=== PATIENT | female | born 1980 | race African-American/Black ===

== ENCOUNTER 2016-11-16 16:14 | Inpatient (IN) | payer OTHER ==
[~2016-11-16] VITALS: Ht 177.8 cm; Wt 171.2 kg
[2016-11-16] VITALS (7 sets, daily range): BP systolic 135–186; BP diastolic 94–107; PULSE 128–137; RESP 19–20; TEMP 98.5; O2SAT 96–100
[~2016-11-16 16:14] MED LIST: CYCL1PAK PO; KCL20 PO; LACTATED RINGER'S 1000 ML INJ 1,000 ML IV ONE; LEVA750T PO; METO25 PO; METO5 PO; METO5TAB46 PO; NEOSTIGMINE 3 MG/3 ML SYR IV ONE; NORMOSOL R INJ 1,000 ML IV ONE; ONDANSETRON HCL 4 MG/2 ML VIAL IV PUSH ONE; PERC5TAB12 PO; PHENYLEPH/NS 1000 MCG/10 ML SYR IV ONE; POTA10TA2 PO; PROPOFOL 200 MG/20 ML AMP IV ONE; TRAM50 PO; TRAZ50TA4 PO
[2016-11-16] MEDS ORDERED: CLINDAMYCIN INJ 900 MG in SODIUM CHLORIDE 0.9% INJ 100 ML IV STA (17:56)
[2016-11-16] MEDS ORDERED: PIPERACIL-TAZO 4.5 GM PREMIX 100 ML IV STA (17:56)
[2016-11-16] MEDS ORDERED: VANCOMYCIN INJ 2,000 MG in SODIUM CHLORID 0.9% 500 ML INJ 500 ML IV STA (17:56)
[2016-11-16] MEDS ORDERED: TETANUS/DIPHTHERIA TOXOID ADULT 0.5 ML VIAL IM ONE (18:15)
--- NOTE | 2016-11-16 18:27 | PD ---
HPI Chief Complaint: Skin Problem Time Seen by Provider: 18:03 Travel History International Travel<30 days: No Contact w/Intl Traveler<30days: No History of Present Illness HPI Patient is a 30 sexual female presenting to the [facility] for evaluation of an abscess to her left chest wall. Patient states the boil on her upper arms started 2 weeks ago, a second spot started 3 days ago her EKG reports night sweats but denies any fevers. She reports her pain as a 10 out of 10 and describes it as throbbing and very sore. Patient also has a history of chronic lymphedema her right lower leg is always more edematous than the left however it is been slightly red for the last 2 days as well. Patient reports that the chest wall spontaneously started draining 2-3 days ago. She denies any chest pain, shortness of breath, abdominal pain. Patient states that she also has a lump on her back that has been there for several months that her sister pointed out to her. This is not painful or tender. PFSH Past Medical History Asthma: No Blood Disorders: No Anxiety: No Depression: No Heart Rhythm Problems: No Cancer: No Cardiovascular Problems: No High Cholesterol: No Chemotherapy: No Chest Pain: No Congestive Heart Failure: No COPD: No Endocrine: No Genitourinary: No Hypertension: Yes Immune Disorder: No Medical other: Yes (morbid obesity) Musculoskeletal: No Neurologic: No Psychiatric: No Reproductive: No Respiratory: No Integumentary: Yes (chronic lymphedema) Radiation Therapy: No Sleep Apnea: No Tetanus Vaccination: Unknown Influenza Vaccination: No ?: Not LMP: 2 YRS : 0 Ovarian Cysts: Yes (bilateral ) Past Surgical History Surgical History: No Previous Surgery Social History Alcohol Use: Yes (weekly ) Tobacco Use: Yes (1-2 cigarettes a day) Substance Use: Yes (marijuana 3-4 times a week) Allergies-Medications (Allergen,Severity, Reaction): Coded Allergies: No Known Allergies (Unverified , 11/16/16) Reported Meds & Prescriptions Reported Meds & Active Scripts Active Reported Metolazone 5 Mg Tab 5 Mg PO DAILY Metoprolol Tartrate 25 Mg Tab 25 Mg PO BID K-Tab (Potassium Chloride) 20 Meq Tab 20 Meq PO BID Trazodone (Trazodone HCl) 50 Mg Tab 50 Mg PO HS Advil (Ibuprofen) 200 Mg Tab 400 Mg PO QID PRN Tylenol Pm Extra Strength (Diphenhydramine-Acetaminophen) 25-500 Mg Tab 2 Tab PO HS Flexeril (Cyclobenzaprine HCl) 10 Mg Tab 10 Mg PO HS Review of Systems Except as stated in HPI: all other systems reviewed are Neg General / Constitutional: Positive: Other (night sweats) Cardiovascular: No: Chest Pain or Discomfort Respiratory: No: Shortness of Breath Gastrointestinal: No: Nausea, Abdominal Pain Musculoskeletal: Positive: Pain Skin: Positive Lesions (left chest wall), Positive Breast Tenderness, Positive Breast Swelling (left breast edema and erythema), Positive Other Physical Exam Narrative GENERAL: Morbidly obese female. Resting comfortably in no acute distress. SKIN: Multiple Ulcerations to left chest wall and left axilla. Draining copious amounts of brown foul-smelling fluid. 6 cm area of fluctuance to the right upper back, no erythema noted to that area. HEAD: Atraumatic. Normocephalic. EYES: Pupils equal and round. No scleral icterus. No injection or drainage. ENT: No nasal bleeding or discharge. Mucous membranes pink and moist. NECK: Trachea midline. No JVD. CARDIOVASCULAR: Regular rate and rhythm. No murmur appreciated. RESPIRATORY: No accessory muscle use. Clear to auscultation. Breath sounds equal bilaterally. GASTROINTESTINAL: Abdomen obese, soft, non-tender, nondistended. Hepatic and splenic margins not palpable. Positive bowel sounds. MUSCULOSKELETAL: No obvious deformities. No clubbing. No cyanosis. Bilateral lower extremity edema right worse than the left mild erythema to the right lower leg. NEUROLOGICAL: Awake and alert. No obvious cranial nerve deficits. Motor grossly within normal limits. Normal speech. PSYCHIATRIC: Appropriate mood and affect; insight and judgment normal. Data Data Last Documented VS Vital Signs Date Time Temp Pulse Resp B/P Pulse Ox O2 Delivery O2 Flow Rate FiO2 11/16/16 18:07 97 Room Air 11/16/16 17:54 128 19 138/97 11/16/16 16:16 98.5 Orders Electrocardiogram (11/16/16 17:56) Complete Blood Count With Diff (11/16/16 17:56) Comprehensive Metabolic Panel (11/16/16 17:56) Prothrombin Time / Inr (Pt) (11/16/16 17:56) Act Partial Throm Time (Ptt) (11/16/16 17:56) Lactic Acid Sepsis Protocol (11/16/16 17:56) Magnesium (Mg) (11/16/16 17:56) Ckmb (Isoenzyme) Profile (11/16/16 17:56) Troponin I (11/16/16 17:56) Urinalysis - C+S If Indicated (11/16/16 17:56) Blood Culture (11/16/16 17:56) Wound Culture And Gram Stain (11/16/16 17:56) Blood Glucose (11/16/16 17:56) Ecg Monitoring (11/16/16 17:56) Iv Access Insert/Monitor (11/16/16 17:56) Oximetry (11/16/16 17:56) Oxygen Administration (11/16/16 17:56) Piperacil-Tazo 4.5 Gm Premix (Zosyn 4.5 (11/16/16 17:56) Clindamycin Inj (Cleocin Inj) (11/16/16 17:56) Vancomycin Inj (Vancomycin Inj) (11/16/16 17:56) Ed Urine Pregnancytest Poc (11/16/16 17:56) Tetanus/Diphtheria Tox Adult (Tetanus/Di (11/16/16 18:15) Us Leg Venous Doppler (11/16/16 ) Admit Order (Ed Use Only) (11/16/16 18:34) MDM Medical Decision Making Medical Screen Exam Complete: Yes Emergency Medical Condition: Yes Interpretation(s) Vital Signs Date Time Temp Pulse Resp B/P Pulse Ox O2 Delivery O2 Flow Rate FiO2 11/16/16 16:55 171/103 11/16/16 16:16 98.5 137 20 186/107 96 Room Air Differential Diagnosis Necrotizing fasciitis versus abscess versus cellulitis versus gangrene Narrative Course Patient is a 36-year-old female presenting to the emergency department for evaluation of left chest wall wound that started 2 weeks ago as a boil and has progressed, opening yesterday spontaneously reining copious amounts of brown foul-smelling fluid. Patient has multiple ulcerations to her left lateral chest wall, the erythema extends to the left breast which is firm and tender. Initial EKG shows sinus tachycardia with a rate of 121. Due to the extensive nature of the chest wall wound, Dr. Jose Armando Lainez was paged and notified regarding patient's presentation. Dr. Lainez came to the emergency department to evaluate patient, he will be taking the patient to the OR as soon as possible for I&D. Dr. Lainez requested patient be placed in intensive care, Dr. Wright intensivists paged for admission. Admission order placed. Labs and imaging ordered and pending, sepsis protocol initiated. Vancomycin, clindamycin, Zosyn ordered. Patient will be kept nothing by mouth, she last ate 2 hours ago. Patient is aware of plan of care. Patient is agreeable. Patient's vital signs are stable currently. My attending physician also evaluated patient. Labs, wound culture, IV access obtained prior to patient going to the OR at 1900 hrs. Venous Doppler of the right lower extremity was ordered due to erythema and increased edema to the right lower leg. 1900 patient transferred to the OR. Sepsis Criteria SIRS Criteria (2 or more): Heart rate over 90, WBC > 59014, < 4000 or > 10% bands Sepsis Criteria (SIRS+source): Infect source susp/known Severe Sepsis (+one): Lactate >2 Diagnosis Primary Impression: Sepsis Qualified Code: A41.9 - Sepsis, due to unspecified organism Additional Impressions: Abscess of chest wall Hypokalemia Hypertension Qualified Code: I10 - Essential hypertension Chronic acquired lymphedema Morbid obesity Qualified Code: E66.01 - Morbid obesity, unspecified obesity type Admitting Information Admitting Physician Requests: Admit Condition: Naheed Robin Nov 16, 2016 18:27
[2016-11-16] MEDS ORDERED: DIPH1TAB36 PO (18:35)
[2016-11-16] MEDS ORDERED: POTA1TAB4 PO (18:35)
[2016-11-16] MEDS ORDERED: TRAZ50TA12 PO (18:35)
[2016-11-16] MEDS ORDERED: IBUP-988 PO (18:35)
[2016-11-16] MEDS ORDERED: METO25TA3 PO (18:37)
[2016-11-16] MEDS ORDERED: CYCL1TAB29 PO (18:37)
[2016-11-16] MEDS ORDERED: METO5TAB3 PO (18:37)
[2016-11-16 19:04] LABS: AUTOMATED NEUTROPHIL # 14.2 TH/MM3 (1.8-7.7); BASOPHIL # 0.1 TH/MM3 (0-0.2); BASOPHIL % 0.4 % (0.0-2.0); EOSINOPHIL # 0.1 TH/MM3 (0-0.4); EOSINOPHIL % 0.6 % (0.0-4.0); HEMATOCRIT 39.2 % (35.0-46.0); LYMPH % 7.2 % (9.0-44.0); LYMPHOCYTE # 1.2 TH/MM3 (1.0-4.8); MEAN CELL VOLUME 85.7 FL (80.0-100.0); MEAN CORPUSCULAR HEMOGLOBIN 26.2 PG (27.0-34.0); MEAN CORPUSCULAR HGB CONC 30.6 % (32.0-36.0); NEUT % 83.8 % (16.0-70.0); PLATELET COUNT 335 TH/MM3 (150-450); RED BLOOD COUNT 4.57 MIL/MM3 (4.00-5.30); RED CELL DISTRIBUTION WIDTH 17.5 % (11.6-17.2); WHITE BLOOD COUNT 16.9 TH/MM3 (4.0-11.0)
[2016-11-16 19:11] LABS: HEMO FLAGS AUTO DIFF
[2016-11-16] MEDS ORDERED: KETAMINE HCL 500 MG/5 ML VIAL ONE (19:12)
[2016-11-16 19:19] LABS: ANION GAP 13 MEQ/L (5-15); AST (GOT) 33 U/L (15-37); BICARBONATE 20.5 MEQ/L (21.0-32.0); BLOOD UREA NITROGEN 11 MG/DL (7-18); CHLORIDE 105 MEQ/L (98-107); GLOMERULAR FILTRATION RATE 80 ML/MIN (>89); MAGNESIUM 1.8 MG/DL (1.5-2.5); POTASSIUM 3.1 MEQ/L (3.5-5.1); SODIUM (NA) 138 MEQ/L (136-145)
[2016-11-16 19:23] LABS: ALKALINE PHOSPHATASE 174 U/L (45-117); ALT (GPT) 36 U/L (10-53); TOTAL BILIRUBIN ADULT 0.2 MG/DL (0.2-1.0)
[2016-11-16 19:29] LABS: APTT (PATIENT) 27.2 SEC (24.3-30.1)
[2016-11-16 19:49] LABS: SCAN/DIFF AUTO DIFF CONFIRMED
[2016-11-16 19:54] LABS: CREATINE KINASE 80 U/L (26-192)
[2016-11-16 20:22] LABS: BLOOD GAS BASE EXCESS -3.5 mmol/L (-2-2); BLOOD GAS CARBOXYHEMOGLOBIN 1.2 % (0-4); BLOOD GAS HCO3 21 mmol/L (22-26); BLOOD GAS METHEMOGLOBIN 1.3 % (0-2); BLOOD GAS O2 HGB SATURATION 96 % (90-100); BLOOD GAS OXYGEN CONTENT 17.9 Vol % (12.0-20.0); BLOOD GAS PCO2 35 mmHg (38-42); BLOOD GAS PO2 183 mmHg (61-120); BLOOD GAS TOTAL HGB 12.9 G/DL (12.0-16.0); CRITICAL VALUE NO; TEMP CORR TO 98.6
[2016-11-16 20:23] LABS: DRAW SITE OR GAS; OXYGEN DEVICE OR GAS; STAT YES
[2016-11-16 20:52] LABS: LACTIC ACID GHOST NOT REPORTABLE
[2016-11-16] MEDS ORDERED: PROPOFOL 1000 MG/100 ML INJ 100 ML ONE (21:35)
--- NOTE | 2016-11-16 21:45 | HHI.PR ---
Immediate Post Op Note Procedure Date: Nov 16, 2016 Pre Op Diagnosis: (1) Morbid obesity (2) Sepsis (3) Abscess of chest wall (4) Necrotizing cellulitis Post Op Diagnosis: (1) Abscess of chest wall (2) Morbid obesity (3) Sepsis (4) Necrotizing cellulitis Surgeon: Jose Armando Lainez Web Development Manager(s): dominga Procedure: wide local excision necrotizing soft tissue infection LEFT axilla, chest/breast , back [id number] Anesthesia: General Patient to: PACU Patient Condition: Critical Jose Armando Lainez MD Nov 16, 2016 21:45
[2016-11-16] MEDS ORDERED: fentaNYL CITRATE 250 MCG/5 ML AMP ONE (22:18)
[2016-11-16] MEDS: LACTATED RINGER'S 1000 ML INJ 1,000 ML IV SCH (22:45)
--- NOTE | 2016-11-16 22:52 | HHI.HP ---
[facility] Service Critical Care Medicine Primary Care Physician Jimmie Gutierrez Admission Diagnosis chest wall infection, sepsis Diagnosis: Travel History International Travel<30 Days: No Contact w/Intl Traveler <30 Da: No History of Present Illness 36 yo morbidly obese female with past medical history of hypertension, bilateral lower extremity lymphedema who has undergone operative debridement for necrotizing fasciitis of left axilla, chest, back. Reportedly, about two weeks ago she developed a boil in left axilla after shaving. This eventually drained spontaneously and showed some initial improvement. She then developed blisters of the axilla and chest wall. About 2 days ago she developed some drainage from left chest. She had subjective fevers. She presented to [facility] where Dr. Lainez was consulted emergently for evaluation for necrotizing fasciitis. She provided informed surgical consent and was taken emergently to OR where she underwent debridement of left axilla, breast, left chest wall, back with wound VAC placement. Anesthesia records indicate that she was intubated with 2 Grant without reported difficulty. She received 2500 crystalloid. Estimated blood loss was 350. She received Zosyn, clindamycin, vancomycin. She was briefly on pressors in the OR but these have been weaned off. She is to remain intubated for postoperative resuscitation and for tentative plan to return to OR Monday morning 11/18/16 for debridement and wound vac change. Review of Systems ROS Limitations: Intubated Past Family Social History Allergies: Coded Allergies: No Known Allergies (Unverified , 11/16/16) Past Medical History Hypertension Ovarian cyst Chronic pain Morbid obesity Past Surgical History Denied past surgical history Reported Medications Trazodone 50 mg by mouth daily at bedtime Diphenhydramine/acetaminophen 25/502 tabs by mouth daily at bedtime when necessary sleep Metoprolol 25 mill grams by mouth twice a day for tachycardia Flexeril 10 mg by mouth daily at bedtime for muscle spasm Advil 400 mill grams by mouth 4 times a day when necessary pain Potassium chloride 20 mg by mouth twice a day Metolazone 5 mg by mouth daily for edema Family History Mother has diabetes Social History Unable to obtain social history from patient because she is currently intubated. She reported to Dr. lainez that she is a smoker. During prior admission she reported that she quit smoking in [address] lainez that she drinks alcohol on the weekends. She previously reported drinking a sixpack 2-3 days a week during a prior admission. She reported history of marijuana use. Physical Exam Vital Signs Vital Signs Date Time Temp Pulse Resp B/P Pulse Ox O2 Delivery O2 Flow Rate FiO2 11/16/16 22:00 96 70 11/16/16 22:00 96 70 11/16/16 19:02 124 19 135/94 98 11/16/16 18:07 97 Room Air 11/16/16 17:54 128 19 138/97 98 Room Air 11/16/16 16:55 171/103 11/16/16 16:16 98.5 137 20 186/107 96 Room Air Physical Exam Drips: Propofol 50 g per KG per minute GENERAL: Morbidly obese female who is orotracheally intubated. SKIN: Warm and dry. HEAD: Atraumatic. Normocephalic. EYES: Pupils equal and round. No scleral icterus. No injection or drainage. ENT: No nasal bleeding or discharge. Mucous membranes pink and moist. NECK: Trachea midline. No JVD. CARDIOVASCULAR: Regular rate and rhythm. No murmurs rubs or gallops. RESPIRATORY: No accessory muscle use. Clear to auscultation. Breath sounds equal bilaterally. GASTROINTESTINAL: Abdomen soft, non-tender, nondistended. Hepatic and splenic margins not palpable. : Marvin in place with yellow urine output. MUSCULOSKELETAL: Extremities without clubbing, cyanosis. Left breast with some swelling. Wound vac in place Left chest wall with scant serosanginous output. No surrounding erythema. VASC: Right IJ central venous line in place with dressing clean/dry/intact. Right radial art line in place. NEUROLOGICAL: Sedated in PACU upon return from OR. Laboratory Laboratory Tests Test 11/16/16 11/16/16 18:45 20:06 White Blood Count 16.9 Red Blood Count 4.57 Hemoglobin 12.0 Hematocrit 39.2 Mean Corpuscular Volume 85.7 Mean Corpuscular Hemoglobin 26.2 Mean Corpuscular Hemoglobin 30.6 Concent Red Cell Distribution Width 17.5 Platelet Count 335 Mean Platelet Volume 8.2 Neutrophils (%) (Auto) 83.8 Lymphocytes (%) (Auto) 7.2 Monocytes (%) (Auto) 8.0 Eosinophils (%) (Auto) 0.6 Basophils (%) (Auto) 0.4 Neutrophils # (Auto) 14.2 Lymphocytes # (Auto) 1.2 Monocytes # (Auto) 1.4 Eosinophils # (Auto) 0.1 Basophils # (Auto) 0.1 CBC Comment AUTO DIFF Differential Comment AUTO DIFF CONFIRMED Prothrombin Time 11.0 Prothromb Time International 1.0 Ratio Activated Partial 27.2 Thromboplast Time Sodium Level 138 Potassium Level 3.1 Chloride Level 105 Carbon Dioxide Level 20.5 Anion Gap 13 Blood Urea Nitrogen 11 Creatinine 0.96 Estimat Glomerular Filtration 80 Rate Random Glucose 265 Lactic Acid Level 3.8 Calcium Level 8.5 Magnesium Level 1.8 Total Bilirubin 0.2 Aspartate Amino Transf 33 (AST/SGOT) Alanine Aminotransferase 36 (ALT/SGPT) Alkaline Phosphatase 174 Total Creatine Kinase 80 Troponin I LESS THAN 0.02 Total Protein 7.2 Albumin 1.7 Blood Gas Puncture Site OR GAS Blood Gas Patient Temperature 98.6 Blood Gas HCO3 21 Blood Gas Base Excess -3.5 Blood Gas Oxygen Saturation 96 Arterial Blood pH 7.39 Arterial Blood Partial 35 Pressure CO2 Arterial Blood Partial 183 Pressure O2 Arterial Blood Oxygen Content 17.9 Arterial Blood 1.2 Carboxyhemoglobin Arterial Blood Methemoglobin 1.3 Blood Gas Hemoglobin 12.9 Oxygen Delivery Device OR GAS Date/Time Procedure Status Source Growth 11/16/16 18:50 Gram Stain Received Wound Chest Pending 11/16/16 18:50 Wound Culture Received Wound Chest Pending 11/16/16 18:45 Aerobic Blood Culture Received Blood Peripheral Pending 11/16/16 18:45 Anaerobic Blood Culture Received Blood Peripheral Pending Result Diagram: 11/16/16 1845 11/16/16 1845 Assessment and Plan Assessment and Plan NEURO: Propofol for sedation Target RASS -2 RESP: Adjust vent to PRVC TV 450 R 18 PEEP 8 IT O.8 Chest x-ray - satisfactory endotracheal tube position. Satisfactory central line position. L lung opacities and opacity in right base. CV: Septic shock Monitor hemodynamics. LR at 150 mL/h postoperatively likely came back off in a.m.. Currently off pressors. Follow-up lactic acid. GI: Morbid obesity Insert a G-tube in place to low intermittent wall suction. Can initiate enteral feeds in a.m. if remains stable overnight. FEN/RENAL: Hypokalemia Marvin in place. Monitor intake and output. Monitor I's and replace as indicated per ICU electrolyte replacement protocol. ID: Septic shock Necrotizing fasciitis left axilla/chest wall /breast. Status post debridement of the chest wall, axilla and back by Dr. lainez 11/16/16 with wound VAC placement. Plan to return to OR for further debridement 11/18/16. Empiric coverage with clindamycin, vancomycin, Zosyn. Infectious disease consult. Blood cultures pending. Intraoperative wound culture pending. CXR with multifocal opacities. Check sputum culture. Check BNP. HEME: Bilateral lower ultrasound negative for DVT 11/16/16. ENDO: Hyperglycemia without known history of diabetes Obtain hemoglobin A1c. Dose insulin sliding scale every 6 hours. PROPH: Protonix 40 mg IV daily for stress ulcer prophylaxis. Lovenox for DVT prophylaxis when okay with general surgery. ACCESS: Right IJ central venous line placed in OR 11/16/16. Right radial art line placed in OR 11/16/16 Full code Discussed with . Discussed with MEDIA STRATEGIST. Critical care time 60 minutes exclusive of separately billable procedures. Laura Wright MD Nov 16, 2016 22:52
--- NOTE | 2016-11-16 22:59 | RADRPT ---
EXAM DATE/TIME: 11/16/2016 22:19 [place] COMPARISON: CHEST SINGLE AP, July 22, 2015, 18:22. INDICATIONS : Central line placement. MEDICAL HISTORY : Hypertension. Ovarian cysts. Obesity. Chronic pain. Nonhealing wounds right lower extremity. SURGICAL HISTORY : None. ENCOUNTER: Initial ACUITY: 1 day PAIN SCORE: Non-responsive. LOCATION: Bilateral chest FINDINGS: Endotracheal tube tip is in satisfactory position. Right central line is in superior vena cava. No pn eumothorax. There is patchy airspace disease in the left lung and right lung base medially. Different ial diagnosis includes aspiration or pneumonia. CONCLUSION: 1. Right central line tip in superior vena cava without pneumothorax. Patchy airspace disease in the left lung and right lung base medially. William James MD on November 16, 2016 at 22:54 Board Certified Radiologist. This report was verified electronically.
[2016-11-16] MEDS ORDERED: POTASSIUM PHOSPHATE MONOBASIC 500 MG TAB PO PRN (23:00)
[2016-11-16] MEDS ORDERED: MAGNESIUM OXIDE 400 MG TAB PO PRN (23:00)
[2016-11-16] MEDS ORDERED: POTASSIUM CL 40 MEQ/30 ML LIQ UDC PO/TUBE PRN ×2 (23:00)
[2016-11-16] MEDS ORDERED: MAGNESIUM SULFATE INJ 4 GM in SODIUM CHLORIDE 0.9% INJ 92 ML IV PRN (23:00)
[2016-11-16] MEDS ORDERED: SODIUM CHLORIDE 0.9% FLUSH 5 ML FLUSH IV FLUSH PRN (23:00)
[2016-11-16] MEDS ORDERED: POTASSIUM CHLOR 20 MEQ PREMIX 100 ML IV PRN ×2 (23:00)
[2016-11-16] MEDS ORDERED: MISCELLANEOUS NURSING INFORMATION XX SCH (23:00)
[2016-11-16] MEDS ORDERED: CHLORHEXIDINE GLUCONATE 2 % 1 PACK (2 CLOTHS) TOP PRN (23:00)
[2016-11-16] MEDS ORDERED: ONDANSETRON HCL 4 MG/2 ML VIAL IV PRN (23:00)
[2016-11-16] MEDS ORDERED: POTASSIUM PHOSPHATE INJ 30 MMOL in SODIUM CHLOR 0.9% 250 ML INJ 250 ML IV PRN (23:00)
[2016-11-16] MEDS ORDERED: POTASSIUM CHLOR 40 MEQ PREMIX 100 ML IV PRN ×2 (23:00)
[2016-11-16] MEDS ORDERED: MAGNESIUM SULFATE INJ 2 GM in SODIUM CHLORIDE 0.9% INJ 96 ML IV PRN (23:00)
[2016-11-16] MEDS ORDERED: SODIUM PHOSPHATE INJ 30 MMOL in SODIUM CHLOR 0.9% 250 ML INJ 240 ML IV PRN (23:00)
[2016-11-16] MEDS ORDERED: POTASSIUM PHOSPHATE MONOBASIC 500 MG TAB PO/TUBE PRN (23:00)
[2016-11-16] MEDS ORDERED: *morphine SULFATE 8 MG/ML PERIprocedure ONLY ONE (23:14)
[2016-11-16] MEDS: oxyCODONE/ACETAMINOPHEN 5 MG/325 MG TAB PO SCH (23:15)
[2016-11-16] MEDS ORDERED: Vancomycin Consult Pharmacy 1 EA OTHER SCH (23:15)
[2016-11-16] MEDS ORDERED: oxyCODONE HCL ORAL CONC 20 MG/ML SYRINGE PO PRN (23:15)
--- NOTE | 2016-11-16 23:56 | MB ---
cc: ELEAZAR SOL M.D. CONSULTATION AND OPERATIVE NOTE DATE OF CONSULTATION: 11/16/2016 REASON FOR CONSULTATION: Necrotizing soft tissue infection, left axilla, left chest and back. HISTORY OF PRESENT ILLNESS Ms. Martins is a 36-year-old -Tong[place] female who came to the emergency department this afternoon complaining of a foul-smelling left chest infection. She states that about a week ago she was shaving her arm pit and got a small wound. It made a small boil that opened up. It appeared to get better but then yesterday she noticed the infection was spreading. She reported a very foul odor. She states the blisters were coming up under her axilla and going down onto her chest. She reports she had some night sweats and a subjective fever. She states the pain was 10/10 in the left axilla. She states that the wound started draining a foul-smelling clear fluid yesterday. She came to the emergency department this afternoon and was seen and evaluated by the nurse practitioner. I received a stat consultation for suspected necrotizing fasciitis of the left axilla, chest and back. I came to see the patient immediately. Upon entering the room, there was a horrific foul-smelling odor coming out that smelled like flesh. The patient had a very large wound probably 20 x 20 cm, in the left axilla with multiple areas of necrotic skin and fat with active drainage. I immediately went out and notified the operating room that the patient needed to go to the OR stat for surgical debridement. The patient was advised this was an emergent surgical procedure and a very significant risk including , and she was agreeable. PAST MEDICAL HISTORY 1. Morbid obesity 2. Chronic lymphedema right lower extremity. 3. Hypertension. The patient denies diabetes. PAST SURGICAL HISTORY She reports no previous surgical history. MEDICATIONS: 1. Metolazone 2. Metoprolol 3. K-Tab 4. Trazodone 5. Advil 6. Tylenol 7. Flexeril ALLERGIES: NO KNOWN DRUG ALLERGIES. SOCIAL HISTORY She lives in [place] but prefers to come over here for her medical care. She smokes. She drinks alcohol mainly on the weekend, occasionally uses marijuana. FAMILY HISTORY: Noncontributory. PHYSICAL EXAMINATION: The patient is morbidly obese. Weight is approximately 300 pounds. Her BMI is 41. Vital signs: Temperature is 98, pulse 140, blood pressure is 170/100. General: Morbidly obese female with extremely foul smelling odor coming from her left axilla. She is awake, alert and talking. She reports 10/10 pain in the left axilla. HEENT: Pupils equal, round, reactive to light. Sclerae are white. Oropharynx is clear and moist. Neck: Supple. No masses. Lungs: Clear to auscultation bilaterally. Heart: S1-S2, no murmur, tachycardiac. Abdomen: Morbidly obese, soft, nontender. Extremities: She has a 20 x 20 cm necrotic foul-smelling left axillary wound with active drainage. This is consistent with necrotizing fasciitis as there is skin and fat exposure and dishwater type clear drainage coming from multiple areas of necrotic skin and fat. She has good range of motion all four extremities. Neurologically: She is awake, alert and oriented x3. LABORATORY DATA White blood cell count is 16, hemoglobin 12, platelet count is 355. Electrolytes are within normal limits except for potassium of 3.1, glucose of 265. Albumin is 1.7, INR is 1.0. IMPRESSION Necrotizing soft tissue infection left axilla, left chest and left back. PLAN The patient needs to go to the operating room immediately. Operating room was notified this is a STAT surgical procedure and the patient needs to come immediately for immediate surgical debridement. The patient understands there will be significant soft tissue loss and this type of infection can lead to sepsis and . Unfortunately there are no family members available to discuss this with. The patient will be taken to the operating room immediately. OPERATIVE NOTE DATE OF SURGERY: 11/16/2016 PREOPERATIVE DIAGNOSIS Necrotizing soft tissue infection left breast, left axilla, left back, 20 x 20 cm. PROCEDURE: Excision and debridement necrotizing soft tissue infection, left axilla 40 x 25 cm. SURGEON Eleazar Sol MD. ANESTHESIA General endotracheal anesthesia COMPLICATIONS None. INDICATIONS FOR PROCEDURE: Ms. Martins is an unfortunate 36 year-old -Tongan female presented with a necrotizing soft tissue infection of the left axilla going out onto her left breast and down onto her left flank and back. She requires immediate surgical debridement. The patient understands this is an emergent surgical procedure and carries significant risks including . She expressed understanding. DETAILS OF PROCEDURE: The patient was brought to the operating room and placed in the right lateral decubitus position. Appropriate padding for hips, knees, shoulders and ankles. Left axilla, left arm, left breast, left chest and back were all prepped and draped in a standard surgical fashion. Using electrocautery cut dissection a generous margin of normal tissue was excised circumferentially around the wound. Dissection proceeded all the way down to the fascia and muscle of the left axilla and chest. Dissection proceeded onto the left breast involving the outer 1/3 of the left breast. Multiple pockets of pus and necrotic skin, fat and fascia were identified and excised with generous margins. On the left axilla care was taken not to injure the long thoracic and thoracodorsal nerves. The thoracodorsal artery was sacrificed as it was involved in the soft tissue infection. This was tied off with a 2-0 Vicryl suture. Once all necrotic skin, fat and muscular fascia had been identified and excised, attention was now directed to copious irrigation. Three liters of warm saline solution was used to power irrigate out the entire area. We then used approximately 500 cc of peroxide onto the tissue itself. Once we did this there was no other signs of gross active infection. We then irrigated out a second time with 3 liters warm saline solution. Please note that this irrigation and debridement took approximately 2 hours in order to achieve gross negative margins from the infection. Once we did this a large sponge Vac was placed. Overall wound dimensions were approximately 25 x 40 cm. Once the Vac was applied, the patient was returned to the supine position and brought to the PACU, intubated. Critical care was consulted and I recommended the patient be left intubated as she will likely need to return to the operating room on Monday for a second look and possible further debridement. MD PAPI Sweeney/SELWYN /9:37 PM /11:33 PM
[2016-11-17] VITALS (18 sets, daily range): BP systolic 99–117; BP diastolic 54–80; PULSE 101–124; RESP 18–22; TEMP 97.5–98.8; O2SAT 100
--- NOTE | 2016-11-17 00:17 | RADRPT ---
EXAM DATE/TIME: 11/16/2016 22:30 [place] COMPARISON: No previous studies available for comparison. INDICATIONS : Right leg swelling. MEDICAL HISTORY : Hypertension. Ovarian cysts. Substance use. Chronic lymphedema. Morbid obesity. SURGICAL HISTORY : Left axilla abscess removal. ENCOUNTER: Initial ACUITY: 1 day PAIN SCORE: 10/10 LOCATION: Right leg. TECHNIQUE: Venous ultrasound of the leg was performed from the inguinal ligament to the proximal calf. Real-charly e, color Doppler and spectral tracing, compression and augmentation techniques were used. FINDINGS: There is normal compressibility of the deep venous system from the inguinal region to the proximal ca lf. No echogenic clot is seen in the lumen of the common femoral, femoral, popliteal, and posterior tibial veins. There is a normal response of the venous system to proximal and distal augmentation an d respiration. CONCLUSION: Normal examination. William James MD on November 17, 2016 at 0:16 Board Certified Radiologist. This report was verified electronically.
[2016-11-17] MEDS: PIPERACIL-TAZO 4.5 GM PREMIX 100 ML IV SCH ×4 (00:46→17:59)
[2016-11-17] MEDS ORDERED: VANCOMYCIN INJ 2,200 MG in SODIUM CHLORID 0.9% 500 ML INJ 500 ML IV SCH (01:00)
[2016-11-17 01:39] LABS: HEMATOCRIT 25.8 % (35.0-46.0); MEAN CORPUSCULAR HEMOGLOBIN 27.3 PG (27.0-34.0); PLATELET COUNT 315 TH/MM3 (150-450); REVIEW FLAG FINAL; WHITE BLOOD COUNT 18.9 TH/MM3 (4.0-11.0)
[2016-11-17] MEDS: PROPOFOL 1000 MG/100 ML INJ 100 ML IV SCH ×8 (01:52→20:12)
[2016-11-17 02:27] LABS: MAGNESIUM 1.6 MG/DL (1.5-2.5); POTASSIUM 3.1 MEQ/L (3.5-5.1)
[2016-11-17 02:44] LABS: CALCIUM-PROTEIN CORRECTED 8.6 MG/DL (8.5-10.1)
[2016-11-17 03:00] LABS: BACTERIA, URINE RARE /hpf; BLOOD, URINE MOD (NEG); COMMENT (UR) CATH-CULTURE IND; CULTURE IF INDICATED CATH CULTURE IND; GLUCOSE,URINE NEG (NEG); HYALINE CAST, URINE 1 /lpf (RARE); KETONE, URINE NEG (NEG); MUCUS URINE FEW /lpf (OCC); NITRITE,URINE POS (NEG); RENAL EPITHELIAL CELLS <1 /hpf; SQUAMOUS EPITHELIAL CELL URINE <1 /hpf (0-5); URINE COLOR YELLOW (YELLW/STRAW)
[2016-11-17] MEDS: CHLORHEXIDINE GLUCONATE 2 % 1 PACK (2 CLOTHS) TOP SCH (04:00)
[2016-11-17] MEDS: RESP: ALBUTEROL 2.5 MG/IPRATROPIUM 0.5 MG NEB (SCH) INH ×4 (04:05→20:42)
[2016-11-17] MEDS: CLINDAMYCIN INJ 900 MG in SODIUM CHLORIDE 0.9% INJ 100 ML IV SCH ×3 (04:32→20:12)
[2016-11-17] MEDS: oxyCODONE/ACETAMINOPHEN 5 MG/325 MG TAB PO SCH ×3 (04:36→17:49)
[2016-11-17] MEDS: LACTATED RINGER'S 1000 ML INJ 1,000 ML IV SCH ×2 (04:38→12:05)
[2016-11-17 05:40] LABS: AUTOMATED NEUTROPHIL # 15.9 TH/MM3 (1.8-7.7); BASOPHIL # 0.1 TH/MM3 (0-0.2); BASOPHIL % 0.3 % (0.0-2.0); EOSINOPHIL # 0.2 TH/MM3 (0-0.4); EOSINOPHIL % 1.2 % (0.0-4.0); HEMATOCRIT 26.2 % (35.0-46.0); LYMPH % 9.2 % (9.0-44.0); LYMPHOCYTE # 1.8 TH/MM3 (1.0-4.8); MEAN CELL VOLUME 82.6 FL (80.0-100.0); MEAN CORPUSCULAR HEMOGLOBIN 27.3 PG (27.0-34.0); MONO % 6.8 % (0.0-8.0); NEUT % 82.5 % (16.0-70.0); PLATELET COUNT 345 TH/MM3 (150-450); RED BLOOD COUNT 3.17 MIL/MM3 (4.00-5.30); RED CELL DISTRIBUTION WIDTH 17.3 % (11.6-17.2); WHITE BLOOD COUNT 19.3 TH/MM3 (4.0-11.0)
[2016-11-17 05:52] LABS: HEMO FLAGS AUTO DIFF
[2016-11-17 06:11] LABS: BICARBONATE 23.7 MEQ/L (21.0-32.0); POTASSIUM 3.4 MEQ/L (3.5-5.1)
[2016-11-17 06:28] LABS: CALCIUM-PROTEIN CORRECTED 8.2 MG/DL (8.5-10.1)
[2016-11-17 06:36] LABS: BLOOD GAS BASE EXCESS -2.4 mmol/L (-2-2); BLOOD GAS CARBOXYHEMOGLOBIN 0.6 % (0-4); BLOOD GAS HCO3 21 mmol/L (22-26); BLOOD GAS O2 HGB SATURATION 98 % (90-100); BLOOD GAS OXYGEN CONTENT 12.2 Vol % (12.0-20.0); BLOOD GAS PCO2 32 mmHg (38-42); BLOOD GAS PO2 260 mmHg (61-120); BLOOD GAS TOTAL HGB 8.4 G/DL (12.0-16.0); CRITICAL VALUE NO; OXYGEN DEVICE VENTILATOR; TEMP CORR TO 98.6
[2016-11-17 06:37] LABS: DRAW SITE ART LINE; FIO2 70 %; STAT NO; VENT SETTINGS PRVC/AC
[2016-11-17 08:19] LABS: BANDS 38 % (0-6); EOSINOPHILS 1 % (0-4); METAMYELOCYTES 1 % (0-1); NEUTROPHIL # MANUAL DIFF 17.6 TH/MM3 (1.8-7.7); PLATELET ESTIMATE SMEAR NORMAL (NORMAL); PLATELET MORPHOLOGY NORMAL (NORMAL); POLYS (SEG NEUTROPHILS) 52 % (16-70); SCAN/DIFF FINAL DIFF MANUAL; WBC DIFF SAMPLE 100
[2016-11-17] MEDS: CHLORHEXIDINE 0.12% (ORAL KIT) 15 ML CUP MT SCH ×2 (08:58→20:00)
[2016-11-17] MEDS: PANTOPRAZOLE SODIUM 40 MG VIAL IV SCH (08:58)
[2016-11-17] MEDS: HYDROmorphone HCL PF 1 MG/ML VIAL IV PUSH PRN ×3 (08:58→20:59)
[2016-11-17] MEDS: SODIUM CHLORIDE 0.9% FLUSH 5 ML FLUSH IV FLUSH SCH ×2 (08:58→20:13)
[2016-11-17] MEDS: DOCUSATE SODIUM 100 MG CAP TUBE SCH ×2 (09:00→20:13)
[2016-11-17] MEDS ORDERED: DEXTROSE 50% IN WATER 50 ML VIAL(D50) IV PUSH PRN (09:15)
[2016-11-17] MEDS: INSULIN ASPART SUPPLEMENTAL SCALE SQ SCH ×3 (09:15→21:15)
[2016-11-17] MEDS ORDERED: GLUCAGON 1 MG/ML VIAL OTHER PRN (09:15)
--- NOTE | 2016-11-17 10:39 | HHI.CCPN ---
Subjective Remarks/Hospital Course 11/16: 36 yo morbidly obese female with past medical history of hypertension, bilateral lower extremity lymphedema who has undergone operative debridement for necrotizing fasciitis of left axilla, chest, back. Reportedly, about two weeks ago she developed a boil in left axilla after shaving. This eventually drained spontaneously and showed some initial improvement. She then developed blisters of the axilla and chest wall. About 2 days ago she developed some drainage from left chest. She had subjective fevers. She presented to [facility] ED where Dr. Lainez was consulted emergently for evaluation for necrotizing fasciitis. She provided informed surgical consent and was taken emergently to OR where she underwent debridement of left axilla, breast, left chest wall, back with wound VAC placement. Anesthesia records indicate that she was intubated with 2 Grant without reported difficulty. She received 2500 crystalloid. Estimated blood loss was 350. She received Zosyn, clindamycin, vancomycin. She was briefly on pressors in the OR but these have been weaned off. She is to remain intubated for postoperative resuscitation and for tentative plan to return to OR Monday morning 11/18/16 for debridement and wound vac change. 11/17: Remains sedated, orally intubated on mechanical ventilation. Objective Vital Signs Date Time Temp Pulse Resp B/P Pulse Ox O2 Delivery O2 Flow Rate FiO2 11/17/16 08:36 100 45 11/17/16 06:00 Mechanical Ventilator 11/17/16 05:42 21 11/17/16 04:00 97.8 108 116/72 Intake and Output 11/16/16 11/16/16 11/17/16 08:00 16:00 00:00 Intake Total 2700 ml Output Total 650 ml Balance 2050 ml Result Diagram: 11/17/16 0510 11/17/16 0510 Other Results Laboratory Tests Test 11/16/16 11/17/16 20:06 06:20 Blood Gas Puncture Site OR GAS ART LINE Blood Gas Patient Temperature 98.6 98.6 Blood Gas HCO3 21 mmol/L 21 mmol/L (22-26) (22-26) Blood Gas Base Excess -3.5 mmol/L -2.4 mmol/L (-2-2) (-2-2) Blood Gas Oxygen Saturation 96 % (90-100) 98 % (90-100) Arterial Blood pH 7.39 7.44 (7.380-7.420) (7.380-7.420) Arterial Blood Partial 35 mmHg (38-42) 32 mmHg (38-42) Pressure CO2 Arterial Blood Partial 183 mmHg 260 mmHg Pressure O2 (61-120) (61-120) Arterial Blood Oxygen Content 17.9 Vol % 12.2 Vol % (12.0-20.0) (12.0-20.0) Arterial Blood 1.2 % (0-4) 0.6 % (0-4) Carboxyhemoglobin Arterial Blood Methemoglobin 1.3 % (0-2) 1.0 % (0-2) Blood Gas Hemoglobin 12.9 G/DL 8.4 G/DL (12.0-16.0) (12.0-16.0) Oxygen Delivery Device OR GAS VENTILATOR Blood Gas Ventilator Setting PRVC/AC Blood Gas Inspired Oxygen 70 % Objective Remarks Drips: Propofol GENERAL: Morbidly obese female who is orotracheally intubated. SKIN: Warm and dry. HEAD: Atraumatic. Normocephalic. EYES: Pupils equal and round. No scleral icterus. No injection or drainage. ENT: No nasal bleeding or discharge. Mucous membranes pink and moist. NECK: Trachea midline. No JVD. CARDIOVASCULAR: Regular rate and rhythm. No murmurs rubs or gallops. RESPIRATORY: Orally intubated on mechanical ventilation, Clear to auscultation. Breath sounds equal bilaterally. No wheezing or crackles GASTROINTESTINAL: Abdomen soft, non-tender, nondistended. Hepatic and splenic margins not palpable. : Marvin in place MUSCULOSKELETAL: Extremities without clubbing, cyanosis. Left breast with some swelling. Wound vac in place Left chest wall with scant serosanginous output. No surrounding erythema. VASC: Right IJ central venous line in place with dressing clean/dry/intact. Right radial art line in place. NEUROLOGICAL: Sedated, arousable, orally intubated on mechanical ventilation, moves both upper extremities A/P Assessment and Plan NEURO: Propofol for sedation Target RASS -2 RESP: Adjust vent to PRVC TV 450 R 18 PEEP 8 IT O.8 Chest x-ray - satisfactory endotracheal tube position. Satisfactory central line position. L lung opacities and opacity in right base. CV: Septic shock Monitor hemodynamics. LR at 150 mL/h postoperatively. Currently off pressors. Follow-up lactic acid. GI: Morbid obesity OG-tube in place to low intermittent wall suction. Initiate tube feeds and advanced to goal as tolerated. FEN/RENAL: Hypokalemia Marvin in place. Monitor intake and output. Monitor I's and replace as indicated per ICU electrolyte replacement protocol. ID: Septic shock Necrotizing fasciitis left axilla/chest wall /breast. Status post debridement of the chest wall, axilla and back by Dr. lainez 11/16/16 with wound VAC placement. Plan to return to OR for further debridement 11/18/16. Empiric coverage with clindamycin, vancomycin, Zosyn. Infectious disease consult. Blood cultures pending. Intraoperative wound culture pending. CXR with multifocal opacities. Check sputum culture. Check BNP. HEME: Bilateral lower ultrasound negative for DVT 11/16/16. ENDO: Hyperglycemia without known history of diabetes Obtain hemoglobin A1c. Dose insulin sliding scale every 6 hours. PROPH: Protonix 40 mg IV daily for stress ulcer prophylaxis. Lovenox for DVT prophylaxis when okay with general surgery. ACCESS: Right IJ central venous line placed in OR 11/16/16. Right radial art line placed in OR 11/16/16 Full code Discussed with [employer]IST[employer]INE. Critical care time 40 minutes exclusive of separately billable procedures. Edgard Patel MD Nov 17, 2016 10:39
--- NOTE | 2016-11-17 12:03 | MB ---
cc: ELEAZAR SOL M.D. DATE OF CONSULTATION: 11/16/2016 REASON FOR CONSULTATION: Necrotizing soft tissue infection, left axilla, left chest and back. HISTORY OF PRESENT ILLNESS Ms. Martins is a 36-year-old -Malagasy female who came to the emergency department this afternoon complaining of a foul-smelling left chest infection. She states that about a week ago she was shaving her arm pit and got a small wound. It made a small boil that opened up. It appeared to get better but then yesterday she noticed the infection was spreading. She reported a very foul odor. She states the blisters were coming up under her axilla and going down onto her chest. She reports she had some night sweats and a subjective fever. She states the pain was 10/10 in the left axilla. She states that the wound started draining a foul-smelling clear fluid yesterday. She came to the emergency department this afternoon and was seen and evaluated by the nurse practitioner. I received a stat consultation for suspected necrotizing fasciitis of the left axilla, chest and back. I came to see the patient immediately. Upon entering the room, there was a horrific foul-smelling odor coming out that smelled like flesh. The patient had a very large wound probably 20 x 20 cm, in the left axilla with multiple areas of necrotic skin and fat with active drainage. I immediately went out and notified the operating room that the patient needed to go to the OR stat for surgical debridement. The patient was advised this was an emergent surgical procedure and a very significant risk including , and she was agreeable. PAST MEDICAL HISTORY 1. Morbid obesity 2. Chronic lymphedema right lower extremity. 3. Hypertension. The patient denies diabetes. PAST SURGICAL HISTORY She reports no previous surgical history. MEDICATIONS: 1. Metolazone 2. Metoprolol 3. K-Tab 4. Trazodone 5. Advil 6. Tylenol 7. Flexeril ALLERGIES: NO KNOWN DRUG ALLERGIES. SOCIAL HISTORY She lives in [place] but prefers to come over here for her medical care. She smokes. She drinks alcohol mainly on the weekend, occasionally uses marijuana. FAMILY HISTORY: Noncontributory. PHYSICAL EXAMINATION: The patient is morbidly obese. Weight is approximately 300 pounds. Her BMI is 41. Vital signs: Temperature is 98, pulse 140, blood pressure is 170/100. General: Morbidly obese female with extremely foul smelling odor coming from her left axilla. She is awake, alert and talking. She reports 10/10 pain in the left axilla. HEENT: Pupils equal, round, reactive to light. Sclerae are white. Oropharynx is clear and moist. Neck: Supple. No masses. Lungs: Clear to auscultation bilaterally. Heart: S1-S2, no murmur, tachycardiac. Abdomen: Morbidly obese, soft, nontender. Extremities: She has a 20 x 20 cm necrotic foul-smelling left axillary wound with active drainage. This is consistent with necrotizing fasciitis as there is skin and fat exposure and dishwater type clear drainage coming from multiple areas of necrotic skin and fat. She has good range of motion all four extremities. Neurologically: She is awake, alert and oriented x3. LABORATORY DATA White blood cell count is 16, hemoglobin 12, platelet count is 355. Electrolytes are within normal limits except for potassium of 3.1, glucose of 265. Albumin is 1.7, INR is 1.0. IMPRESSION Necrotizing soft tissue infection left axilla, left chest and left back. PLAN The patient needs to go to the operating room immediately. Operating room was notified this is a STAT surgical procedure and the patient needs to come immediately for immediate surgical debridement. The patient understands there will be significant soft tissue loss and this type of infection can lead to sepsis and . Unfortunately there are no family members available to discuss this with. The patient will be taken to the operating room immediately. MD PAPI Sweeney/ariaan /9:37 PM /11:51 AM
--- NOTE | 2016-11-17 12:04 | MP ---
cc: ELEAZAR SOL M.D. DATE OF SURGERY: 11/16/2016 PREOPERATIVE DIAGNOSIS Necrotizing soft tissue infection left breast, left axilla, left back, 20 x 20 cm. PROCEDURE: Excision and debridement necrotizing soft tissue infection, left axilla 40 x 25 cm. SURGEON Eleazar oSl MD. ANESTHESIA General endotracheal anesthesia COMPLICATIONS None. INDICATIONS FOR PROCEDURE: Ms. Martins is an unfortunate 36 year-old -Armenian female presented with a necrotizing soft tissue infection of the left axilla going out onto her left breast and down onto her left flank and back. She requires immediate surgical debridement. The patient understands this is an emergent surgical procedure and carries significant risks including . She expressed understanding. DETAILS OF PROCEDURE: The patient was brought to the operating room and placed in the right lateral decubitus position. Appropriate padding for hips, knees, shoulders and ankles. Left axilla, left arm, left breast, left chest and back were all prepped and draped in a standard surgical fashion. Using electrocautery cut dissection a generous margin of normal tissue was excised circumferentially around the wound. Dissection proceeded all the way down to the fascia and muscle of the left axilla and chest. Dissection proceeded onto the left breast involving the outer 1/3 of the left breast. Multiple pockets of pus and necrotic skin, fat and fascia were identified and excised with generous margins. On the left axilla care was taken not to injure the long thoracic and thoracodorsal nerves. The thoracodorsal artery was sacrificed as it was involved in the soft tissue infection. This was tied off with a 2-0 Vicryl suture. Once all necrotic skin, fat and muscular fascia had been identified and excised, attention was now directed to copious irrigation. Three liters of warm saline solution was used to power irrigate out the entire area. We then used approximately 500 cc of peroxide onto the tissue itself. Once we did this there was no other signs of gross active infection. We then irrigated out a second time with 3 liters warm saline solution. Please note that this irrigation and debridement took approximately 2 hours in order to achieve gross negative margins from the infection. Once we did this a large sponge Vac was placed. Overall wound dimensions were approximately 25 x 40 cm. Once the Vac was applied, the patient was returned to the supine position and brought to the PACU, intubated. Critical care was consulted and I recommended the patient be left intubated as she will likely need to return to the operating room on Monday for a second look and possible further debridement. Eleazar MD PAPI Sol/ariana /9:37 PM /11:53 AM .2
[2016-11-17] MEDS ORDERED: SODIUM CHLOR 0.9% 1000 ML INJ 1,000 ML IV ONE (12:45)
[2016-11-17] MEDS: VANCOMYCIN INJ 2,250 MG in SODIUM CHLORID 0.9% 500 ML INJ 500 ML IV SCH (13:28)
[2016-11-17] MEDS: NOREPINEPHRINE 4 MG/D5W 250 ML IV SCH (13:29)
[2016-11-17 13:44] LABS: HEMOGLOBIN A1b 2.2 %; HEMOGLOBIN Ao 79.8 %; HEMOGLOBIN F 0.4 %; HEMOGLOBIN P3 6.9 %
--- NOTE | 2016-11-17 15:35 | PD.ID.CON ---
History of Present Illness Service ID Consult Requested By Dr Wright Reason for Consult Nec fasc chest wall Primary Care Physician Jimmie Gutierrez Diagnoses: History of Present Illness 36 morbidly obese female admitted yday with foul draining L axilla lesion It was noted wide spread infection on her axillae and chest and she went for emergent debridement by Dr Lainez SHe has GPC in pairs and clusters and mixed floral on Gstain SHe has significant leukocytosis, lactic acidosis on presentation Pt remains sedated intubated, on mech vent very low dose of llevaphed UOP marginal Plans fro OR tomorrow Review of Systems ROS Limitations: Clinical Condition, Intubated Past Family Social History Allergies: Coded Allergies: No Known Allergies (Unverified , 11/16/16) Past Medical History Hypertension Ovarian cyst Chronic pain Morbid obesity Past Surgical History none prior to this admission Active Ordered Medications Medications where reviewed in EMR Antibiotics Include: vancomycin, zosyn Family History Reported Medications Trazodone 50 mg by mouth daily at bedtime Diphenhydramine/acetaminophen 25/502 tabs by mouth daily at bedtime when necessary sleep Metoprolol 25 mill grams by mouth twice a day for tachycardia Mother has diabetes Social History smoker. Ddrinks alcohol on the weekends. She reported history of marijuana use. Physical Exam Vital Signs Vital Signs Date Time Temp Pulse Resp B/P Pulse Ox O2 Delivery O2 Flow Rate FiO2 11/17/16 13:51 100 45 11/17/16 11:00 121 11/17/16 10:00 122 11/17/16 09:00 124 11/17/16 08:36 100 45 11/17/16 08:00 98.8 117 18 112/73 100 11/17/16 08:00 117 11/17/16 07:00 114 11/17/16 06:39 100 45 11/17/16 06:00 Mechanical Ventilator 45 11/17/16 05:42 21 11/17/16 04:11 100 70 11/17/16 04:00 70 11/17/16 04:00 97.8 108 21 116/72 100 11/17/16 01:05 100 70 11/17/16 00:00 97.5 106 18 110/80 100 110/64 11/17/16 00:00 Mechanical Ventilator 11/16/16 23:53 100 70 11/16/16 23:30 98.8 108 12 102/58 98 Mechanical Ventilator 70 11/16/16 23:15 119 14 133/76 98 Mechanical Ventilator 70 11/16/16 23:00 123 12 160/91 97 Mechanical Ventilator 70 11/16/16 22:45 121 12 153/97 98 Mechanical Ventilator 70 11/16/16 22:30 120 12 151/84 98 Mechanical Ventilator 70 11/16/16 22:15 120 12 174/96 96 Mechanical Ventilator 70 11/16/16 22:00 114 12 161/90 93 Mechanical Ventilator 70 11/16/16 22:00 96 70 11/16/16 22:00 96 70 11/16/16 21:55 40 11/16/16 21:55 97.9 117 12 160/90 98 Mechanical Ventilator 40 11/16/16 19:02 124 19 135/94 98 11/16/16 18:07 97 Room Air 11/16/16 17:54 128 19 138/97 98 Room Air 11/16/16 16:55 171/103 11/16/16 16:16 98.5 137 20 186/107 96 Room Air Physical Exam CONSTITUTIONAL/GENERAL: This is a morbidly obese female patient, in no apparent distress. TUBES/LINES/DRAINS: SKIN: No jaundice, rashes, or lesions. Large skin defect in L axilla/lateral chest area covered with VAC dressing; + fouls smelling serosangious dc Skin temperature appropriate. Not diaphoretic. HEAD: Atraumatic. Normocephalic. EYES: Pupils equal and round and reactive. Extraocular motions intact. No scleral icterus. No injection or drainage. Fundi not examined. ENT: Hearing grossly normal. Nose without bleeding or purulent drainage. Throat without visible erythema, exudates, masses, or lesions. NECK: Trachea midline. Supple, nontender. No palpable thyroid enlargement or nodularity. CARDIOVASCULAR: Regular rate and rhythm without murmurs, gallops, or rubs. No JVD. Peripheral pulses symmetric. RESPIRATORY/CHEST: Symmetric, unlabored respirations. Clear to auscultation. Breath sounds equal bilaterally. No wheezes, rales, or rhonchi. GASTROINTESTINAL: Abdomen soft, non-tender, nondistended. No hepato-splenomegaly , or palpable masses. No guarding. Bowel sounds present. GENITOURINARY: Without palpable bladder distension. Marvin catheter in place with clear urine MUSCULOSKELETAL: Extremities without clubbing, cyanosis, or edema. No joint tenderness or effusion noted. No calf tenderness. No mottling or clubbing. LYMPHATICS: No palpable cervical or supraclavicular adenopathy. NEUROLOGICAL: Sedated ; opens eyes to stimulation PSYCHIATRIC: unable to assess Laboratory Laboratory Tests Test 11/16/16 11/16/16 11/17/16 11/17/16 18:45 20:06 00:50 02:20 Prothrombin Time 11.0 Prothromb Time International 1.0 Ratio Activated Partial 27.2 Thromboplast Time Lactic Acid Level 3.8 White Blood Count 16.9 Red Blood Count 4.57 Hemoglobin 12.0 Hematocrit 39.2 Mean Corpuscular Volume 85.7 Mean Corpuscular Hemoglobin 26.2 Mean Corpuscular Hemoglobin 30.6 Concent Red Cell Distribution Width 17.5 Platelet Count 335 Mean Platelet Volume 8.2 Neutrophils (%) (Auto) 83.8 Lymphocytes (%) (Auto) 7.2 Monocytes (%) (Auto) 8.0 Eosinophils (%) (Auto) 0.6 Basophils (%) (Auto) 0.4 Neutrophils # (Auto) 14.2 Lymphocytes # (Auto) 1.2 Monocytes # (Auto) 1.4 Eosinophils # (Auto) 0.1 Basophils # (Auto) 0.1 CBC Comment AUTO DIFF Differential Comment AUTO DIFF CONFIRMED Sodium Level 138 Potassium Level 3.1 Chloride Level 105 Carbon Dioxide Level 20.5 Anion Gap 13 Blood Urea Nitrogen 11 Creatinine 0.96 Estimat Glomerular Filtration 80 Rate Random Glucose 265 Calcium Level 8.5 Magnesium Level 1.8 Total Bilirubin 0.2 Aspartate Amino Transf 33 (AST/SGOT) Alanine Aminotransferase 36 (ALT/SGPT) Alkaline Phosphatase 174 Total Creatine Kinase 80 Troponin I LESS THAN 0.02 Total Protein 7.2 Albumin 1.7 Blood Gas Puncture Site OR GAS Blood Gas Patient Temperature 98.6 Blood Gas HCO3 21 Blood Gas Base Excess -3.5 Blood Gas Oxygen Saturation 96 Arterial Blood pH 7.39 Arterial Blood Partial 35 Pressure CO2 Arterial Blood Partial 183 Pressure O2 Arterial Blood Oxygen Content 17.9 Arterial Blood 1.2 Carboxyhemoglobin Arterial Blood Methemoglobin 1.3 Blood Gas Hemoglobin 12.9 Oxygen Delivery Device OR GAS Nasal Screen MRSA (PCR) NEGATIVE Urine Color YELLOW Urine Turbidity HAZY Urine pH 6.0 Urine Specific Page 1.021 Urine Protein 30 Urine Glucose (UA) NEG Urine Ketones NEG Urine Occult Blood MOD Urine Nitrite POS Urine Bilirubin NEG Urine Urobilinogen LESS THAN 2.0 Urine Leukocyte Esterase LARGE Urine RBC 28 Urine WBC 68 Urine WBC Clumps FEW Urine Squamous Epithelial <1 Cells Urine Renal Epithelial Cells <1 Urine Bacteria RARE Urine Hyaline Casts 1 Urine Mucus FEW Microscopic Urinalysis Comment CATH-CULTURE IND Test 11/17/16 11/17/16 05:10 06:20 White Blood Count 19.3 Red Blood Count 3.17 Hemoglobin 8.6 Hematocrit 26.2 Mean Corpuscular Volume 82.6 Mean Corpuscular Hemoglobin 27.3 Mean Corpuscular Hemoglobin 33.0 Concent Red Cell Distribution Width 17.3 Platelet Count 345 Mean Platelet Volume 8.1 Neutrophils (%) (Auto) 82.5 Lymphocytes (%) (Auto) 9.2 Monocytes (%) (Auto) 6.8 Eosinophils (%) (Auto) 1.2 Basophils (%) (Auto) 0.3 Neutrophils # (Auto) 15.9 Lymphocytes # (Auto) 1.8 Monocytes # (Auto) 1.3 Eosinophils # (Auto) 0.2 Basophils # (Auto) 0.1 CBC Comment AUTO DIFF Differential Total Cells 100 Counted Neutrophils % (Manual) 52 Band Neutrophils % 38 Lymphocytes % 2 Monocytes % 6 Eosinophils % 1 Neutrophils # (Manual) 17.6 Metamyelocytes 1 Differential Comment FINAL DIFF MANUAL Platelet Estimate NORMAL Platelet Morphology Comment NORMAL Sodium Level 140 Potassium Level 3.4 Chloride Level 106 Carbon Dioxide Level 23.7 Anion Gap 10 Blood Urea Nitrogen 11 Creatinine 0.91 Estimat Glomerular Filtration 85 Rate Random Glucose 198 Lactic Acid Level 1.7 Calcium Level 7.2 Protein Corrected Calcium 8.2 B-Type Natriuretic Peptide 64 Total Protein 5.3 Blood Gas Puncture Site ART LINE Blood Gas Patient Temperature 98.6 Blood Gas HCO3 21 Blood Gas Base Excess -2.4 Blood Gas Oxygen Saturation 98 Arterial Blood pH 7.44 Arterial Blood Partial 32 Pressure CO2 Arterial Blood Partial 260 Pressure O2 Arterial Blood Oxygen Content 12.2 Arterial Blood 0.6 Carboxyhemoglobin Arterial Blood Methemoglobin 1.0 Blood Gas Hemoglobin 8.4 Oxygen Delivery Device VENTILATOR Blood Gas Ventilator Setting PRVC/AC Blood Gas Inspired Oxygen 70 Date/Time Procedure Status Source Growth 11/17/16 11:00 Gram Stain Received Sputum Endotracheal Pending 11/17/16 11:00 Sputum Culture Received Sputum Endotracheal Pending 11/17/16 02:20 Urine Culture Received Urine Catheterized Urine Pending 11/16/16 20:53 Gram Stain - Final Resulted Wound Other 11/16/16 20:53 Wound Culture Resulted Wound Other Pending 11/16/16 20:53 Fungal Smear Received Wound Other Pending 11/16/16 20:53 Fungal Culture Received Wound Other Pending 11/16/16 20:53 Acid Fast Stain Received Wound Other Pending 11/16/16 20:53 Mycobacterial Culture Received Wound Other Pending 11/16/16 20:06 Fungal Smear - Final Resulted Wound Other NO FUNGAL ELEMENTS SEEN. 11/16/16 20:06 Fungal Culture Resulted Wound Other Pending 11/16/16 18:45 Aerobic Blood Culture - Preliminary Resulted Blood Peripheral NO GROWTH IN 1 DAY 11/16/16 18:45 Anaerobic Blood Culture - Preliminary Resulted Blood Peripheral NO GROWTH IN 1 DAY Result Diagram: 11/17/16 0510 11/17/16 0510 Imaging Last Impressions Lower Extremity Ultrasound 11/16/16 0000 Signed Impressions: Service Date/Time: Wednesday, November 16, 2016 22:30 - CONCLUSION: Normal examination. William James MD Chest X-Ray 11/16/16 0000 Signed Impressions: Service Date/Time: Wednesday, November 16, 2016 22:19 - CONCLUSION: 1. Right central line tip in superior vena cava without pneumothorax. Patchy airspace disease in the left lung and right lung base medially. William James MD Assessment and Plan Assessment and Plan Nec fasciitis L axillae/chest area, polimicrobial mixed aerobic/anaeroic along with staph sp emergent I+D on appropriate empiric abx Critically ill Acute VDRF cont zosyn, vanco fu clx anticipate eventual transition to po abx Rachel Marsh MD Nov 17, 2016 15:34
--- NOTE | 2016-11-17 16:22 | HHI.PR ---
Subjective Subjective Notes Intubated/Sedated Objective Vitals/I&O Vital Signs Date Time Temp Pulse Resp B/P Pulse Ox O2 Delivery O2 Flow Rate FiO2 11/17/16 13:51 100 45 11/17/16 12:00 98.5 112 18 99/61 11/17/16 06:00 Mechanical Ventilator Labs Laboratory Tests Test 11/16/16 11/16/16 11/17/16 11/17/16 18:45 20:06 00:50 02:20 Prothrombin Time 11.0 Prothromb Time International 1.0 Ratio Activated Partial 27.2 Thromboplast Time Lactic Acid Level 3.8 White Blood Count 16.9 Red Blood Count 4.57 Hemoglobin 12.0 Hematocrit 39.2 Mean Corpuscular Volume 85.7 Mean Corpuscular Hemoglobin 26.2 Mean Corpuscular Hemoglobin 30.6 Concent Red Cell Distribution Width 17.5 Platelet Count 335 Mean Platelet Volume 8.2 Neutrophils (%) (Auto) 83.8 Lymphocytes (%) (Auto) 7.2 Monocytes (%) (Auto) 8.0 Eosinophils (%) (Auto) 0.6 Basophils (%) (Auto) 0.4 Neutrophils # (Auto) 14.2 Lymphocytes # (Auto) 1.2 Monocytes # (Auto) 1.4 Eosinophils # (Auto) 0.1 Basophils # (Auto) 0.1 CBC Comment AUTO DIFF Differential Comment AUTO DIFF CONFIRMED Sodium Level 138 Potassium Level 3.1 Chloride Level 105 Carbon Dioxide Level 20.5 Anion Gap 13 Blood Urea Nitrogen 11 Creatinine 0.96 Estimat Glomerular Filtration 80 Rate Random Glucose 265 Calcium Level 8.5 Magnesium Level 1.8 Total Bilirubin 0.2 Aspartate Amino Transf 33 (AST/SGOT) Alanine Aminotransferase 36 (ALT/SGPT) Alkaline Phosphatase 174 Total Creatine Kinase 80 Troponin I LESS THAN 0.02 Total Protein 7.2 Albumin 1.7 Blood Gas Puncture Site OR GAS Blood Gas Patient Temperature 98.6 Blood Gas HCO3 21 Blood Gas Base Excess -3.5 Blood Gas Oxygen Saturation 96 Arterial Blood pH 7.39 Arterial Blood Partial 35 Pressure CO2 Arterial Blood Partial 183 Pressure O2 Arterial Blood Oxygen Content 17.9 Arterial Blood 1.2 Carboxyhemoglobin Arterial Blood Methemoglobin 1.3 Blood Gas Hemoglobin 12.9 Oxygen Delivery Device OR GAS Nasal Screen MRSA (PCR) NEGATIVE Urine Color YELLOW Urine Turbidity HAZY Urine pH 6.0 Urine Specific [place] 1.021 Urine Protein 30 Urine Glucose (UA) NEG Urine Ketones NEG Urine Occult Blood MOD Urine Nitrite POS Urine Bilirubin NEG Urine Urobilinogen LESS THAN 2.0 Urine Leukocyte Esterase LARGE Urine RBC 28 Urine WBC 68 Urine WBC Clumps FEW Urine Squamous Epithelial <1 Cells Urine Renal Epithelial Cells <1 Urine Bacteria RARE Urine Hyaline Casts 1 Urine Mucus FEW Microscopic Urinalysis Comment CATH-CULTURE IND Test 11/17/16 11/17/16 05:10 06:20 White Blood Count 19.3 Red Blood Count 3.17 Hemoglobin 8.6 Hematocrit 26.2 Mean Corpuscular Volume 82.6 Mean Corpuscular Hemoglobin 27.3 Mean Corpuscular Hemoglobin 33.0 Concent Red Cell Distribution Width 17.3 Platelet Count 345 Mean Platelet Volume 8.1 Neutrophils (%) (Auto) 82.5 Lymphocytes (%) (Auto) 9.2 Monocytes (%) (Auto) 6.8 Eosinophils (%) (Auto) 1.2 Basophils (%) (Auto) 0.3 Neutrophils # (Auto) 15.9 Lymphocytes # (Auto) 1.8 Monocytes # (Auto) 1.3 Eosinophils # (Auto) 0.2 Basophils # (Auto) 0.1 CBC Comment AUTO DIFF Differential Total Cells 100 Counted Neutrophils % (Manual) 52 Band Neutrophils % 38 Lymphocytes % 2 Monocytes % 6 Eosinophils % 1 Neutrophils # (Manual) 17.6 Metamyelocytes 1 Differential Comment FINAL DIFF MANUAL Platelet Estimate NORMAL Platelet Morphology Comment NORMAL Sodium Level 140 Potassium Level 3.4 Chloride Level 106 Carbon Dioxide Level 23.7 Anion Gap 10 Blood Urea Nitrogen 11 Creatinine 0.91 Estimat Glomerular Filtration 85 Rate Random Glucose 198 Lactic Acid Level 1.7 Calcium Level 7.2 Protein Corrected Calcium 8.2 B-Type Natriuretic Peptide 64 Total Protein 5.3 Blood Gas Puncture Site ART LINE Blood Gas Patient Temperature 98.6 Blood Gas HCO3 21 Blood Gas Base Excess -2.4 Blood Gas Oxygen Saturation 98 Arterial Blood pH 7.44 Arterial Blood Partial 32 Pressure CO2 Arterial Blood Partial 260 Pressure O2 Arterial Blood Oxygen Content 12.2 Arterial Blood 0.6 Carboxyhemoglobin Arterial Blood Methemoglobin 1.0 Blood Gas Hemoglobin 8.4 Oxygen Delivery Device VENTILATOR Blood Gas Ventilator Setting PRVC/AC Blood Gas Inspired Oxygen 70 Date/Time Procedure Status Source Growth 11/17/16 11:00 Gram Stain Received Sputum Endotracheal Pending 11/17/16 11:00 Sputum Culture Received Sputum Endotracheal Pending 11/17/16 02:20 Urine Culture Received Urine Catheterized Urine Pending 11/16/16 20:53 Gram Stain - Final Resulted Wound Other 11/16/16 20:53 Wound Culture Resulted Wound Other Pending 11/16/16 20:53 Fungal Smear Received Wound Other Pending 11/16/16 20:53 Fungal Culture Received Wound Other Pending 11/16/16 20:53 Acid Fast Stain Received Wound Other Pending 11/16/16 20:53 Mycobacterial Culture Received Wound Other Pending 11/16/16 20:06 Fungal Smear - Final Resulted Wound Other NO FUNGAL ELEMENTS SEEN. 11/16/16 20:06 Fungal Culture Resulted Wound Other Pending 11/16/16 18:45 Aerobic Blood Culture - Preliminary Resulted Blood Peripheral NO GROWTH IN 1 DAY 11/16/16 18:45 Anaerobic Blood Culture - Preliminary Resulted Blood Peripheral NO GROWTH IN 1 DAY Cardiovascular: Regular Lungs: Clear Abdomen: Non-distended, Non-tender Narrative Exam LEFT axilla; chest/breast with wound vac in place ---good seal A/P Assessment and Plan 36 year old female POD1 wide local excision of soft tissue infection in LEFT axilla, chest breast -OR tomorrow for I&D and wound vac change -NPO after MN -Obtain consents -CCM following -ID following I certify and attest that I personally examined this patient and reviewed her findings in the EMR. Ms Ocasio is documenting our encounter on my behalf and entered orders under my direct supervision. I discussed our recommendations with the patient and family at the bedside. I also discussed our encounter with the nursing staff present. ELEAZAR SOL MD [facility] Priyanka Ocasio Nov 17, 2016 16:22 Eleazar Sol MD Nov 18, 2016 10:44
--- NOTE | 2016-11-17 23:54 | EKG ---
Date Performed: 11/16/2016 Time Performed: 18:21:06 PTAGE: 36 years EKG: SINUS TACHYCARDIA ABNORMAL RHYTHM ECG PREVIOUS TRACING : 07/27/2015 13.46 Compared to prior tracing no significant change DOCTOR: Constantino Eduardo Interpretating Date/Time 11/17/2016 23:52:51
[2016-11-18] VITALS (18 sets, daily range): BP systolic 102–154; BP diastolic 60–95; PULSE 90–105; RESP 17–23; TEMP 97.5–98.6; O2SAT 99–100
[2016-11-18] MEDS: oxyCODONE/ACETAMINOPHEN 5 MG/325 MG TAB PO SCH ×5 (00:32→23:30)
[2016-11-18] MEDS: PROPOFOL 1000 MG/100 ML INJ 100 ML IV SCH ×7 (00:32→23:30)
[2016-11-18] MEDS: PIPERACIL-TAZO 4.5 GM PREMIX 100 ML IV SCH ×4 (00:32→18:10)
[2016-11-18] MEDS: INSULIN ASPART SUPPLEMENTAL SCALE SQ SCH ×4 (03:15→21:15)
[2016-11-18] MEDS: CLINDAMYCIN INJ 900 MG in SODIUM CHLORIDE 0.9% INJ 100 ML IV SCH ×3 (03:46→21:13)
[2016-11-18] MEDS: VANCOMYCIN INJ 2,250 MG in SODIUM CHLORID 0.9% 500 ML INJ 500 ML IV SCH ×2 (03:46→14:00)
[2016-11-18] MEDS: CHLORHEXIDINE GLUCONATE 2 % 1 PACK (2 CLOTHS) TOP SCH (04:00)
[2016-11-18 04:31] LABS: AUTOMATED NEUTROPHIL # 19.6 TH/MM3 (1.8-7.7); BASOPHIL # 0.1 TH/MM3 (0-0.2); BASOPHIL % 0.3 % (0.0-2.0); EOSINOPHIL # 0.2 TH/MM3 (0-0.4); EOSINOPHIL % 0.9 % (0.0-4.0); HEMATOCRIT 21.1 % (35.0-46.0); LYMPH % 6.9 % (9.0-44.0); LYMPHOCYTE # 1.6 TH/MM3 (1.0-4.8); MEAN CELL VOLUME 83.1 FL (80.0-100.0); MEAN CORPUSCULAR HEMOGLOBIN 27.5 PG (27.0-34.0); MEAN CORPUSCULAR HGB CONC 33.1 % (32.0-36.0); MONO % 6.6 % (0.0-8.0); NEUT % 85.3 % (16.0-70.0); PLATELET COUNT 347 TH/MM3 (150-450); RED BLOOD COUNT 2.53 MIL/MM3 (4.00-5.30)
[2016-11-18 04:32] LABS: HEMO FLAGS AUTO DIFF
[2016-11-18] MEDS: RESP: ALBUTEROL 2.5 MG/IPRATROPIUM 0.5 MG NEB (SCH) INH ×4 (04:48→20:45)
[2016-11-18 05:11] LABS: BICARBONATE 24.2 MEQ/L (21.0-32.0); CALCIUM-PROTEIN CORRECTED 8.2 MG/DL (8.5-10.1); POTASSIUM 3.8 MEQ/L (3.5-5.1); TOTAL BILIRUBIN ADULT 0.2 MG/DL (0.2-1.0)
[2016-11-18 06:23] LABS: BANDS 27 % (0-6); EOSINOPHILS 1 % (0-4); METAMYELOCYTES 1 % (0-1); MYELOCYTES 1 % (0-0); NEUTROPHIL # MANUAL DIFF 19.8 TH/MM3 (1.8-7.7); PLATELET ESTIMATE SMEAR NORMAL (NORMAL); PLATELET MORPHOLOGY NORMAL (NORMAL); POLYS (SEG NEUTROPHILS) 57 % (16-70); SCAN/DIFF FINAL DIFF MANUAL; WBC DIFF SAMPLE 100
[2016-11-18 06:24] LABS: TOXIC GRANULATION 1+ (NORMAL)
[2016-11-18] MEDS: HYDROmorphone HCL PF 1 MG/ML VIAL IV PUSH PRN ×2 (06:47→13:12)
[2016-11-18] MEDS: CHLORHEXIDINE 0.12% (ORAL KIT) 15 ML CUP MT SCH ×2 (08:00→21:13)
[2016-11-18] MEDS: LACTATED RINGER'S 1000 ML INJ 1,000 ML IV SCH ×4 (08:05→23:52)
[2016-11-18] MEDS: PANTOPRAZOLE SODIUM 40 MG VIAL IV SCH (08:50)
[2016-11-18] MEDS: SODIUM CHLORIDE 0.9% FLUSH 5 ML FLUSH IV FLUSH SCH ×2 (09:00→21:13)
[2016-11-18] MEDS: DOCUSATE SODIUM 100 MG CAP TUBE SCH ×2 (09:00→21:13)
[2016-11-18] MEDS: NOREPINEPHRINE 4 MG/D5W 250 ML IV SCH (10:11)
--- NOTE | 2016-11-18 10:41 | HHI.CCPN ---
Subjective Remarks/Hospital Course 11/16: 36 yo morbidly obese female with past medical history of hypertension, bilateral lower extremity lymphedema who has undergone operative debridement for necrotizing fasciitis of left axilla, chest, back. Reportedly, about two weeks ago she developed a boil in left axilla after shaving. This eventually drained spontaneously and showed some initial improvement. She then developed blisters of the axilla and chest wall. About 2 days ago she developed some drainage from left chest. She had subjective fevers. She presented to [facility] ED where Dr. Lainez was consulted emergently for evaluation for necrotizing fasciitis. She provided informed surgical consent and was taken emergently to OR where she underwent debridement of left axilla, breast, left chest wall, back with wound VAC placement. Anesthesia records indicate that she was intubated with 2 Grant without reported difficulty. She received 2500 crystalloid. Estimated blood loss was 350. She received Zosyn, clindamycin, vancomycin. She was briefly on pressors in the OR but these have been weaned off. She is to remain intubated for postoperative resuscitation and for tentative plan to return to OR Monday morning 11/18/16 for debridement and wound vac change. 3: Remains sedated, orally intubated on mechanical ventilation. 11/18: Remains sedated, arousable, orally intubated on mechanical ventilation. Being transfused PRBCs this morning for hemoglobin of 7. On Levophed 3 mics per minute. OR schedule today for further debridement/wound VAC change. Objective Vital Signs Date Time Temp Pulse Resp B/P Pulse Ox O2 Delivery O2 Flow Rate FiO2 11/18/16 09:15 98.5 90 22 123/84 100 11/18/16 09:03 40 11/17/16 06:00 Mechanical Ventilator Intake and Output 11/17/16 11/17/16 11/18/16 08:00 16:00 00:00 Intake Total 1191 ml 2726 ml 2200 ml Output Total 850 ml 320 ml 500 ml Balance 341 ml 2406 ml 1700 ml Result Diagram: 11/18/16 0400 11/18/16 0400 Imaging Last Impressions Lower Extremity Ultrasound 11/16/16 0000 Signed Impressions: Service Date/Time: Wednesday, November 16, 2016 22:30 - CONCLUSION: Normal examination. William James MD Chest X-Ray 11/16/16 0000 Signed Impressions: Service Date/Time: Wednesday, November 16, 2016 22:19 - CONCLUSION: 1. Right central line tip in superior vena cava without pneumothorax. Patchy airspace disease in the left lung and right lung base medially. William James MD Objective Remarks Drips: Propofol GENERAL: Morbidly obese female who is orotracheally intubated. SKIN: Warm and dry. HEAD: Atraumatic. Normocephalic. EYES: Pupils equal and round. No scleral icterus. No injection or drainage. ENT: No nasal bleeding or discharge. Mucous membranes pink and moist. NECK: Trachea midline. No JVD. CARDIOVASCULAR: Regular rate and rhythm. No murmurs rubs or gallops. RESPIRATORY: Orally intubated on mechanical ventilation, Clear to auscultation. Breath sounds equal bilaterally. No wheezing or crackles GASTROINTESTINAL: Abdomen soft, non-tender, nondistended. Hepatic and splenic margins not palpable. : Marvin in place MUSCULOSKELETAL: Extremities without clubbing, cyanosis. Left breast with some swelling. Wound vac in place Left chest wall with scant serosanginous output. No surrounding erythema. VASC: Right IJ central venous line in place with dressing clean/dry/intact. Right radial art line in place. NEUROLOGICAL: Sedated, arousable, orally intubated on mechanical ventilation, moves both upper extremities Urinary Catheter: Yes Assessment to: Continue A/P Assessment and Plan NEURO: Propofol for sedation Target RASS -2 RESP: Adjust vent to PRVC TV 450 R 18 PEEP 8 IT O.8 Chest x-ray - satisfactory endotracheal tube position. Satisfactory central line position. L lung opacities and opacity in right base. CV: Septic shock Monitor hemodynamics. LR at 150 mL/h postoperatively. Levophed for pressor support. GI: Morbid obesity OG-tube in place to low intermittent wall suction. Initiate tube feeds and advanced to goal as tolerated. FEN/RENAL: Hypokalemia Marvin in place. Monitor intake and output. Monitor I's and replace as indicated per ICU electrolyte replacement protocol. ID: Septic shock Necrotizing fasciitis left axilla/chest wall /breast. Status post debridement of the chest wall, axilla and back by Dr. lainez 11/16/16 with wound VAC placement. Plan to return to OR for further debridement 11/18/16. Empiric coverage with clindamycin, vancomycin, Zosyn. Infectious disease consult. Blood cultures pending. Intraoperative wound culture pending. CXR with multifocal opacities. Check sputum culture. Check BNP. HEME: Bilateral lower ultrasound negative for DVT 11/16/16. Being transfused PRBCs for hemoglobin of 7 prior to OR. ENDO: Hyperglycemia without known history of diabetes Obtain hemoglobin A1c. Dose insulin sliding scale every 6 hours. PROPH: Protonix 40 mg IV daily for stress ulcer prophylaxis. Lovenox for DVT prophylaxis when okay with general surgery. ACCESS: Right IJ central venous line placed in OR 11/16/16. Right radial art line placed in OR 11/16/16 Full code Discussed with TELESALES SUPERVISOR. Critical care time 30 minutes exclusive of separately billable procedures. Edgard Patel MD Nov 18, 2016 10:41
[2016-11-18] MEDS ORDERED: PROPOFOL 200 MG/20 ML AMP IV ONE (12:00)
[2016-11-18] MEDS ORDERED: LACTATED RINGER'S 1000 ML INJ 1,000 ML IV ONE (12:00)
[2016-11-18] MEDS ORDERED: NORMOSOL R INJ 1,000 ML IV ONE (12:00)
[2016-11-18] MEDS ORDERED: ONDANSETRON HCL 4 MG/2 ML VIAL IV PUSH ONE (12:00)
[2016-11-18] MEDS ORDERED: NORMOSOL R INJ 2,000 ML IV ONE (12:00)
[2016-11-18] MEDS ORDERED: PHENYLEPH/NS 1000 MCG/10 ML SYR IV ONE (12:00)
[2016-11-18] MEDS ORDERED: fentaNYL CITRATE 250 MCG/5 ML AMP ONE (12:28)
[2016-11-18] MEDS ORDERED: MIDAZOLAM HCL 2 MG/2 ML VIAL ONE (12:28)
[2016-11-18] MEDS ORDERED: PHARMACY ORDERED LAB XX ONE (13:45)
[2016-11-19] VITALS (16 sets, daily range): BP systolic 96–127; BP diastolic 54–78; PULSE 89–104; RESP 17–33; TEMP 98–99.4; O2SAT 93–100
[2016-11-19] MEDS: PIPERACIL-TAZO 4.5 GM PREMIX 100 ML IV SCH ×4 (01:18→18:04)
[2016-11-19] MEDS: PROPOFOL 1000 MG/100 ML INJ 100 ML IV SCH ×6 (01:18→18:04)
[2016-11-19] MEDS: INSULIN ASPART SUPPLEMENTAL SCALE SQ SCH ×4 (03:15→21:15)
[2016-11-19] MEDS: CLINDAMYCIN INJ 900 MG in SODIUM CHLORIDE 0.9% INJ 100 ML IV SCH ×3 (03:25→19:56)
[2016-11-19] MEDS: RESP: ALBUTEROL 2.5 MG/IPRATROPIUM 0.5 MG NEB (SCH) INH ×4 (03:47→20:04)
[2016-11-19] MEDS: CHLORHEXIDINE GLUCONATE 2 % 1 PACK (2 CLOTHS) TOP SCH (03:59)
[2016-11-19] MEDS: oxyCODONE/ACETAMINOPHEN 5 MG/325 MG TAB PO SCH ×4 (04:35→23:15)
[2016-11-19 04:40] LABS: ALT (GPT) 20 U/L (10-53); ANION GAP 12 MEQ/L (5-15); AST (GOT) 19 U/L (15-37); BICARBONATE 23.2 MEQ/L (21.0-32.0); BLOOD UREA NITROGEN 19 MG/DL (7-18); CHLORIDE 108 MEQ/L (98-107); GLOMERULAR FILTRATION RATE 28 ML/MIN (>89); POTASSIUM 3.8 MEQ/L (3.5-5.1); SODIUM (NA) 143 MEQ/L (136-145)
[2016-11-19 04:42] LABS: ALKALINE PHOSPHATASE 92 U/L (45-117); AUTOMATED NEUTROPHIL # 20.9 TH/MM3 (1.8-7.7); BASOPHIL # 0.1 TH/MM3 (0-0.2); BASOPHIL % 0.2 % (0.0-2.0); EOSINOPHIL # 0.2 TH/MM3 (0-0.4); EOSINOPHIL % 0.9 % (0.0-4.0); LYMPH % 7.2 % (9.0-44.0); LYMPHOCYTE # 1.7 TH/MM3 (1.0-4.8); MEAN CELL VOLUME 82.4 FL (80.0-100.0); MEAN CORPUSCULAR HEMOGLOBIN 27.7 PG (27.0-34.0); MEAN CORPUSCULAR HGB CONC 33.6 % (32.0-36.0); MONO % 4.2 % (0.0-8.0); NEUT % 87.5 % (16.0-70.0); PLATELET COUNT 326 TH/MM3 (150-450); RED BLOOD COUNT 2.79 MIL/MM3 (4.00-5.30); TOTAL BILIRUBIN ADULT 0.3 MG/DL (0.2-1.0); WHITE BLOOD COUNT 23.9 TH/MM3 (4.0-11.0)
[2016-11-19 04:56] LABS: HEMO FLAGS AUTO DIFF
[2016-11-19] MEDS: LACTATED RINGER'S 1000 ML INJ 1,000 ML IV SCH (06:37)
[2016-11-19 06:45] LABS: BANDS 1 % (0-6); EOSINOPHILS 1 % (0-4); METAMYELOCYTES 6 % (0-1); NEUTROPHIL # MANUAL DIFF 22.2 TH/MM3 (1.8-7.7); POLYS (SEG NEUTROPHILS) 86 % (16-70); WBC DIFF SAMPLE 100
[2016-11-19 06:46] LABS: OVALOCYTES 1+ (NORMAL); PLATELET ESTIMATE SMEAR NORMAL (NORMAL); PLATELET MORPHOLOGY NORMAL (NORMAL); SCAN/DIFF FINAL DIFF MANUAL
--- NOTE | 2016-11-19 07:18 | RADRPT ---
EXAM DATE/TIME: 11/19/2016 05:14 [place] COMPARISON: CHEST SINGLE AP, November 16, 2016, 22:19. INDICATIONS : Shortness of breath. MEDICAL HISTORY : Hypertension. SURGICAL HISTORY : None. ENCOUNTER: Subsequent ACUITY: 4 - 6 days PAIN SCORE: Non-responsive. LOCATION: Bilateral chest FINDINGS: Endotracheal tube, nasogastric tube and right neck central line are stable. There has been slight int erval improvement in aeration in the left upper lung zone are increasing confluence of left base infi ltrate. Slight improvement in right lung aeration. Visualized cardiac contours are grossly unchanged. CONCLUSION: Slight overall improvement in aeration Aristides Arias MD on November 19, 2016 at 7:15 Board Certified Radiologist. This report was verified electronically.
[2016-11-19] MEDS: CHLORHEXIDINE 0.12% (ORAL KIT) 15 ML CUP MT SCH ×2 (08:00→19:57)
[2016-11-19] MEDS: SODIUM CHLORIDE 0.9% FLUSH 5 ML FLUSH IV FLUSH SCH ×2 (09:00→22:14)
[2016-11-19] MEDS: DOCUSATE SODIUM 100 MG CAP TUBE SCH ×2 (09:16→22:14)
[2016-11-19] MEDS: PANTOPRAZOLE SODIUM 40 MG VIAL IV SCH (09:17)
--- NOTE | 2016-11-19 10:16 | HHI.CCPN ---
Subjective Remarks/Hospital Course 11/16: 36 yo morbidly obese female with past medical history of hypertension, bilateral lower extremity lymphedema who has undergone operative debridement for necrotizing fasciitis of left axilla, chest, back. Reportedly, about two weeks ago she developed a boil in left axilla after shaving. This eventually drained spontaneously and showed some initial improvement. She then developed blisters of the axilla and chest wall. About 2 days ago she developed some drainage from left chest. She had subjective fevers. She presented to [facility] ED where Dr. Lainez was consulted emergently for evaluation for necrotizing fasciitis. She provided informed surgical consent and was taken emergently to OR where she underwent debridement of left axilla, breast, left chest wall, back with wound VAC placement. Anesthesia records indicate that she was intubated with 2 Grant without reported difficulty. She received 2500 crystalloid. Estimated blood loss was 350. She received Zosyn, clindamycin, vancomycin. She was briefly on pressors in the OR but these have been weaned off. She is to remain intubated for postoperative resuscitation and for tentative plan to return to OR Monday morning 11/18/16 for debridement and wound vac change. 11/17: Remains sedated, orally intubated on mechanical ventilation. 11/18: Remains sedated, arousable, orally intubated on mechanical ventilation. Being transfused PRBCs this morning for hemoglobin of 7. On Levophed 3 mics per minute. OR schedule today for further debridement/wound VAC change. 11/19: Remains sedated, arousable, orally intubated on mechanical ventilation. Underwent further debridement left axilla with wound VAC change on 11/18. Off Levophed currently. Received 2 units PRBCs on 11/18. Objective Vital Signs Date Time Temp Pulse Resp B/P Pulse Ox O2 Delivery O2 Flow Rate FiO2 11/19/16 09:16 100 40 11/19/16 08:00 98.3 94 22 109/67 11/17/16 06:00 Mechanical Ventilator Intake and Output 11/18/16 11/18/16 11/19/16 08:00 16:00 00:00 Intake Total 2042 ml 1592 ml 1611 ml Output Total 400 ml 1175 ml 750 ml Balance 1642 ml 417 ml 861 ml Result Diagram: 11/19/16 0400 11/19/16 0400 Other Results Microbiology Date/Time Procedure Status Source Growth 11/16/16 18:50 Gram Stain - Final Complete Wound Chest 11/16/16 18:50 Wound Culture - Final Complete Escherichia Coli 11/16/16 20:06 Gram Stain - Final Complete Wound Other 11/16/16 20:06 Wound Culture - Final Complete Staphylococcus Aureus 11/16/16 20:53 Gram Stain - Final Complete Wound Other 11/16/16 20:53 Wound Culture - Final Complete Staphylococcus Aureus Escherichia Coli Imaging Last Impressions Lower Extremity Ultrasound 11/16/16 0000 Signed Impressions: Service Date/Time: Wednesday, November 16, 2016 22:30 - CONCLUSION: Normal examination. William James MD Chest X-Ray 11/16/16 0000 Signed Impressions: Service Date/Time: Wednesday, November 16, 2016 22:19 - CONCLUSION: 1. Right central line tip in superior vena cava without pneumothorax. Patchy airspace disease in the left lung and right lung base medially. William James MD Objective Remarks Drips: Propofol GENERAL: Morbidly obese female who is orotracheally intubated. SKIN: Warm and dry. HEAD: Atraumatic. Normocephalic. EYES: Pupils equal and round. No scleral icterus. No injection or drainage. ENT: No nasal bleeding or discharge. Mucous membranes pink and moist. NECK: Trachea midline. No JVD. CARDIOVASCULAR: Regular rate and rhythm. No murmurs rubs or gallops. RESPIRATORY: Orally intubated on mechanical ventilation, Clear to auscultation. Breath sounds equal bilaterally. No wheezing or crackles GASTROINTESTINAL: Abdomen soft, non-tender, nondistended. Hepatic and splenic margins not palpable. : Marvin in place MUSCULOSKELETAL: Extremities without clubbing, cyanosis. Left breast with some swelling. Wound vac in place Left chest wall with scant serosanginous output. No surrounding erythema. VASC: Right IJ central venous line in place with dressing clean/dry/intact. Right radial art line in place. NEUROLOGICAL: Sedated, arousable, orally intubated on mechanical ventilation, moves both upper extremities A/P Assessment and Plan NEURO: Propofol for sedation Target RASS -2 RESP: Adjust vent to PRVC TV 450 R 18 PEEP 8 IT O.8 Chest x-ray - satisfactory endotracheal tube position. Satisfactory central line position. L lung opacities and opacity in right base. CV: Septic shock Monitor hemodynamics. LR at 150 mL/h postoperatively. Levophed for pressor support. GI: Morbid obesity OG-tube in place to low intermittent wall suction. Initiate tube feeds and advanced to goal as tolerated. FEN/RENAL: Hypokalemia Marvin in place. Monitor intake and output. Monitor I's and replace as indicated per ICU electrolyte replacement protocol. ID: Septic shock Necrotizing fasciitis left axilla/chest wall /breast. Status post debridement of the chest wall, axilla and back by Dr. lainez 11/16/16 with wound VAC placement. Plan to return to OR for further debridement 11/18/16. Empiric coverage with clindamycin, vancomycin, Zosyn. Infectious disease consult. Blood cultures pending. Intraoperative wound culture pending. CXR with multifocal opacities. Check sputum culture. Check BNP. HEME: Bilateral lower ultrasound negative for DVT 11/16/16. Transfused 2 units of PRBCs on 11/18 for hemoglobin of 7. ENDO: Hyperglycemia without known history of diabetes Obtain hemoglobin A1c. Dose insulin sliding scale every 6 hours. PROPH: Protonix 40 mg IV daily for stress ulcer prophylaxis. Lovenox for DVT prophylaxis when okay with general surgery. ACCESS: Right IJ central venous line placed in OR 11/16/16. Right radial art line placed in OR 11/16/16 Full code Discussed with ENFORCEMENT OFFICER. Critical care time 30 minutes exclusive of separately billable procedures. Edgard Patel MD Nov 19, 2016 10:16
[2016-11-19] MEDS: HYDROmorphone HCL PF 1 MG/ML VIAL IV PUSH PRN (10:32)
[2016-11-19] MEDS: HYDROmorphone HCL PF 2 MG/ML VIAL IV PUSH PRN (21:59)
--- NOTE | 2016-11-19 22:56 | HHI.IDPN ---
Subjective Subjective Remarks Delayed entry - pt was seen earlier today around 1600 Improving Off pressors tolerates CPAP good UOP Afebril Antibiotics zosyn clindamycin Allergies: Coded Allergies: No Known Allergies (Unverified , 11/16/16) Objective . Vital Signs Date Time Temp Pulse Resp B/P Pulse Ox O2 Delivery O2 Flow Rate FiO2 11/19/16 22:03 95 40 11/19/16 20:30 93 40 11/19/16 20:00 99.0 104 33 96/54 95 11/19/16 20:00 40 11/19/16 16:41 96 40 11/19/16 16:41 40 11/19/16 16:00 98.0 93 17 119/68 100 11/19/16 16:00 40 11/19/16 15:00 89 11/19/16 13:00 40 11/19/16 12:59 100 40 11/19/16 12:00 98.2 96 18 112/67 100 11/19/16 09:16 100 40 11/19/16 08:00 98.3 94 22 109/67 100 11/19/16 07:00 97 11/19/16 04:30 97 40 11/19/16 04:00 99.0 96 18 124/78 98 11/19/16 01:52 100 40 11/19/16 00:00 99.4 92 18 127/69 96 11/18/16 23:00 99 11/18/16 11/18/16 11/19/16 15:00 23:00 07:00 Intake Total 1592 ml 1611 ml 2128 ml Output Total 1175 ml 750 ml 925 ml Balance 417 ml 861 ml 1203 ml Intake IV Total 1592 ml 1611 ml 1701 ml Tube Feeding 427 ml Output Urine Total 1050 ml 725 ml 825 ml Gastric Drainage Total 0 ml Drainage Total 125 ml 25 ml 100 ml # Bowel Movements 0 0 . Laboratory Tests Test 11/18/16 11/19/16 04:00 04:00 White Blood Count 23.0 TH/MM3 23.9 TH/MM3 Red Blood Count 2.53 MIL/MM3 2.79 MIL/MM3 Hemoglobin 7.0 GM/DL 7.7 GM/DL Hematocrit 21.1 % 23.0 % Mean Corpuscular Volume 83.1 FL 82.4 FL Mean Corpuscular Hemoglobin 27.5 PG 27.7 PG Mean Corpuscular Hemoglobin 33.1 % 33.6 % Concent Red Cell Distribution Width 17.0 % 16.0 % Platelet Count 347 TH/MM3 326 TH/MM3 Mean Platelet Volume 7.6 FL 7.5 FL Neutrophils (%) (Auto) 85.3 % 87.5 % Lymphocytes (%) (Auto) 6.9 % 7.2 % Monocytes (%) (Auto) 6.6 % 4.2 % Eosinophils (%) (Auto) 0.9 % 0.9 % Basophils (%) (Auto) 0.3 % 0.2 % Neutrophils # (Auto) 19.6 TH/MM3 20.9 TH/MM3 Lymphocytes # (Auto) 1.6 TH/MM3 1.7 TH/MM3 Monocytes # (Auto) 1.5 TH/MM3 1.0 TH/MM3 Eosinophils # (Auto) 0.2 TH/MM3 0.2 TH/MM3 Basophils # (Auto) 0.1 TH/MM3 0.1 TH/MM3 CBC Comment AUTO DIFF AUTO DIFF Differential Total Cells 100 100 Counted Neutrophils % (Manual) 57 % 86 % Band Neutrophils % 27 % 1 % Lymphocytes % 7 % 4 % Monocytes % 6 % 2 % Eosinophils % 1 % 1 % Neutrophils # (Manual) 19.8 TH/MM3 22.2 TH/MM3 Metamyelocytes 1 % 6 % Myelocytes 1 % Differential Comment FINAL DIFF FINAL DIFF MANUAL MANUAL Toxic Granulation 1+ Platelet Estimate NORMAL NORMAL Platelet Morphology Comment NORMAL NORMAL Ovalocytes 1+ Laboratory Tests Test 11/18/16 11/19/16 04:00 04:00 Sodium Level 142 MEQ/L 143 MEQ/L Potassium Level 3.8 MEQ/L 3.8 MEQ/L Chloride Level 108 MEQ/L 108 MEQ/L Carbon Dioxide Level 24.2 MEQ/L 23.2 MEQ/L Anion Gap 10 MEQ/L 12 MEQ/L Blood Urea Nitrogen 15 MG/DL 19 MG/DL Creatinine 1.94 MG/DL 2.37 MG/DL Estimat Glomerular Filtration 35 ML/MIN 28 ML/MIN Rate Random Glucose 178 MG/DL 127 MG/DL Calcium Level 7.2 MG/DL 7.5 MG/DL Protein Corrected Calcium 8.2 MG/DL Total Bilirubin 0.2 MG/DL 0.3 MG/DL Aspartate Amino Transf 17 U/L 19 U/L (AST/SGOT) Alanine Aminotransferase 21 U/L 20 U/L (ALT/SGPT) Alkaline Phosphatase 100 U/L 92 U/L Total Protein 5.2 GM/DL 5.2 GM/DL Albumin 1.4 GM/DL 1.3 GM/DL Microbiology Date/Time Procedure Status Source Growth 11/17/16 02:20 Urine Culture - Final Complete Urine Catheterized Urine Escherichia Coli Lactobacillus Species 11/17/16 11:00 Gram Stain - Final Complete Sputum Endotracheal 11/17/16 11:00 Sputum Culture - Final Complete Sputum Endotracheal RARE GROWTH NORMAL RESPIRATORY JEFFY Imaging Last Impressions Chest X-Ray 11/19/16 0600 Signed Impressions: Service Date/Time: Saturday, November 19, 2016 05:14 - CONCLUSION: Slight overall improvement in aeration Aristides Arias MD Lower Extremity Ultrasound 11/16/16 0000 Signed Impressions: Service Date/Time: Wednesday, November 16, 2016 22:30 - CONCLUSION: Normal examination. William James MD Physical Exam CONSTITUTIONAL/GENERAL: This is a morbidly obese female patient, in no apparent distress. TUBES/LINES/DRAINS: SKIN: No jaundice, rashes, or lesions. Large skin defect in L axilla/lateral chest area covered with VAC dressing; with serosangious dc no odor present Skin temperature appropriate. Not diaphoretic. CARDIOVASCULAR: Regular rate and rhythm without murmurs, gallops, or rubs. No JVD. Peripheral pulses symmetric. RESPIRATORY/CHEST: Symmetric, unlabored respirations. Clear to auscultation. Breath sounds equal bilaterally. No wheezes, rales, or rhonchi. GASTROINTESTINAL: Abdomen soft, non-tender, nondistended. No hepato-splenomegaly , or palpable masses. No guarding. Bowel sounds present. GENITOURINARY: Without palpable bladder distension. Marvin catheter in place with clear urine MUSCULOSKELETAL: Extremities without clubbing, cyanosis, or edema. No joint tenderness or effusion noted. No calf tenderness. No mottling or clubbing. LYMPHATICS: No palpable cervical or supraclavicular adenopathy. NEUROLOGICAL: Sedated ; opens eyes to stimulation Assessment & Plan Remarks Nec fasciitis L axillae/chest area, polimicrobial mixed aerobic/anaeroic along with staph sp emergent I+D clinically improving growing EW.coli, MSSA on appropriate empiric abx Critically ill Acute VDRF Severe leukocytosis cont zosyn, cont clindamycin anticipate eventual transition to po abx fu WBC Rachel Marsh MD Nov 19, 2016 22:56
[2016-11-19] MEDS: fentaNYL DRIP 250 ML IV SCH (23:56)
[2016-11-20] VITALS (15 sets, daily range): BP systolic 101–108; BP diastolic 54–62; PULSE 90–99; RESP 20–31; TEMP 97.4–98.6; O2SAT 95–100
[2016-11-20] MEDS: LACTATED RINGER'S 1000 ML INJ 1,000 ML IV SCH ×2 (00:58→13:25)
[2016-11-20] MEDS: PROPOFOL 1000 MG/100 ML INJ 100 ML IV SCH ×7 (00:58→23:42)
[2016-11-20] MEDS: PIPERACIL-TAZO 4.5 GM PREMIX 100 ML IV SCH ×2 (01:10→06:04)
[2016-11-20] MEDS: INSULIN ASPART SUPPLEMENTAL SCALE SQ SCH ×4 (02:54→21:15)
[2016-11-20] MEDS: CLINDAMYCIN INJ 900 MG in SODIUM CHLORIDE 0.9% INJ 100 ML IV SCH ×3 (03:00→20:58)
[2016-11-20] MEDS: CHLORHEXIDINE GLUCONATE 2 % 1 PACK (2 CLOTHS) TOP SCH (03:25)
[2016-11-20] MEDS: RESP: ALBUTEROL 2.5 MG/IPRATROPIUM 0.5 MG NEB (SCH) INH ×4 (04:10→20:06)
[2016-11-20 04:19] LABS: AUTOMATED NEUTROPHIL # 22.5 TH/MM3 (1.8-7.7); BASOPHIL # 0.1 TH/MM3 (0-0.2); BASOPHIL % 0.4 % (0.0-2.0); EOSINOPHIL # 0.3 TH/MM3 (0-0.4); EOSINOPHIL % 1.2 % (0.0-4.0); HEMATOCRIT 22.8 % (35.0-46.0); LYMPH % 6.8 % (9.0-44.0); LYMPHOCYTE # 1.7 TH/MM3 (1.0-4.8); MEAN CELL VOLUME 82.9 FL (80.0-100.0); MEAN CORPUSCULAR HEMOGLOBIN 27.5 PG (27.0-34.0); MEAN CORPUSCULAR HGB CONC 33.2 % (32.0-36.0); MONO % 4.5 % (0.0-8.0); NEUT % 87.1 % (16.0-70.0); PLATELET COUNT 399 TH/MM3 (150-450); RED BLOOD COUNT 2.75 MIL/MM3 (4.00-5.30); RED CELL DISTRIBUTION WIDTH 16.7 % (11.6-17.2); WHITE BLOOD COUNT 25.9 TH/MM3 (4.0-11.0)
[2016-11-20 04:31] LABS: HEMO FLAGS AUTO DIFF
[2016-11-20 04:42] LABS: ALT (GPT) 19 U/L (10-53); ANION GAP 11 MEQ/L (5-15); AST (GOT) 17 U/L (15-37); BICARBONATE 23.7 MEQ/L (21.0-32.0); BLOOD UREA NITROGEN 28 MG/DL (7-18); CHLORIDE 110 MEQ/L (98-107); GLOMERULAR FILTRATION RATE 26 ML/MIN (>89); POTASSIUM 4.2 MEQ/L (3.5-5.1); SODIUM (NA) 145 MEQ/L (136-145)
[2016-11-20 04:45] LABS: ALKALINE PHOSPHATASE 92 U/L (45-117); TOTAL BILIRUBIN ADULT 0.3 MG/DL (0.2-1.0)
[2016-11-20 04:53] LABS: BANDS 3 % (0-6); EOSINOPHILS 2 % (0-4); MYELOCYTES 9 % (0-0); NEUTROPHIL # MANUAL DIFF 23.6 TH/MM3 (1.8-7.7); OVALOCYTES 1+ (NORMAL); PLATELET ESTIMATE SMEAR NORMAL (NORMAL); PLATELET MORPHOLOGY NORMAL (NORMAL); POLYS (SEG NEUTROPHILS) 79 % (16-70); SCAN/DIFF FINAL DIFF MANUAL; WBC DIFF SAMPLE 100
[2016-11-20] MEDS: oxyCODONE/ACETAMINOPHEN 5 MG/325 MG TAB PO SCH ×4 (04:54→23:12)
--- NOTE | 2016-11-20 05:34 | MP ---
cc: ELEAZAR SOL DATE OF SURGERY: 11/18/2016 PREOPERATIVE DIAGNOSIS: Status post wide excision, necrotizing fasciitis, left chest, axilla and back. POSTOPERATIVE DIAGNOSIS Status post wide excision, necrotizing fasciitis, left chest, axilla and back. PROCEDURE PERFORMED: Vac change with irrigation and debridement of large necrotizing fasciitis wound. SURGEON Eleazar Sol MD. ANESTHESIA General endotracheal, lateral COMPLICATIONS None. INDICATIONS FOR PROCEDURE: Ms. Martins is an unfortunate 36-year-old female presented 48 hours ago with necrotizing fasciitis of her left axilla, chest, and back. She went to the operating room on Monday night for wide local excision and placement of Vac. She returns today for reevaluation of wound. The risks and benefits were discussed with her father and he was agreeable. DETAILS The patient was brought to the operating room and placed supine on the operating room table. She was then turned up in the right lateral decubitus position with appropriate padding for hips, knees, shoulders and ankle. The previous pack was removed. The wound was then prepped and draped in a standard surgical fashion with Betadine solution. The wound overall appeared clean. There was no bleeding noted. First the wound was cleaned with hydrogen peroxide. It was then rinsed out with three liters of warm saline solution. After probing the wound, I located two pockets of purulent material in the posterior area, toward the back, just lateral to the latissimus. These were opened up widely and then necrotic tissue debrided. These wounds were then cleansed with peroxide and saline, three liters. Once we did this, all wounds appeared clean and healthy. There was no foul-smell. There was no necrotic tissue. I felt comfortable the wound was stable, therefore, the Vac was replaced onto the area and the Vac was applied. The patient tolerated the procedure well with minimal blood loss. She was returned to the Intensive Care Unit in critical condition. MD PAPI Sweeney/SELWYN /12:04 PM /5:26 AM
[2016-11-20] MEDS ORDERED: PHARMACY ORDERED LAB XX ONE (06:00)
[2016-11-20] MEDS: PANTOPRAZOLE SODIUM 40 MG VIAL IV SCH (08:11)
[2016-11-20] MEDS: DOCUSATE SODIUM 100 MG CAP TUBE SCH ×2 (08:12→21:00)
[2016-11-20] MEDS: SODIUM CHLORIDE 0.9% FLUSH 5 ML FLUSH IV FLUSH SCH ×2 (08:12→21:36)
[2016-11-20] MEDS: CHLORHEXIDINE 0.12% (ORAL KIT) 15 ML CUP MT SCH ×2 (08:12→20:59)
--- NOTE | 2016-11-20 09:25 | HHI.CCPN ---
Subjective Remarks/Hospital Course 11/16: 36 yo morbidly obese female with past medical history of hypertension, bilateral lower extremity lymphedema who has undergone operative debridement for necrotizing fasciitis of left axilla, chest, back. Reportedly, about two weeks ago she developed a boil in left axilla after shaving. This eventually drained spontaneously and showed some initial improvement. She then developed blisters of the axilla and chest wall. About 2 days ago she developed some drainage from left chest. She had subjective fevers. She presented to [facility] ED where Dr. Lainez was consulted emergently for evaluation for necrotizing fasciitis. She provided informed surgical consent and was taken emergently to OR where she underwent debridement of left axilla, breast, left chest wall, back with wound VAC placement. Anesthesia records indicate that she was intubated with 2 Grant without reported difficulty. She received 2500 crystalloid. Estimated blood loss was 350. She received Zosyn, clindamycin, vancomycin. She was briefly on pressors in the OR but these have been weaned off. She is to remain intubated for postoperative resuscitation and for tentative plan to return to OR Monday morning 11/18/16 for debridement and wound vac change. 11/17: Remains sedated, orally intubated on mechanical ventilation. 11/18: Remains sedated, arousable, orally intubated on mechanical ventilation. Being transfused PRBCs this morning for hemoglobin of 7. On Levophed 3 mics per minute. OR schedule today for further debridement/wound VAC change. 11/19: Remains sedated, arousable, orally intubated on mechanical ventilation. Underwent further debridement left axilla with wound VAC change on 11/18. Off Levophed currently. Received 2 units PRBCs on 11/18. 11/20: Remains sedated, arousable, orally intubated on mechanical ventilation. Awaiting OR on 11/21 for wound VAC change and further debridement if needed. Objective Vital Signs Date Time Temp Pulse Resp B/P Pulse Ox O2 Delivery O2 Flow Rate FiO2 11/20/16 09:02 99 40 11/20/16 04:00 97.7 99 31 107/54 11/17/16 06:00 Mechanical Ventilator Intake and Output 11/19/16 11/19/16 11/20/16 08:00 16:00 00:00 Intake Total 2128 ml 1987 ml 1599 ml Output Total 925 ml 1075 ml 1045 ml Balance 1203 ml 912 ml 554 ml Result Diagram: 11/20/16 0400 11/20/16 0400 Other Results Microbiology Date/Time Procedure Status Source Growth 11/17/16 11:00 Gram Stain - Final Complete Sputum Endotracheal 11/17/16 11:00 Sputum Culture - Final Complete Sputum Endotracheal RARE GROWTH NORMAL RESPIRATORY JEFFY Imaging Last Impressions Lower Extremity Ultrasound 11/16/16 0000 Signed Impressions: Service Date/Time: Wednesday, November 16, 2016 22:30 - CONCLUSION: Normal examination. William James MD Chest X-Ray 11/16/16 0000 Signed Impressions: Service Date/Time: Wednesday, November 16, 2016 22:19 - CONCLUSION: 1. Right central line tip in superior vena cava without pneumothorax. Patchy airspace disease in the left lung and right lung base medially. William James MD Objective Remarks Drips: Propofol/ fentanyl GENERAL: Morbidly obese female who is orotracheally intubated. SKIN: Warm and dry. HEAD: Atraumatic. Normocephalic. EYES: Pupils equal and round. No scleral icterus. No injection or drainage. ENT: No nasal bleeding or discharge. Mucous membranes pink and moist. NECK: Trachea midline. No JVD. CARDIOVASCULAR: Regular rate and rhythm. No murmurs rubs or gallops. RESPIRATORY: Orally intubated on mechanical ventilation, Clear to auscultation. Breath sounds equal bilaterally. No wheezing or crackles GASTROINTESTINAL: Abdomen soft, non-tender, nondistended. Hepatic and splenic margins not palpable. : Marvin in place MUSCULOSKELETAL: Extremities without clubbing, cyanosis. Left breast with some swelling. Wound vac in place Left chest wall with scant serosanginous output. No surrounding erythema. VASC: Right IJ central venous line in place with dressing clean/dry/intact. Right radial art line in place. NEUROLOGICAL: Sedated, arousable, orally intubated on mechanical ventilation, moves both upper extremities Urinary Catheter: Yes Assessment to: Continue Vascular Central Line Catheter: Yes Assessment to: Continue A/P Assessment and Plan NEURO: Propofol/fentanyl for sedation and analgesia Target RASS -2. Daily sedation vacation RESP: Adjust vent to PRVC TV 450 R 18 PEEP 8 IT O.8 Chest x-ray - satisfactory endotracheal tube position. Satisfactory central line position. L lung opacities and opacity in right base. CV: Septic shock Monitor hemodynamics. LR at 150 mL/h postoperatively. Levophed for pressor support if needed. GI: Morbid obesity OG-tube in place to low intermittent wall suction. Initiate tube feeds and advanced to goal as tolerated. FEN/RENAL: Hypokalemia Marvin in place. Monitor intake and output. Monitor I's and replace as indicated per ICU electrolyte replacement protocol. ID: Septic shock Necrotizing fasciitis left axilla/chest wall /breast. Status post debridement of the chest wall, axilla and back by Dr. lainez 11/16/16 with wound VAC placement. Plan to return to OR for further debridement 11/18/16. Empiric coverage with clindamycin, vancomycin, Zosyn. Infectious disease consult. Blood cultures pending. Intraoperative wound culture pending. CXR with multifocal opacities. Check sputum culture. Check BNP. HEME: Bilateral lower ultrasound negative for DVT 11/16/16. Transfused 2 units of PRBCs on 11/18 for hemoglobin of 7. ENDO: Hyperglycemia without known history of diabetes Obtain hemoglobin A1c. Dose insulin sliding scale every 6 hours. PROPH: Protonix 40 mg IV daily for stress ulcer prophylaxis. Lovenox for DVT prophylaxis when okay with general surgery. ACCESS: Right IJ central venous line placed in OR 11/16/16. Right radial art line placed in OR 11/16/16 Full code Discussed with SECURITY SERVICES SPECIALIST. Critical care time 30 minutes exclusive of separately billable procedures. Edgard Patel MD Nov 20, 2016 09:25
--- NOTE | 2016-11-20 11:29 | HHI.PR ---
Subjective Subjective Notes sedated on vent, stable per RN, no problems with VAC Objective Vitals/I&O Vital Signs Date Time Temp Pulse Resp B/P Pulse Ox O2 Delivery O2 Flow Rate FiO2 11/20/16 09:02 99 40 11/20/16 08:00 97.7 96 20 11/20/16 04:00 107/54 11/17/16 06:00 Mechanical Ventilator Labs Laboratory Tests Test 11/20/16 04:00 White Blood Count 25.9 Red Blood Count 2.75 Hemoglobin 7.6 Hematocrit 22.8 Mean Corpuscular Volume 82.9 Mean Corpuscular Hemoglobin 27.5 Mean Corpuscular Hemoglobin 33.2 Concent Red Cell Distribution Width 16.7 Platelet Count 399 Mean Platelet Volume 7.1 Neutrophils (%) (Auto) 87.1 Lymphocytes (%) (Auto) 6.8 Monocytes (%) (Auto) 4.5 Eosinophils (%) (Auto) 1.2 Basophils (%) (Auto) 0.4 Neutrophils # (Auto) 22.5 Lymphocytes # (Auto) 1.7 Monocytes # (Auto) 1.2 Eosinophils # (Auto) 0.3 Basophils # (Auto) 0.1 CBC Comment AUTO DIFF Differential Total Cells 100 Counted Neutrophils % (Manual) 79 Band Neutrophils % 3 Lymphocytes % 5 Monocytes % 2 Eosinophils % 2 Neutrophils # (Manual) 23.6 Myelocytes 9 Differential Comment FINAL DIFF MANUAL Platelet Estimate NORMAL Platelet Morphology Comment NORMAL Ovalocytes 1+ Sodium Level 145 Potassium Level 4.2 Chloride Level 110 Carbon Dioxide Level 23.7 Anion Gap 11 Blood Urea Nitrogen 28 Creatinine 2.56 Estimat Glomerular Filtration 26 Rate Random Glucose 120 Calcium Level 7.6 Total Bilirubin 0.3 Aspartate Amino Transf 17 (AST/SGOT) Alanine Aminotransferase 19 (ALT/SGPT) Alkaline Phosphatase 92 Total Protein 5.3 Albumin 1.4 Random Vancomycin Level 29.4 Date/Time Procedure Status Source Growth 11/17/16 11:00 Gram Stain - Final Complete Sputum Endotracheal 11/17/16 11:00 Sputum Culture - Final Complete Sputum Endotracheal RARE GROWTH NORMAL RESPIRATORY JEFFY 11/17/16 02:20 Urine Culture - Final Complete Urine Catheterized Urine Escherichia Coli Lactobacillus Species 11/16/16 20:53 Fungal Smear - Final Resulted Wound Other NO FUNGAL ELEMENTS SEEN. 11/16/16 20:53 Fungal Culture Resulted Wound Other Pending 11/16/16 20:53 Acid Fast Stain - Final Resulted Wound Other NO ACID FAST BACILLI SEEN 11/16/16 20:53 Mycobacterial Culture Resulted Wound Other Pending 11/16/16 18:45 Aerobic Blood Culture - Preliminary Resulted Blood Peripheral NO GROWTH IN 4 DAYS 11/16/16 18:45 Anaerobic Blood Culture - Preliminary Resulted Blood Peripheral NO GROWTH IN 4 DAYS Narrative Exam VAC intact, skin stable, no blisters or erythema A/P Assessment and Plan 36 year old female POD4 wide local excision of soft tissue infection in LEFT axilla, chest breast -OR tomorrow for I&D and wound vac change -NPO after MN -Obtain consents -CCM following -ID following I certify and attest that I personally examined this patient and reviewed her findings in the EMR. Ms Ocasio is documenting our encounter on my behalf and entered orders under my direct supervision. I discussed our recommendations with the patient and family at the bedside. I also discussed our encounter with the nursing staff present. ELEAZAR SOL MD FACS Eleazar Sol MD Nov 20, 2016 11:29
[2016-11-20] MEDS: fentaNYL DRIP 250 ML IV SCH (11:34)
[2016-11-20] MEDS: PIPERACIL-TAZO 3.375 GM PREMIX 50 ML IV SCH ×3 (11:34→23:42)
[2016-11-20] MEDS ORDERED: MIDAZOLAM HCL 2 MG/2 ML VIAL IV ONE (13:30)
[2016-11-20] MEDS ORDERED: MIDAZOLAM 100 MG/ML INJ 100 ML IV SCH (13:30)
[2016-11-20 15:29] LABS: C. DIFF EPI 027 PRESUMPTIVE NEGATIVE (NEGATIVE); C. DIFF TOXIN PCR NEGATIVE (NEGATIVE)
[2016-11-21] VITALS (15 sets, daily range): BP systolic 97–117; BP diastolic 57–80; PULSE 75–96; RESP 14–20; TEMP 97.1–98.4; O2SAT 100
[2016-11-21] MEDS: LACTATED RINGER'S 1000 ML INJ 1,000 ML IV SCH ×2 (02:45→16:19)
[2016-11-21] MEDS: PROPOFOL 1000 MG/100 ML INJ 100 ML IV SCH ×8 (03:03→21:38)
[2016-11-21] MEDS: fentaNYL DRIP 250 ML IV SCH ×2 (03:10→23:42)
[2016-11-21] MEDS: INSULIN ASPART SUPPLEMENTAL SCALE SQ SCH ×4 (03:15→20:21)
[2016-11-21] MEDS: RESP: ALBUTEROL 2.5 MG/IPRATROPIUM 0.5 MG NEB (SCH) INH (03:32)
[2016-11-21] MEDS: CHLORHEXIDINE GLUCONATE 2 % 1 PACK (2 CLOTHS) TOP SCH (04:00)
[2016-11-21] MEDS: CLINDAMYCIN INJ 900 MG in SODIUM CHLORIDE 0.9% INJ 100 ML IV SCH ×3 (04:12→19:22)
[2016-11-21 04:46] LABS: HEMATOCRIT 23.4 % (35.0-46.0); MEAN CELL VOLUME 82.3 FL (80.0-100.0); MEAN CORPUSCULAR HEMOGLOBIN 27.4 PG (27.0-34.0); MEAN CORPUSCULAR HGB CONC 33.3 % (32.0-36.0); PLATELET COUNT 492 TH/MM3 (150-450); RED BLOOD COUNT 2.84 MIL/MM3 (4.00-5.30); REVIEW FLAG FINAL; WHITE BLOOD COUNT 24.7 TH/MM3 (4.0-11.0)
[2016-11-21 04:53] LABS: APTT (PATIENT) 27.1 SEC (24.3-30.1); INTERNATIONAL NORMALIZED RATIO 0.9 RATIO; PROTHROMBIN TIME - PATIENT 10.4 SEC (9.8-11.6)
[2016-11-21] MEDS: oxyCODONE/ACETAMINOPHEN 5 MG/325 MG TAB PO SCH ×4 (05:00→23:15)
[2016-11-21 05:08] LABS: ALKALINE PHOSPHATASE 88 U/L (45-117); ALT (GPT) 17 U/L (10-53); ANION GAP 9 MEQ/L (5-15); AST (GOT) 15 U/L (15-37); BICARBONATE 25.4 MEQ/L (21.0-32.0); BLOOD UREA NITROGEN 30 MG/DL (7-18); CHLORIDE 111 MEQ/L (98-107); GLOMERULAR FILTRATION RATE 28 ML/MIN (>89); POTASSIUM 4.7 MEQ/L (3.5-5.1); SODIUM (NA) 145 MEQ/L (136-145); TOTAL BILIRUBIN ADULT 0.3 MG/DL (0.2-1.0)
[2016-11-21] MEDS: PIPERACIL-TAZO 3.375 GM PREMIX 50 ML IV SCH ×4 (05:36→23:42)
[2016-11-21] MEDS: CHLORHEXIDINE 0.12% (ORAL KIT) 15 ML CUP MT SCH ×2 (08:12→20:00)
[2016-11-21] MEDS: PANTOPRAZOLE SODIUM 40 MG VIAL IV SCH (08:12)
[2016-11-21] MEDS: SODIUM CHLORIDE 0.9% FLUSH 5 ML FLUSH IV FLUSH SCH ×2 (08:12→20:22)
[2016-11-21] MEDS: DOCUSATE SODIUM 100 MG CAP TUBE SCH ×2 (08:12→20:22)
[2016-11-21] MEDS ORDERED: SODIUM CHLOR 0.9% 250 ML INJ 250 ML IV ONE (12:00)
[2016-11-21] MEDS ORDERED: LACTATED RINGER'S 1,000 ML BAG IV ONE (12:00)
--- NOTE | 2016-11-21 14:28 | HHI.CCPN ---
Subjective Remarks/Hospital Course 11/16: 36 yo morbidly obese female with past medical history of hypertension, bilateral lower extremity lymphedema who has undergone operative debridement for necrotizing fasciitis of left axilla, chest, back. Reportedly, about two weeks ago she developed a boil in left axilla after shaving. This eventually drained spontaneously and showed some initial improvement. She then developed blisters of the axilla and chest wall. About 2 days ago she developed some drainage from left chest. She had subjective fevers. She presented to [facility] ED where Dr. Lainez was consulted emergently for evaluation for necrotizing fasciitis. She provided informed surgical consent and was taken emergently to OR where she underwent debridement of left axilla, breast, left chest wall, back with wound VAC placement. Anesthesia records indicate that she was intubated with 2 Grant without reported difficulty. She received 2500 crystalloid. Estimated blood loss was 350. She received Zosyn, clindamycin, vancomycin. She was briefly on pressors in the OR but these have been weaned off. She is to remain intubated for postoperative resuscitation and for tentative plan to return to OR Monday morning 11/18/16 for debridement and wound vac change. 11/17: Remains sedated, orally intubated on mechanical ventilation. 11/18: Remains sedated, arousable, orally intubated on mechanical ventilation. Being transfused PRBCs this morning for hemoglobin of 7. On Levophed 3 mics per minute. OR schedule today for further debridement/wound VAC change. 11/19: Remains sedated, arousable, orally intubated on mechanical ventilation. Underwent further debridement left axilla with wound VAC change on 11/18. Off Levophed currently. Received 2 units PRBCs on 11/18. 11/20: Remains sedated, arousable, orally intubated on mechanical ventilation. Awaiting OR on 11/21 for wound VAC change and further debridement if needed. 11/21: Remains sedated, orally intubated on mechanical ventilation. Objective Vital Signs Date Time Temp Pulse Resp B/P Pulse Ox O2 Delivery O2 Flow Rate FiO2 11/21/16 13:20 100 11/21/16 12:00 97.6 76 15 103/65 100 Intake and Output 11/20/16 11/20/16 11/21/16 08:00 16:00 00:00 Intake Total 1654 ml 1458 ml 1786 ml Output Total 625 ml 1125 ml 900 ml Balance 1029 ml 333 ml 886 ml Result Diagram: 11/21/16 0420 11/21/16 0420 Imaging Last Impressions Lower Extremity Ultrasound 11/16/16 0000 Signed Impressions: Service Date/Time: Wednesday, November 16, 2016 22:30 - CONCLUSION: Normal examination. William James MD Chest X-Ray 11/16/16 0000 Signed Impressions: Service Date/Time: Wednesday, November 16, 2016 22:19 - CONCLUSION: 1. Right central line tip in superior vena cava without pneumothorax. Patchy airspace disease in the left lung and right lung base medially. William James MD Objective Remarks Drips: Propofol/ fentanyl GENERAL: Morbidly obese female who is orotracheally intubated. SKIN: Warm and dry. HEAD: Atraumatic. Normocephalic. EYES: Pupils equal and round. No scleral icterus. No injection or drainage. ENT: No nasal bleeding or discharge. Mucous membranes pink and moist. NECK: Trachea midline. No JVD. CARDIOVASCULAR: Regular rate and rhythm. No murmurs rubs or gallops. RESPIRATORY: Orally intubated on mechanical ventilation, Clear to auscultation. Breath sounds equal bilaterally. No wheezing or crackles GASTROINTESTINAL: Abdomen soft, non-tender, nondistended. Hepatic and splenic margins not palpable. : Marvin in place MUSCULOSKELETAL: Extremities without clubbing, cyanosis. Left breast with some swelling. Wound vac in place Left chest wall with scant serosanginous output. No surrounding erythema. VASC: Right IJ central venous line in place with dressing clean/dry/intact. Right radial art line in place. NEUROLOGICAL: Sedated, arousable, orally intubated on mechanical ventilation, moves both upper extremities A/P Assessment and Plan NEURO: Propofol/fentanyl for sedation and analgesia Target RASS -2. Daily sedation vacation RESP: Adjust vent to PRVC TV 450 R 18 PEEP 8 IT O.8 Chest x-ray - satisfactory endotracheal tube position. Satisfactory central line position. L lung opacities and opacity in right base. CV: Septic shock Monitor hemodynamics. LR at 75 mL/h postoperatively. Levophed for pressor support if needed. GI: Morbid obesity OG-tube in place to low intermittent wall suction. Initiate tube feeds and advanced to goal as tolerated. FEN/RENAL: Hypokalemia Marvin in place. Monitor intake and output. Monitor I's and replace as indicated per ICU electrolyte replacement protocol. ID: Septic shock Necrotizing fasciitis left axilla/chest wall /breast. Status post debridement of the chest wall, axilla and back by Dr. lainez 11/16/16 with wound VAC placement. Plan to return to OR for further debridement 11/18/16. Empiric coverage with clindamycin, vancomycin, Zosyn. Infectious disease consult. Blood cultures pending. Intraoperative wound culture staph aureus, E coli. CXR with multifocal opacities. Check sputum culture. Check BNP. HEME: Bilateral lower ultrasound negative for DVT 11/16/16. Transfused 2 units of PRBCs on 11/18 for hemoglobin of 7. ENDO: Hyperglycemia without known history of diabetes Obtain hemoglobin A1c. Dose insulin sliding scale every 6 hours. PROPH: Protonix 40 mg IV daily for stress ulcer prophylaxis. Lovenox for DVT prophylaxis when okay with general surgery. ACCESS: Right IJ central venous line placed in OR 11/16/16. Right radial art line placed in OR 11/16/16 Full code Discussed with SHANK BURNISHER. Critical care time 30 minutes exclusive of separately billable procedures. Edgard Patel MD Nov 21, 2016 14:27
[2016-11-22] VITALS (13 sets, daily range): BP systolic 116–149; BP diastolic 69–92; PULSE 74–88; RESP 14; TEMP 97.3–98.7; O2SAT 97–100
[2016-11-22] MEDS: PROPOFOL 1000 MG/100 ML INJ 100 ML IV SCH ×10 (00:11→22:07)
[2016-11-22] MEDS: CLINDAMYCIN INJ 900 MG in SODIUM CHLORIDE 0.9% INJ 100 ML IV SCH ×3 (03:05→19:46)
[2016-11-22] MEDS: INSULIN ASPART SUPPLEMENTAL SCALE SQ SCH ×4 (03:15→21:15)
[2016-11-22] MEDS: CHLORHEXIDINE GLUCONATE 2 % 1 PACK (2 CLOTHS) TOP SCH (04:11)
[2016-11-22] MEDS: oxyCODONE/ACETAMINOPHEN 5 MG/325 MG TAB PO SCH ×4 (05:15→23:15)
[2016-11-22] MEDS: LACTATED RINGER'S 1000 ML INJ 1,000 ML IV SCH (05:25)
[2016-11-22] MEDS: PIPERACIL-TAZO 3.375 GM PREMIX 50 ML IV SCH ×4 (05:35→23:30)
[2016-11-22] MEDS: CHLORHEXIDINE 0.12% (ORAL KIT) 15 ML CUP MT SCH ×2 (08:00→19:51)
[2016-11-22] MEDS: SODIUM CHLORIDE 0.9% FLUSH 5 ML FLUSH IV FLUSH SCH ×2 (09:00→20:28)
[2016-11-22] MEDS: PANTOPRAZOLE SODIUM 40 MG VIAL IV SCH (09:09)
[2016-11-22] MEDS: DOCUSATE SODIUM 100 MG CAP TUBE SCH ×2 (09:09→20:28)
--- NOTE | 2016-11-22 10:27 | MP ---
cc: ELEAZAR SOL M.D. DATE OF SURGERY: 11/21/2016 PREOPERATIVE DIAGNOSIS Large open wound status post radical debridement of necrotizing fasciitis left chest, axilla and back. POSTOPERATIVE DIAGNOSIS Large open wound status post radical debridement of necrotizing fasciitis left chest, axilla and back. PROCEDURE PERFORMED 1. Partial closure of large open wound. 2. I&D large complex wound. 3. Replacement of VAC. SURGEON Eleazar Sol ANESTHESIA General endotracheal. COMPLICATIONS None. INDICATION FOR PROCEDURE Bijal Martins is an unfortunate 36-year-old -[place] female who had a large necrotic infected wound in her left axilla consistent with necrotizing fasciitis. She was taken emergently to the operating room last week where she underwent a wide local excision and radical debridement of all infected tissue. She subsequently returned to the operating room last Monday where she had an I&D and VAC change. She presents today for yet another I&D and VAC change. Risks and benefits were discussed with her father and he was agreeable. DETAILS OF PROCEDURE The patient was identified, brought to the operating room and placed in the left lateral decubitus position with appropriate padding for hips, knees, shoulders and ankles. The previous VAC was then removed. The left chest, axilla and back were then prepped and draped in a standard surgical fashion using Betadine solution. Attention was first directed to inspection of the wound which appeared to be clean. There were no areas of necrotic tissue. There was no pus noted. The wound overall appeared to be granulating well with healthy bloody tissue. The wound was therefore washed out with six liters of warm saline solution. Once this was accomplished, gloves were changed. There were two pockets, one anteriorly and one posteriorly. A 10-Stateless Erik drain was then placed in the subcutaneous deep tissue via the left back and the left anterior chest. Once we did this we started primary approximation of the wound as far as we could get, both anteriorly and posteriorly. The wound was closed in layers using 2-0 Vicryl and 3-0 nylon. We were able to close posteriorly and anteriorly about 6 or 7 cm. We were then left with a central wound in the axilla proper that measured about 10 x 15 cm. The VAC was then placed in the 10 x 15 cm wound. The VAC was applied without any difficulty. The wound appeared healthy and clean and viable under the VAC. The Rodríguez-Espinal drains were activated. The patient tolerated the procedure well with minimal blood loss and no obvious complications. She was returned back to the intensive care unit in critical condition. MD PAPI Sweeney/DAYANARA /3:02 PM /10:19 AM
[2016-11-22] MEDS: fentaNYL DRIP 250 ML IV SCH ×2 (10:37→21:43)
--- NOTE | 2016-11-22 11:13 | HHI.CCPN ---
Subjective Remarks/Hospital Course 11/16: 36 yo morbidly obese female with past medical history of hypertension, bilateral lower extremity lymphedema who has undergone operative debridement for necrotizing fasciitis of left axilla, chest, back. Reportedly, about two weeks ago she developed a boil in left axilla after shaving. This eventually drained spontaneously and showed some initial improvement. She then developed blisters of the axilla and chest wall. About 2 days ago she developed some drainage from left chest. She had subjective fevers. She [place] [facility] [place]. Lainez was consulted emergently for evaluation for necrotizing fasciitis. She provided informed surgical consent and was taken emergently to OR where she underwent debridement of left axilla, breast, left chest wall, back with wound VAC placement. Anesthesia records indicate that she was intubated with 2 Grant without reported difficulty. She received 2500 crystalloid. Estimated blood loss was 350. She received Zosyn, clindamycin, vancomycin. She was briefly on pressors in the OR but these have been weaned off. She is to remain intubated for postoperative resuscitation and for tentative plan to return to OR Monday morning 11/18/16 for debridement and wound vac change. 11/17: Remains sedated, orally intubated on mechanical ventilation. 11/18: Remains sedated, arousable, orally intubated on mechanical ventilation. Being transfused PRBCs this morning for hemoglobin of 7. On Levophed 3 mics per minute. OR schedule today for further debridement/wound VAC change. 11/19: Remains sedated, arousable, orally intubated on mechanical ventilation. Underwent further debridement left axilla with wound VAC change on 11/18. Off Levophed currently. Received 2 units PRBCs on 11/18. 11/20: Remains sedated, arousable, orally intubated on mechanical ventilation. Awaiting OR on 11/21 for wound VAC change and further debridement if needed. 11/21: Remains sedated, orally intubated on mechanical ventilation. 11/22: Remains sedated, orally intubated on mechanical ventilation. Failed C Pap trial today. Objective Vital Signs Date Time Temp Pulse Resp B/P Pulse Ox O2 Delivery O2 Flow Rate FiO2 11/22/16 09:30 97.7 88 14 116/73 100 11/22/16 09:00 40 Intake and Output 11/21/16 11/21/16 11/22/16 08:00 16:00 00:00 Intake Total 1289 ml 0 ml 2590 ml Output Total 1100 ml 1075 ml Balance 189 ml 0 ml 1515 ml Result Diagram: 11/21/160 11/21/16 0420 Imaging Last Impressions Lower Extremity Ultrasound 11/16/16 0000 Signed Impressions: Service Date/Time: Wednesday, November 16, 2016 22:30 - CONCLUSION: Normal examination. William James MD Chest X-Ray 11/16/16 0000 Signed Impressions: Service Date/Time: Wednesday, November 16, 2016 22:19 - CONCLUSION: 1. Right central line tip in superior vena cava without pneumothorax. Patchy airspace disease in the left lung and right lung base medially. William James MD Objective Remarks Drips: Propofol/ fentanyl GENERAL: Morbidly obese female who is orotracheally intubated. SKIN: Warm and dry. HEAD: Atraumatic. Normocephalic. EYES: Pupils equal and round. No scleral icterus. No injection or drainage. ENT: No nasal bleeding or discharge. Mucous membranes pink and moist. NECK: Trachea midline. No JVD. CARDIOVASCULAR: Regular rate and rhythm. No murmurs rubs or gallops. RESPIRATORY: Orally intubated on mechanical ventilation, Clear to auscultation. Breath sounds equal bilaterally. No wheezing or crackles GASTROINTESTINAL: Abdomen soft, non-tender, nondistended. Hepatic and splenic margins not palpable. : Marvin in place MUSCULOSKELETAL: Extremities without clubbing, cyanosis. Left breast with some swelling. Wound vac in place Left chest wall with scant serosanginous output. No surrounding erythema. VASC: Right IJ central venous line in place with dressing clean/dry/intact. Right radial art line in place. NEUROLOGICAL: Sedated, arousable, orally intubated on mechanical ventilation, moves both upper extremities A/P Assessment and Plan NEURO: Propofol/fentanyl for sedation and analgesia Target RASS -2. Daily sedation vacation RESP: Adjust vent to PRVC TV 450 R 18 PEEP 7 IT O.8 Chest x-ray - satisfactory endotracheal tube position. Satisfactory central line position. L lung opacities and opacity in right base. Daily C Pap trials. Failed C Pap trials today. Significantly positive fluid balance. Will attempt diuresis to mobilize fluid. CV: Septic shock Monitor hemodynamics. LR at 75 mL/h postoperatively. Levophed for pressor support if needed. GI: Morbid obesity OG-tube in place to low intermittent wall suction. Initiate tube feeds and advanced to goal as tolerated. FEN/RENAL: Hypokalemia Marvin in place. Monitor intake and output. Monitor I's and replace as indicated per ICU electrolyte replacement protocol. Lasix 20 mg IV 1 dose to attempt mobilizing fluid in view of positive fluid balance. Decrease IV fluids to 50 cc per hour. ID: Septic shock Necrotizing fasciitis left axilla/chest wall /breast. Status post debridement of the chest wall, axilla and back by Dr. lainez 11/16/16 with wound VAC placement. Plan to return to OR for further debridement 11/18/16. Empiric coverage with clindamycin, vancomycin, Zosyn. Infectious disease consult. Blood cultures pending. Intraoperative wound culture staph aureus, E coli. CXR with multifocal opacities. Check sputum culture. Check BNP. HEME: Bilateral lower ultrasound negative for DVT 11/16/16. Transfused 2 units of PRBCs on 11/18 for hemoglobin of 7. ENDO: Hyperglycemia without known history of diabetes Obtain hemoglobin A1c. Dose insulin sliding scale every 6 hours. PROPH: Protonix 40 mg IV daily for stress ulcer prophylaxis. Lovenox for DVT prophylaxis when okay with general surgery. ACCESS: Right IJ central venous line placed in OR 11/16/16. Right radial art line placed in OR 11/16/16 Full code Discussed with [employer]. Critical care time 30 minutes exclusive of separately billable procedures. Edgard Patel MD Nov 22, 2016 11:12
[2016-11-22] MEDS ORDERED: FUROSEMIDE 20 MG/2 ML VIAL IV PUSH ONE (11:15)
[2016-11-22] MEDS ORDERED: POTASSIUM CL 40 MEQ/30 ML LIQ UDC OG ONE (11:30)
[2016-11-22] MEDS ORDERED: POTASSIUM CHLORIDE 20 MEQ PWD PACKET OG-TUBE ONE (13:00)
--- NOTE | 2016-11-22 15:26 | HHI.PR ---
Subjective Subjective Notes Intubated/Sedated Objective Vitals/I&O Vital Signs Date Time Temp Pulse Resp B/P Pulse Ox O2 Delivery O2 Flow Rate FiO2 11/22/16 12:00 100 40 11/22/16 12:00 85 11/22/16 12:00 97.7 14 121/69 Cardiovascular: Regular Lungs: Clear Abdomen: Non-distended, Non-tender Extremities: Other (see below ) Narrative Exam LEFT axilla; chest/breast with wound vac in place ---good seal A/P Assessment and Plan 36 year old female POD1 wide local excision of soft tissue infection in LEFT axilla, chest breast -Plan for bedside Wound Vac change on -[facility] following -ID following for antibiotics therapy -Discussed with EVELINA Velarde at bedside I CERTIFY AND ATTEST THAT I PERSONALLY EXAMINED THIS PATIENT. JANE DOCUMENTED OUR VISIT AND ENTERED ORDERS IN THE EMR UNDER MY DIRECT SUPERVISION. I DISCUSSED THE CARE PLAN WITH THE NURSING STAFF AND FAMILY (IF PRESENT). Priyanka Victoria MD, FACS Nov 22, 2016 15:26 Jose Armando Lainez MD Nov 24, 2016 11:50
--- NOTE | 2016-11-22 23:39 | HHI.IDPN ---
Subjective Subjective Remarks Delayed entry - pt was seen earlier today around 1600 Improving Off pressors not tolerating CPAP fluid overload good UOP Afebril Antibiotics zosyn clindamycin Allergies: Coded Allergies: No Known Allergies (Unverified , 11/16/16) Objective . Vital Signs Date Time Temp Pulse Resp B/P Pulse Ox O2 Delivery O2 Flow Rate FiO2 11/22/16 20:01 97 40 11/22/16 20:00 40 11/22/16 20:00 98.7 82 14 149/92 100 11/22/16 16:00 97.3 77 14 140/86 100 11/22/16 16:00 77 11/22/16 15:50 99 40 11/22/16 12:00 100 40 11/22/16 12:00 85 11/22/16 12:00 97.7 85 14 121/69 99 11/22/16 09:00 40 11/22/16 08:20 87 11/22/16 08:20 40 11/22/16 08:20 40 11/22/16 08:10 100 40 11/22/16 08:00 97.7 88 14 116/73 100 11/22/16 04:00 97.5 77 14 119/81 100 11/22/16 04:00 40 11/22/16 00:40 100 40 11/22/16 00:00 40 11/22/16 00:00 97.8 74 14 118/69 100 11/21/16 11/21/16 11/22/16 15:00 23:00 07:00 Intake Total 0 ml 2590 ml 1233 ml Output Total 1075 ml 820 ml Balance 0 ml 1515 ml 413 ml Intake Oral 0 ml IV Total 2501 ml 1095 ml Tube Feeding 89 ml 138 ml Output Urine Total 800 ml 725 ml Stool Total 50 ml Drainage Total 225 ml 95 ml # Bowel Movements 1 . Laboratory Tests Test 11/21/16 04:20 White Blood Count 24.7 TH/MM3 Red Blood Count 2.84 MIL/MM3 Hemoglobin 7.8 GM/DL Hematocrit 23.4 % Mean Corpuscular Volume 82.3 FL Mean Corpuscular Hemoglobin 27.4 PG Mean Corpuscular Hemoglobin 33.3 % Concent Red Cell Distribution Width 17.0 % Platelet Count 492 TH/MM3 Mean Platelet Volume 7.1 FL Laboratory Tests Test 11/21/16 04:20 Sodium Level 145 MEQ/L Potassium Level 4.7 MEQ/L Chloride Level 111 MEQ/L Carbon Dioxide Level 25.4 MEQ/L Anion Gap 9 MEQ/L Blood Urea Nitrogen 30 MG/DL Creatinine 2.40 MG/DL Estimat Glomerular Filtration 28 ML/MIN Rate Random Glucose 109 MG/DL Calcium Level 8.2 MG/DL Total Bilirubin 0.3 MG/DL Aspartate Amino Transf 15 U/L (AST/SGOT) Alanine Aminotransferase 17 U/L (ALT/SGPT) Alkaline Phosphatase 88 U/L Total Protein 5.8 GM/DL Albumin 1.5 GM/DL Imaging Last Impressions Chest X-Ray 11/19/16 0600 Signed Impressions: Service Date/Time: Saturday, November 19, 2016 05:14 - CONCLUSION: Slight overall improvement in aeration Aristides Arias MD Lower Extremity Ultrasound 11/16/16 0000 Signed Impressions: Service Date/Time: Wednesday, November 16, 2016 22:30 - CONCLUSION: Normal examination. William James MD Physical Exam CONSTITUTIONAL/GENERAL: This is a morbidly obese female patient, in no apparent distress. TUBES/LINES/DRAINS: SKIN: No jaundice, rashes, or lesions. Large skin defect in L axilla/lateral chest area covered with VAC dressing; with serosangious dc no odor present Skin temperature appropriate. Not diaphoretic. CARDIOVASCULAR: Regular rate and rhythm without murmurs, gallops, or rubs. No JVD. Peripheral pulses symmetric. RESPIRATORY/CHEST: Symmetric, unlabored respirations. Clear to auscultation. Breath sounds equal bilaterally. No wheezes, rales, or rhonchi. GASTROINTESTINAL: Abdomen soft, non-tender, nondistended. No hepato-splenomegaly , or palpable masses. No guarding. Bowel sounds present. GENITOURINARY: Without palpable bladder distension. Marvin catheter in place with clear urine MUSCULOSKELETAL: Extremities without clubbing, cyanosis, or edema. No joint tenderness or effusion noted. No calf tenderness. No mottling or clubbing. LYMPHATICS: No palpable cervical or supraclavicular adenopathy. NEUROLOGICAL: Sedated ; opens eyes to stimulation Assessment & Plan Remarks Nec fasciitis L axillae/chest area, polimicrobial mixed aerobic/anaeroic along with staph sp emergent I+D clinically improving growing EW.coli, MSSA on appropriate empiric abx Critically ill Acute VDRF Severe leukocytosis cont zosyn, dc clindamycin anticipate eventual transition to po abx (levaqin + flagyl) fu WBC dw Rachel Mccracken MD Nov 22, 2016 23:39
[2016-11-23] VITALS (11 sets, daily range): BP systolic 115–162; BP diastolic 63–102; PULSE 80–109; RESP 16–21; TEMP 97.7–98.4; O2SAT 94–100
[2016-11-23] MEDS: PROPOFOL 1000 MG/100 ML INJ 100 ML IV SCH ×4 (00:27→06:42)
[2016-11-23] MEDS: INSULIN ASPART SUPPLEMENTAL SCALE SQ SCH ×4 (03:05→21:15)
[2016-11-23] MEDS: CHLORHEXIDINE GLUCONATE 2 % 1 PACK (2 CLOTHS) TOP SCH (03:54)
[2016-11-23] MEDS: oxyCODONE/ACETAMINOPHEN 5 MG/325 MG TAB PO SCH ×3 (05:15→18:20)
--- NOTE | 2016-11-23 05:16 | RADRPT ---
EXAM DATE/TIME: 11/23/2016 04:13 [place] COMPARISON: CHEST SINGLE AP, November 19, 2016, 5:14. INDICATIONS : Shortness of breath. MEDICAL HISTORY : Hypertension. SURGICAL HISTORY : None. ENCOUNTER: Subsequent ACUITY: 1 week PAIN SCORE: Non-responsive. LOCATION: Bilateral chest FINDINGS: A single view of the chest demonstrates improving aeration in the left base with resolving atelectasi s/effusion. Slight worsening atelectatic changes above the right hemidiaphragm, however. Heart size i s prominent. Mild interstitial prominence suggesting some degree of vascular congestion or volume ove rload. Life support tubes are stable in position. CONCLUSION: 1. Improving aeration in the left base with resolving atelectasis/effusion. 2. However, there is slight interval worsening of the atelectatic changes above the right hemidiaphra gm. 3. Interstitial haziness suggesting some degree of vascular congestion or volume overload. Heart size remains prominent. 4. Stable position of life support tubes. Leo Newsome MD on November 23, 2016 at 5:14 Board Certified Radiologist. This report was verified electronically.
[2016-11-23 05:37] LABS: AUTOMATED NEUTROPHIL # 21.4 TH/MM3 (1.8-7.7); BASOPHIL # 0.1 TH/MM3 (0-0.2); BASOPHIL % 0.4 % (0.0-2.0); EOSINOPHIL # 0.4 TH/MM3 (0-0.4); EOSINOPHIL % 1.5 % (0.0-4.0); HEMATOCRIT 21.7 % (35.0-46.0); LYMPH % 6.6 % (9.0-44.0); LYMPHOCYTE # 1.6 TH/MM3 (1.0-4.8); MEAN CORPUSCULAR HEMOGLOBIN 27.8 PG (27.0-34.0); MEAN CORPUSCULAR HGB CONC 33.1 % (32.0-36.0); MONO % 4.5 % (0.0-8.0); PLATELET COUNT 581 TH/MM3 (150-450); RED BLOOD COUNT 2.58 MIL/MM3 (4.00-5.30); WHITE BLOOD COUNT 24.6 TH/MM3 (4.0-11.0)
[2016-11-23 05:48] LABS: ALKALINE PHOSPHATASE 86 U/L (45-117); ALT (GPT) 17 U/L (10-53); ANION GAP 7 MEQ/L (5-15); AST (GOT) 13 U/L (15-37); BLOOD UREA NITROGEN 30 MG/DL (7-18); CHLORIDE 113 MEQ/L (98-107); GLOMERULAR FILTRATION RATE 34 ML/MIN (>89); POTASSIUM 4.9 MEQ/L (3.5-5.1); SODIUM (NA) 148 MEQ/L (136-145); TOTAL BILIRUBIN ADULT 0.2 MG/DL (0.2-1.0)
[2016-11-23] MEDS: PIPERACIL-TAZO 3.375 GM PREMIX 50 ML IV SCH ×3 (06:01→18:21)
[2016-11-23 06:17] LABS: HEMO FLAGS AUTO DIFF
[2016-11-23 07:50] LABS: BANDS 9 % (0-6); METAMYELOCYTES 3 % (0-1); MYELOCYTES 5 % (0-0); NEUTROPHIL # MANUAL DIFF 22.4 TH/MM3 (1.8-7.7); POLYS (SEG NEUTROPHILS) 74 % (16-70); WBC DIFF SAMPLE 100
[2016-11-23 07:52] LABS: PLATELET ESTIMATE SMEAR HIGH (NORMAL); PLATELET MORPHOLOGY NORMAL (NORMAL); SCAN/DIFF FINAL DIFF MANUAL
[2016-11-23] MEDS: CHLORHEXIDINE 0.12% (ORAL KIT) 15 ML CUP MT SCH ×2 (08:00→23:45)
[2016-11-23] MEDS: HYDROmorphone HCL PF 2 MG/ML VIAL IV PUSH PRN (08:07)
[2016-11-23] MEDS: PANTOPRAZOLE SODIUM 40 MG VIAL IV SCH (08:07)
[2016-11-23] MEDS: SODIUM CHLORIDE 0.9% FLUSH 5 ML FLUSH IV FLUSH SCH ×2 (08:07→23:45)
[2016-11-23] MEDS: DOCUSATE SODIUM 100 MG CAP TUBE SCH ×2 (08:07→23:45)
[2016-11-23] MEDS: fentaNYL DRIP 250 ML IV SCH (08:37)
--- NOTE | 2016-11-23 16:01 | HHI.PR ---
Subjective Subjective Notes Intubated/Sedated Objective Vitals/I&O Vital Signs Date Time Temp Pulse Resp B/P Pulse Ox O2 Delivery O2 Flow Rate FiO2 11/23/16 12:42 99 40 11/23/16 12:00 97 11/23/16 12:00 97.9 17 130/63 Labs Laboratory Tests Test 11/23/16 04:30 White Blood Count 24.6 Red Blood Count 2.58 Hemoglobin 7.2 Hematocrit 21.7 Mean Corpuscular Volume 84.0 Mean Corpuscular Hemoglobin 27.8 Mean Corpuscular Hemoglobin 33.1 Concent Red Cell Distribution Width 17.0 Platelet Count 581 Mean Platelet Volume 7.1 Neutrophils (%) (Auto) 87.0 Lymphocytes (%) (Auto) 6.6 Monocytes (%) (Auto) 4.5 Eosinophils (%) (Auto) 1.5 Basophils (%) (Auto) 0.4 Neutrophils # (Auto) 21.4 Lymphocytes # (Auto) 1.6 Monocytes # (Auto) 1.1 Eosinophils # (Auto) 0.4 Basophils # (Auto) 0.1 CBC Comment AUTO DIFF Differential Total Cells 100 Counted Neutrophils % (Manual) 74 Band Neutrophils % 9 Lymphocytes % 7 Monocytes % 2 Neutrophils # (Manual) 22.4 Metamyelocytes 3 Myelocytes 5 Differential Comment FINAL DIFF MANUAL Platelet Estimate HIGH Platelet Morphology Comment NORMAL Sodium Level 148 Potassium Level 4.9 Chloride Level 113 Carbon Dioxide Level 28.0 Anion Gap 7 Blood Urea Nitrogen 30 Creatinine 2.02 Estimat Glomerular Filtration 34 Rate Random Glucose 113 Calcium Level 8.0 Total Bilirubin 0.2 Aspartate Amino Transf 13 (AST/SGOT) Alanine Aminotransferase 17 (ALT/SGPT) Alkaline Phosphatase 86 Total Protein 5.8 Albumin 1.6 Cardiovascular: Regular Lungs: Clear Abdomen: Non-distended, Non-tender Narrative Exam LEFT axilla; chest/breast with wound vac in place ---good seal A/P Assessment and Plan 36 year old female POD2 wide local excision of soft tissue infection in LEFT axilla, chest breast -Plan for bedside Wound Vac change tomorrow with Dr. Sol -[facility] following -ID following for antibiotics therapy -Discussed with EVELINA Velarde at bedside I CERTIFY AND ATTEST THAT I PERSONALLY EXAMINED THIS PATIENT. MS OCASIO DOCUMENTED OUR VISIT AND ENTERED ORDERS IN THE EMR UNDER MY DIRECT SUPERVISION. I DISCUSSED THE CARE PLAN WITH THE NURSING STAFF AND FAMILY (IF PRESENT). ELEAZAR SOL MD FACS Priyanka Ocasio Nov 23, 2016 16:01 Eleazar Sol MD Nov 24, 2016 11:52
--- NOTE | 2016-11-23 16:10 | HHI.CCPN ---
Subjective Remarks/Hospital Course 11/16: 36 yo morbidly obese female with past medical history of hypertension, bilateral lower extremity lymphedema who has undergone operative debridement for necrotizing fasciitis of left axilla, chest, back. Reportedly, about two weeks ago she developed a boil in left axilla after shaving. This eventually drained spontaneously and showed some initial improvement. She then developed blisters of the axilla and chest wall. About 2 days ago she developed some drainage from left chest. She had subjective fevers. She presented to [facility] [place] Dr. Lainez was consulted emergently for evaluation for necrotizing fasciitis. She provided informed surgical consent and was taken emergently to OR where she underwent debridement of left axilla, breast, left chest wall, back with wound VAC placement. Anesthesia records indicate that she was intubated with 2 Grant without reported difficulty. She received 2500 crystalloid. Estimated blood loss was 350. She received Zosyn, clindamycin, vancomycin. She was briefly on pressors in the OR but these have been weaned off. She is to remain intubated for postoperative resuscitation and for tentative plan to return to OR Monday morning 11/18/16 for debridement and wound vac change. 11/17: Remains sedated, orally intubated on mechanical ventilation. 11/18: Remains sedated, arousable, orally intubated on mechanical ventilation. Being transfused PRBCs this morning for hemoglobin of 7. On Levophed 3 mics per minute. OR schedule today for further debridement/wound VAC change. 11/19: Remains sedated, arousable, orally intubated on mechanical ventilation. Underwent further debridement left axilla with wound VAC change on 11/18. Off Levophed currently. Received 2 units PRBCs on 11/18. 11/20: Remains sedated, arousable, orally intubated on mechanical ventilation. Awaiting OR on 11/21 for wound VAC change and further debridement if needed. 11/21: Remains sedated, orally intubated on mechanical ventilation. 11/22: Remains sedated, orally intubated on mechanical ventilation. Failed C Pap trial today. Subjective 11/23: On CPAP throughout the day today. Appears comfortable.. Afebrile. Awake on 45 mcg/kg/m propofol and -225 mics grams an hour fentanyl drips. Tolerating tube feeding. Positive BM Objective Vital Signs Date Time Temp Pulse Resp B/P Pulse Ox O2 Delivery O2 Flow Rate FiO2 11/23/16 12:42 99 40 11/23/16 12:00 97 11/23/16 12:00 97.9 17 130/63 Intake and Output 11/22/16 11/22/16 11/23/16 08:00 16:00 00:00 Intake Total 1233 ml 1489 ml 1156 ml Output Total 820 ml 1495.0 ml 1710 ml Balance 413 ml -6.0 ml -554 ml Result Diagram: 11/23/16 0430 11/23/16 0430 Imaging Last Impressions Chest X-Ray 11/23/16 0600 Signed Impressions: Service Date/Time: Wednesday, November 23, 2016 04:13 - CONCLUSION: 1. Improving aeration in the left base with resolving atelectasis/effusion. 2. However, there is slight interval worsening of the atelectatic changes above the right hemidiaphragm. 3. Interstitial haziness suggesting some degree of vascular congestion or volume overload. Heart size remains prominent. 4. Stable position of life support tubes. Leo Newsome MD Lower Extremity Ultrasound 11/16/16 0000 Signed Impressions: Service Date/Time: Wednesday, November 16, 2016 22:30 - CONCLUSION: Normal examination. William James MD Objective Remarks GENERAL: 36-year-old obese female who is orotracheally intubated. SKIN: Warm and dry. No rash HEAD: Atraumatic. Normocephalic. EYES: Pupils equal and round around 3 mm bilaterally and reactive. No scleral icterus. No injection or drainage. ENT: No nasal bleeding or discharge. Mucous membranes pink and moist. NECK: Trachea midline. No JVD. CARDIOVASCULAR: Regular rate and rhythm. S1, S2. No S4. No murmurs rubs or gallops. RESPIRATORY: Distant breath sounds due to body habitus. Clear to auscultation. Breath sounds equal bilaterally. No wheezing or crackles GASTROINTESTINAL: Abdomen soft, non-tender, protuberant. Hypoactive bowel sounds MUSCULOSKELETAL: Extremities without clubbing, cyanosis. Left breast with some swelling. Wound vac in place Left chest wall with scant serosanginous output. No surrounding erythema. VASC: Right IJ central venous line in place with dressing clean/dry/intact. NEUROLOGICAL: Sedated, arousable, orally intubated on mechanical ventilation, moves both upper extremities Vascular Central Line Catheter: Yes Assessment to: Continue Date of Insertion: Nov 15, 2016 Line: Central Venous Catheter Side: Right Location: Internal, Jugular A/P Assessment and Plan NEURO/Psych: Depression Postoperative pain management Propofol currently at 40 mcg/kg/m/fentanyl at 2:20 AM I comes and hour for sedation and analgesia Target RASS -2. Daily sedation vacation Breakthrough Dilaudid for pain management Holding trazodone 50 mg at night. Resume clinically case for depression RESP: Acute hypoxemic respiratory failure/postop Currently on CPAP trials. Plan for extubation. Nif -36. Positive cuff leak Significantly positive fluid balance. Will attempt diuresis to mobilize fluid. Continue to Okay for extubation per surgery. CV: Septic shock - resolved History of hypertension Chronic lymphedema LR discontinued today. On metoprolol 25 twice a day 5 edition home. This be resumed as clinically indicated. On metolazone 5 mg daily for chronic lymphedema. Continue diuresis GI: Morbid obesity OG-tube in place to low intermittent wall suction. Initiate tube feeds and advanced to goal as tolerated. Protonix for GI prophylaxis Colace/as needed Senokot for bowel regimen FEN/RENAL: Hypokalemia Marvin in place. Monitor intake and output. Monitor I's and replace as indicated per ICU electrolyte replacement protocol. Lasix 20 mg IV 1 dose to attempt mobilizing fluid in view of positive fluid balance. Decrease IV fluids to 50 cc per hour. ID: Septic shock Necrotizing fasciitis left axilla/chest wall /breast. Status post debridement of the chest wall, axilla and back by Dr. lainez 11/16/16 with wound VAC placement. Returned to OR for further debridement 11/18/16 and 11/21 Empiric coverage with clindamycin, vancomycin, Zosyn. Infectious disease consult. Blood cultures no growth Intraoperative wound culture staph aureus, ESBL positive Escherichia coli CXR with multifocal opacities. Check sputum culture. Check BNP. HEME: Leukocytosis Normocytic anemia Thrombocytosis Bilateral lower ultrasound negative for DVT 11/16/16. Transfused 2 units of PRBCs on 11/18 for hemoglobin of 7. ENDO: Hyperglycemia of critical illness Continue sliding scale every 6 hours. PROPH: Protonix 40 mg IV daily for stress ulcer prophylaxis. Lovenox for DVT prophylaxis when okay with general surgery. ACCESS: Right IJ central venous line placed in OR 11/16/16. Critical Care: The total critical care time was 35 minutes. Time to perform other separately billable procedures was not included in the critical care time. Brett Guerra MD Nov 23, 2016 16:10
[2016-11-23] MEDS ORDERED: NALOXONE HCL 0.4 MG/ML AMP IV PRN ×2 (16:30→18:45)
[2016-11-23] MEDS: HYDROmorphone HCL PCA 6 MG/30 ML IV SCH (18:53)
--- NOTE | 2016-11-23 21:21 | HHI.IDPN ---
Subjective Subjective Remarks Delayed entry - pt was seen earlier today Improving Off pressors afebrile, but WBC quite high 5 BMs documented tolerating CPAP Antibiotics zosyn Allergies: Coded Allergies: No Known Allergies (Unverified , 11/16/16) Objective . Vital Signs Date Time Temp Pulse Resp B/P Pulse Ox O2 Delivery O2 Flow Rate FiO2 11/23/16 18:53 18 11/23/16 16:24 96 Nasal Cannula 4.00 11/23/16 16:15 98 Nasal Cannula 4.00 11/23/16 16:00 109 11/23/16 16:00 98.3 109 19 162/95 100 11/23/16 12:42 99 40 11/23/16 12:00 97 11/23/16 12:00 97.9 97 17 130/63 100 11/23/16 09:15 40 11/23/16 09:07 Nasal Cannula 40 11/23/16 09:07 94 40 11/23/16 08:00 97.7 93 21 146/94 100 11/23/16 08:00 93 11/23/16 08:00 40 11/23/16 04:18 98 40 11/23/16 04:00 98.2 80 16 115/76 98 11/23/16 04:00 40 11/23/16 01:27 97 40 11/23/16 00:00 98.4 85 18 133/90 99 11/23/16 00:00 40 11/22/16 23:00 76 11/22/16 11/22/16 11/23/16 15:00 23:00 07:00 Intake Total 1489 ml 1156 ml 972 ml Output Total 1495 ml 1710 ml 1005 ml Balance -6 ml -554 ml -33 ml IV Total 1178 ml 778 ml 655 ml Tube Feeding 311 ml 378 ml 317 ml Output Urine Total 1425 ml 1650 ml 950 ml Gastric Drainage Total 0 ml Tube Feeding Residual Discard 0 ml 0 ml Drainage Total 70 ml 60 ml 55 ml # Bowel Movements 2 1 2 . Laboratory Tests Test 11/23/16 04:30 White Blood Count 24.6 TH/MM3 Red Blood Count 2.58 MIL/MM3 Hemoglobin 7.2 GM/DL Hematocrit 21.7 % Mean Corpuscular Volume 84.0 FL Mean Corpuscular Hemoglobin 27.8 PG Mean Corpuscular Hemoglobin 33.1 % Concent Red Cell Distribution Width 17.0 % Platelet Count 581 TH/MM3 Mean Platelet Volume 7.1 FL Neutrophils (%) (Auto) 87.0 % Lymphocytes (%) (Auto) 6.6 % Monocytes (%) (Auto) 4.5 % Eosinophils (%) (Auto) 1.5 % Basophils (%) (Auto) 0.4 % Neutrophils # (Auto) 21.4 TH/MM3 Lymphocytes # (Auto) 1.6 TH/MM3 Monocytes # (Auto) 1.1 TH/MM3 Eosinophils # (Auto) 0.4 TH/MM3 Basophils # (Auto) 0.1 TH/MM3 CBC Comment AUTO DIFF Differential Total Cells 100 Counted Neutrophils % (Manual) 74 % Band Neutrophils % 9 % Lymphocytes % 7 % Monocytes % 2 % Neutrophils # (Manual) 22.4 TH/MM3 Metamyelocytes 3 % Myelocytes 5 % Differential Comment FINAL DIFF MANUAL Platelet Estimate HIGH Platelet Morphology Comment NORMAL Laboratory Tests Test 11/23/16 04:30 Sodium Level 148 MEQ/L Potassium Level 4.9 MEQ/L Chloride Level 113 MEQ/L Carbon Dioxide Level 28.0 MEQ/L Anion Gap 7 MEQ/L Blood Urea Nitrogen 30 MG/DL Creatinine 2.02 MG/DL Estimat Glomerular Filtration 34 ML/MIN Rate Random Glucose 113 MG/DL Calcium Level 8.0 MG/DL Total Bilirubin 0.2 MG/DL Aspartate Amino Transf 13 U/L (AST/SGOT) Alanine Aminotransferase 17 U/L (ALT/SGPT) Alkaline Phosphatase 86 U/L Total Protein 5.8 GM/DL Albumin 1.6 GM/DL Imaging Last Impressions Chest X-Ray 11/23/16 0600 Signed Impressions: Service Date/Time: Wednesday, November 23, 2016 04:13 - CONCLUSION: 1. Improving aeration in the left base with resolving atelectasis/effusion. 2. However, there is slight interval worsening of the atelectatic changes above the right hemidiaphragm. 3. Interstitial haziness suggesting some degree of vascular congestion or volume overload. Heart size remains prominent. 4. Stable position of life support tubes. Leo Newsome MD Lower Extremity Ultrasound 11/16/16 0000 Signed Impressions: Service Date/Time: Wednesday, November 16, 2016 22:30 - CONCLUSION: Normal examination. William James MD Physical Exam CONSTITUTIONAL/GENERAL: This is a morbidly obese female patient, in no apparent distress. TUBES/LINES/DRAINS: SKIN: No jaundice, rashes, or lesions. Large skin defect in L axilla/lateral chest area covered with VAC dressing; with serosangious dc no odor present area on lateral chest not karen to palpation Skin temperature appropriate. Not diaphoretic. CARDIOVASCULAR: Regular rate and rhythm without murmurs, gallops, or rubs. No JVD. Peripheral pulses symmetric. RESPIRATORY/CHEST: Symmetric, unlabored respirations. Clear to auscultation. Breath sounds equal bilaterally. No wheezes, rales, or rhonchi. GASTROINTESTINAL: Abdomen soft, non-tender, nondistended. No hepato-splenomegaly , or palpable masses. No guarding. Bowel sounds present. GENITOURINARY: Without palpable bladder distension. Marvin catheter in place with clear urine MUSCULOSKELETAL: Extremities without clubbing, cyanosis, + edema. NEUROLOGICAL: Sedated ; opens eyes to stimulation Assessment & Plan Remarks Nec fasciitis L axillae/chest area, polimicrobial mixed aerobic/anaeroic along with staph wide local excision of soft tissue infection in LEFT axilla, chest breast - last I+D /VAC change 11/21: report reviewed - no purulence or necrotic tissue clinically improving growing E.coli, MSSA, anaerob Acute VDRF, tolerating weaning - improving CXR Severe leukocytosis - persistent Diarrhea (5 BMs yday) - C.diff negative cont zosyn, rechk stool for C.diff if diarrhea persists anticipate eventual transition to po abx (levaqin + flagyl) fu WBC Rachel Marsh MD Nov 23, 2016 21:21
[2016-11-23] MEDS ORDERED: PCA - TOTAL MG DILAUDID DELIVERED PER SHIFT OTHER SCH (22:00)
[2016-11-23] MEDS: PCA - TOTAL MG DILAUDID DELIVERED PER SHIFT SCH (23:48)
[2016-11-24] VITALS (10 sets, daily range): BP systolic 122–158; BP diastolic 62–101; PULSE 76–108; RESP 8–17; TEMP 98.1–98.7; O2SAT 95–100
[2016-11-24] MEDS: PIPERACIL-TAZO 3.375 GM PREMIX 50 ML IV SCH ×4 (01:05→18:12)
[2016-11-24] MEDS: INSULIN ASPART SUPPLEMENTAL SCALE SQ SCH ×3 (03:15→21:15)
[2016-11-24] MEDS: CHLORHEXIDINE GLUCONATE 2 % 1 PACK (2 CLOTHS) TOP SCH (04:00)
[2016-11-24] MEDS: HYDROmorphone HCL PCA 6 MG/30 ML IV SCH ×2 (04:09→13:49)
[2016-11-24] MEDS: PCA - TOTAL MG DILAUDID DELIVERED PER SHIFT SCH ×2 (06:56→14:00)
[2016-11-24] MEDS: CHLORHEXIDINE 0.12% (ORAL KIT) 15 ML CUP MT SCH ×2 (08:00→20:00)
[2016-11-24] MEDS: DOCUSATE SODIUM 100 MG CAP TUBE SCH ×2 (09:00→21:00)
[2016-11-24] MEDS: SODIUM CHLORIDE 0.9% FLUSH 5 ML FLUSH IV FLUSH SCH ×2 (09:00→21:51)
[2016-11-24] MEDS: PANTOPRAZOLE SODIUM 40 MG VIAL IV SCH (09:34)
[2016-11-24] MEDS ORDERED: MIDAZOLAM HCL 5 MG/ML VIAL (1 ML) ONE (10:15)
--- NOTE | 2016-11-24 10:41 | HHI.CCPN ---
Subjective Remarks/Hospital Course 11/16: 36 yo morbidly obese female with past medical history of hypertension, bilateral lower extremity lymphedema who has undergone operative debridement for necrotizing fasciitis of left axilla, chest, back. Reportedly, about two weeks ago she developed a boil in left axilla after shaving. This eventually drained spontaneously and showed some initial improvement. She then developed blisters of the axilla and chest wall. About 2 days ago she developed some drainage from left chest. She had subjective fevers. She presented to [facility] ED where Dr. Lainez was consulted emergently for evaluation for necrotizing fasciitis. She provided informed surgical consent and was taken emergently to OR where she underwent debridement of left axilla, breast, left chest wall, back with wound VAC placement. Anesthesia records indicate that she was intubated with 2 millimeters without reported difficulty. She received 2500 crystalloid. Estimated blood loss was 350. She received Zosyn, clindamycin, vancomycin. She was briefly on pressors in the OR but these have been weaned off. She is to remain intubated for postoperative resuscitation and for tentative plan to return to OR Monday morning 11/18/16 for debridement and wound vac change. 11/17: Remains sedated, orally intubated on mechanical ventilation. 11/18: Remains sedated, arousable, orally intubated on mechanical ventilation. Being transfused PRBCs this morning for hemoglobin of 7. On Levophed 3 mics per minute. OR schedule today for further debridement/wound VAC change. 11/19: Remains sedated, arousable, orally intubated on mechanical ventilation. Underwent further debridement left axilla with wound VAC change on 11/18. Off Levophed currently. Received 2 units PRBCs on 11/18. 11/20: Remains sedated, arousable, orally intubated on mechanical ventilation. Awaiting OR on 11/21 for wound VAC change and further debridement if needed. 11/21: Remains sedated, orally intubated on mechanical ventilation. 11/22: Remains sedated, orally intubated on mechanical ventilation. Failed C Pap trial today. 11/23: On CPAP throughout the day today. Appears comfortable.. Afebrile. Awake on 45 mcg/kg/m propofol and -225 mics grams an hour fentanyl drips. Tolerating tube feeding. Positive BM Subjective 11/24: Extubated yesterday currently on 4 L nasal cannula. Currently receiving wound VAC change. Neurologically intact. Requesting advance diet. Objective Vital Signs Date Time Temp Pulse Resp B/P Pulse Ox O2 Delivery O2 Flow Rate FiO2 11/24/16 08:00 99 Nasal Cannula 4.00 11/24/16 08:00 98.1 79 12 145/72 11/23/16 12:42 40 Intake and Output 11/23/16 11/23/16 11/24/16 08:00 16:00 00:00 Intake Total 972 ml 1083 ml 1275 ml Output Total 1005.0 ml 1050.0 ml 1355 ml Balance -33.0 ml 33.0 ml -80 ml Result Diagram: 11/23/16 0430 11/23/16 0430 Imaging Last Impressions Chest X-Ray 11/23/16 0600 Signed Impressions: Service Date/Time: Wednesday, November 23, 2016 04:13 - CONCLUSION: 1. Improving aeration in the left base with resolving atelectasis/effusion. 2. However, there is slight interval worsening of the atelectatic changes above the right hemidiaphragm. 3. Interstitial haziness suggesting some degree of vascular congestion or volume overload. Heart size remains prominent. 4. Stable position of life support tubes. Leo Newsome MD Lower Extremity Ultrasound 11/16/16 0000 Signed Impressions: Service Date/Time: Wednesday, November 16, 2016 22:30 - CONCLUSION: Normal examination. William James MD Objective Remarks GENERAL: 36-year-old obese female resting in bed on nasal cannula SKIN: Warm and dry. No rash HEAD: Atraumatic. Normocephalic. EYES: Pupils equal and round around 3 mm bilaterally and reactive. No scleral icterus. No injection or drainage. ENT: No nasal bleeding or discharge. Mucous membranes pink and moist. NECK: Trachea midline. No JVD. CARDIOVASCULAR: Regular rate and rhythm. S1, S2. No S4. No murmurs rubs or gallops. RESPIRATORY: Distant breath sounds due to body habitus. Clear to auscultation. Breath sounds equal bilaterally. No wheezing or crackles GASTROINTESTINAL: Abdomen soft, non-tender, protuberant. Hypoactive bowel sounds MUSCULOSKELETAL: Extremities without significant peripheral edema. Wound VAC in place in left chest with minimal erythema. VASC: Right IJ central venous line in place with dressing clean/dry/intact. NEUROLOGICAL: Cranial nerves II through XII grossly intact. Strength equal and symmetric. Normal sensation. Urinary Catheter: Yes Assessment to: Continue Marvin insert reason: Prolonged Immobilization Date of Insertion: Nov 15, 2016 Line: Central Venous Catheter Side: Right Location: Internal, Jugular A/P Assessment and Plan NEURO/Psych: Depression Postoperative pain management [employer] Dilaudid for pain management Holding trazodone 50 mg at night. Resume clinically case for depression RESP: Acute hypoxemic respiratory failure/postop Nasal cannula to maintain saturations greater than equal to 92% Incentive spirometry while awake CV: Septic shock - resolved History of hypertension Chronic lymphedema LR discontinued resection On metoprolol 25 twice a day 5 edition home. This be resumed as clinically indicated. On metolazone 5 mg daily for chronic lymphedema. Continue diuresis GI: Morbid obesity Full liquid diet Protonix for GI prophylaxis Colace/as needed Senokot for bowel regimen FEN/RENAL: Hypokalemia Marvin in place. Monitor intake and output. Monitor I's and replace as indicated per ICU electrolyte replacement protocol. Lasix 20 mg IV 1 dose to attempt mobilizing fluid in view of positive fluid balance. Decrease IV fluids to 50 cc per hour. ID: Septic shock Necrotizing fasciitis left axilla/chest wall /breast. Status post debridement of the chest wall, axilla and back by Dr. lainez 11/16/16 with wound VAC placement. Returned to OR for further debridement 11/18/16 and 11/21 Empiric coverage with vancomycin, Zosyn. Infectious disease consult. Blood cultures no growth Intraoperative wound culture staph aureus, ESBL positive Escherichia coli CXR with multifocal opacities. HEME: Leukocytosis Normocytic anemia Thrombocytosis Bilateral lower ultrasound negative for DVT 11/16/16. Transfused 2 units of PRBCs on 11/18 for hemoglobin of 7. ENDO: Hyperglycemia of critical illness Continue sliding scale every 6 hours. PROPH: Protonix 40 mg IV daily for stress ulcer prophylaxis. Lovenox for DVT prophylaxis when okay with general surgery. ACCESS: Right IJ central venous line placed in OR 11/16/16. Critical Care: The total critical care time was 35 minutes. Time to perform other separately billable procedures was not included in the critical care time. Brett Guerra MD Nov 24, 2016 10:41 Critical Care: The total critical care time was 35 minutes. Time to perform other separately billable procedures was not included in the critical care time. Brett Guerra MD Nov 24, 2016 10:41
[2016-11-24] MEDS ORDERED: MIDAZOLAM HCL 2 MG/2 ML VIAL IV PUSH PRN ×2 (10:45)
[2016-11-24 11:36] LABS: AUTOMATED NEUTROPHIL # 20.9 TH/MM3 (1.8-7.7); BASOPHIL # 0.3 TH/MM3 (0-0.2); BASOPHIL % 1.2 % (0.0-2.0); EOSINOPHIL # 0.2 TH/MM3 (0-0.4); EOSINOPHIL % 0.9 % (0.0-4.0); HEMATOCRIT 21.2 % (35.0-46.0); LYMPH % 7.1 % (9.0-44.0); LYMPHOCYTE # 1.7 TH/MM3 (1.0-4.8); MEAN CELL VOLUME 83.6 FL (80.0-100.0); MEAN CORPUSCULAR HEMOGLOBIN 27.7 PG (27.0-34.0); MEAN CORPUSCULAR HGB CONC 33.2 % (32.0-36.0); MONO % 5.5 % (0.0-8.0); NEUT % 85.3 % (16.0-70.0); PLATELET COUNT 661 TH/MM3 (150-450); RED BLOOD COUNT 2.54 MIL/MM3 (4.00-5.30); RED CELL DISTRIBUTION WIDTH 16.8 % (11.6-17.2); WHITE BLOOD COUNT 24.5 TH/MM3 (4.0-11.0)
[2016-11-24 11:38] LABS: HEMO FLAGS AUTO DIFF
--- NOTE | 2016-11-24 11:54 | HHI.PR ---
Subjective Subjective Notes Extubated Objective Vitals/I&O Vital Signs Date Time Temp Pulse Resp B/P Pulse Ox O2 Delivery O2 Flow Rate FiO2 11/24/16 08:00 99 Nasal Cannula 4.00 11/24/16 08:00 98.1 79 12 145/72 11/23/16 12:42 40 Labs Laboratory Tests Test 11/23/16 11/24/16 18:35 11:16 Urine Eosinophils NONE SEEN Urine Random Creatinine 43.1 Urine Random Sodium 95 White Blood Count 24.5 Red Blood Count 2.54 Hemoglobin 7.0 Hematocrit 21.2 Mean Corpuscular Volume 83.6 Mean Corpuscular Hemoglobin 27.7 Mean Corpuscular Hemoglobin 33.2 Concent Red Cell Distribution Width 16.8 Platelet Count 661 Mean Platelet Volume 6.8 Neutrophils (%) (Auto) 85.3 Lymphocytes (%) (Auto) 7.1 Monocytes (%) (Auto) 5.5 Eosinophils (%) (Auto) 0.9 Basophils (%) (Auto) 1.2 Neutrophils # (Auto) 20.9 Lymphocytes # (Auto) 1.7 Monocytes # (Auto) 1.4 Eosinophils # (Auto) 0.2 Basophils # (Auto) 0.3 CBC Comment AUTO DIFF Cardiovascular: Regular Lungs: Clear Abdomen: Non-distended, Non-tender Narrative Exam LEFT axilla; chest/breast----wound vac removed--- SUNIL drain x2 in place with bloody drainage; tissue beefy red with no exudate wound vac replaced with good seal A/P Assessment and Plan 36 year old female POD3 wide local excision of soft tissue infection in LEFT axilla, chest breast -Plan to change vac again Monday with Wound Team -Start PO diet; advance as tolerated -CCM following -ID following for antibiotics therapy -Discussed with EVELINA Velarde and Wound Team at bedside I certify and attest that I personally examined this patient with Ms. Ocasio who documented our visit in the EMR and entered orders under my direct supervision. I reviewed the care plan with the nursing staff and family if present. Priyanka Norman MD, FACS Nov 24, 2016 11:54 Jose Armando Lainez MD Dec 07, 2016 14:27
[2016-11-24 11:56] LABS: POTASSIUM 4.7 MEQ/L (3.5-5.1)
[2016-11-24 12:17] LABS: BANDS 13 % (0-6); EOSINOPHILS 1 % (0-4); MYELOCYTES 1 % (0-0); NEUTROPHIL # MANUAL DIFF 19.4 TH/MM3 (1.8-7.7); PLATELET ESTIMATE SMEAR HIGH (NORMAL); PLATELET MORPHOLOGY NORMAL (NORMAL); POLYS (SEG NEUTROPHILS) 65 % (16-70); SCAN/DIFF FINAL DIFF MANUAL; WBC DIFF SAMPLE 100
--- NOTE | 2016-11-24 17:50 | RADRPT ---
EXAM DATE/TIME: 11/24/2016 09:51 [place] COMPARISON: No previous studies available for comparison. INDICATIONS : Increased BUN/creatinine. MEDICAL HISTORY : Hypertension. Ovarian cysts. Substance use. Chronic lymphedema. Morbid obesity. SURGICAL HISTORY : None. ENCOUNTER: Initial ACUITY: 1 day PAIN SCORE: 0/10 LOCATION: Bilateral flank MEASUREMENTS: RIGHT KIDNEY: 13.1 x 6.0 x 5.9 cm LEFT KIDNEY: 11.8 x 6.9 x 7.8 cm FINDINGS: Both kidneys have some increased echogenicity. No hydronephrosis. No focal mass or cyst. No perinephr ic fluid. Bladder unremarkable. CONCLUSION: 1. Echogenic kidneys characteristic of medical renal disease. No hydronephrosis. Bladder unremarkable . William James MD on November 24, 2016 at 17:47 Board Certified Radiologist. This report was verified electronically.
[2016-11-25] VITALS (12 sets, daily range): BP systolic 142–163; BP diastolic 71–87; PULSE 72–124; RESP 6–20; TEMP 98–99; O2SAT 96–100
[2016-11-25] MEDS: PIPERACIL-TAZO 3.375 GM PREMIX 50 ML IV SCH ×5 (00:58→23:33)
[2016-11-25] MEDS: PCA - TOTAL MG DILAUDID DELIVERED PER SHIFT SCH ×4 (00:59→21:32)
[2016-11-25] MEDS: INSULIN ASPART SUPPLEMENTAL SCALE SQ SCH ×4 (03:15→20:15)
[2016-11-25] MEDS: HYDROmorphone HCL PCA 6 MG/30 ML IV SCH ×2 (03:53→14:44)
[2016-11-25] MEDS: CHLORHEXIDINE GLUCONATE 2 % 1 PACK (2 CLOTHS) TOP SCH (04:00)
[2016-11-25 04:26] LABS: AUTOMATED NEUTROPHIL # 21.7 TH/MM3 (1.8-7.7); BASOPHIL # 0.2 TH/MM3 (0-0.2); BASOPHIL % 0.9 % (0.0-2.0); EOSINOPHIL # 0.3 TH/MM3 (0-0.4); EOSINOPHIL % 1.2 % (0.0-4.0); HEMATOCRIT 22.4 % (35.0-46.0); LYMPHOCYTE # 1.8 TH/MM3 (1.0-4.8); MEAN CELL VOLUME 83.2 FL (80.0-100.0); MEAN CORPUSCULAR HEMOGLOBIN 27.4 PG (27.0-34.0); NEUT % 84.9 % (16.0-70.0); PLATELET COUNT 722 TH/MM3 (150-450); RED BLOOD COUNT 2.69 MIL/MM3 (4.00-5.30); RED CELL DISTRIBUTION WIDTH 16.2 % (11.6-17.2); WHITE BLOOD COUNT 25.5 TH/MM3 (4.0-11.0)
[2016-11-25 04:27] LABS: HEMO FLAGS AUTO DIFF
[2016-11-25 04:45] LABS: ALT (GPT) 24 U/L (10-53); ANION GAP 7 MEQ/L (5-15); AST (GOT) 19 U/L (15-37); BICARBONATE 27.8 MEQ/L (21.0-32.0); BLOOD UREA NITROGEN 27 MG/DL (7-18); CHLORIDE 110 MEQ/L (98-107); GLOMERULAR FILTRATION RATE 38 ML/MIN (>89); MAGNESIUM 2.1 MG/DL (1.5-2.5); POTASSIUM 4.6 MEQ/L (3.5-5.1); SODIUM (NA) 145 MEQ/L (136-145)
[2016-11-25 04:47] LABS: ALKALINE PHOSPHATASE 93 U/L (45-117); TOTAL BILIRUBIN ADULT 0.2 MG/DL (0.2-1.0)
[2016-11-25 07:30] LABS: BANDS 16 % (0-6); BASOPHILS 1 % (0-2); EOSINOPHILS 1 % (0-4); METAMYELOCYTES 1 % (0-1); MYELOCYTES 6 % (0-0); NEUTROPHIL # MANUAL DIFF 21.4 TH/MM3 (1.8-7.7); PLATELET ESTIMATE SMEAR HIGH (NORMAL); PLATELET MORPHOLOGY NORMAL (NORMAL); POLYS (SEG NEUTROPHILS) 61 % (16-70); SCAN/DIFF FINAL DIFF MANUAL; WBC DIFF SAMPLE 100
[2016-11-25 07:31] LABS: TARGET CELLS 1+ (NORMAL)
[2016-11-25] MEDS: CHLORHEXIDINE 0.12% (ORAL KIT) 15 ML CUP MT SCH ×2 (08:00→19:20)
[2016-11-25] MEDS: DOCUSATE SODIUM 100 MG CAP TUBE SCH ×2 (09:00→20:14)
[2016-11-25] MEDS: PANTOPRAZOLE SODIUM 40 MG VIAL IV SCH (09:14)
[2016-11-25] MEDS: SODIUM CHLORIDE 0.9% FLUSH 5 ML FLUSH IV FLUSH SCH ×2 (09:14→20:14)
--- NOTE | 2016-11-25 20:29 | HHI.CCPN ---
Subjective Remarks/Hospital Course 11/16: 36 yo morbidly obese female with past medical history of hypertension, bilateral lower extremity lymphedema who has undergone operative debridement for necrotizing fasciitis of left axilla, chest, back. Reportedly, about two weeks ago she developed a boil in left axilla after shaving. This eventually drained spontaneously and showed some initial improvement. She then developed blisters of the axilla and chest wall. About 2 days ago she developed some drainage from left chest. She had subjective fevers. She presented to [facility] ED where Dr. Lainez was consulted emergently for evaluation for necrotizing fasciitis. She provided informed surgical consent and was taken emergently to OR where she underwent debridement of left axilla, breast, left chest wall, back with wound VAC placement. Anesthesia records indicate that she was intubated with 2 millimeters without reported difficulty. She received 2500 crystalloid. Estimated blood loss was 350. She received Zosyn, clindamycin, vancomycin. She was briefly on pressors in the OR but these have been weaned off. She is to remain intubated for postoperative resuscitation and for tentative plan to return to OR Monday morning 11/18/16 for debridement and wound vac change. 11/17: Remains sedated, orally intubated on mechanical ventilation. 11/18: Remains sedated, arousable, orally intubated on mechanical ventilation. Being transfused PRBCs this morning for hemoglobin of 7. On Levophed 3 mics per minute. OR schedule today for further debridement/wound VAC change. 11/19: Remains sedated, arousable, orally intubated on mechanical ventilation. Underwent further debridement left axilla with wound VAC change on 11/18. Off Levophed currently. Received 2 units PRBCs on 11/18. 11/20: Remains sedated, arousable, orally intubated on mechanical ventilation. Awaiting OR on 11/21 for wound VAC change and further debridement if needed. 11/21: Remains sedated, orally intubated on mechanical ventilation. 11/22: Remains sedated, orally intubated on mechanical ventilation. Failed C Pap trial today. 11/23: On CPAP throughout the day today. Appears comfortable.. Afebrile. Awake on 45 mcg/kg/m propofol and -225 mics grams an hour fentanyl drips. Tolerating tube feeding. Positive BM 11/24: Extubated yesterday currently on 4 L nasal cannula. Currently receiving wound VAC change. Neurologically intact. Requesting advance diet. Subjective 11/25: MAXIMUM TEMPERATURE 99. Currently on room air. Neurologically intact.. Feels weak throughout. Positive BM. Tolerating diet. Objective Vital Signs Date Time Temp Pulse Resp B/P Pulse Ox O2 Delivery O2 Flow Rate FiO2 11/25/16 20:00 87 11/25/16 20:00 99.0 10 143/85 98 11/25/16 19:00 Room Air 11/25/16 08:38 2.00 11/23/16 12:42 40 Intake and Output 11/24/16 11/24/16 11/25/16 08:00 16:00 00:00 Intake Total 908 ml 904 ml 720 ml Output Total 1320 ml 1875 ml 1580 ml Balance -412 ml -971 ml -860 ml Result Diagram: 11/25/16 0400 11/25/16 0400 Imaging Last Impressions Renal Ultrasound 11/24/16 0000 Signed Impressions: Service Date/Time: November 09:51 - CONCLUSION: 1. Echogenic kidneys characteristic of medical renal disease. No hydronephrosis. Bladder unremarkable. William James MD Chest X-Ray 11/23/16 0600 Signed Impressions: Service Date/Time: Wednesday, November 23, 2016 04:13 - CONCLUSION: 1. Improving aeration in the left base with resolving atelectasis/effusion. 2. However, there is slight interval worsening of the atelectatic changes above the right hemidiaphragm. 3. Interstitial haziness suggesting some degree of vascular congestion or volume overload. Heart size remains prominent. 4. Stable position of life support tubes. Leo Newsome MD Lower Extremity Ultrasound 11/16/16 0000 Signed Impressions: Service Date/Time: Wednesday, November 16, 2016 22:30 - CONCLUSION: Normal examination. William James MD Objective Remarks GENERAL: 36-year-old obese female resting in bed on nasal cannula SKIN: Warm and dry. No rash HEAD: Atraumatic. Normocephalic. EYES: Pupils equal and round around 3 mm bilaterally and reactive. No scleral icterus. No injection or drainage. ENT: No nasal bleeding or discharge. Mucous membranes pink and moist. NECK: Trachea midline. No JVD. CARDIOVASCULAR: Regular rate and rhythm. S1, S2. No S4. No murmurs rubs or gallops. RESPIRATORY: Distant breath sounds due to body habitus. Clear to auscultation. Breath sounds equal bilaterally. No wheezing or crackles GASTROINTESTINAL: Abdomen soft, non-tender, protuberant. Hypoactive bowel sounds MUSCULOSKELETAL: Extremities without significant peripheral edema. Wound VAC in place in left chest with minimal erythema. VASC: Right IJ central venous line in place with dressing clean/dry/intact. NEUROLOGICAL: Cranial nerves II through XII grossly intact. Strength equal and symmetric. Normal sensation. 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 RESP: Acute hypoxemic respiratory failure/postop Nasal cannula to maintain saturations greater than equal to 92% note currently in room air Incentive spirometry while awake CV: Septic shock - resolved History of hypertension Chronic lymphedema On metoprolol 25 twice a day 5 edition home. This will be resumed as clinically indicated. On metolazone 5 mg daily for chronic lymphedema. Continue diuresis GI: Morbid obesity Heart healthy diet Protonix for GI prophylaxis Colace/as needed Senokot for bowel regimen FEN/RENAL: Hypokalemia Marvin in place. Monitor intake and output. ID: Septic shock Necrotizing fasciitis left axilla/chest wall /breast. Status post debridement of the chest wall, axilla and back by Dr. lainez 11/16/16 with wound VAC placement. Returned to OR for further debridement 11/18/16 and 11/21 Empiric coverage with Zosyn. Infectious disease consult. Blood cultures no growth Intraoperative wound culture staph aureus, ESBL positive Escherichia coli CXR with multifocal opacities. HEME: Leukocytosis Normocytic anemia Thrombocytosis - likely reactive secondary to infection/inflammation Bilateral lower ultrasound negative for DVT 11/16/16. Transfused 2 units of PRBCs on 11/18 for hemoglobin of 7. Check CBC in AM. Follow trends with elevated white blood cell count and crp and peripheral smear and fibrinogen have been ordered/acute phase reactants ENDO: Hyperglycemia of critical illness Continue sliding scale every 6 hours. PROPH: Protonix 40 mg IV daily for stress ulcer prophylaxis. Heparin for DVT prophylaxis when okay with general surgery. ACCESS: Right IJ central venous line placed in OR 11/16/16. We'll tentatively discontinue soon once 2 peripheral IVs placed Critical Care: The critical care time was 35 minutes. Time to perform other separately billable procedures was not included in the critical care time. Patient is stable from a critical care medicine standpoint. We will assign care to hospice in a.m. 11/26. Brett Guerra MD Nov 25, 2016 20:29
--- NOTE | 2016-11-25 22:01 | HHI.IDPN ---
Subjective Subjective Remarks extubated afebrile, but persistently high WBC > 25 K co LUE pain denies abd pain + diarrhea Antibiotics zosyn Allergies: Coded Allergies: No Known Allergies (Unverified , 11/16/16) Objective . Vital Signs Date Time Temp Pulse Resp B/P Pulse Ox O2 Delivery O2 Flow Rate FiO2 11/25/16 21:35 98 11/25/16 21:32 10 11/25/16 20:00 87 11/25/16 20:00 99.0 88 10 143/85 98 11/25/16 19:00 97 Room Air 11/25/16 18:00 108 11/25/16 16:00 98.2 90 20 146/84 96 11/25/16 16:00 100 11/25/16 14:44 12 11/25/16 14:00 104 11/25/16 14:00 12 11/25/16 12:00 98.3 90 14 147/71 97 11/25/16 12:00 90 11/25/16 11:00 Room Air 11/25/16 10:00 124 11/25/16 08:38 98 Nasal Cannula 2.00 11/25/16 08:00 86 11/25/16 08:00 Nasal Cannula 3.00 11/25/16 08:00 98.0 80 20 163/85 100 11/25/16 04:00 98.7 72 15 142/83 98 11/25/16 04:00 72 11/25/16 03:53 14 11/25/16 00:59 10 11/25/16 00:00 98.6 82 6 145/87 99 11/25/16 00:00 82 11/24/16 22:27 98 Nasal Cannula 4.00 11/24/16 11/24/16 11/25/16 15:00 23:00 07:00 Intake Total 904 ml 720 ml 655 ml Output Total 1875 ml 1580 ml 1155 ml Balance -971 ml -860 ml -500 ml Intake Oral 660 ml 480 ml 480 ml IV Total 244 ml 240 ml 175 ml Output Urine Total 1800 ml 1500 ml 1100 ml Drainage Total 75 ml 80 ml 55 ml # Bowel Movements 1 2 1 . Laboratory Tests Test 11/24/16 11/25/16 11/25/16 11:16 04:00 20:45 White Blood Count 24.5 TH/MM3 25.5 TH/MM3 Red Blood Count 2.54 MIL/MM3 2.69 MIL/MM3 Hemoglobin 7.0 GM/DL 7.4 GM/DL Hematocrit 21.2 % 22.4 % Mean Corpuscular Volume 83.6 FL 83.2 FL Mean Corpuscular Hemoglobin 27.7 PG 27.4 PG Mean Corpuscular Hemoglobin 33.2 % 33.0 % Concent Red Cell Distribution Width 16.8 % 16.2 % Platelet Count 661 TH/MM3 722 TH/MM3 Mean Platelet Volume 6.8 FL 6.8 FL Neutrophils (%) (Auto) 85.3 % 84.9 % Lymphocytes (%) (Auto) 7.1 % 7.0 % Monocytes (%) (Auto) 5.5 % 6.0 % Eosinophils (%) (Auto) 0.9 % 1.2 % Basophils (%) (Auto) 1.2 % 0.9 % Neutrophils # (Auto) 20.9 TH/MM3 21.7 TH/MM3 Lymphocytes # (Auto) 1.7 TH/MM3 1.8 TH/MM3 Monocytes # (Auto) 1.4 TH/MM3 1.5 TH/MM3 Eosinophils # (Auto) 0.2 TH/MM3 0.3 TH/MM3 Basophils # (Auto) 0.3 TH/MM3 0.2 TH/MM3 CBC Comment AUTO DIFF AUTO DIFF Differential Total Cells 100 100 Counted Neutrophils % (Manual) 65 % 61 % Band Neutrophils % 13 % 16 % Lymphocytes % 10 % 7 % Monocytes % 10 % 7 % Eosinophils % 1 % 1 % Neutrophils # (Manual) 19.4 TH/MM3 21.4 TH/MM3 Myelocytes 1 % 6 % Differential Comment FINAL DIFF FINAL DIFF MANUAL MANUAL Platelet Estimate HIGH HIGH Platelet Morphology Comment NORMAL NORMAL Basophils % 1 % Metamyelocytes 1 % Basophilic Stippling FAINT Target Cells 1+ Blood Smear Pathologist Review Laboratory Tests Test 11/24/16 11/25/16 11/25/16 11:16 04:00 20:45 Sodium Level 148 MEQ/L 145 MEQ/L Potassium Level 4.7 MEQ/L 4.6 MEQ/L Chloride Level 113 MEQ/L 110 MEQ/L Carbon Dioxide Level 28.0 MEQ/L 27.8 MEQ/L Anion Gap 7 MEQ/L 7 MEQ/L Blood Urea Nitrogen 30 MG/DL 27 MG/DL Creatinine 1.87 MG/DL 1.83 MG/DL Estimat Glomerular Filtration 37 ML/MIN 38 ML/MIN Rate Random Glucose 80 MG/DL 91 MG/DL Calcium Level 8.9 MG/DL 8.6 MG/DL Phosphorus Level 3.4 MG/DL Magnesium Level 2.1 MG/DL Total Bilirubin 0.2 MG/DL Aspartate Amino Transf 19 U/L (AST/SGOT) Alanine Aminotransferase 24 U/L (ALT/SGPT) Alkaline Phosphatase 93 U/L Total Protein 6.0 GM/DL Albumin 1.8 GM/DL Ferritin 93 NG/ML C-Reactive Protein 1.90 MG/DL Imaging Last Impressions Renal Ultrasound 11/24/16 0000 Signed Impressions: Service Date/Time: November 09:51 - CONCLUSION: 1. Echogenic kidneys characteristic of medical renal disease. No hydronephrosis. Bladder unremarkable. William James MD Chest X-Ray 11/23/16 0600 Signed Impressions: Service Date/Time: Wednesday, November 23, 2016 04:13 - CONCLUSION: 1. Improving aeration in the left base with resolving atelectasis/effusion. 2. However, there is slight interval worsening of the atelectatic changes above the right hemidiaphragm. 3. Interstitial haziness suggesting some degree of vascular congestion or volume overload. Heart size remains prominent. 4. Stable position of life support tubes. Leo Newsome MD Lower Extremity Ultrasound 11/16/16 0000 Signed Impressions: Service Date/Time: Wednesday, November 16, 2016 22:30 - CONCLUSION: Normal examination. William James MD Physical Exam CONSTITUTIONAL/GENERAL: This is a morbidly obese female patient, in no apparent distress. TUBES/LINES/DRAINS: SKIN: No jaundice, rashes, or lesions. Large skin defect in L axilla/lateral chest area covered with VAC dressing; CARDIOVASCULAR: Regular rate and rhythm without murmurs, gallops, or rubs. No JVD. Peripheral pulses symmetric. RESPIRATORY/CHEST: Symmetric, unlabored respirations. Clear to auscultation. Breath sounds equal bilaterally. No wheezes, rales, or rhonchi. GASTROINTESTINAL: Abdomen soft, non-tender, nondistended. No hepato-splenomegaly , or palpable masses. No guarding. Bowel sounds present. GENITOURINARY: Without palpable bladder distension. Marvin catheter in place with clear urine MUSCULOSKELETAL: Extremities without clubbing, cyanosis, + edema. NEUROLOGICAL: awake alert ; follows commands; normal speech Assessment & Plan Remarks Nec fasciitis L axillae/chest area, polimicrobial mixed aerobic/anaeroic along with staph wide local excision of soft tissue infection in LEFT axilla, chest breast - last I+D /VAC change 11/21: report reviewed - no purulence or necrotic tissue clinically improving growing E.coli, MSSA, anaerob Acute VDRF, resolved Severe leukocytosis - persistent Diarrhea (5 BMs yday) - C.diff negative cont zosyn, rechk stool for C.diff anticipate eventual transition to po abx (levaqin + flagyl) fu WBC dw RN Rachel Marsh MD Nov 25, 2016 22:01
[2016-11-26] VITALS (11 sets, daily range): BP systolic 127–158; BP diastolic 64–85; PULSE 74–90; RESP 12–27; TEMP 98.4–98.9; O2SAT 94–100
[2016-11-26] MEDS: HYDROmorphone HCL PCA 6 MG/30 ML IV SCH ×3 (02:10→23:40)
[2016-11-26] MEDS: INSULIN ASPART SUPPLEMENTAL SCALE SQ SCH (03:15)
[2016-11-26 03:56] LABS: AUTOMATED NEUTROPHIL # 19.7 TH/MM3 (1.8-7.7); BASOPHIL # 0.2 TH/MM3 (0-0.2); BASOPHIL % 0.8 % (0.0-2.0); EOSINOPHIL # 0.3 TH/MM3 (0-0.4); EOSINOPHIL % 1.2 % (0.0-4.0); HEMATOCRIT 21.8 % (35.0-46.0); LYMPHOCYTE # 2.2 TH/MM3 (1.0-4.8); MEAN CELL VOLUME 84.2 FL (80.0-100.0); MEAN CORPUSCULAR HEMOGLOBIN 27.9 PG (27.0-34.0); MEAN CORPUSCULAR HGB CONC 33.1 % (32.0-36.0); PLATELET COUNT 704 TH/MM3 (150-450); RED BLOOD COUNT 2.59 MIL/MM3 (4.00-5.30); RED CELL DISTRIBUTION WIDTH 16.6 % (11.6-17.2)
[2016-11-26 03:57] LABS: HEMO FLAGS AUTO DIFF
[2016-11-26 04:23] LABS: BICARBONATE 29.2 MEQ/L (21.0-32.0); POTASSIUM 4.3 MEQ/L (3.5-5.1)
[2016-11-26] MEDS: CHLORHEXIDINE GLUCONATE 2 % 1 PACK (2 CLOTHS) TOP SCH (04:25)
[2016-11-26] MEDS: PIPERACIL-TAZO 3.375 GM PREMIX 50 ML IV SCH ×4 (05:00→23:15)
[2016-11-26] MEDS: PCA - TOTAL MG DILAUDID DELIVERED PER SHIFT SCH ×3 (05:03→21:24)
[2016-11-26] MEDS: CHLORHEXIDINE 0.12% (ORAL KIT) 15 ML CUP MT SCH ×2 (08:00→19:32)
[2016-11-26] MEDS ORDERED: hydrALAZINE HCL 20 MG/ML VIAL IV PRN (08:45)
[2016-11-26] MEDS ORDERED: NALOXONE HCL 0.4 MG/ML AMP IV PRN (08:45)
[2016-11-26] MEDS ORDERED: oxyCODONE/ACETAMINOPHEN 5 MG/325 MG TAB PO PRN (08:45)
--- NOTE | 2016-11-26 08:52 | HHI.PR ---
Subjective Remarks Consulted by critical care medicine for transfer to medical management. Chart reviewed. Case discussed with RN. Follow-up necrotizing fasciitis. 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 Willing to try by mouth medications. Counseled regarding narcotics. Objective Vitals Vital Signs Date Time Temp Pulse Resp B/P Pulse Ox O2 Delivery O2 Flow Rate FiO2 11/26/16 06:00 74 11/26/16 05:03 15 11/26/16 04:00 98.5 87 15 157/85 94 11/26/16 04:00 87 11/26/16 02:40 15 11/26/16 02:10 15 11/26/16 02:00 88 11/26/16 00:00 98.9 89 12 158/80 99 11/26/16 00:00 89 11/25/16 22:00 90 11/25/16 21:35 98 11/25/16 21:32 10 11/25/16 20:00 87 11/25/16 20:00 99.0 88 10 143/85 98 11/25/16 19:00 97 Room Air 11/25/16 18:00 108 11/25/16 16:00 98.2 90 20 146/84 96 11/25/16 16:00 100 11/25/16 14:44 12 11/25/16 14:00 104 11/25/16 14:00 12 11/25/16 12:00 98.3 90 14 147/71 97 11/25/16 12:00 90 11/25/16 11:00 Room Air 11/25/16 10:00 124 I/O 11/25/16 11/25/16 11/25/16 11/26/16 11/26/16 11/26/16 07:00 15:00 23:00 07:00 15:00 23:00 Intake Total 655 ml 942 ml 681 ml 688 ml Output Total 1155 ml 1095 ml 1240 ml 1240 ml Balance -500 ml -153 ml -559 ml -552 ml Intake Oral 480 ml 720 ml 480 ml 480 ml IV Total 175 ml 222 ml 201 ml 208 ml Output Urine Total 1100 ml 1000 ml 1200 ml 1200 ml Drainage Total 55 ml 95 ml 40 ml 40 ml # Bowel Movements 1 2 Result Diagram: 11/26/16 0340 11/26/16 0340 Imaging Last Impressions Renal Ultrasound 11/24/16 0000 Signed Impressions: Service Date/Time: November 09:51 - CONCLUSION: 1. Echogenic kidneys characteristic of medical renal disease. No hydronephrosis. Bladder unremarkable. William James MD Chest X-Ray 11/23/16 0600 Signed Impressions: Service Date/Time: Wednesday, November 23, 2016 04:13 - CONCLUSION: 1. Improving aeration in the left base with resolving atelectasis/effusion. 2. However, there is slight interval worsening of the atelectatic changes above the right hemidiaphragm. 3. Interstitial haziness suggesting some degree of vascular congestion or volume overload. Heart size remains prominent. 4. Stable position of life support tubes. Leo Newsome MD Lower Extremity Ultrasound 11/16/16 0000 Signed Impressions: Service Date/Time: Wednesday, November 16, 2016 22:30 - CONCLUSION: Normal examination. William James MD Objective Remarks GENERAL: 36-year-old obese female resting in bed on room air SKIN: Warm and dry. No rash HEAD: Atraumatic. Normocephalic. EYES: Pupils equal and round around 3 mm bilaterally and reactive. No scleral icterus. No injection or drainage. ENT: No nasal bleeding or discharge. Mucous membranes pink and moist. NECK: Trachea midline. No JVD. CARDIOVASCULAR: Regular rate and rhythm. S1, S2. No S4. No murmurs rubs or gallops. RESPIRATORY: Distant breath sounds due to body habitus. Clear to auscultation. Breath sounds equal bilaterally. No wheezing or crackles GASTROINTESTINAL: Abdomen soft, non-tender, protuberant. Normoactive bowel sounds MUSCULOSKELETAL: Extremities with minimal leg edema. Wound VAC in place in left chest with minimal erythema. VASC: Right IJ central venous line in place with dressing clean/dry/intact. NEUROLOGICAL: Cranial nerves II through XII grossly intact. Strength equal and symmetric. Normal sensation. Procedures Right IJ central line 3/2 Excision and debridement necrotizing soft tissue infection, left axilla 40 x 25 cm. 3/5 Vac change with irrigation and debridement of large necrotizing fasciitis wound. 11/22 1. Partial closure of large open wound. 2. I&D large complex wound. 3. Replacement of VAC. 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 Add Percocet. Counseled regarding narcotics RESP: Acute hypoxemic respiratory failure/postop Nasal cannula to maintain saturations greater than equal to 92% note currently in room air Incentive spirometry while awake CV: Septic shock - resolved History of hypertension Chronic lymphedema On metoprolol 25 twice a day at home which will be resumed. On metolazone 5 mg daily for chronic lymphedema. Hold diuresis for now secondary to acute kidney injury GI: Morbid obesity Heart healthy diet Protonix for GI prophylaxis Colace/as needed Senokot for bowel regimen FEN/RENAL: Hypokalemia Marvin in place. Monitor intake and output. We'll discontinue Marvin once patient out of bed ID: Septic shock Necrotizing fasciitis left axilla/chest wall /breast. Status post debridement of the chest wall, axilla and back by Dr. morales 11/16/16 with wound VAC placement. Returned to OR for further debridement Empiric coverage with Zosyn. Infectious disease consult. Blood cultures no growth Intraoperative wound culture staph aureus, Escherichia coli CXR with multifocal opacities. Follow-up C. difficile studies HEME: Leukocytosis Normocytic anemia Thrombocytosis - likely reactive secondary to infection/inflammation Bilateral lower ultrasound negative for DVT 11/16/16. Transfused 2 units of PRBCs on 11/18 for hemoglobin of 7. Check CBC in AM. Follow trends with elevated white blood cell count and crp and peripheral smear and fibrinogen have been ordered/acute phase reactants ENDO: Hyperglycemia of critical illness. Stable Discontinue sliding scale every 6 hours. PROPH: Protonix 40 mg daily for stress ulcer prophylaxis. Heparin for DVT prophylaxis when okay with general surgery. ACCESS: Right IJ central venous line placed in OR 11/16/16. We'll tentatively discontinue soon once 2 peripheral IVs placed Discharge Planning Stable medical transfer to floor if okay with general surgery Victor Hugo Mahan MD Nov 26, 2016 08:52
[2016-11-26] MEDS: DOCUSATE SODIUM 100 MG CAP TUBE SCH ×2 (09:00→19:37)
[2016-11-26] MEDS ORDERED: ASPIRIN 81 MG CHEW TAB CHEW SCH (09:00)
[2016-11-26] MEDS ORDERED: INSULIN ASPART SUPPLEMENTAL SCALE SQ SCH (09:00)
[2016-11-26 09:56] LABS: BANDS 5 % (0-6); BASOPHILS 1 % (0-2); MYELOCYTES 3 % (0-0); NEUTROPHIL # MANUAL DIFF 20.9 TH/MM3 (1.8-7.7); POLYS (SEG NEUTROPHILS) 79 % (16-70); WBC DIFF SAMPLE 100
[2016-11-26 09:57] LABS: PLATELET ESTIMATE SMEAR HIGH (NORMAL); PLATELET MORPHOLOGY NORMAL (NORMAL); SCAN/DIFF FINAL DIFF MANUAL
[2016-11-26] MEDS: LACTOBACILLUS ACIDOPHILUS TAB PO SCH ×3 (11:00→18:06)
[2016-11-26] MEDS: HEPARIN SODIUM - SQ 10,000 UNITS/ML VIAL SQ SCH ×3 (11:00→23:15)
[2016-11-26] MEDS: PANTOPRAZOLE SOD 40 MG DELAYED RELEASE TAB PO SCH (11:00)
[2016-11-26] MEDS: METOPROLOL TARTRATE 25 MG TAB PO SCH ×2 (11:00→19:37)
[2016-11-26] MEDS: SODIUM CHLORIDE 0.9% FLUSH 5 ML FLUSH IV FLUSH SCH ×2 (11:00→19:38)
[2016-11-27] VITALS (10 sets, daily range): BP systolic 125–172; BP diastolic 70–105; PULSE 67–91; RESP 10–18; TEMP 98.3–98.8; O2SAT 99–100
[2016-11-27] MEDS: CHLORHEXIDINE GLUCONATE 2 % 1 PACK (2 CLOTHS) TOP SCH (03:20)
[2016-11-27 04:47] LABS: AUTOMATED NEUTROPHIL # 19.2 TH/MM3 (1.8-7.7); BASOPHIL # 0.3 TH/MM3 (0-0.2); BASOPHIL % 1.2 % (0.0-2.0); EOSINOPHIL # 0.3 TH/MM3 (0-0.4); EOSINOPHIL % 1.5 % (0.0-4.0); HEMATOCRIT 24.2 % (35.0-46.0); LYMPH % 7.9 % (9.0-44.0); LYMPHOCYTE # 1.8 TH/MM3 (1.0-4.8); MEAN CELL VOLUME 85.8 FL (80.0-100.0); MEAN CORPUSCULAR HEMOGLOBIN 27.4 PG (27.0-34.0); MONO % 6.2 % (0.0-8.0); NEUT % 83.2 % (16.0-70.0); PLATELET COUNT 721 TH/MM3 (150-450); RED BLOOD COUNT 2.83 MIL/MM3 (4.00-5.30); RED CELL DISTRIBUTION WIDTH 16.6 % (11.6-17.2)
[2016-11-27 04:49] LABS: HEMO FLAGS AUTO DIFF
[2016-11-27 04:58] LABS: POTASSIUM 4.5 MEQ/L (3.5-5.1)
[2016-11-27 05:41] LABS: BANDS 1 % (0-6); BASOPHILS 1 % (0-2); EOSINOPHILS 1 % (0-4); MYELOCYTES 4 % (0-0); NEUTROPHIL # MANUAL DIFF 21.2 TH/MM3 (1.8-7.7); POLYS (SEG NEUTROPHILS) 87 % (16-70); WBC DIFF SAMPLE 100
[2016-11-27 05:42] LABS: OVALOCYTES 1+ (NORMAL); PLATELET ESTIMATE SMEAR HIGH (NORMAL)
[2016-11-27 05:43] LABS: PLATELET MORPHOLOGY NORMAL (NORMAL); SCAN/DIFF FINAL DIFF MANUAL
[2016-11-27] MEDS: PIPERACIL-TAZO 3.375 GM PREMIX 50 ML IV SCH ×4 (06:15→23:06)
[2016-11-27] MEDS: PCA - TOTAL MG DILAUDID DELIVERED PER SHIFT SCH ×3 (06:15→22:00)
[2016-11-27] MEDS: METOPROLOL TARTRATE 25 MG TAB PO SCH ×2 (07:52→20:28)
[2016-11-27] MEDS: PANTOPRAZOLE SOD 40 MG DELAYED RELEASE TAB PO SCH (07:52)
[2016-11-27] MEDS: CHLORHEXIDINE 0.12% (ORAL KIT) 15 ML CUP MT SCH ×2 (07:52→20:00)
[2016-11-27] MEDS: HEPARIN SODIUM - SQ 10,000 UNITS/ML VIAL SQ SCH ×3 (07:52→23:06)
[2016-11-27] MEDS: SODIUM CHLORIDE 0.9% FLUSH 5 ML FLUSH IV FLUSH SCH ×2 (07:52→20:37)
[2016-11-27] MEDS: LACTOBACILLUS ACIDOPHILUS TAB PO SCH ×3 (07:52→17:09)
[2016-11-27] MEDS: DOCUSATE SODIUM 100 MG CAP TUBE SCH ×2 (07:52→21:00)
[2016-11-27] MEDS: SODIUM CHLOR 0.9% 1000 ML INJ 1,000 ML IV SCH ×2 (09:00→17:10)
--- NOTE | 2016-11-27 10:01 | HHI.PR ---
Subjective Remarks Follow-up necrotizing fasciitis. No BM today. BP elevated. Denies MADDEN or dizziness. Discussed with RN Objective Vitals Vital Signs Date Time Temp Pulse Resp B/P Pulse Ox O2 Delivery O2 Flow Rate FiO2 11/27/16 08:39 100 21 11/27/16 08:00 72 11/27/16 08:00 100 Room Air 11/27/16 08:00 98.4 72 16 172/105 99 11/27/16 06:15 15 11/27/16 06:00 81 11/27/16 04:00 98.8 75 10 141/81 99 11/27/16 04:00 75 11/27/16 02:00 90 11/27/16 00:33 12 11/27/16 00:00 98.5 67 12 125/70 100 11/27/16 00:00 67 11/26/16 23:40 11 11/26/16 23:09 13 11/26/16 22:00 90 11/26/16 21:24 20 11/26/16 20:44 98 11/26/16 20:00 86 11/26/16 20:00 98.9 86 27 135/74 100 11/26/16 19:00 100 Room Air 11/26/16 16:00 80 11/26/16 16:00 98.5 80 14 130/64 100 11/26/16 12:00 85 11/26/16 12:00 98.5 85 14 127/77 100 11/26/16 11:36 16 11/26/16 11:21 16 I/O 11/26/16 11/26/16 11/26/16 11/27/16 11/27/16 11/27/16 07:00 15:00 23:00 07:00 15:00 23:00 Intake Total 688 ml 1000 ml 892 ml 442 ml Output Total 1240 ml 970 ml 1030 ml 815 ml Balance -552 ml 30 ml -138 ml -373 ml Intake Oral 480 ml 760 ml 720 ml 240 ml IV Total 208 ml 240 ml 172 ml 202 ml Output Urine Total 1200 ml 850 ml 1000 ml 750 ml Drainage Total 40 ml 120 ml 30 ml 65 ml # Bowel Movements 0 1 Result Diagram: 11/27/16 0339 11/27/16338 Objective Remarks GENERAL: 36-year-old obese female resting in bed on room air SKIN: Warm and dry. No rash HEAD: Atraumatic. Normocephalic. EYES: Pupils equal and round around 3 mm bilaterally and reactive. No scleral icterus. No injection or drainage. ENT: No nasal bleeding or discharge. Mucous membranes pink and moist. NECK: Trachea midline. No JVD. CARDIOVASCULAR: Regular rate and rhythm. S1, S2. No S4. No murmurs rubs or gallops. RESPIRATORY: Distant breath sounds due to body habitus. Clear to auscultation. Breath sounds equal bilaterally. No wheezing or crackles GASTROINTESTINAL: Abdomen soft, non-tender, protuberant. Normoactive bowel sounds MUSCULOSKELETAL: Extremities with minimal leg edema. Wound VAC in place in left chest with minimal erythema. NEUROLOGICAL: Cranial nerves II through XII grossly intact. Strength equal and symmetric. Normal sensation. Procedures Right IJ central line 3/ Excision and debridement necrotizing soft tissue infection, left axilla 40 x 25 cm. 11/20 Vac change with irrigation and debridement of large necrotizing fasciitis wound. 11/22 1. Partial closure of large open wound. 2. I&D large complex wound. 3. Replacement of VAC. 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 Continue Percocet. Counseled regarding narcotics RESP: Acute hypoxemic respiratory failure/postop Nasal cannula to maintain saturations greater than equal to 92% note currently in room air Incentive spirometry while awake CV: Septic shock - resolved History of hypertension Chronic lymphedema On metoprolol 25 twice a day at home which will be resumed. On metolazone 5 mg daily for chronic lymphedema. Hold diuresis for now secondary to acute kidney injury GI: Morbid obesity Heart healthy diet Protonix for GI prophylaxis Colace/as needed Senokot for bowel regimen FEN/RENAL: Hypokalemia BLESSING Start IV fluids. Renal sonogram with no obstruction. If no improvement consider renal consult. Marvin in place. Monitor intake and output. We'll discontinue Mravin once patient out of bed ID: Septic shock Necrotizing fasciitis left axilla/chest wall /breast. Status post debridement of the chest wall, axilla and back by Dr. Lainez 11/16/16 with wound VAC placement. Returned to OR for further debridement Empiric coverage with Zosyn. Infectious disease consult. Blood cultures no growth Intraoperative wound culture staph aureus, Escherichia coli CXR with multifocal opacities. Follow-up C. difficile study patient without BM today HEME: Leukocytosis Normocytic anemia Thrombocytosis - likely reactive secondary to infection/inflammation Bilateral lower ultrasound negative for DVT 11/16/16. Transfused 2 units of PRBCs on 11/18 for hemoglobin of 7. Check CBC in AM. Follow trends with elevated white blood cell count and crp and peripheral smear and fibrinogen have been ordered/acute phase reactants. Persistent leukocytosis right IJ central line removed ENDO: Hyperglycemia of critical illness. Stable Discontinue sliding scale every 6 hours. PROPH: Protonix 40 mg daily for stress ulcer prophylaxis. Heparin for DVT prophylaxis when okay with general surgery. Discharge Planning Stable medical transfer to floor if okay with general surgery Victor Hugo Mahan MD Nov 27, 2016 10:01
[2016-11-27] MEDS: hydrALAZINE HCL 25 MG TAB PO SCH ×2 (10:32→20:28)
[2016-11-27] MEDS: HYDROmorphone HCL PCA 6 MG/30 ML IV SCH ×2 (12:26→23:12)
[2016-11-27] MEDS: oxyCODONE/ACETAMINOPHEN 10 MG/325 MG TAB PO PRN ×2 (12:27→20:28)
[2016-11-27] MEDS: hydrOXYzine PAMOATE 25 MG CAP PO PRN (23:05)
[2016-11-28] VITALS (12 sets, daily range): BP systolic 134–163; BP diastolic 76–92; PULSE 73–95; RESP 15–25; TEMP 96.9–98.7; O2SAT 95–100
[2016-11-28] MEDS: SODIUM CHLOR 0.9% 1000 ML INJ 1,000 ML IV SCH (02:33)
[2016-11-28] MEDS: CHLORHEXIDINE GLUCONATE 2 % 1 PACK (2 CLOTHS) TOP SCH (04:00)
[2016-11-28 04:13] LABS: AUTOMATED NEUTROPHIL # 18.2 TH/MM3 (1.8-7.7); BASOPHIL # 0.2 TH/MM3 (0-0.2); BASOPHIL % 0.7 % (0.0-2.0); EOSINOPHIL # 0.3 TH/MM3 (0-0.4); EOSINOPHIL % 1.4 % (0.0-4.0); HEMATOCRIT 21.7 % (35.0-46.0); LYMPH % 8.5 % (9.0-44.0); LYMPHOCYTE # 1.9 TH/MM3 (1.0-4.8); MEAN CORPUSCULAR HGB CONC 32.9 % (32.0-36.0); MONO % 7.2 % (0.0-8.0); NEUT % 82.2 % (16.0-70.0); PLATELET COUNT 654 TH/MM3 (150-450); RED BLOOD COUNT 2.56 MIL/MM3 (4.00-5.30); RED CELL DISTRIBUTION WIDTH 16.9 % (11.6-17.2); WHITE BLOOD COUNT 22.1 TH/MM3 (4.0-11.0)
[2016-11-28 04:19] LABS: HEMO FLAGS AUTO DIFF
[2016-11-28 04:37] LABS: BICARBONATE 25.4 MEQ/L (21.0-32.0); MAGNESIUM 1.9 MG/DL (1.5-2.5); POTASSIUM 4.4 MEQ/L (3.5-5.1)
[2016-11-28] MEDS: PCA - TOTAL MG DILAUDID DELIVERED PER SHIFT SCH ×3 (06:00→21:03)
[2016-11-28 06:06] LABS: BANDS 14 % (0-6); MYELOCYTES 1 % (0-0); NEUTROPHIL # MANUAL DIFF 20.3 TH/MM3 (1.8-7.7); POLYS (SEG NEUTROPHILS) 77 % (16-70); SCAN/DIFF FINAL DIFF MANUAL; WBC DIFF SAMPLE 100
[2016-11-28 06:07] LABS: PLATELET ESTIMATE SMEAR HIGH (NORMAL); PLATELET MORPHOLOGY NORMAL (NORMAL)
[2016-11-28] MEDS: PIPERACIL-TAZO 3.375 GM PREMIX 50 ML IV SCH ×3 (06:23→17:15)
[2016-11-28] MEDS: CHLORHEXIDINE 0.12% (ORAL KIT) 15 ML CUP MT SCH ×2 (08:00→20:00)
[2016-11-28] MEDS: SODIUM CHLORIDE 0.9% FLUSH 5 ML FLUSH IV FLUSH SCH ×2 (09:00→21:00)
[2016-11-28] MEDS: hydrALAZINE HCL 25 MG TAB PO SCH ×2 (10:07→21:04)
[2016-11-28] MEDS: LACTOBACILLUS ACIDOPHILUS TAB PO SCH ×3 (10:07→17:14)
[2016-11-28] MEDS: HEPARIN SODIUM - SQ 10,000 UNITS/ML VIAL SQ SCH ×2 (10:07→17:14)
[2016-11-28] MEDS: METOPROLOL TARTRATE 25 MG TAB PO SCH ×2 (10:07→21:04)
[2016-11-28] MEDS: DOCUSATE SODIUM 100 MG CAP TUBE SCH ×2 (10:07→21:00)
[2016-11-28] MEDS: PANTOPRAZOLE SOD 40 MG DELAYED RELEASE TAB PO SCH (10:07)
[2016-11-28] MEDS: oxyCODONE/ACETAMINOPHEN 10 MG/325 MG TAB PO PRN (10:07)
[2016-11-28] MEDS: HYDROmorphone HCL PCA 6 MG/30 ML IV SCH ×2 (10:09→21:00)
--- NOTE | 2016-11-28 11:33 | HHI.PR ---
Subjective Remarks Follow-up necrotizing fasciitis. Wound VAC being changed. Discussed with her surgery may be transferred to floor if tolerating IV Dilaudid as premed instead of fentanyl IV. Formed stool today. Objective Vitals Vital Signs Date Time Temp Pulse Resp B/P Pulse Ox O2 Delivery O2 Flow Rate FiO2 11/28/16 10:09 16 11/28/16 08:24 97 Nasal Cannula 21 11/28/16 06:00 75 11/28/16 04:00 76 11/28/16 04:00 98.7 76 16 153/92 100 11/28/16 02:00 74 11/28/16 00:00 98.4 78 25 143/77 100 11/28/16 00:00 78 11/27/16 22:00 72 11/27/16 20:00 91 11/27/16 20:00 98.4 91 18 137/70 99 11/27/16 16:00 98.3 87 15 157/97 100 11/27/16 16:00 87 11/27/16 13:58 15 11/27/16 13:27 15 11/27/16 12:56 16 11/27/16 12:26 16 11/27/16 12:00 98.4 85 16 146/83 100 11/27/16 12:00 85 I/O 11/27/16 11/27/16 11/27/16 11/28/16 11/28/16 11/28/16 07:00 15:00 23:00 07:00 15:00 23:00 Intake Total 442 ml 1534 ml 2962 ml 1000 ml Output Total 815 ml 756 ml 1015 ml 750 ml Balance -373 ml 778 ml 1947 ml 250 ml Intake Oral 240 ml 980 ml 2060 ml 1000 ml IV Total 202 ml 554 ml 902 ml Output Urine Total 750 ml 650 ml 900 ml 750 ml Drainage Total 65 ml 106 ml 115 ml # Bowel Movements 1 1 1 Result Diagram: 11/28/16 0338 11/28/16 0347 Objective Remarks GENERAL: 36-year-old obese female resting in bed on room air SKIN: Warm and dry. No rash HEAD: Atraumatic. Normocephalic. EYES: Pupils equal and round around 3 mm bilaterally and reactive. No scleral icterus. No injection or drainage. ENT: No nasal bleeding or discharge. Mucous membranes pink and moist. NECK: Trachea midline. No JVD. CARDIOVASCULAR: Regular rate and rhythm. S1, S2. No S4. No murmurs rubs or gallops. RESPIRATORY: Distant breath sounds due to body habitus. Clear to auscultation. Breath sounds equal bilaterally. No wheezing or crackles GASTROINTESTINAL: Abdomen soft, non-tender, protuberant. Normoactive bowel sounds MUSCULOSKELETAL: Extremities with minimal leg edema. Wound VAC in left chest NEUROLOGICAL: Cranial nerves II through XII grossly intact. Strength equal and symmetric. Normal sensation. Procedures Right IJ central line 3/ Excision and debridement necrotizing soft tissue infection, left axilla 40 x 25 cm. 11/20 Vac change with irrigation and debridement of large necrotizing fasciitis wound. 11/22 1. Partial closure of large open wound. 2. I&D large complex wound. 3. Replacement of VAC. 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 Continue Percocet. Counseled regarding narcotics RESP: Acute hypoxemic respiratory failure/postop Nasal cannula to maintain saturations greater than equal to 92% note currently in room air Incentive spirometry while awake CV: Septic shock - resolved History of hypertension Chronic lymphedema On metoprolol 25 twice a day at home which will be resumed. On metolazone 5 mg daily for chronic lymphedema. Hold diuresis for now secondary to acute kidney injury GI: Morbid obesity Heart healthy diet Protonix for GI prophylaxis Colace/as needed Senokot for bowel regimen FEN/RENAL: Hypokalemia BLESSING Slight improvement. Continue IV fluids. Renal sonogram with no obstruction. If no improvement consider renal consult. Marvin in place. Monitor intake and output. We'll discontinue Marvin once patient out of bed ID: Septic shock Necrotizing fasciitis left axilla/chest wall /breast. Status post debridement of the chest wall, axilla and back by Dr. Lainez 11/16/16 with wound VAC placement. Returned to OR for further debridement Empiric coverage with Zosyn. Infectious disease consult. Blood cultures no growth but still with significant leukocytosis with discussed with ID Intraoperative wound culture staph aureus, Escherichia coli CXR with multifocal opacities. Follow-up C. difficile study patient with formed BM today HEME: Leukocytosis Normocytic anemia Thrombocytosis - likely reactive secondary to infection/inflammation Bilateral lower ultrasound negative for DVT 11/16/16. Transfused 2 units of PRBCs on 11/18 for hemoglobin of 7. Check CBC in AM. Follow trends with elevated white blood cell count and crp and peripheral smear and fibrinogen have been ordered/acute phase reactants. Persistent leukocytosis right IJ central line removed ENDO: Hyperglycemia of critical illness. Stable Discontinue sliding scale every 6 hours. PROPH: Protonix 40 mg daily for stress ulcer prophylaxis. Heparin for DVT prophylaxis when okay with general surgery. Discharge Planning Stable medical transfer floor Victor Hugo Mahan MD Nov 28, 2016 11:33
[2016-11-28] MEDS ORDERED: HYDROmorphone HCL PF 1 MG/ML VIAL IV PUSH PRN ×2 (12:00)
[2016-11-29] VITALS (7 sets, daily range): BP systolic 128–180; BP diastolic 80–99; PULSE 76–100; RESP 16–22; TEMP 97–98.4; O2SAT 93–99
[2016-11-29] MEDS: oxyCODONE/ACETAMINOPHEN 10 MG/325 MG TAB PO PRN ×4 (00:05→23:09)
[2016-11-29] MEDS: hydrOXYzine PAMOATE 25 MG CAP PO PRN (00:06)
[2016-11-29] MEDS: PIPERACIL-TAZO 3.375 GM PREMIX 50 ML IV SCH ×5 (00:07→23:02)
[2016-11-29] MEDS: HEPARIN SODIUM - SQ 10,000 UNITS/ML VIAL SQ SCH ×4 (00:07→23:09)
[2016-11-29] MEDS: CHLORHEXIDINE GLUCONATE 2 % 1 PACK (2 CLOTHS) TOP SCH (00:07)
[2016-11-29] MEDS: SODIUM CHLOR 0.9% 1000 ML INJ 1,000 ML IV SCH (05:19)
[2016-11-29] MEDS: PCA - TOTAL MG DILAUDID DELIVERED PER SHIFT SCH ×3 (05:20→22:00)
[2016-11-29 05:43] LABS: AUTOMATED NEUTROPHIL # 15.9 TH/MM3 (1.8-7.7); BASOPHIL # 0.2 TH/MM3 (0-0.2); BASOPHIL % 1.1 % (0.0-2.0); EOSINOPHIL # 0.4 TH/MM3 (0-0.4); HEMATOCRIT 21.4 % (35.0-46.0); LYMPH % 10.3 % (9.0-44.0); LYMPHOCYTE # 2.1 TH/MM3 (1.0-4.8); MEAN CELL VOLUME 85.1 FL (80.0-100.0); MEAN CORPUSCULAR HEMOGLOBIN 28.6 PG (27.0-34.0); MEAN CORPUSCULAR HGB CONC 33.6 % (32.0-36.0); MONO % 7.3 % (0.0-8.0); NEUT % 79.3 % (16.0-70.0); PLATELET COUNT 621 TH/MM3 (150-450); RED BLOOD COUNT 2.52 MIL/MM3 (4.00-5.30); RED CELL DISTRIBUTION WIDTH 17.6 % (11.6-17.2)
[2016-11-29 06:05] LABS: HEMO FLAGS AUTO DIFF
[2016-11-29 06:07] LABS: BICARBONATE 25.1 MEQ/L (21.0-32.0); MAGNESIUM 1.9 MG/DL (1.5-2.5); POTASSIUM 4.3 MEQ/L (3.5-5.1)
[2016-11-29] MEDS: CHLORHEXIDINE 0.12% (ORAL KIT) 15 ML CUP MT SCH ×2 (08:00→20:00)
[2016-11-29 08:02] LABS: BANDS 2 % (0-6); BASOPHILS 2 % (0-2); EOSINOPHILS 2 % (0-4); METAMYELOCYTES 1 % (0-1); PLATELET ESTIMATE SMEAR HIGH (NORMAL); PLATELET MORPHOLOGY NORMAL (NORMAL); POLYS (SEG NEUTROPHILS) 82 % (16-70); SCAN/DIFF FINAL DIFF MANUAL; WBC DIFF SAMPLE 100
[2016-11-29] MEDS: SODIUM CHLORIDE 0.9% FLUSH 5 ML FLUSH IV FLUSH SCH ×2 (09:00→21:00)
[2016-11-29] MEDS: DOCUSATE SODIUM 100 MG CAP TUBE SCH ×2 (09:29→21:00)
[2016-11-29] MEDS: METOPROLOL TARTRATE 25 MG TAB PO SCH ×2 (09:29→21:03)
[2016-11-29] MEDS: hydrALAZINE HCL 25 MG TAB PO SCH ×2 (09:29→21:03)
[2016-11-29] MEDS: PANTOPRAZOLE SOD 40 MG DELAYED RELEASE TAB PO SCH (09:30)
[2016-11-29] MEDS: LACTOBACILLUS ACIDOPHILUS TAB PO SCH ×3 (09:30→16:59)
--- NOTE | 2016-11-29 11:35 | HHI.PR ---
Subjective Remarks Follow-up necrotizing fasciitis. She has no new complaints. Try to get out of bed today. Discussed with RN Objective Vitals Vital Signs Date Time Temp Pulse Resp B/P Pulse Ox O2 Delivery O2 Flow Rate FiO2 11/29/16 08:37 98.4 90 16 137/86 98 11/29/16 05:20 14 11/29/16 04:00 98.0 76 20 128/80 96 11/29/16 00:00 98.2 80 20 131/84 97 11/28/16 21:03 14 11/28/16 21:00 14 11/28/16 20:00 76 11/28/16 20:00 97.7 78 20 134/81 98 11/28/16 18:12 96.9 86 18 163/92 100 11/28/16 16:00 82 11/28/16 16:00 98.2 82 20 134/77 95 11/28/16 14:00 85 11/28/16 14:00 16 11/28/16 12:00 98.0 87 23 162/77 96 11/28/16 12:00 87 I/O 11/28/16 11/28/16 11/28/16 11/29/16 11/29/16 11/29/16 07:00 15:00 23:00 07:00 15:00 23:00 Intake Total 1000 ml 1761 ml 717 ml 936 ml Output Total 750 ml 855 ml 850 ml 605 ml Balance 250 ml 906 ml -133 ml 331 ml Intake Oral 1000 ml 960 ml 480 ml 640 ml IV Total 801 ml 237 ml 296 ml Output Urine Total 750 ml 800 ml 750 ml 500 ml Drainage Total 55 ml 100 ml 105 ml # Bowel Movements 1 1 0 0 Result Diagram: 11/29/1644511/29/16445 Objective Remarks GENERAL: 36-year-old obese female resting in bed on room air SKIN: Warm and dry. No rash HEAD: Atraumatic. Normocephalic. EYES: Pupils equal and round around 3 mm bilaterally and reactive. No scleral icterus. No injection or drainage. ENT: No nasal bleeding or discharge. Mucous membranes pink and moist. NECK: Trachea midline. No JVD. CARDIOVASCULAR: Regular rate and rhythm. S1, S2. No S4. No murmurs rubs or gallops. RESPIRATORY: Distant breath sounds due to body habitus. Clear to auscultation. Breath sounds equal bilaterally. No wheezing or crackles GASTROINTESTINAL: Abdomen soft, non-tender, protuberant. Normoactive bowel sounds MUSCULOSKELETAL: Extremities with minimal leg edema. Wound VAC in left chest NEUROLOGICAL: Cranial nerves II through XII grossly intact. Strength equal and symmetric. Normal sensation. Nonfocal Procedures Right IJ central line 11/17 Excision and debridement necrotizing soft tissue infection, left axilla 40 x 25 cm. 11/20 Vac change with irrigation and debridement of large necrotizing fasciitis wound. 11/22 1. Partial closure of large open wound. 2. I&D large complex wound. 3. Replacement of VAC. 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 Continue Percocet. Counseled regarding narcotics RESP: Acute hypoxemic respiratory failure/postop Nasal cannula to maintain saturations greater than equal to 92% note currently in room air Incentive spirometry while awake CV: Septic shock - resolved History of hypertension Chronic lymphedema On metoprolol 25 twice a day at home which will be resumed. On metolazone 5 mg daily for chronic lymphedema. Hold diuresis for now secondary to acute kidney injury GI: Morbid obesity Heart healthy diet Protonix for GI prophylaxis Colace/as needed Senokot for bowel regimen FEN/RENAL: Hypokalemia BLESSING Creatinine not improving. Continue IV fluids. Renal sonogram with no obstruction. Consult renal Marvin in place. Monitor intake and output. We'll discontinue Marvin once patient out of bed ID: Septic shock Necrotizing fasciitis left axilla/chest wall /breast. Status post debridement of the chest wall, axilla and back by Dr. Lainez 11/16/16 with wound VAC placement. Returned to OR for further debridement Empiric coverage with Zosyn. Infectious disease consult. Blood cultures no growth but still with significant leukocytosis will alert ID Intraoperative wound culture staph aureus, Escherichia coli CXR with multifocal opacities. Follow-up C. difficile study patient with formed BM today HEME: Leukocytosis Normocytic anemia Thrombocytosis - likely reactive secondary to infection/inflammation Bilateral lower ultrasound negative for DVT 11/16/16. Transfused 2 units of PRBCs on 11/18 for hemoglobin of 7. Check CBC in AM. Follow trends with elevated white blood cell count and crp and peripheral smear and fibrinogen have been ordered/acute phase reactants. Persistent leukocytosis right IJ central line removed ENDO: Hyperglycemia of critical illness. Stable Discontinue sliding scale every 6 hours. PROPH: Protonix 40 mg daily for stress ulcer prophylaxis. Heparin for DVT prophylaxis Victor Hugo Mahan MD Nov 29, 2016 11:35
--- NOTE | 2016-11-29 16:57 | PD.CONS ---
[facility] Service Nephrology Consult Requested By Reason for Consult Acute Renal failure Primary Care Physician Jimmie Gutierrez History of Present Illness This is a morbidly obese AAF pt who was admitted on 11/16 with left axillary infection. She was taken to OR for excision of necrotizing fascitis, a wound vac was placed, and she was intubated and maintained in ICU. This past week she was weened off the ventilator and transferred out of ICU. Her renal function was normal on arrival, 0.91. On 11/18 her creatinine measured 1.94, peaked at 2.56 , and is now running 1.8. there are no electrolyte disturbances. Renal US negative for obstruction, she has a bajwa and adequate urine output. PMH of HTN , lymphedema of lower extremities, she was out of her diuretic for weeks prior to admission. She is on 0.9% NS at 30 cc/hr, she has ENVELOPE ADDRESSER of Dilaudid, has extensive fluid overload. We were consulted for management. She is on Zosyn, being treated for UTI. Her vancomycin levels were extremely high on 11/18. ( Amy Fernandes) Review of Systems Constitutional: DENIES: Fatigue, Fever Cardiovascular: COMPLAINS OF: Lower Extremity Edema Gastrointestinal: DENIES: Nausea Musculoskeletal: COMPLAINS OF: Muscle aches (Amy Fernandes) Past Family Social History Allergies: Coded Allergies: No Known Allergies (Unverified , 11/16/16) Past Medical History HTN morbid obesity lymphedema Past Surgical History no prior surgeries Reported Medications She was unable to fill her meds prior to arrival, ordered metolazone metoprolol KCL trazodone Advil Tylenol Flexeril Active Ordered Medications Current Medications Medications (Trade) Dose Ordered Sig/Candida Route Start Time Stop Time Status Last Admin (Peridex 0.12% Liq) 15 ml BID@08,20 MT 11/17/16 08:00 11/23/16 23:45 (NS Flush) 2 ml UNSCH PRN IV FLUSH 11/16/16 23:00 (NS Flush) 2 ml BID IV FLUSH 11/17/16 09:00 11/27/16 20:37 (Zofran Inj) 4 mg Q6H PRN IV 11/16/16 23:00 (Colace) 100 mg BID TUBE 11/16/16 23:00 11/29/16 09:29 Miscellaneous Information 1 Q361D XX 11/16/16 23:00 (Chlorhexidine 2% Cloth) Taper DAILY@04 TOP 11/17/16 04:00 11/13/17 03:59 11/27/16 03:20 (Chlorhexidine 2% Cloth) 3 pack UNSCH PRN TOP 11/16/16 23:00 (D50w (Vial) Inj) 25 ml UNSCH PRN IV PUSH 11/17/16 09:15 Glucagon 1 mg 1 mg UNSCH PRN OTHER 11/17/16 09:15 (Zosyn 3.375 Gm Premix) 50 ml @ 100 mls/hr Q6H IV 11/20/16 12:00 11/29/16 13:20 (Dilaudid ENVELOPE ADDRESSER Inj) 6 mg UNSCH IV 11/23/16 18:45 11/28/16 21:00 ENVELOPE ADDRESSER Dosage Infused (Pha) 1 Q8HR .XX 11/23/16 22:00 11/29/16 05:20 (Benadryl) 25 mg Q6H PRN PO 11/23/16 18:45 (Heparin Inj) 5,000 units Q8H SQ 11/26/16 08:00 11/29/16 09:30 (Protonix) 40 mg DAILY PO 11/26/16 09:00 11/29/16 09:30 (Lactinex) 1 tab TID PO 11/26/16 09:00 11/29/16 13:00 (Percocet 5-325 Mg) 1 tab Q6H PRN PO 11/26/16 08:45 11/26/16 21:59 (Percocet 10-325 Mg) 1 tab Q6H PRN PO 11/26/16 08:45 11/29/16 05:30 (Narcan Inj) 0.4 mg UNSCH PRN IV 11/26/16 08:45 (Apresoline Inj) 10 mg Q6H PRN IV 11/26/16 08:45 (Catapres) 0.1 mg Q6H PRN PO 11/26/16 08:45 Metoprolol Tartrate 25 mg 25 mg BID PO 11/26/16 09:00 11/29/16 09:29 (NS 1000 ml Inj) 1,000 ml @ 30 mls/hr Q24H IV 11/27/16 09:00 11/29/16 05:19 (Dilaudid Pf Inj) 0.5 mg Q4H PRN IV PUSH 11/27/16 10:00 (Apresoline) 25 mg Q12HR PO 11/27/16 11:00 11/29/16 09:29 (Vistaril) 25 mg Q6H PRN PO 11/27/16 10:00 11/29/16 00:06 Family History No hx of renal disorders Social History Single, lives with father unable to ambulate unemployed full code smoked and drank ETOH until admission smoked marijuana (Amy Fernandes) Physical Exam Vital Signs Vital Signs Date Time Temp Pulse Resp B/P Pulse Ox O2 Delivery O2 Flow Rate FiO2 11/29/16 12:00 97.7 78 18 140/95 97 11/29/16 08:37 98.4 90 16 137/86 98 11/29/16 05:20 14 11/29/16 04:00 98.0 76 20 128/80 96 11/29/16 00:00 98.2 80 20 131/84 97 11/28/16 21:03 14 11/28/16 21:00 14 11/28/16 20:00 76 11/28/16 20:00 97.7 78 20 134/81 98 11/28/16 18:12 96.9 86 18 163/92 100 Physical Exam Morbidly obese AAF, sitting up in bed, eating awake, no neuro deficit lungs: diminished in bases due to body habitus S1/S2, quiet precordium abdomen obese, soft left breast/axilla with wound vac, edematous dependent edema throughout Laboratory Laboratory Tests Test 11/29/16 04:46 White Blood Count 20.0 Red Blood Count 2.52 Hemoglobin 7.2 Hematocrit 21.4 Mean Corpuscular Volume 85.1 Mean Corpuscular Hemoglobin 28.6 Mean Corpuscular Hemoglobin 33.6 Concent Red Cell Distribution Width 17.6 Platelet Count 621 Mean Platelet Volume 7.3 Neutrophils (%) (Auto) 79.3 Lymphocytes (%) (Auto) 10.3 Monocytes (%) (Auto) 7.3 Eosinophils (%) (Auto) 2.0 Basophils (%) (Auto) 1.1 Neutrophils # (Auto) 15.9 Lymphocytes # (Auto) 2.1 Monocytes # (Auto) 1.5 Eosinophils # (Auto) 0.4 Basophils # (Auto) 0.2 CBC Comment AUTO DIFF Differential Total Cells 100 Counted Neutrophils % (Manual) 82 Band Neutrophils % 2 Lymphocytes % 8 Monocytes % 3 Eosinophils % 2 Basophils % 2 Neutrophils # (Manual) 17.0 Metamyelocytes 1 Differential Comment FINAL DIFF MANUAL Platelet Estimate HIGH Platelet Morphology Comment NORMAL Red Cell Morphology Comment NORMAL Sodium Level 144 Potassium Level 4.3 Chloride Level 109 Carbon Dioxide Level 25.1 Anion Gap 10 Blood Urea Nitrogen 22 Creatinine 1.85 Estimat Glomerular Filtration 37 Rate Random Glucose 119 Calcium Level 8.6 Magnesium Level 1.9 (Amy Fernandes) Result Diagram: 11/29/16 0446 11/29/16 0446 Imaging Last Impressions Renal Ultrasound 11/24/16 0000 Signed Impressions: Service Date/Time: November 09:51 - CONCLUSION: 1. Echogenic kidneys characteristic of medical renal disease. No hydronephrosis. Bladder unremarkable. William James MD Chest X-Ray 11/23/16 0600 Signed Impressions: Service Date/Time: Wednesday, November 23, 2016 04:13 - CONCLUSION: 1. Improving aeration in the left base with resolving atelectasis/effusion. 2. However, there is slight interval worsening of the atelectatic changes above the right hemidiaphragm. 3. Interstitial haziness suggesting some degree of vascular congestion or volume overload. Heart size remains prominent. 4. Stable position of life support tubes. Leo Newsome MD Lower Extremity Ultrasound 11/16/16 0000 Signed Impressions: Service Date/Time: Wednesday, November 16, 2016 22:30 - CONCLUSION: Normal examination. William James MD (Amy Fernandes) Assessment and Plan Problem List: (1) BLESSING (acute kidney injury) Plan: in a pt with normal renal function at baseline creatinine was normal until 11/18, initially prerenal etiology caused by sepsis and decreased renal perfusion she also had very high vancomycin levels on 11/18, vanc induced nephrotoxicity cannot be excluded this medication has been stopped at this time she is demonstrating fluid overload, stop IVF begin Bumex and monitor effect good urine output renal US negative repeat UA, has proteinuria DUTCH positive avoid additional nephrotoxins renal panel in am (2) Abscess of chest wall Plan: s/p I&D, wound vac in place she has ENVELOPE ADDRESSER for pain control (3) UTI (lower urinary tract infection) Plan: on zosyn remove bajwa when able (Amy Fernandes) Problem List: (1) BLESSING (acute kidney injury) Plan: in a pt with normal renal function at baseline creatinine was normal until 11/18, BP dropped on 11/17, also had very high Vancomycin level on 11/18. Likely has suffered ATN due to hypoperfusion injury and vancomycin toxicity. Stop IVF. Monitor urine output. Avoid nephrotoxic agents. (2) Abscess of chest wall Plan: s/p I&D, wound vac in place she has ENVELOPE ADDRESSER for pain control (3) UTI (lower urinary tract infection) Plan: on zosyn remove bajwa when able Assessment and Plan patient was seen and examined. Above note edited. BLESSING could be secondary to Vancomycin toxicity. Monitor urine output and renal function. (Juan Francisco Cruz MD) Amy Fernandes Nov 29, 2016 16:57 Juan Francisco Cruz MD Nov 30, 2016 08:57
[2016-11-29] MEDS ORDERED: BUMETANIDE INJ 1 MG/4 ML VIAL IV PUSH SCH (18:00)
[2016-11-29] MEDS: HYDROmorphone HCL PCA 6 MG/30 ML IV SCH (19:35)
[2016-11-30] VITALS (8 sets, daily range): BP systolic 130–160; BP diastolic 74–86; PULSE 72–89; RESP 17–25; TEMP 96–98; O2SAT 96–100
[2016-11-30] MEDS: hydrOXYzine PAMOATE 25 MG CAP PO PRN (00:44)
[2016-11-30] MEDS: CHLORHEXIDINE GLUCONATE 2 % 1 PACK (2 CLOTHS) TOP SCH (04:00)
[2016-11-30] MEDS: HYDROmorphone HCL PCA 6 MG/30 ML IV SCH ×3 (04:06→20:34)
[2016-11-30] MEDS: PCA - TOTAL MG DILAUDID DELIVERED PER SHIFT SCH ×3 (04:15→22:00)
[2016-11-30] MEDS: SODIUM CHLOR 0.9% 1000 ML INJ 1,000 ML IV SCH (04:15)
[2016-11-30] MEDS: oxyCODONE/ACETAMINOPHEN 10 MG/325 MG TAB PO PRN ×2 (04:52→20:27)
[2016-11-30] MEDS: PIPERACIL-TAZO 3.375 GM PREMIX 50 ML IV SCH ×3 (04:53→18:11)
[2016-11-30 05:04] LABS: AUTOMATED NEUTROPHIL # 13.9 TH/MM3 (1.8-7.7); BASOPHIL # 0.2 TH/MM3 (0-0.2); BASOPHIL % 1.2 % (0.0-2.0); EOSINOPHIL # 0.4 TH/MM3 (0-0.4); EOSINOPHIL % 2.6 % (0.0-4.0); HEMATOCRIT 21.3 % (35.0-46.0); LYMPHOCYTE # 1.6 TH/MM3 (1.0-4.8); MEAN CELL VOLUME 85.4 FL (80.0-100.0); MEAN CORPUSCULAR HEMOGLOBIN 28.3 PG (27.0-34.0); MEAN CORPUSCULAR HGB CONC 33.1 % (32.0-36.0); MONO % 7.9 % (0.0-8.0); NEUT % 79.3 % (16.0-70.0); PLATELET COUNT 555 TH/MM3 (150-450); RED BLOOD COUNT 2.49 MIL/MM3 (4.00-5.30); RED CELL DISTRIBUTION WIDTH 18.4 % (11.6-17.2); WHITE BLOOD COUNT 17.5 TH/MM3 (4.0-11.0)
[2016-11-30 05:09] LABS: HEMO FLAGS AUTO DIFF
[2016-11-30 05:27] LABS: BICARBONATE 24.8 MEQ/L (21.0-32.0); MAGNESIUM 1.8 MG/DL (1.5-2.5); POTASSIUM 4.5 MEQ/L (3.5-5.1)
[2016-11-30] MEDS: CHLORHEXIDINE 0.12% (ORAL KIT) 15 ML CUP MT SCH ×2 (08:00→20:00)
[2016-11-30 08:08] LABS: SCAN/DIFF AUTO DIFF CONFIRMED
[2016-11-30] MEDS: SODIUM CHLORIDE 0.9% FLUSH 5 ML FLUSH IV FLUSH SCH ×2 (09:00→20:27)
[2016-11-30] MEDS: DOCUSATE SODIUM 100 MG CAP TUBE SCH ×2 (09:00→20:28)
[2016-11-30] MEDS: hydrALAZINE HCL 25 MG TAB PO SCH ×2 (09:17→20:27)
[2016-11-30] MEDS: METOPROLOL TARTRATE 25 MG TAB PO SCH ×2 (09:17→20:27)
[2016-11-30] MEDS: HEPARIN SODIUM - SQ 10,000 UNITS/ML VIAL SQ SCH ×2 (09:17→18:11)
[2016-11-30] MEDS: LACTOBACILLUS ACIDOPHILUS TAB PO SCH ×3 (09:17→18:19)
[2016-11-30] MEDS: HYDROmorphone HCL PF 1 MG/ML VIAL IV PUSH PRN (11:55)
--- NOTE | 2016-11-30 14:26 | HHI.PR ---
Subjective Remarks Follow-up anemia and diarrhea. No gross bleeding reports of shortness of breath when she was out of bed. She had diarrhea yesterday today only 1 stool. Denies nausea or abdominal pain. Discussed with RN Objective Vitals Vital Signs Date Time Temp Pulse Resp B/P Pulse Ox O2 Delivery O2 Flow Rate FiO2 11/30/16 12:00 97.1 81 17 130/78 96 11/30/16 11:56 18 11/30/16 08:09 96.6 88 20 149/74 98 11/30/16 04:15 18 11/30/16 04:06 18 11/30/16 04:00 98.0 81 20 154/86 97 11/30/16 00:09 18 11/30/16 00:00 97.0 88 20 160/82 98 11/29/16 22:00 18 11/29/16 20:05 18 11/29/16 20:00 97.0 91 22 180/99 99 11/29/16 19:35 16 11/29/16 19:05 93 21 11/29/16 16:00 97.1 100 19 176/97 97 I/O 11/29/16 11/29/16 11/29/16 11/30/16 11/30/16 11/30/16 07:00 15:00 23:00 07:00 15:00 23:00 Intake Total 936 ml 500 ml 955 ml 360 ml Output Total 605 ml 1380 ml 550 ml 700 ml 130 ml Balance 331 ml -880 ml 405 ml -340 ml -130 ml Intake Oral 640 ml 500 ml 480 ml 360 ml IV Total 296 ml 475 ml Output Urine Total 500 ml 1300 ml 550 ml 700 ml Drainage Total 105 ml 80 ml 130 ml # Bowel Movements 0 1 0 1 Result Diagram: 11/30/16 0446 11/30/16 0444 Objective Remarks GENERAL: 36-year-old obese female resting in bed on room air SKIN: Warm and dry. No rash HEAD: Atraumatic. Normocephalic. EYES: Pupils equal and round around 3 mm bilaterally and reactive. No scleral icterus. No injection or drainage. ENT: No nasal bleeding or discharge. Mucous membranes pink and moist. NECK: Trachea midline. No JVD. CARDIOVASCULAR: Regular rate and rhythm. S1, S2. No S4. No murmurs rubs or gallops. RESPIRATORY: Distant breath sounds due to body habitus. Clear to auscultation. Breath sounds equal bilaterally. No wheezing or crackles GASTROINTESTINAL: Abdomen soft, non-tender, protuberant. Normoactive bowel sounds MUSCULOSKELETAL: Extremities with minimal leg edema. Wound VAC in left chest NEUROLOGICAL: Cranial nerves II through XII grossly intact. Strength equal and symmetric. Normal sensation. Procedures Right IJ central line 11/17 Excision and debridement necrotizing soft tissue infection, left axilla 40 x 25 cm. 11/20 Vac change with irrigation and debridement of large necrotizing fasciitis wound. 11/22 1. Partial closure of large open wound. 2. I&D large complex wound. 3. Replacement of VAC. 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 Continue Percocet. Counseled regarding narcotics RESP: Acute hypoxemic respiratory failure/postop Nasal cannula to maintain saturations greater than equal to 92% note currently in room air Incentive spirometry while awake CV: Septic shock - resolved History of hypertension Chronic lymphedema On metoprolol 25 twice a day at home which will be resumed. On metolazone 5 mg daily for chronic lymphedema. Hold diuresis for now secondary to acute kidney injury GI: Morbid obesity Heart healthy diet Protonix for GI prophylaxis Colace/as needed Senokot for bowel regimen FEN/RENAL: Hypokalemia BLESSING Creatinine not improving. Continue IV fluids. Renal sonogram with no obstruction. Consulted renal, acute kidney injury secondary to vancomycin Marvin in place. Monitor intake and output. We'll discontinue Marvin once patient out of bed ID: Septic shock Necrotizing fasciitis left axilla/chest wall /breast. Status post debridement of the chest wall, axilla and back by Dr. Lainez 11/16/16 with wound VAC placement. Returned to OR for further debridement Empiric coverage with Zosyn. Infectious disease consult. Blood cultures no growth but still with significant leukocytosis will alert ID. Leukocytosis is improving Intraoperative wound culture staph aureus, Escherichia coli CXR with multifocal opacities. Follow-up C. difficile study HEME: Leukocytosis Normocytic anemia Thrombocytosis - likely reactive secondary to infection/inflammation Bilateral lower ultrasound negative for DVT 11/16/16. Transfused 2 units of PRBCs on 11/18 for hemoglobin of 7. Agrees to be transfused with 2 units of packed RBC again today hemoglobin of 7. Check Hemoccult Check CBC in AM. Follow trends with elevated white blood cell count and crp and peripheral smear and fibrinogen have been ordered/acute phase reactants. ENDO: Hyperglycemia of critical illness. Stable Discontinue sliding scale every 6 hours. PROPH: Protonix 40 mg daily for stress ulcer prophylaxis. Heparin for DVT prophylaxis Discharge Planning Not Stable for discharge Victor Hugo Mahan MD Nov 30, 2016 14:26
[2016-11-30] MEDS ORDERED: SODIUM CHLOR 0.9% 250 ML INJ 250 ML IV ONE (14:30)
--- NOTE | 2016-11-30 16:15 | HHI.NPPN ---
Subjective Complaints: Obesity General Problems: Edema Interval History Awaiting blood transfusion. Edema persists. She is having some pain left arm/ axilla. (Amy Fernandes) Review of Systems Musculoskeletal MS: Pain/Stiffness (Amy Fernandes) Objective Data Data 11/29/16 11/30/16 19:00 07:00 Intake Total 500 ml 1315 ml Output Total 1380 ml 1250 ml Balance -880 ml 65 ml Intake Oral 500 ml 840 ml IV Total 475 ml Output Urine Total 1300 ml 1250 ml Drainage Total 80 ml # Bowel Movements 1 1 Vital Signs Date Time Temp Pulse Resp B/P Pulse Ox O2 Delivery O2 Flow Rate FiO2 11/30/16 12:00 97.1 81 17 130/78 96 11/30/16 11:56 18 11/30/16 08:09 96.6 88 20 149/74 98 11/30/16 04:15 18 11/30/16 04:06 18 11/30/16 04:00 98.0 81 20 154/86 97 11/30/16 00:09 18 11/30/16 00:00 97.0 88 20 160/82 98 11/29/16 22:00 18 11/29/16 20:05 18 11/29/16 20:00 97.0 91 22 180/99 99 11/29/16 19:35 16 11/29/16 19:05 93 21 (Amy Fernandes) -: 11/30/16 0446 11/30/16 0444 Imaging Last Impressions Renal Ultrasound 11/24/16 0000 Signed Impressions: Service Date/Time: November 09:51 - CONCLUSION: 1. Echogenic kidneys characteristic of medical renal disease. No hydronephrosis. Bladder unremarkable. William James MD Chest X-Ray 11/23/16 0600 Signed Impressions: Service Date/Time: Wednesday, November 23, 2016 04:13 - CONCLUSION: 1. Improving aeration in the left base with resolving atelectasis/effusion. 2. However, there is slight interval worsening of the atelectatic changes above the right hemidiaphragm. 3. Interstitial haziness suggesting some degree of vascular congestion or volume overload. Heart size remains prominent. 4. Stable position of life support tubes. Leo Newsome MD Lower Extremity Ultrasound 11/16/16 0000 Signed Impressions: Service Date/Time: Wednesday, November 16, 2016 22:30 - CONCLUSION: Normal examination. William James MD Tubes & Lines: Bajwa (Amy Fernandes) Physical Exam General Appearance: Well Developed, Well Nourished, Comfortable, Painful, Obese ( Amy Fernandes) Throat Throat Exam: Oral Mucosa [place] & Moist (Amy Fernandes) Pulmonary Resp Exam: Clear Bilaterally, Breath Sounds Equal (Amy Fernandes) Cardiology CV Exam: Normal Sinus Rhythm, Good Perfusion (Amy Fernandes) Gastrointestinal/Abdomen GI Exam: Soft, Non-Tender, Bowel Sounds Present (Amy Fernandes) Musculoskeletal MS Exam: Normal Tone (Amy Fernandes) Integumentary Skin Exam: Warm, Dry Skin Remarks wound vac left breast (Amy Fernandes) Extremeties Extremities Exam: Pedal Pulses Palpable, Moderate Edema (Amy Fernandes) Neurologic Neuro Exam: Alert, Awake, Oriented, Speech Clear, Moving All Extremities ( Amy Fernandes) Psychiatric Psych Exam: Appropriate Responses (Amy Fernandes) Assessment/Plan Problem List: (1) BLESSING (acute kidney injury) Plan: in a pt with normal renal function at baseline ATN due to hypoperfusion injury and vancomycin toxicity. Creatinine is slightly worse but overall stable no electrolyte concerns avoid IVF, may need diuresis later but now tolerating oral fluids Monitor urine output. She has been non oliguric Avoid nephrotoxic agents. Recheck vancomycin level in am renal panel in am (2) Abscess of chest wall Plan: s/p I&D, wound vac in place she has DERRICK BOAT RUNNER for pain control (3) UTI (lower urinary tract infection) Plan: on zosyn remove bajwa when able (4) Anemia Plan: 2 units ordered to be given today stool for OB ordered check iron profile (Amy Fernandes) Plan patient was seen and examined. Agree with above assessment and plan. (Juan Francisco Cruz MD) Amy Fernandes Nov 30, 2016 16:15 Juan Francisco Cruz MD Nov 30, 2016 20:19
[2016-11-30] MEDS: diphenhydrAMINE HCL 25 MG CAP PO PRN (20:27)
[2016-12-01] VITALS (10 sets, daily range): BP systolic 125–159; BP diastolic 81–99; PULSE 73–99; RESP 18–21; TEMP 96.1–97.5; O2SAT 96–99
[2016-12-01] MEDS: PIPERACIL-TAZO 3.375 GM PREMIX 50 ML IV SCH ×5 (00:08→22:38)
[2016-12-01] MEDS: HEPARIN SODIUM - SQ 10,000 UNITS/ML VIAL SQ SCH ×4 (00:08→22:38)
[2016-12-01] MEDS: CHLORHEXIDINE GLUCONATE 2 % 1 PACK (2 CLOTHS) TOP SCH (04:00)
[2016-12-01] MEDS: SODIUM CHLOR 0.9% 1000 ML INJ 1,000 ML IV SCH (05:00)
[2016-12-01] MEDS: HYDROmorphone HCL PCA 6 MG/30 ML IV SCH ×2 (05:01→12:08)
[2016-12-01] MEDS: PCA - TOTAL MG DILAUDID DELIVERED PER SHIFT SCH (06:00)
[2016-12-01] MEDS: diphenhydrAMINE HCL 25 MG CAP PO PRN ×2 (06:12→22:43)
--- NOTE | 2016-12-01 06:56 | HHI.NPPN ---
Subjective Complaints: Obesity General Problems: Edema Interval History patient is receiving blood transfusion. Non oliguric. Clinically stable, had no specific complaints. Review of Systems Musculoskeletal MS: Pain/Stiffness Objective Data Data 11/30/16 12/01/16 19:00 07:00 Intake Total 740 ml 1301 ml Output Total 880 ml 1695 ml Balance -140 ml -394 ml Intake Oral 740 ml 600 ml IV Total 375 ml Packed Cells 326 ml Output Urine Total 750 ml 1600 ml Drainage Total 130 ml 95 ml # Bowel Movements 1 2 Vital Signs Date Time Temp Pulse Resp B/P Pulse Ox O2 Delivery O2 Flow Rate FiO2 12/01/16 05:01 20 12/01/16 03:00 97.5 88 20 149/88 98 12/01/16 02:10 96.2 79 20 125/81 98 12/01/16 00:00 96.8 73 21 154/90 98 11/30/16 22:00 18 11/30/16 20:34 18 11/30/16 20:00 96.0 89 21 142/83 98 11/30/16 20:00 72 11/30/16 17:16 96 21 11/30/16 16:00 96.1 86 25 143/81 100 11/30/16 14:00 18 11/30/16 12:00 97.1 81 17 130/78 96 11/30/16 11:56 18 11/30/16 08:09 96.6 88 20 149/74 98 -: 11/30/16 0446 11/30/16 0444 Microbiology 12/01/16 Stool Occult Blood (BRYANT), Received Pending Tubes & Lines: Bajwa Physical Exam General Appearance: Well Developed, Well Nourished, Comfortable, Painful, Obese Throat Throat Exam: Oral Mucosa [place] & Moist Pulmonary Resp Exam: Clear Bilaterally, Breath Sounds Equal Cardiology CV Exam: Normal Sinus Rhythm, Good Perfusion Gastrointestinal/Abdomen GI Exam: Soft, Non-Tender, Bowel Sounds Present Musculoskeletal MS Exam: Normal Tone Integumentary Skin Exam: Warm, Dry Extremeties Extremities Exam: Pedal Pulses Palpable, Pitting Edema Neurologic Neuro Exam: Alert, Awake, Oriented, Speech Clear, Moving All Extremities Psychiatric Psych Exam: Appropriate Responses Assessment/Plan Problem List: (1) BLESSING (acute kidney injury) Plan: Likely developed ATN due to hypoperfusion injury and vancomycin toxicity. Labs are pending this morning. Monitor urine output and renal function. Avoid nephrotoxic agents. A dose of Bumex today. (2) Abscess of chest wall Plan: s/p I&D, wound vac in place she has CLOTH SPREADER for pain control (3) UTI (lower urinary tract infection) Plan: on zosyn remove bawja when able (4) Anemia Plan: She is receiving blood transfusion today. Juan Francisco Cruz MD Dec 01, 2016 06:56
[2016-12-01] MEDS ORDERED: BUMETANIDE INJ 1 MG/4 ML VIAL IV PUSH ONE (07:00)
[2016-12-01 07:04] LABS: C. DIFF EPI 027 PRESUMPTIVE NEGATIVE (NEGATIVE); C. DIFF TOXIN PCR NEGATIVE (NEGATIVE)
[2016-12-01] MEDS: CHLORHEXIDINE 0.12% (ORAL KIT) 15 ML CUP MT SCH ×2 (07:13→20:00)
[2016-12-01] MEDS: METOPROLOL TARTRATE 25 MG TAB PO SCH ×2 (07:45→19:48)
[2016-12-01] MEDS: LACTOBACILLUS ACIDOPHILUS TAB PO SCH ×3 (07:45→17:04)
[2016-12-01] MEDS: hydrALAZINE HCL 25 MG TAB PO SCH ×2 (07:45→19:48)
[2016-12-01] MEDS: DOCUSATE SODIUM 100 MG CAP TUBE SCH ×2 (07:45→19:49)
[2016-12-01] MEDS: SODIUM CHLORIDE 0.9% FLUSH 5 ML FLUSH IV FLUSH SCH ×2 (07:46→19:49)
[2016-12-01] MEDS: oxyCODONE/ACETAMINOPHEN 10 MG/325 MG TAB PO PRN ×2 (08:48→18:33)
[2016-12-01 13:28] LABS: AUTOMATED NEUTROPHIL # 14.9 TH/MM3 (1.8-7.7); BASOPHIL % 0.2 % (0.0-2.0); EOSINOPHIL # 0.6 TH/MM3 (0-0.4); EOSINOPHIL % 3.3 % (0.0-4.0); HEMATOCRIT 30.9 % (35.0-46.0); LYMPH % 8.8 % (9.0-44.0); LYMPHOCYTE # 1.6 TH/MM3 (1.0-4.8); MEAN CELL VOLUME 85.8 FL (80.0-100.0); MEAN CORPUSCULAR HEMOGLOBIN 26.9 PG (27.0-34.0); MEAN CORPUSCULAR HGB CONC 31.4 % (32.0-36.0); MONO % 8.4 % (0.0-8.0); NEUT % 79.3 % (16.0-70.0); PLATELET COUNT 503 TH/MM3 (150-450); RED CELL DISTRIBUTION WIDTH 17.6 % (11.6-17.2); WHITE BLOOD COUNT 18.8 TH/MM3 (4.0-11.0)
[2016-12-01 13:30] LABS: HEMO FLAGS AUTO DIFF
--- NOTE | 2016-12-01 13:38 | HHI.PR ---
Subjective Remarks Follow-up necrotizing fasciitis. 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 Regular bowel movement today. Discussed with case management, no payor source for rehabilitation. Rob Has no braydon bed. Discussed with RN, clarify discharge plans with ID, general surgery and nephrology. Tolerated blood transfusion yesterday Objective Vitals Vital Signs Date Time Temp Pulse Resp B/P Pulse Ox O2 Delivery O2 Flow Rate FiO2 12/01/16 12:38 18 12/01/16 12:08 18 12/01/16 12:00 97.1 80 18 138/86 97 12/01/16 09:48 17 12/01/16 08:00 96.4 77 18 137/84 99 12/01/16 06:00 20 12/01/16 06:00 20 12/01/16 05:01 20 12/01/16 03:00 97.5 88 20 149/88 98 12/01/16 02:10 96.2 79 20 125/81 98 12/01/16 00:00 96.8 73 21 154/90 98 11/30/16 22:00 18 11/30/16 20:34 18 11/30/16 20:00 96.0 89 21 142/83 98 11/30/16 20:00 72 11/30/16 19:45 20 11/30/16 17:16 96 21 11/30/16 16:00 96.1 86 25 143/81 100 11/30/16 14:00 18 I/O 11/30/16 11/30/16 11/30/16 12/01/16 12/01/16 12/01/16 07:00 15:00 23:00 07:00 15:00 23:00 Intake Total 360 ml 740 ml 615 ml 786 ml Output Total 700 ml 880 ml 895 ml 875 ml Balance -340 ml -140 ml -280 ml -89 ml Intake Oral 360 ml 740 ml 240 ml 360 ml IV Total 375 ml 100 ml Packed Cells 326 ml Output Urine Total 700 ml 750 ml 800 ml 800 ml Drainage Total 130 ml 95 ml 75 ml # Bowel Movements 1 1 1 1 Result Diagram: 12/01/16 1316 11/30/16 0444 Imaging Last Impressions Renal Ultrasound 11/24/16 0000 Signed Impressions: Service Date/Time: November 09:51 - CONCLUSION: 1. Echogenic kidneys characteristic of medical renal disease. No hydronephrosis. Bladder unremarkable. William James MD Chest X-Ray 11/23/16 0600 Signed Impressions: Service Date/Time: Wednesday, November 23, 2016 04:13 - CONCLUSION: 1. Improving aeration in the left base with resolving atelectasis/effusion. 2. However, there is slight interval worsening of the atelectatic changes above the right hemidiaphragm. 3. Interstitial haziness suggesting some degree of vascular congestion or volume overload. Heart size remains prominent. 4. Stable position of life support tubes. Leo Newsome MD Lower Extremity Ultrasound 11/16/16 0000 Signed Impressions: Service Date/Time: Wednesday, November 16, 2016 22:30 - CONCLUSION: Normal examination. William James MD Objective Remarks GENERAL: 36-year-old obese female resting in bed on room air SKIN: Warm and dry. No rash HEAD: Atraumatic. Normocephalic. EYES: Pupils equal and round around 3 mm bilaterally and reactive. No scleral icterus. No injection or drainage. ENT: No nasal bleeding or discharge. Mucous membranes pink and moist. NECK: Trachea midline. No JVD. CARDIOVASCULAR: Regular rate and rhythm. S1, S2. No S4. No murmurs rubs or gallops. RESPIRATORY: Distant breath sounds due to body habitus. Clear to auscultation. Breath sounds equal bilaterally. No wheezing or crackles GASTROINTESTINAL: Abdomen soft, non-tender, protuberant. Normoactive bowel sounds MUSCULOSKELETAL: Extremities with minimal leg edema. Wound VAC in left chest NEUROLOGICAL: Cranial nerves II through XII grossly intact. Strength equal and symmetric. Normal sensation. Nonfocal Procedures Right IJ central line 3/2 Excision and debridement necrotizing soft tissue infection, left axilla 40 x 25 cm. 3/5 Vac change with irrigation and debridement of large necrotizing fasciitis wound. 11/22 1. Partial closure of large open wound. 2. I&D large complex wound. 3. Replacement of VAC. 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 Continue Percocet and IV Dilaudid as needed. Counseled regarding narcotics RESP: Acute hypoxemic respiratory failure/postop Nasal cannula to maintain saturations greater than equal to 92% note currently in room air Incentive spirometry while awake CV: Septic shock - resolved History of hypertension Chronic lymphedema On metoprolol 25 twice a day at home which will be resumed. On metolazone 5 mg daily for chronic lymphedema. Hold diuresis for now secondary to acute kidney injury GI: Morbid obesity Heart healthy diet Protonix for GI prophylaxis Colace/as needed Senokot for bowel regimen FEN/RENAL: Hypokalemia BLESSING Creatinine not improving. Renal sonogram with no obstruction. Consulted renal, acute kidney injury secondary to vancomycin and hypoperfusion Marvin in place. Monitor intake and output. We'll discontinue Marvin once patient out of bed ID: Septic shock Necrotizing fasciitis left axilla/chest wall /breast. Status post debridement of the chest wall, axilla and back by Dr. Lainez 11/16/16 with wound VAC placement. Returned to OR for further debridement Empiric coverage with Zosyn. Infectious disease consult. Blood cultures no growth but still with significant leukocytosis will alert ID. Leukocytosis is improving Intraoperative wound culture staph aureus, Escherichia coli CXR with multifocal opacities. Follow-up C. difficile study patient with formed BM HEME: Leukocytosis Normocytic anemia Thrombocytosis - likely reactive secondary to infection/inflammation Bilateral lower ultrasound negative for DVT 11/16/16. Transfused 2 units of PRBCs on 11/18 for hemoglobin of 7. Agrees to be transfused with 2 units of packed RBC again today hemoglobin of 7. Check Hemoccult Check CBC in AM. Follow trends with elevated white blood cell count and crp and peripheral smear and fibrinogen have been ordered/acute phase reactants. ENDO: Hyperglycemia of critical illness. Stable Discontinue sliding scale every 6 hours. PROPH: Protonix 40 mg daily for stress ulcer prophylaxis. Heparin for DVT prophylaxis Discharge Planning No payor source for rehabilitation. Rob has no bryadon bed Abando,Victor Hugo Lea MD Dec 01, 2016 13:38
[2016-12-01 13:55] LABS: ANION GAP 8 MEQ/L (5-15); BICARBONATE 29.4 MEQ/L (21.0-32.0); BLOOD UREA NITROGEN 21 MG/DL (7-18); CHLORIDE 104 MEQ/L (98-107); GLOMERULAR FILTRATION RATE 41 ML/MIN (>89); MAGNESIUM 2.1 MG/DL (1.5-2.5); POTASSIUM 4.3 MEQ/L (3.5-5.1); SODIUM (NA) 141 MEQ/L (136-145)
[2016-12-01 13:58] LABS: TRANSFERRIN IRON PROFILE 251 MG/DL (200-360)
[2016-12-01 14:04] LABS: SCAN/DIFF AUTO DIFF CONFIRMED
[2016-12-01] MEDS: HYDROmorphone HCL PF 1 MG/ML VIAL IV PUSH PRN (22:38)
[2016-12-02] MEDS: oxyCODONE/ACETAMINOPHEN 10 MG/325 MG TAB PO PRN ×4 (02:47→23:41)
[2016-12-02] MEDS: hydrOXYzine PAMOATE 25 MG CAP PO PRN ×2 (02:52→23:45)
[2016-12-02 04:00] VITALS: BP 168/83; PULSE 74; RESP 20; TEMP 96.7; O2SAT 99
[2016-12-02] MEDS: CHLORHEXIDINE GLUCONATE 2 % 1 PACK (2 CLOTHS) TOP SCH ×2 (04:00→23:45)
[2016-12-02] MEDS: PIPERACIL-TAZO 3.375 GM PREMIX 50 ML IV SCH ×2 (06:10→11:39)
[2016-12-02] MEDS: CHLORHEXIDINE 0.12% (ORAL KIT) 15 ML CUP MT SCH ×3 (07:05→23:46)
[2016-12-02] MEDS: HYDROmorphone HCL PF 1 MG/ML VIAL IV PUSH PRN ×3 (07:25→21:04)
[2016-12-02] MEDS: HEPARIN SODIUM - SQ 10,000 UNITS/ML VIAL SQ SCH ×3 (07:27→23:45)
[2016-12-02] MEDS: DOCUSATE SODIUM 100 MG CAP TUBE SCH ×2 (07:28→21:03)
[2016-12-02] MEDS: hydrALAZINE HCL 25 MG TAB PO SCH ×2 (07:28→21:03)
[2016-12-02] MEDS: LACTOBACILLUS ACIDOPHILUS TAB PO SCH ×3 (07:28→16:43)
[2016-12-02] MEDS: SODIUM CHLORIDE 0.9% FLUSH 5 ML FLUSH IV FLUSH SCH ×2 (07:28→21:05)
[2016-12-02] MEDS: METOPROLOL TARTRATE 25 MG TAB PO SCH ×2 (07:28→21:03)
[2016-12-02 08:00] VITALS: BP 160/93; PULSE 77; RESP 17; TEMP 97.8; O2SAT 100
[2016-12-02 11:42] LABS: AUTOMATED NEUTROPHIL # 14.1 TH/MM3 (1.8-7.7); BASOPHIL % 0.2 % (0.0-2.0); EOSINOPHIL # 0.7 TH/MM3 (0-0.4); EOSINOPHIL % 3.7 % (0.0-4.0); LYMPH % 9.7 % (9.0-44.0); LYMPHOCYTE # 1.8 TH/MM3 (1.0-4.8); MEAN CELL VOLUME 86.2 FL (80.0-100.0); MEAN CORPUSCULAR HEMOGLOBIN 27.5 PG (27.0-34.0); MEAN CORPUSCULAR HGB CONC 31.9 % (32.0-36.0); MONO % 8.6 % (0.0-8.0); NEUT % 77.8 % (16.0-70.0); PLATELET COUNT 458 TH/MM3 (150-450); RED BLOOD COUNT 3.82 MIL/MM3 (4.00-5.30); WHITE BLOOD COUNT 18.1 TH/MM3 (4.0-11.0)
--- NOTE | 2016-12-02 11:42 | HHI.NPPN ---
Subjective Complaints: Obesity General Problems: Edema, Obesity Renal Failure: Acute Interval History Renal function has improved, todays labs in process. (Amy Fernandes) Review of Systems Musculoskeletal MS: Pain/Stiffness (Amy Fernandes) Objective Data Data 12/01/16 12/02/16 19:00 07:00 Intake Total 1239 ml 490 ml Output Total 3190 ml 2060 ml Balance -1951 ml -1570 ml Intake Oral 800 ml 390 ml IV Total 139 ml 100 ml Packed Cells 300 ml Output Urine Total 3100 ml 2000 ml Drainage Total 90 ml 60 ml # Bowel Movements 2 2 Vital Signs Date Time Temp Pulse Resp B/P Pulse Ox O2 Delivery O2 Flow Rate FiO2 12/02/16 08:00 97.8 77 17 160/93 100 12/02/16 07:55 17 12/02/16 04:00 96.7 74 20 168/83 99 12/01/16 23:35 96.3 76 21 135/83 98 12/01/16 20:00 90 12/01/16 20:00 96.5 99 20 147/99 97 12/01/16 16:00 96.1 79 18 159/90 98 12/01/16 13:15 96 21 12/01/16 12:38 18 12/01/16 12:08 18 12/01/16 12:00 97.1 80 18 138/86 97 (Amy Fernandes) -: 12/01/16 1316 12/01/16 1316 Tubes & Lines: Bajwa (Amy Fernandes) Physical Exam General Appearance: Well Developed, Well Nourished, Comfortable, Painful, Obese ( Amy Fernandes) Throat Throat Exam: Oral Mucosa [place] & Moist (Amy Fernandes) Pulmonary Resp Exam: Clear Bilaterally, Breath Sounds Equal, No Distress (Amy Fernandes) Cardiology CV Exam: Normal Sinus Rhythm, Good Perfusion (Amy Fernandes) Gastrointestinal/Abdomen GI Exam: Soft, Non-Tender, Bowel Sounds Present (Amy Fernandes) Musculoskeletal MS Exam: Normal Tone (Amy Fernandes) Integumentary Skin Exam: Warm, Dry Skin Remarks wound vac left breast (Amy Fernandes) Extremeties Extremities Exam: Pedal Pulses Palpable, Pitting Edema Extremeties Remarks left arm edema (Amy Fernandes) Neurologic Neuro Exam: Alert, Awake, Oriented, Speech Clear, Moving All Extremities ( Amy Fernandes) Psychiatric Psych Exam: Appropriate Responses (Amy Fernandes) Assessment/Plan Problem List: (1) BLESSING (acute kidney injury) Plan: Likely developed ATN due to hypoperfusion injury and vancomycin toxicity. Renal function has been improving, awaiting repeat draw Monitor urine output and renal function. given a dose of Bumex, good response Avoid nephrotoxic agents. 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 Agree with above. (Juan Francisco Cruz MD) Amy Fernandes Dec 02, 2016 11:42 Juan Francisco Cruz MD Dec 04, 2016 17:21
[2016-12-02 12:00] VITALS: BP 167/105; PULSE 78; RESP 24; TEMP 98.7; O2SAT 99
[2016-12-02 12:15] LABS: HEMO FLAGS AUTO DIFF
[2016-12-02 12:16] LABS: SCAN/DIFF AUTO DIFF CONFIRMED
[2016-12-02 12:23] LABS: BICARBONATE 23.4 MEQ/L (21.0-32.0); MAGNESIUM 2.1 MG/DL (1.5-2.5); POTASSIUM 5.2 MEQ/L (3.5-5.1)
--- NOTE | 2016-12-02 15:17 | HHI.PR ---
Subjective Remarks Follow-up visit necrotizing fasciitis, status post debridement chest wall, axilla and back without placement. Patient seen today. Mother at the bedside. States that Dr. Migel DUTTA SUNIL drains and changed Wound Vac dsg. Reports she is doing well. 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 Denies pain and discomfort. Denies SOB/ dyspnea. Denies chest pain, palpitations, headaches, dizziness. Denies fevers, chills, n/v/d. Objective Vitals Vital Signs Date Time Temp Pulse Resp B/P Pulse Ox O2 Delivery O2 Flow Rate FiO2 12/02/16 13:40 18 12/02/16 12:39 17 12/02/16 12:00 98.7 78 24 167/105 99 12/02/16 08:00 97.8 77 17 160/93 100 12/02/16 07:55 17 12/02/16 04:00 96.7 74 20 168/83 99 12/01/16 23:35 96.3 76 21 135/83 98 12/01/16 20:00 90 12/01/16 20:00 96.5 99 20 147/99 97 12/01/16 16:00 96.1 79 18 159/90 98 I/O 12/01/16 12/01/16 12/01/16 12/02/16 12/02/16 12/02/16 07:00 15:00 23:00 07:00 15:00 23:00 Intake Total 786 ml 439 ml 1160 ml 130 ml 50 ml Output Total 875 ml 90 ml 3950 ml 1210 ml 60 ml Balance -89 ml 349 ml -2790 ml -1080 ml -10 ml Intake Oral 360 ml 1160 ml 30 ml IV Total 100 ml 139 ml 100 ml 50 ml Packed Cells 326 ml 300 ml Output Urine Total 800 ml 3900 ml 1200 ml Drainage Total 75 ml 90 ml 50 ml 10 ml 60 ml # Bowel Movements 1 3 1 Result Diagram: 12/02/16 1124 12/02/16 1124 Objective Remarks GENERAL: This is a morbidly obese female patient, in no apparent distress. SKIN: Vac dsg left axilla chest region in place draining serous drainage. HEENT: Normocephalic. Pupils equal round and reactive. Nose without bleeding. Airway patent. NECK: Trachea midline. No JVD. Supple. CARDIOVASCULAR: Regular rate and rhythm without murmurs, gallops, or rubs. RESPIRATORY: Clear to auscultation. Breath sounds equal bilaterally. No wheezes , rales, or rhonchi. GASTROINTESTINAL: Abdomen soft, non-tender, nondistended. Bowel Sounds normoactive x4. : Marvin catheter draining yellow urine clear MUSCULOSKELETAL: Extremities without clubbing, cyanosis, +1 bilateral lower extremity edema. NEUROLOGICAL: Awake and alert. Oriented x 3. No focal neuro deficit. MCLEOD. Normal speech. Procedures Right IJ central line 3/ Excision and debridement necrotizing soft tissue infection, left axilla 40 x 25 cm. 11/20 Vac change with irrigation and debridement of large necrotizing fasciitis wound. 11/22 1. Partial closure of large open wound. 2. I&D large complex wound. 3. Replacement of VAC. A/P Problem List: (1) Anemia ICD Code: D64.9 Status: Acute (2) BLESSING (acute kidney injury) ICD Code: N17.9 Status: Acute (3) UTI (lower urinary tract infection) ICD Code: N39.0 Status: Acute (4) Morbid obesity ICD Code: E66.01 Status: Acute (5) Abscess of chest wall ICD Code: L02.213 Status: Acute (6) Hypertension ICD Code: I10 Status: Acute (7) Chronic acquired lymphedema ICD Code: I89.0 Status: Acute (8) Necrotizing fasciitis ICD Code: M72.6 Status: Acute Assessment and Plan Patient is a 66-year-old morbidly obese female with past medical history of hypertension, bilateral lower extremity lymphedema was undergone operative debridement of necrotizing fasciitis of left axilla, chest, back. Reportedly, developed a boil in the left axilla after shaving. This eventually drained spontaneously and showed some initial improvement. She then developed blisters of the axilla and chest wall. She developed some drainage from left chest. She had subjective fevers. She presented to [facility] ED where Dr. Lainez was consulted emergently for evaluation for necrotizing fasciitis. She was taken emergently to OR where she underwent debridement of left axilla, breast, left chest wall, back with wound VAC placement. 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 - On metolazone 5 mg daily for chronic lymphedema. Hold diuresis for now secondary to acute kidney injury Morbid obesity - Heart healthy diet - Protonix for GI prophylaxis - Colace/as needed Senokot for bowel regimen - DC telemetry Hypokalemia - resolved BLESSING - Renal sonogram with no obstruction. Consulted renal, acute kidney injury secondary to vancomycin and hypoperfusion - Marvin in place. Monitor intake and output. We'll discontinue Marvin once patient out of bed - Monitor creatinine 1.90 --> 1.72 --> 1.90 Septic shock Necrotizing fasciitis left axilla/chest wall /breast. Status post debridement of the chest wall, axilla and back by Dr. Lainez 11/16/16 with wound VAC placement. - Returned to OR for further debridement - Empiric coverage with Zosyn. - Infectious disease consult. Blood cultures no growth but still with significant leukocytosis - slightly improved - Intraoperative wound culture staph aureus, Escherichia coli CXR with multifocal opacities. - Follow-up C. difficile study patient with formed BM. Negative C. difficile Leukocytosis Normocytic anemia Thrombocytosis - likely reactive secondary to infection/inflammation - Bilateral lower ultrasound negative for DVT 11/16/16. - Transfused 2 units of PRBCs on 11/18 for hemoglobin of 7. Agrees to be transfused with 2 units of packed RBC again today hemoglobin of 7. Check Hemoccult - Peripheral smear showed leukocytosis and neutrophilia with reactive features and left shift. Severe normochromic, normocytic anemia - fibrinogen 491 possible increase secondary to inflammatory process - Follow trends with elevated white blood cell count and crp. Hyperglycemia of critical illness. Stable - Discontinue sliding scale every 6 hours. Protonix 40 mg daily for stress ulcer prophylaxis. Heparin for DVT prophylaxis Full code Discussed with patient, mother, nursing Dr. Trejo Discharge Planning No payor source for rehabilitation. Rob has no braydon bed Problem Qualifiers (1) Morbid obesity: Qualified Code: E66.01 - Morbid obesity, unspecified obesity type (2) Hypertension: Qualified Code: I10 - Essential hypertension Rich Perea Dec 02, 2016 15:17
--- NOTE | 2016-12-02 15:49 | HHI.IDPN ---
Subjective Subjective Remarks still co L axillae, LUE chest pain cont to have leukocytosis no fever mildly elevated creatinine Antibiotics zosyn Allergies: Coded Allergies: No Known Allergies (Unverified , 11/16/16) Objective . Vital Signs Date Time Temp Pulse Resp B/P Pulse Ox O2 Delivery O2 Flow Rate FiO2 12/02/16 13:40 18 12/02/16 12:39 17 12/02/16 12:00 98.7 78 24 167/105 99 12/02/16 08:00 97.8 77 17 160/93 100 12/02/16 07:55 17 12/02/16 04:00 96.7 74 20 168/83 99 12/01/16 23:35 96.3 76 21 135/83 98 12/01/16 20:00 90 12/01/16 20:00 96.5 99 20 147/99 97 12/01/16 16:00 96.1 79 18 159/90 98 12/01/16 12/01/16 12/02/16 15:00 23:00 07:00 Intake Total 439 ml 1160 ml 130 ml Output Total 90 ml 3950 ml 1210 ml Balance 349 ml -2790 ml -1080 ml Intake Oral 1160 ml 30 ml IV Total 139 ml 100 ml Packed Cells 300 ml Output Urine Total 3900 ml 1200 ml Drainage Total 90 ml 50 ml 10 ml # Bowel Movements 3 1 . Laboratory Tests Test 12/01/16 12/02/16 13:16 11:24 White Blood Count 18.8 TH/MM3 18.1 TH/MM3 Red Blood Count 3.60 MIL/MM3 3.82 MIL/MM3 Hemoglobin 9.7 GM/DL 10.5 GM/DL Hematocrit 30.9 % 33.0 % Mean Corpuscular Volume 85.8 FL 86.2 FL Mean Corpuscular Hemoglobin 26.9 PG 27.5 PG Mean Corpuscular Hemoglobin 31.4 % 31.9 % Concent Red Cell Distribution Width 17.6 % 18.0 % Platelet Count 503 TH/MM3 458 TH/MM3 Mean Platelet Volume 7.3 FL 8.0 FL Neutrophils (%) (Auto) 79.3 % 77.8 % Lymphocytes (%) (Auto) 8.8 % 9.7 % Monocytes (%) (Auto) 8.4 % 8.6 % Eosinophils (%) (Auto) 3.3 % 3.7 % Basophils (%) (Auto) 0.2 % 0.2 % Neutrophils # (Auto) 14.9 TH/MM3 14.1 TH/MM3 Lymphocytes # (Auto) 1.6 TH/MM3 1.8 TH/MM3 Monocytes # (Auto) 1.6 TH/MM3 1.6 TH/MM3 Eosinophils # (Auto) 0.6 TH/MM3 0.7 TH/MM3 Basophils # (Auto) 0.0 TH/MM3 0.0 TH/MM3 CBC Comment AUTO DIFF AUTO DIFF Differential Comment AUTO DIFF AUTO DIFF CONFIRMED CONFIRMED Laboratory Tests Test 12/01/16 12/02/16 13:16 11:24 Sodium Level 141 MEQ/L 141 MEQ/L Potassium Level 4.3 MEQ/L 5.2 MEQ/L Chloride Level 104 MEQ/L 107 MEQ/L Carbon Dioxide Level 29.4 MEQ/L 23.4 MEQ/L Anion Gap 8 MEQ/L 11 MEQ/L Blood Urea Nitrogen 21 MG/DL 23 MG/DL Creatinine 1.72 MG/DL 1.90 MG/DL Estimat Glomerular Filtration 41 ML/MIN 36 ML/MIN Rate Random Glucose 88 MG/DL 106 MG/DL Calcium Level 8.8 MG/DL 8.5 MG/DL Magnesium Level 2.1 MG/DL 2.1 MG/DL Iron Level 51 MCG/DL Total Iron Binding Capacity 351 MCG/DL Percent Iron Saturation 14.5 % Microbiology Date/Time Procedure Status Source Growth 12/01/16 05:55 Stool Occult Blood ([facility]YANT) - Final Complete Stool Stool HEMOCCULT NEGATIVE Imaging Last Impressions Renal Ultrasound 11/24/16 0000 Signed Impressions: Service Date/Time: November 09:51 - CONCLUSION: 1. Echogenic kidneys characteristic of medical renal disease. No hydronephrosis. Bladder unremarkable. William James MD Chest X-Ray 11/23/16 0600 Signed Impressions: Service Date/Time: Wednesday, November 23, 2016 04:13 - CONCLUSION: 1. Improving aeration in the left base with resolving atelectasis/effusion. 2. However, there is slight interval worsening of the atelectatic changes above the right hemidiaphragm. 3. Interstitial haziness suggesting some degree of vascular congestion or volume overload. Heart size remains prominent. 4. Stable position of life support tubes. Leo Newsome MD Lower Extremity Ultrasound 11/16/16 0000 Signed Impressions: Service Date/Time: Wednesday, November 16, 2016 22:30 - CONCLUSION: Normal examination. William James MD Physical Exam CONSTITUTIONAL/GENERAL: This is a morbidly obese female patient, in no apparent distress. TUBES/LINES/DRAINS: SKIN: No jaundice, rashes, or lesions. Large skin defect in L axilla/lateral chest area covered with VAC dressing; no induration or erythema noted around the VAC Mild edema of prox LUE noted CARDIOVASCULAR: Regular rate and rhythm without murmurs, gallops, or rubs. No JVD. Peripheral pulses symmetric. RESPIRATORY/CHEST: Symmetric, unlabored respirations. Clear to auscultation. Breath sounds equal bilaterally. No wheezes, rales, or rhonchi. GASTROINTESTINAL: Abdomen soft, non-tender, nondistended. No hepato-splenomegaly , or palpable masses. No guarding. Bowel sounds present. GENITOURINARY: Without palpable bladder distension. MUSCULOSKELETAL: Extremities without clubbing, cyanosis, + edema. NEUROLOGICAL: awake alert ; follows commands; normal speech Assessment & Plan Remarks Nec fasciitis L axillae/chest area, polimicrobial mixed aerobic/anaeroic along with staph wide local excision of soft tissue infection in LEFT axilla, chest breast - last I+D /VAC change 11/21: report reviewed - no purulence or necrotic tissue - she was 10 days on abx since her last debridement clinically improving growing E.coli, MSSA, anaerob Acute VDRF, resolved Severe leukocytosis - persistent Diarrhea (5 BMs yday) - C.diff negative Elevated creatinine duc stack, fu WBC Rachel Marsh MD Dec 02, 2016 15:49
[2016-12-02 16:00] VITALS: BP 165/87; PULSE 80; RESP 24; TEMP 96.9; O2SAT 98
--- NOTE | 2016-12-02 16:29 | HHI.PR ---
Subjective Subjective Notes Resting in bed Dr. Sol, EVELINA Mead and Wound team present for dressing change Objective Vitals/I&O Vital Signs Date Time Temp Pulse Resp B/P Pulse Ox O2 Delivery O2 Flow Rate FiO2 12/02/16 13:40 18 12/02/16 12:00 98.7 78 167/105 99 12/01/16 13:15 21 11/28/16 08:24 Nasal Cannula Labs Laboratory Tests Test 12/02/16 11:24 White Blood Count 18.1 Red Blood Count 3.82 Hemoglobin 10.5 Hematocrit 33.0 Mean Corpuscular Volume 86.2 Mean Corpuscular Hemoglobin 27.5 Mean Corpuscular Hemoglobin 31.9 Concent Red Cell Distribution Width 18.0 Platelet Count 458 Mean Platelet Volume 8.0 Neutrophils (%) (Auto) 77.8 Lymphocytes (%) (Auto) 9.7 Monocytes (%) (Auto) 8.6 Eosinophils (%) (Auto) 3.7 Basophils (%) (Auto) 0.2 Neutrophils # (Auto) 14.1 Lymphocytes # (Auto) 1.8 Monocytes # (Auto) 1.6 Eosinophils # (Auto) 0.7 Basophils # (Auto) 0.0 CBC Comment AUTO DIFF Differential Comment AUTO DIFF CONFIRMED Sodium Level 141 Potassium Level 5.2 Chloride Level 107 Carbon Dioxide Level 23.4 Anion Gap 11 Blood Urea Nitrogen 23 Creatinine 1.90 Estimat Glomerular Filtration 36 Rate Random Glucose 106 Calcium Level 8.5 Magnesium Level 2.1 Date/Time Procedure Status Source Growth 12/01/16 05:55 Stool Occult Blood ([facility]YANT) - Final Complete Stool Stool HEMOCCULT NEGATIVE Cardiovascular: Regular Lungs: Clear Abdomen: Non-distended, Non-tender Extremities: Other (see below ) Narrative Exam LEFT axilla; chest/breast----wound vac removed--- SUNIL drain x2 also removed; tissue beefy red with no exudate wound vac replaced with good seal A/P Assessment and Plan 36 year old female s/p wide local excision of soft tissue infection in LEFT axilla, chest breast -Plan to change vac again Monday with Wound Team -Tolerating regular diet -ID following for antibiotics therapy -Will need skin grafts at some point -Discussed with EVELINA Mead and Wound Team I certify and attest that I personally examined this patient with Ms. Ocasio who documented our visit in the EMR and entered orders under my direct supervision. I reviewed the care plan with the nursing staff and family if present. ELEAZAR SOL MD FACS Priyanka Ocasio Dec 02, 2016 16:29 Eleazar Sol MD Dec 07, 2016 14:34
[2016-12-02] MEDS: diphenhydrAMINE HCL 25 MG CAP PO PRN (18:41)
[2016-12-02 20:00] VITALS: BP 134/81; PULSE 84; RESP 20; TEMP 98.5; O2SAT 97
[2016-12-03] VITALS: BP 135/74; PULSE 96; RESP 20; TEMP 97.6; O2SAT 99
[2016-12-03] MEDS: oxyCODONE/ACETAMINOPHEN 10 MG/325 MG TAB PO PRN ×2 (06:29→17:27)
[2016-12-03] MEDS: diphenhydrAMINE HCL 25 MG CAP PO PRN ×2 (06:36→21:16)
[2016-12-03 08:00] VITALS: BP 137/92; PULSE 88; RESP 17; TEMP 97.9; O2SAT 100
[2016-12-03] MEDS: hydrALAZINE HCL 25 MG TAB PO SCH ×2 (09:00→20:59)
[2016-12-03] MEDS: DOCUSATE SODIUM 100 MG CAP TUBE SCH ×2 (09:00→20:59)
[2016-12-03] MEDS: SODIUM CHLORIDE 0.9% FLUSH 5 ML FLUSH IV FLUSH SCH ×2 (09:15→21:01)
[2016-12-03] MEDS: LACTOBACILLUS ACIDOPHILUS TAB PO SCH ×3 (09:16→17:22)
[2016-12-03] MEDS: HEPARIN SODIUM - SQ 10,000 UNITS/ML VIAL SQ SCH ×2 (09:16→17:22)
[2016-12-03] MEDS: METOPROLOL TARTRATE 25 MG TAB PO SCH ×2 (09:17→20:59)
--- NOTE | 2016-12-03 11:18 | HHI.PR ---
Subjective Remarks Follow for necrotizing fasciitis Afebrile, chest with oral pain medications, no fever. Complaining of headache when she wakes up in the morning. No nausea or vomiting. No focal deficits. Objective Vitals Vital Signs Date Time Temp Pulse Resp B/P Pulse Ox O2 Delivery O2 Flow Rate FiO2 12/03/16 08:00 97.9 88 17 137/92 100 12/03/16 00:00 97.6 96 20 135/74 99 12/02/16 20:00 98.5 84 20 134/81 97 12/02/16 17:46 18 12/02/16 16:00 96.9 80 24 165/87 98 12/02/16 13:40 18 12/02/16 12:00 98.7 78 24 167/105 99 I/O 12/02/16 12/02/16 12/02/16 12/03/16 12/03/16 12/03/16 06:59 14:59 22:59 06:59 14:59 22:59 Intake Total 130 ml 730 ml 440 ml 480 ml Output Total 1210 ml 2085 ml 700 ml 650 ml Balance -1080 ml -1355 ml -260 ml -170 ml Intake Oral 30 ml 680 ml 440 ml 480 ml IV Total 100 ml 50 ml Output Urine Total 1200 ml 2025 ml 700 ml 650 ml Drainage Total 10 ml 60 ml # Bowel Movements 1 1 1 2 Result Diagram: 12/02/16 1124 12/02/16 1124 Objective Remarks GENERAL: This is a morbidly obese female patient, in no apparent distress. SKIN: Dressings left axilla chest region in place, clean HEENT: Normocephalic. Pupils equal round and reactive. NECK: Trachea midline. No JVD. Supple. CARDIOVASCULAR: Regular rate and rhythm without murmurs, gallops, or rubs. Chest dressings in place. RESPIRATORY: Clear to auscultation. Breath sounds equal bilaterally. No wheezes , rales, or rhonchi. GASTROINTESTINAL: Abdomen soft, non-tender, nondistended. Bowel Sounds normoactive x4. : Marvin catheter draining yellow urine clear MUSCULOSKELETAL: Extremities without clubbing, cyanosis, +1 bilateral lower extremity edema. NEUROLOGICAL: Awake and alert. Oriented x 3. No focal neuro deficit. MCLEOD. Normal speech. Procedures Right IJ central line 3/2 Excision and debridement necrotizing soft tissue infection, left axilla 40 x 25 cm. 11/20 Vac change with irrigation and debridement of large necrotizing fasciitis wound. 11/22 1. Partial closure of large open wound. 2. I&D large complex wound. 3. Replacement of VAC. A/P Problem List: (1) Anemia ICD Code: D64.9 Status: Acute (2) BLESSING (acute kidney injury) ICD Code: N17.9 Status: Acute (3) UTI (lower urinary tract infection) ICD Code: N39.0 Status: Acute (4) Morbid obesity ICD Code: E66.01 Status: Acute (5) Abscess of chest wall ICD Code: L02.213 Status: Acute (6) Hypertension ICD Code: I10 Status: Acute (7) Chronic acquired lymphedema ICD Code: I89.0 Status: Acute (8) Necrotizing fasciitis ICD Code: M72.6 Status: Acute Assessment and Plan Patient is a 66-year-old morbidly obese female with past medical history of hypertension, bilateral lower extremity lymphedema was undergone operative debridement of necrotizing fasciitis of left axilla, chest, back. Reportedly, developed a boil in the left axilla after shaving. This eventually drained spontaneously and showed some initial improvement. She then developed blisters of the axilla and chest wall. She developed some drainage from left chest. She had subjective fevers. She presented to [facility] ED where Dr. Lainez was consulted emergently for evaluation for necrotizing fasciitis. She was taken emergently to OR where she underwent debridement of left axilla, breast, left chest wall, back with wound VAC placement. Depression Postoperative pain management - [employer] Dilaudid discontinued - Continue Percocet and IV Dilaudid as needed - Counseled regarding narcotics Acute hypoxemic respiratory failure/postop - Nasal cannula to maintain saturations greater than equal to 92% note currently in room air - Incentive spirometry while awake Septic shock - resolved History of hypertension Chronic lymphedema - On metoprolol 25 twice a day Morbid obesity - Heart healthy diet - Protonix for GI prophylaxis - Colace/as needed Senokot for bowel regimen - DC telemetry Hypokalemia - resolved BLESSING - Renal sonogram with no obstruction. Consulted renal, acute kidney injury secondary to vancomycin and hypoperfusion - Marvin in place. Monitor intake and output. We'll discontinue Marvin once patient out of bed - Monitor creatinine 1.90 --> 1.72 --> 1.90 Septic shock Necrotizing fasciitis left axilla/chest wall /breast. Status post debridement of the chest wall, axilla and back by Dr. Lainez 11/16/16 with wound VAC placement. - Returned to OR for further debridement - Empiric coverage with Zosyn, stop per infectious disease.Blood cultures no growth but still with significant leukocytosis - slightly improved - Intraoperative wound culture staph aureus, Escherichia coli CXR with multifocal opacities. - Negative C. difficile, likely antibiotic induced. Leukocytosis improving. Leukocytosis Normocytic anemia Thrombocytosis - likely reactive secondary to infection/inflammation - Bilateral lower ultrasound negative for DVT 11/16/16. - Transfused 2 units of PRBCs on 11/18 for hemoglobin of 7. Agrees to be transfused with 2 units of packed RBC again today hemoglobin of 7. Hemoccult negative. - Peripheral smear showed leukocytosis and neutrophilia with reactive features and left shift. Severe normochromic, normocytic anemia - fibrinogen 491 possible increase secondary to inflammatory process Headache-Tylenol as needed Hyperkalemia-will give Kayexalate, recheck tomorrow Hyperglycemia of critical illness. Stable - Discontinue sliding scale every 6 hours. Protonix 40 mg daily for stress ulcer prophylaxis. Heparin for DVT prophylaxis Discharge Planning Will eventually need rehabilitation, possibly [place] rehabilitation Problem Qualifiers (1) Morbid obesity: Qualified Code: E66.01 - Morbid obesity, unspecified obesity type (2) Hypertension: Qualified Code: I10 - Essential hypertension James Trejo MD Dec 03, 2016 11:18
[2016-12-03] MEDS ORDERED: SODIUM POLYSTYRENE SULFONATE SUSP 15 GM/60 ML CUP PO ONE (11:30)
[2016-12-03 12:00] VITALS: BP 135/88; PULSE 85; RESP 18; TEMP 97.7; O2SAT 99
[2016-12-03] MEDS: ACETAMINOPHEN 325 MG TAB PO PRN (12:07)
[2016-12-03] MEDS: CHLORHEXIDINE 0.12% (ORAL KIT) 15 ML CUP MT SCH (20:00)
[2016-12-03 20:33] VITALS: BP 161/91; PULSE 90; RESP 18; TEMP 98.9; O2SAT 98
[2016-12-03] MEDS: HYDROmorphone HCL PF 1 MG/ML VIAL IV PUSH PRN (20:58)
[2016-12-04 00:13] VITALS: BP 158/86; PULSE 87; RESP 18; TEMP 98.4; O2SAT 96
[2016-12-04] MEDS: HEPARIN SODIUM - SQ 10,000 UNITS/ML VIAL SQ SCH ×4 (00:33→23:27)
[2016-12-04] MEDS: hydrOXYzine PAMOATE 25 MG CAP PO PRN ×2 (00:33→11:06)
[2016-12-04] MEDS: CHLORHEXIDINE GLUCONATE 2 % 1 PACK (2 CLOTHS) TOP SCH (04:00)
[2016-12-04] MEDS: ACETAMINOPHEN 325 MG TAB PO PRN (06:38)
[2016-12-04 07:00] LABS: BICARBONATE 26.5 MEQ/L (21.0-32.0); POTASSIUM 4.1 MEQ/L (3.5-5.1)
[2016-12-04 08:00] VITALS: BP 163/85; PULSE 84; RESP 18; TEMP 98.4; O2SAT 96
[2016-12-04] MEDS: DOCUSATE SODIUM 100 MG CAP TUBE SCH ×2 (09:00→21:48)
--- NOTE | 2016-12-04 09:43 | HHI.PR ---
Subjective Remarks Follow-up for headache and chest wall tenderness Chest wall pain about the same, partially relieved by pain medications. Headache bitemporal better, mild photophobia, no nausea, vomiting, focal weakness or neck stiffness. Afebrile. Objective Vitals Vital Signs Date Time Temp Pulse Resp B/P Pulse Ox O2 Delivery O2 Flow Rate FiO2 12/04/16 08:00 98.4 84 18 163/85 96 12/04/16 00:36 19 12/04/16 00:13 98.4 87 18 158/86 96 12/03/16 20:33 98.9 90 18 161/91 98 12/03/16 12:00 97.7 85 18 135/88 99 I/O 12/03/16 12/03/16 12/03/16 12/04/16 12/04/16 12/04/16 07:00 15:00 23:00 07:00 15:00 23:00 Intake Total 480 ml 240 ml 480 ml 380 ml Output Total 700 ml 1150 ml 1050 ml 1450 ml Balance -220 ml -910 ml -570 ml -1070 ml Intake Oral 480 ml 240 ml 480 ml 380 ml Output Urine Total 650 ml 1150 ml 1000 ml 1400 ml Drainage Total 50 ml 50 ml 50 ml # Bowel Movements 2 1 Result Diagram: 12/02/16 1124 12/04/16 0516 Objective Remarks GENERAL: This is a morbidly obese female patient, in no apparent distress. SKIN: Dressings left axilla chest region in place, clean, mildly tender, no swelling. HEENT: Normocephalic. Pupils equal round and reactive. NECK: Trachea midline. No JVD. Supple. CARDIOVASCULAR: Regular rate and rhythm without murmurs, gallops, or rubs. Chest dressings in place. RESPIRATORY: Clear to auscultation. Breath sounds equal bilaterally. No wheezes , rales, or rhonchi. GASTROINTESTINAL: Abdomen soft, non-tender, nondistended. Bowel Sounds normoactive x4. : Marvin catheter draining yellow urine clear MUSCULOSKELETAL: Extremities without clubbing, cyanosis, +1 bilateral lower extremity edema. NEUROLOGICAL: Awake and alert. Oriented x 3. No focal neuro deficit. MCLEOD. Normal speech. Procedures Right IJ central line 3/2 Excision and debridement necrotizing soft tissue infection, left axilla 40 x 25 cm. 3/5 Vac change with irrigation and debridement of large necrotizing fasciitis wound. 11/22 1. Partial closure of large open wound. 2. I&D large complex wound. 3. Replacement of VAC. A/P Problem List: (1) Anemia ICD Code: D64.9 Status: Acute (2) BLESSING (acute kidney injury) ICD Code: N17.9 Status: Acute (3) UTI (lower urinary tract infection) ICD Code: N39.0 Status: Acute (4) Morbid obesity ICD Code: E66.01 Status: Acute (5) Abscess of chest wall ICD Code: L02.213 Status: Acute (6) Hypertension ICD Code: I10 Status: Acute (7) Chronic acquired lymphedema ICD Code: I89.0 Status: Acute (8) Necrotizing fasciitis ICD Code: M72.6 Status: Acute Assessment and Plan Patient is a 66-year-old morbidly obese female with past medical history of hypertension, bilateral lower extremity lymphedema was undergone operative debridement of necrotizing fasciitis of left axilla, chest, back. Reportedly, developed a boil in the left axilla after shaving. This eventually drained spontaneously and showed some initial improvement. She then developed blisters of the axilla and chest wall. She developed some drainage from left chest. She had subjective fevers. She presented to [facility] ED where Dr. Lainez was consulted emergently for evaluation for necrotizing fasciitis. She was taken emergently to OR where she underwent debridement of left axilla, breast, left chest wall, back with wound VAC placement. Septic shock secondary to Necrotizing fasciitis left axilla/chest wall /breast. -Status post debridement of the chest wall, axilla and back by Dr. Lainez with wound VAC placement. - Return to OR for further debridement , at some point, will need skin graft - Empiric coverage with Zosyn, stop per infectious disease.Blood cultures no growth but still with significant leukocytosis - slightly improved - Intraoperative wound culture staph aureus, Escherichia coli, urine culture grew Escherichia coli and lactobacillus. Off antibiotics, repeat CBC. Depression Postoperative pain management - Continue Percocet and IV Dilaudid as needed, when the next few days. - Counseled regarding narcotics Acute hypoxemic respiratory failure/postop - Nasal cannula to maintain saturations greater than equal to 92% note currently in room air - Incentive spirometry while awake History of hypertension - On metoprolol 25 twice a day and hydralazine 25 mg every 12 hours. Clonidine as needed. Morbid obesity - Heart healthy diet - Colace/as needed Senokot for bowel regimen BLESSING - Renal sonogram with no obstruction. Consulted renal, acute kidney injury secondary to vancomycin and hypoperfusion - Marvin in place. Monitor intake and output. We'll discontinue Marvin once patient out of bed, creatinine stable Diarrhea - Negative C. difficile, likely antibiotic induced. Leukocytosis improving. Leukocytosis Normocytic anemia Thrombocytosis - likely reactive secondary to infection/inflammation - Bilateral lower ultrasound negative for DVT 11/16/16. - Transfused 4 units of PRBCs. Hemoccult negative. Peripheral smear showed leukocytosis and neutrophilia with reactive features and left shift. Severe normochromic, normocytic anemia, fibrinogen 491 possible increase secondary to inflammatory process Headache-Tylenol as needed, start Imitrex if no resolution, possible migraine Hyperkalemia- resolved with Kayexalate. Hyperglycemia of critical illness. Stable - Discontinue sliding scale every 6 hours. Protonix 40 mg daily for stress ulcer prophylaxis. Heparin for DVT prophylaxis Discharge Planning Will eventually need rehabilitation, possibly [place] rehabilitation Problem Qualifiers (1) Morbid obesity: Qualified Code: E66.01 - Morbid obesity, unspecified obesity type (2) Hypertension: Qualified Code: I10 - Essential hypertension James Trejo MD Dec 04, 2016 09:43 James Trejo MD Dec 04, 2016 09:43
--- NOTE | 2016-12-04 10:23 | HHI.NPPN ---
Subjective Complaints: Obesity General Problems: Edema, Obesity Renal Failure: Acute Additional Remarks This in the note for 12/03, patient seen yesterday at 2.00 pm. Patient is alert, no SOB, has leg edema, no vomiting. Review of Systems General Constitutional: Fatigue Cardiovascular Cardiac: LIND Musculoskeletal MS: Pain/Stiffness Objective Data Data 12/03/16 12/04/16 19:00 07:00 Intake Total 240 ml 860 ml Output Total 1200 ml 2450 ml Balance -960 ml -1590 ml Intake Oral 240 ml 860 ml Output Urine Total 1150 ml 2400 ml Drainage Total 50 ml 50 ml # Bowel Movements 1 Vital Signs Date Time Temp Pulse Resp B/P Pulse Ox O2 Delivery O2 Flow Rate FiO2 12/04/16 08:00 98.4 84 18 163/85 96 12/04/16 00:36 19 12/04/16 00:13 98.4 87 18 158/86 96 12/03/16 20:33 98.9 90 18 161/91 98 12/03/16 12:00 97.7 85 18 135/88 99 -: 12/02/16 1124 12/04/16 0516 Tubes & Lines: Bajwa Physical Exam General Appearance: Well Developed, Well Nourished, Comfortable, Painful, Obese Throat Throat Exam: Oral Mucosa [place] & Moist Pulmonary Resp Exam: Clear Bilaterally, Breath Sounds Equal, No Distress Cardiology CV Exam: Normal Sinus Rhythm, Good Perfusion Gastrointestinal/Abdomen GI Exam: Soft, Non-Tender, Bowel Sounds Present Musculoskeletal MS Exam: Normal Tone Integumentary Skin Exam: Warm, Dry Extremeties Extremities Exam: Moderate Edema, Pitting Edema Neurologic Neuro Exam: Alert, Awake, Oriented Psychiatric Psych Exam: Appropriate Responses Assessment/Plan Problem List: (1) BLESSING (acute kidney injury) Plan: Likely developed ATN due to hypoperfusion injury and vancomycin toxicity. Renal function has been improving, awaiting repeat draw Monitor urine output and renal function. No BMP today, K was 5.2 yesterday. Just got Kayexalate, check BMP in AM. (2) Abscess of chest wall Plan: s/p I&D, wound vac in place CHIEF TECHNICIAN was discontinued, now on intermittent pain medications (3) UTI (lower urinary tract infection) Plan: on zosyn remove bajwa when able (4) Anemia Plan: Hb improved, transfused ThursPaulino Mayo MD Dec 04, 2016 10:23
[2016-12-04] MEDS: METOPROLOL TARTRATE 25 MG TAB PO SCH ×2 (11:06→21:48)
[2016-12-04] MEDS: LACTOBACILLUS ACIDOPHILUS TAB PO SCH ×3 (11:06→18:28)
[2016-12-04] MEDS: oxyCODONE/ACETAMINOPHEN 10 MG/325 MG TAB PO PRN (11:12)
--- NOTE | 2016-12-04 11:12 | HHI.NPPN ---
Subjective Complaints: Obesity General Problems: Edema, Obesity Renal Failure: Acute Additional Remarks Patient is alert, no SOB, has leg edema, eating better. Review of Systems General Constitutional: Fatigue Cardiovascular Cardiac: LIND Musculoskeletal MS: Pain/Stiffness Objective Data Data 12/03/16 12/04/16 19:00 07:00 Intake Total 240 ml 860 ml Output Total 1200 ml 2450 ml Balance -960 ml -1590 ml Intake Oral 240 ml 860 ml Output Urine Total 1150 ml 2400 ml Drainage Total 50 ml 50 ml # Bowel Movements 1 Vital Signs Date Time Temp Pulse Resp B/P Pulse Ox O2 Delivery O2 Flow Rate FiO2 12/04/16 08:00 98.4 84 18 163/85 96 12/04/16 00:36 19 12/04/16 00:13 98.4 87 18 158/86 96 12/03/16 20:33 98.9 90 18 161/91 98 12/03/16 12:00 97.7 85 18 135/88 99 -: 12/02/16 1124 12/04/16 0516 Tubes & Lines: Bajwa Physical Exam General Appearance: Well Developed, Well Nourished, Comfortable, Painful, Obese Throat Throat Exam: Oral Mucosa [place] & Moist Pulmonary Resp Exam: Clear Bilaterally, Breath Sounds Equal, No Distress Cardiology CV Exam: Normal Sinus Rhythm, Good Perfusion Gastrointestinal/Abdomen GI Exam: Soft, Non-Tender, Bowel Sounds Present Musculoskeletal MS Exam: Normal Tone Integumentary Skin Exam: Warm, Dry Extremeties Extremities Exam: Moderate Edema, Pitting Edema Neurologic Neuro Exam: Alert, Awake, Oriented Psychiatric Psych Exam: Appropriate Responses Assessment/Plan Problem List: (1) BLESSING (acute kidney injury) Plan: Likely developed ATN due to hypoperfusion injury and vancomycin toxicity. Renal function has been improving, awaiting repeat draw Monitor urine output and renal function. Urine out put is better. K is now normal and Creatinine improving. 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
[2016-12-04] MEDS: hydrALAZINE HCL 25 MG TAB PO SCH ×2 (11:21→21:48)
[2016-12-04] MEDS: SODIUM CHLORIDE 0.9% FLUSH 5 ML FLUSH IV FLUSH SCH ×2 (11:21→21:49)
[2016-12-04 12:00] VITALS: BP 125/66; PULSE 86; RESP 19; TEMP 98.7; O2SAT 98
[2016-12-04 16:00] VITALS: BP 128/72; PULSE 85; RESP 17; TEMP 98.2; O2SAT 96
[2016-12-04] MEDS: CHLORHEXIDINE 0.12% (ORAL KIT) 15 ML CUP MT SCH (20:00)
[2016-12-04 20:12] VITALS: BP 177/89; PULSE 82; RESP 20; TEMP 97.7; O2SAT 98
[2016-12-04] MEDS: HYDROmorphone HCL PF 1 MG/ML VIAL IV PUSH PRN (22:00)
[2016-12-04] MEDS: diphenhydrAMINE HCL 25 MG CAP PO PRN (22:01)
[2016-12-05 00:26] VITALS: BP 138/78; PULSE 84; RESP 20; TEMP 98.9; O2SAT 96
[2016-12-05] MEDS: CHLORHEXIDINE GLUCONATE 2 % 1 PACK (2 CLOTHS) TOP SCH (03:05)
[2016-12-05] MEDS: oxyCODONE/ACETAMINOPHEN 10 MG/325 MG TAB PO PRN ×3 (05:14→17:51)
[2016-12-05 05:30] LABS: BICARBONATE 22.2 MEQ/L (21.0-32.0); POTASSIUM 4.3 MEQ/L (3.5-5.1)
[2016-12-05] MEDS: CHLORHEXIDINE 0.12% (ORAL KIT) 15 ML CUP MT SCH ×2 (07:12→20:00)
[2016-12-05 07:30] LABS: AUTOMATED NEUTROPHIL # 10.1 TH/MM3 (1.8-7.7); BASOPHIL # 0.2 TH/MM3 (0-0.2); BASOPHIL % 1.1 % (0.0-2.0); EOSINOPHIL # 0.7 TH/MM3 (0-0.4); EOSINOPHIL % 5.2 % (0.0-4.0); HEMATOCRIT 28.7 % (35.0-46.0); HEMO FLAGS DIFF FINAL; LYMPH % 11.7 % (9.0-44.0); LYMPHOCYTE # 1.6 TH/MM3 (1.0-4.8); MEAN CELL VOLUME 85.5 FL (80.0-100.0); MEAN CORPUSCULAR HEMOGLOBIN 28.1 PG (27.0-34.0); MEAN CORPUSCULAR HGB CONC 32.9 % (32.0-36.0); PLATELET COUNT 360 TH/MM3 (150-450); RED BLOOD COUNT 3.35 MIL/MM3 (4.00-5.30); RED CELL DISTRIBUTION WIDTH 18.1 % (11.6-17.2); WHITE BLOOD COUNT 13.9 TH/MM3 (4.0-11.0)
[2016-12-05 08:00] VITALS: BP 184/97; PULSE 81; RESP 20; TEMP 96.9; O2SAT 99
[2016-12-05] MEDS: PANTOPRAZOLE SOD 40 MG DELAYED RELEASE TAB PO SCH (08:17)
[2016-12-05] MEDS: SODIUM CHLORIDE 0.9% FLUSH 5 ML FLUSH IV FLUSH SCH ×2 (08:17→22:33)
[2016-12-05] MEDS: DOCUSATE SODIUM 100 MG CAP TUBE SCH ×2 (08:17→21:00)
[2016-12-05] MEDS: hydrALAZINE HCL 25 MG TAB PO SCH ×2 (08:17→22:30)
[2016-12-05] MEDS: METOPROLOL TARTRATE 25 MG TAB PO SCH ×2 (08:17→22:30)
[2016-12-05] MEDS: LACTOBACILLUS ACIDOPHILUS TAB PO SCH ×3 (08:17→17:49)
[2016-12-05] MEDS: HEPARIN SODIUM - SQ 10,000 UNITS/ML VIAL SQ SCH ×3 (08:18→22:32)
--- NOTE | 2016-12-05 11:29 | HHI.NPPN ---
Subjective Complaints: Obesity General Problems: Edema, Obesity Renal Failure: Acute Interval History renal function is better. Good urine output. She is working with physical therapy. (Amy Fernandes) Review of Systems General Constitutional: Fatigue (Amy Fernandes) Cardiovascular Cardiac: LIND (Amy Fernandes) Musculoskeletal MS: Pain/Stiffness (Amy Fernandes) Objective Data Data 12/04/16 12/05/16 19:00 07:00 Intake Total 240 ml 840 ml Output Total 1000 ml 2400 ml Balance -760 ml -1560 ml Intake Oral 240 ml 840 ml Output Urine Total 1000 ml 2200 ml Drainage Total 200 ml # Bowel Movements 0 3 Vital Signs Date Time Temp Pulse Resp B/P Pulse Ox O2 Delivery O2 Flow Rate FiO2 12/05/16 08:15 18 12/05/16 08:00 96.9 81 20 184/97 99 12/05/16 00:26 98.9 84 20 138/78 96 12/04/16 20:12 97.7 82 20 177/89 98 12/04/16 16:00 98.2 85 17 128/72 96 12/04/16 12:00 98.7 86 19 125/66 98 (Amy Fernandes) -: 12/05/16 0431 12/05/16 0431 Tubes & Lines: Bajwa (Amy Fernandes) Physical Exam General Appearance: Well Developed, Well Nourished, No Acute Distress, Comfortable, Obese (Amy Fernandes) Throat Throat Exam: Oral Mucosa [place] & Moist (Amy Fernandes) Pulmonary Resp Exam: Clear Bilaterally, Breath Sounds Equal, No Distress (Amy Fernandes) Cardiology CV Exam: Normal Sinus Rhythm, Good Perfusion (Amy Fernandes) Gastrointestinal/Abdomen GI Exam: Soft, Non-Tender, Bowel Sounds Present (Amy Fernandes) Musculoskeletal MS Exam: Normal Tone (Amy Fernandes) Integumentary Skin Exam: Warm, Dry Skin Remarks wound vac left breast (Amy Fernandes) Extremeties Extremities Exam: Moderate Edema, Pitting Edema Extremeties Remarks left arm edema (Amy Fernandes) Neurologic Neuro Exam: Alert, Awake, Oriented (Amy Fernandes) Psychiatric Psych Exam: Appropriate Responses (Amy Fernandes) Assessment/Plan Problem List: (1) BLESSING (acute kidney injury) Plan: Likely developed ATN due to hypoperfusion injury and vancomycin toxicity. 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 Agree with above assessment and plan. We will see her as needed. Renal function has improved. (Juan Francisco Cruz MD) Amy Fernandes Dec 05, 2016 11:28 Juan Francisco Cruz MD Dec 06, 2016 11:37
[2016-12-05 12:00] VITALS: BP 166/97; PULSE 87; RESP 19; TEMP 97; O2SAT 98
[2016-12-05] MEDS: HYDROmorphone HCL PF 1 MG/ML VIAL IV PUSH PRN ×2 (12:34→22:42)
[2016-12-05 16:00] VITALS: BP 141/81; PULSE 83; RESP 16; TEMP 96.6; O2SAT 98
--- NOTE | 2016-12-05 17:05 | HHI.PR ---
Subjective Remarks Follow-up for headache Headache resolved, no further complaints this morning. Wound is looking good, more beefy, has serous discharge but otherwise no purulent discharge, does not seem infected per wound care nurse. I was present during the better half of the dressing change. Afebrile Objective Vitals Vital Signs Date Time Temp Pulse Resp B/P Pulse Ox O2 Delivery O2 Flow Rate FiO2 12/05/16 16:00 96.6 83 16 141/81 98 12/05/16 13:14 18 12/05/16 13:04 19 12/05/16 12:00 97.0 87 19 166/97 98 12/05/16 08:00 96.9 81 20 184/97 99 12/05/16 00:26 98.9 84 20 138/78 96 12/04/16 20:12 97.7 82 20 177/89 98 I/O 12/04/16 12/04/16 12/04/16 12/05/16 12/05/16 12/05/16 07:00 15:00 23:00 07:00 15:00 23:00 Intake Total 380 ml 240 ml 360 ml 480 ml 500 ml Output Total 1450 ml 1000 ml 1350 ml 1050 ml 1100 ml Balance -1070 ml -760 ml -990 ml -570 ml -600 ml Intake Oral 380 ml 240 ml 360 ml 480 ml 500 ml IV Total 0 ml Output Urine Total 1400 ml 1000 ml 1200 ml 1000 ml 1100 ml Drainage Total 50 ml 150 ml 50 ml 0 ml # Bowel Movements 0 2 1 1 Result Diagram: 12/05/1643012/05/16430 Objective Remarks GENERAL: This is a morbidly obese female patient, in no apparent distress. HEENT: Normocephalic. Pupils equal round and reactive. NECK: Trachea midline. No JVD. Supple. CARDIOVASCULAR: Regular rate and rhythm without murmurs, gallops, or rubs. Chest/axillary dressings in place, positive for serous drainage, does not seem infected. RESPIRATORY: Clear to auscultation. Breath sounds equal bilaterally. No wheezes , rales, or rhonchi. GASTROINTESTINAL: Abdomen soft, non-tender, nondistended. Bowel Sounds normoactive x4. : Marvin catheter draining yellow urine clear MUSCULOSKELETAL: Extremities without clubbing, cyanosis, trace lower extremity edema. NEUROLOGICAL: Awake and alert. Oriented x 3. No focal neuro deficit. MCLEOD. Normal speech. Procedures Right IJ central line 3/ Excision and debridement necrotizing soft tissue infection, left axilla 40 x 25 cm. 11/20 Vac change with irrigation and debridement of large necrotizing fasciitis wound. 11/22 1. Partial closure of large open wound. 2. I&D large complex wound. 3. Replacement of VAC. A/P Problem List: (1) Anemia ICD Code: D64.9 Status: Acute (2) BLESSING (acute kidney injury) ICD Code: N17.9 Status: Acute (3) UTI (lower urinary tract infection) ICD Code: N39.0 Status: Acute (4) Morbid obesity ICD Code: E66.01 Status: Acute (5) Abscess of chest wall ICD Code: L02.213 Status: Acute (6) Hypertension ICD Code: I10 Status: Acute (7) Chronic acquired lymphedema ICD Code: I89.0 Status: Acute (8) Necrotizing fasciitis ICD Code: M72.6 Status: Acute Assessment and Plan Patient is a 66-year-old morbidly obese female with past medical history of hypertension, bilateral lower extremity lymphedema was undergone operative debridement of necrotizing fasciitis of left axilla, chest, back. Reportedly, developed a boil in the left axilla after shaving. This eventually drained spontaneously and showed some initial improvement. She then developed blisters of the axilla and chest wall. She developed some drainage from left chest. She had subjective fevers. She presented to [facility] [place] [facility] where Dr. Lainez was consulted emergently for evaluation for necrotizing fasciitis. She was taken emergently to OR where she underwent debridement of left axilla, breast, left chest wall, back with wound VAC placement. Septic shock secondary to Necrotizing fasciitis left axilla/chest wall /breast. -Status post debridement of the chest wall, axilla and back by Dr. Lainez with wound VAC placement. - Return to OR for further debridement , at some point, will need skin graft - Empiric coverage with Zosyn, stop per infectious disease.Blood cultures no growth but still with significant leukocytosis - slightly improved - Intraoperative wound culture staph aureus, Escherichia coli, urine culture grew Escherichia coli and lactobacillus. Off antibiotics, leukocytosis to 29 at 13.9, wound does not seem infected, continue present management. Depression Postoperative pain management - Continue Percocet and IV Dilaudid as needed, when the next few days. - Counseled regarding narcotics Acute hypoxemic respiratory failure/postop - Nasal cannula to maintain saturations greater than equal to 92% note currently in room air - Incentive spirometry while awake History of hypertension - On metoprolol 25 twice a day and hydralazine 25 mg every 12 hours. Clonidine as needed. Morbid obesity - Heart healthy diet - Colace/as needed Senokot for bowel regimen BLESSING - Renal sonogram with no obstruction. Consulted renal, acute kidney injury secondary to vancomycin and hypoperfusion - Marvin in place. Monitor intake and output. We'll discontinue Marvin once patient out of bed, creatinine stable Diarrhea - Negative C. difficile, likely antibiotic induced. Leukocytosis improving. Leukocytosis Normocytic anemia Thrombocytosis - likely reactive secondary to infection/inflammation - Bilateral lower ultrasound negative for DVT 11/16/16. - Transfused 4 units of PRBCs. Hemoccult negative. Peripheral smear showed leukocytosis and neutrophilia with reactive features and left shift. Severe normochromic, normocytic anemia, fibrinogen 491 possible increase secondary to inflammatory process Headache-Tylenol as needed, start Imitrex if no resolution, possible migraine Hyperkalemia- resolved with Kayexalate. Hyperglycemia of critical illness. Stable - Discontinue sliding scale every 6 hours. Protonix 40 mg daily for stress ulcer prophylaxis. Heparin for DVT prophylaxis Discharge Planning Will eventually need rehabilitation, possibly [place] rehabilitation Problem Qualifiers (1) Morbid obesity: Qualified Code: E66.01 - Morbid obesity, unspecified obesity type (2) Hypertension: Qualified Code: I10 - Essential hypertension Jaems Trejo MD Dec 05, 2016 17:05
[2016-12-05] MEDS: diphenhydrAMINE HCL 25 MG CAP PO PRN (17:51)
[2016-12-05 20:00] VITALS: BP 136/89; PULSE 63; RESP 20; TEMP 98.3; O2SAT 96
[2016-12-06] VITALS (7 sets, daily range): BP systolic 140–188; BP diastolic 82–103; PULSE 79–86; RESP 17–21; TEMP 96.3–97.9; O2SAT 97–100
[2016-12-06] MEDS: diphenhydrAMINE HCL 25 MG CAP PO PRN ×3 (02:45→16:16)
[2016-12-06] MEDS: oxyCODONE/ACETAMINOPHEN 10 MG/325 MG TAB PO PRN ×3 (02:45→16:16)
[2016-12-06] MEDS: CHLORHEXIDINE GLUCONATE 2 % 1 PACK (2 CLOTHS) TOP SCH (02:46)
[2016-12-06] MEDS: CHLORHEXIDINE 0.12% (ORAL KIT) 15 ML CUP MT SCH ×2 (06:58→20:00)
[2016-12-06] MEDS: hydrALAZINE HCL 25 MG TAB PO SCH ×2 (07:48→21:19)
[2016-12-06] MEDS: LACTOBACILLUS ACIDOPHILUS TAB PO SCH ×3 (07:48→16:16)
[2016-12-06] MEDS: PANTOPRAZOLE SOD 40 MG DELAYED RELEASE TAB PO SCH (07:48)
[2016-12-06] MEDS: SODIUM CHLORIDE 0.9% FLUSH 5 ML FLUSH IV FLUSH SCH ×2 (07:48→21:20)
[2016-12-06] MEDS: DOCUSATE SODIUM 100 MG CAP TUBE SCH ×2 (07:48→21:00)
[2016-12-06] MEDS: HEPARIN SODIUM - SQ 10,000 UNITS/ML VIAL SQ SCH ×2 (07:48→16:16)
[2016-12-06] MEDS: METOPROLOL TARTRATE 25 MG TAB PO SCH ×2 (07:48→21:19)
--- NOTE | 2016-12-06 13:08 | HHI.PR ---
Subjective Remarks Follow-up for left axillary 1 Afebrile, pain is controlled. No nausea or vomiting. No diarrhea. No further headaches Objective Vitals Vital Signs Date Time Temp Pulse Resp B/P Pulse Ox O2 Delivery O2 Flow Rate FiO2 12/06/16 12:27 155/98 12/06/16 12:00 96.9 83 18 188/103 98 12/06/16 10:36 16 12/06/16 08:00 97.9 85 19 140/84 97 12/06/16 04:00 96.3 86 21 140/82 98 12/06/16 00:00 97.1 84 20 162/88 99 12/05/16 20:00 98.3 63 20 136/89 96 12/05/16 16:00 96.6 83 16 141/81 98 I/O 12/05/16 12/05/16 12/05/16 12/06/16 12/06/16 12/06/16 07:00 15:00 23:00 07:00 15:00 23:00 Intake Total 480 ml 500 ml 240 ml 360 ml Output Total 1050 ml 1100 ml 450 ml 1250 ml Balance -570 ml -600 ml -210 ml -890 ml Intake Oral 480 ml 500 ml 240 ml 360 ml IV Total 0 ml 0 ml Output Urine Total 1000 ml 1100 ml 400 ml 1200 ml Drainage Total 50 ml 0 ml 50 ml 50 ml # Bowel Movements 1 1 0 0 Result Diagram: 12/05/1643012/05/16430 Objective Remarks GENERAL: This is a morbidly obese female patient, in no apparent distress. HEENT: Normocephalic. Pupils equal round and reactive. NECK: Trachea midline. No JVD. Supple. CARDIOVASCULAR: Regular rate and rhythm without murmurs, gallops, or rubs. Chest/axillary dressings in place, positive for serous drainage, does not seem infected. RESPIRATORY: Clear to auscultation. Breath sounds equal bilaterally. No wheezes , rales, or rhonchi. GASTROINTESTINAL: Abdomen soft, non-tender, nondistended. Bowel Sounds normoactive x4. : Marvin catheter draining yellow urine clear MUSCULOSKELETAL: Extremities without clubbing, cyanosis, trace lower extremity edema. NEUROLOGICAL: Awake and alert. Oriented x 3. No focal neuro deficit. MCLEOD. Normal speech. Procedures Right IJ central line 3/2 Excision and debridement necrotizing soft tissue infection, left axilla 40 x 25 cm. 11/20 Vac change with irrigation and debridement of large necrotizing fasciitis wound. 11/22 1. Partial closure of large open wound. 2. I&D large complex wound. 3. Replacement of VAC. A/P Problem List: (1) Anemia ICD Code: D64.9 Status: Acute (2) BLESSING (acute kidney injury) ICD Code: N17.9 Status: Acute (3) UTI (lower urinary tract infection) ICD Code: N39.0 Status: Acute (4) Morbid obesity ICD Code: E66.01 Status: Acute (5) Abscess of chest wall ICD Code: L02.213 Status: Acute (6) Hypertension ICD Code: I10 Status: Acute (7) Chronic acquired lymphedema ICD Code: I89.0 Status: Acute (8) Necrotizing fasciitis ICD Code: M72.6 Status: Acute Assessment and Plan Patient is a 66-year-old morbidly obese female with past medical history of hypertension, bilateral lower extremity lymphedema was undergone operative debridement of necrotizing fasciitis of left axilla, chest, back. Reportedly, developed a boil in the left axilla after shaving. This eventually drained spontaneously and showed some initial improvement. She then developed blisters of the axilla and chest wall. She developed some drainage from left chest. She had subjective fevers. She presented to [facility] ED where Dr. Lainez was consulted emergently for evaluation for necrotizing fasciitis. She was taken emergently to OR where she underwent debridement of left axilla, breast, left chest wall, back with wound VAC placement. Septic shock secondary to Necrotizing fasciitis left axilla/chest wall /breast. -Status post debridement of the chest wall, axilla and back by Dr. Lainez with wound VAC placement. - Return to OR for further debridement , at some point, will need skin graft - Empiric coverage with Zosyn, stop per infectious disease.Blood cultures no growth but still with significant leukocytosis - slightly improved - Intraoperative wound culture staph aureus, Escherichia coli, urine culture grew Escherichia coli and lactobacillus. Off antibiotics, leukocytosis to 29 at 13.9, wound does not seem infected, continue present management. Further management per surgery. Depression Postoperative pain management - Continue Percocet and IV Dilaudid as needed, when the next few days. - Counseled regarding narcotics Acute hypoxemic respiratory failure/postop - Nasal cannula to maintain saturations greater than equal to 92% note currently in room air - Incentive spirometry while awake History of hypertension - On metoprolol 25 twice a day and hydralazine 25 mg every 12 hours. Clonidine as needed. Morbid obesity - Heart healthy diet - Colace/as needed Senokot for bowel regimen BLESSING - Renal sonogram with no obstruction. Consulted renal, acute kidney injury secondary to vancomycin and hypoperfusion - Marvin in place. Monitor intake and output. We'll discontinue Marvin once patient out of bed, creatinine stable Diarrhea - Negative C. difficile, likely antibiotic induced. Leukocytosis improving. Leukocytosis Normocytic anemia Thrombocytosis - likely reactive secondary to infection/inflammation - Bilateral lower ultrasound negative for DVT 11/16/16. - Transfused 4 units of PRBCs. Hemoccult negative. Peripheral smear showed leukocytosis and neutrophilia with reactive features and left shift. Severe normochromic, normocytic anemia, fibrinogen 491 possible increase secondary to inflammatory process Headache-Tylenol as needed, start Imitrex if no resolution, possible migraine Hyperkalemia- resolved with Kayexalate. Hyperglycemia of critical illness. Stable - Discontinue sliding scale every 6 hours. Protonix 40 mg daily for stress ulcer prophylaxis. Heparin for DVT prophylaxis Discharge Planning Will eventually need rehabilitation, possibly [place] rehabilitation Problem Qualifiers (1) Morbid obesity: Qualified Code: E66.01 - Morbid obesity, unspecified obesity type (2) Hypertension: Qualified Code: I10 - Essential hypertension James Trejo MD Dec 06, 2016 13:08
[2016-12-07] VITALS: BP 113/57; PULSE 87; RESP 20; TEMP 98.6; O2SAT 98
[2016-12-07] MEDS: oxyCODONE/ACETAMINOPHEN 10 MG/325 MG TAB PO PRN ×3 (00:11→20:20)
[2016-12-07] MEDS: HEPARIN SODIUM - SQ 10,000 UNITS/ML VIAL SQ SCH ×3 (00:11→16:58)
[2016-12-07] MEDS: diphenhydrAMINE HCL 25 MG CAP PO PRN ×3 (00:11→20:19)
[2016-12-07] MEDS: CHLORHEXIDINE GLUCONATE 2 % 1 PACK (2 CLOTHS) TOP SCH (04:00)
[2016-12-07 07:15] VITALS: BP 136/94; PULSE 78; RESP 17; TEMP 99; O2SAT 96
[2016-12-07] MEDS: CHLORHEXIDINE 0.12% (ORAL KIT) 15 ML CUP MT SCH ×2 (08:00→20:00)
[2016-12-07] MEDS: ACETAMINOPHEN 325 MG TAB PO PRN (09:19)
[2016-12-07] MEDS: LACTOBACILLUS ACIDOPHILUS TAB PO SCH ×3 (09:19→18:05)
[2016-12-07] MEDS: PANTOPRAZOLE SOD 40 MG DELAYED RELEASE TAB PO SCH (09:20)
[2016-12-07] MEDS: hydrALAZINE HCL 25 MG TAB PO SCH ×2 (09:20→20:20)
[2016-12-07] MEDS: DOCUSATE SODIUM 100 MG CAP TUBE SCH ×2 (09:20→20:19)
[2016-12-07] MEDS: METOPROLOL TARTRATE 25 MG TAB PO SCH ×2 (09:20→20:20)
[2016-12-07] MEDS: SODIUM CHLORIDE 0.9% FLUSH 5 ML FLUSH IV FLUSH SCH (09:21)
[2016-12-07 11:53] VITALS: BP 176/92; PULSE 90; RESP 17; TEMP 98.4; O2SAT 100
[2016-12-07] MEDS: HYDROmorphone HCL PF 1 MG/ML VIAL IV PUSH PRN (12:12)
--- NOTE | 2016-12-07 13:13 | HHI.PR ---
Subjective Remarks Follow-up for left axillary wound and headache 1 occasional mild headache which resolved spontaneously, no fever. Wound still looks good, however there is a leak, dressings to be changed today. Objective Vitals Vital Signs Date Time Temp Pulse Resp B/P Pulse Ox O2 Delivery O2 Flow Rate FiO2 12/07/16 11:53 98.4 90 17 176/92 100 12/07/16 07:15 99.0 78 17 136/94 96 12/07/16 00:00 98.6 87 20 113/57 98 12/06/16 20:00 97.8 85 21 165/92 100 12/06/16 17:16 17 12/06/16 16:00 97.0 79 17 140/90 99 I/O 12/06/16 12/06/16 12/06/16 12/07/16 12/07/16 12/07/16 07:00 15:00 23:00 07:00 15:00 23:00 Intake Total 360 ml 600 ml 360 ml 360 ml Output Total 1250 ml 1325 ml 1050 ml 1125 ml Balance -890 ml -725 ml -690 ml -765 ml Intake Oral 360 ml 600 ml 360 ml 360 ml IV Total 0 ml 0 ml 0 ml Output Urine Total 1200 ml 1275 ml 1000 ml 1100 ml Drainage Total 50 ml 50 ml 50 ml 25 ml # Bowel Movements 0 1 0 0 Result Diagram: 12/05/1643012/05/16430 Objective Remarks GENERAL: This is a morbidly obese female patient, in no apparent distress. HEENT: Normocephalic. Pupils equal round and reactive. NECK: Trachea midline. No JVD. Supple. CARDIOVASCULAR: Regular rate and rhythm without murmurs, gallops, or rubs. Chest/axillary dressings in place, positive for serous drainage, does not seem infected. (+) Liquid dressings, no definite discharge. RESPIRATORY: Clear to auscultation. Breath sounds equal bilaterally. No wheezes , rales, or rhonchi. GASTROINTESTINAL: Abdomen soft, non-tender, nondistended. Bowel Sounds normoactive x4. : Marvin catheter draining yellow urine clear MUSCULOSKELETAL: Extremities without clubbing, cyanosis, trace lower extremity edema. NEUROLOGICAL: Awake and alert. Oriented x 3. No focal neuro deficit. MCLEOD. Normal speech. Procedures Right IJ central line 3/2 Excision and debridement necrotizing soft tissue infection, left axilla 40 x 25 cm. 11/20 Vac change with irrigation and debridement of large necrotizing fasciitis wound. 11/22 1. Partial closure of large open wound. 2. I&D large complex wound. 3. Replacement of VAC. A/P Problem List: (1) Anemia ICD Code: D64.9 Status: Acute (2) BLESSING (acute kidney injury) ICD Code: N17.9 Status: Acute (3) UTI (lower urinary tract infection) ICD Code: N39.0 Status: Acute (4) Morbid obesity ICD Code: E66.01 Status: Acute (5) Abscess of chest wall ICD Code: L02.213 Status: Acute (6) Hypertension ICD Code: I10 Status: Acute (7) Chronic acquired lymphedema ICD Code: I89.0 Status: Acute (8) Necrotizing fasciitis ICD Code: M72.6 Status: Acute Assessment and Plan Patient is a 66-year-old morbidly obese female with past medical history of hypertension, bilateral lower extremity lymphedema was undergone operative debridement of necrotizing fasciitis of left axilla, chest, back. Reportedly, developed a boil in the left axilla after shaving. This eventually drained spontaneously and showed some initial improvement. She then developed blisters of the axilla and chest wall. She developed some drainage from left chest. She had subjective fevers. She presented to [facility] [place] ED where Dr. Lainez was consulted emergently for evaluation for necrotizing fasciitis. She was taken emergently to OR where she underwent debridement of left axilla, breast, left chest wall, back with wound VAC placement. Septic shock secondary to Necrotizing fasciitis left axilla/chest wall /breast. -Status post debridement of the chest wall, axilla and back by Dr. Lainez with wound VAC placement. - Return to OR for further debridement , at some point, will need skin graft - Empiric coverage with Zosyn, stop per infectious disease.Blood cultures no growth but still with significant leukocytosis - slightly improved - Intraoperative wound culture staph aureus, Escherichia coli, urine culture grew Escherichia coli and lactobacillus. Off antibiotics, leukocytosis now 13.9, wound does not seem infected, continue present management. Further management per surgery, plastic surgery consulted today for possible skin grafting. Discussed with general surgery. Depression Postoperative pain management - Continue Percocet and IV Dilaudid as needed, when the next few days. - Counseled regarding narcotics Acute hypoxemic respiratory failure/postop - Nasal cannula to maintain saturations greater than equal to 92% note currently in room air - Incentive spirometry while awake History of hypertension - On metoprolol 25 twice a day and hydralazine 25 mg every 12 hours. Clonidine as needed. Morbid obesity - Heart healthy diet - Colace/as needed Senokot for bowel regimen BLESSING - Renal sonogram with no obstruction. Consulted renal, acute kidney injury secondary to vancomycin and hypoperfusion - Marvin in place. Monitor intake and output. We'll discontinue Marvin once patient out of bed, creatinine stable Diarrhea - Negative C. difficile, likely antibiotic induced. Leukocytosis improving. Leukocytosis Normocytic anemia Thrombocytosis - likely reactive secondary to infection/inflammation - Bilateral lower ultrasound negative for DVT 11/16/16. - Transfused 4 units of PRBCs. Hemoccult negative. Peripheral smear showed leukocytosis and neutrophilia with reactive features and left shift. Severe normochromic, normocytic anemia, fibrinogen 491 possible increase secondary to inflammatory process Headache-Tylenol as needed, resolved. Hyperkalemia- resolved with Kayexalate. Hyperglycemia of critical illness. Stable - Discontinue sliding scale every 6 hours. Protonix 40 mg daily for stress ulcer prophylaxis. Heparin for DVT prophylaxis Discharge Planning Will eventually need rehabilitation, possibly [place] rehabilitation Problem Qualifiers (1) Morbid obesity: Qualified Code: E66.01 - Morbid obesity, unspecified obesity type (2) Hypertension: Qualified Code: I10 - Essential hypertension James Trejo MD Dec 07, 2016 13:13
[2016-12-07 13:24] VITALS: BP 138/72
--- NOTE | 2016-12-07 15:40 | MB ---
cc: MARTHA SULLIVAN M.D. DATE OF CONSULTATION: 12/07/2016 The patient is being seen at the request of Dr. Jose Armando Lainez. REASON FOR CONSULTATION Open wound of left axilla. HISTORY OF PRESENT ILLNESS The patient is a 36-year-old female who was admitted on November 16, 2016. At the time the admitting diagnosis was necrotizing fasciitis of the chest wall. The patient was taken to the operating room by Dr. Jose Armando Lainez where a diagnosis of necrotizing fasciitis was confirmed, he did extensive surgery. The patient has done well and has been treated by Dr. Jose Armando Lainez as needed. Now the patient has an open wound and consultation is requested regarding evaluation and treatment of the open wound. PAST MEDICAL HISTORY 1. The patient has a history of morbid obesity. 2. She has no known food or drug allergies. 3. She also has hypertension. 4. Ovarian cyst. 5. Chronic pain. 6. Denies any past surgical history except for this admission. MEDICATION Reported medications are on the chart. FAMILY HISTORY Significant for diabetes. SOCIAL HISTORY It is reported that she is a smoker but had quit in 2014. PHYSICAL EXAMINATION GENERAL: On examination the patient is sitting comfortably in bed. VITAL SIGNS: Temperature is 98.4, pulse is 90, respirations 17, blood pressure is 138/72. HEENT: Her extraocular muscles are intact. Pupils are equal, round and reactive to light. Her mouth is clear. NECK: Neck is supple without masses. LUNGS: Clear. HEART: Her heart has regular rate and rhythm. Examination of her axilla reveals the wound vac to be in place. The wound is examined from photographs and there appears to be excellent granulation tissue with some tunneling superiorly and also into the wound. There is not a lot of significant drainage and there is no odor. LABORATORY DATA Latest white count is 13.9 with 73% neutrophils with absolute neutrophil count of 10,100. On admission her white count was 18,900 and peaked at about 26,000. IMPRESSION The patient has an open wound of the left axilla secondary to necrotizing fasciitis. PLAN The patient will be maintained on the wound vac. She indicates that she will be able to come to the wound care clinic twice a week. She is advised that she can come to our wound care clinic or any wound care clinic of her choosing. I anticipate that the wound should eventually close on its own and would not require additional surgical intervention. The patient will be reexamined on Monday and will be cleared for discharge pending release by Dr. Lainez and her other attendings. MD NITIN Aiken/ANA /2:51 PM /3:28 PM
[2016-12-07 16:00] VITALS: BP 156/97; PULSE 87; RESP 20; TEMP 96.2; O2SAT 99
[2016-12-07 20:00] VITALS: BP 149/86; PULSE 91; RESP 18; TEMP 97.3; O2SAT 98
[2016-12-08] VITALS: BP 140/84; PULSE 89; RESP 18; TEMP 98.4; O2SAT 98
[2016-12-08] MEDS: HYDROmorphone HCL PF 1 MG/ML VIAL IV PUSH PRN ×2 (01:26→11:21)
[2016-12-08] MEDS: SODIUM CHLORIDE 0.9% FLUSH 5 ML FLUSH IV FLUSH SCH ×3 (01:27→20:18)
[2016-12-08] MEDS: HEPARIN SODIUM - SQ 10,000 UNITS/ML VIAL SQ SCH ×4 (01:27→23:37)
[2016-12-08] MEDS: CHLORHEXIDINE GLUCONATE 2 % 1 PACK (2 CLOTHS) TOP SCH (04:00)
[2016-12-08] MEDS: oxyCODONE/ACETAMINOPHEN 10 MG/325 MG TAB PO PRN ×2 (06:42→20:17)
[2016-12-08] MEDS: CHLORHEXIDINE 0.12% (ORAL KIT) 15 ML CUP MT SCH ×2 (06:43→20:00)
[2016-12-08 08:00] VITALS: BP 175/94; PULSE 81; RESP 17; TEMP 96.9; O2SAT 100
[2016-12-08 08:59] VITALS: BP 179/81
[2016-12-08] MEDS: METOPROLOL TARTRATE 25 MG TAB PO SCH ×2 (08:59→20:17)
[2016-12-08] MEDS: LACTOBACILLUS ACIDOPHILUS TAB PO SCH ×3 (08:59→16:18)
[2016-12-08] MEDS: hydrALAZINE HCL 25 MG TAB PO SCH ×2 (09:00→20:17)
[2016-12-08] MEDS: DOCUSATE SODIUM 100 MG CAP TUBE SCH ×2 (09:00→20:17)
[2016-12-08] MEDS: PANTOPRAZOLE SOD 40 MG DELAYED RELEASE TAB PO SCH (09:00)
[2016-12-08] MEDS: cloNIDine HCL 0.1 MG TAB PO PRN (11:48)
[2016-12-08 12:00] VITALS: BP 174/97; PULSE 86; RESP 16; TEMP 97.4; O2SAT 98
--- NOTE | 2016-12-08 12:57 | HHI.PR ---
Subjective Remarks Patient in nad. No n/v/d/c. Complaints of gas, had a BM. Pain is controlled by meds. No fevers or chills overnight. No n/v/d/c. Objective Vitals Vital Signs Date Time Temp Pulse Resp B/P Pulse Ox O2 Delivery O2 Flow Rate FiO2 12/08/16 08:59 179/81 12/08/16 08:00 96.9 81 17 175/94 100 12/08/16 00:00 98.4 89 18 140/84 98 12/07/16 20:00 97.3 91 18 149/86 98 12/07/16 16:00 96.2 87 20 156/97 99 12/07/16 13:24 138/72 I/O 12/07/16 12/07/16 12/07/16 12/08/16 12/08/16 12/08/16 07:00 15:00 23:00 07:00 15:00 23:00 Intake Total 360 ml 720 ml 240 ml 600 ml Output Total 1125 ml 3400 ml 700 ml 1950 ml Balance -765 ml -2680 ml -460 ml -1350 ml Intake Oral 360 ml 720 ml 240 ml 600 ml IV Total 0 ml Output Urine Total 1100 ml 3400 ml 600 ml 1850 ml Drainage Total 25 ml 100 ml 100 ml # Bowel Movements 0 2 1 0 Result Diagram: 12/05/16 0431 12/05/16 0431 Imaging Last Impressions Renal Ultrasound 11/24/16 0000 Signed Impressions: Service Date/Time: November 09:51 - CONCLUSION: 1. Echogenic kidneys characteristic of medical renal disease. No hydronephrosis. Bladder unremarkable. William James MD Chest X-Ray 11/23/16 0600 Signed Impressions: Service Date/Time: Wednesday, November 23, 2016 04:13 - CONCLUSION: 1. Improving aeration in the left base with resolving atelectasis/effusion. 2. However, there is slight interval worsening of the atelectatic changes above the right hemidiaphragm. 3. Interstitial haziness suggesting some degree of vascular congestion or volume overload. Heart size remains prominent. 4. Stable position of life support tubes. Leo Newsome MD Lower Extremity Ultrasound 11/16/16 0000 Signed Impressions: Service Date/Time: Wednesday, November 16, 2016 22:30 - CONCLUSION: Normal examination. William James MD Objective Remarks GENERAL: This is a morbidly obese female patient, in no apparent distress. HEENT: Normocephalic. Pupils equal round and reactive. NECK: Trachea midline. No JVD. Supple. CARDIOVASCULAR: Regular rate and rhythm without murmurs, gallops, or rubs. Chest/axillary dressings in place, positive for serous drainage, does not seem infected. (+) Liquid dressings, no definite discharge. RESPIRATORY: Clear to auscultation. Breath sounds equal bilaterally. No wheezes , rales, or rhonchi. GASTROINTESTINAL: Abdomen soft, non-tender, nondistended. Bowel Sounds normoactive x4. : Marvin catheter draining yellow urine clear MUSCULOSKELETAL: Extremities without clubbing, cyanosis, trace lower extremity edema. NEUROLOGICAL: Awake and alert. Oriented x 3. No focal neuro deficit. MCLEOD. Normal speech. Procedures Right IJ central line 3/2 Excision and debridement necrotizing soft tissue infection, left axilla 40 x 25 cm. 3/ Vac change with irrigation and debridement of large necrotizing fasciitis wound. 11/22 1. Partial closure of large open wound. 2. I&D large complex wound. 3. Replacement of VAC. A/P Problem List: (1) Anemia ICD Code: D64.9 Status: Acute (2) BLESSING (acute kidney injury) ICD Code: N17.9 Status: Acute (3) UTI (lower urinary tract infection) ICD Code: N39.0 Status: Acute (4) Morbid obesity ICD Code: E66.01 Status: Acute (5) Abscess of chest wall ICD Code: L02.213 Status: Acute (6) Hypertension ICD Code: I10 Status: Acute (7) Chronic acquired lymphedema ICD Code: I89.0 Status: Acute (8) Necrotizing fasciitis ICD Code: M72.6 Status: Acute Assessment and Plan Patient is a 66-year-old morbidly obese female with past medical history of hypertension, bilateral lower extremity lymphedema was undergone operative debridement of necrotizing fasciitis of left axilla, chest, back. Reportedly, developed a boil in the left axilla after shaving. This eventually drained spontaneously and showed some initial improvement. She then developed blisters of the axilla and chest wall. She developed some drainage from left chest. She had subjective fevers. She presented to [facility] [place] where Dr. Lainez was consulted emergently for evaluation for necrotizing fasciitis. She was taken emergently to OR where she underwent debridement of left axilla, breast, left chest wall, back with wound VAC placement. Septic shock secondary to Necrotizing fasciitis left axilla/chest wall /breast. -Status post debridement of the chest wall, axilla and back by Dr. Lainez with wound VAC placement. - Return to OR for further debridement , at some point, will need skin graft - Empiric coverage with Zosyn, stop per infectious disease.Blood cultures no growth but still with significant leukocytosis - slightly improved - Intraoperative wound culture staph aureus, Escherichia coli, urine culture grew Escherichia coli and lactobacillus. Off antibiotics, leukocytosis now 13.9, wound does not seem infected, continue present management. Further management per surgery, plastic surgery consulted today for possible skin grafting. Discussed with general surgery. Depression Postoperative pain management - Continue Percocet and IV Dilaudid as needed, when the next few days. - Counseled regarding narcotics Acute hypoxemic respiratory failure/postop - Nasal cannula to maintain saturations greater than equal to 92% note currently in room air - Incentive spirometry while awake History of hypertension - On metoprolol 25 twice a day and hydralazine 25 mg every 12 hours. Clonidine as needed. Morbid obesity - Heart healthy diet - Colace/as needed Senokot for bowel regimen BLESSING - Renal sonogram with no obstruction. Consulted renal, acute kidney injury secondary to vancomycin and hypoperfusion - Marvin in place. Monitor intake and output. We'll discontinue Marvin once patient out of bed, creatinine stable Diarrhea - Negative C. difficile, likely antibiotic induced. Leukocytosis improving. Leukocytosis Normocytic anemia Thrombocytosis - likely reactive secondary to infection/inflammation - Bilateral lower ultrasound negative for DVT 11/16/16. - Transfused 4 units of PRBCs. Hemoccult negative. Peripheral smear showed leukocytosis and neutrophilia with reactive features and left shift. Severe normochromic, normocytic anemia, fibrinogen 491 possible increase secondary to inflammatory process Headache-Tylenol as needed, resolved. Hyperkalemia- resolved with Kayexalate. Hyperglycemia of critical illness. Stable - Discontinue sliding scale every 6 hours. Protonix 40 mg daily for stress ulcer prophylaxis. Heparin for DVT prophylaxis Discharge Planning Will eventually need rehabilitation, possibly [facility] Problem Qualifiers (1) Morbid obesity: Qualified Code: E66.01 - Morbid obesity, unspecified obesity type (2) Hypertension: Qualified Code: I10 - Essential hypertension Gabby Casiano MD Dec 08, 2016 12:57
[2016-12-08 16:00] VITALS: BP 142/71; PULSE 97; RESP 18; TEMP 97.5; O2SAT 100
[2016-12-08 20:00] VITALS: BP 168/91; PULSE 86; RESP 18; TEMP 98.2; O2SAT 98
[2016-12-08] MEDS: SIMETHICONE 125 MG CHEWABLE TAB PO PRN (20:17)
[2016-12-08] MEDS: diphenhydrAMINE HCL 25 MG CAP PO PRN (20:17)
[2016-12-09] VITALS: BP 141/78; PULSE 82; RESP 18; TEMP 97.3; O2SAT 98
[2016-12-09] MEDS: ACETAMINOPHEN 325 MG TAB PO PRN (03:52)
[2016-12-09] MEDS: CHLORHEXIDINE GLUCONATE 2 % 1 PACK (2 CLOTHS) TOP SCH (04:00)
[2016-12-09 08:00] VITALS: BP_SYST 145; BP_SYST 158; BP_DIAS 109; BP_DIAS 82; PULSE 78; RESP 16; TEMP 96; O2SAT 100
[2016-12-09] MEDS: CHLORHEXIDINE 0.12% (ORAL KIT) 15 ML CUP MT SCH ×2 (08:00→20:00)
[2016-12-09] MEDS: DOCUSATE SODIUM 100 MG CAP TUBE SCH ×2 (08:25→20:01)
[2016-12-09] MEDS: LACTOBACILLUS ACIDOPHILUS TAB PO SCH ×3 (08:25→16:40)
[2016-12-09] MEDS: PANTOPRAZOLE SOD 40 MG DELAYED RELEASE TAB PO SCH (08:25)
[2016-12-09] MEDS: METOPROLOL TARTRATE 25 MG TAB PO SCH ×2 (08:25→20:01)
[2016-12-09] MEDS: hydrALAZINE HCL 25 MG TAB PO SCH ×2 (08:25→20:01)
[2016-12-09] MEDS: oxyCODONE/ACETAMINOPHEN 10 MG/325 MG TAB PO PRN ×2 (08:25→18:01)
[2016-12-09] MEDS: HEPARIN SODIUM - SQ 10,000 UNITS/ML VIAL SQ SCH ×2 (08:26→16:39)
[2016-12-09] MEDS: SODIUM CHLORIDE 0.9% FLUSH 5 ML FLUSH IV FLUSH SCH ×2 (08:27→20:01)
[2016-12-09 12:00] VITALS: BP 138/70; PULSE 84; RESP 20; TEMP 96.8; O2SAT 100
[2016-12-09] MEDS: HYDROmorphone HCL PF 1 MG/ML VIAL IV PUSH PRN (12:37)
--- NOTE | 2016-12-09 13:36 | HHI.FF ---
Face to Face Verification Diagnosis: (1) Necrotizing cellulitis Home Health Nursing Order: Wound care and dressing changes Instructions: Wound vac changed to LEFT chest/axillary Monday I have seen patient Bijal Martins on 12/09/16. My clinical findings support the need for the requested home health care services because: Limited ability to care for self High risk of falls I certify that my clinical findings support that this patient is homebound because: Post-op weakness Priyanka Ocasio Dec 09, 2016 13:36
[2016-12-09] MEDS ORDERED: MISC-163 (15:30)
[2016-12-09] MEDS ORDERED: WALKER WHEELS/F1 MIS (15:30)
[2016-12-09 16:00] VITALS: BP 135/88; PULSE 90; RESP 16; TEMP 96.2; O2SAT 100
--- NOTE | 2016-12-09 17:48 | HHI.PR ---
Subjective Remarks Patient in nad. Pain is controlled by meds. No fevers or chills. No n/v/d/c. Wound is healing. Objective Vitals Vital Signs Date Time Temp Pulse Resp B/P Pulse Ox O2 Delivery O2 Flow Rate FiO2 12/09/16 12:00 96.8 84 20 138/70 100 12/09/16 08:00 96.0 78 16 158/109 100 145/82 12/09/16 04:54 20 12/09/16 00:00 97.3 82 18 141/78 98 12/08/16 21:17 18 12/08/16 20:00 98.2 86 18 168/91 98 I/O 12/08/16 12/08/16 12/08/16 12/09/16 12/09/16 12/09/16 07:00 15:00 23:00 07:00 15:00 23:00 Intake Total 600 ml 700 ml 480 ml 240 ml Output Total 1950 ml 1075 ml 1150 ml 1150 ml 100 ml Balance -1350 ml -375 ml -670 ml -910 ml -100 ml Intake Oral 600 ml 700 ml 480 ml 240 ml Output Urine Total 1850 ml 1075 ml 1150 ml 1000 ml Stool Total 150 ml Drainage Total 100 ml 100 ml # Bowel Movements 0 1 1 1 Result Diagram: 12/05/16 0431 12/05/16 0431 Imaging Last Impressions Renal Ultrasound 11/24/16 0000 Signed Impressions: Service Date/Time: November 09:51 - CONCLUSION: 1. Echogenic kidneys characteristic of medical renal disease. No hydronephrosis. Bladder unremarkable. William James MD Chest X-Ray 11/23/16 0600 Signed Impressions: Service Date/Time: Wednesday, November 23, 2016 04:13 - CONCLUSION: 1. Improving aeration in the left base with resolving atelectasis/effusion. 2. However, there is slight interval worsening of the atelectatic changes above the right hemidiaphragm. 3. Interstitial haziness suggesting some degree of vascular congestion or volume overload. Heart size remains prominent. 4. Stable position of life support tubes. Leo Newsome MD Lower Extremity Ultrasound 11/16/16 0000 Signed Impressions: Service Date/Time: Wednesday, November 16, 2016 22:30 - CONCLUSION: Normal examination. William James MD Objective Remarks GENERAL: This is a morbidly obese female patient, in no apparent distress. HEENT: Normocephalic. Pupils equal round and reactive. NECK: Trachea midline. No JVD. Supple. CARDIOVASCULAR: Regular rate and rhythm without murmurs, gallops, or rubs. Chest/axillary dressings in place, positive for serous drainage, does not seem infected. (+) Liquid dressings, no definite discharge. RESPIRATORY: Clear to auscultation. Breath sounds equal bilaterally. No wheezes , rales, or rhonchi. GASTROINTESTINAL: Abdomen soft, non-tender, nondistended. Bowel Sounds normoactive x4. : Marvin catheter draining yellow urine clear MUSCULOSKELETAL: Extremities without clubbing, cyanosis, trace lower extremity edema. NEUROLOGICAL: Awake and alert. Oriented x 3. No focal neuro deficit. MCLEOD. Normal speech. Procedures Right IJ central line 3/2 Excision and debridement necrotizing soft tissue infection, left axilla 40 x 25 cm. / Vac change with irrigation and debridement of large necrotizing fasciitis wound. 11/22 1. Partial closure of large open wound. 2. I&D large complex wound. 3. Replacement of VAC. A/P Problem List: (1) Anemia ICD Code: D64.9 Status: Acute (2) BLESSING (acute kidney injury) ICD Code: N17.9 Status: Acute (3) UTI (lower urinary tract infection) ICD Code: N39.0 Status: Acute (4) Morbid obesity ICD Code: E66.01 Status: Acute (5) Abscess of chest wall ICD Code: L02.213 Status: Acute (6) Hypertension ICD Code: I10 Status: Acute (7) Chronic acquired lymphedema ICD Code: I89.0 Status: Acute (8) Necrotizing fasciitis ICD Code: M72.6 Status: Acute Assessment and Plan Patient is a 66-year-old morbidly obese female with past medical history of hypertension, bilateral lower extremity lymphedema was undergone operative debridement of necrotizing fasciitis of left axilla, chest, back. Reportedly, developed a boil in the left axilla after shaving. This eventually drained spontaneously and showed some initial improvement. She then developed blisters of the axilla and chest wall. She developed some drainage from left chest. She had subjective fevers. She presented to [facility] [place] [facility] where Dr. Lainez was consulted emergently for evaluation for necrotizing fasciitis. She was taken emergently to OR where she underwent debridement of left axilla, breast, left chest wall, back with wound VAC placement. Septic shock secondary to Necrotizing fasciitis left axilla/chest wall /breast. -Status post debridement of the chest wall, axilla and back by Dr. Lainez with wound VAC placement. - Return to OR for further debridement , at some point, will need skin graft - Empiric coverage with Zosyn, stop per infectious disease.Blood cultures no growth but still with significant leukocytosis - slightly improved - Intraoperative wound culture staph aureus, Escherichia coli, urine culture grew Escherichia coli and lactobacillus. Off antibiotics, leukocytosis now 13.9, wound does not seem infected, continue present management. Further management per surgery, plastic surgery consulted today for possible skin grafting. Discussed with general surgery. Depression Postoperative pain management - Continue Percocet and IV Dilaudid as needed, when the next few days. - Counseled regarding narcotics Acute hypoxemic respiratory failure/postop - Nasal cannula to maintain saturations greater than equal to 92% note currently in room air - Incentive spirometry while awake History of hypertension - On metoprolol 25 twice a day and hydralazine 25 mg every 12 hours. Clonidine as needed. Morbid obesity - Heart healthy diet - Colace/as needed Senokot for bowel regimen BLESSING - Renal sonogram with no obstruction. Consulted renal, acute kidney injury secondary to vancomycin and hypoperfusion - Marvin in place. Monitor intake and output. We'll discontinue Marvin once patient out of bed, creatinine stable Diarrhea - Negative C. difficile, likely antibiotic induced. Leukocytosis improving. Leukocytosis Normocytic anemia Thrombocytosis - likely reactive secondary to infection/inflammation - Bilateral lower ultrasound negative for DVT 11/16/16. - Transfused 4 units of PRBCs. Hemoccult negative. Peripheral smear showed leukocytosis and neutrophilia with reactive features and left shift. Severe normochromic, normocytic anemia, fibrinogen 491 possible increase secondary to inflammatory process Headache-Tylenol as needed, resolved. Hyperkalemia- resolved with Kayexalate. Hyperglycemia of critical illness. Stable - Discontinue sliding scale every 6 hours. Protonix 40 mg daily for stress ulcer prophylaxis. Heparin for DVT prophylaxis Discharge Planning Will eventually need rehabilitation, possibly [facility]. CM consulted for DC plan . DC when improved and cleared by consultants. Problem Qualifiers (1) Morbid obesity: Qualified Code: E66.01 - Morbid obesity, unspecified obesity type (2) Hypertension: Qualified Code: I10 - Essential hypertension Gabby Casiano MD Dec 09, 2016 17:48
[2016-12-09] MEDS ORDERED: LACT PO (17:56)
[2016-12-09] MEDS ORDERED: OXYC1TAB63 PO (17:56)
[2016-12-09] MEDS ORDERED: HYDR25TA35 PO (17:56)
--- NOTE | 2016-12-09 17:57 | HHI.DS ---
Discharge Summary Admission Date Nov 16, 2016 at 18:38 Discharge Date: Dec 20, 2016 Admitting Diagnosis chest wall infection, sepsis (1) Necrotizing fasciitis ICD Code: M72.6 Diagnosis: Principal (2) Abscess of chest wall ICD Code: L02.213 Diagnosis: Principal (3) Anemia ICD Code: D64.9 Diagnosis: Principal (4) BLESSING (acute kidney injury) ICD Code: N17.9 Diagnosis: Secondary (5) UTI (lower urinary tract infection) ICD Code: N39.0 Diagnosis: Secondary (6) Morbid obesity ICD Code: E66.01 Diagnosis: Secondary (7) Hypertension ICD Code: I10 Diagnosis: Secondary (8) Chronic acquired lymphedema ICD Code: I89.0 Diagnosis: Secondary Procedures Right IJ central line 3/ Excision and debridement necrotizing soft tissue infection, left axilla 40 x 25 cm. / Vac change with irrigation and debridement of large necrotizing fasciitis wound. 11/22 1. Partial closure of large open wound. 2. I&D large complex wound. 3. Replacement of VAC. Brief History - From Admission 36 yo morbidly obese female with past medical history of hypertension, bilateral lower extremity lymphedema who has undergone operative debridement for necrotizing fasciitis of left axilla, chest, back. Reportedly, about two weeks ago she developed a boil in left axilla after shaving. This eventually drained spontaneously and showed some initial improvement. She then developed blisters of the axilla and chest wall. About 2 days ago she developed some drainage from left chest. She had subjective fevers. She presented [place] [facility] [place] Dr. Lainez was consulted emergently for evaluation for necrotizing fasciitis. She provided informed surgical consent and was taken emergently to OR where she underwent debridement of left axilla, breast, left chest wall, back with wound VAC placement. Anesthesia records indicate that she was intubated with 2 Grant without reported difficulty. She received 2500 crystalloid. Estimated blood loss was 350. She received Zosyn, clindamycin, vancomycin. She was briefly on pressors in the OR but these have been weaned off. She is to remain intubated for postoperative resuscitation and for tentative plan to return to OR Monday morning 11/18/16 for debridement and wound vac change. CBC/BMP: 12/05/16 0431 12/05/16 0431 Imaging Last Impressions Upper Extremity Ultrasound 12/13/16 0000 Signed Impressions: Service Date/Time: Tuesday, December 13, 2016 19:01 - CONCLUSION: No evidence of deep venous thrombosis within the left upper extremity. David Groves MD Renal Ultrasound 11/24/16 0000 Signed Impressions: Service Date/Time: November 09:51 - CONCLUSION: 1. Echogenic kidneys characteristic of medical renal disease. No hydronephrosis. Bladder unremarkable. William James MD Chest X-Ray 11/23/16 0600 Signed Impressions: Service Date/Time: Wednesday, November 23, 2016 04:13 - CONCLUSION: 1. Improving aeration in the left base with resolving atelectasis/effusion. 2. However, there is slight interval worsening of the atelectatic changes above the right hemidiaphragm. 3. Interstitial haziness suggesting some degree of vascular congestion or volume overload. Heart size remains prominent. 4. Stable position of life support tubes. Leo Newsome MD Lower Extremity Ultrasound 11/16/16 0000 Signed Impressions: Service Date/Time: Wednesday, November 16, 2016 22:30 - CONCLUSION: Normal examination. William James MD PE at Discharge GENERAL: This is a morbidly obese female patient, in no apparent distress. HEENT: Normocephalic. Pupils equal round and reactive. NECK: Trachea midline. No JVD. Supple. CARDIOVASCULAR: Regular rate and rhythm without murmurs, gallops, or rubs. Chest/axillary dressings in place, positive for serous drainage, does not seem infected. (+) Liquid dressings, no definite discharge. RESPIRATORY: Clear to auscultation. Breath sounds equal bilaterally. No wheezes , rales, or rhonchi. GASTROINTESTINAL: Abdomen soft, non-tender, nondistended. Bowel Sounds normoactive x4. : Marvin catheter draining yellow urine clear MUSCULOSKELETAL: Extremities without clubbing, cyanosis, trace lower extremity edema. NEUROLOGICAL: Awake and alert. Oriented x 3. No focal neuro deficit. MCLEOD. Normal speech. Hospital Course Patient is a 66-year-old morbidly obese female with past medical history of hypertension, bilateral lower extremity lymphedema was undergone operative debridement of necrotizing fasciitis of left axilla, chest, back. Reportedly, developed a boil in the left axilla after shaving. This eventually drained spontaneously and showed some initial improvement. She then developed blisters of the axilla and chest wall. She developed some drainage from left chest. She had subjective fevers. She presented to [facility] where Dr. Lainez was consulted emergently for evaluation for necrotizing fasciitis. She was taken emergently to OR where she underwent debridement of left axilla, breast, left chest wall, back with wound VAC placement. Left Arm edema and associated pain, improved. Doppler US shows no DVT. Septic shock secondary to Necrotizing fasciitis left axilla/chest wall /breast. -Status post debridement of the chest wall, axilla and back by Dr. Lainez with wound VAC placement. - Return to OR for further debridement , at some point, will need skin graft - S/P Empiric coverage with Zosyn, stop per infectious disease.Blood cultures no growth - Intraoperative wound culture staph aureus, Escherichia coli, urine culture grew Escherichia coli and lactobacillus. - seen by Dr. Del Toro on consultation- OP ff up at wound clinic 2x a week Depression Postoperative pain management - Continue Percocet - Counseled regarding narcotics Acute hypoxemic respiratory failure/postop- resolved - Nasal cannula to maintain saturations greater than equal to 92% note currently in room air - Incentive spirometry while awake History of hypertension- - On metoprolol 50 mg twice a day. hydralazine to 50 mg every 12 hours. - some elevated readings- add amlodipine 2.5 mg po daily Morbid obesity BMI of 57.1 - Heart healthy diet - Colace/as needed BLESSING, resolved - Renal sonogram with no obstruction. Consulted renal, acute kidney injury secondary to vancomycin and hypoperfusion Diarrhea- improved - Negative C. difficile, likely antibiotic induced. Leukocytosis improving. - on Lactinex- monitor Leukocytosis. Improved Normocytic anemia Thrombocytosis - likely reactive secondary to infection/inflammation - Bilateral lower ultrasound negative for DVT 11/16/16. - Transfused 4 units of PRBCs. Hemoccult negative. Peripheral smear showed leukocytosis and neutrophilia with reactive features and left shift. - Severe normochromic, normocytic anemia, fibrinogen 491 possible increase secondary to inflammatory process Headache-Tylenol as needed, resolved. Hyperkalemia- resolved with Kayexalate. Monitor Hyperglycemia of critical illness. Stable - Discontinue sliding scale every 6 hours. Protonix 40 mg daily for stress ulcer prophylaxis. Heparin for DVT prophylaxis Discharge Planning Improved. Plan to DC home with home health. will d/w CM 3:1 commode, wheelchair, front wheel walker arranged for home health care nursing Patient was discharged in stable condition to follow up as OP with PCP and consultants. Pt Condition on Discharge: Stable Discharge Disposition: Disch w/ Home Health Serv Discharge Time: > 30 minutes Discharge Instructions DIET: Follow Instructions for: Heart Healthy Diet Speech Therapy-Diet Recommends: Regular Activities you can perform: Regular-No Restrictions Follow up Referrals: PCP Follow-up - 3-5 Days Surgical - 1 Week with Jose Armando Lainez MD [facility] - 2-3 Days New Medications: 3-in-1 Bedside Toilet (3-in-1 Bedside Toilet) 1 Mis Mis 1 EA .ROUTE DIRECTED bariatric 3 in 1 bedisde commode #1 EA Oxycodone-Acetaminophen (Oxycodone-Acetaminophen) 5-325 mg Tab 1 TAB PO Q4H PRN PAIN #30 Ref 0 TAB Walker with Front Wheels (Walker with Front Wheels) 1 Mis Mis 1 EA .ROUTE DIRECTED bariatric front wheeled walker #1 Ref 0 EA Amlodipine (Norvasc) 5 Mg Tab 2.5 MG PO DAILY HTN Days 30 TAB Hydralazine (Hydralazine) 25 Mg Tab 25 MG PO Q12HR Blood Pressure Management #60 TAB Lactobacillus Acidophilus (Acidophilus/l-Sporogenes) 1 Tab Tab 1 TAB PO TID probiotic #30 TAB Metoprolol Tartrate (Metoprolol Tartrate) 25 Mg Tab 50 MG PO BID HTN Days 30 TAB Continued Medications: Cyclobenzaprine (Flexeril) 10 Mg Tab 10 MG PO HS Muscle Spasm #90 Ref 0 TAB Diphenhydramine-Acetaminophen (Tylenol Pm Extra Strength) 25-500 Mg Tab 2 TAB PO HS Trazodone (Trazodone) 50 Mg Tab 50 MG PO HS Control Depression #30 Ref 0 TAB Discontinued Medications: Ibuprofen (Advil) 200 Mg Tab 400 MG PO QID PRN Ref 0 TAB Metolazone (Metolazone) 5 Mg Tab 5 MG PO DAILY EDEMA #30 Ref 0 TAB Metoprolol Tartrate (Metoprolol Tartrate) 25 Mg Tab 25 MG PO BID TACHYCARDIA #60 Ref 0 TAB Potassium Chloride ER (K-Tab) 20 Meq Tab 20 MEQ PO BID Electrolyte Replacement #60 Ref 0 TAB Gabby Casiano MD Dec 09, 2016 17:57
--- NOTE | 2016-12-09 17:57 | HHI.DCPOC ---
Discharge Care Plan Goals to Promote Your Health * To prevent worsening of your condition and complications * To maintain your health at the optimal level Directions to Meet Your Goals Take your medications as prescribed Follow your dietary instruction Follow activity as directed Keep your appointments as scheduled Take your immunizations and boosters as scheduled If your symptoms worsen call your PCP, if no PCP go to Urgent Care Center or Emergency Room Smoking is Dangerous to Your Health. Avoid second hand smoke Call the 24-hour hour crisis hotline for domestic abuse at Gabby Casiano MD Dec 09, 2016 17:57
[2016-12-09] MEDS: diphenhydrAMINE HCL 25 MG CAP PO PRN (18:01)
[2016-12-09] MEDS: SIMETHICONE 125 MG CHEWABLE TAB PO PRN (18:01)
[2016-12-09 20:00] VITALS: BP 119/80; PULSE 92; RESP 20; TEMP 98.2; O2SAT 99
[2016-12-10] VITALS: BP 107/63; PULSE 86; RESP 20; TEMP 97.6; O2SAT 99
[2016-12-10] MEDS: HEPARIN SODIUM - SQ 10,000 UNITS/ML VIAL SQ SCH ×3 (00:02→16:25)
[2016-12-10] MEDS: oxyCODONE/ACETAMINOPHEN 10 MG/325 MG TAB PO PRN ×3 (00:08→20:08)
[2016-12-10] MEDS: CHLORHEXIDINE GLUCONATE 2 % 1 PACK (2 CLOTHS) TOP SCH (04:00)
[2016-12-10 08:00] VITALS: BP 140/81; PULSE 93; RESP 17; TEMP 96; O2SAT 100
[2016-12-10] MEDS: CHLORHEXIDINE 0.12% (ORAL KIT) 15 ML CUP MT SCH ×2 (08:00→20:00)
[2016-12-10] MEDS: PANTOPRAZOLE SOD 40 MG DELAYED RELEASE TAB PO SCH (08:17)
[2016-12-10] MEDS: LACTOBACILLUS ACIDOPHILUS TAB PO SCH ×3 (08:17→16:25)
[2016-12-10] MEDS: METOPROLOL TARTRATE 25 MG TAB PO SCH ×2 (08:17→20:08)
[2016-12-10] MEDS: hydrALAZINE HCL 25 MG TAB PO SCH ×2 (08:17→20:08)
[2016-12-10] MEDS: SODIUM CHLORIDE 0.9% FLUSH 5 ML FLUSH IV FLUSH SCH ×2 (08:18→20:09)
[2016-12-10] MEDS: DOCUSATE SODIUM 100 MG CAP TUBE SCH ×2 (08:18→20:08)
[2016-12-10 12:00] VITALS: BP 119/61; PULSE 95; RESP 16; TEMP 97.8; O2SAT 99
[2016-12-10] MEDS: ACETAMINOPHEN 325 MG TAB PO PRN (12:28)
--- NOTE | 2016-12-10 12:53 | HHI.PR ---
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 Says pain is controlled by meds. No fevers or chills. No n/v/d/c. Says CM is following for Dc plan, discussed at length DC plan with the patient. Objective Vitals Vital Signs Date Time Temp Pulse Resp B/P Pulse Ox O2 Delivery O2 Flow Rate FiO2 12/10/16 08:00 96.0 93 17 140/81 100 12/10/16 01:08 20 12/10/16 00:00 97.6 86 20 107/63 99 12/09/16 20:00 98.2 92 20 119/80 99 12/09/16 16:00 96.2 90 16 135/88 100 I/O 12/09/16 12/09/16 12/09/16 12/10/16 12/10/16 12/10/16 07:00 15:00 23:00 07:00 15:00 23:00 Intake Total 240 ml 1300 ml 360 ml 120 ml Output Total 1150 ml 1800 ml 460 ml 450 ml 100 ml Balance -910 ml -500 ml -100 ml -330 ml -100 ml Intake Oral 240 ml 1300 ml 360 ml 120 ml Output Urine Total 1000 ml 1700 ml 460 ml 450 ml Stool Total 150 ml Drainage Total 100 ml 100 ml # Bowel Movements 1 1 2 Imaging Last Impressions Renal Ultrasound 11/24/16 0000 Signed Impressions: Service Date/Time: November 09:51 - CONCLUSION: 1. Echogenic kidneys characteristic of medical renal disease. No hydronephrosis. Bladder unremarkable. William James MD Chest X-Ray 11/23/16 0600 Signed Impressions: Service Date/Time: Wednesday, November 23, 2016 04:13 - CONCLUSION: 1. Improving aeration in the left base with resolving atelectasis/effusion. 2. However, there is slight interval worsening of the atelectatic changes above the right hemidiaphragm. 3. Interstitial haziness suggesting some degree of vascular congestion or volume overload. Heart size remains prominent. 4. Stable position of life support tubes. Leo Newsome MD Lower Extremity Ultrasound 11/16/16 0000 Signed Impressions: Service Date/Time: Wednesday, November 16, 2016 22:30 - CONCLUSION: Normal examination. William James MD Objective Remarks GENERAL: This is a morbidly obese female patient, in no apparent distress. HEENT: Normocephalic. Pupils equal round and reactive. NECK: Trachea midline. No JVD. Supple. CARDIOVASCULAR: Regular rate and rhythm without murmurs, gallops, or rubs. Chest/axillary dressings in place, positive for serous drainage, does not seem infected. (+) Liquid dressings, no definite discharge. RESPIRATORY: Clear to auscultation. Breath sounds equal bilaterally. No wheezes , rales, or rhonchi. GASTROINTESTINAL: Abdomen soft, non-tender, nondistended. Bowel Sounds normoactive x4. : Marvin catheter draining yellow urine clear MUSCULOSKELETAL: Extremities without clubbing, cyanosis, trace lower extremity edema. NEUROLOGICAL: Awake and alert. Oriented x 3. No focal neuro deficit. MCLEOD. Normal speech. Procedures Right IJ central line 3/2 Excision and debridement necrotizing soft tissue infection, left axilla 40 x 25 cm. 3/ Vac change with irrigation and debridement of large necrotizing fasciitis wound. 11/22 1. Partial closure of large open wound. 2. I&D large complex wound. 3. Replacement of VAC. A/P Problem List: (1) Anemia ICD Code: D64.9 Status: Acute (2) BLESSING (acute kidney injury) ICD Code: N17.9 Status: Acute (3) UTI (lower urinary tract infection) ICD Code: N39.0 Status: Acute (4) Morbid obesity ICD Code: E66.01 Status: Acute (5) Abscess of chest wall ICD Code: L02.213 Status: Acute (6) Hypertension ICD Code: I10 Status: Acute (7) Chronic acquired lymphedema ICD Code: I89.0 Status: Acute (8) Necrotizing fasciitis ICD Code: M72.6 Status: Acute Assessment and Plan Patient is a 66-year-old morbidly obese female with past medical history of hypertension, bilateral lower extremity lymphedema was undergone operative debridement of necrotizing fasciitis of left axilla, chest, back. Reportedly, developed a boil in the left axilla after shaving. This eventually drained spontaneously and showed some initial improvement. She then developed blisters of the axilla and chest wall. She developed some drainage from left chest. She had subjective fevers. She presented [place] [facility] [place] Dr. Lainez was consulted emergently for evaluation for necrotizing fasciitis. She was taken emergently to OR where she underwent debridement of left axilla, breast, left chest wall, back with wound VAC placement. Septic shock secondary to Necrotizing fasciitis left axilla/chest wall /breast. -Status post debridement of the chest wall, axilla and back by Dr. Lainez with wound VAC placement. - Return to OR for further debridement , at some point, will need skin graft - Empiric coverage with Zosyn, stop per infectious disease.Blood cultures no growth but still with significant leukocytosis - slightly improved - Intraoperative wound culture staph aureus, Escherichia coli, urine culture grew Escherichia coli and lactobacillus. Off antibiotics, leukocytosis now 13.9, wound does not seem infected, continue present management. Further management per surgery, plastic surgery consulted today for possible skin grafting. Discussed with general surgery. Depression Postoperative pain management - Continue Percocet and IV Dilaudid as needed, when the next few days. - Counseled regarding narcotics Acute hypoxemic respiratory failure/postop - Nasal cannula to maintain saturations greater than equal to 92% note currently in room air - Incentive spirometry while awake History of hypertension - On metoprolol 25 twice a day and hydralazine 25 mg every 12 hours. Clonidine as needed. Morbid obesity - Heart healthy diet - Colace/as needed Senokot for bowel regimen BLESSING - Renal sonogram with no obstruction. Consulted renal, acute kidney injury secondary to vancomycin and hypoperfusion - Marvin in place. Monitor intake and output. We'll discontinue Marvin once patient out of bed, creatinine stable Diarrhea - Negative C. difficile, likely antibiotic induced. Leukocytosis improving. Leukocytosis Normocytic anemia Thrombocytosis - likely reactive secondary to infection/inflammation - Bilateral lower ultrasound negative for DVT 11/16/16. - Transfused 4 units of PRBCs. Hemoccult negative. Peripheral smear showed leukocytosis and neutrophilia with reactive features and left shift. Severe normochromic, normocytic anemia, fibrinogen 491 possible increase secondary to inflammatory process Headache-Tylenol as needed, resolved. Hyperkalemia- resolved with Kayexalate. Hyperglycemia of critical illness. Stable - Discontinue sliding scale every 6 hours. Protonix 40 mg daily for stress ulcer prophylaxis. Heparin for DVT prophylaxis Discharge Planning Improved. Plan to DC home with home health. Discussed with Dr Lainez and CM regarding plan for DC. CM is following. Problem Qualifiers (1) Morbid obesity: Qualified Code: E66.01 - Morbid obesity, unspecified obesity type (2) Hypertension: Qualified Code: I10 - Essential hypertension Gabby Casiano MD Dec 10, 2016 12:53
[2016-12-10 16:00] VITALS: BP 136/81; PULSE 85; RESP 17; TEMP 96.7; O2SAT 98
[2016-12-10 20:02] VITALS: BP 164/77; PULSE 99; RESP 18; TEMP 98.6; O2SAT 99
[2016-12-10] MEDS: diphenhydrAMINE HCL 25 MG CAP PO PRN (20:08)
[2016-12-11] VITALS: BP 145/99; PULSE 87; RESP 18; TEMP 98.3; O2SAT 100
[2016-12-11] MEDS: HEPARIN SODIUM - SQ 10,000 UNITS/ML VIAL SQ SCH ×3 (00:36→16:25)
[2016-12-11] MEDS: HYDROmorphone HCL PF 1 MG/ML VIAL IV PUSH PRN (00:41)
[2016-12-11] MEDS: CHLORHEXIDINE GLUCONATE 2 % 1 PACK (2 CLOTHS) TOP SCH (03:12)
[2016-12-11] MEDS: diphenhydrAMINE HCL 25 MG CAP PO PRN ×2 (06:42→19:49)
[2016-12-11] MEDS: oxyCODONE/ACETAMINOPHEN 10 MG/325 MG TAB PO PRN ×2 (06:45→19:49)
[2016-12-11] MEDS: CHLORHEXIDINE 0.12% (ORAL KIT) 15 ML CUP MT SCH ×2 (07:13→19:50)
[2016-12-11 08:00] VITALS: BP 139/87; PULSE 89; RESP 18; TEMP 96.8; O2SAT 98
[2016-12-11] MEDS: METOPROLOL TARTRATE 25 MG TAB PO SCH ×2 (08:09→19:49)
[2016-12-11] MEDS: LACTOBACILLUS ACIDOPHILUS TAB PO SCH ×3 (08:09→16:25)
[2016-12-11] MEDS: SODIUM CHLORIDE 0.9% FLUSH 5 ML FLUSH IV FLUSH SCH ×2 (08:09→19:50)
[2016-12-11] MEDS: PANTOPRAZOLE SOD 40 MG DELAYED RELEASE TAB PO SCH (08:09)
[2016-12-11] MEDS: hydrALAZINE HCL 25 MG TAB PO SCH ×2 (08:09→19:50)
[2016-12-11] MEDS: DOCUSATE SODIUM 100 MG CAP TUBE SCH ×2 (08:09→19:50)
[2016-12-11 12:00] VITALS: BP 125/82; PULSE 89; RESP 19; TEMP 97.5; O2SAT 97
[2016-12-11] MEDS: SIMETHICONE 125 MG CHEWABLE TAB PO PRN (14:11)
--- NOTE | 2016-12-11 14:33 | HHI.PR ---
Subjective Remarks Seen earlier today. No n/v/d/c. Pain is controlled by meds. No fevers or chills. Patient needs PT at DC Objective Vitals Vital Signs Date Time Temp Pulse Resp B/P Pulse Ox O2 Delivery O2 Flow Rate FiO2 12/11/16 12:00 97.5 89 19 125/82 97 12/11/16 08:00 96.8 89 18 139/87 98 12/11/16 00:00 98.3 87 18 145/99 100 12/10/16 20:02 98.6 99 18 164/77 99 12/10/16 16:00 96.7 85 17 136/81 98 I/O 12/10/16 12/10/16 12/10/16 12/11/16 12/11/16 12/11/16 07:00 15:00 23:00 07:00 15:00 23:00 Intake Total 120 ml 240 ml 480 ml 0 ml Output Total 450 ml 100 ml 50 ml 25 ml Balance -330 ml 140 ml 430 ml -25 ml Intake Oral 120 ml 240 ml 480 ml 0 ml IV Total 0 ml 0 ml Output Urine Total 450 ml Drainage Total 100 ml 50 ml 25 ml # Voids 3 1 3 # Bowel Movements 0 Objective Remarks GENERAL: This is a morbidly obese female patient, in no apparent distress. HEENT: Normocephalic. Pupils equal round and reactive. NECK: Trachea midline. No JVD. Supple. CARDIOVASCULAR: Regular rate and rhythm without murmurs, gallops, or rubs. Chest/axillary dressings in place, positive for serous drainage, does not seem infected. (+) Liquid dressings, no definite discharge. RESPIRATORY: Clear to auscultation. Breath sounds equal bilaterally. No wheezes , rales, or rhonchi. GASTROINTESTINAL: Abdomen soft, non-tender, nondistended. Bowel Sounds normoactive x4. : Marvin catheter draining yellow urine clear MUSCULOSKELETAL: Extremities without clubbing, cyanosis, trace lower extremity edema. NEUROLOGICAL: Awake and alert. Oriented x 3. No focal neuro deficit. MCLEOD. Normal speech. Procedures Right IJ central line 3/2 Excision and debridement necrotizing soft tissue infection, left axilla 40 x 25 cm. 3/ Vac change with irrigation and debridement of large necrotizing fasciitis wound. 11/22 1. Partial closure of large open wound. 2. I&D large complex wound. 3. Replacement of VAC. A/P Problem List: (1) Anemia ICD Code: D64.9 Status: Acute (2) BLESSING (acute kidney injury) ICD Code: N17.9 Status: Acute (3) UTI (lower urinary tract infection) ICD Code: N39.0 Status: Acute (4) Morbid obesity ICD Code: E66.01 Status: Acute (5) Abscess of chest wall ICD Code: L02.213 Status: Acute (6) Hypertension ICD Code: I10 Status: Acute (7) Chronic acquired lymphedema ICD Code: I89.0 Status: Acute (8) Necrotizing fasciitis ICD Code: M72.6 Status: Acute Assessment and Plan Patient is a 66-year-old morbidly obese female with past medical history of hypertension, bilateral lower extremity lymphedema was undergone operative debridement of necrotizing fasciitis of left axilla, chest, back. Reportedly, developed a boil in the left axilla after shaving. This eventually drained spontaneously and showed some initial improvement. She then developed blisters of the axilla and chest wall. She developed some drainage from left chest. She had subjective fevers. She presented to [facility] [place] ED where Dr. Lainez was consulted emergently for evaluation for necrotizing fasciitis. She was taken emergently to OR where she underwent debridement of left axilla, breast, left chest wall, back with wound VAC placement. Septic shock secondary to Necrotizing fasciitis left axilla/chest wall /breast. -Status post debridement of the chest wall, axilla and back by Dr. Lainez with wound VAC placement. - Return to OR for further debridement , at some point, will need skin graft - Empiric coverage with Zosyn, stop per infectious disease.Blood cultures no growth but still with significant leukocytosis - slightly improved - Intraoperative wound culture staph aureus, Escherichia coli, urine culture grew Escherichia coli and lactobacillus. Off antibiotics, leukocytosis now 13.9, wound does not seem infected, continue present management. Further management per surgery, plastic surgery consulted today for possible skin grafting. Discussed with general surgery. Depression Postoperative pain management - Continue Percocet and IV Dilaudid as needed, when the next few days. - Counseled regarding narcotics Acute hypoxemic respiratory failure/postop - Nasal cannula to maintain saturations greater than equal to 92% note currently in room air - Incentive spirometry while awake History of hypertension - On metoprolol 25 twice a day and hydralazine 25 mg every 12 hours. Clonidine as needed. Morbid obesity - Heart healthy diet - Colace/as needed Senokot for bowel regimen BLESSING - Renal sonogram with no obstruction. Consulted renal, acute kidney injury secondary to vancomycin and hypoperfusion - Marvin in place. Monitor intake and output. We'll discontinue Marvin once patient out of bed, creatinine stable Diarrhea - Negative C. difficile, likely antibiotic induced. Leukocytosis improving. Leukocytosis Normocytic anemia Thrombocytosis - likely reactive secondary to infection/inflammation - Bilateral lower ultrasound negative for DVT 11/16/16. - Transfused 4 units of PRBCs. Hemoccult negative. Peripheral smear showed leukocytosis and neutrophilia with reactive features and left shift. Severe normochromic, normocytic anemia, fibrinogen 491 possible increase secondary to inflammatory process Headache-Tylenol as needed, resolved. Hyperkalemia- resolved with Kayexalate. Hyperglycemia of critical illness. Stable - Discontinue sliding scale every 6 hours. Protonix 40 mg daily for stress ulcer prophylaxis. Heparin for DVT prophylaxis Discharge Planning Improved. Plan to DC home with home health. Discussed with Dr Lainez and CM regarding plan for DC. CM is following. Problem Qualifiers (1) Morbid obesity: Qualified Code: E66.01 - Morbid obesity, unspecified obesity type (2) Hypertension: Qualified Code: I10 - Essential hypertension Gabby Casiano MD Dec 11, 2016 14:33
[2016-12-11 16:00] VITALS: BP 131/85; PULSE 94; RESP 19; TEMP 98.3; O2SAT 98
[2016-12-11 20:00] VITALS: BP 154/84; PULSE 102; RESP 20; TEMP 98.7; O2SAT 99
[2016-12-12] VITALS: BP 142/78; PULSE 98; RESP 20; TEMP 98.4; O2SAT 97
[2016-12-12] MEDS: HEPARIN SODIUM - SQ 10,000 UNITS/ML VIAL SQ SCH ×4 (00:09→22:16)
[2016-12-12] MEDS: HYDROmorphone HCL PF 1 MG/ML VIAL IV PUSH PRN ×2 (03:38→22:19)
[2016-12-12] MEDS: CHLORHEXIDINE GLUCONATE 2 % 1 PACK (2 CLOTHS) TOP SCH (04:00)
[2016-12-12] MEDS: PANTOPRAZOLE SOD 40 MG DELAYED RELEASE TAB PO SCH (07:42)
[2016-12-12] MEDS: DOCUSATE SODIUM 100 MG CAP TUBE SCH ×2 (07:42→21:00)
[2016-12-12] MEDS: METOPROLOL TARTRATE 25 MG TAB PO SCH ×2 (07:42→21:55)
[2016-12-12] MEDS: SODIUM CHLORIDE 0.9% FLUSH 5 ML FLUSH IV FLUSH SCH ×2 (07:42→22:16)
[2016-12-12] MEDS: LACTOBACILLUS ACIDOPHILUS TAB PO SCH ×3 (07:42→16:32)
[2016-12-12] MEDS: hydrALAZINE HCL 25 MG TAB PO SCH ×2 (07:42→21:55)
[2016-12-12] MEDS: CHLORHEXIDINE 0.12% (ORAL KIT) 15 ML CUP MT SCH ×2 (07:43→20:00)
[2016-12-12 08:00] VITALS: BP 175/100; PULSE 91; RESP 18; TEMP 96.5; O2SAT 100
[2016-12-12 12:00] VITALS: BP 165/88; PULSE 94; RESP 16; TEMP 96.8; O2SAT 96
[2016-12-12] MEDS: oxyCODONE/ACETAMINOPHEN 10 MG/325 MG TAB PO PRN ×3 (13:12→21:57)
--- NOTE | 2016-12-12 14:28 | HHI.PR ---
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 Denies chest pain . No n/v/d/c. No fevers or chills overnight. Patient is not moving much and she was using bedside commode. PT evaluating. Encourage PT. Objective Vitals Vital Signs Date Time Temp Pulse Resp B/P Pulse Ox O2 Delivery O2 Flow Rate FiO2 12/12/16 08:00 96.5 91 18 175/100 100 12/12/16 00:00 98.4 98 20 142/78 97 12/11/16 20:00 98.7 102 20 154/84 99 12/11/16 16:00 98.3 94 19 131/85 98 I/O 12/11/16 12/11/16 12/11/16 12/12/16 12/12/16 12/12/16 07:00 15:00 23:00 07:00 15:00 23:00 Intake Total 0 ml 340 ml 480 ml 240 ml Output Total 25 ml 825 ml 825 ml Balance -25 ml 340 ml -345 ml -585 ml Intake Oral 0 ml 340 ml 480 ml 240 ml IV Total 0 ml 0 ml Output Urine Total 750 ml 800 ml Drainage Total 25 ml 75 ml 25 ml # Voids 3 3 # Bowel Movements 1 1 0 Imaging Last Impressions Renal Ultrasound 11/24/16 0000 Signed Impressions: Service Date/Time: November 09:51 - CONCLUSION: 1. Echogenic kidneys characteristic of medical renal disease. No hydronephrosis. Bladder unremarkable. William James MD Chest X-Ray 11/23/16 0600 Signed Impressions: Service Date/Time: Wednesday, November 23, 2016 04:13 - CONCLUSION: 1. Improving aeration in the left base with resolving atelectasis/effusion. 2. However, there is slight interval worsening of the atelectatic changes above the right hemidiaphragm. 3. Interstitial haziness suggesting some degree of vascular congestion or volume overload. Heart size remains prominent. 4. Stable position of life support tubes. Leo Newsome MD Lower Extremity Ultrasound 11/16/16 0000 Signed Impressions: Service Date/Time: Wednesday, November 16, 2016 22:30 - CONCLUSION: Normal examination. William Jmaes MD Objective Remarks GENERAL: This is a morbidly obese female patient, in no apparent distress. HEENT: Normocephalic. Pupils equal round and reactive. NECK: Trachea midline. No JVD. Supple. CARDIOVASCULAR: Regular rate and rhythm without murmurs, gallops, or rubs. Chest/axillary dressings in place, positive for serous drainage, does not seem infected. (+) Liquid dressings, no definite discharge. RESPIRATORY: Clear to auscultation. Breath sounds equal bilaterally. No wheezes , rales, or rhonchi. GASTROINTESTINAL: Abdomen soft, non-tender, nondistended. Bowel Sounds normoactive x4. : Marvin catheter draining yellow urine clear MUSCULOSKELETAL: Extremities without clubbing, cyanosis, trace lower extremity edema. NEUROLOGICAL: Awake and alert. Oriented x 3. No focal neuro deficit. MCLEOD. Normal speech. Procedures Right IJ central line 3/2 Excision and debridement necrotizing soft tissue infection, left axilla 40 x 25 cm. 3/ Vac change with irrigation and debridement of large necrotizing fasciitis wound. 11/22 1. Partial closure of large open wound. 2. I&D large complex wound. 3. Replacement of VAC. A/P Problem List: (1) Anemia ICD Code: D64.9 Status: Acute (2) BLESSING (acute kidney injury) ICD Code: N17.9 Status: Acute (3) UTI (lower urinary tract infection) ICD Code: N39.0 Status: Acute (4) Morbid obesity ICD Code: E66.01 Status: Acute (5) Abscess of chest wall ICD Code: L02.213 Status: Acute (6) Hypertension ICD Code: I10 Status: Acute (7) Chronic acquired lymphedema ICD Code: I89.0 Status: Acute (8) Necrotizing fasciitis ICD Code: M72.6 Status: Acute Assessment and Plan Patient is a 66-year-old morbidly obese female with past medical history of hypertension, bilateral lower extremity lymphedema was undergone operative debridement of necrotizing fasciitis of left axilla, chest, back. Reportedly, developed a boil in the left axilla after shaving. This eventually drained spontaneously and showed some initial improvement. She then developed blisters of the axilla and chest wall. She developed some drainage from left chest. She had subjective fevers. She presented to [facility] [place] Dr. Lainez was consulted emergently for evaluation for necrotizing fasciitis. She was taken emergently to OR where she underwent debridement of left axilla, breast, left chest wall, back with wound VAC placement. Septic shock secondary to Necrotizing fasciitis left axilla/chest wall /breast. -Status post debridement of the chest wall, axilla and back by Dr. Lainez with wound VAC placement. - Return to OR for further debridement , at some point, will need skin graft - Empiric coverage with Zosyn, stop per infectious disease.Blood cultures no growth but still with significant leukocytosis - slightly improved - Intraoperative wound culture staph aureus, Escherichia coli, urine culture grew Escherichia coli and lactobacillus. Off antibiotics, leukocytosis now 13.9, wound does not seem infected, continue present management. Further management per surgery, plastic surgery consulted today for possible skin grafting. Discussed with general surgery. Depression Postoperative pain management - Continue Percocet and IV Dilaudid as needed, when the next few days. - Counseled regarding narcotics Acute hypoxemic respiratory failure/postop - Nasal cannula to maintain saturations greater than equal to 92% note currently in room air - Incentive spirometry while awake History of hypertension - On metoprolol 25 twice a day and hydralazine 25 mg every 12 hours. Clonidine as needed. Morbid obesity - Heart healthy diet - Colace/as needed Senokot for bowel regimen BLESSING - Renal sonogram with no obstruction. Consulted renal, acute kidney injury secondary to vancomycin and hypoperfusion - Marvin in place. Monitor intake and output. We'll discontinue Marvin once patient out of bed, creatinine stable Diarrhea - Negative C. difficile, likely antibiotic induced. Leukocytosis improving. Leukocytosis Normocytic anemia Thrombocytosis - likely reactive secondary to infection/inflammation - Bilateral lower ultrasound negative for DVT 11/16/16. - Transfused 4 units of PRBCs. Hemoccult negative. Peripheral smear showed leukocytosis and neutrophilia with reactive features and left shift. Severe normochromic, normocytic anemia, fibrinogen 491 possible increase secondary to inflammatory process Headache-Tylenol as needed, resolved. Hyperkalemia- resolved with Kayexalate. Hyperglycemia of critical illness. Stable - Discontinue sliding scale every 6 hours. Protonix 40 mg daily for stress ulcer prophylaxis. Heparin for DVT prophylaxis Discharge Planning Improved. Plan to DC home with home health. Discussed with Dr Lainez and CM regarding plan for DC. CM is following for DC. Problem Qualifiers (1) Morbid obesity: Qualified Code: E66.01 - Morbid obesity, unspecified obesity type (2) Hypertension: Qualified Code: I10 - Essential hypertension Gabby Casiano MD Dec 12, 2016 14:28
[2016-12-12 16:00] VITALS: BP 148/100; PULSE 90; RESP 18; TEMP 97.2; O2SAT 99
[2016-12-12] MEDS: cloNIDine HCL 0.1 MG TAB PO PRN (16:31)
[2016-12-12 20:00] VITALS: BP 140/84; PULSE 89; RESP 20; TEMP 97.1; O2SAT 100
[2016-12-13] VITALS: BP 150/78; PULSE 90; RESP 20; TEMP 98.1; O2SAT 100
[2016-12-13] MEDS: oxyCODONE/ACETAMINOPHEN 10 MG/325 MG TAB PO PRN ×3 (03:39→17:45)
[2016-12-13] MEDS: CHLORHEXIDINE GLUCONATE 2 % 1 PACK (2 CLOTHS) TOP SCH (04:00)
[2016-12-13 08:00] VITALS: BP 138/70; PULSE 86; RESP 19; TEMP 96.8; O2SAT 99
[2016-12-13] MEDS: CHLORHEXIDINE 0.12% (ORAL KIT) 15 ML CUP MT SCH ×2 (08:00→20:00)
[2016-12-13] MEDS: LACTOBACILLUS ACIDOPHILUS TAB PO SCH ×3 (08:01→16:13)
[2016-12-13] MEDS: HEPARIN SODIUM - SQ 10,000 UNITS/ML VIAL SQ SCH ×3 (08:01→22:43)
[2016-12-13] MEDS: PANTOPRAZOLE SOD 40 MG DELAYED RELEASE TAB PO SCH (08:02)
[2016-12-13] MEDS: DOCUSATE SODIUM 100 MG CAP TUBE SCH ×2 (08:02→22:36)
[2016-12-13] MEDS: hydrALAZINE HCL 25 MG TAB PO SCH ×2 (08:02→22:36)
[2016-12-13] MEDS: SODIUM CHLORIDE 0.9% FLUSH 5 ML FLUSH IV FLUSH SCH ×2 (08:02→21:00)
[2016-12-13] MEDS: METOPROLOL TARTRATE 25 MG TAB PO SCH ×2 (08:02→22:36)
[2016-12-13 12:00] VITALS: BP 136/65; PULSE 84; RESP 19; TEMP 96.5; O2SAT 100
[2016-12-13 16:00] VITALS: BP 136/80; PULSE 83; RESP 19; TEMP 96.9; O2SAT 99
--- NOTE | 2016-12-13 17:08 | HHI.PR ---
Subjective Remarks Seen earlier today. Patient complaints of swelling of her left arm and associated pain. Says she was doing some PT /OT yesterday and she is learning how to minimize left hand use. Wound Vac is in place. No fevers or chills. No n/ v/d/c. Denies cough or chest pain. Objective Vitals Vital Signs Date Time Temp Pulse Resp B/P Pulse Ox O2 Delivery O2 Flow Rate FiO2 12/13/16 16:00 96.9 83 19 136/80 99 12/13/16 12:00 96.5 84 19 136/65 100 12/13/16 08:00 96.8 86 19 138/70 99 12/13/16 00:00 98.1 90 20 150/78 100 12/12/16 20:00 97.1 89 20 140/84 100 I/O 12/12/16 12/12/16 12/12/16 12/13/16 12/13/16 12/13/16 07:00 15:00 23:00 07:00 15:00 23:00 Intake Total 240 ml 360 ml 720 ml 480 ml 480 ml Output Total 825 ml 220 ml 900 ml 690 ml 400 ml Balance -585 ml 140 ml -180 ml -210 ml 80 ml Intake Oral 240 ml 360 ml 720 ml 480 ml 480 ml IV Total 0 ml Output Urine Total 800 ml 220 ml 850 ml 640 ml 400 ml Drainage Total 25 ml 50 ml 50 ml # Bowel Movements 0 1 0 0 0 Imaging Last Impressions Renal Ultrasound 11/24/16 0000 Signed Impressions: Service Date/Time: November 09:51 - CONCLUSION: 1. Echogenic kidneys characteristic of medical renal disease. No hydronephrosis. Bladder unremarkable. William James MD Chest X-Ray 11/23/16 0600 Signed Impressions: Service Date/Time: Wednesday, November 23, 2016 04:13 - CONCLUSION: 1. Improving aeration in the left base with resolving atelectasis/effusion. 2. However, there is slight interval worsening of the atelectatic changes above the right hemidiaphragm. 3. Interstitial haziness suggesting some degree of vascular congestion or volume overload. Heart size remains prominent. 4. Stable position of life support tubes. Leo Newsome MD Lower Extremity Ultrasound 11/16/16 0000 Signed Impressions: Service Date/Time: Wednesday, November 16, 2016 22:30 - CONCLUSION: Normal examination. William James MD Objective Remarks GENERAL: This is a morbidly obese female patient, in no apparent distress. HEENT: Normocephalic. Pupils equal round and reactive. NECK: Trachea midline. No JVD. Supple. CARDIOVASCULAR: Regular rate and rhythm without murmurs, gallops, or rubs. Chest/axillary with wound vac in place. RESPIRATORY: Clear to auscultation. Breath sounds equal bilaterally. No wheezes , rales, or rhonchi. GASTROINTESTINAL: Abdomen soft, non-tender, nondistended. Bowel Sounds normoactive x4. : Marivn catheter draining yellow urine clear MUSCULOSKELETAL: Left arm with edema and pain to palpation upper mid just bellow the wound vac. Wound vac in place. Extremities without clubbing, cyanosis, trace lower extremity edema. NEUROLOGICAL: Awake and alert. Oriented x 3. No focal neuro deficit. MCLEOD. Normal speech. Procedures Right IJ central line 3/2 Excision and debridement necrotizing soft tissue infection, left axilla 40 x 25 cm. 3/5 Vac change with irrigation and debridement of large necrotizing fasciitis wound. 11/22 1. Partial closure of large open wound. 2. I&D large complex wound. 3. Replacement of VAC. A/P Problem List: (1) Anemia ICD Code: D64.9 Status: Acute (2) BLESSING (acute kidney injury) ICD Code: N17.9 Status: Acute (3) UTI (lower urinary tract infection) ICD Code: N39.0 Status: Acute (4) Morbid obesity ICD Code: E66.01 Status: Acute (5) Abscess of chest wall ICD Code: L02.213 Status: Acute (6) Hypertension ICD Code: I10 Status: Acute (7) Chronic acquired lymphedema ICD Code: I89.0 Status: Acute (8) Necrotizing fasciitis ICD Code: M72.6 Status: Acute Assessment and Plan Patient is a 66-year-old morbidly obese female with past medical history of hypertension, bilateral lower extremity lymphedema was undergone operative debridement of necrotizing fasciitis of left axilla, chest, back. Reportedly, developed a boil in the left axilla after shaving. This eventually drained spontaneously and showed some initial improvement. She then developed blisters of the axilla and chest wall. She developed some drainage from left chest. She had subjective fevers. She [place] [facility] [place]. Lainez was consulted emergently for evaluation for necrotizing fasciitis. She was taken emergently to OR where she underwent debridement of left axilla, breast, left chest wall, back with wound VAC placement. Left Arm edema and associated pain. Will do US to r/o DVT. Patient also says she had more PT/OT yesterday says she is learning to use less left hand. Septic shock secondary to Necrotizing fasciitis left axilla/chest wall /breast. -Status post debridement of the chest wall, axilla and back by Dr. Lainez with wound VAC placement. - Return to OR for further debridement , at some point, will need skin graft - Empiric coverage with Zosyn, stop per infectious disease.Blood cultures no growth but still with significant leukocytosis - slightly improved - Intraoperative wound culture staph aureus, Escherichia coli, urine culture grew Escherichia coli and lactobacillus. Off antibiotics, leukocytosis now 13.9, wound does not seem infected, continue present management. Further management per surgery, plastic surgery consulted today for possible skin grafting. Discussed with general surgery. Depression Postoperative pain management - Continue Percocet and IV Dilaudid as needed, when the next few days. - Counseled regarding narcotics Acute hypoxemic respiratory failure/postop - Nasal cannula to maintain saturations greater than equal to 92% note currently in room air - Incentive spirometry while awake History of hypertension - On metoprolol 25 twice a day and hydralazine 25 mg every 12 hours. Clonidine as needed. Morbid obesity BMI of 57.1 - Heart healthy diet - Colace/as needed Senokot for bowel regimen BLESSING - Renal sonogram with no obstruction. Consulted renal, acute kidney injury secondary to vancomycin and hypoperfusion - Marvin in place. Monitor intake and output. We'll discontinue Marvin once patient out of bed, creatinine stable Diarrhea - Negative C. difficile, likely antibiotic induced. Leukocytosis improving. Leukocytosis Normocytic anemia Thrombocytosis - likely reactive secondary to infection/inflammation - Bilateral lower ultrasound negative for DVT 11/16/16. - Transfused 4 units of PRBCs. Hemoccult negative. Peripheral smear showed leukocytosis and neutrophilia with reactive features and left shift. Severe normochromic, normocytic anemia, fibrinogen 491 possible increase secondary to inflammatory process Headache-Tylenol as needed, resolved. Hyperkalemia- resolved with Kayexalate. Hyperglycemia of critical illness. Stable - Discontinue sliding scale every 6 hours. Protonix 40 mg daily for stress ulcer prophylaxis. Heparin for DVT prophylaxis Discharge Planning Improved. Plan to DC home with home health. Discussed with Dr Lainez and CM regarding plan for DC. CM is following for DC. Problem Qualifiers (1) Morbid obesity: Qualified Code: E66.01 - Morbid obesity, unspecified obesity type (2) Hypertension: Qualified Code: I10 - Essential hypertension Gabby Casiano MD Dec 13, 2016 17:08
[2016-12-13 20:00] VITALS: BP 151/98; PULSE 103; RESP 20; TEMP 98.3; O2SAT 100
--- NOTE | 2016-12-13 21:53 | RADRPT ---
EXAM DATE/TIME: 12/13/2016 19:01 [place] COMPARISON: No previous studies available for comparison. INDICATIONS : Left arm edema. MEDICAL HISTORY : Hypertension. Arthritis. Bilateral ovarian cysts. Chroic lymphedema. Morbid obesity. SURGICAL HISTORY : None. ENCOUNTER: Initial ACUITY: 2 day PAIN SCORE: 7/10 LOCATION: Left arm. FINDINGS: There is spontaneous flow documented in the brachial, basilic, cephalic, axillary, and subclavian vei ns. The vessels are compressible and augmentation response is documented. No filling defects are se en. The flow is phasic with respiration. Direction of flow in the jugular vein is caudal. CONCLUSION: No evidence of deep venous thrombosis within the left upper extremity. David Groves MD on December 13, 2016 at 21:51 Board Certified Radiologist. This report was verified electronically.
[2016-12-13] MEDS: diphenhydrAMINE HCL 25 MG CAP PO PRN (22:42)
[2016-12-14] VITALS: BP 116/69; PULSE 90; RESP 20; TEMP 98; O2SAT 99
[2016-12-14] MEDS: HYDROmorphone HCL PF 1 MG/ML VIAL IV PUSH PRN ×2 (00:37→15:26)
[2016-12-14] MEDS: CHLORHEXIDINE GLUCONATE 2 % 1 PACK (2 CLOTHS) TOP SCH (04:00)
[2016-12-14] MEDS: oxyCODONE/ACETAMINOPHEN 10 MG/325 MG TAB PO PRN ×2 (07:39→21:58)
[2016-12-14] MEDS: HEPARIN SODIUM - SQ 10,000 UNITS/ML VIAL SQ SCH ×2 (07:40→16:47)
[2016-12-14 08:00] VITALS: BP_SYST 180; BP_SYST 183; BP_DIAS 110; BP_DIAS 111; PULSE 95; RESP 19; TEMP 97.5; O2SAT 98
[2016-12-14] MEDS: CHLORHEXIDINE 0.12% (ORAL KIT) 15 ML CUP MT SCH ×2 (08:00→20:00)
[2016-12-14] MEDS: LACTOBACILLUS ACIDOPHILUS TAB PO SCH ×3 (09:21→16:47)
[2016-12-14] MEDS: PANTOPRAZOLE SOD 40 MG DELAYED RELEASE TAB PO SCH (09:21)
[2016-12-14] MEDS: SODIUM CHLORIDE 0.9% FLUSH 5 ML FLUSH IV FLUSH SCH ×2 (09:21→21:00)
[2016-12-14] MEDS: DOCUSATE SODIUM 100 MG CAP TUBE SCH ×2 (09:21→21:58)
[2016-12-14] MEDS: hydrALAZINE HCL 25 MG TAB PO SCH ×2 (09:21→21:58)
[2016-12-14] MEDS: METOPROLOL TARTRATE 25 MG TAB PO SCH ×2 (09:21→21:59)
[2016-12-14 09:24] VITALS: BP 144/88
[2016-12-14 12:00] VITALS: BP_SYST 185; BP_SYST 189; BP_DIAS 112; BP_DIAS 97; PULSE 101; RESP 21; TEMP 97.6; O2SAT 99
--- NOTE | 2016-12-14 13:49 | HHI.PR ---
Subjective Remarks Still with swelling and pain at the left arm. US doesn't show DVT. Says she is trying to elevate arm with the pillows but is not working good. No fever or chills. No n/v/d/c. Objective Vitals Vital Signs Date Time Temp Pulse Resp B/P Pulse Ox O2 Delivery O2 Flow Rate FiO2 12/14/16 12:00 97.6 101 21 189/112 99 185/97 12/14/16 09:24 144/88 12/14/16 08:39 20 12/14/16 08:00 97.5 95 19 183/111 98 180/110 12/14/16 00:00 98.0 90 20 116/69 99 12/13/16 20:00 98.3 103 20 151/98 100 12/13/16 16:00 96.9 83 19 136/80 99 I/O 12/13/16 12/13/16 12/13/16 12/14/16 12/14/16 12/14/16 07:00 15:00 23:00 07:00 15:00 23:00 Intake Total 480 ml 480 ml 480 ml 120 ml Output Total 690 ml 400 ml 725 ml 1000 ml Balance -210 ml 80 ml -245 ml -880 ml Intake Oral 480 ml 480 ml 480 ml 120 ml IV Total 0 ml Output Urine Total 640 ml 400 ml 700 ml 1000 ml Drainage Total 50 ml 25 ml # Bowel Movements 0 0 1 Imaging Last Impressions Upper Extremity Ultrasound 12/13/16 0000 Signed Impressions: Service Date/Time: Tuesday, December 13, 2016 19:01 - CONCLUSION: No evidence of deep venous thrombosis within the left upper extremity. David Groves MD Renal Ultrasound 11/24/16 0000 Signed Impressions: Service Date/Time: November 09:51 - CONCLUSION: 1. Echogenic kidneys characteristic of medical renal disease. No hydronephrosis. Bladder unremarkable. William James MD Chest X-Ray 11/23/16 0600 Signed Impressions: Service Date/Time: Wednesday, November 23, 2016 04:13 - CONCLUSION: 1. Improving aeration in the left base with resolving atelectasis/effusion. 2. However, there is slight interval worsening of the atelectatic changes above the right hemidiaphragm. 3. Interstitial haziness suggesting some degree of vascular congestion or volume overload. Heart size remains prominent. 4. Stable position of life support tubes. Leo Newsome MD Lower Extremity Ultrasound 11/16/16 0000 Signed Impressions: Service Date/Time: Wednesday, November 16, 2016 22:30 - CONCLUSION: Normal examination. William James MD Objective Remarks GENERAL: This is a morbidly obese female patient, in no apparent distress. HEENT: Normocephalic. Pupils equal round and reactive. NECK: Trachea midline. No JVD. Supple. CARDIOVASCULAR: Regular rate and rhythm without murmurs, gallops, or rubs. Chest/axillary with wound vac in place. RESPIRATORY: Clear to auscultation. Breath sounds equal bilaterally. No wheezes , rales, or rhonchi. GASTROINTESTINAL: Abdomen soft, non-tender, nondistended. Bowel Sounds normoactive x4. : Marvin catheter draining yellow urine clear MUSCULOSKELETAL: Left arm with edema and pain to palpation upper mid just bellow the wound vac. Wound vac in place. Extremities without clubbing, cyanosis, trace lower extremity edema. NEUROLOGICAL: Awake and alert. Oriented x 3. No focal neuro deficit. MCLEOD. Normal speech. Procedures Right IJ central line 3/2 Excision and debridement necrotizing soft tissue infection, left axilla 40 x 25 cm. 3/ Vac change with irrigation and debridement of large necrotizing fasciitis wound. 11/22 1. Partial closure of large open wound. 2. I&D large complex wound. 3. Replacement of VAC. A/P Problem List: (1) Anemia ICD Code: D64.9 Status: Acute (2) BLESSING (acute kidney injury) ICD Code: N17.9 Status: Acute (3) UTI (lower urinary tract infection) ICD Code: N39.0 Status: Acute (4) Morbid obesity ICD Code: E66.01 Status: Acute (5) Abscess of chest wall ICD Code: L02.213 Status: Acute (6) Hypertension ICD Code: I10 Status: Acute (7) Chronic acquired lymphedema ICD Code: I89.0 Status: Acute (8) Necrotizing fasciitis ICD Code: M72.6 Status: Acute Assessment and Plan Patient is a 66-year-old morbidly obese female with past medical history of hypertension, bilateral lower extremity lymphedema was undergone operative debridement of necrotizing fasciitis of left axilla, chest, back. Reportedly, developed a boil in the left axilla after shaving. This eventually drained spontaneously and showed some initial improvement. She then developed blisters of the axilla and chest wall. She developed some drainage from left chest. She had subjective fevers. She presented to [facility] [place] where Dr. Lainez was consulted emergently for evaluation for necrotizing fasciitis. She was taken emergently to OR where she underwent debridement of left axilla, breast, left chest wall, back with wound VAC placement. Left Arm edema and associated pain. Doppler US shows no DVT. Patient also says she had more PT/OT says she is learning to use less left hand. Using pillows to elevate arm. mathematics technician consulted for sling to elevate left arm if possible without interfering much with axillary wound vac. Septic shock secondary to Necrotizing fasciitis left axilla/chest wall /breast. -Status post debridement of the chest wall, axilla and back by Dr. Lainez with wound VAC placement. - Return to OR for further debridement , at some point, will need skin graft - Empiric coverage with Zosyn, stop per infectious disease.Blood cultures no growth but still with significant leukocytosis - slightly improved - Intraoperative wound culture staph aureus, Escherichia coli, urine culture grew Escherichia coli and lactobacillus. Off antibiotics, leukocytosis now 13.9, wound does not seem infected, continue present management. Further management per surgery, plastic surgery consulted today for possible skin grafting. Discussed with general surgery. Depression Postoperative pain management - Continue Percocet and IV Dilaudid as needed, when the next few days. - Counseled regarding narcotics Acute hypoxemic respiratory failure/postop - Nasal cannula to maintain saturations greater than equal to 92% note currently in room air - Incentive spirometry while awake History of hypertension - On metoprolol 25 twice a day and hydralazine 25 mg every 12 hours. Clonidine as needed. Morbid obesity BMI of 57.1 - Heart healthy diet - Colace/as needed Senokot for bowel regimen BLESSING - Renal sonogram with no obstruction. Consulted renal, acute kidney injury secondary to vancomycin and hypoperfusion - Marvin in place. Monitor intake and output. We'll discontinue Marvin once patient out of bed, creatinine stable Diarrhea - Negative C. difficile, likely antibiotic induced. Leukocytosis improving. Leukocytosis Normocytic anemia Thrombocytosis - likely reactive secondary to infection/inflammation - Bilateral lower ultrasound negative for DVT 11/16/16. - Transfused 4 units of PRBCs. Hemoccult negative. Peripheral smear showed leukocytosis and neutrophilia with reactive features and left shift. Severe normochromic, normocytic anemia, fibrinogen 491 possible increase secondary to inflammatory process Headache-Tylenol as needed, resolved. Hyperkalemia- resolved with Kayexalate. Hyperglycemia of critical illness. Stable - Discontinue sliding scale every 6 hours. Protonix 40 mg daily for stress ulcer prophylaxis. Heparin for DVT prophylaxis Discharge Planning Improved. Plan to DC home with home health. Discussed with Dr Lainez and CM regarding plan for DC. CM is following for DC. Problem Qualifiers (1) Morbid obesity: Qualified Code: E66.01 - Morbid obesity, unspecified obesity type (2) Hypertension: Qualified Code: I10 - Essential hypertension Gabby Casiano MD Dec 14, 2016 13:49
[2016-12-14 16:00] VITALS: BP 174/99; PULSE 89; RESP 17; TEMP 98.4; O2SAT 98
[2016-12-14 20:00] VITALS: BP 142/91; PULSE 117; RESP 20; TEMP 98.7; O2SAT 97
[2016-12-15] VITALS: BP 138/86; PULSE 92; RESP 20; TEMP 97.6; O2SAT 95
[2016-12-15] MEDS: HEPARIN SODIUM - SQ 10,000 UNITS/ML VIAL SQ SCH ×4 (00:39→23:08)
[2016-12-15] MEDS: HYDROmorphone HCL PF 1 MG/ML VIAL IV PUSH PRN (00:40)
[2016-12-15] MEDS: CHLORHEXIDINE GLUCONATE 2 % 1 PACK (2 CLOTHS) TOP SCH (04:00)
[2016-12-15 08:00] VITALS: BP 184/114; PULSE 99; RESP 16; TEMP 99.6; O2SAT 100
[2016-12-15] MEDS: CHLORHEXIDINE 0.12% (ORAL KIT) 15 ML CUP MT SCH ×2 (08:00→20:00)
[2016-12-15] MEDS: DOCUSATE SODIUM 100 MG CAP TUBE SCH ×2 (09:00→21:00)
[2016-12-15] MEDS: oxyCODONE/ACETAMINOPHEN 10 MG/325 MG TAB PO PRN ×3 (09:59→23:08)
[2016-12-15] MEDS: LACTOBACILLUS ACIDOPHILUS TAB PO SCH ×3 (10:00→17:01)
[2016-12-15] MEDS: METOPROLOL TARTRATE 25 MG TAB PO SCH ×2 (10:00→21:51)
[2016-12-15] MEDS: hydrALAZINE HCL 25 MG TAB PO SCH (10:01)
[2016-12-15] MEDS: PANTOPRAZOLE SOD 40 MG DELAYED RELEASE TAB PO SCH (10:01)
[2016-12-15] MEDS: SODIUM CHLORIDE 0.9% FLUSH 5 ML FLUSH IV FLUSH SCH ×2 (10:16→21:53)
[2016-12-15 12:00] VITALS: BP 147/82; PULSE 100; RESP 20; TEMP 98.4; O2SAT 96
--- NOTE | 2016-12-15 12:54 | HHI.PR ---
Subjective Remarks Follow-up for left axillary wound. RN at bedside, no acute issues. The patient has no acute complaints at this time. She feels that the swelling and discomfort in her left arm has improved some. The patient states she had a headache earlier, but took some pain medication and went to sleep and it has resolved now. She's been eating and drinking well. Normal BMs. She is able to walk a few steps in the room, but does get winded. She was previously on metoprolol and metolazone as outpatient for BP and leg swelling. Objective Vitals Vital Signs Date Time Temp Pulse Resp B/P Pulse Ox O2 Delivery O2 Flow Rate FiO2 12/15/16 08:00 99.6 99 16 184/114 100 12/15/16 00:00 97.6 92 20 138/86 95 12/14/16 20:00 98.7 117 20 142/91 97 12/14/16 16:00 98.4 89 17 174/99 98 I/O 12/14/16 12/14/16 12/14/16 12/15/16 12/15/16 12/15/16 07:00 15:00 23:00 07:00 15:00 23:00 Intake Total 120 ml 240 ml 480 ml 220 ml Output Total 1000 ml 600 ml 850 ml 510 ml Balance -880 ml -360 ml -370 ml -290 ml Intake Oral 120 ml 240 ml 480 ml 220 ml Output Urine Total 1000 ml 600 ml 750 ml 450 ml Drainage Total 100 ml 60 ml # Bowel Movements 1 1 0 Imaging Last Impressions Upper Extremity Ultrasound 12/13/16 0000 Signed Impressions: Service Date/Time: Tuesday, December 13, 2016 19:01 - CONCLUSION: No evidence of deep venous thrombosis within the left upper extremity. David Groves MD Renal Ultrasound 11/24/16 0000 Signed Impressions: Service Date/Time: November 09:51 - CONCLUSION: 1. Echogenic kidneys characteristic of medical renal disease. No hydronephrosis. Bladder unremarkable. William James MD Chest X-Ray 11/23/16 0600 Signed Impressions: Service Date/Time: Wednesday, November 23, 2016 04:13 - CONCLUSION: 1. Improving aeration in the left base with resolving atelectasis/effusion. 2. However, there is slight interval worsening of the atelectatic changes above the right hemidiaphragm. 3. Interstitial haziness suggesting some degree of vascular congestion or volume overload. Heart size remains prominent. 4. Stable position of life support tubes. Leo Newsome MD Lower Extremity Ultrasound 11/16/16 0000 Signed Impressions: Service Date/Time: Wednesday, November 16, 2016 22:30 - CONCLUSION: Normal examination. William James MD Objective Remarks GENERAL: Well-developed well-nourished. Morbidly obese. In no acute distress. SKIN: Warm and dry. Left axilla with wound VAC in place with no erythema, warmth, or induration. HEENT: Normocephalic. Pupils equal and round. Mucous membranes pink and moist. CARDIOVASCULAR: Regular rate and rhythm. No murmur appreciated. RESPIRATORY: No accessory muscle use. Clear to auscultation. Breath sounds equal bilaterally. GASTROINTESTINAL: Abdomen soft, non-tender, nondistended. Bowel sounds x4. MUSCULOSKELETAL: No obvious deformities. No clubbing or cyanosis. Trace lower extremity edema. NEUROLOGICAL: Awake and alert. No focal neurological deficits. Moves upper and lower extremities spontaneously. Normal speech. PSYCHIATRIC: Appropriate mood and affect; insight and judgment normal. Procedures Right IJ central line 3/2 Excision and debridement necrotizing soft tissue infection, left axilla 40 x 25 cm. 3/ Vac change with irrigation and debridement of large necrotizing fasciitis wound. 11/22 1. Partial closure of large open wound. 2. I&D large complex wound. 3. Replacement of VAC. A/P Problem List: (1) Anemia ICD Code: D64.9 Status: Acute (2) BLESSING (acute kidney injury) ICD Code: N17.9 Status: Acute (3) UTI (lower urinary tract infection) ICD Code: N39.0 Status: Acute (4) Morbid obesity ICD Code: E66.01 Status: Acute (5) Abscess of chest wall ICD Code: L02.213 Status: Acute (6) Hypertension ICD Code: I10 Status: Acute (7) Chronic acquired lymphedema ICD Code: I89.0 Status: Acute (8) Necrotizing fasciitis ICD Code: M72.6 Status: Acute Assessment and Plan 66-year-old morbidly obese female with past medical history of hypertension, bilateral lower extremity lymphedema was undergone operative debridement of necrotizing fasciitis of left axilla, chest, back. Reportedly, developed a boil in the left axilla after shaving. This eventually drained spontaneously and showed some initial improvement. She then developed blisters of the axilla and chest wall. She developed some drainage from left chest. She had subjective fevers. She presented to [facility] [place] [facility] where Dr. Lainez was consulted emergently for evaluation for necrotizing fasciitis. She was taken emergently to OR where she underwent debridement of left axilla, breast, left chest wall, back with wound VAC placement. Left Arm edema and associated pain. Doppler US shows no DVT. Suspect swelling from increased activity from PT/OT says she is learning to use less left hand. Using pillows to elevate arm. cardiac cath lab radiology technologist consulted for sling to elevate left arm if possible without interfering much with axillary wound vac. Septic shock secondary to Necrotizing fasciitis left axilla/chest wall /breast. -Status post debridement of the chest wall, axilla and back by Dr. Lainez with wound VAC placement. - Return to OR for further debridement , at some point, will need skin graft - Empiric coverage with Zosyn, stop per infectious disease.Blood cultures no growth but still with significant leukocytosis - slightly improved - Intraoperative wound culture staph aureus, Escherichia coli, urine culture grew Escherichia coli and lactobacillus. Off antibiotics, leukocytosis now 13.9, wound does not seem infected, continue present management. - Plastic surgery consulted and recommended continuing wound VAC care Postoperative pain management - Continue Percocet as needed. IV Dilaudid for now with dressing changes Acute hypoxemic respiratory failure/postop - resolved - Nasal cannula to maintain saturations greater than equal to 92% note currently in room air - Incentive spirometry while awake History of hypertension - BP has been labile, increased metoprolol to 50 mg twice a day. Hold hydralazine for now. Clonidine as needed. - Consider resuming her metolazone if renal function is better and as BP allows Morbid obesity BMI of 57.1 - Heart healthy diet - Colace/as needed Senokot for bowel regimen BLESSING - Renal sonogram with no obstruction. Consulted renal, acute kidney injury secondary to vancomycin and hypoperfusion Diarrhea - Negative C. difficile, likely antibiotic induced. Leukocytosis improving. Leukocytosis Normocytic anemia Thrombocytosis - likely reactive secondary to infection/inflammation - Bilateral lower ultrasound negative for DVT 11/16/16. - Transfused PRBCs 3/3 and 12/01. Hemoccult negative. - Peripheral smear showed leukocytosis and neutrophilia with reactive features and left shift. Severe normochromic, normocytic anemia, fibrinogen 491 possible increase secondary to inflammatory process Headache-Tylenol as needed, resolved. Protonix 40 mg daily for stress ulcer prophylaxis. Heparin for DVT prophylaxis Discharge Planning PT ordered Monday through Monday. Discharge planning to home with outpatient PT and home nursing for wound VAC care once patient is stronger. Discussed with RN and Dr. Casiano. Problem Qualifiers (1) Morbid obesity: Qualified Code: E66.01 - Morbid obesity, unspecified obesity type (2) Hypertension: Qualified Code: I10 - Essential hypertension Navin Funez Dec 15, 2016 12:54 Gabby Casiano MD Dec 15, 2016 14:28
[2016-12-15 16:00] VITALS: BP 174/87; PULSE 87; RESP 18; TEMP 98.3; O2SAT 96
[2016-12-15 20:00] VITALS: BP 178/106; PULSE 98; RESP 20; TEMP 96; O2SAT 95
[2016-12-15] MEDS ORDERED: METOPROLOL TARTRATE 25 MG TAB PO SCH (21:00)
[2016-12-15] MEDS: SIMETHICONE 125 MG CHEWABLE TAB PO PRN (21:56)
[2016-12-15 23:44] VITALS: BP 162/90; PULSE 84; RESP 20; TEMP 97.8; O2SAT 97
[2016-12-16] MEDS: hydrOXYzine PAMOATE 25 MG CAP PO PRN (01:01)
[2016-12-16] MEDS: CHLORHEXIDINE GLUCONATE 2 % 1 PACK (2 CLOTHS) TOP SCH (02:58)
[2016-12-16 04:00] VITALS: BP 183/100; PULSE 75; RESP 20; TEMP 96.4; O2SAT 99
[2016-12-16] MEDS: oxyCODONE/ACETAMINOPHEN 10 MG/325 MG TAB PO PRN ×2 (04:48→20:27)
[2016-12-16] MEDS: cloNIDine HCL 0.1 MG TAB PO PRN (04:48)
[2016-12-16 08:00] VITALS: BP 165/91; PULSE 97; RESP 20; TEMP 96.3; O2SAT 98
[2016-12-16] MEDS: CHLORHEXIDINE 0.12% (ORAL KIT) 15 ML CUP MT SCH ×2 (08:00→20:00)
[2016-12-16] MEDS: PANTOPRAZOLE SOD 40 MG DELAYED RELEASE TAB PO SCH (08:54)
[2016-12-16] MEDS: DOCUSATE SODIUM 100 MG CAP TUBE SCH ×2 (08:54→20:22)
[2016-12-16] MEDS: HEPARIN SODIUM - SQ 10,000 UNITS/ML VIAL SQ SCH ×2 (08:54→16:09)
[2016-12-16] MEDS: LACTOBACILLUS ACIDOPHILUS TAB PO SCH ×3 (08:54→16:09)
[2016-12-16] MEDS: ACETAMINOPHEN 325 MG TAB PO PRN (08:58)
[2016-12-16] MEDS: METOPROLOL TARTRATE 25 MG TAB PO SCH ×2 (08:58→20:21)
[2016-12-16] MEDS: SODIUM CHLORIDE 0.9% FLUSH 5 ML FLUSH IV FLUSH SCH ×2 (09:06→20:22)
[2016-12-16] MEDS: HYDROmorphone HCL PF 1 MG/ML VIAL IV PUSH PRN (10:09)
[2016-12-16 12:00] VITALS: BP 102/55; PULSE 56; RESP 18; TEMP 97.1; O2SAT 94
--- NOTE | 2016-12-16 13:38 | HHI.PR ---
Subjective Remarks Follow-up for his left axillary wound, hypertension, difficulty with ambulation. The patient was able to walk around the entire room with PT today, states she felt good. Left upper extremity swelling and discomfort has resolved. Objective Vitals Vital Signs Date Time Temp Pulse Resp B/P Pulse Ox O2 Delivery O2 Flow Rate FiO2 12/16/16 08:00 96.3 97 20 165/91 98 12/16/16 04:00 96.4 75 20 183/100 99 12/15/16 23:44 97.8 84 20 162/90 97 12/15/16 20:00 96.0 98 20 178/106 95 12/15/16 16:00 98.3 87 18 174/87 96 I/O 12/15/16 12/15/16 12/15/16 12/16/16 12/16/16 12/16/16 07:00 15:00 23:00 07:00 15:00 23:00 Intake Total 220 ml 480 ml 360 ml 360 ml Output Total 510 ml 25 ml 50 ml 50 ml Balance -290 ml 455 ml 310 ml 310 ml Intake Oral 220 ml 480 ml 360 ml 360 ml Output Urine Total 450 ml Drainage Total 60 ml 25 ml 50 ml 50 ml # Voids 2 2 4 # Bowel Movements 1 1 Objective Remarks GENERAL: Well-developed well-nourished. Morbidly obese. In no acute distress. SKIN: Warm and dry. Left axilla with wound VAC in place with no erythema, warmth, or induration. HEENT: Normocephalic. Pupils equal and round. Mucous membranes pink and moist. CARDIOVASCULAR: Regular rate and rhythm. No murmur appreciated. RESPIRATORY: No accessory muscle use. Clear to auscultation. Breath sounds equal bilaterally. GASTROINTESTINAL: Abdomen soft, non-tender, nondistended. Bowel sounds x4. MUSCULOSKELETAL: No obvious deformities. No clubbing or cyanosis. Trace lower extremity edema. NEUROLOGICAL: Awake and alert. No focal neurological deficits. Moves upper and lower extremities spontaneously. Normal speech. PSYCHIATRIC: Appropriate mood and affect; insight and judgment normal. Procedures Right IJ central line 3/2 Excision and debridement necrotizing soft tissue infection, left axilla 40 x 25 cm. 11/20 Vac change with irrigation and debridement of large necrotizing fasciitis wound. 11/22 1. Partial closure of large open wound. 2. I&D large complex wound. 3. Replacement of VAC. A/P Problem List: (1) Anemia ICD Code: D64.9 Status: Acute (2) BLESSING (acute kidney injury) ICD Code: N17.9 Status: Acute (3) UTI (lower urinary tract infection) ICD Code: N39.0 Status: Acute (4) Morbid obesity ICD Code: E66.01 Status: Acute (5) Abscess of chest wall ICD Code: L02.213 Status: Acute (6) Hypertension ICD Code: I10 Status: Acute (7) Chronic acquired lymphedema ICD Code: I89.0 Status: Acute (8) Necrotizing fasciitis ICD Code: M72.6 Status: Acute Assessment and Plan 66-year-old morbidly obese female with past medical history of hypertension, bilateral lower extremity lymphedema was undergone operative debridement of necrotizing fasciitis of left axilla, chest, back. Reportedly, developed a boil in the left axilla after shaving. This eventually drained spontaneously and showed some initial improvement. She then developed blisters of the axilla and chest wall. She developed some drainage from left chest. She had subjective fevers. She presented to [facility] [place] [facility] where Dr. Lainez was consulted emergently for evaluation for necrotizing fasciitis. She was taken emergently to OR where she underwent debridement of left axilla, breast, left chest wall, back with wound VAC placement. Left Arm edema and associated pain. Doppler US shows no DVT. Suspect swelling from increased activity from PT/OT says she is learning to use less left hand. Using pillows to elevate arm. technical services rep consulted for sling to elevate left arm if possible without interfering much with axillary wound vac. Septic shock secondary to Necrotizing fasciitis left axilla/chest wall /breast. -Status post debridement of the chest wall, axilla and back by Dr. Lainez with wound VAC placement. - Return to OR for further debridement , at some point, will need skin graft - Empiric coverage with Zosyn, stop per infectious disease.Blood cultures no growth but still with significant leukocytosis - slightly improved - Intraoperative wound culture staph aureus, Escherichia coli, urine culture grew Escherichia coli and lactobacillus. Off antibiotics, leukocytosis now 13.9, wound does not seem infected, continue present management. - Plastic surgery consulted and recommended continuing wound VAC care Postoperative pain management - Continue Percocet as needed. IV Dilaudid for now with dressing changes Acute hypoxemic respiratory failure/postop - resolved - Nasal cannula to maintain saturations greater than equal to 92% note currently in room air - Incentive spirometry while awake History of hypertension - BP has been labile, increased metoprolol to 50 mg twice a day, may continue to increase dose. Hold hydralazine for now. Clonidine as needed. - Follow-up BMP and consider resuming her metolazone if renal function is better Morbid obesity BMI of 57.1 - Heart healthy diet - Colace/as needed Senokot for bowel regimen BLESSING - Renal sonogram with no obstruction. Consulted renal, acute kidney injury secondary to vancomycin and hypoperfusion Diarrhea - Negative C. difficile, likely antibiotic induced. Leukocytosis improving. Leukocytosis Normocytic anemia Thrombocytosis - likely reactive secondary to infection/inflammation - Bilateral lower ultrasound negative for DVT 11/16/16. - Transfused PRBCs 11/18 and 12/01. Hemoccult negative. - Peripheral smear showed leukocytosis and neutrophilia with reactive features and left shift. Severe normochromic, normocytic anemia, fibrinogen 491 possible increase secondary to inflammatory process Headache-Tylenol as needed. Resolved. Protonix 40 mg daily for stress ulcer prophylaxis. Heparin for DVT prophylaxis Discharge Planning PT ordered Monday through Monday. Discharge planning to home with outpatient PT and home nursing for wound VAC care once patient is stronger. Problem Qualifiers (1) Morbid obesity: Qualified Code: E66.01 - Morbid obesity, unspecified obesity type (2) Hypertension: Qualified Code: I10 - Essential hypertension Navin Funez Dec 16, 2016 13:38 Gabby Casiano MD Dec 16, 2016 15:44
[2016-12-16 16:00] VITALS: BP 154/85; PULSE 84; RESP 20; TEMP 98.3; O2SAT 99
[2016-12-16 20:00] VITALS: BP 165/102; PULSE 84; RESP 20; TEMP 96.6; O2SAT 100
[2016-12-17] VITALS: BP 157/85; PULSE 50; RESP 19; TEMP 97.8; O2SAT 100
[2016-12-17] MEDS: HEPARIN SODIUM - SQ 10,000 UNITS/ML VIAL SQ SCH ×3 (01:04→16:46)
[2016-12-17] MEDS: ACETAMINOPHEN 325 MG TAB PO PRN ×2 (01:08→22:11)
[2016-12-17] MEDS: hydrOXYzine PAMOATE 25 MG CAP PO PRN (01:08)
[2016-12-17] MEDS: CHLORHEXIDINE GLUCONATE 2 % 1 PACK (2 CLOTHS) TOP SCH (04:00)
[2016-12-17] MEDS: oxyCODONE/ACETAMINOPHEN 10 MG/325 MG TAB PO PRN ×2 (05:34→16:46)
[2016-12-17 06:02] LABS: AUTOMATED NEUTROPHIL # 9.2 TH/MM3 (1.8-7.7); BASOPHIL % 0.3 % (0.0-2.0); EOSINOPHIL # 0.3 TH/MM3 (0-0.4); EOSINOPHIL % 2.3 % (0.0-4.0); HEMATOCRIT 30.6 % (35.0-46.0); HEMO FLAGS DIFF FINAL; LYMPH % 12.8 % (9.0-44.0); LYMPHOCYTE # 1.5 TH/MM3 (1.0-4.8); MEAN CORPUSCULAR HEMOGLOBIN 28.9 PG (27.0-34.0); MEAN CORPUSCULAR HGB CONC 33.2 % (32.0-36.0); NEUT % 76.6 % (16.0-70.0); PLATELET COUNT 350 TH/MM3 (150-450); RED BLOOD COUNT 3.52 MIL/MM3 (4.00-5.30); RED CELL DISTRIBUTION WIDTH 18.2 % (11.6-17.2)
[2016-12-17 06:21] LABS: BICARBONATE 23.8 MEQ/L (21.0-32.0); POTASSIUM 3.7 MEQ/L (3.5-5.1)
[2016-12-17] MEDS: DOCUSATE SODIUM 100 MG CAP TUBE SCH ×2 (07:48→21:00)
[2016-12-17] MEDS: PANTOPRAZOLE SOD 40 MG DELAYED RELEASE TAB PO SCH (07:48)
[2016-12-17] MEDS: METOPROLOL TARTRATE 25 MG TAB PO SCH ×2 (07:48→22:04)
[2016-12-17] MEDS: LACTOBACILLUS ACIDOPHILUS TAB PO SCH ×3 (07:48→16:46)
[2016-12-17] MEDS: SODIUM CHLORIDE 0.9% FLUSH 5 ML FLUSH IV FLUSH SCH ×2 (07:49→21:00)
[2016-12-17] MEDS: CHLORHEXIDINE 0.12% (ORAL KIT) 15 ML CUP MT SCH ×2 (07:49→20:00)
[2016-12-17 08:00] VITALS: BP 179/102; PULSE 75; RESP 16; TEMP 96.6; O2SAT 100
--- NOTE | 2016-12-17 10:07 | HHI.PR ---
Subjective Remarks Feesl improved today. Had multiple normal BM yesterday and one today. No diarrhea. No fevers or chills. Says swelling on the left arm is improved and not painful anymore. No fever or chills. Objective Vitals Vital Signs Date Time Temp Pulse Resp B/P Pulse Ox O2 Delivery O2 Flow Rate FiO2 12/17/16 08:00 96.6 75 16 179/102 100 12/17/16 00:00 97.8 50 19 157/85 100 12/16/16 20:00 96.6 84 20 165/102 100 12/16/16 16:00 98.3 84 20 154/85 99 12/16/16 12:00 97.1 56 18 102/55 94 I/O 12/16/16 12/16/16 12/16/16 12/17/16 12/17/16 12/17/16 07:00 15:00 23:00 07:00 15:00 23:00 Intake Total 360 ml 800 ml 240 ml 360 ml Output Total 50 ml 925 ml 200 ml 50 ml Balance 310 ml -125 ml 40 ml 310 ml Intake Oral 360 ml 800 ml 240 ml 360 ml IV Total 0 ml Output Urine Total 900 ml 200 ml Drainage Total 50 ml 25 ml 0 ml 50 ml # Voids 4 1 3 # Bowel Movements 1 1 2 1 Result Diagram: 12/17/16 0515 12/17/16 0515 Imaging Last Impressions Upper Extremity Ultrasound 12/13/16 0000 Signed Impressions: Service Date/Time: Tuesday, December 13, 2016 19:01 - CONCLUSION: No evidence of deep venous thrombosis within the left upper extremity. David Groves MD Renal Ultrasound 11/24/16 0000 Signed Impressions: Service Date/Time: November 09:51 - CONCLUSION: 1. Echogenic kidneys characteristic of medical renal disease. No hydronephrosis. Bladder unremarkable. William James MD Chest X-Ray 11/23/16 0600 Signed Impressions: Service Date/Time: Wednesday, November 23, 2016 04:13 - CONCLUSION: 1. Improving aeration in the left base with resolving atelectasis/effusion. 2. However, there is slight interval worsening of the atelectatic changes above the right hemidiaphragm. 3. Interstitial haziness suggesting some degree of vascular congestion or volume overload. Heart size remains prominent. 4. Stable position of life support tubes. Leo Newsome MD Lower Extremity Ultrasound 11/16/16 0000 Signed Impressions: Service Date/Time: Wednesday, November 16, 2016 22:30 - CONCLUSION: Normal examination. William James MD Objective Remarks GENERAL: This is a morbidly obese female patient, in no apparent distress. HEENT: Normocephalic. Pupils equal round and reactive. NECK: Trachea midline. No JVD. Supple. CARDIOVASCULAR: Regular rate and rhythm without murmurs, gallops, or rubs. Chest/axillary with wound vac in place. RESPIRATORY: Clear to auscultation. Breath sounds equal bilaterally. No wheezes , rales, or rhonchi. GASTROINTESTINAL: Abdomen soft, non-tender, nondistended. Bowel Sounds normoactive x4. : Marvin catheter draining yellow urine clear MUSCULOSKELETAL: Left arm with edema and pain to palpation upper mid just bellow the wound vac. Wound vac in place. Extremities without clubbing, cyanosis, trace lower extremity edema. NEUROLOGICAL: Awake and alert. Oriented x 3. No focal neuro deficit. MCLEOD. Normal speech. Procedures Right IJ central line 3/2 Excision and debridement necrotizing soft tissue infection, left axilla 40 x 25 cm. 3/ Vac change with irrigation and debridement of large necrotizing fasciitis wound. 11/22 1. Partial closure of large open wound. 2. I&D large complex wound. 3. Replacement of VAC. A/P Problem List: (1) Anemia ICD Code: D64.9 Status: Acute (2) BLESSING (acute kidney injury) ICD Code: N17.9 Status: Acute (3) UTI (lower urinary tract infection) ICD Code: N39.0 Status: Acute (4) Morbid obesity ICD Code: E66.01 Status: Acute (5) Abscess of chest wall ICD Code: L02.213 Status: Acute (6) Hypertension ICD Code: I10 Status: Acute (7) Chronic acquired lymphedema ICD Code: I89.0 Status: Acute (8) Necrotizing fasciitis ICD Code: M72.6 Status: Acute Assessment and Plan Patient is a 66-year-old morbidly obese female with past medical history of hypertension, bilateral lower extremity lymphedema was undergone operative debridement of necrotizing fasciitis of left axilla, chest, back. Reportedly, developed a boil in the left axilla after shaving. This eventually drained spontaneously and showed some initial improvement. She then developed blisters of the axilla and chest wall. She developed some drainage from left chest. She had subjective fevers. She presented to [facility] [place] ED where Dr. Lainez was consulted emergently for evaluation for necrotizing fasciitis. She was taken emergently to OR where she underwent debridement of left axilla, breast, left chest wall, back with wound VAC placement. Left Arm edema and associated pain, improved. Doppler US shows no DVT. Patient also says she had more PT/OT says she is learning to use less left hand. Using pillows to elevate arm. operations technician consulted for sling to elevate left arm if possible without interfering much with axillary wound vac. Septic shock secondary to Necrotizing fasciitis left axilla/chest wall /breast. -Status post debridement of the chest wall, axilla and back by Dr. Lainez with wound VAC placement. - Return to OR for further debridement , at some point, will need skin graft - Empiric coverage with Zosyn, stop per infectious disease.Blood cultures no growth but still with significant leukocytosis - slightly improved - Intraoperative wound culture staph aureus, Escherichia coli, urine culture grew Escherichia coli and lactobacillus. Off antibiotics, leukocytosis now 13.9, wound does not seem infected, continue present management. Further management per surgery, plastic surgery consulted today for possible skin grafting. Discussed with general surgery. Depression Postoperative pain management - Continue Percocet and IV Dilaudid as needed, when the next few days. - Counseled regarding narcotics Acute hypoxemic respiratory failure/postop - Nasal cannula to maintain saturations greater than equal to 92% note currently in room air - Incentive spirometry while awake History of hypertension - On metoprolol 50 mg twice a day will increase hydralazine to 50 mg every 12 hours. Clonidine as needed. Morbid obesity BMI of 57.1 - Heart healthy diet - Colace/as needed Senokot for bowel regimen BLESSING - Renal sonogram with no obstruction. Consulted renal, acute kidney injury secondary to vancomycin and hypoperfusion - Marvin in place. Monitor intake and output. We'll discontinue Marvin once patient out of bed, creatinine stable. Cr improved. Diarrhea - Negative C. difficile, likely antibiotic induced. Leukocytosis improving. Leukocytosis. Improved Normocytic anemia Thrombocytosis - likely reactive secondary to infection/inflammation - Bilateral lower ultrasound negative for DVT 11/16/16. - Transfused 4 units of PRBCs. Hemoccult negative. Peripheral smear showed leukocytosis and neutrophilia with reactive features and left shift. Severe normochromic, normocytic anemia, fibrinogen 491 possible increase secondary to inflammatory process Headache-Tylenol as needed, resolved. Hyperkalemia- resolved with Kayexalate. Monitor Hyperglycemia of critical illness. Stable - Discontinue sliding scale every 6 hours. Protonix 40 mg daily for stress ulcer prophylaxis. Heparin for DVT prophylaxis Discharge Planning Improved. Plan to DC home with home health. Discussed with Dr Lainez and CM regarding plan for DC. CM is following for DC. Problem Qualifiers (1) Morbid obesity: Qualified Code: E66.01 - Morbid obesity, unspecified obesity type (2) Hypertension: Qualified Code: I10 - Essential hypertension Gabby Casiano MD Dec 17, 2016 10:07
[2016-12-17] MEDS ORDERED: amLODIPine BESYLATE 5 MG TAB PO ONE (11:45)
[2016-12-17] MEDS: hydrALAZINE HCL 50 MG TAB PO SCH ×2 (11:57→22:04)
[2016-12-17 12:00] VITALS: BP 186/113; PULSE 82; RESP 20; TEMP 96.9; O2SAT 100
[2016-12-17 16:00] VITALS: BP 176/84; PULSE 94; RESP 20; TEMP 98.1; O2SAT 98
[2016-12-17 20:00] VITALS: BP 135/79; PULSE 104; RESP 22; TEMP 98.2; O2SAT 97
[2016-12-17] MEDS: RESP: ALBUTEROL 2.5 MG/3 ML NEB (PRN) INH (23:32)
[2016-12-17 23:36] VITALS: O2SAT 100
[2016-12-18] VITALS: BP 132/83; PULSE 86; RESP 22; TEMP 97.6; O2SAT 97
[2016-12-18] MEDS: HEPARIN SODIUM - SQ 10,000 UNITS/ML VIAL SQ SCH ×3 (00:16→16:00)
[2016-12-18] MEDS: HYDROmorphone HCL PF 1 MG/ML VIAL IV PUSH PRN (00:16)
[2016-12-18] MEDS: CHLORHEXIDINE GLUCONATE 2 % 1 PACK (2 CLOTHS) TOP SCH (04:00)
[2016-12-18] MEDS: RESP: ALBUTEROL 2.5 MG/3 ML NEB (PRN) INH (07:29)
[2016-12-18 08:00] VITALS: BP 173/79; PULSE 104; RESP 20; TEMP 97.4; O2SAT 96
[2016-12-18] MEDS: CHLORHEXIDINE 0.12% (ORAL KIT) 15 ML CUP MT SCH ×2 (08:00→20:00)
[2016-12-18] MEDS: hydrALAZINE HCL 50 MG TAB PO SCH ×2 (08:11→20:56)
[2016-12-18] MEDS: METOPROLOL TARTRATE 25 MG TAB PO SCH ×2 (08:11→20:56)
[2016-12-18] MEDS: PANTOPRAZOLE SOD 40 MG DELAYED RELEASE TAB PO SCH (08:11)
[2016-12-18] MEDS: SODIUM CHLORIDE 0.9% FLUSH 5 ML FLUSH IV FLUSH SCH ×2 (08:12→20:58)
[2016-12-18] MEDS: DOCUSATE SODIUM 100 MG CAP TUBE SCH ×2 (08:12→20:58)
[2016-12-18] MEDS: LACTOBACILLUS ACIDOPHILUS TAB PO SCH ×3 (08:12→17:24)
[2016-12-18] MEDS ORDERED: amLODIPine BESYLATE 5 MG TAB PO SCH (09:00)
--- NOTE | 2016-12-18 09:15 | HHI.PR ---
Objective Vitals Vital Signs Date Time Temp Pulse Resp B/P Pulse Ox O2 Delivery O2 Flow Rate FiO2 12/18/16 00:00 97.6 86 22 132/83 97 12/17/16 23:36 100 21 12/17/16 20:00 98.2 104 22 135/79 97 12/17/16 16:00 98.1 94 20 176/84 98 12/17/16 12:00 96.9 82 20 186/113 100 I/O 12/17/16 12/17/16 12/17/16 12/18/16 12/18/16 12/18/16 07:00 15:00 23:00 07:00 15:00 23:00 Intake Total 360 ml 800 ml 240 ml 250 ml Output Total 50 ml 1025 ml 200 ml 320 ml Balance 310 ml -225 ml 40 ml -70 ml Intake Oral 360 ml 800 ml 240 ml 250 ml IV Total 0 ml Output Urine Total 1000 ml 200 ml 300 ml Drainage Total 50 ml 25 ml 20 ml # Voids 3 1 # Bowel Movements 1 2 2 0 Result Diagram: 12/17/16 0515 12/17/16 0515 Jaime Roldan MD Dec 18, 2016 09:15 (1) Anemia ICD Code: D64.9 Status: Acute (2) BLESSING (acute kidney injury) ICD Code: N17.9 Status: Acute (3) UTI (lower urinary tract infection) ICD Code: N39.0 Status: Acute (4) Morbid obesity ICD Code: E66.01 Status: Acute (5) Abscess of chest wall ICD Code: L02.213 Status: Acute (6) Hypertension ICD Code: I10 Status: Acute (7) Chronic acquired lymphedema ICD Code: I89.0 Status: Acute (8) Necrotizing fasciitis ICD Code: M72.6 Status: Acute Problem Qualifiers (1) Morbid obesity: Qualified Code: E66.01 - Morbid obesity, unspecified obesity type (2) Hypertension: Qualified Code: I10 - Essential hypertension Jaime Roldan MD Dec 18, 2016 09:15 Status: Acute Assessment and Plan Patient is a 66-year-old morbidly obese female with past medical history of hypertension, bilateral lower extremity lymphedema was undergone operative debridement of necrotizing fasciitis of left axilla, chest, back. Reportedly, developed a boil in the left axilla after shaving. This eventually drained spontaneously and showed some initial improvement. She then developed blisters of the axilla and chest wall. She developed some drainage from left chest. She had subjective fevers. She presented to [facility] [place] where Dr. Lainez was consulted emergently for evaluation for necrotizing fasciitis. She was taken emergently to OR where she underwent debridement of left axilla, breast, left chest wall, back with wound VAC placement. Left Arm edema and associated pain, improved. Doppler US shows no DVT. Patient also says she had more PT/OT says she is learning to use less left hand. Using pillows to elevate arm. mapping technician consulted for sling to elevate left arm if possible without interfering much with axillary wound vac. Septic shock secondary to Necrotizing fasciitis left axilla/chest wall /breast. -Status post debridement of the chest wall, axilla and back by Dr. Lainez with wound VAC placement. - Return to OR for further debridement , at some point, will need skin graft - Empiric coverage with Zosyn, stop per infectious disease.Blood cultures no growth but still with significant leukocytosis - slightly improved - Intraoperative wound culture staph aureus, Escherichia coli, urine culture grew Escherichia coli and lactobacillus. Off antibiotics, leukocytosis now 13.9, wound does not seem infected, continue present management. Further management per surgery, plastic surgery consulted today for possible skin grafting. Discussed with general surgery. Depression Postoperative pain management - Continue Percocet and IV Dilaudid as needed, when the next few days. - Counseled regarding narcotics Acute hypoxemic respiratory failure/postop - Nasal cannula to maintain saturations greater than equal to 92% note currently in room air - Incentive spirometry while awake History of hypertension - On metoprolol 50 mg twice a day will increase hydralazine to 50 mg every 12 hours. Clonidine as needed. Morbid obesity BMI of 57.1 - Heart healthy diet - Colace/as needed Senokot for bowel regimen BLESSING - Renal sonogram with no obstruction. Consulted renal, acute kidney injury secondary to vancomycin and hypoperfusion - Marvin in place. Monitor intake and output. We'll discontinue Marvin once patient out of bed, creatinine stable. Cr improved. Diarrhea - Negative C. difficile, likely antibiotic induced. Leukocytosis improving. Leukocytosis. Improved Normocytic anemia Thrombocytosis - likely reactive secondary to infection/inflammation - Bilateral lower ultrasound negative for DVT 11/16/16. - Transfused 4 units of PRBCs. Hemoccult negative. Peripheral smear showed leukocytosis and neutrophilia with reactive features and left shift. Severe normochromic, normocytic anemia, fibrinogen 491 possible increase secondary to inflammatory process Headache-Tylenol as needed, resolved. Hyperkalemia- resolved with Kayexalate. Monitor Hyperglycemia of critical illness. Stable - Discontinue sliding scale every 6 hours. Protonix 40 mg daily for stress ulcer prophylaxis. Heparin for DVT prophylaxis Discharge Planning Improved. Plan to DC home with home health. Discussed with Dr Lainez and CM regarding plan for DC. CM is following for DC. Problem Qualifiers (1) Morbid obesity: Qualified Code: E66.01 - Morbid obesity, unspecified obesity type (2) Hypertension: Qualified Code: I10 - Essential hypertension Jaime Roldan MD Dec 18, 2016 09:15
--- NOTE | 2016-12-18 09:25 | HHI.PR ---
Subjective Remarks no pain- rarely ask for pain meds- IV prn only for VAC change some loose stools this am good po appetite Objective Vitals Vital Signs Date Time Temp Pulse Resp B/P Pulse Ox O2 Delivery O2 Flow Rate FiO2 12/18/16 00:00 97.6 86 22 132/83 97 12/17/16 23:36 100 21 12/17/16 20:00 98.2 104 22 135/79 97 12/17/16 16:00 98.1 94 20 176/84 98 12/17/16 12:00 96.9 82 20 186/113 100 I/O 12/17/16 12/17/16 12/17/16 12/18/16 12/18/16 12/18/16 07:00 15:00 23:00 07:00 15:00 23:00 Intake Total 360 ml 800 ml 240 ml 250 ml Output Total 50 ml 1025 ml 200 ml 320 ml Balance 310 ml -225 ml 40 ml -70 ml Intake Oral 360 ml 800 ml 240 ml 250 ml IV Total 0 ml Output Urine Total 1000 ml 200 ml 300 ml Drainage Total 50 ml 25 ml 20 ml # Voids 3 1 # Bowel Movements 1 2 2 0 Result Diagram: 12/17/16 0515 12/17/16 0515 Imaging Last Impressions Upper Extremity Ultrasound 12/13/16 0000 Signed Impressions: Service Date/Time: Tuesday, December 13, 2016 19:01 - CONCLUSION: No evidence of deep venous thrombosis within the left upper extremity. David Groves MD Renal Ultrasound 11/24/16 0000 Signed Impressions: Service Date/Time: November 09:51 - CONCLUSION: 1. Echogenic kidneys characteristic of medical renal disease. No hydronephrosis. Bladder unremarkable. William James MD Chest X-Ray 11/23/16 0600 Signed Impressions: Service Date/Time: Wednesday, November 23, 2016 04:13 - CONCLUSION: 1. Improving aeration in the left base with resolving atelectasis/effusion. 2. However, there is slight interval worsening of the atelectatic changes above the right hemidiaphragm. 3. Interstitial haziness suggesting some degree of vascular congestion or volume overload. Heart size remains prominent. 4. Stable position of life support tubes. Leo Newsome MD Lower Extremity Ultrasound 11/16/16 0000 Signed Impressions: Service Date/Time: Wednesday, November 16, 2016 22:30 - CONCLUSION: Normal examination. William James MD Objective Remarks awake and alert, oriented x 3 anicteric left axillary area- VAC in place lungs- no rales regular rhythm abdomen soft, nontender extremities no edema, no calf tenderness neuro exam- non focal Procedures Right IJ central line 3/2 Excision and debridement necrotizing soft tissue infection, left axilla 40 x 25 cm. / Vac change with irrigation and debridement of large necrotizing fasciitis wound. 11/22 1. Partial closure of large open wound. 2. I&D large complex wound. 3. Replacement of VAC. A/P Problem List: (1) Anemia ICD Code: D64.9 Status: Acute (2) BLESSING (acute kidney injury) ICD Code: N17.9 Status: Acute (3) UTI (lower urinary tract infection) ICD Code: N39.0 Status: Acute (4) Morbid obesity ICD Code: E66.01 Status: Acute (5) Abscess of chest wall ICD Code: L02.213 Status: Acute (6) Hypertension ICD Code: I10 Status: Acute (7) Chronic acquired lymphedema ICD Code: I89.0 Status: Acute (8) Necrotizing fasciitis ICD Code: M72.6 Status: Acute Assessment and Plan Patient is a 66-year-old morbidly obese female with past medical history of hypertension, bilateral lower extremity lymphedema was undergone operative debridement of necrotizing fasciitis of left axilla, chest, back. Reportedly, developed a boil in the left axilla after shaving. This eventually drained spontaneously and showed some initial improvement. She then developed blisters of the axilla and chest wall. She developed some drainage from left chest. She had subjective fevers. She [place] [facility] [place]. Lainez was consulted emergently for evaluation for necrotizing fasciitis. She was taken emergently to OR where she underwent debridement of left axilla, breast, left chest wall, back with wound VAC placement. Left Arm edema and associated pain, improved. Doppler US shows no DVT. Patient also says she had more PT/OT says she is learning to use less left hand. Using pillows to elevate arm. inventory technician consulted for sling to elevate left arm if possible without interfering much with axillary wound vac. Septic shock secondary to Necrotizing fasciitis left axilla/chest wall /breast. -Status post debridement of the chest wall, axilla and back by Dr. Lainez with wound VAC placement. - Return to OR for further debridement , at some point, will need skin graft - Empiric coverage with Zosyn, stop per infectious disease.Blood cultures no growth but still with significant leukocytosis - slightly improved - Intraoperative wound culture staph aureus, Escherichia coli, urine culture grew Escherichia coli and lactobacillus. Off antibiotics, leukocytosis now 13.9, wound does not seem infected, continue present management. Further management per surgery, plastic surgery consulted today for possible skin grafting. Discussed with general surgery. Depression Postoperative pain management - Continue Percocet and IV Dilaudid as needed, when the next few days. - Counseled regarding narcotics Acute hypoxemic respiratory failure/postop- resolved - Nasal cannula to maintain saturations greater than equal to 92% note currently in room air - Incentive spirometry while awake History of hypertension - On metoprolol 50 mg twice a day. hydralazine to 50 mg every 12 hours. - will monitor and adjust meds Clonidine as needed. Morbid obesity BMI of 57.1 - Heart healthy diet - Colace/as needed Senokot for bowel regimen BLESSING, resolved - Renal sonogram with no obstruction. Consulted renal, acute kidney injury secondary to vancomycin and hypoperfusion - Marvin in place. Monitor intake and output. We'll discontinue Marvin once patient out of bed, creatinine stable. Cr improved. Diarrhea - Negative C. difficile, likely antibiotic induced. Leukocytosis improving. - on Lactinex- monitor Leukocytosis. Improved Normocytic anemia Thrombocytosis - likely reactive secondary to infection/inflammation - Bilateral lower ultrasound negative for DVT 11/16/16. - Transfused 4 units of PRBCs. Hemoccult negative. Peripheral smear showed leukocytosis and neutrophilia with reactive features and left shift. - Severe normochromic, normocytic anemia, fibrinogen 491 possible increase secondary to inflammatory process Headache-Tylenol as needed, resolved. Hyperkalemia- resolved with Kayexalate. Monitor Hyperglycemia of critical illness. Stable - Discontinue sliding scale every 6 hours. Protonix 40 mg daily for stress ulcer prophylaxis. Heparin for DVT prophylaxis Discharge Planning Improved. Plan to DC home with home health. Discussed with Dr Lainez and CM regarding plan for DC. CM is following for DC. Problem Qualifiers (1) Morbid obesity: Qualified Code: E66.01 - Morbid obesity, unspecified obesity type (2) Hypertension: Qualified Code: I10 - Essential hypertension Jaime Roldan MD Dec 18, 2016 09:25
[2016-12-18] MEDS: oxyCODONE/ACETAMINOPHEN 10 MG/325 MG TAB PO PRN ×2 (10:32→17:14)
[2016-12-18 12:00] VITALS: BP 173/99; PULSE 83; RESP 20; TEMP 97.8; O2SAT 100
[2016-12-18 16:00] VITALS: BP 170/91; PULSE 84; RESP 18; TEMP 97; O2SAT 98
[2016-12-18 20:00] VITALS: BP 170/93; PULSE 99; RESP 24; TEMP 98.3; O2SAT 99
[2016-12-19] VITALS: BP 170/93; PULSE 87; RESP 22; TEMP 97.1; O2SAT 98
[2016-12-19] MEDS: HEPARIN SODIUM - SQ 10,000 UNITS/ML VIAL SQ SCH ×3 (01:26→16:39)
[2016-12-19] MEDS: hydrOXYzine PAMOATE 25 MG CAP PO PRN (01:30)
[2016-12-19] MEDS: HYDROmorphone HCL PF 1 MG/ML VIAL IV PUSH PRN ×2 (01:38→14:25)
[2016-12-19] MEDS: CHLORHEXIDINE GLUCONATE 2 % 1 PACK (2 CLOTHS) TOP SCH (04:00)
[2016-12-19 08:00] VITALS: BP 167/87; PULSE 92; RESP 17; TEMP 97.8; O2SAT 98
[2016-12-19] MEDS: CHLORHEXIDINE 0.12% (ORAL KIT) 15 ML CUP MT SCH ×2 (08:00→20:00)
[2016-12-19] MEDS: DOCUSATE SODIUM 100 MG CAP TUBE SCH ×2 (09:00→21:00)
[2016-12-19] MEDS: METOPROLOL TARTRATE 25 MG TAB PO SCH ×2 (09:06→21:10)
[2016-12-19] MEDS: LACTOBACILLUS ACIDOPHILUS TAB PO SCH ×3 (09:06→16:39)
[2016-12-19] MEDS: oxyCODONE/ACETAMINOPHEN 10 MG/325 MG TAB PO PRN ×2 (09:06→21:09)
[2016-12-19] MEDS: PANTOPRAZOLE SOD 40 MG DELAYED RELEASE TAB PO SCH (09:07)
[2016-12-19] MEDS: hydrALAZINE HCL 50 MG TAB PO SCH ×2 (09:07→21:09)
[2016-12-19] MEDS: SODIUM CHLORIDE 0.9% FLUSH 5 ML FLUSH IV FLUSH SCH ×2 (09:08→21:00)
[2016-12-19 12:00] VITALS: BP 135/91; PULSE 99; RESP 17; TEMP 97.8; O2SAT 99
[2016-12-19] MEDS: RESP: ALBUTEROL 2.5 MG/3 ML NEB (PRN) INH (12:26)
--- NOTE | 2016-12-19 13:25 | HHI.PR ---
Subjective Remarks BM once soft so far no pain complains due for VAC change today Objective Vitals Vital Signs Date Time Temp Pulse Resp B/P Pulse Ox O2 Delivery O2 Flow Rate FiO2 12/19/16 12:00 97.8 99 17 135/91 99 12/19/16 08:00 97.8 92 17 167/87 98 12/19/16 00:00 97.1 87 22 170/93 98 12/18/16 20:00 98.3 99 24 170/93 99 12/18/16 16:00 97.0 84 18 170/91 98 I/O 12/18/16 12/18/16 12/18/16 12/19/16 12/19/16 12/19/16 07:00 15:00 23:00 07:00 15:00 23:00 Intake Total 250 ml 600 ml 480 ml 240 ml Output Total 320 ml 620 ml 350 ml 450 ml Balance -70 ml -20 ml 130 ml -210 ml Intake Oral 250 ml 600 ml 480 ml 240 ml IV Total 0 ml Output Urine Total 300 ml 600 ml 350 ml 450 ml Drainage Total 20 ml 20 ml # Bowel Movements 0 2 0 0 Result Diagram: 12/17/16 0515 12/17/16 0515 Imaging Last Impressions Upper Extremity Ultrasound 12/13/16 0000 Signed Impressions: Service Date/Time: Tuesday, December 13, 2016 19:01 - CONCLUSION: No evidence of deep venous thrombosis within the left upper extremity. David Groves MD Renal Ultrasound 11/24/16 0000 Signed Impressions: Service Date/Time: November 09:51 - CONCLUSION: 1. Echogenic kidneys characteristic of medical renal disease. No hydronephrosis. Bladder unremarkable. William James MD Chest X-Ray 11/23/16 0600 Signed Impressions: Service Date/Time: Wednesday, November 23, 2016 04:13 - CONCLUSION: 1. Improving aeration in the left base with resolving atelectasis/effusion. 2. However, there is slight interval worsening of the atelectatic changes above the right hemidiaphragm. 3. Interstitial haziness suggesting some degree of vascular congestion or volume overload. Heart size remains prominent. 4. Stable position of life support tubes. Leo Newsome MD Lower Extremity Ultrasound 11/16/16 0000 Signed Impressions: Service Date/Time: Wednesday, November 16, 2016 22:30 - CONCLUSION: Normal examination. William James MD Objective Remarks awake and alert, oriented x 3 anicteric left axillary area- VAC in place lungs- no rales regular rhythm abdomen soft, nontender extremities no edema, no calf tenderness neuro exam- non focal A/P Problem List: (1) Anemia ICD Code: D64.9 Status: Acute (2) BLESSING (acute kidney injury) ICD Code: N17.9 Status: Acute (3) UTI (lower urinary tract infection) ICD Code: N39.0 Status: Acute (4) Morbid obesity ICD Code: E66.01 Status: Acute (5) Abscess of chest wall ICD Code: L02.213 Status: Acute (6) Hypertension ICD Code: I10 Status: Acute (7) Chronic acquired lymphedema ICD Code: I89.0 Status: Acute (8) Necrotizing fasciitis ICD Code: M72.6 Status: Acute Assessment and Plan Patient is a 66-year-old morbidly obese female with past medical history of hypertension, bilateral lower extremity lymphedema was undergone operative debridement of necrotizing fasciitis of left axilla, chest, back. Reportedly, developed a boil in the left axilla after shaving. This eventually drained spontaneously and showed some initial improvement. She then developed blisters of the axilla and chest wall. She developed some drainage from left chest. She had subjective fevers. She presented to [facility] [place] Dr. Lainez was consulted emergently for evaluation for necrotizing fasciitis. She was taken emergently to OR where she underwent debridement of left axilla, breast, left chest wall, back with wound VAC placement. Left Arm edema and associated pain, improved. Doppler US shows no DVT. Patient also says she had more PT/OT says she is learning to use less left hand. Using pillows to elevate arm. sling to elevate left arm if possible without interfering much with axillary wound vac. Septic shock secondary to Necrotizing fasciitis left axilla/chest wall /breast. -Status post debridement of the chest wall, axilla and back by Dr. Lainez with wound VAC placement. - Return to OR for further debridement , at some point, will need skin graft - S/P Empiric coverage with Zosyn, stop per infectious disease.Blood cultures no growth but still with significant leukocytosis - slightly improved - Intraoperative wound culture staph aureus, Escherichia coli, urine culture grew Escherichia coli and lactobacillus. Off antibiotics, leukocytosis now 13.9, wound does not seem infected, continue present management. Further management per surgery, plastic surgery consulted for possible skin grafting. Depression Postoperative pain management - Continue Percocet and IV Dilaudid as needed, when the next few days. - Counseled regarding narcotics Acute hypoxemic respiratory failure/postop- resolved - Nasal cannula to maintain saturations greater than equal to 92% note currently in room air - Incentive spirometry while awake History of hypertension - On metoprolol 50 mg twice a day. hydralazine to 50 mg every 12 hours. - will monitor and adjust meds Clonidine as needed. Morbid obesity BMI of 57.1 - Heart healthy diet - Colace/as needed Senokot for bowel regimen BLESSING, resolved - Renal sonogram with no obstruction. Consulted renal, acute kidney injury secondary to vancomycin and hypoperfusion - Marvin in place. Monitor intake and output. We'll discontinue Marvin once patient out of bed, creatinine stable. Cr improved. Diarrhea - Negative C. difficile, likely antibiotic induced. Leukocytosis improving. - on Lactinex- monitor Leukocytosis. Improved Normocytic anemia Thrombocytosis - likely reactive secondary to infection/inflammation - Bilateral lower ultrasound negative for DVT 11/16/16. - Transfused 4 units of PRBCs. Hemoccult negative. Peripheral smear showed leukocytosis and neutrophilia with reactive features and left shift. - Severe normochromic, normocytic anemia, fibrinogen 491 possible increase secondary to inflammatory process Headache-Tylenol as needed, resolved. Hyperkalemia- resolved with Kayexalate. Monitor Hyperglycemia of critical illness. Stable - Discontinue sliding scale every 6 hours. Protonix 40 mg daily for stress ulcer prophylaxis. Heparin for DVT prophylaxis Discharge Planning Improved. Plan to DC home with home health. Discussed with Dr Lainez and SUSI regarding plan for DC. CM is following for DC. Problem Qualifiers (1) Morbid obesity: Qualified Code: E66.01 - Morbid obesity, unspecified obesity type (2) Hypertension: Qualified Code: I10 - Essential hypertension Jaime Roldan MD Dec 19, 2016 13:25
[2016-12-19 16:00] VITALS: BP 141/78; PULSE 101; RESP 16; TEMP 98.4; O2SAT 97
[2016-12-19] MEDS: SIMETHICONE 125 MG CHEWABLE TAB PO PRN (21:08)
[2016-12-19 21:14] VITALS: BP 139/89; PULSE 97; RESP 16; TEMP 96; O2SAT 99
[2016-12-20] VITALS: BP 178/100; PULSE 85; RESP 19; TEMP 97.5; O2SAT 100
[2016-12-20] MEDS: hydrOXYzine PAMOATE 25 MG CAP PO PRN (00:27)
[2016-12-20] MEDS: cloNIDine HCL 0.1 MG TAB PO PRN (00:27)
[2016-12-20] MEDS: HYDROmorphone HCL PF 1 MG/ML VIAL IV PUSH PRN ×2 (00:28→08:24)
[2016-12-20] MEDS: CHLORHEXIDINE GLUCONATE 2 % 1 PACK (2 CLOTHS) TOP SCH (04:00)
[2016-12-20 05:00] VITALS: BP 174/96
[2016-12-20] MEDS: oxyCODONE/ACETAMINOPHEN 10 MG/325 MG TAB PO PRN (05:50)
[2016-12-20 08:00] VITALS: BP 141/90; PULSE 85; RESP 17; TEMP 96.7; O2SAT 97
[2016-12-20] MEDS: CHLORHEXIDINE 0.12% (ORAL KIT) 15 ML CUP MT SCH (08:00)
[2016-12-20] MEDS: HEPARIN SODIUM - SQ 10,000 UNITS/ML VIAL SQ SCH ×2 (08:24)
[2016-12-20] MEDS: DOCUSATE SODIUM 100 MG CAP TUBE SCH (08:24)
[2016-12-20] MEDS: METOPROLOL TARTRATE 25 MG TAB PO SCH (08:24)
[2016-12-20] MEDS: hydrALAZINE HCL 50 MG TAB PO SCH (08:24)
[2016-12-20] MEDS: PANTOPRAZOLE SOD 40 MG DELAYED RELEASE TAB PO SCH (08:24)
[2016-12-20] MEDS: LACTOBACILLUS ACIDOPHILUS TAB PO SCH (08:25)
[2016-12-20] MEDS: SODIUM CHLORIDE 0.9% FLUSH 5 ML FLUSH IV FLUSH SCH (08:25)
--- NOTE | 2016-12-20 08:54 | HHI.PR ---
Subjective Remarks awake and alert, denies any pain, chest pains or shortness of breath voiding spontaneously, no diarrhea feeling better- she is already up this am- and on the chair having breakfast Objective Vitals Vital Signs Date Time Temp Pulse Resp B/P Pulse Ox O2 Delivery O2 Flow Rate FiO2 12/20/16 08:00 96.7 85 17 141/90 97 12/20/16 05:00 174/96 12/20/16 00:00 97.5 85 19 178/100 100 12/19/16 21:14 96.0 97 16 139/89 99 12/19/16 16:00 98.4 101 16 141/78 97 12/19/16 12:00 97.8 99 17 135/91 99 I/O 12/19/16 12/19/16 12/19/16 12/20/16 12/20/16 12/20/16 07:00 15:00 23:00 07:00 15:00 23:00 Intake Total 240 ml 960 ml 240 ml 240 ml Output Total 450 ml 690 ml 150 ml 0 ml Balance -210 ml 270 ml 90 ml 240 ml Intake Oral 240 ml 960 ml 240 ml 240 ml IV Total 0 ml 0 ml Output Urine Total 450 ml 650 ml 100 ml Drainage Total 40 ml 50 ml 0 ml # Voids 2 2 # Bowel Movements 0 2 3 2 Result Diagram: 12/17/16 0515 12/17/16 0515 Imaging Last Impressions Upper Extremity Ultrasound 12/13/16 0000 Signed Impressions: Service Date/Time: Tuesday, December 13, 2016 19:01 - CONCLUSION: No evidence of deep venous thrombosis within the left upper extremity. David Groves MD Renal Ultrasound 11/24/16 0000 Signed Impressions: Service Date/Time: November 09:51 - CONCLUSION: 1. Echogenic kidneys characteristic of medical renal disease. No hydronephrosis. Bladder unremarkable. William James MD Chest X-Ray 11/23/16 0600 Signed Impressions: Service Date/Time: Wednesday, November 23, 2016 04:13 - CONCLUSION: 1. Improving aeration in the left base with resolving atelectasis/effusion. 2. However, there is slight interval worsening of the atelectatic changes above the right hemidiaphragm. 3. Interstitial haziness suggesting some degree of vascular congestion or volume overload. Heart size remains prominent. 4. Stable position of life support tubes. Leo Newsome MD Lower Extremity Ultrasound 11/16/16 0000 Signed Impressions: Service Date/Time: Wednesday, November 16, 2016 22:30 - CONCLUSION: Normal examination. William James MD Objective Remarks awake and alert, oriented x 3 anicteric left axillary area- VAC in place lungs- no rales regular rhythm abdomen soft, nontender extremities no edema, no calf tenderness neuro exam- non focal A/P Problem List: (1) Anemia ICD Code: D64.9 Status: Acute (2) BLESSING (acute kidney injury) ICD Code: N17.9 Status: Acute (3) UTI (lower urinary tract infection) ICD Code: N39.0 Status: Acute (4) Morbid obesity ICD Code: E66.01 Status: Acute (5) Abscess of chest wall ICD Code: L02.213 Status: Acute (6) Hypertension ICD Code: I10 Status: Acute (7) Chronic acquired lymphedema ICD Code: I89.0 Status: Acute (8) Necrotizing fasciitis ICD Code: M72.6 Status: Acute Assessment and Plan Patient is a 66-year-old morbidly obese female with past medical history of hypertension, bilateral lower extremity lymphedema was undergone operative debridement of necrotizing fasciitis of left axilla, chest, back. Reportedly, developed a boil in the left axilla after shaving. This eventually drained spontaneously and showed some initial improvement. She then developed blisters of the axilla and chest wall. She developed some drainage from left chest. She had subjective fevers. She presented to [facility] [place] where Dr. Lainez was consulted emergently for evaluation for necrotizing fasciitis. She was taken emergently to OR where she underwent debridement of left axilla, breast, left chest wall, back with wound VAC placement. Left Arm edema and associated pain, improved. Doppler US shows no DVT. Septic shock secondary to Necrotizing fasciitis left axilla/chest wall /breast. -Status post debridement of the chest wall, axilla and back by Dr. Lainez with wound VAC placement. - Return to OR for further debridement , at some point, will need skin graft - S/P Empiric coverage with Zosyn, stop per infectious disease.Blood cultures no growth - Intraoperative wound culture staph aureus, Escherichia coli, urine culture grew Escherichia coli and lactobacillus. - seen by Dr. Del Toro on consultation- OP ff up at wound clinic 2x a week Depression Postoperative pain management - Continue Percocet - Counseled regarding narcotics Acute hypoxemic respiratory failure/postop- resolved - Nasal cannula to maintain saturations greater than equal to 92% note currently in room air - Incentive spirometry while awake History of hypertension- - On metoprolol 50 mg twice a day. hydralazine to 50 mg every 12 hours. - some elevated readings- add amlodipine 2.5 mg po daily Morbid obesity BMI of 57.1 - Heart healthy diet - Colace/as needed BLESSING, resolved - Renal sonogram with no obstruction. Consulted renal, acute kidney injury secondary to vancomycin and hypoperfusion Diarrhea- improved - Negative C. difficile, likely antibiotic induced. Leukocytosis improving. - on Lactinex- monitor Leukocytosis. Improved Normocytic anemia Thrombocytosis - likely reactive secondary to infection/inflammation - Bilateral lower ultrasound negative for DVT 11/16/16. - Transfused 4 units of PRBCs. Hemoccult negative. Peripheral smear showed leukocytosis and neutrophilia with reactive features and left shift. - Severe normochromic, normocytic anemia, fibrinogen 491 possible increase secondary to inflammatory process Headache-Tylenol as needed, resolved. Hyperkalemia- resolved with Kayexalate. Monitor Hyperglycemia of critical illness. Stable - Discontinue sliding scale every 6 hours. Protonix 40 mg daily for stress ulcer prophylaxis. Heparin for DVT prophylaxis Discharge Planning Improved. Plan to DC home with home health. will d/w CM 3:1 commode, wheelchair, front wheel walker arranged for home health care nursing d/w CM- arranged Problem Qualifiers (1) Morbid obesity: Qualified Code: E66.01 - Morbid obesity, unspecified obesity type (2) Hypertension: Qualified Code: I10 - Essential hypertension Jaime Roldan MD Dec 20, 2016 08:54
[2016-12-20] MEDS ORDERED: amLODIPine BESYLATE 5 MG TAB PO SCH (09:00)
[2016-12-20] MEDS ORDERED: PILL SPLITTER OTHER PRN (09:00)
[2016-12-20] MEDS ORDERED: NIFEdipine 30 MG SUSTAINED RELEASE TAB PO SCH (09:00)
[2016-12-20] MEDS ORDERED: METO25TA3 PO (09:01)
[2016-12-20] MEDS ORDERED: AMLO5 PO (09:02)
[2016-12-20] MEDS ORDERED: HYDROmorphone HCL PF 1 MG/ML VIAL IV PUSH PRN (10:00)
[2016-12-20] MEDS: RESP: ALBUTEROL 2.5 MG/3 ML NEB (PRN) INH (11:26)
--- NOTE | 2017-01-06 09:06 | HHI.DS ---
Discharge Summary Admission Date Nov 16, 2016 at 18:38 Discharge Date: Dec 20, 2016 Admitting Diagnosis chest wall infection, sepsis (1) Necrotizing fasciitis ICD Code: M72.6 Diagnosis: Principal (2) Abscess of chest wall ICD Code: L02.213 Diagnosis: Principal (3) Anemia ICD Code: D64.9 Diagnosis: Principal (4) BLESSING (acute kidney injury) ICD Code: N17.9 Diagnosis: Secondary (5) UTI (lower urinary tract infection) ICD Code: N39.0 Diagnosis: Secondary (6) Morbid obesity ICD Code: E66.01 Diagnosis: Secondary (7) Hypertension ICD Code: I10 Diagnosis: Secondary (8) Chronic acquired lymphedema ICD Code: I89.0 Diagnosis: Secondary Procedures debridement of the chest wall, axilla and back by Dr. Lainez 11/16/16 with wound VAC placement. Brief History - From Admission 36 yo morbidly obese female with past medical history of hypertension, bilateral lower extremity lymphedema who has undergone operative debridement for necrotizing fasciitis of left axilla, chest, back. Reportedly, about two weeks ago she developed a boil in left axilla after shaving. This eventually drained spontaneously and showed some initial improvement. She then developed blisters of the axilla and chest wall. About 2 days ago she developed some drainage from left chest. She had subjective fevers. She presented to [facility] where Dr. Lainez was consulted emergently for evaluation for necrotizing fasciitis. She provided informed surgical consent and was taken emergently to OR where she underwent debridement of left axilla, breast, left chest wall, back with wound VAC placement. Anesthesia records indicate that she was intubated with 2 Grant without reported difficulty. She received 2500 crystalloid. Estimated blood loss was 350. She received Zosyn, clindamycin, vancomycin. She was briefly on pressors in the OR but these have been weaned off. She is to remain intubated for postoperative resuscitation and for tentative plan to return to OR Monday morning 11/18/16 for debridement and wound vac change. PE at Discharge awake and alert, oriented x 3 anicteric left axillary area- VAC in place lungs- no rales regular rhythm abdomen soft, nontender extremities no edema, no calf tenderness neuro exam- non focal Hospital Course Patient is a 66-year-old morbidly obese female with past medical history of hypertension, bilateral lower extremity lymphedema was undergone operative debridement of necrotizing fasciitis of left axilla, chest, back. Reportedly, developed a boil in the left axilla after shaving. This eventually drained spontaneously and showed some initial improvement. She then developed blisters of the axilla and chest wall. She developed some drainage from left chest. She had subjective fevers. She presented to [facility] where Dr. Lainez was consulted emergently for evaluation for necrotizing fasciitis. She was taken emergently to OR where she underwent debridement of left axilla, breast, left chest wall, back with wound VAC placement. Left Arm edema and associated pain, improved. Doppler US shows no DVT. Septic shock secondary to Necrotizing fasciitis left axilla/chest wall /breast. -Status post debridement of the chest wall, axilla and back by Dr. Lainez with wound VAC placement. - Return to OR for further debridement , at some point, will need skin graft - S/P Empiric coverage with Zosyn, stop per infectious disease.Blood cultures no growth - Intraoperative wound culture staph aureus, Escherichia coli, urine culture grew Escherichia coli and lactobacillus. - seen by Dr. Del Toro on consultation- OP ff up at wound clinic 2x a week Depression Postoperative pain management - Continue Percocet - Counseled regarding narcotics Acute hypoxemic respiratory failure/postop- resolved - Nasal cannula to maintain saturations greater than equal to 92% note currently in room air - Incentive spirometry while awake History of hypertension- - On metoprolol 50 mg twice a day. hydralazine to 50 mg every 12 hours. - some elevated readings- add amlodipine 2.5 mg po daily Morbid obesity BMI of 57.1 - Heart healthy diet - Colace/as needed BLESSING, resolved - Renal sonogram with no obstruction. Consulted renal, acute kidney injury secondary to vancomycin and hypoperfusion Diarrhea- improved - Negative C. difficile, likely antibiotic induced. Leukocytosis improving. - on Lactinex- monitor Leukocytosis. Improved Normocytic anemia Thrombocytosis - likely reactive secondary to infection/inflammation - Bilateral lower ultrasound negative for DVT 11/16/16. - Transfused 4 units of PRBCs. Hemoccult negative. Peripheral smear showed leukocytosis and neutrophilia with reactive features and left shift. - Severe normochromic, normocytic anemia, fibrinogen 491 possible increase secondary to inflammatory process Headache-Tylenol as needed, resolved. Hyperkalemia- resolved with Kayexalate. Monitor Hyperglycemia of critical illness. Stable - Discontinue sliding scale every 6 hours. Protonix 40 mg daily for stress ulcer prophylaxis. Heparin for DVT prophylaxis Discharge Planning Improved. Plan to DC home with home health. will d/w CM 3:1 commode, wheelchair, front wheel walker arranged for home health care nursing d/w CM- arranged Pt Condition on Discharge: Stable Discharge Disposition: Disch w/ Home Health Serv Discharge Time: > 30 minutes Discharge Instructions DIET: Follow Instructions for: Heart Healthy Diet Speech Therapy-Diet Recommends: Regular Activities you can perform: Regular-No Restrictions Activities to Avoid: Prolonged Standing, Strenuous Activity Follow up Referrals: PCP Follow-up - 3-5 Days Surgical - 1 Week with Jose Armando Lainez MD [facility] - 2-3 Days New Medications: 3-in-1 Bedside Toilet (3-in-1 Bedside Toilet) 1 Mis Mis 1 EA .ROUTE DIRECTED bariatric 3 in 1 bedisde commode #1 EA Walker with Front Wheels (Walker with Front Wheels) 1 Mis Mis 1 EA .ROUTE DIRECTED bariatric front wheeled walker #1 Ref 0 EA Amlodipine (Norvasc) 5 Mg Tab 2.5 MG PO DAILY HTN Days 30 TAB Hydralazine (Hydralazine) 25 Mg Tab 25 MG PO Q12HR Blood Pressure Management #60 TAB Metoprolol Tartrate (Metoprolol Tartrate) 25 Mg Tab 50 MG PO BID HTN Days 30 TAB Continued Medications: Diphenhydramine-Acetaminophen (Tylenol Pm Extra Strength) 25-500 Mg Tab 2 TAB PO HS Discontinued Medications: Ibuprofen (Advil) 200 Mg Tab 400 MG PO QID PRN Ref 0 TAB Metolazone (Metolazone) 5 Mg Tab 5 MG PO DAILY EDEMA #30 Ref 0 TAB Metoprolol Tartrate (Metoprolol Tartrate) 25 Mg Tab 25 MG PO BID TACHYCARDIA #60 Ref 0 TAB Potassium Chloride ER (K-Tab) 20 Meq Tab 20 MEQ PO BID Electrolyte Replacement #60 Ref 0 TAB Jaime Roldan MD Jan 06, 2017 09:06
== END 2016-12-20 12:19 | disposition home health service (06) | DRG 853 ==
LOC: NEPE 16:14 → NEDA 18:38 → N03A 23:48 → N07A 11-28 17:56
PROVIDERS: ADMIT Internal Medicine; ATTEND Internal Medicine
PROC: 0HBU0ZZ Excision of Left Breast, Open Approach (ICD-10-PCS; 2016-11-16)
PROC: 5A1955Z Respiratory Ventilation, Greater than 96 Consecutive Hours (ICD-10-PCS; 2016-11-16)
PROC: 0JB60ZZ Excision of Chest Subcutaneous Tissue and Fascia, Open Approach (ICD-10-PCS; principal; 2016-11-16 19:07)
PROC: 0JD60ZZ Extraction of Chest Subcutaneous Tissue and Fascia, Open Approach (ICD-10-PCS; 2016-11-18)
PROC: 30233N1 Transfusion of Nonautologous Red Blood Cells into Peripheral Vein, Percutaneous Approach (ICD-10-PCS; 2016-11-18)
PROC: 0JQ60ZZ Repair Chest Subcutaneous Tissue and Fascia, Open Approach (ICD-10-PCS; 2016-11-21)
PROC: 0J9600Z Drainage of Chest Subcutaneous Tissue and Fascia with Drainage Device, Open Approach (ICD-10-PCS; 2016-11-21)
DX: A41.51 Sepsis due to Escherichia coli [E. coli] (principal); M72.6 Necrotizing fasciitis; N17.0 Acute kidney failure with tubular necrosis; R65.21 Severe sepsis with septic shock; E87.2 Acidosis; J95.821 Acute postprocedural respiratory failure; Z68.43 Body mass index [BMI] 50.0-59.9, adult; L02.213 Cutaneous abscess of chest wall; N39.0 Urinary tract infection, site not specified; A41.01 Sepsis due to Methicillin susceptible Staphylococcus aureus; I10 Essential (primary) hypertension; E66.01 Morbid (severe) obesity due to excess calories; E87.70 Fluid overload, unspecified; I89.0 Lymphedema, not elsewhere classified; E87.6 Hypokalemia; R73.9 Hyperglycemia, unspecified; F32.9 Major depressive disorder, single episode, unspecified; E87.5 Hyperkalemia; D64.9 Anemia, unspecified; D75.89 Other specified diseases of blood and blood-forming organs; R19.7 Diarrhea, unspecified; F12.90 Cannabis use, unspecified, uncomplicated; T36.8X5A Adverse effect of other systemic antibiotics, initial encounter; F17.210 Nicotine dependence, cigarettes, uncomplicated; Z16.12 Extended spectrum beta lactamase (ESBL) resistance; Z83.3 Family history of diabetes mellitus
CPT/HCPCS: 36430; 71010; 76775; 76937; 80048; 80053; 80202; 81001; 82272; 82550; 82570; 82728; 82805; 82948; 83036; 83540; 83550; 83605; 83735; 83880; 84100; 84155; 84300; 84484; 85007; 85025; 85027; 85060; 85384; 85610; 85730; 86140; 86403; 86850; 86900; 86901; 86920; 87015; 87040; 87070; 87077; 87086; 87102; 87116; 87176; 87185; 87186; 87205; 87206; 87493; 87641; 88305; 88307; 90714; 93005; 93971; 94002; 94003; 94150; 94640; 94664; C9113; J1170; J1644; J1815; J1940; J2250; J2270; J2370; J2405; J2543; J2710; J3010; J3370; J3480; J7030; J7040; J7050; J7120; J7613; P9016; Q0177

== ENCOUNTER 2017-01-05 13:37 | Inpatient (IN) | payer OTHER ==
[~2017-01-05] VITALS: Ht 175.3 cm; Wt 175.0 kg
[~2017-01-05 13:37] MED LIST changes: +AMLO5 PO; -CYCL1PAK PO; +CYCL1TAB29 PO; +DIPH1TAB36 PO; +HYDR25TA35 PO; -KCL20 PO; +LACT PO; -LACTATED RINGER'S 1000 ML INJ 1,000 ML IV ONE; -LEVA750T PO; -METO25 PO; +METO25TA3 PO; -METO5 PO; -METO5TAB46 PO; +MISC-163; -NEOSTIGMINE 3 MG/3 ML SYR IV ONE; -NORMOSOL R INJ 1,000 ML IV ONE; -ONDANSETRON HCL 4 MG/2 ML VIAL IV PUSH ONE; +OXYC1TAB63 PO; -PERC5TAB12 PO; -PHENYLEPH/NS 1000 MCG/10 ML SYR IV ONE; -POTA10TA2 PO; -PROPOFOL 200 MG/20 ML AMP IV ONE; -TRAM50 PO; +TRAZ50TA12 PO; -TRAZ50TA4 PO; +WALKER WHEELS/F1 MIS
[2017-01-05 13:41] VITALS: BP 167/103; PULSE 103; RESP 15; TEMP 98.8; O2SAT 98
--- NOTE | 2017-01-05 14:01 | PD ---
Physical Exam Time Seen by Provider: 13:58 Narrative 36yo F w c/o left breast swelling on Monday and pus-like drainage from area noticed this moring by wound care nurse. Patient was seen here about a month ago with necrotizing fasciitis. Denies fever, vomiting. Reports diarrhea. Patient stable. Patient seen in triage. Awaiting bed placement. Data Data Last Documented VS Vital Signs Date Time Temp Pulse Resp B/P Pulse Ox O2 Delivery O2 Flow Rate FiO2 01/05/17 13:41 98.8 103 15 167/103 98 MDM Supervised Visit with DEAN: Olive Bang Jan 05, 2017 14:00
--- NOTE | 2017-01-05 18:37 | PD ---
HPI Chief Complaint: Skin Problem Time Seen by Provider: 17:48 Travel History International Travel<30 days: No Contact w/Intl Traveler<30days: No Traveled to known affect area: No History of Present Illness HPI 36yo F with PMH of HTN, B/L lower ext lymphedema presents to the ED with c/o bump in left breast yesterday. Pt also with sharp pain in her left breast for a few days. +Chills but denies any fever, sob, n/v, abdominal pain. Pt with dark, black diarrhea for a few days. Pt was admitted 11/16/16-12/20/16 for necrotizing fasciitis of left axilla, chest and back. Pt had operative debridement by Dr. Lainez and has wound vac. PFSH Past Medical History Arthritis: Yes Asthma: No Autoimmune Disease: No Blood Disorders: No Anxiety: No Depression: No Heart Rhythm Problems: No Cancer: No Cardiovascular Problems: No High Cholesterol: No Chemotherapy: No Chest Pain: No Congestive Heart Failure: No COPD: No Endocrine: No Genitourinary: No Hypertension: Yes Immune Disorder: No Musculoskeletal: Yes Neurologic: No Psychiatric: No Reproductive: No Respiratory: No Integumentary: Yes (chronic lymphedema) Radiation Therapy: No Sleep Apnea: No ?: Not LMP: 2013 : 0 Ovarian Cysts: Yes (bilateral ) Social History Alcohol Use: Yes (weekly ) Tobacco Use: Yes (1-2 cigarettes a day) Substance Use: No Allergies-Medications (Allergen,Severity, Reaction): Coded Allergies: No Known Allergies (Unverified , 01/05/17) Reported Meds & Prescriptions Reported Meds & Active Scripts Active Norvasc (Amlodipine Besylate) 5 Mg Tab 2.5 Mg PO DAILY 30 Days Metoprolol Tartrate 25 Mg Tab 50 Mg PO BID 30 Days Hydralazine (Hydralazine HCl) 25 Mg Tab 25 Mg PO Q12HR Walker with Front Wheels (Device) 1 Mis Mis 1 Ea .ROUTE DIRECTED bariatric front wheeled walker 3-in-1 Bedside Toilet (Device) 1 Mis Mis 1 Ea .ROUTE DIRECTED bariatric 3 in 1 bedisde commode Reported Tylenol Pm Extra Strength (Diphenhydramine-Acetaminophen) 25-500 Mg Tab 2 Tab PO HS Review of Systems Except as stated in HPI: all other systems reviewed are Neg Physical Exam Narrative GENERAL: 36yo F not in distress. SKIN: Left breast: +2cm by 2cm abscess 6 o'clock with fluctuance. +Purulent discharge expressed. No crepitus. Left axilla: drain attach to wound vac. HEAD: Atraumatic. Normocephalic. NECK: Trachea midline. No JVD. CARDIOVASCULAR: Regular rate and rhythm. No murmur appreciated. RESPIRATORY: No accessory muscle use. Clear to auscultation. Breath sounds equal bilaterally. GASTROINTESTINAL: Abdomen soft, non-tender, nondistended. RECTAL: Positive black stool. +Hemaprompt. MUSCULOSKELETAL: No obvious deformities. No clubbing. No cyanosis. +Bilateral edema, right more than left. NEUROLOGICAL: Awake and alert. No obvious cranial nerve deficits. Motor grossly within normal limits. Normal speech. PSYCHIATRIC: Appropriate mood and affect; insight and judgment normal. Data Data Last Documented VS Vital Signs Date Time Temp Pulse Resp B/P Pulse Ox O2 Delivery O2 Flow Rate FiO2 01/05/17 13:41 98.8 103 15 167/103 98 Orders Complete Blood Count With Diff (01/05/17 18:08) Basic Metabolic Panel (Bmp) (01/05/17 18:08) Lactic Acid Sepsis Protocol (01/05/17 18:09) Blood Culture (01/05/17 18:09) Wound Culture And Gram Stain (01/05/17 18:56) Type And Screen (01/05/17 19:03) Pantoprazole Inj (Protonix Inj) (01/05/17 19:15) Pantoprazole Inj (Protonix Inj) (01/05/17 19:15) Morphine Inj (Morphine Inj) (01/05/17 19:15) Vancomycin Inj (Vancomycin Inj) (01/05/17 19:30) Piperacil-Tazo 3.375 Gm Premix (Zosyn 3. (01/05/17 19:30) Sodium Chlor 0.9% 1000 Ml Inj (Ns 1000 M (01/05/17 19:30) Potassium Chloride (Kcl) (01/05/17 19:45) Potassium Chlor 20 Meq Premix (Kcl 20 Me (01/05/17 19:45) Admit Order (Ed Use Only) (01/05/17 20:05) Labs Laboratory Tests Test 01/05/17 01/05/17 18:22 19:35 White Blood Count 24.3 TH/MM3 Red Blood Count 3.93 MIL/MM3 Hemoglobin 11.0 GM/DL Hematocrit 33.7 % Mean Corpuscular Volume 85.8 FL Mean Corpuscular Hemoglobin 27.9 PG Mean Corpuscular Hemoglobin 32.5 % Concent Red Cell Distribution Width 17.3 % Platelet Count 474 TH/MM3 Mean Platelet Volume 6.7 FL Neutrophils (%) (Auto) 84.9 % Lymphocytes (%) (Auto) 8.9 % Monocytes (%) (Auto) 5.4 % Eosinophils (%) (Auto) 0.5 % Basophils (%) (Auto) 0.3 % Neutrophils # (Auto) 20.6 TH/MM3 Lymphocytes # (Auto) 2.2 TH/MM3 Monocytes # (Auto) 1.3 TH/MM3 Eosinophils # (Auto) 0.1 TH/MM3 Basophils # (Auto) 0.1 TH/MM3 CBC Comment AUTO DIFF Differential Total Cells 100 Counted Neutrophils % (Manual) 77 % Band Neutrophils % 11 % Lymphocytes % 7 % Monocytes % 3 % Basophils % 1 % Neutrophils # (Manual) 21.6 TH/MM3 Metamyelocytes 1 % Differential Comment FINAL DIFF MANUAL Toxic Granulation 1+ Platelet Estimate HIGH Platelet Morphology Comment NORMAL Sodium Level 142 MEQ/L Potassium Level 2.5 MEQ/L Chloride Level 107 MEQ/L Carbon Dioxide Level 23.6 MEQ/L Anion Gap 11 MEQ/L Blood Urea Nitrogen 9 MG/DL Creatinine 0.90 MG/DL Estimat Glomerular Filtration 86 ML/MIN Rate Random Glucose 85 MG/DL Lactic Acid Level 1.6 mmol/L Calcium Level 8.6 MG/DL Blood Type O POSITIVE Antibody Screen NEGATIVE Blood Bank Comment [facility] Medical Decision Making Medical Screen Exam Complete: Yes Emergency Medical Condition: Yes Differential Diagnosis Abscess vs. cellulitis vs. lower GI bleed Narrative Course 36yo F with recent prolong hospital course for necrotizing fasciitis here with sharp pain in left breast. Pt has small abscess in left breast that is already draining, with purulent discharged expressed. Wound culture taken and sent. Pt has no abdominal pain but complains of dark diarrhea. Pt did take peptol bismol but hemaprompt is positive so started pt on protonix. Pt is nontoxic appearing but given history, will obtain labs and blood culture. Sign out to next team to follow up. HemaPrompt Point of Care Internal Pos. & Neg. Controls: Passed Fecal Specimen Occult Blood: Positive Diagnosis Primary Impression: Left breast abscess Admitting Information Admitting Physician Requests: it Priscila Sousa DO Jan 05, 2017 18:37
[2017-01-05 18:57] LABS: AUTOMATED NEUTROPHIL # 20.6 TH/MM3 (1.8-7.7); BASOPHIL # 0.1 TH/MM3 (0-0.2); BASOPHIL % 0.3 % (0.0-2.0); EOSINOPHIL # 0.1 TH/MM3 (0-0.4); EOSINOPHIL % 0.5 % (0.0-4.0); HEMATOCRIT 33.7 % (35.0-46.0); LYMPH % 8.9 % (9.0-44.0); LYMPHOCYTE # 2.2 TH/MM3 (1.0-4.8); MEAN CELL VOLUME 85.8 FL (80.0-100.0); MEAN CORPUSCULAR HEMOGLOBIN 27.9 PG (27.0-34.0); MEAN CORPUSCULAR HGB CONC 32.5 % (32.0-36.0); MONO % 5.4 % (0.0-8.0); NEUT % 84.9 % (16.0-70.0); PLATELET COUNT 474 TH/MM3 (150-450); RED BLOOD COUNT 3.93 MIL/MM3 (4.00-5.30); RED CELL DISTRIBUTION WIDTH 17.3 % (11.6-17.2); WHITE BLOOD COUNT 24.3 TH/MM3 (4.0-11.0)
[2017-01-05 19:01] LABS: HEMO FLAGS AUTO DIFF
[2017-01-05] MEDS ORDERED: MORPHINE SULFATE 4 MG/ML INJ IV PUSH ONE (19:15)
[2017-01-05] MEDS ORDERED: PANTOPRAZOLE INJ 80 MG in SODIUM CHLORIDE 0.9% INJ 35 ML IV ONE (19:15)
[2017-01-05] MEDS ORDERED: PANTOPRAZOLE INJ 80 MG in SODIUM CHLORIDE 0.9% INJ 100 ML IV SCH (19:15)
--- NOTE | 2017-01-05 19:16 | PD ---
Physical Exam Narrative Patient was seen by ED physician and signed out to me. Data Data Last Documented VS Vital Signs Date Time Temp Pulse Resp B/P Pulse Ox O2 Delivery O2 Flow Rate FiO2 01/05/17 13:41 98.8 103 15 167/103 98 Orders Complete Blood Count With Diff (01/05/17 18:08) Basic Metabolic Panel (Bmp) (01/05/17 18:08) Lactic Acid Sepsis Protocol (01/05/17 18:09) Blood Culture (01/05/17 18:09) Wound Culture And Gram Stain (01/05/17 18:56) Type And Screen (01/05/17 19:03) Pantoprazole Inj (Protonix Inj) (01/05/17 19:15) Pantoprazole Inj (Protonix Inj) (01/05/17 19:15) Morphine Inj (Morphine Inj) (01/05/17 19:15) Vancomycin Inj (Vancomycin Inj) (01/05/17 19:30) Piperacil-Tazo 3.375 Gm Premix (Zosyn 3. (01/05/17 19:30) Sodium Chlor 0.9% 1000 Ml Inj (Ns 1000 M (01/05/17 19:30) Potassium Chloride (Kcl) (01/05/17 19:45) Potassium Chlor 20 Meq Premix (Kcl 20 Me (01/05/17 19:45) Admit Order (Ed Use Only) (01/05/17 20:05) Vascular Access Team Consult/P PRN (01/05/17 20:08) Vancomycin Consult Pharmacy (Vancomycin (01/05/17 20:15) Cefepime Inj (Maxipime Inj) (01/13/17 09:00) Consult General Surgery (01/05/17 ) Consult Infectious Disease (01/05/17 ) Admit To Inpatient (01/05/17 ) Vital Signs (Adult) Q4H (01/05/17 20:09) Activity Oob Ad Dolores (01/05/17 20:09) Intake + Output MEENAKSHI.QSHIFT (01/05/17 20:09) Diet Regular Basic (01/06/17 Breakfast) Sodium Chlor 0.9% 1000 Ml Inj (Ns 1000 M (01/05/17 20:09) Sodium Chloride 0.9% Flush (Ns Flush) (01/05/17 20:15) Sodium Chloride 0.9% Flush (Ns Flush) (01/05/17 21:00) Ondansetron Inj (Zofran Inj) (01/05/17 20:15) Bisacodyl Supp (Dulcolax Supp) (01/05/17 20:15) Comprehensive Metabolic Panel (01/06/17 06:00) Complete Blood Count With Diff (01/06/17 06:00) Scd Bilateral/Knee High MEENAKSHI.BID (01/05/17 20:09) Nicholas Bilateral/Knee High MEENAKSHI.QSHIFT (01/05/17 20:09) Acetaminophen (Tylenol) (01/05/17 20:15) Acetamin-Hydrocod 325-5 Mg ([place] 5-325 (01/05/17 20:15) Morphine Inj (Morphine Inj) (01/05/17 20:15) Inpatient Certification (01/05/17 ) Amlodipine (Norvasc) (01/06/17 09:00) Hydralazine (Apresoline) (01/05/17 21:00) Metoprolol Tartrate (Lopressor) (01/05/17 21:00) Labs Laboratory Tests Test 01/05/17 18:22 White Blood Count 24.3 TH/MM3 Red Blood Count 3.93 MIL/MM3 Hemoglobin 11.0 GM/DL Hematocrit 33.7 % Mean Corpuscular Volume 85.8 FL Mean Corpuscular Hemoglobin 27.9 PG Mean Corpuscular Hemoglobin 32.5 % Concent Red Cell Distribution Width 17.3 % Platelet Count 474 TH/MM3 Mean Platelet Volume 6.7 FL Neutrophils (%) (Auto) 84.9 % Lymphocytes (%) (Auto) 8.9 % Monocytes (%) (Auto) 5.4 % Eosinophils (%) (Auto) 0.5 % Basophils (%) (Auto) 0.3 % Neutrophils # (Auto) 20.6 TH/MM3 Lymphocytes # (Auto) 2.2 TH/MM3 Monocytes # (Auto) 1.3 TH/MM3 Eosinophils # (Auto) 0.1 TH/MM3 Basophils # (Auto) 0.1 TH/MM3 CBC Comment AUTO DIFF Sodium Level 142 MEQ/L Potassium Level 2.5 MEQ/L Chloride Level 107 MEQ/L Carbon Dioxide Level 23.6 MEQ/L Anion Gap 11 MEQ/L Blood Urea Nitrogen 9 MG/DL Creatinine 0.90 MG/DL Estimat Glomerular Filtration 86 ML/MIN Rate Random Glucose 85 MG/DL Lactic Acid Level 1.6 mmol/L Calcium Level 8.6 MG/DL [facility] Supervised Visit with DEAN: No Interpretation(s) 1947 PM. CBC WBC 24.3. Hemoglobin 11.0 hematocrit 33.7. Platelet 474. 84 neutrophil. Potassium 2.5. Lactic acid 1.6. Narrative Course Patient was seen by ED physician and signed out to me. Vancomycin 1 g IV given. Zosyn 3.375 g IV given. KCl 40 mEq by mouth given. KCl 20 mEq IV given. Diagnosis Primary Impression: Left breast abscess Additional Impressions: Cellulitis of left breast Hypokalemia Eleazar Bolton MD Jan 05, 2017 19:16
[2017-01-05 19:24] LABS: BICARBONATE 23.6 MEQ/L (21.0-32.0)
[2017-01-05] MEDS ORDERED: SODIUM CHLOR 0.9% 1000 ML INJ 1,000 ML IV SCH (19:30)
[2017-01-05] MEDS ORDERED: PIPERACIL-TAZO 3.375 GM PREMIX 50 ML IV ONE (19:30)
[2017-01-05] MEDS ORDERED: VANCOMYCIN INJ 1,000 MG in SODIUM CHLOR 0.9% 250 ML INJ 250 ML IV ONE (19:30)
[2017-01-05 19:37] LABS: POTASSIUM 2.5 MEQ/L (3.5-5.1)
[2017-01-05] MEDS ORDERED: POTASSIUM CHLOR 20 MEQ PREMIX 100 ML IV ONE (19:45)
[2017-01-05] MEDS ORDERED: POTASSIUM CHLORIDE 20 MEQ CONTROLLED RELEASE TAB PO ONE (19:45)
[2017-01-05 20:14] LABS: BANDS 11 % (0-6); BASOPHILS 1 % (0-2); METAMYELOCYTES 1 % (0-1); NEUTROPHIL # MANUAL DIFF 21.6 TH/MM3 (1.8-7.7); PLATELET ESTIMATE SMEAR HIGH (NORMAL); PLATELET MORPHOLOGY NORMAL (NORMAL); POLYS (SEG NEUTROPHILS) 77 % (16-70); SCAN/DIFF FINAL DIFF MANUAL; WBC DIFF SAMPLE 100
[2017-01-05 20:15] LABS: TOXIC GRANULATION 1+ (NORMAL)
[2017-01-05] MEDS ORDERED: SODIUM CHLORIDE 0.9% FLUSH 10 ML FLUSH IV FLUSH PRN (20:15)
[2017-01-05] MEDS ORDERED: BISACODYL 10 MG SUPP RECTAL PRN (20:15)
[2017-01-05] MEDS ORDERED: Vancomycin Consult Pharmacy 1 EA OTHER SCH (20:15)
[2017-01-05] MEDS ORDERED: PILL SPLITTER OTHER PRN (20:30)
--- NOTE | 2017-01-05 20:30 | HHI.HP ---
HPI Service [facility] Primary Care Physician Jimmie Gutierrez Admission Diagnosis left breast abscess. Left breast cellulitis. Diagnoses: (1) Sepsis Diagnosis: Principal (2) Left breast abscess Diagnosis: Principal (3) Hypokalemia Diagnosis: Principal (4) Diarrhea Diagnosis: Principal (5) Necrotizing fasciitis Diagnosis: Principal (6) Lymphedema Diagnosis: Principal (7) HTN (hypertension) Diagnosis: Principal (8) Morbid obesity Diagnosis: Principal Travel History International Travel<30 Days: No Contact w/Intl Traveler <30 Da: No Traveled to Known Affected Are: No History of Present Illness This is a 36-year-old female with a PMH of Morbid Obesity, HTN, Chronic Lymphedema, Tobacco Abuse and h/o Necrotizing Fasciitis to Left Chest Wall who presented to the ER at the suggestion of [facility] RN for evaluation of left breast abscess. Pt w/ previous admit 11/16-12/20/16 for Sepsis and Left Axillary/Chest Necrotizing Fasciitis s/p emergent surgical intervention by Dr. Lainez on 11/16/16 s/p VAC and completed IV Abx by ID. States she was seen by Dr. Lainez in office last week, no issues at that time. Today, [facility] RN noted left breast abscess w/ purulent drainage. Denies fever or chills. Does note epigastric pain and diarrhea which has been ongoing x2 wks, states diarrhea occurs only after eating. Reports dark colored stool, but states she's been taking Pepto for her abdominal pain. Hemoccult + in ER, started on Protonix gtt. on arrival, BP 167 /103, HR 103, O2 sat 98% on RA, Afebrile. WBC 24.3. K+ 2.5, s/p replacement in ER. S/p Blood Cultures, Vanc/Zosyn. Review of Systems Except as stated in HPI: all other systems reviewed are Neg ROS: 14 point review of systems otherwise negative. Past Family Social History Past Medical History PMH: Morbid Obesity, HTN, Chronic Lymphedema, Tobacco Abuse and h/o Necrotizing Fasciitis to Left Chest Wall Past Surgical History PAST SURGICAL HISTORY: Left Chest Debridement with VAC 4/1/17 Allergies: Coded Allergies: No Known Allergies (Unverified , 01/05/17) Family History PAST FAMILY HISTORY: Reviewed. No h/o DM or CAD Social History PAST SOCIAL HISTORY: Negative for alcohol or drugs. Smokes 1-2 cigarettes a day. Physical Exam Vital Signs Vital Signs Date Time Temp Pulse Resp B/P Pulse Ox O2 Delivery O2 Flow Rate FiO2 01/05/17 13:41 98.8 103 15 167/103 98 Physical Exam PE: GENERAL: Very pleasant middle-aged black female in no acute distress. Morbidly obese. HEENT: PERRLA, EOMI. No scleral icterus or conjunctival pallor. No lid lag or facial droop. CARDIOVASCULAR: Regular rate and rhythm. No obvious murmurs to auscultation. No chest tenderness to palpation. Left Axilla w/ wound VAC in place, small abscess 6 o'clock position of left breast w/ scant purulent drainage. RESPIRATORY: No obvious rhonchi or wheezing. Clear to auscultation. Breath sounds equal bilaterally. GASTROINTESTINAL: Abdomen soft, non-tender, nondistended. BS normal. MUSCULOSKELETAL: Extremities without clubbing, cyanosis. Significant bilateral lymphedema, right greater than left, no erythema noted. No obvious deformities. NEUROLOGICAL: Awake, alert and oriented x4. No focal neurologic deficits. Moving both upper and lower extremities spontaneously. Laboratory Laboratory Tests Test 01/05/17 18:22 White Blood Count 24.3 Red Blood Count 3.93 Hemoglobin 11.0 Hematocrit 33.7 Mean Corpuscular Volume 85.8 Mean Corpuscular Hemoglobin 27.9 Mean Corpuscular Hemoglobin 32.5 Concent Red Cell Distribution Width 17.3 Platelet Count 474 Mean Platelet Volume 6.7 Neutrophils (%) (Auto) 84.9 Lymphocytes (%) (Auto) 8.9 Monocytes (%) (Auto) 5.4 Eosinophils (%) (Auto) 0.5 Basophils (%) (Auto) 0.3 Neutrophils # (Auto) 20.6 Lymphocytes # (Auto) 2.2 Monocytes # (Auto) 1.3 Eosinophils # (Auto) 0.1 Basophils # (Auto) 0.1 CBC Comment AUTO DIFF Differential Total Cells 100 Counted Neutrophils % (Manual) 77 Band Neutrophils % 11 Lymphocytes % 7 Monocytes % 3 Basophils % 1 Neutrophils # (Manual) 21.6 Metamyelocytes 1 Differential Comment FINAL DIFF MANUAL Toxic Granulation 1+ Platelet Estimate HIGH Platelet Morphology Comment NORMAL Sodium Level 142 Potassium Level 2.5 Chloride Level 107 Carbon Dioxide Level 23.6 Anion Gap 11 Blood Urea Nitrogen 9 Creatinine 0.90 Estimat Glomerular Filtration 86 Rate Random Glucose 85 Lactic Acid Level 1.6 Calcium Level 8.6 Date/Time Procedure Status Source Growth 01/05/17 19:10 Gram Stain Received Wound Breast Pending 01/05/17 19:10 Wound Culture Received Wound Breast Pending 01/05/17 18:45 Aerobic Blood Culture Received Blood Peripheral Pending 01/05/17 18:45 Anaerobic Blood Culture Received Blood Peripheral Pending Result Diagram: 01/05/17 1822 01/05/17 182 Assessment and Plan Problem List: (1) Sepsis ICD Code: A41.9 Status: Acute (2) Left breast abscess ICD Code: N61.1 Status: Acute (3) Hypokalemia ICD Code: E87.6 Status: Acute (4) Diarrhea ICD Code: R19.7 Status: Acute (5) Necrotizing fasciitis ICD Code: M72.6 Status: Acute (6) Lymphedema ICD Code: I89.0 Status: Acute (7) HTN (hypertension) ICD Code: I10 Status: Acute (8) Morbid obesity ICD Code: E66.01 Status: Acute Assessment and Plan A/P: 1. Sepsis: HR 103, WBC 24, Source-Left Breast Abscess, s/p Wound/Blood Cultures, Vanc/Zosyn in ER. Will follow up cultures, continue IV Abx, monitor. 2. Left Breast Abscess: small abscess at 6 o'clock position of left breast w/ scant purulent drainage, noted by [facility] RN. Afebrile. Continue w/ IV Abx as above. S/p eval by ID on last admit for Necrotizing Fasciitis, will consult for evaluation. 3. Necrotizing Fasciitis: Recent admit 11/16-12/20/16 for Sepsis/Nec Fasc to Left Axilla/Chest Wall s/p emergent debridement by Dr. Lainez w/ placement of Wound VAC, currently on [facility]. Following w/ Dr. Lainez as outpatient, last visit w/ no complications, next visit 01/10/17. Will consult for further eval. Consult Wound Management for assistance w/ Wound Vac. 4. Diarrhea: reports ongoing diarrhea after eating, ?malabsorption, symptoms x2 wks since discharge from hospital, +occasional cramping abdominal pain. Check stool for C. Diff. Check CT Abd/Pelvis if symptoms persist. +Hemoccult positive in ER, possibly due to diarrhea/colitis. Started on Protonix gtt in ER , will continue w/ Protonix IV. Hgb stable. 5. Lymphedema: Chronic. RLE w/ increased swelling. Previously on Lasix, will resume. Monitor renal function. Wound Consult for Lymphedema Wraps. 6. Hypokalemia: K+ 2.5, s/p replacement in ER, will recheck and replace as needed. 7. HTN: BP 160's on arrival, will resume home medications. Monitor BP. 8. Morbid Obesity: Chronic. Limited mobility due to body habitus, PT as needed. 9. DVT Prophylaxis: Mechanical contraindication secondary to severe LE edema. Pharmacologic contraindication secondary to Hemoccult +, high risk for bleeding. Will monitor 10. Social work for d/c planning as needed. 11. Case discussed w/ ER physician at length Physician Certification 2 Midnight Certification Type: Admission for Inpatient Services Order for Inpatient Services The services are ordered in accordance with Medicare regulations or non- Medicare payer requirements, as applicable. In the case of services not specified as inpatient-only, they are appropriately provided as inpatient services in accordance with the 2-midnight benchmark. Estimated LOS (days): 2 days is the estimated time the patient will need to remain in the hospital, assuming treatment plan goals are met and no additional complications. Post-Hospital Plan: Not yet determined Malia Pastrana MD Jan 05, 2017 20:29
[2017-01-05] MEDS ORDERED: FUROSEMIDE 20 MG/2 ML VIAL IV PUSH ONE (20:45)
[2017-01-05] MEDS: SODIUM CHLORIDE 0.9% FLUSH 10 ML FLUSH IV FLUSH SCH (20:51)
[2017-01-05] MEDS ORDERED: VANCOMYCIN 1,000 MG/NS 250 ML IV ONE ×2 (21:00)
[2017-01-05] MEDS ORDERED: METOPROLOL TARTRATE 25 MG TAB PO SCH (21:00)
[2017-01-05] MEDS: hydrALAZINE HCL 25 MG TAB PO SCH (21:21)
[2017-01-05] MEDS: METOPROLOL TARTRATE 50 MG TAB PO SCH (21:21)
[2017-01-05] MEDS: SODIUM CHLOR 0.9% 1000 ML INJ 1,000 ML IV SCH (21:22)
--- NOTE | 2017-01-05 22:59 | RADRPT ---
EXAM DATE/TIME: 01/05/2017 22:37 [facility] COMPARISON: CHEST SINGLE AP, July 22, 2015, 18:22. CHEST SINGLE AP, November 23, 2016, 4:13. INDICATIONS : Shortness of breath and midline chest pain since surgery to remove left side infected boil in armpit area in November 2016. MEDICAL HISTORY : Hypertension. Arthritis. Bilateral ovarian cysts. Chroic lymphedema. Morbid SURGICAL HISTORY : Removal of infected boil in left armpit. ENCOUNTER: Initial ACUITY: 1 month PAIN SCORE: 7/10 LOCATION: Bilateral chest FINDINGS: A single portable frontal view of the chest shows a focal area of increased density at the right card iophrenic angle. The remaining lungs are clear. The heart is mildly enlarged. No pulmonary vascular e ngorgement observed. No effusions. Bony structures are unremarkable. CONCLUSION: 1. Focal consolidation within the right medial lung base. Infiltrate versus rounded atelectasis. Foll owup study suggested to document resolution. 2. Cardiomegaly. Kulwinder Chaudhary Jr., MD on January 05, 2017 at 22:55 Board Certified Radiologist. This report was verified electronically.
[2017-01-06] VITALS: BP 141/97; PULSE 86; RESP 24; TEMP 98.7; O2SAT 97
[2017-01-06] MEDS: ACETAMINOPHEN/HYDROcodone 325 MG/5 MG TAB PO PRN ×3 (00:09→21:33)
[2017-01-06 04:00] VITALS: BP 120/73; PULSE 93; RESP 22; TEMP 97.8; O2SAT 98
[2017-01-06] MEDS: SODIUM CHLOR 0.9% 1000 ML INJ 1,000 ML IV SCH ×2 (07:00→17:00)
[2017-01-06 08:00] VITALS: BP 139/92; PULSE 100; RESP 20; TEMP 97.7; O2SAT 96
[2017-01-06] MEDS: hydrALAZINE HCL 25 MG TAB PO SCH ×2 (08:03→21:33)
[2017-01-06] MEDS: amLODIPine BESYLATE 5 MG TAB PO SCH (08:03)
[2017-01-06] MEDS: METOPROLOL TARTRATE 50 MG TAB PO SCH ×2 (08:03→21:33)
[2017-01-06] MEDS: VANCOMYCIN INJ 2,000 MG in SODIUM CHLORID 0.9% 500 ML INJ 500 ML IV SCH ×2 (08:04→22:39)
[2017-01-06] MEDS: SODIUM CHLORIDE 0.9% FLUSH 10 ML FLUSH IV FLUSH SCH ×2 (08:04→21:00)
[2017-01-06] MEDS ORDERED: LIDOCAINE 1%/EPINEPHrine 1:100,000 SOLN 20 ML VIAL ONE (09:20)
[2017-01-06] MEDS: SODIUM BICARBONATE 8.4% INJ 50 ML ONE (09:36)
[2017-01-06] MEDS: LIDOCAINE 1%/EPINEPHrine 1:100,000 SOLN 20 ML VIAL ONE (09:36)
[2017-01-06 09:43] LABS: AUTOMATED NEUTROPHIL # 19.1 TH/MM3 (1.8-7.7); BASOPHIL # 0.1 TH/MM3 (0-0.2); BASOPHIL % 0.3 % (0.0-2.0); EOSINOPHIL # 0.1 TH/MM3 (0-0.4); EOSINOPHIL % 0.6 % (0.0-4.0); LYMPH % 7.9 % (9.0-44.0); LYMPHOCYTE # 1.7 TH/MM3 (1.0-4.8); MEAN CORPUSCULAR HEMOGLOBIN 27.7 PG (27.0-34.0); MEAN CORPUSCULAR HGB CONC 32.2 % (32.0-36.0); NEUT % 86.2 % (16.0-70.0); PLATELET COUNT 421 TH/MM3 (150-450); RED BLOOD COUNT 3.61 MIL/MM3 (4.00-5.30); RED CELL DISTRIBUTION WIDTH 17.1 % (11.6-17.2); WHITE BLOOD COUNT 22.2 TH/MM3 (4.0-11.0)
[2017-01-06 09:44] LABS: HEMO FLAGS AUTO DIFF
[2017-01-06 10:14] LABS: ALKALINE PHOSPHATASE 146 U/L (45-117); ALT (GPT) 28 U/L (10-53); ANION GAP 9 MEQ/L (5-15); AST (GOT) 10 U/L (15-37); BICARBONATE 25.4 MEQ/L (21.0-32.0); BLOOD UREA NITROGEN 6 MG/DL (7-18); CHLORIDE 110 MEQ/L (98-107); GLOMERULAR FILTRATION RATE 94 ML/MIN (>89); POTASSIUM 3.1 MEQ/L (3.5-5.1); SODIUM (NA) 144 MEQ/L (136-145); TOTAL BILIRUBIN ADULT 0.3 MG/DL (0.2-1.0)
[2017-01-06 10:23] LABS: BANDS 3 % (0-6); BASOPHILS 1 % (0-2); EOSINOPHILS 1 % (0-4); MYELOCYTES 3 % (0-0); NEUTROPHIL # MANUAL DIFF 18.6 TH/MM3 (1.8-7.7); PLATELET ESTIMATE SMEAR NORMAL (NORMAL); PLATELET MORPHOLOGY NORMAL (NORMAL); POLYS (SEG NEUTROPHILS) 78 % (16-70); SCAN/DIFF FINAL DIFF MANUAL; WBC DIFF SAMPLE 100
--- NOTE | 2017-01-06 11:31 | HHI.PR ---
Immediate Post Op Note Procedure Date: Jan 06, 2017 Pre Op Diagnosis: left breast abscess Post Op Diagnosis: same Surgeon: Rubin Mayes MD Cane Cutter(s): see or sheet Procedure: I and D with vac change and replacement of left breast Findings: purulent drainage Complications: none Specimen(s) removed: pus Estimated blood loss: 5cc Anesthesia: General Drains: Hemovac Patient to: PACU Patient Condition: Good Rubin Mayes MD Jan 06, 2017 11:31
[2017-01-06] MEDS: *MEPERIDINE 25 MG INJ VIAL PERIprocedural Use ONLY ONE (12:34)
[2017-01-06] MEDS ORDERED: PROPOFOL 200 MG/20 ML AMP IV ONE (12:38)
[2017-01-06] MEDS ORDERED: NEOSTIGMINE 3 MG/3 ML SYR IV ONE (12:38)
[2017-01-06] MEDS ORDERED: ONDANSETRON HCL 4 MG/2 ML VIAL IV PUSH ONE (12:38)
[2017-01-06] MEDS ORDERED: ePHEDrine/NS 25 MG/5 ML SYR IV ONE (12:38)
--- NOTE | 2017-01-06 12:46 | PD.ID.CON ---
History of Present Illness Service ID Consult Requested By Dr Pastrana Reason for Consult L breast abscess Primary Care Physician Jimmie Gutierrez Diagnoses: History of Present Illness 36 yo morbidly obese female known to me from revent hospitalisation for L axilla nec fasc with sepsis/ septic shock for which she had prolonger hospitalisation, multiple debridements and abx treatment She had aerobic/anaerobic mixed everett Pt noted a tender lump in L breast in the last day and presented with it from home sp I+D today She also co diarrhea She had diarrhea on previous admission and tested negatvive for C.diff Clx P Gstain + GPC also co diarrhea She is not having fever but presented with significant leukocytosis > 20 K Review of Systems Except as stated in HPI: all other systems reviewed are Neg Past Family Social History Allergies: Coded Allergies: No Known Allergies (Unverified , 01/05/17) Past Medical History Hypertension Ovarian cyst Chronic pain Morbid obesity Past Surgical History none prior to this admission Active Ordered Medications Medications where reviewed in EMR Antibiotics Include: vancomycin, zosyn Family History Reported Medications Trazodone 50 mg by mouth daily at bedtime Diphenhydramine/acetaminophen 25/502 tabs by mouth daily at bedtime when necessary sleep Metoprolol 25 mill grams by mouth twice a day for tachycardia Mother has diabetes Social History smoker. Ddrinks alcohol on the weekends. She reported history of marijuana use. Past Surgical History multiple L axilla debridement s Active Ordered Medications Medications where reviewed in EMR Antibiotics Include: cefepime vancomycin Family History Mother has diabetes Social History smoker. drinks alcohol on the weekends. She reported history of marijuana use. Physical Exam Vital Signs Vital Signs Date Time Temp Pulse Resp B/P Pulse Ox O2 Delivery O2 Flow Rate FiO2 01/06/17 08:00 97.7 100 20 139/92 96 01/06/17 04:00 97.8 93 22 120/73 98 01/06/17 00:00 98.7 86 24 141/97 97 01/05/17 13:41 98.8 103 15 167/103 98 Physical Exam CONSTITUTIONAL/GENERAL: This is a morbidly obese patient, in no apparent distress. TUBES/LINES/DRAINS: SKIN: Large skin defect in L axilla area coverd by VAC wit serosag dc L brease appears midldy edematous and tender to aplpation , No erythema Ecchymoses on upper extremities. No wounds seen anteriorly. Skin temperature appropriate. Not diaphoretic. HEAD: Atraumatic. Normocephalic. EYES: Pupils equal and round and reactive. Extraocular motions intact. No scleral icterus. No injection or drainage. Fundi not examined. ENT: Hearing grossly normal. Nose without bleeding or purulent drainage. Throat without visible erythema, exudates, masses, or lesions. NECK: Trachea midline. Supple, nontender. No palpable thyroid enlargement or nodularity. CARDIOVASCULAR: Regular rate and rhythm without murmurs, gallops, or rubs. No JVD. Peripheral pulses symmetric. RESPIRATORY/CHEST: Symmetric, unlabored respirations. Clear to auscultation. Breath sounds equal bilaterally. No wheezes, rales, or rhonchi. GASTROINTESTINAL: Abdomen soft, non-tender, nondistended. No hepato-splenomegaly , or palpable masses. No guarding. Bowel sounds present. GENITOURINARY: Without palpable bladder distension. MUSCULOSKELETAL: Extremities without clubbing, cyanosis, or edema. No joint tenderness or effusion noted. No calf tenderness. No mottling or clubbing. LYMPHATICS: No palpable cervical or supraclavicular adenopathy. NEUROLOGICAL: Awake and alert. Motor and sensory grossly within normal limits. Follows commands. Cognitively sharp. Moves all extremities. PSYCHIATRIC: No obvious anxiety/depression. no apparent hallucinations or other psychotic thought process. Laboratory GRAM STAIN Final 01/06/17-1037 MODERATE WBC'S RARE EPITHELIAL CELL MUCUS MODERATE MIXED [place] WITH NO PREDOMINANT MORPHOLOGY Laboratory Tests Test 01/05/17 01/05/17 01/06/17 18:22 19:35 09:14 White Blood Count 24.3 22.2 Red Blood Count 3.93 3.61 Hemoglobin 11.0 10.0 Hematocrit 33.7 31.0 Mean Corpuscular Volume 85.8 86.0 Mean Corpuscular Hemoglobin 27.9 27.7 Mean Corpuscular Hemoglobin 32.5 32.2 Concent Red Cell Distribution Width 17.3 17.1 Platelet Count 474 421 Mean Platelet Volume 6.7 6.5 Neutrophils (%) (Auto) 84.9 86.2 Lymphocytes (%) (Auto) 8.9 7.9 Monocytes (%) (Auto) 5.4 5.0 Eosinophils (%) (Auto) 0.5 0.6 Basophils (%) (Auto) 0.3 0.3 Neutrophils # (Auto) 20.6 19.1 Lymphocytes # (Auto) 2.2 1.7 Monocytes # (Auto) 1.3 1.1 Eosinophils # (Auto) 0.1 0.1 Basophils # (Auto) 0.1 0.1 CBC Comment AUTO DIFF AUTO DIFF Differential Total Cells 100 100 Counted Neutrophils % (Manual) 77 78 Band Neutrophils % 11 3 Lymphocytes % 7 7 Monocytes % 3 7 Basophils % 1 1 Neutrophils # (Manual) 21.6 18.6 Metamyelocytes 1 Differential Comment FINAL DIFF FINAL DIFF MANUAL MANUAL Toxic Granulation 1+ Platelet Estimate HIGH NORMAL Platelet Morphology Comment NORMAL NORMAL Sodium Level 142 144 Potassium Level 2.5 3.1 Chloride Level 107 110 Carbon Dioxide Level 23.6 25.4 Anion Gap 11 9 Blood Urea Nitrogen 9 6 Creatinine 0.90 0.83 Estimat Glomerular Filtration 86 94 Rate Random Glucose 85 83 Lactic Acid Level 1.6 Calcium Level 8.6 8.2 Blood Type O POSITIVE Antibody Screen NEGATIVE Blood Bank Comment Eosinophils % 1 Myelocytes 3 Red Cell Morphology Comment NORMAL Total Bilirubin 0.3 Aspartate Amino Transf 10 (AST/SGOT) Alanine Aminotransferase 28 (ALT/SGPT) Alkaline Phosphatase 146 Total Protein 6.2 Albumin 2.5 Date/Time Procedure Status Source Growth 01/06/17 11:50 Gram Stain Received Abscess Breast Pending 01/06/17 11:50 Wound Culture Received Abscess Breast Pending 01/06/17 11:50 Fungal Smear Received Abscess Breast Pending 01/06/17 11:50 Fungal Culture Received Abscess Breast Pending 01/06/17 11:50 Acid Fast Stain Received Abscess Breast Pending 01/06/17 11:50 Mycobacterial Culture Received Abscess Breast Pending 01/05/17 19:10 Gram Stain - Final Resulted Wound Breast 01/05/17 19:10 Wound Culture Resulted Wound Breast Pending 01/05/17 18:45 Aerobic Blood Culture - Preliminary Resulted Blood Peripheral NO GROWTH IN 1 DAY 01/05/17 18:45 Anaerobic Blood Culture - Preliminary Resulted Blood Peripheral NO GROWTH IN 1 DAY Result Diagram: 01/06/17 0914 01/06/17 0914 Imaging Last Impressions Chest X-Ray 01/05/17 9835 Signed Impressions: Service Date/Time: December 22:37 - CONCLUSION: 1. Focal consolidation within the right medial lung base. Infiltrate versus rounded atelectasis. Followup study suggested to document resolution. 2. Cardiomegaly. Kulwinder Chaudhary Jr., MD Assessment and Plan Assessment and Plan Nec fas L axilla New abscess L breast Diarrhea with recent abx exposure C.diff + - hypervirulent 027 strain - cont vanco IV - dc cefepime - zosyn - fu P clx - po Rachel Finney MD Jan 06, 2017 12:46
--- NOTE | 2017-01-06 12:47 | HHI.PR ---
Subjective Remarks pain controlled left breast- wound VAC in place no fever or chills Objective Vitals Vital Signs Date Time Temp Pulse Resp B/P Pulse Ox O2 Delivery O2 Flow Rate FiO2 01/06/17 12:20 97.5 71 15 113/68 100 Nasal Cannula 3 01/06/17 08:00 97.7 100 20 139/92 96 01/06/17 04:00 97.8 93 22 120/73 98 01/06/17 00:00 98.7 86 24 141/97 97 01/05/17 13:41 98.8 103 15 167/103 98 I/O 01/05/17 01/05/17 01/05/17 01/06/17 01/06/17 01/06/17 07:00 15:00 23:00 07:00 15:00 23:00 Intake Total 615 ml Balance 615 ml Intake IV Total 615 ml # Voids 4 Result Diagram: 01/06/17 0914 01/06/17 0914 Imaging Last Impressions Chest X-Ray 01/05/172224 Signed Impressions: Service Date/Time: December 22:37 - CONCLUSION: 1. Focal consolidation within the right medial lung base. Infiltrate versus rounded atelectasis. Followup study suggested to document resolution. 2. Cardiomegaly. Kulwinder Chaudhary Jr., MD Objective Remarks awake and alert, NAD, obese anicteric lungs clear Left breast wall- underneath wound AVC in place regular rhythm abdomen- soft flabby extremities no edema neuro exam - non focal Procedures 01/06- I and D with WOund VAC application A/P Problem List: (1) Sepsis ICD Code: A41.9 Status: Acute (2) Left breast abscess ICD Code: N61.1 Status: Acute (3) Hypokalemia ICD Code: E87.6 Status: Acute (4) Diarrhea ICD Code: R19.7 Status: Acute (5) Necrotizing fasciitis ICD Code: M72.6 Status: Acute (6) Lymphedema ICD Code: I89.0 Status: Acute (7) HTN (hypertension) ICD Code: I10 Status: Acute (8) Morbid obesity ICD Code: E66.01 Status: Acute Assessment and Plan 1. Sepsis: source Left breast abscess S/P I and D. Continue w/ IV Abx as above. S/p eval by ID on last admit for Necrotizing Fasciitis, will consult for evaluation. 3. Necrotizing Fasciitis: Recent admit 11/16-12/20/16 for Sepsis/Nec Fasc to Left Axilla/Chest Wall s/p emergent debridement by Dr. Lainez w/ placement of Wound VAC, currently on [facility]. Following w/ Dr. Lainez as outpatient, last visit w/ no complications, next visit 01/10/17. Will consult for further eval. Consult Wound Management for assistance w/ Wound Vac. 4. Diarrhea: reports ongoing diarrhea after eating, ?malabsorption, symptoms x2 wks since discharge from hospital, +occasional cramping abdominal pain. Check stool for C. Diff. Check CT Abd/Pelvis if symptoms persist. +Hemoccult positive in ER, possibly due to diarrhea/colitis. Started on Protonix gtt in ER , will continue w/ Protonix IV. Hgb stable. 5. Lymphedema: Chronic. RLE w/ increased swelling. Previously on Lasix, will resume. Monitor renal function. Wound Consult for Lymphedema Wraps. 6. Hypokalemia: K+ 2.5, s/p replacement in ER, will recheck and replace as needed. 7. HTN: BP 160's on arrival, will resume home medications. Monitor BP. 8. Morbid Obesity: Chronic. Limited mobility due to body habitus, PT as needed. 9. DVT Prophylaxis: Mechanical contraindication secondary to severe LE edema. Pharmacologic contraindication secondary to Hemoccult +, high risk for bleeding. Will monitor 10. Social work for d/c planning as needed. 11. Case discussed w/ ER physician at length Jaime Roldan MD Jan 06, 2017 12:47
[2017-01-06] MEDS ORDERED: fentaNYL CITRATE 250 MCG/5 ML AMP ONE (13:18)
[2017-01-06] MEDS ORDERED: DO NOT ADM ANY ANTICOAGULANT DRUGS PRN (13:30)
[2017-01-06] MEDS: PIPERACIL-TAZO 3.375 GM PREMIX 50 ML IV SCH ×2 (15:03→21:32)
[2017-01-06] MEDS ORDERED: MIDAZOLAM HCL 2 MG/2 ML VIAL ONE (15:15)
[2017-01-06 18:03] VITALS: O2SAT 98
[2017-01-06 18:28] LABS: C. DIFF EPI 027 PRESUMPTIVE POSITIVE (NEGATIVE); C. DIFF TOXIN PCR POSITIVE (NEGATIVE)
[2017-01-06 19:04] VITALS: BP 139/78; PULSE 88; RESP 18; TEMP 98; O2SAT 96
[2017-01-06 20:00] VITALS: BP 129/81; PULSE 98; RESP 22; TEMP 99.3; O2SAT 98
[2017-01-06] MEDS: PANTOPRAZOLE SODIUM 40 MG VIAL IV PUSH SCH (21:33)
[2017-01-07] VITALS: BP 135/69; PULSE 91; RESP 24; TEMP 98.9; O2SAT 97
[2017-01-07] MEDS: VANCOMYCIN 500 MG VIAL (FOR ORAL USE ONLY) PO SCH ×5 (00:42→23:48)
[2017-01-07] MEDS: MORPHINE SULFATE 4 MG/ML INJ IV PRN ×3 (00:43→21:08)
[2017-01-07] MEDS: PIPERACIL-TAZO 3.375 GM PREMIX 50 ML IV SCH ×4 (02:13→21:03)
[2017-01-07] MEDS: ACETAMINOPHEN/HYDROcodone 325 MG/5 MG TAB PO PRN ×5 (02:13→22:17)
[2017-01-07] MEDS: SODIUM CHLOR 0.9% 1000 ML INJ 1,000 ML IV SCH ×3 (02:14→23:48)
[2017-01-07 04:00] VITALS: BP 140/77; PULSE 87; RESP 22; TEMP 98.2; O2SAT 98
--- NOTE | 2017-01-07 07:34 | MB ---
cc: ROMEO SANDERSON MD DATE OF CONSULTATION: 01/06/2017 REASON FOR CONSULTATION: Left breast abscess. HISTORY OF PRESENT ILLNESS The patient is 36-year-old female multiple medical issues including obesity, hypertension, lymphedema, necrotizing fasciitis of left chest wall. The patient with a previous history of incision and drainage with Vac placement admitted on November 16 to the with the treatment and with surgical debridement and vac by Dr. Lainez. The patient presents with recurrence of left breast pain. She stated the pain started a few days ago with small pimple with the drainage. She said she is getting the vac change and her Home health nurse noted continued drainage from left breast. She then came to the emergency department for further evaluation, was admitted placed on IV antibiotics. Surgery was consulted for evaluation. On my exam the patient is complaints of sensitivity and tenderness to the left breast and some drainage. She states that her wound vacs stopped working today and she denies significant drainage from the vac site but does complain of drainage from the breast site. PAST MEDICAL HISTORY 1. Morbid obesity 2. Hypertension 3. Chronic lymphedema 4. Necrotizing fasciitis. PAST SURGICAL HISTORY Left chest wall debridement 12/17/2016 with Vac. ALLERGIES No known drug allergies. FAMILY HISTORY Denies diabetes or hypertension. SOCIAL HISTORY Positive smoking. Denies EtOH or IVDA. MEDICATIONS See EMR. ALLERGIES NO KNOWN DRUG ALLERGIES. REVIEW OF SYSTEMS IN GENERAL: Denies eye pain, ear pain. NECK: Denies swelling or pain. CHEST: Complains of left chest abscess. Complained of pain. CARDIAC: Denies palpitations or tachycardia. LUNGS: Denies cough or wheeze. ABDOMEN: Denies nausea, vomiting. EXTREMITIES: Denies arthralgia, myalgias. GENITOURINARY: Denies dysuria, hematuria. ENDOCRINE: Denies diabetes or polyuria. INTEGUMENT: As above. PSYCHIATRIC: Denies change in mood or sensorium. PHYSICAL EXAMINATION IN GENERAL: No acute distress. VITAL SIGNS: Temperature 98.8, pulse 103, respirations 15, blood pressure 167/103, pulse 98%. HEAD, EYES, EARS, NOSE, AND THROAT: Pupils equal, round, reactive to light and accommodation, extraocular muscles intact. NECK: The neck is supple. Trachea midline. LUNGS: The lungs are clear to auscultation, bilateral expansion. HEART: S1-S2 regular rhythm. CHEST: Been left axilla with back force healed most suction. BREAST: Left breast inferior aspect with drainage and small abscess cavity lateral aspect, positive tenderness to palpation. EXTREMITIES: Warm, well-perfused. PSYCHIATRIC: Good insight, good judgment. INTEGUMENT: As above. LABORATORY AND DIAGNOSTIC DATA WBC 22.2, hemoglobin and hematocrit 31 platelets 41, sodium 144, potassium 3.1, 110 BUN 6, creatinine 0.8, AST 10, ALT 28, albumin 2.5. X-RAYS Right medial lung consolidation, atelectasis. ASSESSMENT The patient is a 36-year-old female with history of chest wall necrotizing fasciitis currently with new onset of left breast abscess. PLAN A full clinical laboratory workup for the patient with above-named issues including recurrence of a left breast abscess. The patient with significant tenderness and pain. No fevers, very high leukocytosis. In drainage from left breast. At this point the patient on IV antibiotics. I agree with this will make the patient n.p.o. plan for operative intervention including VAC change with appropriate seal an I&D of left breast abscess. This was discussed with the patient in detail. The patient stated understanding, agrees and would like to proceed with operative intervention. MD TYRONE Chang/sai /10:34 PM /6:52 AM
[2017-01-07 07:49] VITALS: BP 152/93; PULSE 89; RESP 22; TEMP 98; O2SAT 100
[2017-01-07] MEDS: hydrALAZINE HCL 25 MG TAB PO SCH ×2 (08:45→21:03)
[2017-01-07] MEDS: amLODIPine BESYLATE 5 MG TAB PO SCH (08:45)
[2017-01-07] MEDS: SODIUM CHLORIDE 0.9% FLUSH 10 ML FLUSH IV FLUSH SCH ×2 (08:45→21:00)
[2017-01-07] MEDS: PANTOPRAZOLE SODIUM 40 MG VIAL IV PUSH SCH ×2 (08:45→21:04)
[2017-01-07] MEDS: METOPROLOL TARTRATE 50 MG TAB PO SCH ×2 (08:45→21:04)
[2017-01-07] MEDS ORDERED: PHARMACY ORDERED LAB ONE (08:45)
[2017-01-07] MEDS: VANCOMYCIN INJ 2,000 MG in SODIUM CHLORID 0.9% 500 ML INJ 500 ML IV SCH (08:46)
[2017-01-07 12:03] VITALS: BP 124/73; PULSE 86; RESP 22; TEMP 98.2; O2SAT 98
[2017-01-07] MEDS ORDERED: POTASSIUM CHLORIDE 20 MEQ CONTROLLED RELEASE TAB PO SCH (13:00)
[2017-01-07] MEDS: POTASSIUM CHLORIDE 10 MEQ CONTROLLED RELEASE TAB PO SCH ×2 (13:42→17:22)
--- NOTE | 2017-01-07 14:08 | HHI.PR ---
Subjective Remarks Follow up on left chest wall necrotizing fasciitis with left rest abscess Patient resting in bed, afebrile no chills Stated her pain is still in the 9 out of 10 not improving on [place] requested increasing the dose No significant diarrhea despite positive C. difficile Objective Vitals Vital Signs Date Time Temp Pulse Resp B/P Pulse Ox O2 Delivery O2 Flow Rate FiO2 01/07/17 12:03 98.2 86 22 124/73 98 01/07/17 07:49 98.0 89 22 152/93 100 01/07/17 04:00 98.2 87 22 140/77 98 01/06/17 20:00 99.3 98 22 129/81 98 01/06/17 19:04 98.0 88 18 139/78 96 01/06/17 18:03 98 21 I/O 01/06/17 01/06/17 01/06/17 01/07/17 01/07/17 01/07/17 07:00 15:00 23:00 07:00 15:00 23:00 Intake Total 615 ml 450 ml 222 ml Output Total 0 ml 1 ml Balance 615 ml 450 ml 221 ml Intake Oral 222 ml IV Total 615 ml 50 ml Other 400 ml Output Stool Total 1 ml Estimated Blood Loss 0 ml # Voids 4 1 1 # Bowel Movements 1 1 Result Diagram: 01/06/1791301/06/17913 Objective Remarks GENERAL: This is a well-nourished, well-developed patient, in no apparent distress. SKIN: Warm skin on the left breast, wound VAC applied to the left chest under her axilla HEAD: Atraumatic. Normocephalic. EYES: Pupils equal round and reactive. Extraocular motions intact. No scleral icterus. ENT: Nose without bleeding, or drainage, Airway patent. NECK: Trachea midline. Supple CARDIOVASCULAR: Regular rate and rhythm without murmurs, gallops, or rubs. RESPIRATORY: Fair air entry bilaterally. No wheezes, rales, or rhonchi. GASTROINTESTINAL: Abdomen soft, non-tender, nondistended. Positive bowel sounds MUSCULOSKELETAL: Extremities +3 edema on the LLE, +1 RLE NEUROLOGICAL: Awake and alert. Moves all extremity. Normal speech.no focal neurological deficit Procedures 01/06- I and D with WOund VAC application A/P Problem List: (1) Sepsis ICD Code: A41.9 Status: Acute (2) Left breast abscess ICD Code: N61.1 Status: Acute (3) Hypokalemia ICD Code: E87.6 Status: Acute (4) Diarrhea ICD Code: R19.7 Status: Acute (5) Necrotizing fasciitis ICD Code: M72.6 Status: Acute (6) Lymphedema ICD Code: I89.0 Status: Acute (7) HTN (hypertension) ICD Code: I10 Status: Acute (8) Morbid obesity ICD Code: E66.01 Status: Acute Assessment and Plan - Sepsis: source Left breast abscess S/P I and D. Continue w/ IV Abx per ID recommendation, appreciate their consult followed her recs for antibiotic. - Necrotizing Fasciitis: Recent admit 11/16-12/20/16 for Sepsis/Nec Fasc to Left Axilla/Chest Wall s/p emergent debridement by Dr. Lainez w/ placement of Wound VAC, currently on [facility]. Following w/ Dr. Lainez as outpatient, last visit w / no complications, next visit 01/10/17. Will consult for further eval. Consult Wound Management for assistance w/ Wound Vac. - C. difficile diarrhea: Symptom improved, on by mouth Vanco with iv per ID, monitor clinical improvement - Lymphedema: Chronic. RLE w/ increased swelling. Previously on Lasix, will resume. Monitor renal function. Wound Consult for Lymphedema Wraps. - Hypokalemia: Replace by mouth/iv as needed, monitor BMP - HTN: resume home medications. Monitor BP. - Morbid Obesity: Chronic. Limited mobility due to body habitus, PT as needed. - DVT Prophylaxis: Mechanical contraindication secondary to severe LE edema. Pharmacologic contraindication secondary to Hemoccult +, high risk for bleeding. Will monitor - Social work for d/c planning as needed. Keesha Del Cid MD Jan 07, 2017 14:08
[2017-01-07 16:07] VITALS: BP 143/91; PULSE 91; RESP 22; TEMP 98; O2SAT 99
[2017-01-07 21:08] VITALS: BP 142/85; PULSE 81
[2017-01-08 00:45] VITALS: BP 138/89; PULSE 89; RESP 18; TEMP 97.6; O2SAT 100
[2017-01-08] MEDS: MORPHINE SULFATE 4 MG/ML INJ IV PRN ×2 (01:14→06:14)
[2017-01-08] MEDS: PIPERACIL-TAZO 3.375 GM PREMIX 50 ML IV SCH ×4 (02:34→21:33)
[2017-01-08] MEDS: ACETAMINOPHEN/HYDROcodone 325 MG/5 MG TAB PO PRN ×5 (02:34→21:35)
[2017-01-08 06:00] VITALS: BP 150/71; PULSE 84; RESP 17; TEMP 97.1; O2SAT 100
[2017-01-08] MEDS: VANCOMYCIN 500 MG VIAL (FOR ORAL USE ONLY) PO SCH ×4 (06:13→23:21)
[2017-01-08 07:46] LABS: AUTOMATED NEUTROPHIL # 16.2 TH/MM3 (1.8-7.7); BASOPHIL % 0.2 % (0.0-2.0); EOSINOPHIL # 0.2 TH/MM3 (0-0.4); HEMATOCRIT 30.5 % (35.0-46.0); LYMPH % 8.4 % (9.0-44.0); LYMPHOCYTE # 1.6 TH/MM3 (1.0-4.8); MEAN CELL VOLUME 87.6 FL (80.0-100.0); MEAN CORPUSCULAR HEMOGLOBIN 27.9 PG (27.0-34.0); MEAN CORPUSCULAR HGB CONC 31.9 % (32.0-36.0); NEUT % 84.4 % (16.0-70.0); PLATELET COUNT 373 TH/MM3 (150-450); RED BLOOD COUNT 3.49 MIL/MM3 (4.00-5.30); RED CELL DISTRIBUTION WIDTH 17.8 % (11.6-17.2); WHITE BLOOD COUNT 19.2 TH/MM3 (4.0-11.0)
[2017-01-08 07:51] LABS: HEMO FLAGS AUTO DIFF
[2017-01-08 07:59] LABS: BICARBONATE 21.2 MEQ/L (21.0-32.0); POTASSIUM 3.9 MEQ/L (3.5-5.1)
[2017-01-08] MEDS: hydrALAZINE HCL 25 MG TAB PO SCH ×2 (08:00→21:34)
[2017-01-08] MEDS: amLODIPine BESYLATE 5 MG TAB PO SCH (08:00)
[2017-01-08] MEDS: METOPROLOL TARTRATE 50 MG TAB PO SCH ×2 (08:00→21:34)
[2017-01-08] MEDS: SODIUM CHLORIDE 0.9% FLUSH 10 ML FLUSH IV FLUSH SCH ×2 (08:00→21:34)
[2017-01-08] MEDS: PANTOPRAZOLE SODIUM 40 MG VIAL IV PUSH SCH ×2 (08:01→21:34)
[2017-01-08] MEDS: SODIUM CHLOR 0.9% 1000 ML INJ 1,000 ML IV SCH (08:01)
[2017-01-08 08:33] VITALS: BP 158/89; PULSE 106; RESP 20; TEMP 98; O2SAT 100
[2017-01-08 10:06] LABS: SCAN/DIFF AUTO DIFF CONFIRMED
--- NOTE | 2017-01-08 10:15 | HHI.PR ---
Subjective Subjective Notes no acute issues, pain better, wbc trending down Objective Vitals/I&O Vital Signs Date Time Temp Pulse Resp B/P Pulse Ox O2 Delivery O2 Flow Rate FiO2 01/08/17 08:33 98.0 106 20 158/89 100 01/06/17 18:03 21 01/06/17 12:55 Room Air 01/06/17 12:20 3 Labs Laboratory Tests Test 01/08/17 06:37 White Blood Count 19.2 Red Blood Count 3.49 Hemoglobin 9.7 Hematocrit 30.5 Mean Corpuscular Volume 87.6 Mean Corpuscular Hemoglobin 27.9 Mean Corpuscular Hemoglobin 31.9 Concent Red Cell Distribution Width 17.8 Platelet Count 373 Mean Platelet Volume 6.6 Neutrophils (%) (Auto) 84.4 Lymphocytes (%) (Auto) 8.4 Monocytes (%) (Auto) 6.0 Eosinophils (%) (Auto) 1.0 Basophils (%) (Auto) 0.2 Neutrophils # (Auto) 16.2 Lymphocytes # (Auto) 1.6 Monocytes # (Auto) 1.2 Eosinophils # (Auto) 0.2 Basophils # (Auto) 0.0 CBC Comment AUTO DIFF Sodium Level 147 Potassium Level 3.9 Chloride Level 115 Carbon Dioxide Level 21.2 Anion Gap 11 Blood Urea Nitrogen 9 Creatinine 1.65 Estimat Glomerular Filtration 43 Rate Random Glucose 84 Calcium Level 8.0 Random Vancomycin Level 15.7 Date/Time Procedure Status Source Growth 01/06/17 11:50 Gram Stain - Final Complete Abscess Breast 01/06/17 11:50 Wound Culture - Final Complete Abscess Breast 01/06/17 11:50 Fungal Smear - Final Resulted Abscess Breast NO FUNGAL ELEMENTS SEEN. 01/06/17 11:50 Fungal Culture Resulted Abscess Breast Pending 01/06/17 11:50 Acid Fast Stain Worksheet Abscess Breast Pending 01/06/17 11:50 Mycobacterial Culture Worksheet Abscess Breast Pending 01/05/17 18:45 Aerobic Blood Culture - Preliminary Resulted Blood Peripheral NO GROWTH IN 2 DAYS 01/05/17 18:45 Anaerobic Blood Culture - Preliminary Resulted Blood Peripheral NO GROWTH IN 2 DAYS Cardiovascular: Regular Lungs: Clear Wound Wound : Wound Location: Chest (left chest vac in place, plastic pealing to medial aspect) A/P Assessment and Plan POD 2 I and d with vac left chest and axilla PLAN reg diet oob pain control vac to sxn- replace vac today or tomorrow will check Left chest us today iv abx Rubin Mayes MD Jan 08, 2017 10:15
--- NOTE | 2017-01-08 12:08 | RADRPT ---
EXAM DATE/TIME: 01/08/2017 10:27 [facility] COMPARISON: No previous studies available for comparison. INDICATIONS : Abscess. MEDICAL HISTORY : Hypertension. Ovarian cysts. Arthritis. Chronic lymphedema. SURGICAL HISTORY : Left axilla drain placement. ENCOUNTER: Initial ACUITY: 4-6 days PAIN SCORE: 4/10 LOCATION: Left breast. FINDINGS: No focal fluid collection is seen. There is edema seen throughout the left breast. The patient does h ave a drain in place. CONCLUSION: Diffuse edema throughout the left breast without a focal fluid collection seen. Aristides Edmond MD on January 08, 2017 at 12:06 Board Certified Radiologist. This report was verified electronically.
[2017-01-08 12:34] VITALS: BP 143/92; PULSE 91; RESP 20; TEMP 96.9; O2SAT 100
--- NOTE | 2017-01-08 13:11 | HHI.PR ---
Subjective Remarks Clinically she is doing well however creatinine increased to 1.6 today as well as increasing sodium She denied any fever or chills, pain is tolerable on pain medication Wound VAC in place Objective Vitals Vital Signs Date Time Temp Pulse Resp B/P Pulse Ox O2 Delivery O2 Flow Rate FiO2 01/08/17 12:34 96.9 91 20 143/92 100 01/08/17 08:33 98.0 106 20 158/89 100 01/08/17 06:00 97.1 84 17 150/71 100 01/08/17 00:45 97.6 89 18 138/89 100 01/07/17 21:08 81 142/85 01/07/17 16:07 98.0 91 22 143/91 99 I/O 01/07/17 01/07/17 01/07/17 01/08/17 01/08/17 01/08/17 07:00 15:00 23:00 07:00 15:00 23:00 Intake Total 480 ml 3500 ml Balance 480 ml 3500 ml Intake Oral 480 ml 2200 ml IV Total 1300 ml # Voids 2 4 # Bowel Movements 1 0 Result Diagram: 01/08/1737 01/08/1737 Objective Remarks GENERAL: This is a well-nourished, well-developed patient, in no apparent distress. SKIN: Warm skin on the left breast, wound VAC applied to the left chest under her axilla HEAD: Atraumatic. Normocephalic. EYES: Pupils equal round and reactive. Extraocular motions intact. No scleral icterus. ENT: Nose without bleeding, or drainage, Airway patent. NECK: Trachea midline. Supple CARDIOVASCULAR: Regular rate and rhythm without murmurs, gallops, or rubs. RESPIRATORY: Fair air entry bilaterally. No wheezes, rales, or rhonchi. GASTROINTESTINAL: Abdomen soft, non-tender, nondistended. Positive bowel sounds MUSCULOSKELETAL: Extremities +3 edema on the LLE, +1 RLE NEUROLOGICAL: Awake and alert. Moves all extremity. Normal speech.no focal neurological deficit Procedures 01/06- I and D with WOund VAC application A/P Problem List: (1) Sepsis ICD Code: A41.9 Status: Acute (2) Left breast abscess ICD Code: N61.1 Status: Acute (3) Hypokalemia ICD Code: E87.6 Status: Acute (4) Diarrhea ICD Code: R19.7 Status: Acute (5) Necrotizing fasciitis ICD Code: M72.6 Status: Acute (6) Lymphedema ICD Code: I89.0 Status: Acute (7) HTN (hypertension) ICD Code: I10 Status: Acute (8) Morbid obesity ICD Code: E66.01 Status: Acute Assessment and Plan 01/08: BLESSING with hypernatremia switch iv fluid to half-normal saline, monitor BMP , wound VAC to be changed tomorrow as per surgery, check renal failure panel including using a pulse in the urine rule out interstitial nephritis A/P: - BLESSING: With hypernatremia, will switch iv fluid to half-normal saline, monitor BMP, pharmacy to continue adjusting Vanco level, repeat BMP in a.m. we' ll check renal failure panel - Sepsis: source Left breast abscess S/P I & D. Continue w/ IV Abx per ID recommendation, appreciate their consult followed her recs for antibiotic. - Necrotizing Fasciitis: Recent admit 11/16-12/20/16 for Sepsis/Nec Fasc to Left Axilla/Chest Wall s/p emergent debridement by Dr. Lainez w/ placement of Wound VAC, currently on [facility]. Following w/ Dr. Lainez as outpatient, last visit w / no complications, next visit 01/10/17. Will consult for further eval. Consult Wound Management for assistance w/ Wound Vac. - C. difficile diarrhea: Symptom improved, on by mouth Vanco with iv per ID, monitor clinical improvement - Lymphedema: Chronic. RLE w/ increased swelling. Previously on Lasix, will resume. Monitor renal function. Wound Consult for Lymphedema Wraps. - Hypokalemia: Replace by mouth/iv as needed, monitor BMP - HTN: resume home medications. Monitor BP. - Morbid Obesity: Chronic. Limited mobility due to body habitus, PT as needed. - DVT Prophylaxis: Mechanical contraindication secondary to severe LE edema. Pharmacologic contraindication secondary to Hemoccult +, high risk for bleeding. Will monitor - Social work for d/c planning as needed. Keesha Del Cid MD Jan 08, 2017 13:10
[2017-01-08] MEDS ORDERED: VANCOMYCIN INJ 1,250 MG in SODIUM CHLOR 0.9% 250 ML INJ 250 ML IV ONE (14:00)
[2017-01-08] MEDS ORDERED: SODIUM CHLOR 0.45% 1000 ML INJ 1,000 ML IV ONE (14:00)
[2017-01-08 16:16] VITALS: BP 165/94; PULSE 123; RESP 20; TEMP 97.9; O2SAT 100
[2017-01-08 16:43] LABS: BLOOD, URINE NEG (NEG); COMMENT (UR) CULT NOT INDICATED; CULTURE IF INDICATED CULT NOT INDICATED; GLUCOSE,URINE NEG (NEG); KETONE, URINE NEG (NEG); NITRITE,URINE NEG (NEG); SQUAMOUS EPITHELIAL CELL URINE 1 /hpf (0-5); URINE COLOR LIGHT-YELLOW (YELLW/STRAW)
[2017-01-08 20:00] VITALS: BP 118/99; PULSE 109; RESP 20; TEMP 95.6; O2SAT 100
--- NOTE | 2017-01-08 21:39 | RADRPT ---
EXAM DATE/TIME: 01/08/2017 18:32 [facility] COMPARISON: US KIDNEY/RENAL/BLADDER, November 24, 2016, 9:51. INDICATIONS : Chronic kidney disease. MEDICAL HISTORY : Hypertension. Ovarian cysts. Arthritis. Chronic lymphedema. SURGICAL HISTORY : Drain placement in left axilla. ENCOUNTER: Subsequent ACUITY: 1 day PAIN SCORE: 0/10 LOCATION: Bilateral flank MEASUREMENTS: RIGHT KIDNEY: 13.7 x 6.5 x 6.3 cm LEFT KIDNEY: 13.6 x 7.5 x 8.1 cm FINDINGS: RIGHT KIDNEY: Renal cortex is normal in thickness and echotexture. No hydronephrosis, stone, or mass. LEFT KIDNEY: Renal cortex is normal in thickness and echotexture. No hydronephrosis, stone, or mass. BLADDER: Smooth margins. Mildly distended. CONCLUSION: Symmetric enlarged kidneys bilaterally. No focal lesions seen.. Kulwinder Fish MD on January 08, 2017 at 21:36 Board Certified Radiologist. This report was verified electronically.
[2017-01-08] MEDS: traZODone HCL 50 MG TAB PO SCH (23:21)
[2017-01-09] VITALS: BP 154/95; PULSE 80; RESP 20; TEMP 97.6; O2SAT 98
[2017-01-09] MEDS: PIPERACIL-TAZO 3.375 GM PREMIX 50 ML IV SCH ×3 (03:00→14:30)
[2017-01-09] MEDS: ACETAMINOPHEN/HYDROcodone 325 MG/5 MG TAB PO PRN ×3 (03:11→14:29)
[2017-01-09 04:00] VITALS: BP 159/98; PULSE 90; RESP 20; TEMP 98.4; O2SAT 100
[2017-01-09] MEDS: VANCOMYCIN 500 MG VIAL (FOR ORAL USE ONLY) PO SCH ×3 (05:22→18:56)
[2017-01-09 07:55] VITALS: BP 163/97; PULSE 88; RESP 18; TEMP 96.1; O2SAT 99
[2017-01-09] MEDS: METOPROLOL TARTRATE 50 MG TAB PO SCH (08:28)
[2017-01-09] MEDS: hydrALAZINE HCL 25 MG TAB PO SCH (08:28)
[2017-01-09] MEDS: amLODIPine BESYLATE 5 MG TAB PO SCH (08:28)
[2017-01-09] MEDS: PANTOPRAZOLE SODIUM 40 MG VIAL IV PUSH SCH (09:00)
[2017-01-09] MEDS: SODIUM CHLORIDE 0.9% FLUSH 10 ML FLUSH IV FLUSH SCH (10:55)
[2017-01-09 11:21] LABS: BICARBONATE 25.7 MEQ/L (21.0-32.0); POTASSIUM 3.7 MEQ/L (3.5-5.1)
[2017-01-09 11:30] VITALS: BP 183/103; PULSE 95; RESP 18; TEMP 96.7; O2SAT 100
--- NOTE | 2017-01-09 11:44 | MP ---
cc: URBIN MAYES MD DATE OF SURGERY: 01/06/2017. PREOPERATIVE DIAGNOSIS: Left breast abscess. POSTOPERATIVE DIAGNOSIS: Left breast abscess. PROCEDURE PERFORMED: Incision and drainage of left breast abscess with VAC change and replacement. SURGEON: Dr. Rubin Mayes. TRAUMA REGISTRAR: See the OR sheet ANESTHESIA: GETA. IV FLUIDS: See anesthesia sheet. ESTIMATED BLOOD LOSS: 5 cc. DRAINS: VAC. COMPLICATIONS None. WOUND CLASSIFICATION: Dirty. SPECIMENS: Purulent drainage from breast. FINDINGS Purulent cavity inferior left breast. VAC with good seal. INDICATIONS FOR THE PROCEDURE: The patient is a 36-year-old female who has a history of left chest necrotizing fasciitis status post VAC change and placement. The patient underwent debridement and was doing relatively well but over the last few days developed increased pain and swelling to the left breast. The patient with significant leukocytosis. The patient came to the emergency department for further evaluation and was noted to have an abscess. Therefore decision was made for operative intervention. DESCRIPTION OF THE PROCEDURE IN DETAIL: The patient was taken to the operating suite and placed in supine position. She was prepped and draped in the usual sterile fashion after induction of general endotracheal anesthesia. Brief time-out was done stating correct patient, procedure surgical site and all were in agreement with this. Attention was first directed to the VAC that had already been removed. Dressings were removed. The previous granulating axillary tissue was irrigated thoroughly. Palpation of the breast noted a small abscess cavity inferior breast at the six o'clock position. A curvilinear incision was made along the point of abscess with purulent material noted to be extravasating out. A small elliptical incision was made with a hemostat used for further breaking up loculations. Irrigation was done to the cavity and debridement done. Next everything was wiped clean and the VAC was obtained. The sponge was placed in original position to the axilla. A small sponge was cut for abscess cavity in the breast. Plastic was placed. A bridge was created between the two cavities and the track pad was placed with this VAC placement and suction with good seal. The patient tolerated the procedure well. There were no intraoperative complications. The patient was extubated and taken stable to the post-anesthesia care unit. All lap and instrument counts were correct at the of the procedure. MD TYRONE Chang/ABHISHEK /10:41 PM /11:37 AM
--- NOTE | 2017-01-09 12:20 | HHI.PR ---
Subjective Remarks Feels tired no fever or chills she is concerned about her high blood pressure Objective Vitals Vital Signs Date Time Temp Pulse Resp B/P Pulse Ox O2 Delivery O2 Flow Rate FiO2 01/09/17 07:55 96.1 88 18 163/97 99 01/09/17 04:00 98.4 90 20 159/98 100 01/09/17 00:00 97.6 80 20 154/95 98 01/08/17 20:00 95.6 109 20 118/99 100 01/08/17 16:16 97.9 123 20 165/94 100 01/08/17 12:34 96.9 91 20 143/92 100 I/O 01/08/17 01/08/17 01/08/17 01/09/17 01/09/17 01/09/17 07:00 15:00 23:00 07:00 15:00 23:00 Intake Total 3500 ml 600 ml 240 ml 700 ml Balance 3500 ml 600 ml 240 ml 700 ml Intake Oral 2200 ml 600 ml 240 ml IV Total 1300 ml 700 ml # Voids 4 5 1 2 # Bowel Movements 0 2 1 2 Result Diagram: 01/08/17 0637 01/09/17 1010 Objective Remarks GENERAL: This is a well-nourished, well-developed patient, in no apparent distress. SKIN: Warm skin on the left breast, wound VAC applied to the left chest under her axilla HEAD: Atraumatic. Normocephalic. EYES: Pupils equal round and reactive. Extraocular motions intact. No scleral icterus. ENT: Nose without bleeding, or drainage, Airway patent. NECK: Trachea midline. Supple CARDIOVASCULAR: Regular rate and rhythm without murmurs, gallops, or rubs. RESPIRATORY: Fair air entry bilaterally. No wheezes, rales, or rhonchi. GASTROINTESTINAL: Abdomen soft, non-tender, nondistended. Positive bowel sounds MUSCULOSKELETAL: Extremities +3 edema on the LLE, +1 RLE NEUROLOGICAL: Awake and alert. Moves all extremity. Normal speech.no focal neurological deficit Procedures 01/06- I and D with WOund VAC application A/P Problem List: (1) Sepsis ICD Code: A41.9 Status: Acute (2) Left breast abscess ICD Code: N61.1 Status: Acute (3) Hypokalemia ICD Code: E87.6 Status: Acute (4) Diarrhea ICD Code: R19.7 Status: Acute (5) Necrotizing fasciitis ICD Code: M72.6 Status: Acute (6) Lymphedema ICD Code: I89.0 Status: Acute (7) HTN (hypertension) ICD Code: I10 Status: Acute (8) Morbid obesity ICD Code: E66.01 Status: Acute Assessment and Plan 01/08: BLESSING with hypernatremia switch iv fluid to half-normal saline, monitor BMP , wound VAC to be changed tomorrow as per surgery, check renal failure panel including using a pulse in the urine rule out interstitial nephritis 01/09: Creatinine still at 1.6, renal ultrasound bilateral kidney enlargement no other specific pathology, increased urine protein over creatinine ratio, no eosinophil in the UA Continue hydration and avoid nephrotoxins, uncontrolled hypertension we'll increase amlodipine didn't 10 mg A/P: - BLESSING: With hypernatremia, will switch iv fluid to half-normal saline, monitor BMP, pharmacy to continue adjusting Vanco level, repeat BMP in a.m. we' ll check renal failure panel - Sepsis: source Left breast abscess S/P I & D. Continue w/ IV Abx per ID recommendation, appreciate their consult followed her recs for antibiotic. - Necrotizing Fasciitis: Recent admit 11/16-12/20/16 for Sepsis/Nec Fasc to Left Axilla/Chest Wall s/p emergent debridement by Dr. Lainez w/ placement of Wound VAC, currently on [facility]. Following w/ Dr. Lainez as outpatient, last visit w / no complications, next visit 01/10/17. Will consult for further eval. Consult Wound Management for assistance w/ Wound Vac. - C. difficile diarrhea: Symptom improved, on by mouth Vanco with iv per ID, monitor clinical improvement - Lymphedema: Chronic. RLE w/ increased swelling. Previously on Lasix, will resume. Monitor renal function. Wound Consult for Lymphedema Wraps. - Hypokalemia: Replace by mouth/iv as needed, monitor BMP - HTN: l uncontrolled resume home medications. Increase amlodipine to 10 mg daily, Monitor BP. - Morbid Obesity: Chronic. Limited mobility due to body habitus, PT as needed. - DVT Prophylaxis: Mechanical contraindication secondary to severe LE edema. Pharmacologic contraindication secondary to Hemoccult +, high risk for bleeding. Will monitor - Social work for d/c planning as needed. Keesha Del Cid MD Jan 09, 2017 12:20
[2017-01-09] MEDS ORDERED: amLODIPine BESYLATE 5 MG TAB PO ONE (14:00)
[2017-01-09] MEDS ORDERED: VANCOMYCIN INJ 1,250 MG in SODIUM CHLOR 0.9% 250 ML INJ 250 ML IV ONE (15:00)
[2017-01-09 15:35] VITALS: BP 144/97; PULSE 97; RESP 18; TEMP 98.6; O2SAT 100
--- NOTE | 2017-01-09 16:03 | HHI.PR ---
Subjective Subjective Notes EVELINA Golden from Wound Team at bedside during exam Wound Vac removed Patient has some increased pain today Objective Vitals/I&O Vital Signs Date Time Temp Pulse Resp B/P Pulse Ox O2 Delivery O2 Flow Rate FiO2 01/09/17 11:30 96.7 95 18 183/103 100 01/06/17 18:03 21 01/06/17 12:55 Room Air 01/06/17 12:20 3 Labs Laboratory Tests Test 01/08/17 01/09/17 16:08 10:10 Urine Color LIGHT-YELLOW Urine Turbidity CLEAR Urine pH 6.0 Urine Specific [place]igator 1.008 Urine Protein NEG Urine Glucose (UA) NEG Urine Ketones NEG Urine Occult Blood NEG Urine Nitrite NEG Urine Bilirubin NEG Urine Urobilinogen LESS THAN 2.0 Urine Leukocyte Esterase LARGE Urine RBC 2 Urine WBC 8 Urine Squamous Epithelial 1 Cells Microscopic Urinalysis Comment CULT NOT INDICATED Urine Eosinophils NONE SEEN Urine Random Creatinine 41 Urine Random Total Protein 24 Urine Random Sodium 71 Urine Protein/Creatinine Ratio 0.59 Sodium Level 146 Potassium Level 3.7 Chloride Level 114 Carbon Dioxide Level 25.7 Anion Gap 6 Blood Urea Nitrogen 9 Creatinine 1.61 Estimat Glomerular Filtration 44 Rate Random Glucose 103 Calcium Level 8.7 Random Vancomycin Level 16.8 Date/Time Procedure Status Source Growth 01/06/17 11:50 Gram Stain - Final Complete Abscess Breast 01/06/17 11:50 Wound Culture - Final Complete Abscess Breast 01/06/17 11:50 Fungal Smear - Final Resulted Abscess Breast NO FUNGAL ELEMENTS SEEN. 01/06/17 11:50 Fungal Culture Resulted Abscess Breast Pending 01/06/17 11:50 Acid Fast Stain - Final Resulted Abscess Breast NO ACID FAST BACILLI SEEN 01/06/17 11:50 Mycobacterial Culture Resulted Abscess Breast Pending 01/05/17 18:45 Aerobic Blood Culture - Preliminary Resulted Blood Peripheral NO GROWTH IN 4 DAYS 01/05/17 18:45 Anaerobic Blood Culture - Preliminary Resulted Blood Peripheral NO GROWTH IN 4 DAYS Cardiovascular: Regular Lungs: Clear Abdomen: Non-distended, Non-tender Narrative Exam LEFT breast----small open area s/p abscess drainage---wound bed clean and dry LEFT axillary--- open wound with good granulation of tissue; 3 areas of tunneling A/P Assessment and Plan 36 year old female s/p NG of LEFT breast and axillary; re admitted with small LEFT breast abscess (s/p I&D) -Wet to dry dressing to LEFT breast -Continue Wound Vac to LEFT axillary -Pain control -Regular diet Attending Statement stable, remove vac place wet to dry patient seen at bedside Attestation The exam, history, and the medical decision-making described in the above note were completed with the assistance of the mid-level provider. I reviewed and agree with the findings presented. I attest that I had a [id number] encounter with the patient on the same day, and personally performed and documented my assessment and findings in the medical record. Priyanka Ocasio Jan 09, 2017 16:02 Rubin Mayes MD January 22, 2017 23:55
--- NOTE | 2017-01-09 19:41 | HHI.IDPN ---
Subjective Subjective Remarks doing good diarrhea resolved no fever Antibiotics zosyn po vanco vanco IV Allergies: Coded Allergies: No Known Allergies (Unverified , 01/05/17) Objective . Vital Signs Date Time Temp Pulse Resp B/P Pulse Ox O2 Delivery O2 Flow Rate FiO2 01/09/17 15:35 98.6 97 18 144/97 100 01/09/17 11:30 96.7 95 18 183/103 100 01/09/17 07:55 96.1 88 18 163/97 99 01/09/17 04:00 98.4 90 20 159/98 100 01/09/17 00:00 97.6 80 20 154/95 98 01/08/17 20:00 95.6 109 20 118/99 100 01/08/17 01/08/17 01/09/17 15:00 23:00 07:00 Intake Total 600 ml 240 ml 700 ml Balance 600 ml 240 ml 700 ml Intake Oral 600 ml 240 ml IV Total 700 ml # Voids 5 1 2 # Bowel Movements 2 1 2 . Laboratory Tests Test 01/08/17 06:37 White Blood Count 19.2 TH/MM3 Red Blood Count 3.49 MIL/MM3 Hemoglobin 9.7 GM/DL Hematocrit 30.5 % Mean Corpuscular Volume 87.6 FL Mean Corpuscular Hemoglobin 27.9 PG Mean Corpuscular Hemoglobin 31.9 % Concent Red Cell Distribution Width 17.8 % Platelet Count 373 TH/MM3 Mean Platelet Volume 6.6 FL Neutrophils (%) (Auto) 84.4 % Lymphocytes (%) (Auto) 8.4 % Monocytes (%) (Auto) 6.0 % Eosinophils (%) (Auto) 1.0 % Basophils (%) (Auto) 0.2 % Neutrophils # (Auto) 16.2 TH/MM3 Lymphocytes # (Auto) 1.6 TH/MM3 Monocytes # (Auto) 1.2 TH/MM3 Eosinophils # (Auto) 0.2 TH/MM3 Basophils # (Auto) 0.0 TH/MM3 CBC Comment AUTO DIFF Differential Comment AUTO DIFF CONFIRMED Laboratory Tests Test 01/08/17 01/09/17 06:37 10:10 Sodium Level 147 MEQ/L 146 MEQ/L Potassium Level 3.9 MEQ/L 3.7 MEQ/L Chloride Level 115 MEQ/L 114 MEQ/L Carbon Dioxide Level 21.2 MEQ/L 25.7 MEQ/L Anion Gap 11 MEQ/L 6 MEQ/L Blood Urea Nitrogen 9 MG/DL 9 MG/DL Creatinine 1.65 MG/DL 1.61 MG/DL Estimat Glomerular Filtration 43 ML/MIN 44 ML/MIN Rate Random Glucose 84 MG/DL 103 MG/DL Calcium Level 8.0 MG/DL 8.7 MG/DL Imaging Last Impressions Renal Ultrasound 01/08/17 0000 Signed Impressions: Service Date/Time: Sunday, January 08, 2017 18:32 - CONCLUSION: Symmetric enlarged kidneys bilaterally. No focal lesions seen.. Kulwinder Fish MD Breast Ultrasound 01/08/17 0000 Signed Impressions: Service Date/Time: Sunday, January 08, 2017 10:27 - CONCLUSION: Diffuse edema throughout the left breast without a focal fluid collection seen. Aristides Edmond MD Chest X-Ray 01/05/17 2225 Signed Impressions: Service Date/Time: December 22:37 - CONCLUSION: 1. Focal consolidation within the right medial lung base. Infiltrate versus rounded atelectasis. Followup study suggested to document resolution. 2. Cardiomegaly. Kulwinder Chaudhary Jr., MD Physical Exam CONSTITUTIONAL/GENERAL: This is a morbidly obese patient, in no apparent distress. SKIN: Large skin fully 100% granulated wound in L axilla area L breast less edematous and not tender to aplpation , No erythema Small wound in LOQ clean, min serosang dc Ecchymoses on upper extremities. No wounds seen anteriorly. Skin temperature appropriate. Not diaphoretic. HEAD: Atraumatic. Normocephalic. EYES: Pupils equal and round and reactive. Extraocular motions intact. No scleral icterus. No injection or drainage. Fundi not examined. CARDIOVASCULAR: Regular rate and rhythm without murmurs, gallops, or rubs. RESPIRATORY/CHEST: Symmetric, unlabored respirations. Clear to auscultation. GASTROINTESTINAL: Abdomen soft, non-tender, nondistended. Bowel sounds present. MUSCULOSKELETAL: Extremities without clubbing, cyanosis, or edema. NEUROLOGICAL: Awake and alert. Non focal Assessment & Plan Remarks Nec fas L axilla, resolved New abscess L breast; clx with skin everett Diarrhea with recent abx exposure C.diff + - hypervirulent 027 strain - - clinically resolved - dc zosyn - cont vanco IV - cont po vanco x 2 wks after all abx stopped Rachel Marsh MD Jan 09, 2017 19:41
[2017-01-09 21:08] VITALS: BP 159/102; PULSE 116; RESP 21; TEMP 98.3; O2SAT 93
[2017-01-10] MEDS: traZODone HCL 50 MG TAB PO SCH ×2 (00:07→22:23)
[2017-01-10] MEDS: PANTOPRAZOLE SODIUM 40 MG VIAL IV PUSH SCH ×3 (00:07→22:22)
[2017-01-10] MEDS: ACETAMINOPHEN/HYDROcodone 325 MG/5 MG TAB PO PRN ×5 (00:08→22:23)
[2017-01-10] MEDS: METOPROLOL TARTRATE 50 MG TAB PO SCH ×3 (00:08→18:39)
[2017-01-10] MEDS: hydrALAZINE HCL 25 MG TAB PO SCH ×3 (00:08→22:22)
[2017-01-10] MEDS: VANCOMYCIN 500 MG VIAL (FOR ORAL USE ONLY) PO SCH ×4 (00:17→18:40)
[2017-01-10 02:02] VITALS: BP 154/101; PULSE 93; RESP 21; TEMP 97.7; O2SAT 98
[2017-01-10 05:51] VITALS: BP 152/90; PULSE 83; RESP 20; TEMP 98.1; O2SAT 98
[2017-01-10] MEDS: SODIUM CHLORIDE 0.9% FLUSH 10 ML FLUSH IV FLUSH SCH ×2 (06:12→08:46)
[2017-01-10] MEDS: ACETAMINOPHEN 325 MG TAB PO PRN (06:17)
[2017-01-10 07:37] VITALS: BP 151/93; PULSE 75; RESP 19; TEMP 97.6; O2SAT 99
[2017-01-10] MEDS: VANCOMYCIN INJ 1,500 MG in SODIUM CHLORID 0.9% 500 ML INJ 500 ML IV SCH (11:29)
[2017-01-10 11:36] VITALS: BP 144/84; PULSE 90; RESP 19; TEMP 97.1; O2SAT 99
--- NOTE | 2017-01-10 14:07 | HHI.PR ---
Subjective Subjective Notes no acute issues, no fevers Objective Vitals/I&O Vital Signs Date Time Temp Pulse Resp B/P Pulse Ox O2 Delivery O2 Flow Rate FiO2 01/10/17 11:36 97.1 90 19 144/84 99 01/06/17 18:03 21 01/06/17 12:55 Room Air 01/06/17 12:20 3 Labs Laboratory Tests Test 01/10/17 06:49 Creatinine 1.50 Estimat Glomerular Filtration 48 Rate Random Vancomycin Level 17.3 Date/Time Procedure Status Source Growth 01/06/17 11:50 Gram Stain - Final Complete Abscess Breast 01/06/17 11:50 Wound Culture - Final Complete Abscess Breast 01/06/17 11:50 Fungal Smear - Final Resulted Abscess Breast NO FUNGAL ELEMENTS SEEN. 01/06/17 11:50 Fungal Culture Resulted Abscess Breast Pending 01/06/17 11:50 Acid Fast Stain - Final Resulted Abscess Breast NO ACID FAST BACILLI SEEN 01/06/17 11:50 Mycobacterial Culture Resulted Abscess Breast Pending 01/05/17 18:45 Aerobic Blood Culture - Final Complete Blood Peripheral NO GROWTH IN 5 DAYS 01/05/17 18:45 Anaerobic Blood Culture - Final Complete Blood Peripheral NO GROWTH IN 5 DAYS Wound Wound : Wound Location: Chest (left axilla with vac c/d/i, good seal, abscess c/d/i with dressing) A/P Assessment and Plan s/p I and d with vac left chest and axilla PLAN reg diet oob pain control vac to sxn- replace vac q3 days iv abx will follow peripherally Rubin Mayes MD Jan 10, 2017 14:07
--- NOTE | 2017-01-10 14:50 | HHI.PR ---
Subjective Remarks No acute issue besides pain, no shortness of breath or fever or chills Objective Vitals Vital Signs Date Time Temp Pulse Resp B/P Pulse Ox O2 Delivery O2 Flow Rate FiO2 01/10/17 11:36 97.1 90 19 144/84 99 01/10/17 07:37 97.6 75 19 151/93 99 01/10/17 05:51 98.1 83 20 152/90 98 01/10/17 02:02 97.7 93 21 154/101 98 01/09/17 21:08 98.3 116 21 159/102 93 01/09/17 15:35 98.6 97 18 144/97 100 I/O 01/09/17 01/09/17 01/09/17 01/10/17 01/10/17 01/10/17 07:00 15:00 23:00 07:00 15:00 23:00 Intake Total 700 ml 480 ml Balance 700 ml 480 ml Intake Oral 480 ml IV Total 700 ml # Voids 2 3 # Bowel Movements 2 1 1 3 Result Diagram: 01/08/17 0637 01/10/17 0649 Objective Remarks GENERAL: This is a well-nourished, well-developed patient, in no apparent distress. SKIN: Warm skin on the left breast, wound VAC applied to the left chest under her axilla HEAD: Atraumatic. Normocephalic. EYES: Pupils equal round and reactive. Extraocular motions intact. No scleral icterus. ENT: Nose without bleeding, or drainage, Airway patent. NECK: Trachea midline. Supple CARDIOVASCULAR: Regular rate and rhythm without murmurs, gallops, or rubs. RESPIRATORY: Fair air entry bilaterally. No wheezes, rales, or rhonchi. GASTROINTESTINAL: Abdomen soft, non-tender, nondistended. Positive bowel sounds MUSCULOSKELETAL: Extremities +3 edema on the LLE, +1 RLE NEUROLOGICAL: Awake and alert. Moves all extremity. Normal speech.no focal neurological deficit Procedures 01/06- I and D with WOund VAC application A/P Problem List: (1) Sepsis ICD Code: A41.9 Status: Acute (2) Left breast abscess ICD Code: N61.1 Status: Acute (3) Hypokalemia ICD Code: E87.6 Status: Acute (4) Diarrhea ICD Code: R19.7 Status: Acute (5) Necrotizing fasciitis ICD Code: M72.6 Status: Acute (6) Lymphedema ICD Code: I89.0 Status: Acute (7) HTN (hypertension) ICD Code: I10 Status: Acute (8) Morbid obesity ICD Code: E66.01 Status: Acute Assessment and Plan 01/08: BLESSING with hypernatremia switch iv fluid to half-normal saline, monitor BMP , wound VAC to be changed tomorrow as per surgery, check renal failure panel including using a pulse in the urine rule out interstitial nephritis 01/09: Creatinine still at 1.6, renal ultrasound bilateral kidney enlargement no other specific pathology, increased urine protein over creatinine ratio, no eosinophil in the UA Continue hydration and avoid nephrotoxins, uncontrolled hypertension we'll increase amlodipine didn't 10 mg 01/10: Creatinine is slowly trending down 1.5 today, wound VAC to suction with changing every 3 days, dressing wet-to-dry per surgery, continue iv and ear vancomycin per ID, pressure in better controlled today will continue monitoring A/P: - BLESSING: With hypernatremia, will switch iv fluid to half-normal saline, monitor BMP, pharmacy to continue adjusting Vanco level, repeat BMP in a.m. we' ll check renal failure panel - Sepsis: source Left breast abscess S/P I & D. Continue w/ IV Abx per ID recommendation, appreciate their consult followed her recs for antibiotic. - Necrotizing Fasciitis: Recent admit 11/16-12/20/16 for Sepsis/Nec Fasc to Left Axilla/Chest Wall s/p emergent debridement by Dr. Lainez w/ placement of Wound VAC, currently on [facility]. Following w/ Dr. Lainez as outpatient, last visit w / no complications, next visit 01/10/17. Will consult for further eval. Consult Wound Management for assistance w/ Wound Vac. - C. difficile diarrhea: Symptom improved, on by mouth Vanco with iv per ID, monitor clinical improvement - Lymphedema: Chronic. RLE w/ increased swelling. Previously on Lasix, will resume. Monitor renal function. Wound Consult for Lymphedema Wraps. - Hypokalemia: Replace by mouth/iv as needed, monitor BMP - HTN: l uncontrolled resume home medications. Increase amlodipine to 10 mg daily, Monitor BP. - Morbid Obesity: Chronic. Limited mobility due to body habitus, PT as needed. - DVT Prophylaxis: Mechanical contraindication secondary to severe LE edema. Pharmacologic contraindication secondary to Hemoccult +, high risk for bleeding. Will monitor - Social work for d/c planning as needed. Keesha Del Cid MD Jan 10, 2017 14:50
[2017-01-10 15:41] VITALS: BP 162/110; PULSE 103; RESP 19; TEMP 97.3; O2SAT 100
[2017-01-10 20:00] VITALS: BP 161/99; PULSE 96; RESP 20; TEMP 98; O2SAT 94
[2017-01-10] MEDS: cloNIDine HCL 0.1 MG TAB PO PRN (22:38)
[2017-01-11 01:17] VITALS: BP 129/81; PULSE 91; RESP 20; TEMP 98.1; O2SAT 97
[2017-01-11] MEDS: VANCOMYCIN 500 MG VIAL (FOR ORAL USE ONLY) PO SCH ×5 (02:14→23:41)
[2017-01-11] MEDS: METOPROLOL TARTRATE 50 MG TAB PO SCH ×3 (02:15→17:47)
[2017-01-11] MEDS: SODIUM CHLORIDE 0.9% FLUSH 10 ML FLUSH IV FLUSH SCH ×3 (02:15→23:42)
[2017-01-11] MEDS: ACETAMINOPHEN/HYDROcodone 325 MG/5 MG TAB PO PRN ×6 (02:26→23:41)
[2017-01-11] MEDS: ACETAMINOPHEN 325 MG TAB PO PRN ×2 (05:22→23:57)
[2017-01-11] MEDS: VANCOMYCIN INJ 1,500 MG in SODIUM CHLORID 0.9% 500 ML INJ 500 ML IV SCH (05:24)
[2017-01-11] MEDS: hydrALAZINE HCL 25 MG TAB PO SCH ×3 (05:24→23:43)
[2017-01-11 05:57] VITALS: BP 135/85; PULSE 77; RESP 20; TEMP 97.8; O2SAT 100
[2017-01-11 08:00] VITALS: BP 170/92; PULSE 85; RESP 20; TEMP 98; O2SAT 98
[2017-01-11] MEDS: PANTOPRAZOLE SODIUM 40 MG VIAL IV PUSH SCH ×2 (09:11→23:43)
[2017-01-11 12:00] VITALS: BP 159/63; PULSE 83; RESP 20; TEMP 98.1; O2SAT 99
[2017-01-11 16:00] VITALS: BP 162/108; PULSE 105; RESP 20; TEMP 98.1; O2SAT 99
--- NOTE | 2017-01-11 16:59 | HHI.PR ---
Objective Vitals Vital Signs Date Time Temp Pulse Resp B/P Pulse Ox O2 Delivery O2 Flow Rate FiO2 01/11/17 14:25 20 01/11/17 12:00 98.1 83 20 159/63 99 01/11/17 08:00 98.0 85 20 170/92 98 01/11/17 05:57 97.8 77 20 135/85 100 01/11/17 01:17 98.1 91 20 129/81 97 01/10/17 20:00 98.0 96 20 161/99 94 I/O 01/10/17 01/10/17 01/10/17 01/11/17 01/11/17 01/11/17 07:00 15:00 23:00 07:00 15:00 23:00 Intake Total 480 ml Balance 480 ml Intake Oral 480 ml # Voids 3 5 # Bowel Movements 1 3 5 Result Diagram: 01/08/17 0637 01/11/17 0945 Objective Remarks GENERAL: This is a well-nourished, well-developed patient, in no apparent distress. SKIN: Warm skin on the left breast, wound VAC applied to the left chest under her axilla HEAD: Atraumatic. Normocephalic. EYES: Pupils equal round and reactive. Extraocular motions intact. No scleral icterus. ENT: Nose without bleeding, or drainage, Airway patent. NECK: Trachea midline. Supple CARDIOVASCULAR: Regular rate and rhythm without murmurs, gallops, or rubs. RESPIRATORY: Fair air entry bilaterally. No wheezes, rales, or rhonchi. GASTROINTESTINAL: Abdomen soft, non-tender, nondistended. Positive bowel sounds MUSCULOSKELETAL: Extremities +3 edema on the LLE, +1 RLE NEUROLOGICAL: Awake and alert. Moves all extremity. Normal speech.no focal neurological deficit Procedures 01/06- I and D with WOund VAC application A/P Problem List: (1) Sepsis ICD Code: A41.9 Status: Acute (2) Left breast abscess ICD Code: N61.1 Status: Acute (3) Hypokalemia ICD Code: E87.6 Status: Acute (4) Diarrhea ICD Code: R19.7 Status: Acute (5) Necrotizing fasciitis ICD Code: M72.6 Status: Acute (6) Lymphedema ICD Code: I89.0 Status: Chronic (7) HTN (hypertension) ICD Code: I10 Status: Acute (8) Morbid obesity ICD Code: E66.01 Status: Chronic Assessment and Plan 01/08: BLESSING with hypernatremia switch iv fluid to half-normal saline, monitor BMP , wound VAC to be changed tomorrow as per surgery, check renal failure panel including using a pulse in the urine rule out interstitial nephritis 01/09: Creatinine still at 1.6, renal ultrasound bilateral kidney enlargement no other specific pathology, increased urine protein over creatinine ratio, no eosinophil in the UA Continue hydration and avoid nephrotoxins, uncontrolled hypertension we'll increase amlodipine didn't 10 mg 01/10: Creatinine is slowly trending down 1.5 today, wound VAC to suction with changing every 3 days, dressing wet-to-dry per surgery, continue iv and ear vancomycin per ID, pressure in better controlled today will continue monitoring A/P: - BLESSING: With hypernatremia, will switch iv fluid to half-normal saline, monitor BMP, pharmacy to continue adjusting Vanco level, repeat BMP in a.m. we' ll check renal failure panel - Sepsis: source Left breast abscess S/P I & D. Continue w/ IV Abx per ID recommendation, appreciate their consult followed her recs for antibiotic. - Necrotizing Fasciitis: Recent admit 11/16-12/20/16 for Sepsis/Nec Fasc to Left Axilla/Chest Wall s/p emergent debridement by Dr. Lainez w/ placement of Wound VAC, currently on [facility]. Following w/ Dr. Lainez as outpatient, last visit w / no complications, next visit 01/10/17. Will consult for further eval. Consult Wound Management for assistance w/ Wound Vac. - C. difficile diarrhea: Symptom improved, on by mouth Vanco with iv per ID, monitor clinical improvement - Lymphedema: Chronic. RLE w/ increased swelling. Previously on Lasix, will resume. Monitor renal function. Wound Consult for Lymphedema Wraps. - Hypokalemia: Replace by mouth/iv as needed, monitor BMP - HTN: l uncontrolled resume home medications. Increase amlodipine to 10 mg daily, Monitor BP. - Morbid Obesity: Chronic. Limited mobility due to body habitus, PT as needed. - DVT Prophylaxis: Mechanical contraindication secondary to severe LE edema. Pharmacologic contraindication secondary to Hemoccult +, high risk for bleeding. Will monitor - Social work for d/c planning as needed. Problem Qualifiers (1) Morbid obesity: Qualified Code: E66.01 - Morbid obesity due to excess calories Keesha Del Cid MD Jan 11, 2017 16:59
--- NOTE | 2017-01-11 17:02 | HHI.PR ---
Subjective Remarks Doing well she asked for morphine when changing dressing which she's going to have today Afebrile no short of breath Objective Vitals Vital Signs Date Time Temp Pulse Resp B/P Pulse Ox O2 Delivery O2 Flow Rate FiO2 01/11/17 14:25 20 01/11/17 12:00 98.1 83 20 159/63 99 01/11/17 08:00 98.0 85 20 170/92 98 01/11/17 05:57 97.8 77 20 135/85 100 01/11/17 01:17 98.1 91 20 129/81 97 01/10/17 20:00 98.0 96 20 161/99 94 I/O 01/10/17 01/10/17 01/10/17 01/11/17 01/11/17 01/11/17 07:00 15:00 23:00 07:00 15:00 23:00 Intake Total 480 ml Balance 480 ml Intake Oral 480 ml # Voids 3 5 # Bowel Movements 1 3 5 Result Diagram: 01/08/17 0637 01/11/17 0945 Objective Remarks GENERAL: This is a well-nourished, well-developed patient, in no apparent distress. SKIN: Warm skin on the left breast, wound VAC applied to the left chest under her axilla HEAD: Atraumatic. Normocephalic. EYES: Pupils equal round and reactive. Extraocular motions intact. No scleral icterus. ENT: Nose without bleeding, or drainage, Airway patent. NECK: Trachea midline. Supple CARDIOVASCULAR: Regular rate and rhythm without murmurs, gallops, or rubs. RESPIRATORY: Fair air entry bilaterally. No wheezes, rales, or rhonchi. GASTROINTESTINAL: Abdomen soft, non-tender, nondistended. Positive bowel sounds MUSCULOSKELETAL: Extremities +3 edema on the LLE, +1 RLE NEUROLOGICAL: Awake and alert. Moves all extremity. Normal speech.no focal neurological deficit Procedures 01/06- I and D with WOund VAC application A/P Problem List: (1) Sepsis ICD Code: A41.9 Status: Acute (2) Left breast abscess ICD Code: N61.1 Status: Acute (3) Hypokalemia ICD Code: E87.6 Status: Acute (4) Diarrhea ICD Code: R19.7 Status: Acute (5) Necrotizing fasciitis ICD Code: M72.6 Status: Acute (6) Lymphedema ICD Code: I89.0 Status: Acute (7) HTN (hypertension) ICD Code: I10 Status: Acute (8) Morbid obesity ICD Code: E66.01 Status: Acute Assessment and Plan 01/08: BLESSING with hypernatremia switch iv fluid to half-normal saline, monitor BMP , wound VAC to be changed tomorrow as per surgery, check renal failure panel including using a pulse in the urine rule out interstitial nephritis 01/09: Creatinine still at 1.6, renal ultrasound bilateral kidney enlargement no other specific pathology, increased urine protein over creatinine ratio, no eosinophil in the UA Continue hydration and avoid nephrotoxins, uncontrolled hypertension we'll increase amlodipine didn't 10 mg 01/10: Creatinine is slowly trending down 1.5 today, wound VAC to suction with changing every 3 days, dressing wet-to-dry per surgery, continue iv and ear vancomycin per ID, pressure in better controlled today will continue monitoring 01/11: Stable, going to have a dressing change today she asked for morphine dose when changing dressing, creatinine trending nicely trending down 1.32 today A/P: - BLESSING: With hypernatremia, will switch iv fluid to half-normal saline, monitor BMP, pharmacy to continue adjusting Vanco level, repeat BMP in a.m. we' ll check renal failure panel - Sepsis: source Left breast abscess S/P I & D. Continue w/ IV Abx per ID recommendation, appreciate their consult followed her recs for antibiotic. - Necrotizing Fasciitis: Recent admit 11/16-12/20/16 for Sepsis/Nec Fasc to Left Axilla/Chest Wall s/p emergent debridement by Dr. Lainez w/ placement of Wound VAC, currently on [facility]. Following w/ Dr. Lainez as outpatient, last visit w / no complications, next visit 01/10/17. Will consult for further eval. Consult Wound Management for assistance w/ Wound Vac. - C. difficile diarrhea: Symptom improved, on by mouth Vanco with iv per ID, monitor clinical improvement - Lymphedema: Chronic. RLE w/ increased swelling. Previously on Lasix, will resume. Monitor renal function. Wound Consult for Lymphedema Wraps. - Hypokalemia: Replace by mouth/iv as needed, monitor BMP - HTN: l uncontrolled resume home medications. Increase amlodipine to 10 mg daily, Monitor BP. - Morbid Obesity: Chronic. Limited mobility due to body habitus, PT as needed. - DVT Prophylaxis: Mechanical contraindication secondary to severe LE edema. Pharmacologic contraindication secondary to Hemoccult +, high risk for bleeding. Will monitor - Social work for d/c planning as needed. Keesha Del Cid MD Jan 11, 2017 17:02
[2017-01-11 20:00] VITALS: BP 136/85; PULSE 87; RESP 20; TEMP 98.5; O2SAT 98
[2017-01-11] MEDS: traZODone HCL 50 MG TAB PO SCH (23:43)
[2017-01-11] MEDS ORDERED: PHARMACY ORDERED LAB ONE (23:45)
[2017-01-11] MEDS: cloNIDine HCL 0.1 MG TAB PO PRN (23:56)
[2017-01-12] VITALS: BP 165/97; PULSE 90; RESP 20; TEMP 98.1; O2SAT 97
[2017-01-12] MEDS: METOPROLOL TARTRATE 50 MG TAB PO SCH ×3 (00:09→16:49)
[2017-01-12] MEDS: VANCOMYCIN INJ 1,500 MG in SODIUM CHLORID 0.9% 500 ML INJ 500 ML IV SCH ×2 (00:09→18:00)
[2017-01-12 01:13] LABS: BICARBONATE 26.3 MEQ/L (21.0-32.0); POTASSIUM 3.1 MEQ/L (3.5-5.1)
[2017-01-12 01:15] LABS: VANCOMYCIN TROUGH 16.4 MCG/ML (5.0-10.0)
[2017-01-12 04:00] VITALS: BP 139/89; PULSE 82; RESP 20; TEMP 97.1; O2SAT 98
[2017-01-12] MEDS: hydrALAZINE HCL 25 MG TAB PO SCH ×3 (05:44→20:56)
[2017-01-12] MEDS: VANCOMYCIN 500 MG VIAL (FOR ORAL USE ONLY) PO SCH ×3 (05:44→18:00)
[2017-01-12] MEDS: ACETAMINOPHEN/HYDROcodone 325 MG/5 MG TAB PO PRN ×4 (05:45→22:26)
[2017-01-12 07:12] LABS: AUTOMATED NEUTROPHIL # 16.2 TH/MM3 (1.8-7.7); BASOPHIL # 0.1 TH/MM3 (0-0.2); BASOPHIL % 0.4 % (0.0-2.0); EOSINOPHIL # 0.1 TH/MM3 (0-0.4); EOSINOPHIL % 0.7 % (0.0-4.0); HEMATOCRIT 30.5 % (35.0-46.0); HEMO FLAGS DIFF FINAL; LYMPH % 9.2 % (9.0-44.0); LYMPHOCYTE # 1.8 TH/MM3 (1.0-4.8); MEAN CORPUSCULAR HEMOGLOBIN 27.4 PG (27.0-34.0); MEAN CORPUSCULAR HGB CONC 31.5 % (32.0-36.0); MONO % 4.8 % (0.0-8.0); NEUT % 84.9 % (16.0-70.0); PLATELET COUNT 386 TH/MM3 (150-450); RED CELL DISTRIBUTION WIDTH 17.6 % (11.6-17.2); WHITE BLOOD COUNT 19.1 TH/MM3 (4.0-11.0)
[2017-01-12 08:00] VITALS: BP 180/111; PULSE 104; RESP 20; TEMP 98.2; O2SAT 99
[2017-01-12] MEDS: PANTOPRAZOLE SODIUM 40 MG VIAL IV PUSH SCH ×2 (08:36→20:56)
[2017-01-12] MEDS: ACETAMINOPHEN 325 MG TAB PO PRN (08:38)
[2017-01-12] MEDS: SODIUM CHLORIDE 0.9% FLUSH 10 ML FLUSH IV FLUSH SCH ×2 (09:00→20:57)
[2017-01-12 12:00] VITALS: BP 139/89; PULSE 93; RESP 20; TEMP 97.8; O2SAT 99
--- NOTE | 2017-01-12 12:25 | HHI.PR ---
Subjective Remarks Patient comfortably laying in bed doing well stated the left breast. Less warm and less indurated She has hypokalemia and hypernatremia with creatinine 1. 27 Objective Vitals Vital Signs Date Time Temp Pulse Resp B/P Pulse Ox O2 Delivery O2 Flow Rate FiO2 01/12/17 08:00 98.2 104 20 180/111 99 01/12/17 04:00 97.1 82 20 139/89 98 01/12/17 00:00 98.1 90 20 165/97 97 01/11/17 20:00 98.5 87 20 136/85 98 01/11/17 16:00 98.1 105 20 162/108 99 01/11/17 14:25 20 I/O 01/11/17 01/11/17 01/11/17 01/12/17 01/12/17 01/12/17 07:00 15:00 23:00 07:00 15:00 23:00 Output Total 700 ml Balance -700 ml Output Urine Total 700 ml # Voids 5 3 2 # Bowel Movements 5 3 0 Result Diagram: 01/12/17 0645 01/11/17 9830 Objective Remarks GENERAL: This is a well-nourished, well-developed patient, in no apparent distress. SKIN: Warm skin on the left breast, wound VAC applied to the left chest under her axilla HEAD: Atraumatic. Normocephalic. EYES: Pupils equal round and reactive. Extraocular motions intact. No scleral icterus. ENT: Nose without bleeding, or drainage, Airway patent. NECK: Trachea midline. Supple CARDIOVASCULAR: Regular rate and rhythm without murmurs, gallops, or rubs. RESPIRATORY: Fair air entry bilaterally. No wheezes, rales, or rhonchi. GASTROINTESTINAL: Abdomen soft, non-tender, nondistended. Positive bowel sounds MUSCULOSKELETAL: Extremities +3 edema on the LLE, +1 RLE NEUROLOGICAL: Awake and alert. Moves all extremity. Normal speech.no focal neurological deficit Procedures 01/06- I and D with WOund VAC application A/P Problem List: (1) Sepsis ICD Code: A41.9 Status: Acute (2) Left breast abscess ICD Code: N61.1 Status: Acute (3) Hypokalemia ICD Code: E87.6 Status: Acute (4) Diarrhea ICD Code: R19.7 Status: Acute (5) Necrotizing fasciitis ICD Code: M72.6 Status: Acute (6) Lymphedema ICD Code: I89.0 Status: Acute (7) HTN (hypertension) ICD Code: I10 Status: Acute (8) Morbid obesity ICD Code: E66.01 Status: Acute Assessment and Plan 01/08: BLESSING with hypernatremia switch iv fluid to half-normal saline, monitor BMP , wound VAC to be changed tomorrow as per surgery, check renal failure panel including using a pulse in the urine rule out interstitial nephritis 01/09: Creatinine still at 1.6, renal ultrasound bilateral kidney enlargement no other specific pathology, increased urine protein over creatinine ratio, no eosinophil in the UA Continue hydration and avoid nephrotoxins, uncontrolled hypertension we'll increase amlodipine didn't 10 mg 01/10: Creatinine is slowly trending down 1.5 today, wound VAC to suction with changing every 3 days, dressing wet-to-dry per surgery, continue iv and ear vancomycin per ID, pressure in better controlled today will continue monitoring 01/11: Stable, going to have a dressing change today she asked for morphine dose when changing dressing, creatinine trending nicely trending down 1.32 today 01/12: Stable, she is having still hypernatremia 146 with hypokalemia 3.1, creatinine improved to 1.27, will start half-normal saline with 20 ME Q KCl and repeat BMP in a.m. A/P: - BLESSING: With hypernatremia, will switch iv fluid to half-normal saline, monitor BMP, pharmacy to continue adjusting Vanco level, repeat BMP in a.m. we' ll check renal failure panel - Sepsis: source Left breast abscess S/P I & D. Continue w/ IV Abx per ID recommendation, appreciate their consult followed her recs for antibiotic. - Necrotizing Fasciitis: Recent admit 11/16-12/20/16 for Sepsis/Nec Fasc to Left Axilla/Chest Wall s/p emergent debridement by Dr. Lainez w/ placement of Wound VAC, currently on [facility]. Following w/ Dr. Lainez as outpatient, last visit w / no complications, next visit 01/10/17. Will consult for further eval. Consult Wound Management for assistance w/ Wound Vac. - C. difficile diarrhea: Symptom improved, on by mouth Vanco with iv per ID, monitor clinical improvement - Lymphedema: Chronic. RLE w/ increased swelling. Previously on Lasix, will resume. Monitor renal function. Wound Consult for Lymphedema Wraps. - Hypokalemia: Replace by mouth/iv as needed, monitor BMP - HTN: l uncontrolled resume home medications. Increase amlodipine to 10 mg daily, Monitor BP. - Morbid Obesity: Chronic. Limited mobility due to body habitus, PT as needed. - DVT Prophylaxis: Mechanical contraindication secondary to severe LE edema. Pharmacologic contraindication secondary to Hemoccult +, high risk for bleeding. Will monitor - Social work for d/c planning as needed. Keesha Del Cid MD Jan 12, 2017 12:25
[2017-01-12] MEDS: 1/2 NS + KCL 20 MEQ INJ 1,000 ML IV SCH ×2 (14:11→14:30)
[2017-01-12 14:14] LABS: BICARBONATE 23.3 MEQ/L (21.0-32.0)
[2017-01-12 16:00] VITALS: BP 141/91; PULSE 99; RESP 20; TEMP 97.6; O2SAT 98
[2017-01-12] MEDS: POTASSIUM CHLORIDE 20 MEQ CONTROLLED RELEASE TAB PO SCH ×2 (16:50→20:57)
[2017-01-12] MEDS: SODIUM CHLOR 0.45% 1000 ML INJ 1,000 ML IV SCH ×2 (16:53→18:00)
[2017-01-12] MEDS: ONDANSETRON HCL 4 MG/2 ML VIAL IVP PRN (18:58)
[2017-01-12 20:31] VITALS: BP 138/93; PULSE 97; RESP 17; TEMP 98.3; O2SAT 100
[2017-01-12] MEDS: traZODone HCL 50 MG TAB PO SCH (20:57)
[2017-01-13] MEDS: METOPROLOL TARTRATE 50 MG TAB PO SCH ×3 (00:24→17:10)
[2017-01-13] MEDS: VANCOMYCIN 500 MG VIAL (FOR ORAL USE ONLY) PO SCH ×4 (00:24→17:10)
[2017-01-13] MEDS: ACETAMINOPHEN 325 MG TAB PO PRN (00:25)
[2017-01-13 00:48] VITALS: BP 142/74; PULSE 105; RESP 17; TEMP 98.1; O2SAT 100
[2017-01-13] MEDS: ACETAMINOPHEN/HYDROcodone 325 MG/5 MG TAB PO PRN ×4 (02:26→17:10)
[2017-01-13] MEDS: hydrALAZINE HCL 25 MG TAB PO SCH ×3 (06:13→22:26)
[2017-01-13 06:17] VITALS: BP 136/86; PULSE 90; RESP 16; TEMP 98.1; O2SAT 100
[2017-01-13 07:50] LABS: AUTOMATED NEUTROPHIL # 14.8 TH/MM3 (1.8-7.7); BASOPHIL % 0.3 % (0.0-2.0); EOSINOPHIL # 0.1 TH/MM3 (0-0.4); EOSINOPHIL % 0.5 % (0.0-4.0); HEMO FLAGS DIFF FINAL; LYMPH % 10.1 % (9.0-44.0); LYMPHOCYTE # 1.8 TH/MM3 (1.0-4.8); MEAN CORPUSCULAR HEMOGLOBIN 28.6 PG (27.0-34.0); MEAN CORPUSCULAR HGB CONC 33.2 % (32.0-36.0); MONO % 6.4 % (0.0-8.0); NEUT % 82.7 % (16.0-70.0); PLATELET COUNT 395 TH/MM3 (150-450); RED BLOOD COUNT 3.25 MIL/MM3 (4.00-5.30); RED CELL DISTRIBUTION WIDTH 17.6 % (11.6-17.2); WHITE BLOOD COUNT 17.8 TH/MM3 (4.0-11.0)
[2017-01-13 08:00] VITALS: BP 162/87; PULSE 91; RESP 20; TEMP 98.3; O2SAT 99
[2017-01-13 08:06] LABS: BICARBONATE 24.4 MEQ/L (21.0-32.0); POTASSIUM 3.4 MEQ/L (3.5-5.1)
[2017-01-13] MEDS: PANTOPRAZOLE SODIUM 40 MG VIAL IV PUSH SCH ×2 (08:38→22:26)
[2017-01-13] MEDS: SODIUM CHLORIDE 0.9% FLUSH 10 ML FLUSH IV FLUSH SCH ×2 (08:54→22:27)
[2017-01-13] MEDS ORDERED: CEFEPIME INJ 1,000 MG in SODIUM CHLORIDE 0.9% INJ 100 ML IV SCH (09:00)
[2017-01-13] MEDS ORDERED: DEXTROSE 5% IN WATE 1000ML INJ 1,000 ML IV SCH (10:00)
[2017-01-13] MEDS: MORPHINE SULFATE 4 MG/ML INJ IV PRN ×2 (10:07→22:27)
[2017-01-13] MEDS: ONDANSETRON HCL 4 MG/2 ML VIAL IVP PRN ×2 (10:07→22:26)
[2017-01-13 12:00] VITALS: BP 166/85; PULSE 96; RESP 20; TEMP 98.1; O2SAT 98
[2017-01-13] MEDS: VANCOMYCIN INJ 1,500 MG in SODIUM CHLORID 0.9% 500 ML INJ 500 ML IV SCH (12:11)
--- NOTE | 2017-01-13 12:56 | HHI.PR ---
Subjective Remarks Patient seen and examined with the wound care nurse Patient had episode of vomiting this morning, she feels more warmth in her left breast Objective Vitals Vital Signs Date Time Temp Pulse Resp B/P Pulse Ox O2 Delivery O2 Flow Rate FiO2 01/13/17 12:00 98.1 96 20 166/85 98 01/13/17 08:00 98.3 91 20 162/87 99 01/13/17 07:14 18 01/13/17 06:17 98.1 90 16 136/86 100 01/13/17 00:48 98.1 105 17 142/74 100 01/12/17 21:04 Room Air 01/12/17 20:31 98.3 97 17 138/93 100 01/12/17 16:00 97.6 99 20 141/91 98 I/O 01/12/17 01/12/17 01/12/17 01/13/17 01/13/17 01/13/17 07:00 15:00 23:00 07:00 15:00 23:00 Intake Total 480 ml Balance 480 ml Intake Oral 480 ml # Voids 2 5 5 # Bowel Movements 0 3 2 Result Diagram: 01/13/17 0656 01/13/17 0656 Objective Remarks GENERAL: This is a well-nourished, well-developed patient, in no apparent distress. SKIN: Warm skin on the left breast, wound VAC applied to the left chest under her axilla HEAD: Atraumatic. Normocephalic. EYES: Pupils equal round and reactive. Extraocular motions intact. No scleral icterus. ENT: Nose without bleeding, or drainage, Airway patent. NECK: Trachea midline. Supple CHEST: Midaxillary wound looks clean, left1 also looks clean with PACs and, in duration appreciated on the left breast CARDIOVASCULAR: Regular rate and rhythm without murmurs, gallops, or rubs. RESPIRATORY: Fair air entry bilaterally. No wheezes, rales, or rhonchi. GASTROINTESTINAL: Abdomen soft, non-tender, nondistended. Positive bowel sounds MUSCULOSKELETAL: Extremities +3 edema on the LLE, +1 RLE NEUROLOGICAL: Awake and alert. Moves all extremity. Normal speech.no focal neurological deficit Procedures 01/06- I and D with WOund VAC application A/P Problem List: (1) Sepsis ICD Code: A41.9 Status: Acute (2) Left breast abscess ICD Code: N61.1 Status: Acute (3) Hypokalemia ICD Code: E87.6 Status: Acute (4) Diarrhea ICD Code: R19.7 Status: Acute (5) Necrotizing fasciitis ICD Code: M72.6 Status: Acute (6) Lymphedema ICD Code: I89.0 Status: Acute (7) HTN (hypertension) ICD Code: I10 Status: Acute (8) Morbid obesity ICD Code: E66.01 Status: Acute Assessment and Plan 01/08: BLESSING with hypernatremia switch iv fluid to half-normal saline, monitor BMP , wound VAC to be changed tomorrow as per surgery, check renal failure panel including using a pulse in the urine rule out interstitial nephritis 01/09: Creatinine still at 1.6, renal ultrasound bilateral kidney enlargement no other specific pathology, increased urine protein over creatinine ratio, no eosinophil in the UA Continue hydration and avoid nephrotoxins, uncontrolled hypertension we'll increase amlodipine didn't 10 mg 01/10: Creatinine is slowly trending down 1.5 today, wound VAC to suction with changing every 3 days, dressing wet-to-dry per surgery, continue iv and ear vancomycin per ID, pressure in better controlled today will continue monitoring 01/11: Stable, going to have a dressing change today she asked for morphine dose when changing dressing, creatinine trending nicely trending down 1.32 today 01/12: Stable, she is having still hypernatremia 146 with hypokalemia 3.1, creatinine improved to 1.27, will start half-normal saline with 20 ME Q KCl and repeat BMP in a.m. 01/13: Episode of vomiting this morning, the wound care nurse think the left breast is more indurated today we'll asked surgery to see, continue antibiotic per ID recommendation A/P: - BLESSING: With hypernatremia, will switch iv fluid to half-normal saline, monitor BMP, pharmacy to continue adjusting Vanco level, repeat BMP in a.m. we' ll check renal failure panel - Sepsis: source Left breast abscess S/P I & D. Continue w/ IV Abx per ID recommendation, appreciate their consult followed her recs for antibiotic. - Necrotizing Fasciitis: Recent admit 11/16-12/20/16 for Sepsis/Nec Fasc to Left Axilla/Chest Wall s/p emergent debridement by Dr. Lainez w/ placement of Wound VAC, currently on [facility]. Following w/ Dr. Lainez as outpatient, last visit w / no complications, next visit 01/10/17. Will consult for further eval. Consult Wound Management for assistance w/ Wound Vac. - C. difficile diarrhea: Symptom improved, on by mouth Vanco with iv per ID, monitor clinical improvement - Lymphedema: Chronic. RLE w/ increased swelling. Previously on Lasix, will resume. Monitor renal function. Wound Consult for Lymphedema Wraps. - Hypokalemia: Replace by mouth/iv as needed, monitor BMP - HTN: l uncontrolled resume home medications. Increase amlodipine to 10 mg daily, Monitor BP. - Morbid Obesity: Chronic. Limited mobility due to body habitus, PT as needed. - DVT Prophylaxis: Mechanical contraindication secondary to severe LE edema. Pharmacologic contraindication secondary to Hemoccult +, high risk for bleeding. Will monitor - Social work for d/c planning as needed. Keesha Del Cid MD Jan 13, 2017 12:55
[2017-01-13] MEDS: SODIUM CHLOR 0.45% 1000 ML INJ 1,000 ML IV SCH (16:05)
[2017-01-13 16:12] VITALS: BP 134/85; PULSE 112; RESP 20; TEMP 98.2; O2SAT 99
--- NOTE | 2017-01-13 19:33 | HHI.IDPN ---
Subjective Subjective Remarks co worsening edema, tenderness and induration of her L breast Had emesis yday after dinner Also had chills all night wo fever Diarrhea improved 5 or 6 BMs ydy, only 2 today Antibiotics po vanco vanco IV Allergies: Coded Allergies: No Known Allergies (Unverified , 01/05/17) Objective . Vital Signs Date Time Temp Pulse Resp B/P Pulse Ox O2 Delivery O2 Flow Rate FiO2 01/13/17 16:12 98.2 112 20 134/85 99 01/13/17 13:57 20 01/13/17 12:00 98.1 96 20 166/85 98 01/13/17 10:12 18 01/13/17 08:40 Room Air 01/13/17 08:00 98.3 91 20 162/87 99 01/13/17 06:17 98.1 90 16 136/86 100 01/13/17 00:48 98.1 105 17 142/74 100 01/12/17 21:04 Room Air 01/12/17 20:31 98.3 97 17 138/93 100 01/12/17 01/12/17 01/13/17 15:00 23:00 07:00 Intake Total 480 ml Balance 480 ml Intake Oral 480 ml # Voids 5 5 # Bowel Movements 3 2 . Laboratory Tests Test 01/12/17 01/13/17 06:45 06:56 White Blood Count 19.1 TH/MM3 17.8 TH/MM3 Red Blood Count 3.50 MIL/MM3 3.25 MIL/MM3 Hemoglobin 9.6 GM/DL 9.3 GM/DL Hematocrit 30.5 % 28.0 % Mean Corpuscular Volume 87.0 FL 86.0 FL Mean Corpuscular Hemoglobin 27.4 PG 28.6 PG Mean Corpuscular Hemoglobin 31.5 % 33.2 % Concent Red Cell Distribution Width 17.6 % 17.6 % Platelet Count 386 TH/MM3 395 TH/MM3 Mean Platelet Volume 6.6 FL 6.8 FL Neutrophils (%) (Auto) 84.9 % 82.7 % Lymphocytes (%) (Auto) 9.2 % 10.1 % Monocytes (%) (Auto) 4.8 % 6.4 % Eosinophils (%) (Auto) 0.7 % 0.5 % Basophils (%) (Auto) 0.4 % 0.3 % Neutrophils # (Auto) 16.2 TH/MM3 14.8 TH/MM3 Lymphocytes # (Auto) 1.8 TH/MM3 1.8 TH/MM3 Monocytes # (Auto) 0.9 TH/MM3 1.1 TH/MM3 Eosinophils # (Auto) 0.1 TH/MM3 0.1 TH/MM3 Basophils # (Auto) 0.1 TH/MM3 0.0 TH/MM3 CBC Comment DIFF FINAL DIFF FINAL Differential Comment Laboratory Tests Test 01/11/17 01/12/17 01/13/17 23:50 13:15 06:56 Sodium Level 147 MEQ/L 146 MEQ/L 147 MEQ/L Potassium Level 3.1 MEQ/L 3.0 MEQ/L 3.4 MEQ/L Chloride Level 112 MEQ/L 113 MEQ/L 115 MEQ/L Carbon Dioxide Level 26.3 MEQ/L 23.3 MEQ/L 24.4 MEQ/L Anion Gap 9 MEQ/L 10 MEQ/L 8 MEQ/L Blood Urea Nitrogen 11 MG/DL 10 MG/DL 9 MG/DL Creatinine 1.36 MG/DL 1.27 MG/DL 1.14 MG/DL Estimat Glomerular Filtration 53 ML/MIN 58 ML/MIN 65 ML/MIN Rate Random Glucose 100 MG/DL 105 MG/DL 102 MG/DL Calcium Level 8.3 MG/DL 8.4 MG/DL 8.3 MG/DL Imaging Last Impressions Renal Ultrasound 01/08/17 0000 Signed Impressions: Service Date/Time: Sunday, January 08, 2017 18:32 - CONCLUSION: Symmetric enlarged kidneys bilaterally. No focal lesions seen.. Kulwinder Fish MD Breast Ultrasound 01/08/17 0000 Signed Impressions: Service Date/Time: Sunday, January 08, 2017 10:27 - CONCLUSION: Diffuse edema throughout the left breast without a focal fluid collection seen. Aristides Edmond MD Chest X-Ray 01/05/17 2225 Signed Impressions: Service Date/Time: December 22:37 - CONCLUSION: 1. Focal consolidation within the right medial lung base. Infiltrate versus rounded atelectasis. Followup study suggested to document resolution. 2. Cardiomegaly. Kulwinder Chaudhary Jr., MD Physical Exam CONSTITUTIONAL/GENERAL: This is a morbidly obese patient, in no apparent distress. SKIN: Large skin fully 100% granulated wound in L axilla area c min serous d/c L breast more edematous and again tender to palpation , + mild erythema Diffuse induraion no area of fluctuance Small wound in LOQ clean, min serosang dc Ecchymoses on upper extremities. No wounds seen anteriorly. Skin temperature appropriate. Not diaphoretic. HEAD: Atraumatic. Normocephalic. EYES: Pupils equal and round and reactive. Extraocular motions intact. No scleral icterus. No injection or drainage. Fundi not examined. CARDIOVASCULAR: Regular rate and rhythm without murmurs, gallops, or rubs. RESPIRATORY/CHEST: Symmetric, unlabored respirations. Clear to auscultation. GASTROINTESTINAL: Abdomen soft, non-tender, nondistended. Bowel sounds present. MUSCULOSKELETAL: Extremities without clubbing, cyanosis, or edema. NEUROLOGICAL: Awake and alert. Non focal Assessment & Plan Remarks Nec fas L axilla, resolved abscess L breast; clx with skin everett ? new abscess - received > 1 week of vanco, clinically worse Diarrhea with recent abx exposure C.diff + - hypervirulent 027 strain - - clinically resolved Mild renal insufficiency ? vanco contributing - dc vanco IV - cont po vanco x 2 wks after all abx stopped - repeat US breast; if fluid collection will need aspiration - if worse off abx will start broad spectrum empirically ow await clx monitor clinically Rachel Marsh MD Jan 13, 2017 19:33
[2017-01-13 20:00] VITALS: BP 142/94; PULSE 93; RESP 18; TEMP 98.3; O2SAT 100
[2017-01-13] MEDS: traZODone HCL 50 MG TAB PO SCH (22:26)
[2017-01-14] VITALS: BP 137/71; PULSE 82; RESP 18; TEMP 98.8; O2SAT 95
[2017-01-14] MEDS: VANCOMYCIN 500 MG VIAL (FOR ORAL USE ONLY) PO SCH ×4 (01:11→17:07)
[2017-01-14] MEDS: METOPROLOL TARTRATE 50 MG TAB PO SCH ×3 (01:11→17:07)
[2017-01-14] MEDS: ACETAMINOPHEN/HYDROcodone 325 MG/5 MG TAB PO PRN ×3 (01:12→23:03)
[2017-01-14 04:00] VITALS: BP 184/111; PULSE 90; RESP 20; TEMP 97.4; O2SAT 100
[2017-01-14] MEDS: SODIUM CHLOR 0.45% 1000 ML INJ 1,000 ML IV SCH (04:00)
[2017-01-14] MEDS: hydrALAZINE HCL 25 MG TAB PO SCH ×3 (05:29→22:57)
[2017-01-14] MEDS ORDERED: PHARMACY ORDERED LAB ONE (05:45)
[2017-01-14 08:00] VITALS: BP 146/91; PULSE 91; RESP 18; TEMP 98.4; O2SAT 98
--- NOTE | 2017-01-14 08:40 | RADRPT ---
EXAM DATE/TIME: 01/14/2017 07:57 [place] COMPARISON: US BREAST LEFT, January 08, 2017, 10:27. INDICATIONS : Left breast pain and edema. MEDICAL HISTORY : Hypertension. Ovarian cyst. Arthritis. Chronic lymphedema. SURGICAL HISTORY : Drain placement and removal from left breast. ENCOUNTER: Subsequent ACUITY: 1 month PAIN SCORE: 4/10 LOCATION: Left breast. FINDINGS: There is skin thickening and diffuse edema of the breast tissue identified. There is a small amount o f fluid at the 7: 00 position 6 cm of the nipple measuring 2 x 1.6 cm in AP and transverse dimension. CONCLUSION: 1. Diffuse skin thickening, edema and a small amount of fluid in the left breast as described above. Abraham Mata MD on January 14, 2017 at 8:36 Board Certified Radiologist. This report was verified electronically.
[2017-01-14] MEDS: PANTOPRAZOLE SODIUM 40 MG VIAL IV PUSH SCH ×2 (08:43→22:57)
[2017-01-14] MEDS: SODIUM CHLORIDE 0.9% FLUSH 10 ML FLUSH IV FLUSH SCH ×2 (08:43→20:30)
[2017-01-14 08:49] LABS: BICARBONATE 23.1 MEQ/L (21.0-32.0); POTASSIUM 3.5 MEQ/L (3.5-5.1)
[2017-01-14] MEDS: ONDANSETRON HCL 4 MG/2 ML VIAL IVP PRN ×2 (08:55→17:07)
[2017-01-14] MEDS: ACETAMINOPHEN 325 MG TAB PO PRN ×2 (11:28→20:31)
[2017-01-14 12:00] VITALS: BP 152/90; PULSE 96; RESP 19; TEMP 97.2; O2SAT 98
[2017-01-14] MEDS ORDERED: FUROSEMIDE 20 MG/2 ML VIAL IV PUSH ONE (13:30)
--- NOTE | 2017-01-14 13:39 | HHI.PR ---
Subjective Remarks No fever or chills no chest pain Breast ultrasound shows small collection of fluid this morning, awaiting surgery recommendation Lower extremity edema lymphedema, will stop iv fluid now that sodium and creatinine much improved, will give a touch of Lasix, will switch amlodipine to clonidine Objective Vitals Vital Signs Date Time Temp Pulse Resp B/P Pulse Ox O2 Delivery O2 Flow Rate FiO2 01/14/17 12:00 97.2 96 19 152/90 98 01/14/17 09:57 18 01/14/17 08:00 98.4 91 18 146/91 98 01/14/17 07:00 Room Air 01/14/17 04:00 97.4 90 20 184/111 100 01/14/17 00:09 Room Air 01/14/17 00:00 98.8 82 18 137/71 95 01/13/17 20:00 98.3 93 18 142/94 100 01/13/17 16:12 98.2 112 20 134/85 99 I/O 01/13/17 01/13/17 01/13/17 01/14/17 01/14/17 01/14/17 07:00 15:00 23:00 07:00 15:00 23:00 Intake Total 480 ml 1200 ml Output Total 1800 ml Balance 480 ml 1200 ml -1800 ml Intake Oral 480 ml 1200 ml Output Urine Total 1800 ml # Voids 5 3 # Bowel Movements 2 1 2 Result Diagram: 01/13/17 0656 01/14/17 0813 Objective Remarks GENERAL: This is a well-nourished, well-developed patient, in no apparent distress. SKIN: Warm skin on the left breast, wound VAC applied to the left chest under her axilla HEAD: Atraumatic. Normocephalic. EYES: Pupils equal round and reactive. Extraocular motions intact. No scleral icterus. ENT: Nose without bleeding, or drainage, Airway patent. NECK: Trachea midline. Supple CHEST: Midaxillary wound looks clean, CARDIOVASCULAR: Regular rate and rhythm without murmurs, gallops, or rubs. RESPIRATORY: Fair air entry bilaterally. No wheezes, rales, or rhonchi. GASTROINTESTINAL: Abdomen soft, non-tender, nondistended. Positive bowel sounds MUSCULOSKELETAL: Extremities +3 edema on the LLE, +2 RLE NEUROLOGICAL: Awake and alert. Moves all extremity. Normal speech.no focal neurological deficit Procedures 01/06- I and D with WOund VAC application A/P Problem List: (1) Sepsis ICD Code: A41.9 Status: Acute (2) Left breast abscess ICD Code: N61.1 Status: Acute (3) Hypokalemia ICD Code: E87.6 Status: Acute (4) Diarrhea ICD Code: R19.7 Status: Acute (5) Necrotizing fasciitis ICD Code: M72.6 Status: Acute (6) Lymphedema ICD Code: I89.0 Status: Acute (7) HTN (hypertension) ICD Code: I10 Status: Acute (8) Morbid obesity ICD Code: E66.01 Status: Acute Assessment and Plan 01/08: BLESSING with hypernatremia switch iv fluid to half-normal saline, monitor BMP , wound VAC to be changed tomorrow as per surgery, check renal failure panel including using a pulse in the urine rule out interstitial nephritis 01/09: Creatinine still at 1.6, renal ultrasound bilateral kidney enlargement no other specific pathology, increased urine protein over creatinine ratio, no eosinophil in the UA Continue hydration and avoid nephrotoxins, uncontrolled hypertension we'll increase amlodipine didn't 10 mg 01/10: Creatinine is slowly trending down 1.5 today, wound VAC to suction with changing every 3 days, dressing wet-to-dry per surgery, continue iv and ear vancomycin per ID, pressure in better controlled today will continue monitoring 01/11: Stable, going to have a dressing change today she asked for morphine dose when changing dressing, creatinine trending nicely trending down 1.32 today 01/12: Stable, she is having still hypernatremia 146 with hypokalemia 3.1, creatinine improved to 1.27, will start half-normal saline with 20 ME Q KCl and repeat BMP in a.m. 01/13: Episode of vomiting this morning, the wound care nurse think the left breast is more indurated today we'll asked surgery to see, continue antibiotic per ID recommendation 01/14: Breast ultrasound shows small collection of fluid, awaiting surgery input , discussed with ID she stopped iv Vanco, will continue by mouth Vanco for 2 weeks (ending January 27), creatinine improved to 0.08, as well as sodium, will DC iv fluid. Patient will be given a low dose of Lasix iv to help with her lower extremity edema then will resume on 20 by mouth daily, elevate the legs, AQUILES hose. Reg hypertension: I will stop Norvasc due to her lower Jevity lymphedema (may cause worsening), will start clonidine for now until creatinine improved then patient may go on CAT inhibitor Discussed in length with Dr. Marsh the infectious disease, regarding close follow up with surgery Addendum 3:[address] Fajardo the surgical consultant, discussed with him, he is covering for the weekend, requested to keep patient nothing by mouth after midnight for possible I&D tomorrow A/P: - BLESSING: With hypernatremia, will switch iv fluid to half-normal saline, monitor BMP, pharmacy to continue adjusting Vanco level, repeat BMP in a.m. we' ll check renal failure panel - Sepsis: source Left breast abscess S/P I & D. Continue w/ IV Abx per ID recommendation, appreciate their consult followed her recs for antibiotic. - Necrotizing Fasciitis: Recent admit 11/16-12/20/16 for Sepsis/Nec Fasc to Left Axilla/Chest Wall s/p emergent debridement by Dr. Lainez w/ placement of Wound VAC, currently on [facility]. Following w/ Dr. Lainez as outpatient, last visit w / no complications, next visit 01/10/17. Will consult for further eval. Consult Wound Management for assistance w/ Wound Vac. - C. difficile diarrhea: Symptom improved, on by mouth Vanco with iv per ID, monitor clinical improvement - Lymphedema: Chronic. RLE w/ increased swelling. Previously on Lasix, will resume. Monitor renal function. Wound Consult for Lymphedema Wraps. - Hypokalemia: Replace by mouth/iv as needed, monitor BMP - HTN: Not optimal patient used to be on amlodipine,I will stop Norvasc due to her lower extremity lymphedema (may cause worsening), will start clonidine for now until creatinine improved then patient may go on CAT inhibitor - Morbid Obesity: Chronic. Limited mobility due to body habitus, PT as needed. - DVT Prophylaxis: Mechanical contraindication secondary to severe LE edema. Pharmacologic contraindication secondary to Hemoccult +, high risk for bleeding. Will monitor - Social work for d/c planning as needed. Discharge Planning When cleared by surgery Keesha Del Cid MD Jan 14, 2017 13:39
[2017-01-14] MEDS ORDERED: VANC500I3 PO (13:43)
[2017-01-14] MEDS ORDERED: HYDR-3516 PO (13:43)
[2017-01-14] MEDS ORDERED: CLON.2 PO (13:46)
[2017-01-14 16:00] VITALS: BP 142/86; PULSE 86; RESP 18; TEMP 98.1; O2SAT 98
--- NOTE | 2017-01-14 16:49 | HHI.IDPN ---
Subjective Subjective Remarks co worsening edema, tenderness and induration of her L breast no fever Diarrhea improved only 2 today US showed fluid collection Antibiotics po vanco Allergies: Coded Allergies: No Known Allergies (Unverified , 01/05/17) Objective . Vital Signs Date Time Temp Pulse Resp B/P Pulse Ox O2 Delivery O2 Flow Rate FiO2 01/14/17 16:00 98.1 86 18 142/86 98 01/14/17 12:00 97.2 96 19 152/90 98 01/14/17 09:57 18 01/14/17 08:00 98.4 91 18 146/91 98 01/14/17 07:00 Room Air 01/14/17 04:00 97.4 90 20 184/111 100 01/14/17 00:09 Room Air 01/14/17 00:00 98.8 82 18 137/71 95 01/13/17 20:00 98.3 93 18 142/94 100 01/13/17 01/13/17 01/14/17 15:00 23:00 07:00 Intake Total 1200 ml Output Total 1800 ml Balance 1200 ml -1800 ml Intake Oral 1200 ml Output Urine Total 1800 ml # Voids 3 # Bowel Movements 1 2 . Laboratory Tests Test 01/13/17 06:56 White Blood Count 17.8 TH/MM3 Red Blood Count 3.25 MIL/MM3 Hemoglobin 9.3 GM/DL Hematocrit 28.0 % Mean Corpuscular Volume 86.0 FL Mean Corpuscular Hemoglobin 28.6 PG Mean Corpuscular Hemoglobin 33.2 % Concent Red Cell Distribution Width 17.6 % Platelet Count 395 TH/MM3 Mean Platelet Volume 6.8 FL Neutrophils (%) (Auto) 82.7 % Lymphocytes (%) (Auto) 10.1 % Monocytes (%) (Auto) 6.4 % Eosinophils (%) (Auto) 0.5 % Basophils (%) (Auto) 0.3 % Neutrophils # (Auto) 14.8 TH/MM3 Lymphocytes # (Auto) 1.8 TH/MM3 Monocytes # (Auto) 1.1 TH/MM3 Eosinophils # (Auto) 0.1 TH/MM3 Basophils # (Auto) 0.0 TH/MM3 CBC Comment DIFF FINAL Differential Comment Laboratory Tests Test 01/13/17 01/14/17 06:56 08:13 Sodium Level 147 MEQ/L 142 MEQ/L Potassium Level 3.4 MEQ/L 3.5 MEQ/L Chloride Level 115 MEQ/L 112 MEQ/L Carbon Dioxide Level 24.4 MEQ/L 23.1 MEQ/L Anion Gap 8 MEQ/L 7 MEQ/L Blood Urea Nitrogen 9 MG/DL 10 MG/DL Creatinine 1.14 MG/DL 1.08 MG/DL Estimat Glomerular Filtration 65 ML/MIN 69 ML/MIN Rate Random Glucose 102 MG/DL 91 MG/DL Calcium Level 8.3 MG/DL 8.5 MG/DL Imaging Last Impressions Breast Ultrasound 01/14/17 0000 Signed Impressions: Service Date/Time: Saturday, January 14, 2017 07:57 - CONCLUSION: 1. Diffuse skin thickening, edema and a small amount of fluid in the left breast as described above. Abraham Mata MD Renal Ultrasound 01/08/17 0000 Signed Impressions: Service Date/Time: Sunday, January 08, 2017 18:32 - CONCLUSION: Symmetric enlarged kidneys bilaterally. No focal lesions seen.. Kulwinder Fish MD Chest X-Ray 01/05/17 2225 Signed Impressions: Service Date/Time: December 22:37 - CONCLUSION: 1. Focal consolidation within the right medial lung base. Infiltrate versus rounded atelectasis. Followup study suggested to document resolution. 2. Cardiomegaly. Kulwinder Chaudhary Jr., MD Physical Exam CONSTITUTIONAL/GENERAL: This is a morbidly obese patient, in no apparent distress. SKIN: L breast more edematous and again tender to palpation , + mild erythema Diffuse induraion no area of fluctuance Small wound in LOQ clean, min serosang dc HEAD: Atraumatic. Normocephalic. EYES: Pupils equal and round and reactive. Extraocular motions intact. No scleral icterus. No injection or drainage. Fundi not examined. CARDIOVASCULAR: Regular rate and rhythm without murmurs, gallops, or rubs. RESPIRATORY/CHEST: Symmetric, unlabored respirations. Clear to auscultation. GASTROINTESTINAL: Abdomen soft, non-tender, nondistended. Bowel sounds present. MUSCULOSKELETAL: Extremities without clubbing, cyanosis, or edema. NEUROLOGICAL: Awake and alert. Non focal Assessment & Plan Remarks Nec fas L axilla, resolved abscess L breast; clx with skin everett ? new abscess: US with new fluid dw Dr Fajardo - might need to have I+D tomorrow - received > 1 week of vanco, clinically worse Diarrhea with recent abx exposure C.diff + - hypervirulent 027 strain - - clinically resolved Mild renal insufficiency ? vanco contributing - will reastart on broad spectrum abx: zosyn, vanco - cont po vanco x 2 wks after all abx stopped - fu op clx and adjust abx dw Tana Hernández,Rachel Khoury MD Jan 14, 2017 16:49
[2017-01-14] MEDS ORDERED: Vancomycin Consult Pharmacy 1 EA OTHER SCH (17:00)
[2017-01-14] MEDS: MORPHINE SULFATE 4 MG/ML INJ IV PRN (17:07)
[2017-01-14] MEDS: PIPERACIL-TAZO 3.375 GM PREMIX 50 ML IV SCH (18:19)
[2017-01-14] MEDS: traZODone HCL 50 MG TAB PO SCH (20:29)
[2017-01-14] MEDS: cloNIDine HCL 0.2 MG TAB PO SCH (20:29)
[2017-01-14 22:20] VITALS: BP 123/82; PULSE 95; RESP 20; TEMP 99.1; O2SAT 98
[2017-01-14] MEDS: VANCOMYCIN INJ 1,500 MG in SODIUM CHLORID 0.9% 500 ML INJ 500 ML IV SCH (22:57)
[2017-01-15] MEDS: VANCOMYCIN 500 MG VIAL (FOR ORAL USE ONLY) PO SCH ×5 (00:43→23:39)
[2017-01-15] MEDS: METOPROLOL TARTRATE 50 MG TAB PO SCH ×3 (00:43→17:01)
[2017-01-15] MEDS: PIPERACIL-TAZO 3.375 GM PREMIX 50 ML IV SCH ×4 (00:44→17:01)
[2017-01-15 01:15] VITALS: BP 116/68; PULSE 102; RESP 18; TEMP 95; O2SAT 98
[2017-01-15 04:21] VITALS: BP 125/78; PULSE 83; RESP 20; TEMP 98.2; O2SAT 93
[2017-01-15] MEDS: hydrALAZINE HCL 25 MG TAB PO SCH ×3 (05:51→23:39)
[2017-01-15] MEDS: ACETAMINOPHEN/HYDROcodone 325 MG/5 MG TAB PO PRN ×4 (06:00→23:43)
[2017-01-15] MEDS: SODIUM CHLORIDE 0.9% FLUSH 10 ML FLUSH IV FLUSH SCH ×2 (07:56→20:50)
[2017-01-15] MEDS: FUROSEMIDE 20 MG TAB PO SCH (07:57)
[2017-01-15] MEDS: PANTOPRAZOLE SODIUM 40 MG VIAL IV PUSH SCH ×2 (07:57→20:49)
[2017-01-15] MEDS: cloNIDine HCL 0.2 MG TAB PO SCH ×2 (07:57→20:49)
[2017-01-15 08:00] VITALS: BP 132/78; PULSE 82; RESP 18; TEMP 96.6; O2SAT 100
--- NOTE | 2017-01-15 11:11 | HHI.PR ---
Subjective Remarks Afebrile, no nausea or vomiting today No diarrhea, resting comfortably in bed D/W surgeon Dr. Fernandez, plan for ultrasound-guided needle aeration of the fluid , ID resumed broad coverage antibiotic Objective Vitals Vital Signs Date Time Temp Pulse Resp B/P Pulse Ox O2 Delivery O2 Flow Rate FiO2 01/15/17 08:00 96.6 82 18 132/78 100 01/15/17 07:00 Room Air 01/15/17 04:21 98.2 83 20 125/78 93 01/15/17 01:15 95.0 102 18 116/68 98 01/14/17 23:34 Room Air 01/14/17 22:20 99.1 95 20 123/82 98 01/14/17 16:00 98.1 86 18 142/86 98 01/14/17 12:00 97.2 96 19 152/90 98 I/O 01/14/17 01/14/17 01/14/17 01/15/17 01/15/17 01/15/17 07:00 15:00 23:00 07:00 15:00 23:00 Intake Total 780 ml Output Total 1800 ml Balance -1800 ml 780 ml Intake Oral 780 ml Output Urine Total 1800 ml # Voids 4 1 # Bowel Movements 2 3 1 Result Diagram: 01/13/17 0656 01/14/17 0813 Objective Remarks GENERAL: This is a well-nourished, well-developed patient, in no apparent distress. SKIN: Warm skin on the left breast, wound VAC applied to the left chest under her axilla HEAD: Atraumatic. Normocephalic. EYES: Pupils equal round and reactive. Extraocular motions intact. No scleral icterus. ENT: Nose without bleeding, or drainage, Airway patent. NECK: Trachea midline. Supple CHEST: Midaxillary wound looks clean, CARDIOVASCULAR: Regular rate and rhythm without murmurs, gallops, or rubs. RESPIRATORY: Fair air entry bilaterally. No wheezes, rales, or rhonchi. GASTROINTESTINAL: Abdomen soft, non-tender, nondistended. Positive bowel sounds MUSCULOSKELETAL: Extremities +3 edema on the LLE, +2 RLE NEUROLOGICAL: Awake and alert. Moves all extremity. Normal speech.no focal neurological deficit Procedures 01/06- I and D with WOund VAC application A/P Problem List: (1) Sepsis ICD Code: A41.9 Status: Acute (2) Left breast abscess ICD Code: N61.1 Status: Acute (3) Hypokalemia ICD Code: E87.6 Status: Acute (4) Diarrhea ICD Code: R19.7 Status: Acute (5) Necrotizing fasciitis ICD Code: M72.6 Status: Acute (6) Lymphedema ICD Code: I89.0 Status: Acute (7) HTN (hypertension) ICD Code: I10 Status: Acute (8) Morbid obesity ICD Code: E66.01 Status: Acute Assessment and Plan 01/08: BLESSING with hypernatremia switch iv fluid to half-normal saline, monitor BMP , wound VAC to be changed tomorrow as per surgery, check renal failure panel including using a pulse in the urine rule out interstitial nephritis 01/09: Creatinine still at 1.6, renal ultrasound bilateral kidney enlargement no other specific pathology, increased urine protein over creatinine ratio, no eosinophil in the UA Continue hydration and avoid nephrotoxins, uncontrolled hypertension we'll increase amlodipine didn't 10 mg 01/10: Creatinine is slowly trending down 1.5 today, wound VAC to suction with changing every 3 days, dressing wet-to-dry per surgery, continue iv and ear vancomycin per ID, pressure in better controlled today will continue monitoring 01/11: Stable, going to have a dressing change today she asked for morphine dose when changing dressing, creatinine trending nicely trending down 1.32 today 01/12: Stable, she is having still hypernatremia 146 with hypokalemia 3.1, creatinine improved to 1.27, will start half-normal saline with 20 ME Q KCl and repeat BMP in a.m. 01/13: Episode of vomiting this morning, the wound care nurse think the left breast is more indurated today we'll asked surgery to see, continue antibiotic per ID recommendation 01/14: Breast ultrasound shows small collection of fluid, awaiting surgery input , discussed with ID she stopped iv Vanco, will continue by mouth Vanco for 2 weeks (ending January 27), creatinine improved to 0.08, as well as sodium, will DC iv fluid. Patient will be given a low dose of Lasix iv to help with her lower extremity edema then will resume on 20 by mouth daily, elevate the legs, AQUILES hose. Reg hypertension: I will stop Norvasc due to her lower Jevity lymphedema (january cause worsening), will start clonidine for now until creatinine improved then patient may go on CAT inhibitor Discussed in length with Dr. Marsh the infectious disease, regarding close follow up with surgery Addendum 3:[address] Fajardo the surgical elastic knitter hand frame, discussed with him, he is covering for the weekend, requested to keep patient nothing by mouth after midnight for possible I&D tomorrow 01/15: seen the pt together with the surgeon , D/W him , no plan for I& D, US guided aspiration will be the plan , ID resumed broad coverage antibiotic A/P: - BLESSING with hypernatremia: Resolving , status post iv fluid, no eosinophil in the urine unlikely related to Vanco - Sepsis: source Left breast abscess S/P I & D. Continue w/ IV Abx per ID recommendation, appreciate their consult followed her recs for antibiotic. - Necrotizing Fasciitis: Recent admit 11/16-12/20/16 for Sepsis/Nec Fasc to Left Axilla/Chest Wall s/p emergent debridement by Dr. Lainez w/ placement of Wound VAC, currently on [facility]. Following w/ Dr. Lainez as outpatient, last visit w / no complications, next visit 01/10/17. Will consult for further eval. Consult Wound Management for assistance w/ Wound Vac. - C. difficile diarrhea: Symptom improved, on by mouth Vanco with iv per ID, monitor clinical improvement - Lymphedema: Chronic. RLE w/ increased swelling. Previously on Lasix, will resume. Monitor renal function. Wound Consult for Lymphedema Wraps. - Hypokalemia: Replace by mouth/iv as needed, monitor BMP - HTN: Not optimal patient used to be on amlodipine,I will stop Norvasc due to her lower extremity lymphedema (may cause worsening), will start clonidine for now until creatinine improved then patient may go on CAT inhibitor - Morbid Obesity: Chronic. Limited mobility due to body habitus, PT as needed. - DVT Prophylaxis: Mechanical contraindication secondary to severe LE edema. Pharmacologic contraindication secondary to Hemoccult +, high risk for bleeding. Will monitor - Social work for d/c planning as needed. Discharge Planning When cleared by surgery Keesha Del Cid MD Jan 15, 2017 11:11
[2017-01-15] MEDS: ONDANSETRON HCL 4 MG/2 ML VIAL IVP PRN ×2 (11:45→19:18)
--- NOTE | 2017-01-15 11:46 | HHI.PR ---
Subjective Subjective Notes Asked to see pt. again. Left breast painful Objective Vitals/I&O Vital Signs Date Time Temp Pulse Resp B/P Pulse Ox O2 Delivery O2 Flow Rate FiO2 01/15/17 08:00 96.6 82 18 132/78 100 01/15/17 07:00 Room Air Narrative Exam Previous curvilinear incision well-healed; axilla benign Left breast with periareolar erythema; no definite mass can be palpated A/P Assessment and Plan Breast abscess 7 o'clock position by U/S 2 x 1.6 cm size that is not able to be palpated by physical exam Plan: Recommend U/S guided aspiration with culture, as surgical intervention will be blind and require very large incision just to find this small abscess. Discussed with medical team. Rigo Fernandez MD Jan 15, 2017 11:46
[2017-01-15 12:00] VITALS: BP 118/80; PULSE 71; RESP 19; TEMP 96.5; O2SAT 100
[2017-01-15] MEDS: MORPHINE SULFATE 4 MG/ML INJ IV PRN (13:40)
[2017-01-15] MEDS ORDERED: PHARMACY ORDERED LAB ONE (13:45)
[2017-01-15] MEDS: VANCOMYCIN INJ 1,500 MG in SODIUM CHLORID 0.9% 500 ML INJ 500 ML IV SCH (14:15)
[2017-01-15 15:53] VITALS: BP 124/86; PULSE 84; RESP 19; TEMP 97.1; O2SAT 100
[2017-01-15 20:22] VITALS: BP 138/84; PULSE 89; RESP 21; TEMP 97.8; O2SAT 98
[2017-01-15] MEDS: traZODone HCL 50 MG TAB PO SCH (23:39)
[2017-01-16] MEDS: METOPROLOL TARTRATE 50 MG TAB PO SCH ×3 (00:45→17:01)
[2017-01-16] MEDS: PIPERACIL-TAZO 3.375 GM PREMIX 50 ML IV SCH ×4 (00:45→17:02)
[2017-01-16 01:22] VITALS: BP 104/64; PULSE 94; RESP 21; TEMP 97.8; O2SAT 98
[2017-01-16 05:36] VITALS: BP 112/64; PULSE 82; RESP 19; TEMP 97.5; O2SAT 98
[2017-01-16] MEDS: VANCOMYCIN 500 MG VIAL (FOR ORAL USE ONLY) PO SCH ×3 (05:45→17:02)
[2017-01-16] MEDS: hydrALAZINE HCL 25 MG TAB PO SCH ×3 (05:45→21:58)
[2017-01-16] MEDS: cloNIDine HCL 0.2 MG TAB PO SCH ×2 (08:40→21:58)
[2017-01-16] MEDS: FUROSEMIDE 20 MG TAB PO SCH (08:40)
[2017-01-16] MEDS: SODIUM CHLORIDE 0.9% FLUSH 10 ML FLUSH IV FLUSH SCH ×2 (08:40→21:00)
[2017-01-16 08:41] VITALS: BP 122/75; PULSE 80; RESP 20; TEMP 97.7; O2SAT 98
[2017-01-16] MEDS: PANTOPRAZOLE SODIUM 40 MG VIAL IV PUSH SCH ×2 (08:41→21:58)
[2017-01-16] MEDS: ACETAMINOPHEN/HYDROcodone 325 MG/5 MG TAB PO PRN ×4 (08:53→22:00)
[2017-01-16] MEDS ORDERED: PHARMACY ORDERED LAB ONE (11:45)
[2017-01-16] MEDS: ONDANSETRON HCL 4 MG/2 ML VIAL IVP PRN (11:56)
[2017-01-16 12:51] VITALS: BP 121/75; PULSE 76; RESP 20; TEMP 97.6; O2SAT 100
[2017-01-16] MEDS: VANCOMYCIN INJ 1,500 MG in SODIUM CHLORID 0.9% 500 ML INJ 500 ML IV SCH (12:57)
[2017-01-16] MEDS ORDERED: SODIUM CHLORID 0.9% 500 ML IV PRN (15:00)
[2017-01-16] MEDS ORDERED: INSULIN HUMAN REGULAR 1,000 UNITS/10 ML VIAL SQ PRN (15:00)
[2017-01-16] MEDS ORDERED: CHLORHEXIDINE GLUCONATE 2 % 1 PACK (2 CLOTHS) TOPICAL PRN (15:00)
[2017-01-16] MEDS ORDERED: POVIDONE IODINE 5% (ANTISEPSIS KIT) 4 APPLICATIONS EACH NARE PRN (15:00)
[2017-01-16] MEDS ORDERED: LACTATED RINGER'S 1000 ML IV PRN (15:00)
[2017-01-16] MEDS ORDERED: METOPROLOL TARTRATE 25 MG TAB PO PRN (15:00)
--- NOTE | 2017-01-16 15:33 | HHI.PR ---
Subjective Remarks Resting in bed staple comfortably Plan for ultrasound-guided breast needle aspiration ID and surgery following Objective Vitals Vital Signs Date Time Temp Pulse Resp B/P Pulse Ox O2 Delivery O2 Flow Rate FiO2 01/16/17 12:51 97.6 76 20 121/75 100 01/16/17 09:05 Room Air 01/16/17 08:41 97.7 80 20 122/75 98 01/16/17 05:36 97.5 82 19 112/64 98 01/16/17 01:22 97.8 94 21 104/64 98 01/16/17 00:45 Room Air 01/15/17 20:22 97.8 89 21 138/84 98 01/15/17 15:53 97.1 84 19 124/86 100 I/O 01/15/17 01/15/17 01/15/17 01/16/17 01/16/17 01/16/17 07:00 15:00 23:00 07:00 15:00 23:00 Intake Total 480 ml 240 ml Balance 480 ml 240 ml Intake Oral 480 ml 240 ml # Voids 1 0 # Bowel Movements 1 0 2 Result Diagram: 01/13/17 0656 01/14/17 0813 Objective Remarks GENERAL: This is a well-nourished, well-developed patient, in no apparent distress. SKIN: Warm skin on the left breast, wound VAC applied to the left chest under her axilla HEAD: Atraumatic. Normocephalic. EYES: Pupils equal round and reactive. Extraocular motions intact. No scleral icterus. ENT: Nose without bleeding, or drainage, Airway patent. NECK: Trachea midline. Supple CHEST: Midaxillary wound looks clean, CARDIOVASCULAR: Regular rate and rhythm without murmurs, gallops, or rubs. RESPIRATORY: Fair air entry bilaterally. No wheezes, rales, or rhonchi. GASTROINTESTINAL: Abdomen soft, non-tender, nondistended. Positive bowel sounds MUSCULOSKELETAL: Extremities +2 edema on the LLE, +2 RLE NEUROLOGICAL: Awake and alert. Moves all extremity. Normal speech.no focal neurological deficit Procedures 01/06- I and D with WOund VAC application A/P Problem List: (1) Sepsis ICD Code: A41.9 Status: Acute (2) Left breast abscess ICD Code: N61.1 Status: Acute (3) Hypokalemia ICD Code: E87.6 Status: Acute (4) Diarrhea ICD Code: R19.7 Status: Acute (5) Necrotizing fasciitis ICD Code: M72.6 Status: Acute (6) Lymphedema ICD Code: I89.0 Status: Acute (7) HTN (hypertension) ICD Code: I10 Status: Acute (8) Morbid obesity ICD Code: E66.01 Status: Acute Assessment and Plan 01/08: BLESSING with hypernatremia switch iv fluid to half-normal saline, monitor BMP , wound VAC to be changed tomorrow as per surgery, check renal failure panel including using a pulse in the urine rule out interstitial nephritis 01/09: Creatinine still at 1.6, renal ultrasound bilateral kidney enlargement no other specific pathology, increased urine protein over creatinine ratio, no eosinophil in the UA Continue hydration and avoid nephrotoxins, uncontrolled hypertension we'll increase amlodipine didn't 10 mg 01/10: Creatinine is slowly trending down 1.5 today, wound VAC to suction with changing every 3 days, dressing wet-to-dry per surgery, continue iv and ear vancomycin per ID, pressure in better controlled today will continue monitoring 01/11: Stable, going to have a dressing change today she asked for morphine dose when changing dressing, creatinine trending nicely trending down 1.32 today 01/12: Stable, she is having still hypernatremia 146 with hypokalemia 3.1, creatinine improved to 1.27, will start half-normal saline with 20 ME Q KCl and repeat BMP in a.m. 01/13: Episode of vomiting this morning, the wound care nurse think the left breast is more indurated today we'll asked surgery to see, continue antibiotic per ID recommendation 01/14: Breast ultrasound shows small collection of fluid, awaiting surgery input , discussed with ID she stopped iv Vanco, will continue by mouth Vanco for 2 weeks (ending January 27), creatinine improved to 0.08, as well as sodium, will DC iv fluid. Patient will be given a low dose of Lasix iv to help with her lower extremity edema then will resume on 20 by mouth daily, elevate the legs, AQUILES hose. Reg hypertension: I will stop Norvasc due to her lower Jevity lymphedema (may cause worsening), will start clonidine for now until creatinine improved then patient may go on CAT inhibitor Discussed in length with Dr. Marsh the infectious disease, regarding close follow up with surgery Addendum 3:[address] Fajardo the surgical corsetier, discussed with him, he is covering for the weekend, requested to keep patient nothing by mouth after midnight for possible I&D tomorrow 01/15: seen the pt together with the surgeon , D/W him , no plan for I& D, US guided aspiration will be the plan , ID resumed broad coverage antibiotic 01/16: Plan for ultrasound-guided breast needle aspiration, surgery and ID following, continue iv antibiotic per ID A/P: - BLESSING with hypernatremia: Resolving , status post iv fluid, no eosinophil in the urine unlikely related to Vanco - Sepsis: source Left breast abscess S/P I & D. Continue w/ IV Abx per ID recommendation, appreciate their consult followed her recs for antibiotic. - Necrotizing Fasciitis: Recent admit 11/16-12/20/16 for Sepsis/Nec Fasc to Left Axilla/Chest Wall s/p emergent debridement by Dr. Lainez w/ placement of Wound VAC, currently on [facility]. Following w/ Dr. Lainez as outpatient, last visit w / no complications, next visit 01/10/17. Will consult for further eval. Consult Wound Management for assistance w/ Wound Vac. - C. difficile diarrhea: Symptom improved, on by mouth Vanco with iv per ID, monitor clinical improvement - Lymphedema: Chronic. RLE w/ increased swelling. Previously on Lasix, will resume. Monitor renal function. Wound Consult for Lymphedema Wraps. - Hypokalemia: Replace by mouth/iv as needed, monitor BMP - HTN: Not optimal patient used to be on amlodipine,I will stop Norvasc due to her lower extremity lymphedema (may cause worsening), will start clonidine for now until creatinine improved then patient may go on CAT inhibitor - Morbid Obesity: Chronic. Limited mobility due to body habitus, PT as needed. - DVT Prophylaxis: Mechanical contraindication secondary to severe LE edema. Pharmacologic contraindication secondary to Hemoccult +, high risk for bleeding. Will monitor - Social work for d/c planning as needed. Discharge Planning When cleared by surgery Keesha Del Cid MD January 16, 2017 15:33
--- NOTE | 2017-01-16 16:12 | HHI.PR ---
Subjective Subjective Notes Resting in bed Concerned about RIGHT axillary and possibility of new abscess Objective Vitals/I&O Vital Signs Date Time Temp Pulse Resp B/P Pulse Ox O2 Delivery O2 Flow Rate FiO2 01/16/17 12:51 97.6 76 20 121/75 100 01/16/17 09:05 Room Air Labs Laboratory Tests Test 01/16/17 11:50 Vancomycin Level Trough 17.8 Cardiovascular: Regular Lungs: Clear Abdomen: Non-distended, Non-tender Narrative Exam LEFT breast---small indurated hard fluid collection at 4 o'clock position LEFT axillary--- open wound with good granulation of tissue; 3 areas of tunneling RIGHT axillary --- spontaneously draining abscess with copious purulent thick fluid draining from opening A/P Assessment and Plan 36 year old female s/p NG of LEFT breast and axillary; re admitted with small LEFT breast abscess (s/p I&D) -Wet to dry dressing to LEFT breast -US guided drainage today for LEFT breast and RIGHT axillary -Wet to dry packing dressing to RIGHT axillary -Pain control -Regular diet Attending Statement patient seen at bedside new right axilla abscess with packing left axilla continue wound care Attestation The exam, history, and the medical decision-making described in the above note were completed with the assistance of the mid-level provider. I reviewed and agree with the findings presented. I attest that I had a [id number] encounter with the patient on the same day, and personally performed and documented my assessment and findings in the medical record. Priyanka Ocasio January 16, 2017 16:11 Rubin Mayes MD January 26, 2017 21:40
[2017-01-16 16:57] VITALS: BP 136/88; PULSE 87; RESP 18; TEMP 97.8; O2SAT 100
--- NOTE | 2017-01-16 17:18 | RADRPT ---
EXAM DATE/TIME: 01/16/2017 15:28 [facility] COMPARISON: US BREAST LEFT, January 14, 2017, 7:57. FINDINGS: Diffuse edema left breast. No fluid collection to drain. CONCLUSION: Left breast edema/soft tissue swelling. No drainable abscess. Obie Mccloud MD on January 16, 2017 at 17:16 Board Certified Radiologist. This report was verified electronically.
--- NOTE | 2017-01-16 17:19 | RADRPT ---
EXAM DATE/TIME: 01/16/2017 15:27 [facility] COMPARISON: No previous studies available for comparison. INDICATIONS : Right axilla leaking. MEDICAL HISTORY : Hypertension. Neck pain. Ovarian cysts. Arthritis. C.Diff. Chronic lymphedema. SURGICAL HISTORY : Left chest wall debridement with VAC. ENCOUNTER: Initial ACUITY: 1 day PAIN SCORE: 7/10 LOCATION: Right axilla. FLUID: Total volume of 5 cc of cloudy, red fluid was removed. Fluid was sent to lab for ordered studies. Post procedure scanning reveals no hematoma or other complication. TECHNIQUE: 1. Ultrasound guidance for needle aspiration. 2. Aspiration. The risks, benefits, and alternatives to ultrasound guided aspiration were explained to the patient i n detail including the risk of bleeding and infection. Written and verbal informed consent was obtai nestor. With the patient on the ultrasound table, ultrasound imaging was used to select the most appropriate approach for aspiration. Overlying skin was prepped and draped in the usual sterile fashion and with local anesthetic a dermatotomy was made with an 11 blade scalpel. A catheter was introduced into th e cavity and fluid was collected. CONCLUSION: Ultrasound guided aspiration of right axillary abscess. Approximately 5 cc of bloody pus. Residual christopher perficial abscess remains as the remaining fluid was too viscus to drain. Obie Mccloud MD on January 16, 2017 at 17:17 Board Certified Radiologist. This report was verified electronically.
[2017-01-16] MEDS ORDERED: PILL SPLITTER OTHER PRN (17:45)
[2017-01-16 18:43] LABS: AUTOMATED NEUTROPHIL # 16.1 TH/MM3 (1.8-7.7); BASOPHIL # 0.1 TH/MM3 (0-0.2); BASOPHIL % 0.4 % (0.0-2.0); EOSINOPHIL # 0.6 TH/MM3 (0-0.4); EOSINOPHIL % 3.2 % (0.0-4.0); HEMATOCRIT 28.7 % (35.0-46.0); HEMO FLAGS DIFF FINAL; LYMPH % 8.1 % (9.0-44.0); LYMPHOCYTE # 1.6 TH/MM3 (1.0-4.8); MEAN CELL VOLUME 87.5 FL (80.0-100.0); MEAN CORPUSCULAR HEMOGLOBIN 28.2 PG (27.0-34.0); MEAN CORPUSCULAR HGB CONC 32.2 % (32.0-36.0); MONO % 6.3 % (0.0-8.0); PLATELET COUNT 411 TH/MM3 (150-450); RED BLOOD COUNT 3.29 MIL/MM3 (4.00-5.30); RED CELL DISTRIBUTION WIDTH 18.4 % (11.6-17.2); WHITE BLOOD COUNT 19.6 TH/MM3 (4.0-11.0)
[2017-01-16 20:00] VITALS: BP 135/74; PULSE 92; RESP 18; TEMP 98.1; O2SAT 100
[2017-01-16] MEDS ORDERED: CYCLOBENZAPRINE HCL 10 MG TAB PO PRN (21:45)
[2017-01-16] MEDS: traZODone HCL 50 MG TAB PO SCH (21:58)
[2017-01-17] VITALS (7 sets, daily range): BP systolic 123–147; BP diastolic 69–82; PULSE 79–93; RESP 16–19; TEMP 96.3–98.8; O2SAT 99–100
[2017-01-17] MEDS: METOPROLOL TARTRATE 50 MG TAB PO SCH ×3 (01:27→16:27)
[2017-01-17] MEDS: PIPERACIL-TAZO 3.375 GM PREMIX 50 ML IV SCH ×3 (01:27→16:28)
[2017-01-17] MEDS: VANCOMYCIN 500 MG VIAL (FOR ORAL USE ONLY) PO SCH ×4 (01:27→16:27)
[2017-01-17] MEDS: ACETAMINOPHEN/HYDROcodone 325 MG/5 MG TAB PO PRN ×5 (01:57→21:52)
[2017-01-17] MEDS: hydrALAZINE HCL 25 MG TAB PO SCH ×3 (06:27→21:53)
[2017-01-17] MEDS: VANCOMYCIN INJ 1,500 MG in SODIUM CHLORID 0.9% 500 ML INJ 500 ML IV SCH (08:04)
[2017-01-17] MEDS: FUROSEMIDE 20 MG TAB PO SCH (08:05)
[2017-01-17] MEDS: PANTOPRAZOLE SODIUM 40 MG VIAL IV PUSH SCH ×2 (08:05→21:52)
[2017-01-17] MEDS: SODIUM CHLORIDE 0.9% FLUSH 10 ML FLUSH IV FLUSH SCH ×2 (08:05→21:54)
[2017-01-17] MEDS: cloNIDine HCL 0.2 MG TAB PO SCH ×2 (08:06→21:52)
[2017-01-17] MEDS: ONDANSETRON HCL 4 MG/2 ML VIAL IVP PRN (08:17)
[2017-01-17 10:21] LABS: BASOPHIL % 0.3 % (0.0-2.0); EOSINOPHIL # 0.3 TH/MM3 (0-0.4); EOSINOPHIL % 2.1 % (0.0-4.0); HEMATOCRIT 31.8 % (35.0-46.0); HEMO FLAGS DIFF FINAL; LYMPH % 9.3 % (9.0-44.0); LYMPHOCYTE # 1.5 TH/MM3 (1.0-4.8); MEAN CELL VOLUME 87.7 FL (80.0-100.0); MEAN CORPUSCULAR HEMOGLOBIN 27.4 PG (27.0-34.0); MEAN CORPUSCULAR HGB CONC 31.2 % (32.0-36.0); MONO % 6.6 % (0.0-8.0); NEUT % 81.7 % (16.0-70.0); PLATELET COUNT 412 TH/MM3 (150-450); RED BLOOD COUNT 3.63 MIL/MM3 (4.00-5.30); WHITE BLOOD COUNT 15.9 TH/MM3 (4.0-11.0)
--- NOTE | 2017-01-17 11:22 | HHI.PR ---
Subjective Subjective Notes Up to BSC Wants to shower Objective Vitals/I&O Vital Signs Date Time Temp Pulse Resp B/P Pulse Ox O2 Delivery O2 Flow Rate FiO2 01/17/17 08:19 Room Air 01/17/17 08:00 96.3 82 17 127/80 99 Labs Laboratory Tests Test 01/16/17 01/16/17 01/17/17 11:50 18:27 09:20 Vancomycin Level Trough 17.8 White Blood Count 19.6 15.9 Red Blood Count 3.29 3.63 Hemoglobin 9.3 9.9 Hematocrit 28.7 31.8 Mean Corpuscular Volume 87.5 87.7 Mean Corpuscular Hemoglobin 28.2 27.4 Mean Corpuscular Hemoglobin 32.2 31.2 Concent Red Cell Distribution Width 18.4 18.0 Platelet Count 411 412 Mean Platelet Volume 7.4 7.2 Neutrophils (%) (Auto) 82.0 81.7 Lymphocytes (%) (Auto) 8.1 9.3 Monocytes (%) (Auto) 6.3 6.6 Eosinophils (%) (Auto) 3.2 2.1 Basophils (%) (Auto) 0.4 0.3 Neutrophils # (Auto) 16.1 13.0 Lymphocytes # (Auto) 1.6 1.5 Monocytes # (Auto) 1.2 1.0 Eosinophils # (Auto) 0.6 0.3 Basophils # (Auto) 0.1 0.0 CBC Comment DIFF FINAL DIFF FINAL Differential Comment Creatinine 1.25 Estimat Glomerular Filtration 59 Rate Date/Time Procedure Status Source Growth 01/16/17 16:08 Gram Stain - Final Resulted Abscess Breast 01/16/17 16:08 Wound Culture Resulted Abscess Breast Pending 01/16/17 16:08 Acid Fast Stain Received Abscess Scalp Pending 01/16/17 16:08 Mycobacterial Culture Received Abscess Scalp Pending Cardiovascular: Regular Lungs: Clear Abdomen: Non-distended, Non-tender Narrative Exam LEFT breast---small indurated hard fluid collection at 4 o'clock position LEFT axillary--- open wound with good granulation of tissue; 3 areas of tunneling RIGHT axillary --- spontaneously draining abscess with dry gauze over; minimal drainage A/P Assessment and Plan 36 year old female s/p NG of LEFT breast and axillary; re admitted with small LEFT breast abscess (s/p I&D) -Okay to shower between dressing changes -Wet to dry dressing to LEFT breast -Iodoform packing to RIGHT axilla -Pain control -Regular diet -Await culture results---ID following Attending Statement patient seen at bedside no fevers c/w dressing changes ID recs Attestation The exam, history, and the medical decision-making described in the above note were completed with the assistance of the mid-level provider. I reviewed and agree with the findings presented. I attest that I had a [id number] encounter with the patient on the same day, and personally performed and documented my assessment and findings in the medical record. Priyanka Ocasio January 17, 2017 11:22 Rubin Mayes MD January 24, 2017 22:21
--- NOTE | 2017-01-17 15:08 | HHI.PR ---
Subjective Remarks Patient resting in bed, she complained of muscle spasm, reported she usually takes 10 mg 3 times a day given by her PCP Breast aspirated fluid showing gram-negative organism patient on Vanco we will check with ID for any change in antibiotic Objective Vitals Vital Signs Date Time Temp Pulse Resp B/P Pulse Ox O2 Delivery O2 Flow Rate FiO2 01/17/17 12:00 97.1 93 17 130/74 100 01/17/17 08:19 Room Air 01/17/17 08:00 96.3 82 17 127/80 99 01/17/17 04:40 97.6 81 18 123/69 100 01/17/17 00:00 98.8 89 18 134/76 100 01/16/17 20:00 98.1 92 18 135/74 100 01/16/17 16:57 97.8 87 18 136/88 100 I/O 01/16/17 01/16/17 01/16/17 01/17/17 01/17/17 01/17/17 07:00 15:00 23:00 07:00 15:00 23:00 Intake Total 240 ml 900 ml 1200 ml 480 ml Balance 240 ml 900 ml 1200 ml 480 ml Intake Oral 240 ml 900 ml 1200 ml 480 ml # Voids 0 2 1 3 # Bowel Movements 0 2 2 1 2 Result Diagram: 01/17/1791901/17/1720 Objective Remarks GENERAL: This is a well-nourished, well-developed patient, in no apparent distress. SKIN: Warm skin on the left breast, wound VAC applied to the left chest under her axilla HEAD: Atraumatic. Normocephalic. EYES: Pupils equal round and reactive. Extraocular motions intact. No scleral icterus. ENT: Nose without bleeding, or drainage, Airway patent. NECK: Trachea midline. Supple CHEST: Midaxillary wound looks clean, CARDIOVASCULAR: Regular rate and rhythm without murmurs, gallops, or rubs. RESPIRATORY: Fair air entry bilaterally. No wheezes, rales, or rhonchi. GASTROINTESTINAL: Abdomen soft, non-tender, nondistended. Positive bowel sounds MUSCULOSKELETAL: Extremities +2 edema on the LLE, +2 RLE NEUROLOGICAL: Awake and alert. Moves all extremity. Normal speech.no focal neurological deficit Procedures 01/06- I and D with WOund VAC application A/P Problem List: (1) Sepsis ICD Code: A41.9 Status: Acute (2) Left breast abscess ICD Code: N61.1 Status: Acute (3) Hypokalemia ICD Code: E87.6 Status: Acute (4) Diarrhea ICD Code: R19.7 Status: Acute (5) Necrotizing fasciitis ICD Code: M72.6 Status: Acute (6) Lymphedema ICD Code: I89.0 Status: Acute (7) HTN (hypertension) ICD Code: I10 Status: Acute (8) Morbid obesity ICD Code: E66.01 Status: Acute Assessment and Plan 01/08: BLESSING with hypernatremia switch iv fluid to half-normal saline, monitor BMP , wound VAC to be changed tomorrow as per surgery, check renal failure panel including using a pulse in the urine rule out interstitial nephritis 01/09: Creatinine still at 1.6, renal ultrasound bilateral kidney enlargement no other specific pathology, increased urine protein over creatinine ratio, no eosinophil in the UA Continue hydration and avoid nephrotoxins, uncontrolled hypertension we'll increase amlodipine didn't 10 mg 01/10: Creatinine is slowly trending down 1.5 today, wound VAC to suction with changing every 3 days, dressing wet-to-dry per surgery, continue iv and ear vancomycin per ID, pressure in better controlled today will continue monitoring 01/11: Stable, going to have a dressing change today she asked for morphine dose when changing dressing, creatinine trending nicely trending down 1.32 today 01/12: Stable, she is having still hypernatremia 146 with hypokalemia 3.1, creatinine improved to 1.27, will start half-normal saline with 20 ME Q KCl and repeat BMP in a.m. 01/13: Episode of vomiting this morning, the wound care nurse think the left breast is more indurated today we'll asked surgery to see, continue antibiotic per ID recommendation 01/14: Breast ultrasound shows small collection of fluid, awaiting surgery input , discussed with ID she stopped iv Vanco, will continue by mouth Vanco for 2 weeks (ending January 27), creatinine improved to 0.08, as well as sodium, will DC iv fluid. Patient will be given a low dose of Lasix iv to help with her lower extremity edema then will resume on 20 by mouth daily, elevate the legs, AQUILES hose. Reg hypertension: I will stop Norvasc due to her lower Jevity lymphedema (may cause worsening), will start clonidine for now until creatinine improved then patient may go on CAT inhibitor Discussed in length with Dr. Marsh the infectious disease, regarding close follow up with surgery Addendum 3:[address] Fajardo the racecourse barrier attendant, discussed with him, he is covering for the weekend, requested to keep patient nothing by mouth after midnight for possible I&D tomorrow 01/15: seen the pt together with the surgeon , D/W him , no plan for I& D, US guided aspiration will be the plan , ID resumed broad coverage antibiotic 01/16: Plan for ultrasound-guided breast needle aspiration, surgery and ID following, continue iv antibiotic per ID 01/17: Breast aspirated fluid showing gram-negative organism, will check with ID for any antibiotic changes, addendum: Received a call from the nurse talked to Dr. Marsh no change in antibiotic at this point A/P: - BLESSING with hypernatremia: Resolving , status post iv fluid, no eosinophil in the urine unlikely related to Vanco - Sepsis: source Left breast abscess S/P I & D. Continue w/ IV Abx per ID recommendation, appreciate their consult followed her recs for antibiotic. - Necrotizing Fasciitis: Recent admit 11/16-12/20/16 for Sepsis/Nec Fasc to Left Axilla/Chest Wall s/p emergent debridement by Dr. Lainez w/ placement of Wound VAC, currently on [facility]. Following w/ Dr. Laniez as outpatient, last visit w / no complications, next visit 01/10/17. Will consult for further eval. Consult Wound Management for assistance w/ Wound Vac. - C. difficile diarrhea: Symptom improved, on by mouth Vanco with iv per ID, monitor clinical improvement - Lymphedema: Chronic. RLE w/ increased swelling. Previously on Lasix, will resume. Monitor renal function. Wound Consult for Lymphedema Wraps. - Hypokalemia: Replace by mouth/iv as needed, monitor BMP - HTN: Not optimal patient used to be on amlodipine,I will stop Norvasc due to her lower extremity lymphedema (may cause worsening), will start clonidine for now until creatinine improved then patient may go on CAT inhibitor - Morbid Obesity: Chronic. Limited mobility due to body habitus, PT as needed. - DVT Prophylaxis: Mechanical contraindication secondary to severe LE edema. Pharmacologic contraindication secondary to Hemoccult +, high risk for bleeding. Will monitor - Social work for d/c planning as needed. Discharge Planning When cleared by surgery Keesha Del Cid MD January 17, 2017 15:08
[2017-01-17] MEDS ORDERED: LORazepam 2 MG/ML VIAL IV PRN (19:00)
--- NOTE | 2017-01-17 19:03 | HHI.PR ---
Addendum to Inpatient Note Additional Information Clx noted GNR is groing from the breast clx will follow meanwhile cont zosyn anticipate eventual transition to po abx unless we are dealing with MDRO Rachel Marsh MD January 17, 2017 19:03
[2017-01-17] MEDS: traZODone HCL 50 MG TAB PO SCH (21:53)
[2017-01-17] MEDS: CYCLOBENZAPRINE HCL 10 MG TAB PO PRN (21:53)
[2017-01-18] MEDS: METOPROLOL TARTRATE 50 MG TAB PO SCH ×3 (00:47→17:31)
[2017-01-18] MEDS: MORPHINE SULFATE 4 MG/ML INJ IV PRN (00:47)
[2017-01-18] MEDS: PIPERACIL-TAZO 3.375 GM PREMIX 50 ML IV SCH ×5 (00:47→23:00)
[2017-01-18] MEDS: VANCOMYCIN 500 MG VIAL (FOR ORAL USE ONLY) PO SCH ×5 (00:47→22:57)
[2017-01-18] MEDS: ACETAMINOPHEN/HYDROcodone 325 MG/5 MG TAB PO PRN ×5 (04:06→22:59)
[2017-01-18 05:00] VITALS: BP 136/82; PULSE 81; RESP 18; TEMP 98.1; O2SAT 100
[2017-01-18] MEDS: hydrALAZINE HCL 25 MG TAB PO SCH ×3 (05:53→23:00)
[2017-01-18] MEDS: CYCLOBENZAPRINE HCL 10 MG TAB PO PRN ×2 (05:57→13:45)
[2017-01-18 08:24] VITALS: BP 133/78; PULSE 84; RESP 18; TEMP 97.8; O2SAT 98
[2017-01-18] MEDS: PANTOPRAZOLE SODIUM 40 MG VIAL IV PUSH SCH ×2 (09:00→22:57)
[2017-01-18] MEDS: cloNIDine HCL 0.2 MG TAB PO SCH ×2 (09:00→22:59)
[2017-01-18] MEDS: FUROSEMIDE 20 MG TAB PO SCH (09:01)
[2017-01-18] MEDS: ONDANSETRON HCL 4 MG/2 ML VIAL IVP PRN ×2 (09:05→17:31)
[2017-01-18] MEDS: SODIUM CHLORIDE 0.9% FLUSH 10 ML FLUSH IV FLUSH SCH ×2 (09:13→22:58)
[2017-01-18] MEDS: VANCOMYCIN INJ 1,500 MG in SODIUM CHLORID 0.9% 500 ML INJ 500 ML IV SCH (10:23)
[2017-01-18 12:49] VITALS: BP 123/77; PULSE 82; RESP 19; TEMP 97.9; O2SAT 99
--- NOTE | 2017-01-18 12:53 | HHI.PR ---
Subjective Remarks Still complaining of muscle spasm she requested that a Flexeril to be more frequent Afebrile no fever or chills Objective Vitals Vital Signs Date Time Temp Pulse Resp B/P Pulse Ox O2 Delivery O2 Flow Rate FiO2 01/18/17 12:49 97.9 82 19 123/77 99 01/18/17 09:21 Room Air 01/18/17 08:24 97.8 84 18 133/78 98 01/18/17 05:00 98.1 81 18 136/82 100 01/17/17 21:00 98.6 87 18 125/75 100 01/17/17 20:45 98.4 93 19 147/81 100 01/17/17 20:00 Room Air 01/17/17 16:00 96.9 79 16 135/82 100 I/O 01/17/17 01/17/17 01/17/17 01/18/17 01/18/17 01/18/17 07:00 15:00 23:00 07:00 15:00 23:00 Intake Total 1200 ml 480 ml 1000 ml 900 ml Balance 1200 ml 480 ml 1000 ml 900 ml Intake Oral 1200 ml 480 ml 1000 ml 900 ml # Voids 1 3 2 1 # Bowel Movements 1 2 2 1 1 Result Diagram: 01/17/1791901/17/17919 Objective Remarks GENERAL: This is a well-nourished, well-developed patient, in no apparent distress. SKIN: Warm skin on the left breast, wound VAC applied to the left chest under her axilla HEAD: Atraumatic. Normocephalic. EYES: Pupils equal round and reactive. Extraocular motions intact. No scleral icterus. ENT: Nose without bleeding, or drainage, Airway patent. NECK: Trachea midline. Supple CHEST: Midaxillary wound looks clean, CARDIOVASCULAR: Regular rate and rhythm without murmurs, gallops, or rubs. RESPIRATORY: Fair air entry bilaterally. No wheezes, rales, or rhonchi. GASTROINTESTINAL: Abdomen soft, non-tender, nondistended. Positive bowel sounds MUSCULOSKELETAL: Extremities +2 edema on the LLE, +2 RLE NEUROLOGICAL: Awake and alert. Moves all extremity. Normal speech.no focal neurological deficit Procedures 01/06- I and D with WOund VAC application A/P Problem List: (1) Sepsis ICD Code: A41.9 Status: Acute (2) Left breast abscess ICD Code: N61.1 Status: Acute (3) Hypokalemia ICD Code: E87.6 Status: Acute (4) Diarrhea ICD Code: R19.7 Status: Acute (5) Necrotizing fasciitis ICD Code: M72.6 Status: Acute (6) Lymphedema ICD Code: I89.0 Status: Acute (7) HTN (hypertension) ICD Code: I10 Status: Acute (8) Morbid obesity ICD Code: E66.01 Status: Acute Assessment and Plan 01/08: BLESSING with hypernatremia switch iv fluid to half-normal saline, monitor BMP , wound VAC to be changed tomorrow as per surgery, check renal failure panel including using a pulse in the urine rule out interstitial nephritis 01/09: Creatinine still at 1.6, renal ultrasound bilateral kidney enlargement no other specific pathology, increased urine protein over creatinine ratio, no eosinophil in the UA Continue hydration and avoid nephrotoxins, uncontrolled hypertension we'll increase amlodipine didn't 10 mg 01/10: Creatinine is slowly trending down 1.5 today, wound VAC to suction with changing every 3 days, dressing wet-to-dry per surgery, continue iv and ear vancomycin per ID, pressure in better controlled today will continue monitoring 01/11: Stable, going to have a dressing change today she asked for morphine dose when changing dressing, creatinine trending nicely trending down 1.32 today 01/12: Stable, she is having still hypernatremia 146 with hypokalemia 3.1, creatinine improved to 1.27, will start half-normal saline with 20 ME Q KCl and repeat BMP in a.m. 01/13: Episode of vomiting this morning, the wound care nurse think the left breast is more indurated today we'll asked surgery to see, continue antibiotic per ID recommendation 01/14: Breast ultrasound shows small collection of fluid, awaiting surgery input , discussed with ID she stopped iv Vanco, will continue by mouth Vanco for 2 weeks (ending January 27), creatinine improved to 0.08, as well as sodium, will DC iv fluid. Patient will be given a low dose of Lasix iv to help with her lower extremity edema then will resume on 20 by mouth daily, elevate the legs, AQUILES hose. Reg hypertension: I will stop Norvasc due to her lower Jevity lymphedema (may cause worsening), will start clonidine for now until creatinine improved then patient may go on CAT inhibitor Discussed in length with Dr. Marsh the infectious disease, regarding close follow up with surgery Addendum 3:[address] Fajardo the assembler surgical garment, discussed with him, he is covering for the weekend, requested to keep patient nothing by mouth after midnight for possible I&D tomorrow 01/15: seen the pt together with the surgeon , D/W him , no plan for I& D, US guided aspiration will be the plan , ID resumed broad coverage antibiotic 01/16: Plan for ultrasound-guided breast needle aspiration, surgery and ID following, continue iv antibiotic per ID 01/17: Breast aspirated fluid showing gram-negative organism, will check with ID for any antibiotic changes, addendum: Received a call from the nurse talked to Dr. Marsh no change in antibiotic at this point 01/18: Fluid aspiration showing gram-negative rods, continue antibiotic per ID A/P: - BLESSING with hypernatremia: Resolving , status post iv fluid, no eosinophil in the urine unlikely related to Vanco - Sepsis: source Left breast abscess S/P I & D. Continue w/ IV Abx per ID recommendation, appreciate their consult followed her recs for antibiotic. - Necrotizing Fasciitis: Recent admit 11/16-12/20/16 for Sepsis/Nec Fasc to Left Axilla/Chest Wall s/p emergent debridement by Dr. Lainez w/ placement of Wound VAC, currently on [facility]. Following w/ Dr. Lainez as outpatient, last visit w / no complications, next visit 01/10/17. Will consult for further eval. Consult Wound Management for assistance w/ Wound Vac. - C. difficile diarrhea: Symptom improved, on by mouth Vanco with iv per ID, monitor clinical improvement - Lymphedema: Chronic. RLE w/ increased swelling. Previously on Lasix, will resume. Monitor renal function. Wound Consult for Lymphedema Wraps. - Hypokalemia: Replace by mouth/iv as needed, monitor BMP - HTN: Not optimal patient used to be on amlodipine,I will stop Norvasc due to her lower extremity lymphedema (may cause worsening), will start clonidine for now until creatinine improved then patient may go on CAT inhibitor - Morbid Obesity: Chronic. Limited mobility due to body habitus, PT as needed. - DVT Prophylaxis: Mechanical contraindication secondary to severe LE edema. Pharmacologic contraindication secondary to Hemoccult +, high risk for bleeding. Will monitor - Social work for d/c planning as needed. Discharge Planning When cleared by surgery Keesha Del Cid MD January 18, 2017 12:53
--- NOTE | 2017-01-18 14:31 | HHI.IDPN ---
Subjective Subjective Remarks still co edema, tenderness and induration of her L breast no fever Diarrhea returned; multiple liquid BMs yday, 1 today L breast fluid collection was aspirated by IR - Kleb pneumo booth S Antibiotics po vanco Allergies: Coded Allergies: No Known Allergies (Unverified , 01/05/17) Objective . Vital Signs Date Time Temp Pulse Resp B/P Pulse Ox O2 Delivery O2 Flow Rate FiO2 01/18/17 12:49 97.9 82 19 123/77 99 01/18/17 09:21 Room Air 01/18/17 08:24 97.8 84 18 133/78 98 01/18/17 05:00 98.1 81 18 136/82 100 01/17/17 21:00 98.6 87 18 125/75 100 01/17/17 20:45 98.4 93 19 147/81 100 01/17/17 20:00 Room Air 01/17/17 16:00 96.9 79 16 135/82 100 01/17/17 01/17/17 01/18/17 15:00 23:00 07:00 Intake Total 480 ml 1000 ml 900 ml Balance 480 ml 1000 ml 900 ml Intake Oral 480 ml 1000 ml 900 ml # Voids 3 2 1 # Bowel Movements 2 2 1 . Laboratory Tests Test 01/16/17 01/17/17 18:27 09:20 White Blood Count 19.6 TH/MM3 15.9 TH/MM3 Red Blood Count 3.29 MIL/MM3 3.63 MIL/MM3 Hemoglobin 9.3 GM/DL 9.9 GM/DL Hematocrit 28.7 % 31.8 % Mean Corpuscular Volume 87.5 FL 87.7 FL Mean Corpuscular Hemoglobin 28.2 PG 27.4 PG Mean Corpuscular Hemoglobin 32.2 % 31.2 % Concent Red Cell Distribution Width 18.4 % 18.0 % Platelet Count 411 TH/MM3 412 TH/MM3 Mean Platelet Volume 7.4 FL 7.2 FL Neutrophils (%) (Auto) 82.0 % 81.7 % Lymphocytes (%) (Auto) 8.1 % 9.3 % Monocytes (%) (Auto) 6.3 % 6.6 % Eosinophils (%) (Auto) 3.2 % 2.1 % Basophils (%) (Auto) 0.4 % 0.3 % Neutrophils # (Auto) 16.1 TH/MM3 13.0 TH/MM3 Lymphocytes # (Auto) 1.6 TH/MM3 1.5 TH/MM3 Monocytes # (Auto) 1.2 TH/MM3 1.0 TH/MM3 Eosinophils # (Auto) 0.6 TH/MM3 0.3 TH/MM3 Basophils # (Auto) 0.1 TH/MM3 0.0 TH/MM3 CBC Comment DIFF FINAL DIFF FINAL Differential Comment Laboratory Tests Test 01/17/17 09:20 Creatinine 1.25 MG/DL Estimat Glomerular Filtration 59 ML/MIN Rate Microbiology Date/Time Procedure Status Source Growth 01/16/17 16:08 Gram Stain - Final Complete Abscess Breast 01/16/17 16:08 Wound Culture - Final Complete Klebsiella Pneumoniae 01/16/17 16:08 Acid Fast Stain Received Abscess Breast Pending 01/16/17 16:08 Mycobacterial Culture Received Abscess Breast Pending 01/16/17 16:08 Fungal Smear Received Abscess Breast Pending 01/16/17 16:08 Fungal Culture Received Abscess Breast Pending Imaging Last Impressions Breast Ultrasound 01/14/17 0000 Signed Impressions: Service Date/Time: Saturday, January 14, 2017 07:57 - CONCLUSION: 1. Diffuse skin thickening, edema and a small amount of fluid in the left breast as described above. Abraham Mata MD Renal Ultrasound 01/08/17 0000 Signed Impressions: Service Date/Time: Sunday, January 08, 2017 18:32 - CONCLUSION: Symmetric enlarged kidneys bilaterally. No focal lesions seen.. Kulwinder Fish MD Chest X-Ray 01/05/17 2225 Signed Impressions: Service Date/Time: December 22:37 - CONCLUSION: 1. Focal consolidation within the right medial lung base. Infiltrate versus rounded atelectasis. Followup study suggested to document resolution. 2. Cardiomegaly. Kulwinder Chaudhary Jr., MD Physical Exam CONSTITUTIONAL/GENERAL: This is a morbidly obese patient, in no apparent distress. SKIN: L breast less edematous and less tender to palpation , + mild erythema Diffuse induraion no area of fluctuance + erythema Small wound in LOQ clean, min serosang dc L axilla with fully granulted wound R axilla - deep itradermal non tender nodules, irving abscess HEAD: Atraumatic. Normocephalic. EYES: Pupils equal and round and reactive. Extraocular motions intact. No scleral icterus. No injection or drainage. Fundi not examined. CARDIOVASCULAR: Regular rate and rhythm without murmurs, gallops, or rubs. RESPIRATORY/CHEST: Symmetric, unlabored respirations. Clear to auscultation. GASTROINTESTINAL: Abdomen soft, non-tender, nondistended. Bowel sounds present. MUSCULOSKELETAL: Extremities without clubbing, cyanosis, or edema. NEUROLOGICAL: Awake and alert. Non focal Assessment & Plan Remarks Nec fas L axilla, resolved New abscess L breast; clx with skin everett Kleb pneumo booth S Diarrhea with recent abx exposure C.diff + - hypervirulent 027 strain - - clinically returened after zosyn starte Mild renal insufficiency ? vanco contributing - will change to CFTX with intent to oral abx transition - cont po vanco x 2 wks after all abx stopped - rechk stool for C.diff Rachel Marsh MD January 18, 2017 14:31
[2017-01-18 16:20] VITALS: BP 138/82; PULSE 83; RESP 19; TEMP 98.4; O2SAT 100
--- NOTE | 2017-01-18 16:46 | HHI.PR ---
Subjective Subjective Notes Resting in bed RN at bedside changing dressings; unable to find area to pack RIGHT axilla Objective Vitals/I&O Vital Signs Date Time Temp Pulse Resp B/P Pulse Ox O2 Delivery O2 Flow Rate FiO2 01/18/17 16:20 98.4 83 19 138/82 100 01/18/17 09:21 Room Air Labs Laboratory Tests Test 01/18/17 07:16 Random Vancomycin Level 14.3 Date/Time Procedure Status Source Growth 01/16/17 16:08 Gram Stain - Final Complete Abscess Breast 01/16/17 16:08 Wound Culture - Final Complete Klebsiella Pneumoniae 01/16/17 16:08 Fungal Smear - Final Resulted Abscess Breast NO FUNGAL ELEMENTS SEEN. 01/16/17 16:08 Fungal Culture Resulted Abscess Breast Pending 01/16/17 16:08 Acid Fast Stain - Final Resulted Abscess Breast NO ACID FAST BACILLI SEEN 01/16/17 16:08 Mycobacterial Culture Resulted Abscess Breast Pending Cardiovascular: Regular Lungs: Clear Abdomen: Non-distended, Non-tender Narrative Exam LEFT breast---small indurated hard fluid collection at 4 o'clock position ( smaller today than yesterday) LEFT axillary--- open wound with good granulation of tissue; 3 areas of tunneling RIGHT axillary --- prior spontaneously draining abscess now closed; no palpable area of fluid collection A/P Assessment and Plan 36 year old female s/p NG of LEFT breast and axillary; re admitted with small LEFT breast abscess (s/p I&D) -Okay to shower between dressing changes -Wet to dry dressing to LEFT breast -Dry dressing to RIGHT axilla -Pain control -Regular diet -ID managing antibiotics Attending Statement patient seen at bedside shower today continue wound care Attestation The exam, history, and the medical decision-making described in the above note were completed with the assistance of the mid-level provider. I reviewed and agree with the findings presented. I attest that I had a [id number] encounter with the patient on the same day, and personally performed and documented my assessment and findings in the medical record. Priyanka Ocasio January 18, 2017 16:46 Rubin Mayes MD January 26, 2017 21:52
[2017-01-18 20:00] VITALS: BP 134/78; PULSE 91; RESP 18; TEMP 98; O2SAT 100
[2017-01-18] MEDS: traZODone HCL 50 MG TAB PO SCH (23:00)
[2017-01-19] VITALS: BP 133/79; PULSE 93; RESP 18; TEMP 97; O2SAT 100
[2017-01-19 04:00] VITALS: BP 133/81; PULSE 75; RESP 18; TEMP 97.5; O2SAT 97
[2017-01-19] MEDS: METOPROLOL TARTRATE 50 MG TAB PO SCH ×3 (04:31→17:31)
[2017-01-19] MEDS: PIPERACIL-TAZO 3.375 GM PREMIX 50 ML IV SCH ×2 (04:31→11:39)
[2017-01-19] MEDS: ACETAMINOPHEN/HYDROcodone 325 MG/5 MG TAB PO PRN ×5 (04:32→21:53)
[2017-01-19] MEDS: hydrALAZINE HCL 25 MG TAB PO SCH ×3 (06:57→21:54)
[2017-01-19] MEDS: VANCOMYCIN 500 MG VIAL (FOR ORAL USE ONLY) PO SCH ×3 (06:57→17:29)
[2017-01-19 08:17] VITALS: BP 137/92; PULSE 86; RESP 18; TEMP 96.6; O2SAT 100
[2017-01-19] MEDS: ONDANSETRON HCL 4 MG/2 ML VIAL IVP PRN ×2 (08:27→17:31)
[2017-01-19] MEDS: PANTOPRAZOLE SODIUM 40 MG VIAL IV PUSH SCH ×2 (08:27→21:54)
[2017-01-19] MEDS: FUROSEMIDE 20 MG TAB PO SCH ×2 (08:28→09:00)
[2017-01-19] MEDS: cloNIDine HCL 0.2 MG TAB PO SCH ×2 (08:29→21:54)
[2017-01-19] MEDS: CYCLOBENZAPRINE HCL 10 MG TAB PO PRN (08:29)
[2017-01-19] MEDS: SODIUM CHLORIDE 0.9% FLUSH 10 ML FLUSH IV FLUSH SCH ×2 (09:00→21:54)
--- NOTE | 2017-01-19 10:15 | HHI.PR ---
Subjective Remarks Follow up on sepsis due to left breast abscess and left axilla necrotizing fasciitis as well as C. difficile diarrhea, BLESSING and electrolyte imbalance, patient status post surgery I&D and wound VAC, surgery and ID on board. Doing well today, afebrile, continue iv antibiotic per ID and GS recommendation pt concerned about her legs , we will consult podiatry and at the same time , educated pt about the need to keep leg elevated and applying compression stocking Objective Vitals Vital Signs Date Time Temp Pulse Resp B/P Pulse Ox O2 Delivery O2 Flow Rate FiO2 01/19/17 08:17 96.6 86 18 137/92 100 01/19/17 04:00 97.5 75 18 133/81 97 01/19/17 00:00 97.0 93 18 133/79 100 01/18/17 20:00 Room Air 01/18/17 20:00 98.0 91 18 134/78 100 01/18/17 16:20 98.4 83 19 138/82 100 01/18/17 12:49 97.9 82 19 123/77 99 I/O 01/18/17 01/18/17 01/18/17 01/19/17 01/19/17 01/19/17 07:00 15:00 23:00 07:00 15:00 23:00 Intake Total 900 ml Balance 900 ml Intake Oral 900 ml # Voids 1 2 4 # Bowel Movements 1 1 1 3 Result Diagram: 01/17/17 0920 01/19/17 0650 Objective Remarks GENERAL: This is a well-nourished, well-developed patient, in no apparent distress. SKIN: Warm skin on the left breast, wound VAC applied to the left chest under her axilla HEAD: Atraumatic. Normocephalic. EYES: Pupils equal round and reactive. Extraocular motions intact. No scleral icterus. ENT: Nose without bleeding, or drainage, Airway patent. NECK: Trachea midline. Supple CHEST: Midaxillary wound looks clean, CARDIOVASCULAR: Regular rate and rhythm without murmurs, gallops, or rubs. RESPIRATORY: Fair air entry bilaterally. No wheezes, rales, or rhonchi. GASTROINTESTINAL: Abdomen soft, non-tender, nondistended. Positive bowel sounds MUSCULOSKELETAL: Extremities +2 edema on the LLE, +2 RLE NEUROLOGICAL: Awake and alert. Moves all extremity. Normal speech.no focal neurological deficit Procedures 01/06- I and D with WOund VAC application A/P Problem List: (1) Sepsis ICD Code: A41.9 Status: Acute (2) Left breast abscess ICD Code: N61.1 Status: Acute (3) Hypokalemia ICD Code: E87.6 Status: Acute (4) Diarrhea ICD Code: R19.7 Status: Acute (5) Necrotizing fasciitis ICD Code: M72.6 Status: Acute (6) Lymphedema ICD Code: I89.0 Status: Acute (7) HTN (hypertension) ICD Code: I10 Status: Acute (8) Morbid obesity ICD Code: E66.01 Status: Acute Assessment and Plan A/P: - Status post breast Fluid aspiration growing Klebsiella pneumonia pansensitive ED, continue antibiotic per ID>> plan to change to CFTX with intent to oral abx transition cont po vanco x 2 wks after all abx stopped rechk stool for C.diff - BLESSING with hypernatremia: Resolving , status post iv fluid, no eosinophil in the urine unlikely related to Vanco, creatinine reach plateau around 1-1.4, will consult nephrology - Sepsis: source Left breast abscess S/P I & D. Continue w/ IV Abx per ID recommendation, appreciate their consult followed her recs for antibiotic. - Necrotizing Fasciitis: Recent admit 11/16-12/20/16 for Sepsis/Nec Fasc to Left Axilla/Chest Wall s/p emergent debridement by Dr. Lainez w/ placement of Wound VAC, currently on [facility]. Following w/ Dr. Lainez as outpatient, last visit w / no complications, next visit 01/10/17. Will consult for further eval. Consult Wound Management for assistance w/ Wound Vac. - C. difficile diarrhea: Symptom improved, on by mouth Vanco with iv per ID, monitor clinical improvement - Lymphedema: Chronic. Worsening RLE w/ increased swelling. Previously on Lasix, will resume. we will consult podiatry and at the same time , educated pt about the need to keep leg elevated and applying compression stocking - Hypokalemia: lasix po prn , keep leg elevated , compression stocking , monitor BMP - HTN: Not optimal patient used to be on amlodipine, stop Norvasc due to her lower extremity lymphedema (may cause worsening), start clonidine for now until creatinine improved then patient may go on CAT inhibitor - Morbid Obesity: Chronic. Limited mobility due to body habitus, PT as needed. - DVT Prophylaxis: Mechanical contraindication secondary to severe LE edema. Pharmacologic contraindication secondary to Hemoccult +, high risk for bleeding. Will monitor - Social work for d/c planning as needed. Discharge Planning When cleared by surgery Keesha Del Cid MD January 19, 2017 10:15
[2017-01-19] MEDS: VANCOMYCIN INJ 1,500 MG in SODIUM CHLORID 0.9% 500 ML INJ 500 ML IV SCH (11:40)
[2017-01-19 12:18] VITALS: BP 133/84; PULSE 80; RESP 16; TEMP 97.2; O2SAT 98
--- NOTE | 2017-01-19 13:00 | HHI.PR ---
Subjective Subjective Notes Resting in bed Left message with Primary Doctor to find out what diuretic she has been on in the past Objective Vitals/I&O Vital Signs Date Time Temp Pulse Resp B/P Pulse Ox O2 Delivery O2 Flow Rate FiO2 01/19/17 12:18 97.2 80 16 133/84 98 01/18/17 20:00 Room Air Labs Laboratory Tests Test 01/19/17 06:50 Creatinine 1.42 Estimat Glomerular Filtration 51 Rate Date/Time Procedure Status Source Growth 01/16/17 16:08 Gram Stain - Final Complete Abscess Breast 01/16/17 16:08 Wound Culture - Final Complete Klebsiella Pneumoniae 01/16/17 16:08 Fungal Smear - Final Resulted Abscess Breast NO FUNGAL ELEMENTS SEEN. 01/16/17 16:08 Fungal Culture Resulted Abscess Breast Pending 01/16/17 16:08 Acid Fast Stain - Final Resulted Abscess Breast NO ACID FAST BACILLI SEEN 01/16/17 16:08 Mycobacterial Culture Resulted Abscess Breast Pending Cardiovascular: Regular Lungs: Clear Abdomen: Non-distended, Non-tender Extremities: Other (see below ) Narrative Exam LEFT breast---small indurated hard fluid collection at 4 o'clock position ( smaller today than yesterday); dressing removed; purulent drainage LEFT axillary--- open wound with good granulation of tissue; 3 areas of tunneling; packing removed; purulent draining RIGHT axillary --- prior spontaneously draining abscess now closed; no palpable area of fluid collection A/P Assessment and Plan 36 year old female s/p NG of LEFT breast and axillary; re admitted with small LEFT breast abscess (s/p I&D) -Okay to shower between dressing changes -Wet to dry dressing with packing to LEFT axillary---increased frequency of dressing change to 4 times daily -Wet to dry dressing to LEFT breast---increased frequency of dressing change to 4 times daily -Dry dressing to RIGHT axilla -Pain control -Regular diet -ID managing antibiotics Attending Statement patient seen at bedside reg diet shower wound care Attestation The exam, history, and the medical decision-making described in the above note were completed with the assistance of the mid-level provider. I reviewed and agree with the findings presented. I attest that I had a [id number] encounter with the patient on the same day, and personally performed and documented my assessment and findings in the medical record. Priyanka Ocasio January 19, 2017 13:00 Rubin Mayes MD January 26, 2017 21:56
[2017-01-19] MEDS: cefTRIAXone INJ 2,000 MG in SODIUM CHLORIDE 0.9% INJ 100 ML IV SCH (13:22)
--- NOTE | 2017-01-19 13:29 | PD.POD.CON ---
Patient Intake Chief Complaint Bilateral lower extremity edema Consult Requested by Doctor Del Cid Reason for Consult Evaluation and treatment of lymphedema Primary Care Physician Jimmie Gutierrez History of Present Illness Patient is a 36-year-old male with history of bilateral lower extremity edema. She has compression stockings at home that she has difficulty wearing. She was admitted to the hospital and hasn't weeping lesions of both legs. She is on Lasix 20 mg daily. She drinks large amounts of fluid per day. Coded Allergies: No Known Allergies (Unverified , 01/05/17) Preferred Language to Discuss: Lithuanian Barriers to Learning: None Teaching Method: Discussion Vital Signs Date Time Temp Pulse Resp B/P Pulse Ox O2 Delivery O2 Flow Rate FiO2 01/19/17 12:18 97.2 80 16 133/84 98 01/19/17 08:17 96.6 86 18 137/92 100 01/19/17 04:00 97.5 75 18 133/81 97 01/19/17 00:00 97.0 93 18 133/79 100 01/18/17 20:00 Room Air 01/18/17 20:00 98.0 91 18 134/78 100 01/18/17 16:20 98.4 83 19 138/82 100 Pain scale used: 0-10 numeric scale Pain score: 1 Medications Current Medications Pantoprazole Sodium 80 mg/ Sodium Chloride 35 ml @ 420 mls/hr ONCE ONCE IV Last administered on 01/05/17 19:45; Start 01/05/17 at 19:15; Stop 01/05/17 at 19:19; Status DC Pantoprazole Sodium/Sodium Chloride (Protonix Inj/NS Inj) 100 ml @ 10 mls/hr Q10H IV Last administered on 01/05/17 19:46; Start 01/05/17 at 19:15; Stop at 20:45; Status DC Morphine Sulfate 4 mg 4 mg ONCE ONCE IV PUSH Last administered on 01/05/17 19 :46; Start 01/05/17 at 19:15; Stop 01/05/17 at 19:16; Status DC Vancomycin HCl 1000 mg/Sodium Chloride 250 ml @ 250 mls/hr ONCE ONCE IV Last administered on 01/05/17 20:13; Start 01/05/17 at 19:30; Stop 01/05/17 at 20:29 ; Status DC Piperacillin Sod/ Tazobactam Sod 50 ml @ 100 mls/hr ONCE ONCE IV Last administered on 01/05/17 19:53; Start 01/05/17 at 19:30; Stop 01/05/17 at 19:59 ; Status DC Sodium Chloride (NS 1000 ml Inj) 1,000 ml @ 100 mls/hr Q10H IV ; Start at 19:30; Stop 01/05/17 at 20:33; Status DC Potassium Chloride 40 meq 40 meq ONCE ONCE PO Last administered on 01/05/17 20:13; Start 01/05/17 at 19:45; Stop 01/05/17 at 19:46; Status DC Potassium Chloride 100 ml @ 50 mls/hr BOLUS ONCE IV Last administered on 01/05 21:22; Start 01/05/17 at 19:45; Stop 01/05/17 at 21:44; Status DC Pharmacy Profile Note 0 ml @ 0 mls/hr UNSCH OTHER ; Start 01/05/17 at 20:15; Stop 01/13/17 at 17:22; Status DC Cefepime HCl 1000 mg/Sodium Chloride 100 ml @ 200 mls/hr Q12H IV ; Start at 09:00; Stop 01/13/17 at 09:00; Status DC Sodium Chloride (NS 1000 ml Inj) 1,000 ml @ 100 mls/hr Q10H IV Last administered on 01/07/17 23:48; Start 01/05/17 at 21:00; Stop 01/08/17 at 13:09 ; Status DC Sodium Chloride (NS Flush) 2 ml UNSCH PRN IV FLUSH FLUSH AFTER USING IV ACCESS ; Start 01/05/17 at 20:15 Sodium Chloride (NS Flush) 2 ml BID IV FLUSH Last administered on 01/19/17 09: 00; Start 01/05/17 at 21:00 Ondansetron HCl (Zofran Inj) 4 mg Q6H PRN IVP NAUSEA OR VOMITING Last administered on 01/19/17 08:27; Start 01/05/17 at 20:15 Bisacodyl (Dulcolax Supp) 10 mg DAILY PRN RECTAL CONSTIPATION; Start 01/05/17 at 20:15 Acetaminophen (Tylenol) 650 mg Q6H PRN PO FEVER/PAIN SCALE 1 TO 2 Last administered on 01/14/17 20:31; Start 01/05/17 at 20:15 Acetaminophen/ Hydrocodone Bitart ([place] 5-325 Mg) 1 tab Q4H PRN PO PAIN SCALE 3 TO 5 Last administered on 01/07/17 13:43; Start 01/05/17 at 20:15 Morphine Sulfate (Morphine Inj) 2 mg Q3H PRN IV Pain 6-10 Last administered on 01/07/17 08:48; Start 01/05/17 at 20:15; Stop 01/07/17 at 14:22; Status DC Amlodipine Besylate (Norvasc) 2.5 mg DAILY PO Last administered on 01/09/17 08 :28; Start 01/06/17 at 09:00; Stop 01/09/17 at 12:56; Status DC Hydralazine HCl (Apresoline) 25 mg Q12HR PO Last administered on 01/10/17 08: 45; Start 01/05/17 at 21:00; Stop 01/10/17 at 16:13; Status DC Metoprolol Tartrate (Lopressor) 50 mg BID PO ; Start 01/05/17 at 21:00; Status UNV Miscellaneous (Pill Splitter) 1 ea UNSCH PRN OTHER SEE LABEL COMMENTS; Start at 20:30 Metoprolol Tartrate (Lopressor) 50 mg BID PO Last administered on 01/10/17 08: 45; Start 01/05/17 at 21:00; Stop 01/10/17 at 16:13; Status DC Furosemide (Lasix Inj) 20 mg ONCE ONCE IV PUSH Last administered on 01/05/17 21:21; Start 01/05/17 at 20:45; Stop 01/05/17 at 20:49; Status DC Pantoprazole Sodium 40 mg 40 mg Q12H IV PUSH Last administered on 01/19/17 08: 27; Start 01/06/17 at 21:00 Vancomycin HCl 1000 mg/Sodium Chloride 250 ml @ 250 mls/hr ONCE ONCE IV Last administered on 01/05/17 21:24; Start 01/05/17 at 21:00; Stop 01/05/17 at 21:59 ; Status DC Vancomycin HCl/ Sodium Chloride (Vancomycin Inj/ NS 500 ml Inj) 520 ml @ 250 mls/hr Q12H IV Last administered on 01/06/17 22:39; Start 01/06/17 at 09:00; Stop 01/07/17 at 10:07; Status DC Miscellaneous Information SPECIFIC LAB TO BE DRAWN:VANCO TROUGH DATE TO BE DR... ONCE ONCE .XX Last administered on 01/07/17 08:45; Start 01/07/17 at 08 :45; Stop 01/07/17 at 08:46; Status DC Lidocaine/ Epinephrine 20 ml 20 ml STK-MED ONCE .ROUTE Last administered on 11:46; Start 01/06/17 at 09:20; Stop 01/06/17 at 09:21; Status DC Sodium Bicarbonate (Sodium Bicarbonate 8.4% Inj) 50 ml @ As Directed STK-MED ONCE .ROUTE ; Start 01/06/17 at 09:36; Stop 01/06/17 at 09:37; Status DC Lidocaine/ Epinephrine (Xylocaine-Epi 1%-1:100,000 Inj) 20 ml STK-MED ONCE .ROUTE ; Start 01/06/17 at 09:36; Stop 01/06/17 at 09:37; Status DC Meperidine HCl 25 mg 25 mg STK-MED ONCE .ROUTE Last administered on 01/06/17 12:34; Start 01/06/17 at 12:34; Stop 01/06/17 at 12:35; Status DC Piperacillin Sod/ Tazobactam Sod (Zosyn 3.375 Gm Premix) 50 ml @ 100 mls/hr Q6H IV Last administered on 01/09/17 14:30; Start 01/06/17 at 15:00; Stop at 19:42; Status DC Fentanyl Citrate (fentaNYL INJ) 250 mcg STK-MED ONCE .ROUTE ; Start 01/06/17 at 13:18; Stop 01/06/17 at 13:19; Status DC Fentanyl Citrate (fentaNYL INJ) 100 mcg STK-MED ONCE .ROUTE ; Start 01/06/17 at 13:19; Stop 01/06/17 at 13:20; Status DC Miscellaneous Information ALL NURSING DEPARTME... UNSCH PRN .XX SEE LABEL COMMENTS; Start 01/06/17 at 13:30; Stop 01/07/17 at 13:29; Status DC Midazolam HCl (Versed Inj) 2 mg STK-MED ONCE .ROUTE ; Start 01/06/17 at 15:15; Stop 01/06/17 at 15:16; Status DC Vancomycin HCl (VANCOMYCIN for oral use only) 125 mg Q6HR PO Last administered on 01/19/17 12:21; Start 01/07/17 at 00:00 Potassium Chloride (KCl) 403 meq Q4H PO ; Start 01/07/17 at 13:00; Stop at 13:16; Status DC Potassium Chloride (KCl) 40 meq Q4H PO Last administered on 01/07/17 17:22; Start 01/07/17 at 14:00; Stop 01/07/17 at 18:01; Status DC Morphine Sulfate (Morphine Inj) 4 mg Q4H PRN IV breakthrough pain Last administered on 01/08/17 06:14; Start 01/07/17 at 18:15; Stop 01/09/17 at 18:14 ; Status DC Acetaminophen/ Hydrocodone Bitart 2 tab 2 tab Q4H PRN PO pain 6-10 Last administered on 01/19/17 12:20; Start 01/07/17 at 14:30 Vancomycin HCl 1250 mg/Sodium Chloride 262.5 ml @ 250 mls/hr ONCE ONCE IV Last administered on 01/08/17 14:00; Start 01/08/17 at 14:00; Stop 01/08/17 at 15:02; Status DC Sodium Chloride (1/2 NS 1000 ml Inj) 1,000 ml @ 100 mls/hr Q10H ONCE IV Last administered on 01/08/17 16:05; Start 01/08/17 at 14:00; Stop 01/08/17 at 23:59 ; Status DC Trazodone HCl (Desyrel) 50 mg HS PO Last administered on 01/18/17 23:00; Start 01/08/17 at 22:00 Amlodipine Besylate 10 mg 10 mg DAILY PO Last administered on 01/14/17 08:43; Start 01/10/17 at 09:00; Stop 01/14/17 at 13:40; Status DC Vancomycin HCl/ Sodium Chloride (Vancomycin Inj/ NS 250 ml Inj) 262.5 ml @ 262.5 mls/ hr ONCE ONCE IV Last administered on 01/09/17 15:35; Start at 15:00; Stop 01/09/17 at 15:59; Status DC Amlodipine Besylate 5 mg 5 mg ONCE ONCE PO Last administered on 01/09/17 14: 29; Start 01/09/17 at 14:00; Stop 01/09/17 at 14:09; Status DC Vancomycin HCl/ Sodium Chloride (Vancomycin Inj/ NS 500 ml Inj) 515 ml @ 250 mls/hr Q18H IV Last administered on 01/13/17 12:11; Start 01/10/17 at 12:00; Stop 01/13/17 at 17:22; Status DC Miscellaneous Information SPECIFIC LAB TO BE DRAWN:VANCOMYCIN TROUGH DATE TO... ONCE ONCE .XX Last administered on 01/12/17 00:09; Start 01/11/17 at 23:45; Stop 01/11/17 at 23:46; Status DC Hydralazine HCl (Apresoline) 25 mg Q8HR PO Last administered on 01/19/17 06:57 ; Start 01/10/17 at 22:00 Metoprolol Tartrate (Lopressor) 50 mg Q8H PO Last administered on 01/19/17 09: 00; Start 01/10/17 at 17:00 Clonidine (Catapres) 0.1 mg Q6H PRN PO bp>160/90 Last administered on 23:56; Start 01/10/17 at 16:15 Morphine Sulfate (Morphine Inj) 1 mg BID PRN IV DRESSING CHANGES Last administered on 01/18/17 00:47; Start 01/11/17 at 16:00 Miscellaneous Information SPECIFIC LAB TO BE DRAWN:VANCOMYCIN TROUGH DATE TO... ONCE ONCE .XX ; Start 01/14/17 at 05:45; Stop 01/14/17 at 05:45; Status DC Potassium Chloride/Sodium Chloride (1/2 NS + KCl 20 Meq Inj) 1,000 ml @ 84 mls/ hr [id number] IV Last administered on 01/12/17 14:11; Start 01/12/17 at 13:00; Stop 01/12/17 at 16:13; Status DC Potassium Chloride 40 meq 40 meq Q4H PO Last administered on 01/12/17 20:57; Start 01/12/17 at 17:00; Stop 01/12/17 at 21:01; Status DC Sodium Chloride 1,000 ml @ 84 mls/hr [id number] IV Last administered on 16:53; Start 01/12/17 at 16:15; Stop 01/14/17 at 13:40; Status DC Dextrose (D5W 1000 ml Inj) 1,000 ml @ 42 mls/hr [id number] IV Last administered on 01/13/17 12:11; Start 01/13/17 at 10:00; Stop 01/13/17 at 21:54; Status DC Furosemide (Lasix Inj) 20 mg ONCE ONCE IV PUSH Last administered on 01/14/17 14:05; Start 01/14/17 at 13:30; Stop 01/14/17 at 13:52; Status DC Furosemide (Lasix) 20 mg DAILY PO Last administered on 01/19/17 08:28; Start at 09:00 Clonidine 0.2 mg 0.2 mg Q12HR PO Last administered on 01/19/17 08:29; Start at 21:00 Pharmacy Profile Note 0 ml @ 0 mls/hr UNSCH OTHER ; Start 01/14/17 at 17:00; Stop 01/19/17 at 12:19; Status DC Piperacillin Sod/ Tazobactam Sod 50 ml @ 100 mls/hr Q6H IV Last administered on 01/17/17 01:27; Start 01/14/17 at 18:00; Stop 01/17/17 at 07:46; Status DC Vancomycin HCl/ Sodium Chloride (Vancomycin Inj/ NS 500 ml Inj) 515 ml @ 250 mls/hr Q18H IV Last administered on 01/15/17 14:15; Start 01/14/17 at 20:00; Stop 01/15/17 at 15:23; Status DC Miscellaneous Information SPECIFIC LAB TO BE DRAWN:VANCO TROUGH DATE TO BE DR... ONCE ONCE .XX Last administered on 01/15/17 13:45; Start 01/15/17 at 13 :45; Stop 01/15/17 at 13:46; Status DC Vancomycin HCl/ Sodium Chloride (Vancomycin Inj/ NS 500 ml Inj) 515 ml @ 250 mls/hr Q18H IV Last administered on 01/17/17 08:04; Start 01/16/17 at 12:00; Stop 01/18/17 at 09:19; Status DC Miscellaneous Information SPECIFIC LAB TO BE DRAWN:VANCOM... ONCE ONCE .XX Last administered on 01/16/17 11:45; Start 01/16/17 at 11:45; Stop 01/16/17 at 11: 46; Status DC Lactated Ringer's 1,000 ml @ 30 mls/hr Q24H PRN IV SEE LABEL COMMENTS; Start at 15:00; Stop 01/19/17 at 14:59 Sodium Chloride (NS 500 ml Inj) 500 ml @ 30 mls/hr [id number] PRN IV SEE LABEL COMMENTS; Start 01/16/17 at 15:00; Stop 01/19/17 at 14:59 Metoprolol Tartrate (Lopressor) 25 mg SIDE STITCHER PRN PO SEE LABEL COMMENTS; Start 01/16/17 at 15:00; Stop 01/19/17 at 14:59 Povidone Iodine (Betadine 5% Antisepsis Kit) 1 applic SIDE STITCHER PRN EACH NARE SEE LABEL COMMENTS; Start 01/16/17 at 15:00; Stop 01/19/17 at 14:59 Chlorhexidine Gluconate (Chlorhexidine 2% Cloth) 3 pack SIDE STITCHER PRN TOPICAL SEE LABEL COMMENTS; Start 01/16/17 at 15:00; Stop 01/19/17 at 14:59 Insulin Human Regular (NovoLIN R INJ) See Protocol Table ... SIDE STITCHER PRN SQ SEE PROTOCOL TABLE; Start 01/16/17 at 15:00; Stop 01/19/17 at 14:59 Miscellaneous (Pill Splitter) 1 ea UNSCH PRN OTHER SEE LABEL COMMENTS; Start at 17:45; Status Cancel Cyclobenzaprine HCl 5 mg 5 mg DAILY PRN PO MUSCLE SPASMS Last administered on 22:00; Start 01/16/17 at 21:45; Stop 01/17/17 at 18:56; Status DC Piperacillin Sod/ Tazobactam Sod (Zosyn 3.375 Gm Premix) 50 ml @ 100 mls/hr Q6H IV Last administered on 01/19/17 11:39; Start 01/17/17 at 11:00; Stop at 12:19; Status DC Cyclobenzaprine HCl (Flexeril) 10 mg TID PRN PO MUSCLE SPASMS Last administered on 01/19/17 08:29; Start 01/17/17 at 18:56; Stop 01/21/17 at 21:44 Lorazepam 1 mg 1 mg ONCE PRN IV PRIOR TO MRI FOR SEDATION; Start 01/17/17 at 19: 00; Stop 01/17/17 at 23:59; Status Cancel Vancomycin HCl/ Sodium Chloride (Vancomycin Inj/ NS 500 ml Inj) 515 ml @ 250 mls/hr Q24H IV Last administered on 01/19/17 11:40; Start 01/18/17 at 11:00; Stop 01/19/17 at 12:19; Status DC Miscellaneous Information SPECIFIC LAB TO BE DRAWN:VANCOMYCIN TROUGH DATE TO... ONCE ONCE .XX ; Start 01/21/17 at 10:45; Stop 01/21/17 at 10:46; Status Cancel Ceftriaxone Sodium/Sodium Chloride (Rocephin Inj/NS Inj) 100 ml @ 200 mls/hr Q24H IV ; Start 01/19/17 at 13:00 Past, Family & Social History Past Medical History PFSH Reviewed: Yes Past Surgical History Breast: REPORTS HX OF: Breast biopsy Review of Systems Cardiovascular: COMPLAINS OF: Swelling legs / ankles Musculoskeletal: COMPLAINS OF: Joint pain/swell/dysarthr Integumentary: COMPLAINS OF: Hx masses/lumps Exam-Podiatry Constitutional General appearance: comfortable Nutritional status: overweight Orientation: alert and oriented x3 Dermatological Exam Skin Temp - Right: Within Normal Limits Skin Texture - Right: Within Normal Limits Skin Elasticity - Right: Within Normal Limits Skin Tugor - Right: Within Normal Limits Hair Growth - Right: Absent Pigmentation - Right: Abnormal Skin Temp - Left: Within Normal Limits Skin Texture - Left: Within Normal Limits Skin Elasticity - Left: Within Normal Limits Skin Tugor - Left: Within Normal Limits Hair Growth - Left: Absent Pigmentation - Left: Abnormal Vascular/Lymphatic Exam R Dorsails Pedis: Palpable L Dorsails Pedis: Palpable R Posterior Tibial: Palpable L Posterior Tibial: Palpable Neurologic Exam Details No neurological deficits seen Muscle Strength Dorsiflexion (Right): Normal Plantarflexion (Right): Normal Inversion (Right): Normal Eversion (Right): Normal Digital (Right): Normal Dorsiflexion (Left): Normal Plantarflexion (Left): Normal Inversion (Left): Normal Eversion (Left): Normal Digital (Left): Normal Foot Range of Motion Dorsiflexion (Right): Normal Plantarflexion (Right): Normal Inversion (Right): Normal Eversion (Right): Normal Digital (Right): Normal Dorsiflexion (Left): Normal Plantarflexion (Left): Normal Inversion (Left): Normal Eversion (Left): Normal Digital (Left): Normal Extremities Edema: Left lower extremity: 4+, pitting, foot, ankle, leg Right lower extremity: 4+, pitting, foot, ankle, leg Lab and Radiology Results Laboratory Laboratory Tests Test 01/19/17 06:50 Creatinine 1.42 MG/DL Estimat Glomerular Filtration 51 ML/MIN Rate Microbiology Date/Time Procedure Status Source Growth 01/16/17 16:08 Gram Stain - Final Complete Abscess Breast 01/16/17 16:08 Wound Culture - Final Complete Klebsiella Pneumoniae 01/16/17 16:08 Acid Fast Stain - Final Resulted Abscess Breast NO ACID FAST BACILLI SEEN 01/16/17 16:08 Mycobacterial Culture Resulted Abscess Breast Pending 01/16/17 16:08 Fungal Smear - Final Resulted Abscess Breast NO FUNGAL ELEMENTS SEEN. 01/16/17 16:08 Fungal Culture Resulted Abscess Breast Pending Radiology Last Impressions Needle Aspiration Ultrasound 01/16/17 0000 Signed Impressions: Service Date/Time: Monday, January 16, 2017 15:27 - CONCLUSION: Ultrasound guided aspiration of right axillary abscess. Approximately 5 cc of bloody pus. Residual superficial abscess remains as the remaining fluid was too viscus to drain. Obie Mccloud MD Breast Ultrasound 01/16/17 0000 Signed Impressions: Service Date/Time: Monday, January 16, 2017 15:28 - CONCLUSION: Left breast edema/soft tissue swelling. No drainable abscess. Obie Mccloud MD Renal Ultrasound 01/08/17 0000 Signed Impressions: Service Date/Time: Sunday, January 08, 2017 18:32 - CONCLUSION: Symmetric enlarged kidneys bilaterally. No focal lesions seen.. Kulwinder Fish MD Chest X-Ray 01/05/17 [id number] Signed Impressions: Service Date/Time: December 22:37 - CONCLUSION: 1. Focal consolidation within the right medial lung base. Infiltrate versus rounded atelectasis. Followup study suggested to document resolution. 2. Cardiomegaly. Kulwinder Cahudhary Jr., MD Assessment/Plan Problem List: (1) Venous ulcer Status: Chronic (2) Morbid obesity Status: Chronic (3) Lymphedema Status: Chronic Additional Plans & Procedures PLAN: Discussed fluid management with the patient. She is to decrease her fluid intake. She may benefit from additional diuresis. Optive foam dressings with Donal bandages for compression. Patient may benefit from referral to the lymphedema clinic after discharge. Problem Qualifiers (1) Morbid obesity: Qualified Code: E66.01 - Morbid obesity due to excess calories Obie Murray DPM January 19, 2017 13:29
[2017-01-19 16:01] VITALS: BP 134/84; PULSE 86; RESP 16; TEMP 97.4; O2SAT 100
[2017-01-19] MEDS: MORPHINE SULFATE 4 MG/ML INJ IV PRN (18:23)
[2017-01-19 20:00] VITALS: BP_SYST 128; BP_SYST 133; BP_DIAS 76; BP_DIAS 78; PULSE 87; RESP 18; TEMP 97.5; TEMP 98; O2SAT 98; O2SAT 99
[2017-01-19] MEDS: traZODone HCL 50 MG TAB PO SCH (21:54)
[2017-01-19 22:46] LABS: C. DIFF EPI 027 PRESUMPTIVE NEGATIVE (NEGATIVE); C. DIFF TOXIN PCR NEGATIVE (NEGATIVE)
[2017-01-20] VITALS: BP 128/76; PULSE 87; RESP 18; TEMP 97.5; O2SAT 99
[2017-01-20] MEDS: CYCLOBENZAPRINE HCL 10 MG TAB PO PRN ×3 (00:16→21:38)
[2017-01-20] MEDS: VANCOMYCIN 500 MG VIAL (FOR ORAL USE ONLY) PO SCH ×4 (00:16→17:09)
[2017-01-20] MEDS: METOPROLOL TARTRATE 50 MG TAB PO SCH ×3 (00:16→17:08)
[2017-01-20] MEDS: MORPHINE SULFATE 4 MG/ML INJ IV PRN ×3 (00:17→17:10)
[2017-01-20] MEDS: ACETAMINOPHEN/HYDROcodone 325 MG/5 MG TAB PO PRN ×5 (01:56→21:38)
[2017-01-20 04:00] VITALS: BP 173/108; PULSE 78; RESP 18; TEMP 97.9; O2SAT 100
[2017-01-20] MEDS: hydrALAZINE HCL 25 MG TAB PO SCH ×3 (05:40→21:38)
[2017-01-20 08:24] VITALS: BP 159/106; PULSE 94; RESP 20; TEMP 97.1; O2SAT 98
[2017-01-20] MEDS: cloNIDine HCL 0.2 MG TAB PO SCH ×2 (08:41→21:38)
[2017-01-20] MEDS: ONDANSETRON HCL 4 MG/2 ML VIAL IVP PRN ×2 (08:42→17:09)
[2017-01-20] MEDS: PANTOPRAZOLE SODIUM 40 MG VIAL IV PUSH SCH ×2 (08:42→21:39)
[2017-01-20] MEDS: FUROSEMIDE 20 MG TAB PO SCH (08:52)
[2017-01-20] MEDS: SODIUM CHLORIDE 0.9% FLUSH 10 ML FLUSH IV FLUSH SCH ×2 (09:00→21:39)
--- NOTE | 2017-01-20 11:27 | PD.CONS ---
[facility] Service Nephrology Consult Requested By [facility] Reason for Consult BLESSING Primary Care Physician Jimmie Gutierrez History of Present Illness This is a morbidly obese 36 y/o AAF who was admitted 01/05 for left breast wound. She was admitted in November for necrotizing fasciitis, had i&d of the area and wound vac placement with antibiotic treatment. She suffered BLESSING that admission which was due to sepsis and vancomycin toxicity. her renal function this admission was normal at 0.83 (creatinine). On 01/08 her creatinine increased to 1.65, which improved to 1.08, but has increased past few days and is 1.42 today. She was on IV vancomycin, on 01/07 her vanc lefel was 33. She has since been taken off IV vanc. She has diarrhea, tested positive for C diff, and is on PO vanco. She is not on IVF. Podiatry has evaluated for persistent edema/ lymphedema, and recommended lymphedema clinic after discharge. She is a full code. (Amy Fernandes) Review of Systems Constitutional: DENIES: Fatigue Cardiovascular: COMPLAINS OF: Lower Extremity Edema, DENIES: Chest pain, Dyspnea on Exertion Gastrointestinal: COMPLAINS OF: Diarrhea, DENIES: Abdominal pain (Amy Fernandes) Past Family Social History Allergies: Coded Allergies: No Known Allergies (Unverified , 01/05/17) Past Medical History HTN morbid obesity lymphedema Past Surgical History I&D left breast Reported Medications Norvasc (Amlodipine Besylate) 5 Mg Tab 2.5 Mg PO DAILY 30 Days Metoprolol Tartrate 25 Mg Tab 50 Mg PO BID 30 Days Hydralazine (Hydralazine HCl) 25 Mg Tab 25 Mg PO Q12HR Walker with Front Wheels (Device) 1 Mis Mis 1 Ea .ROUTE DIRECTED bariatric front wheeled walker 3-in-1 Bedside Toilet (Device) 1 Mis Mis 1 Ea .ROUTE DIRECTED bariatric 3 in 1 bedisde commode Active Ordered Medications Current Medications Medications (Trade) Dose Ordered Sig/Candida Route Start Time Stop Time Status Last Admin (NS Flush) 2 ml UNSCH PRN IV FLUSH 01/05/17 20:15 (NS Flush) 2 ml BID IV FLUSH 01/05/17 21:00 01/20/17 09:00 (Zofran Inj) 4 mg Q6H PRN IVP 01/05/17 20:15 01/20/17 08:42 (Dulcolax Supp) 10 mg DAILY PRN RECTAL 01/05/17 20:15 (Tylenol) 650 mg Q6H PRN PO 01/05/17 20:15 01/14/17 20:31 ([place] 5-325 Mg) 1 tab Q4H PRN PO 01/05/17 20:15 01/20/17 09:51 (Pill Splitter) 1 ea UNSCH PRN OTHER 01/05/17 20:30 (Protonix Inj) 40 mg Q12H IV PUSH 01/06/17 21:00 01/20/17 08:42 (VANCOMYCIN for oral use only) 125 mg Q6HR PO 01/07/17 00:00 01/20/17 05:39 ([place] 5-325 Mg) 2 tab Q4H PRN PO 01/07/17 14:30 01/20/17 05:40 (Desyrel) 50 mg HS PO 01/08/17 22:00 01/19/17 21:54 (Apresoline) 25 mg Q8HR PO 01/10/17 22:00 01/20/17 05:40 (Lopressor) 50 mg Q8H PO 01/10/17 17:00 01/20/17 08:41 (Catapres) 0.1 mg Q6H PRN PO 01/10/17 16:15 01/11/17 23:56 (Morphine Inj) 1 mg BID PRN IV 01/11/17 16:00 01/20/17 00:17 (Lasix) 20 mg DAILY PO 01/15/17 09:00 01/18/17 09:01 (Catapres) 0.2 mg Q12HR PO 01/14/17 21:00 01/20/17 08:41 Cyclobenzaprine HCl 10 mg 10 mg TID PRN PO 01/17/17 18:56 01/21/17 21:44 01/20/17 09:00 (Rocephin Inj/NS Inj) 100 ml @ 200 mls/hr Q24H IV 01/19/17 13:00 01/19/17 13:22 Family History no hx of renal disorders Social History Single, lives with father unable to ambulate unemployed full code recently stopped smoking cigarettes no ETOH smoked marijuana (Amy Fernandes) Physical Exam Vital Signs Vital Signs Date Time Temp Pulse Resp B/P Pulse Ox O2 Delivery O2 Flow Rate FiO2 01/20/17 08:24 97.1 94 20 159/106 98 01/20/17 04:00 97.9 78 18 173/108 100 01/20/17 00:00 97.5 87 18 128/76 99 01/19/17 20:20 Room Air 01/19/17 20:00 98.0 87 18 133/78 98 01/19/17 20:00 97.5 87 18 128/76 99 01/19/17 16:01 97.4 86 16 134/84 100 01/19/17 12:18 97.2 80 16 133/84 98 Physical Exam Physical Exam Morbidly obese AAF, sitting up in bed awake, no neuro deficit lungs: diminished in bases due to body habitus S1/S2, quiet precordium abdomen obese, soft left breast/axilla with edema, dressing in place dependent edema, non pitting throughout Laboratory Laboratory Tests Test 01/19/17 17:11 Stool C. difficile Toxin (PCR) NEGATIVE Stl C. difficile Toxin PRESUMPTIVE Epiderm 027 NEGATIVE Date/Time Procedure Status Source Growth 01/16/17 16:08 Gram Stain - Final Complete Abscess Breast 01/16/17 16:08 Wound Culture - Final Complete Klebsiella Pneumoniae 01/16/17 16:08 Fungal Smear - Final Resulted Abscess Breast NO FUNGAL ELEMENTS SEEN. 01/16/17 16:08 Fungal Culture Resulted Abscess Breast Pending 01/16/17 16:08 Acid Fast Stain - Final Resulted Abscess Breast NO ACID FAST BACILLI SEEN 01/16/17 16:08 Mycobacterial Culture Resulted Abscess Breast Pending (Amy Fernandes) Result Diagram: 01/17/17 0920 01/19/17 0650 Imaging Last Impressions Needle Aspiration Ultrasound 01/16/17 0000 Signed Impressions: Service Date/Time: Monday, January 16, 2017 15:27 - CONCLUSION: Ultrasound guided aspiration of right axillary abscess. Approximately 5 cc of bloody pus. Residual superficial abscess remains as the remaining fluid was too viscus to drain. Obie Mccloud MD Breast Ultrasound 01/16/17 0000 Signed Impressions: Service Date/Time: Monday, January 16, 2017 15:28 - CONCLUSION: Left breast edema/soft tissue swelling. No drainable abscess. Obie Mccloud MD Renal Ultrasound 01/08/17 0000 Signed Impressions: Service Date/Time: Sunday, January 08, 2017 18:32 - CONCLUSION: Symmetric enlarged kidneys bilaterally. No focal lesions seen.. Kulwinder Fish MD Chest X-Ray 01/05/17 2225 Signed Impressions: Service Date/Time: December 22:37 - CONCLUSION: 1. Focal consolidation within the right medial lung base. Infiltrate versus rounded atelectasis. Followup study suggested to document resolution. 2. Cardiomegaly. Kulwinder Chaudhary Jr., MD (Amy Fernandes) Assessment and Plan Problem List: (1) BLESSING (acute kidney injury) Plan: in a pt with normal renal function at baseline no proteinuria, no UTI creatinine increased at the same time elevated vancomycin levels were measured, may have vancomycin induced nephrotoxicity the vancomycin has been stopped renal function declined past few days, may be due to diarrhea renal US negative has edema, see below. avoid nephrotoxins monitor urine output daily renal panel (2) Edema Plan: chronic lymphedema on lasix daily may benefit from lymphedema clinic after discharge (3) Hypertension Plan: continue BP medications avoid CAT (Amy Fernandes) Problem List: (1) BLESSING (acute kidney injury) Plan: in a pt with normal renal function at baseline no proteinuria, no UTI creatinine increased at the same time elevated vancomycin levels were measured, may have vancomycin induced nephrotoxicity the vancomycin has been stopped renal function declined past few days, may be due to diarrhea renal US negative has edema, see below. avoid nephrotoxins monitor urine output daily renal panel (2) Edema Plan: chronic lymphedema on lasix daily may benefit from lymphedema clinic after discharge (3) Hypertension Plan: continue BP medications avoid CAT Assessment and Plan patient was seen and examined. BLESSING could be due to renal hypoperfusion. Vancomycin induced nephrotoxicity is a possibility. Monitor urine output and renal function. May need to hold diuretic. (Juan Francisco Cruz MD) Amy Fernandes January 20, 2017 11:27 Juan Francisco Cruz MD January 20, 2017 14:13
[2017-01-20 12:29] VITALS: BP 132/87; PULSE 82; RESP 20; TEMP 97.6; O2SAT 100
[2017-01-20] MEDS: cefTRIAXone INJ 2,000 MG in SODIUM CHLORIDE 0.9% INJ 100 ML IV SCH (13:26)
--- NOTE | 2017-01-20 14:41 | HHI.PR ---
Subjective Remarks Complaints of pain in her legs and associated edema. Says she has been taking water pill in the past. She also has chest pain with dressing changes. No fever or chills. No n/v/d/c. Objective Vitals Vital Signs Date Time Temp Pulse Resp B/P Pulse Ox O2 Delivery O2 Flow Rate FiO2 01/20/17 12:29 97.6 82 20 132/87 100 01/20/17 08:24 97.1 94 20 159/106 98 01/20/17 04:00 97.9 78 18 173/108 100 01/20/17 00:00 97.5 87 18 128/76 99 01/19/17 20:20 Room Air 01/19/17 20:00 98.0 87 18 133/78 98 01/19/17 20:00 97.5 87 18 128/76 99 01/19/17 16:01 97.4 86 16 134/84 100 I/O 01/19/17 01/19/17 01/19/17 01/20/17 01/20/17 01/20/17 07:00 15:00 23:00 07:00 15:00 23:00 Intake Total 1290 ml 1540 ml Balance 1290 ml 1540 ml Intake Oral 890 ml 1440 ml IV Total 400 ml 100 ml # Voids 4 2 5 1 5 # Bowel Movements 3 1 4 1 2 Result Diagram: 01/17/17 0920 01/19/17 0650 Imaging Last Impressions Needle Aspiration Ultrasound 01/16/17 0000 Signed Impressions: Service Date/Time: Monday, January 16, 2017 15:27 - CONCLUSION: Ultrasound guided aspiration of right axillary abscess. Approximately 5 cc of bloody pus. Residual superficial abscess remains as the remaining fluid was too viscus to drain. Obie Mccloud MD Breast Ultrasound 01/16/17 0000 Signed Impressions: Service Date/Time: Monday, January 16, 2017 15:28 - CONCLUSION: Left breast edema/soft tissue swelling. No drainable abscess. Obie Mccloud MD Renal Ultrasound 01/08/17 0000 Signed Impressions: Service Date/Time: Sunday, January 08, 2017 18:32 - CONCLUSION: Symmetric enlarged kidneys bilaterally. No focal lesions seen.. Kulwinder Fish MD Chest X-Ray 01/05/17 841 Signed Impressions: Service Date/Time: December 22:37 - CONCLUSION: 1. Focal consolidation within the right medial lung base. Infiltrate versus rounded atelectasis. Followup study suggested to document resolution. 2. Cardiomegaly. Kulwinder Chaudhary Jr., MD Objective Remarks GENERAL: This is a well-nourished, well-developed patient, in no apparent distress. SKIN: Warm skin on the left breast, wound VAC applied to the left chest under her axilla HEAD: Atraumatic. Normocephalic. EYES: Pupils equal round and reactive. Extraocular motions intact. No scleral icterus. ENT: Nose without bleeding, or drainage, Airway patent. NECK: Trachea midline. Supple CHEST: Midaxillary wound looks clean, CARDIOVASCULAR: Regular rate and rhythm without murmurs, gallops, or rubs. RESPIRATORY: Fair air entry bilaterally. No wheezes, rales, or rhonchi. GASTROINTESTINAL: Abdomen soft, non-tender, nondistended. Positive bowel sounds MUSCULOSKELETAL: Extremities +2 edema on the LLE, +2 RLE NEUROLOGICAL: Awake and alert. Moves all extremity. Normal speech.no focal neurological deficit Procedures 01/06- I and D with WOund VAC application A/P Problem List: (1) Sepsis ICD Code: A41.9 Status: Acute (2) Left breast abscess ICD Code: N61.1 Status: Acute (3) Hypokalemia ICD Code: E87.6 Status: Acute (4) Diarrhea ICD Code: R19.7 Status: Acute (5) Necrotizing fasciitis ICD Code: M72.6 Status: Acute (6) Lymphedema ICD Code: I89.0 Status: Chronic (7) HTN (hypertension) ICD Code: I10 Status: Acute (8) Morbid obesity ICD Code: E66.01 Status: Chronic Assessment and Plan - Status post breast Fluid aspiration growing Klebsiella pneumonia pansensitive ED, continue antibiotic per ID>> plan to change to CFTX with intent to oral abx transition cont po vanco x 2 wks after all abx stopped rechk stool for C.diff - BLESSING with hypernatremia: Resolving , status post iv fluid, no eosinophil in the urine unlikely related to Vanco, creatinine reach plateau around 1-1.4, will consult nephrology - Sepsis: source Left breast abscess S/P I & D. Continue w/ IV Abx per ID recommendation, appreciate their consult followed her recs for antibiotic. - Necrotizing Fasciitis: Recent admit 11/16-12/20/16 for Sepsis/Nec Fasc to Left Axilla/Chest Wall s/p emergent debridement by Dr. Lainez w/ placement of Wound VAC, currently on [facility]. Following w/ Dr. Lainez as outpatient, last visit w / no complications, next visit 01/10/17. Will consult for further eval. Consult Wound Management for assistance w/ Wound Vac. - C. difficile diarrhea: Symptom improved, on by mouth Vanco with iv per ID, monitor clinical improvement - Lymphedema: Chronic. Worsening RLE w/ increased swelling. Previously on Lasix, will resume. we will consult podiatry and at the same time , educated pt about the need to keep leg elevated and applying compression stocking. Will also check doppler US tp r/o DVT - Hypokalemia: lasix po prn , keep leg elevated , compression stocking , monitor BMP - HTN: Not optimal patient used to be on amlodipine, stop Norvasc due to her lower extremity lymphedema (may cause worsening), start clonidine for now until creatinine improved then patient may go on CAT inhibitor - Morbid Obesity: Chronic. Limited mobility due to body habitus, PT as needed. - DVT Prophylaxis: Mechanical contraindication secondary to severe LE edema. Pharmacologic contraindication secondary to Hemoccult +, high risk for bleeding. Will monitor - Social work for d/c planning as needed. Discharge Planning When cleared by surgery Problem Qualifiers (1) Morbid obesity: Qualified Code: E66.01 - Morbid obesity due to excess calories Gabby Casiano MD January 20, 2017 14:41
--- NOTE | 2017-01-20 16:43 | HHI.PR ---
Subjective Subjective Notes Resting in bed C/p increase pain in LEFT breast Objective Vitals/I&O Vital Signs Date Time Temp Pulse Resp B/P Pulse Ox O2 Delivery O2 Flow Rate FiO2 01/20/17 12:29 97.6 82 20 132/87 100 01/19/17 20:20 Room Air Labs Laboratory Tests Test 01/19/17 17:11 Stool C. difficile Toxin (PCR) NEGATIVE Stl C. difficile Toxin PRESUMPTIVE Epiderm 027 NEGATIVE Date/Time Procedure Status Source Growth 01/16/17 16:08 Gram Stain - Final Complete Abscess Breast 01/16/17 16:08 Wound Culture - Final Complete Klebsiella Pneumoniae 01/16/17 16:08 Fungal Smear - Final Resulted Abscess Breast NO FUNGAL ELEMENTS SEEN. 01/16/17 16:08 Fungal Culture Resulted Abscess Breast Pending 01/16/17 16:08 Acid Fast Stain - Final Resulted Abscess Breast NO ACID FAST BACILLI SEEN 01/16/17 16:08 Mycobacterial Culture Resulted Abscess Breast Pending Cardiovascular: Regular Lungs: Clear Abdomen: Non-distended, Non-tender Narrative Exam LEFT breast---small indurated hard fluid collection at 4 o'clock position; dressing removed; no purulent drainage LEFT axillary--- open wound with good granulation of tissue; 3 areas of tunneling; packing removed; no purulent draining RIGHT axillary --- prior spontaneously draining abscess now closed; no palpable area of fluid collection A/P Assessment and Plan 36 year old female s/p NG of LEFT breast and axillary; re admitted with small LEFT breast abscess (s/p I&D) -US LEFT breast to eval for abscess -Okay to shower between dressing changes -Wet to dry dressing with packing to LEFT axillary---increased frequency of dressing change to 4 times daily -Wet to dry dressing to LEFT breast---increased frequency of dressing change to 4 times daily -Pain control -Regular diet -ID managing antibiotics Attending Statement patient seen at bedside increased left breast pain recheck us Attestation The exam, history, and the medical decision-making described in the above note were completed with the assistance of the mid-level provider. I reviewed and agree with the findings presented. I attest that I had a [id number] encounter with the patient on the same day, and personally performed and documented my assessment and findings in the medical record. Priyanka Ocasio January 20, 2017 16:43 Rubin Mayes MD January 26, 2017 22:09
[2017-01-20 17:07] VITALS: BP 190/105; PULSE 96; RESP 19; TEMP 97.8; O2SAT 100
[2017-01-20 20:27] VITALS: BP 139/92; PULSE 91; RESP 17; TEMP 98.6; O2SAT 97
[2017-01-20] MEDS: traZODone HCL 50 MG TAB PO SCH (21:38)
--- NOTE | 2017-01-20 22:07 | HHI.IDPN ---
Subjective Subjective Remarks pt seen with Ras Ocasio ABBY this is a delaeyd entry pt was seen today around 1600 she co worsening swelling and pain of her L breast her diarrhea improved her repeat C.diff negative Antibiotics CFTX po vanco Allergies: Coded Allergies: No Known Allergies (Unverified , 01/05/17) Objective . Vital Signs Date Time Temp Pulse Resp B/P Pulse Ox O2 Delivery O2 Flow Rate FiO2 01/20/17 20:27 98.6 91 17 139/92 97 01/20/17 17:07 97.8 96 19 190/105 100 01/20/17 12:29 97.6 82 20 132/87 100 01/20/17 08:24 97.1 94 20 159/106 98 01/20/17 04:00 97.9 78 18 173/108 100 01/20/17 00:00 97.5 87 18 128/76 99 01/19/17 01/19/17 01/20/17 15:00 23:00 07:00 Intake Total 1290 ml Balance 1290 ml Intake Oral 890 ml IV Total 400 ml # Voids 2 5 1 # Bowel Movements 1 4 1 . Laboratory Tests Test 01/19/17 06:50 Creatinine 1.42 MG/DL Estimat Glomerular Filtration 51 ML/MIN Rate Imaging Last Impressions Needle Aspiration Ultrasound 01/16/17 0000 Signed Impressions: Service Date/Time: Monday, January 16, 2017 15:27 - CONCLUSION: Ultrasound guided aspiration of right axillary abscess. Approximately 5 cc of bloody pus. Residual superficial abscess remains as the remaining fluid was too viscus to drain. Obie Mccloud MD Breast Ultrasound 01/16/17 0000 Signed Impressions: Service Date/Time: Monday, January 16, 2017 15:28 - CONCLUSION: Left breast edema/soft tissue swelling. No drainable abscess. Obie Mccloud MD Renal Ultrasound 01/08/17 0000 Signed Impressions: Service Date/Time: Sunday, January 08, 2017 18:32 - CONCLUSION: Symmetric enlarged kidneys bilaterally. No focal lesions seen.. Kulwinder Fish MD Chest X-Ray 01/05/17 [id number] Signed Impressions: Service Date/Time: December 22:37 - CONCLUSION: 1. Focal consolidation within the right medial lung base. Infiltrate versus rounded atelectasis. Followup study suggested to document resolution. 2. Cardiomegaly. Kulwinder Chaudhary Jr., MD Physical Exam CONSTITUTIONAL/GENERAL: This is a morbidly obese patient, in no apparent distress. SKIN: L breast looks more edematous and + tender to palpation , + more prominent erythema Diffuse induraion no area of fluctuance + erythema Small wound in LOQ clean nearly healed, min serosang dc L axilla with fully granulted wound, healing nicely, henrry HEAD: Atraumatic. Normocephalic. EYES: Pupils equal and round and reactive. Extraocular motions intact. No scleral icterus. No injection or drainage. Fundi not examined. CARDIOVASCULAR: Regular rate and rhythm without murmurs, gallops, or rubs. RESPIRATORY/CHEST: Symmetric, unlabored respirations. Clear to auscultation. GASTROINTESTINAL: Abdomen soft, non-tender, nondistended. Bowel sounds present. MUSCULOSKELETAL: Extremities without clubbing, cyanosis, or edema. NEUROLOGICAL: Awake and alert. Non focal Assessment & Plan Remarks Nec fas L axilla, resolved New abscess L breast; clx with skin everett Kleb pneumo booth S Diarrhea with recent abx exposure C.diff + - hypervirulent 027 strain - - clinically returened after zosyn starte Mild renal insufficiency ? vanco contributing - will change to CFTX with intent to oral abx transition (augmentin) - cont po vanco x 2 wks after all abx stopped - repeat US of the breast to ro unresolving/ recurrent collection Rachel Marsh MD January 20, 2017 22:07
--- NOTE | 2017-01-20 22:11 | RADRPT ---
EXAM DATE/TIME: 01/20/2017 20:20 [place] COMPARISON: No previous studies available for comparison. INDICATIONS : Bilateral leg swelling. MEDICAL HISTORY : Hypertension. Ovarian cyst. Arthritis. Chronic lymphedema. Cdiff. Blood transfusion. SURGICAL HISTORY : Drain placement and removal left breast. Breast biopsy. ENCOUNTER: Subsequent ACUITY: >1 year PAIN SCORE: 7/10 LOCATION: Bilateral legs. TECHNIQUE: Venous ultrasound of the left and right leg was performed from the inguinal ligament to the proximal calf. Real-time, color Doppler and spectral tracing, compression and augmentation techniques were us ed. FINDINGS: RIGHT LEG: There is normal compressibility of the deep venous system from the inguinal region to the proximal ca lf. No echogenic clot is seen in the lumen of the common femoral, femoral, popliteal, and posterior tibial veins. There is a normal response of the venous system to proximal and distal augmentation an d respiration. LEFT LEG: There is normal compressibility of the deep venous system from the inguinal region to the proximal ca lf. No echogenic clot is seen in the lumen of the common femoral, femoral, popliteal, and posterior tibial veins. There is a normal response of the venous system to proximal and distal augmentation an d respiration. Bilateral subcutaneous edema present. CONCLUSION: No DVT of either lower extremity. Aristides Riley MD on January 20, 2017 at 22:09 Board Certified Radiologist. This report was verified electronically.
[2017-01-21 00:09] VITALS: BP 135/96; PULSE 89; RESP 17; TEMP 98.7; O2SAT 98
[2017-01-21] MEDS: VANCOMYCIN 500 MG VIAL (FOR ORAL USE ONLY) PO SCH ×5 (00:54→23:33)
[2017-01-21] MEDS: METOPROLOL TARTRATE 50 MG TAB PO SCH ×3 (00:54→18:00)
[2017-01-21] MEDS: ACETAMINOPHEN/HYDROcodone 325 MG/5 MG TAB PO PRN ×5 (01:27→21:35)
[2017-01-21] MEDS: hydrALAZINE HCL 25 MG TAB PO SCH ×3 (05:29→21:35)
[2017-01-21] MEDS: CYCLOBENZAPRINE HCL 10 MG TAB PO PRN ×3 (05:29→18:00)
[2017-01-21 05:32] VITALS: BP 133/95; PULSE 80; RESP 17; TEMP 98.2; O2SAT 98
[2017-01-21 08:00] VITALS: BP 172/105; PULSE 79; RESP 21; TEMP 97.9; O2SAT 97
[2017-01-21] MEDS: PANTOPRAZOLE SODIUM 40 MG VIAL IV PUSH SCH ×2 (09:03→21:35)
[2017-01-21] MEDS: SODIUM CHLORIDE 0.9% FLUSH 10 ML FLUSH IV FLUSH SCH ×2 (09:03→21:35)
[2017-01-21] MEDS: FUROSEMIDE 20 MG TAB PO SCH (09:04)
[2017-01-21] MEDS: cloNIDine HCL 0.2 MG TAB PO SCH ×2 (09:04→21:35)
[2017-01-21 09:45] LABS: BICARBONATE 26.4 MEQ/L (21.0-32.0)
[2017-01-21] MEDS ORDERED: PHARMACY ORDERED LAB ONE (10:45)
[2017-01-21 12:00] VITALS: BP 131/86; PULSE 82; RESP 20; TEMP 97.8; O2SAT 98
[2017-01-21] MEDS: ONDANSETRON HCL 4 MG/2 ML VIAL IVP PRN ×2 (12:53→18:00)
[2017-01-21] MEDS: MORPHINE SULFATE 4 MG/ML INJ IV PRN ×2 (12:53→23:34)
[2017-01-21] MEDS: cefTRIAXone INJ 2,000 MG in SODIUM CHLORIDE 0.9% INJ 100 ML IV SCH (12:54)
--- NOTE | 2017-01-21 12:57 | HHI.PR ---
Subjective Remarks At the margin of the bed. Says she has pain in her legs and edema. There is also swelling in her right breast same line yesterday. No much erythema. No fevers or chills. No n/v/d/c. Objective Vitals Vital Signs Date Time Temp Pulse Resp B/P Pulse Ox O2 Delivery O2 Flow Rate FiO2 01/21/17 12:00 97.8 82 20 131/86 98 01/21/17 08:00 97.9 79 21 172/105 97 01/21/17 05:32 98.2 80 17 133/95 98 01/21/17 00:09 98.7 89 17 135/96 98 01/20/17 20:27 98.6 91 17 139/92 97 01/20/17 17:07 97.8 96 19 190/105 100 I/O 01/20/17 01/20/17 01/20/17 01/21/17 01/21/17 01/21/17 07:00 15:00 23:00 07:00 15:00 23:00 Intake Total 1540 ml 180 ml 480 ml Output Total 100 ml 300 ml Balance 1540 ml 80 ml 180 ml Intake Oral 1440 ml 80 ml 480 ml IV Total 100 ml 100 ml Output Urine Total 100 ml 300 ml # Voids 1 5 1 # Bowel Movements 1 2 1 Result Diagram: 01/17/17 0920 01/21/17 0815 Imaging Last Impressions Lower Extremity Ultrasound 01/20/17 0000 Signed Impressions: Service Date/Time: Friday, January 20, 2017 20:20 - CONCLUSION: No DVT of either lower extremity. Aristides Riley MD Needle Aspiration Ultrasound 01/16/17 0000 Signed Impressions: Service Date/Time: Monday, January 16, 2017 15:27 - CONCLUSION: Ultrasound guided aspiration of right axillary abscess. Approximately 5 cc of bloody pus. Residual superficial abscess remains as the remaining fluid was too viscus to drain. Obie Mccloud MD Breast Ultrasound 01/16/17 0000 Signed Impressions: Service Date/Time: Monday, January 16, 2017 15:28 - CONCLUSION: Left breast edema/soft tissue swelling. No drainable abscess. Obie Mccloud MD Renal Ultrasound 01/08/17 0000 Signed Impressions: Service Date/Time: Sunday, January 08, 2017 18:32 - CONCLUSION: Symmetric enlarged kidneys bilaterally. No focal lesions seen.. Kulwinder Fish MD Chest X-Ray 01/05/17 2212 Signed Impressions: Service Date/Time: December 22:37 - CONCLUSION: 1. Focal consolidation within the right medial lung base. Infiltrate versus rounded atelectasis. Followup study suggested to document resolution. 2. Cardiomegaly. Kulwinder Chaudhary Jr., MD Objective Remarks GENERAL: This is a well-nourished, well-developed patient, in no apparent distress. SKIN: Warm skin on the left breast, wound VAC applied to the left chest under her axilla HEAD: Atraumatic. Normocephalic. EYES: Pupils equal round and reactive. Extraocular motions intact. No scleral icterus. ENT: Nose without bleeding, or drainage, Airway patent. NECK: Trachea midline. Supple CHEST: Midaxillary wound looks clean, CARDIOVASCULAR: Regular rate and rhythm without murmurs, gallops, or rubs. RESPIRATORY: Fair air entry bilaterally. No wheezes, rales, or rhonchi. GASTROINTESTINAL: Abdomen soft, non-tender, nondistended. Positive bowel sounds MUSCULOSKELETAL: Extremities +2 edema on the LLE, +2 RLE NEUROLOGICAL: Awake and alert. Moves all extremity. Normal speech.no focal neurological deficit Procedures 01/06- I and D with WOund VAC application A/P Problem List: (1) Sepsis ICD Code: A41.9 Status: Acute (2) Left breast abscess ICD Code: N61.1 Status: Acute (3) Hypokalemia ICD Code: E87.6 Status: Acute (4) Diarrhea ICD Code: R19.7 Status: Acute (5) Necrotizing fasciitis ICD Code: M72.6 Status: Acute (6) Lymphedema ICD Code: I89.0 Status: Chronic (7) HTN (hypertension) ICD Code: I10 Status: Acute (8) Morbid obesity ICD Code: E66.01 Status: Chronic Assessment and Plan - Status post breast Fluid aspiration growing Klebsiella pneumonia pansensitive ED, continue antibiotic per ID>> plan to change to CFTX with intent to oral abx transition cont po vanco x 2 wks after all abx stopped rechk stool for C.diff neg - BLESSING with hypernatremia: Resolving , status post iv fluid, no eosinophil in the urine unlikely related to Vanco, creatinine reach plateau around 1-1.4, will consult nephrology - Sepsis: source Left breast abscess S/P I & D. Continue w/ IV Abx per ID recommendation, appreciate their consult followed her recs for antibiotic. - Necrotizing Fasciitis: Recent admit 11/16-12/20/16 for Sepsis/Nec Fasc to Left Axilla/Chest Wall s/p emergent debridement by Dr. Lainez w/ placement of Wound VAC, currently on [facility]. Following w/ Dr. Lainez as outpatient, last visit w / no complications, next visit 01/10/17. Will consult for further eval. Consult Wound Management for assistance w/ Wound Vac. - C. difficile diarrhea: Symptom improved, on by mouth Vanco with iv per ID, monitor clinical improvement - Lymphedema: Chronic. Worsening RLE w/ increased swelling. Previously on Lasix, will resume. we will consult podiatry and at the same time , educated pt about the need to keep leg elevated and applying compression stocking. Will also check doppler US tp r/o DVT - Hypokalemia: lasix po prn , keep leg elevated , compression stocking , monitor BMP - HTN: Not optimal patient used to be on amlodipine, stop Norvasc due to her lower extremity lymphedema (may cause worsening), start clonidine for now until creatinine improved then patient may go on CAT inhibitor - Morbid Obesity: Chronic. Limited mobility due to body habitus, PT as needed. - DVT Prophylaxis: Mechanical contraindication secondary to severe LE edema. Pharmacologic contraindication secondary to Hemoccult +, high risk for bleeding. Will monitor - Social work for d/c planning as needed. Discharge Planning When cleared by surgery Problem Qualifiers (1) Morbid obesity: Qualified Code: E66.01 - Morbid obesity due to excess calories Gabby Casiano MD January 21, 2017 12:57
[2017-01-21 16:00] VITALS: BP 147/95; PULSE 90; RESP 20; TEMP 97.5; O2SAT 91
--- NOTE | 2017-01-21 16:07 | HHI.NPPN ---
Subjective Additional Remarks Patient is alert, sitting on chair, feeling better. Objective Data Data 01/20/17 01/21/17 19:00 07:00 Intake Total 1720 ml 480 ml Output Total 100 ml 300 ml Balance 1620 ml 180 ml Intake Oral 1520 ml 480 ml IV Total 200 ml Output Urine Total 100 ml 300 ml # Voids 5 1 # Bowel Movements 2 1 Vital Signs Date Time Temp Pulse Resp B/P Pulse Ox O2 Delivery O2 Flow Rate FiO2 01/21/17 12:00 97.8 82 20 131/86 98 01/21/17 08:00 97.9 79 21 172/105 97 01/21/17 05:32 98.2 80 17 133/95 98 01/21/17 00:09 98.7 89 17 135/96 98 01/20/17 20:27 98.6 91 17 139/92 97 01/20/17 17:07 97.8 96 19 190/105 100 -: 01/17/17 0920 01/21/17 0815 Physical Exam General Appearance: No Acute Distress, Comfortable Eyes Eye Exam: Pupils Equal Neck Neck Exam: Neck Supple Pulmonary Resp Exam: Breath Sounds Equal, No Distress, Rhonchi, Decreased Bases Cardiology CV Exam: Regular, Normal Sinus Rhythm Gastrointestinal/Abdomen GI Exam: Soft, Non-Tender, Bowel Sounds Present, Distended Extremeties Extremities Exam: Moderate Edema, Pitting Edema Neurologic Neuro Exam: Alert, Awake, Oriented Psychiatric Psych Exam: Appropriate Responses Assessment/Plan Problem List: (1) BLESSING (acute kidney injury) Plan: in a pt with normal renal function at baseline no proteinuria, no UTI creatinine increased at the same time elevated vancomycin levels were measured, may have vancomycin induced nephrotoxicity the vancomycin has been stopped renal function declined past few days, may be due to diarrhea renal US negative has edema, see below. avoid nephrotoxins monitor urine output Creatinine is improving. Now only on PO Vanco. (2) Edema Plan: chronic lymphedema on lasix daily may benefit from lymphedema clinic after discharge (3) Hypertension Plan: continue BP medications avoid CAT Paulino Shultz MD January 21, 2017 16:07
[2017-01-21 20:00] VITALS: BP 182/96; PULSE 97; RESP 18; TEMP 98.6; O2SAT 99
[2017-01-21] MEDS: cloNIDine HCL 0.1 MG TAB PO PRN (21:35)
[2017-01-21] MEDS: traZODone HCL 50 MG TAB PO SCH (21:35)
[2017-01-21] MEDS: ACETAMINOPHEN 325 MG TAB PO PRN (23:37)
[2017-01-22 00:58] VITALS: BP 134/82; PULSE 76; RESP 18; TEMP 97.4; O2SAT 99
[2017-01-22] MEDS: METOPROLOL TARTRATE 50 MG TAB PO SCH ×3 (01:00→17:13)
[2017-01-22] MEDS: ACETAMINOPHEN/HYDROcodone 325 MG/5 MG TAB PO PRN ×5 (01:30→23:26)
[2017-01-22 05:22] VITALS: BP 151/88; PULSE 79; RESP 18; TEMP 97.1; O2SAT 99
[2017-01-22] MEDS: hydrALAZINE HCL 25 MG TAB PO SCH ×3 (05:38→23:25)
[2017-01-22] MEDS: VANCOMYCIN 500 MG VIAL (FOR ORAL USE ONLY) PO SCH ×4 (05:38→23:49)
[2017-01-22 08:00] VITALS: BP 143/87; PULSE 75; RESP 18; TEMP 97.2; O2SAT 98
[2017-01-22] MEDS: SODIUM CHLORIDE 0.9% FLUSH 10 ML FLUSH IV FLUSH SCH ×2 (09:00→21:00)
[2017-01-22] MEDS: FUROSEMIDE 20 MG TAB PO SCH (09:01)
[2017-01-22] MEDS: cloNIDine HCL 0.2 MG TAB PO SCH ×2 (09:01→23:26)
[2017-01-22] MEDS: PANTOPRAZOLE SODIUM 40 MG VIAL IV PUSH SCH ×2 (09:02→23:26)
--- NOTE | 2017-01-22 09:34 | HHI.NPPN ---
Subjective Additional Remarks Patient is alert, eating well, no SOB. Objective Data Data 01/21/17 01/22/17 19:00 07:00 Intake Total 720 ml Output Total 400 ml 250 ml Balance -400 ml 470 ml Intake Oral 720 ml IV Total 0 ml Output Urine Total 400 ml 250 ml # Voids 1 # Bowel Movements 2 1 Vital Signs Date Time Temp Pulse Resp B/P Pulse Ox O2 Delivery O2 Flow Rate FiO2 01/22/17 08:00 97.2 75 18 143/87 98 01/22/17 05:22 97.1 79 18 151/88 99 01/22/17 00:58 97.4 76 18 134/82 99 01/21/17 20:00 98.6 97 18 182/96 99 01/21/17 16:00 97.5 90 20 147/95 91 01/21/17 12:00 97.8 82 20 131/86 98 -: 01/21/17 0815 Physical Exam General Appearance: No Acute Distress, Comfortable Eyes Eye Exam: Pupils Equal Neck Neck Exam: Neck Supple Pulmonary Resp Exam: Breath Sounds Equal, No Distress, Rhonchi, Decreased Bases Cardiology CV Exam: Regular, Normal Sinus Rhythm Gastrointestinal/Abdomen GI Exam: Soft, Non-Tender, Bowel Sounds Present, Distended Extremeties Extremities Exam: Moderate Edema, Pitting Edema Neurologic Neuro Exam: Alert, Awake, Oriented Psychiatric Psych Exam: Appropriate Responses Assessment/Plan Problem List: (1) BLESSING (acute kidney injury) Plan: in a pt with normal renal function at baseline no proteinuria, no UTI creatinine increased at the same time elevated vancomycin levels were measured, may have vancomycin induced nephrotoxicity the vancomycin has been stopped renal function declined past few days, may be due to diarrhea renal US negative has edema, see below. avoid nephrotoxins monitor urine output No new BMP, Creatinine was improving. Now only on PO Vanco. (2) Edema Plan: chronic lymphedema on lasix daily may benefit from lymphedema clinic after discharge (3) Hypertension Plan: continue BP medications avoid CAT Paulino Shultz MD January 22, 2017 09:34
--- NOTE | 2017-01-22 10:35 | HHI.PR ---
Subjective Remarks Plan for US breast to evaluate, spoke with radiology service. patient says she still has LE pain, No DVT on US will start lyrica. Says she is having LE edema improving. Says she is also urinating well. No fever or chills. Chest pain intermittent with movement and dressing changes. Objective Vitals Vital Signs Date Time Temp Pulse Resp B/P Pulse Ox O2 Delivery O2 Flow Rate FiO2 01/22/17 08:00 97.2 75 18 143/87 98 01/22/17 05:22 97.1 79 18 151/88 99 01/22/17 00:58 97.4 76 18 134/82 99 01/21/17 20:00 98.6 97 18 182/96 99 01/21/17 16:00 97.5 90 20 147/95 91 01/21/17 12:00 97.8 82 20 131/86 98 I/O 01/21/17 01/21/17 01/21/17 01/22/17 01/22/17 01/22/17 07:00 15:00 23:00 07:00 15:00 23:00 Intake Total 480 ml 720 ml 0 ml Output Total 300 ml 400 ml 250 ml Balance 180 ml -400 ml 720 ml -250 ml Intake Oral 480 ml 720 ml IV Total 0 ml Output Urine Total 300 ml 400 ml 250 ml # Voids 1 1 # Bowel Movements 1 2 1 0 Result Diagram: 01/21/17 0815 Imaging Last Impressions Lower Extremity Ultrasound 01/20/17 0000 Signed Impressions: Service Date/Time: Friday, January 20, 2017 20:20 - CONCLUSION: No DVT of either lower extremity. Aristides Riley MD Needle Aspiration Ultrasound 01/16/17 0000 Signed Impressions: Service Date/Time: Monday, January 16, 2017 15:27 - CONCLUSION: Ultrasound guided aspiration of right axillary abscess. Approximately 5 cc of bloody pus. Residual superficial abscess remains as the remaining fluid was too viscus to drain. Obie Mccloud MD Breast Ultrasound 01/16/17 0000 Signed Impressions: Service Date/Time: Monday, January 16, 2017 15:28 - CONCLUSION: Left breast edema/soft tissue swelling. No drainable abscess. Obie Mccloud MD Renal Ultrasound 01/08/17 0000 Signed Impressions: Service Date/Time: Sunday, January 08, 2017 18:32 - CONCLUSION: Symmetric enlarged kidneys bilaterally. No focal lesions seen.. Kulwinder Fish MD Chest X-Ray 01/05/17 8075 Signed Impressions: Service Date/Time: December 22:37 - CONCLUSION: 1. Focal consolidation within the right medial lung base. Infiltrate versus rounded atelectasis. Followup study suggested to document resolution. 2. Cardiomegaly. Kulwinder Chaudhary Jr., MD Objective Remarks GENERAL: This is a well-nourished, well-developed patient, in no apparent distress. SKIN: Warm skin on the left breast, wound VAC applied to the left chest under her axilla HEAD: Atraumatic. Normocephalic. EYES: Pupils equal round and reactive. Extraocular motions intact. No scleral icterus. ENT: Nose without bleeding, or drainage, Airway patent. NECK: Trachea midline. Supple CHEST: Midaxillary wound looks clean. However the left breast is more edematous and painful, mild erythema. CARDIOVASCULAR: Regular rate and rhythm without murmurs, gallops, or rubs. RESPIRATORY: Fair air entry bilaterally. No wheezes, rales, or rhonchi. GASTROINTESTINAL: Abdomen soft, non-tender, nondistended. Positive bowel sounds MUSCULOSKELETAL: Extremities +2 edema on the LLE, +2 RLE NEUROLOGICAL: Awake and alert. Moves all extremity. Normal speech.no focal neurological deficit Procedures 01/06- I and D with WOund VAC application A/P Problem List: (1) Sepsis ICD Code: A41.9 Status: Acute (2) Left breast abscess ICD Code: N61.1 Status: Acute (3) Hypokalemia ICD Code: E87.6 Status: Acute (4) Diarrhea ICD Code: R19.7 Status: Acute (5) Necrotizing fasciitis ICD Code: M72.6 Status: Acute (6) Lymphedema ICD Code: I89.0 Status: Chronic (7) HTN (hypertension) ICD Code: I10 Status: Acute (8) Morbid obesity ICD Code: E66.01 Status: Chronic Assessment and Plan - Status post breast Fluid aspiration growing Klebsiella pneumonia pansensitive ED, continue antibiotic per ID>> plan to change to CFTX with intent to oral abx transition cont po vanco x 2 wks after all abx stopped rechk stool for C.diff neg - BLESSING with hypernatremia: Resolving , status post iv fluid, no eosinophil in the urine unlikely related to Vanco, creatinine reach plateau around 1-1.4, will consult nephrology - Sepsis: source Left breast abscess S/P I & D. Continue w/ IV Abx per ID recommendation, appreciate their consult followed her recs for antibiotic. - Necrotizing Fasciitis: Recent admit 11/16-12/20/16 for Sepsis/Nec Fasc to Left Axilla/Chest Wall s/p emergent debridement by Dr. Lainez w/ placement of Wound VAC, currently on [facility]. Following w/ Dr. Lainez as outpatient, last visit w / no complications, next visit 01/10/17. Will consult for further eval. Consult Wound Management for assistance w/ Wound Vac. Wound vac is DCd . Patient has increased erythema of the left breast. Plan for repeat US for evaluation and poss drainage of abscess. Gen surgery is following, appreciate recommendations. - C. difficile diarrhea: Symptom improved, on by mouth Vanco with iv per ID, monitor clinical improvement - Lymphedema: Chronic. Worsening RLE w/ increased swelling. Previously on Lasix, will resume. we will consult podiatry and at the same time , educated pt about the need to keep leg elevated and applying compression stocking. Doppler US reviewed and no DVT Diabetic neuropathy. Start lyrica - Hypokalemia: lasix po prn , keep leg elevated , compression stocking , monitor BMP - HTN: Not optimal patient used to be on amlodipine, stop Norvasc due to her lower extremity lymphedema (may cause worsening), start clonidine for now until creatinine improved then patient may go on CAT inhibitor - Morbid Obesity: Chronic. Limited mobility due to body habitus, PT as needed. - DVT Prophylaxis: Mechanical contraindication secondary to severe LE edema. Pharmacologic contraindication secondary to Hemoccult +, high risk for bleeding. Will monitor - Social work for d/c planning as needed. Discharge Planning When cleared by surgery Problem Qualifiers (1) Morbid obesity: Qualified Code: E66.01 - Morbid obesity due to excess calories Gabby Casiano MD January 22, 2017 10:35
--- NOTE | 2017-01-22 11:26 | RADRPT ---
EXAM DATE/TIME: 01/22/2017 10:42 [place] COMPARISON: US BREAST LEFT, January 14, 2017, 7:57. US BREAST LEFT, January 16, 2017, 15:28. INDICATIONS : Evaluate for drainable left breast abscess. MEDICAL HISTORY : Hypertension. Ovarian cyst. Arthritis. Chronic lymphedema. SURGICAL HISTORY : Drain placement and removal from left breast. ENCOUNTER: [facility] ACUITY: 4-6 days PAIN SCORE: 8/10 LOCATION: Left breast. FINDINGS: There is diffuse edema with multiple small areas of fluid which is too small to drain. There is no fo mendoza single abscess. CONCLUSION: Diffuse edema with multiple small areas of fluid with no single focal abscess. Rigo Serrano MD on January 22, 2017 at 11:21 Board Certified Radiologist. This report was verified electronically.
[2017-01-22] MEDS: cefTRIAXone INJ 2,000 MG in SODIUM CHLORIDE 0.9% INJ 100 ML IV SCH (11:39)
[2017-01-22 12:00] VITALS: BP 139/91; PULSE 91; RESP 18; TEMP 97.8; O2SAT 97
[2017-01-22 16:00] VITALS: BP 139/86; PULSE 88; RESP 18; TEMP 97.2; O2SAT 100
--- NOTE | 2017-01-22 16:13 | HHI.PR ---
Subjective Subjective Notes no acute issues, no fevers Objective Vitals/I&O Vital Signs Date Time Temp Pulse Resp B/P Pulse Ox O2 Delivery O2 Flow Rate FiO2 01/22/17 12:00 97.8 91 18 139/91 97 01/19/17 20:20 Room Air Extremities: Other (edema) Wound Wound : Wound Location: Chest (left breast with edema, left axilla healing granulation tissue) A/P Assessment and Plan s/p I and d with vac left chest and axilla PLAN -US LEFT breast to eval for abscess - no definable abscess -Okay to shower between dressing changes -Wet to dry dressing with packing to LEFT axillary---increased frequency of dressing change to 4 times daily -Wet to dry dressing to LEFT breast---increased frequency of dressing change to 4 times daily -Pain control -Regular diet -ID managing antibiotics - d/c planning Rubin Mayes MD January 22, 2017 16:13
[2017-01-22] MEDS: HEPARIN SODIUM - SQ 10,000 UNITS/ML VIAL SQ SCH ×2 (17:20→23:25)
[2017-01-22] MEDS ORDERED: PREGABALIN 25 MG CAP PO ONE (17:30)
[2017-01-22 20:00] VITALS: BP 161/110; PULSE 87; RESP 22; TEMP 98.9; O2SAT 100
[2017-01-22] MEDS: traZODone HCL 50 MG TAB PO SCH (23:26)
[2017-01-22] MEDS: PREGABALIN 25 MG CAP PO SCH (23:27)
[2017-01-22] MEDS: ACETAMINOPHEN 325 MG TAB PO PRN (23:49)
[2017-01-23] VITALS: BP 129/76; PULSE 92; RESP 18; TEMP 97.1; O2SAT 98
[2017-01-23] MEDS: cloNIDine HCL 0.1 MG TAB PO PRN
[2017-01-23] MEDS: METOPROLOL TARTRATE 50 MG TAB PO SCH ×3 (01:46→17:09)
[2017-01-23] MEDS: VANCOMYCIN 500 MG VIAL (FOR ORAL USE ONLY) PO SCH ×3 (04:37→17:09)
[2017-01-23] MEDS: HEPARIN SODIUM - SQ 10,000 UNITS/ML VIAL SQ SCH ×3 (04:37→21:36)
[2017-01-23] MEDS: hydrALAZINE HCL 25 MG TAB PO SCH ×3 (04:38→21:35)
[2017-01-23] MEDS: PREGABALIN 25 MG CAP PO SCH ×2 (04:38→14:47)
[2017-01-23] MEDS: ACETAMINOPHEN/HYDROcodone 325 MG/5 MG TAB PO PRN ×5 (04:53→21:43)
[2017-01-23] MEDS: MORPHINE SULFATE 4 MG/ML INJ IV PRN (04:53)
[2017-01-23 06:32] VITALS: BP 142/79; PULSE 88; RESP 16; TEMP 97.6; O2SAT 98
[2017-01-23 07:24] LABS: BASOPHIL % 0.4 % (0.0-2.0); EOSINOPHIL # 0.4 TH/MM3 (0-0.4); EOSINOPHIL % 3.3 % (0.0-4.0); HEMO FLAGS DIFF FINAL; LYMPH % 11.3 % (9.0-44.0); LYMPHOCYTE # 1.4 TH/MM3 (1.0-4.8); MEAN CELL VOLUME 87.3 FL (80.0-100.0); MEAN CORPUSCULAR HEMOGLOBIN 28.5 PG (27.0-34.0); MEAN CORPUSCULAR HGB CONC 32.6 % (32.0-36.0); MONO % 7.5 % (0.0-8.0); NEUT % 77.5 % (16.0-70.0); PLATELET COUNT 419 TH/MM3 (150-450); RED BLOOD COUNT 3.09 MIL/MM3 (4.00-5.30); RED CELL DISTRIBUTION WIDTH 18.2 % (11.6-17.2); WHITE BLOOD COUNT 12.8 TH/MM3 (4.0-11.0)
[2017-01-23 07:25] VITALS: BP 141/81; PULSE 87; RESP 19; TEMP 96.5; O2SAT 99
[2017-01-23 07:47] LABS: POTASSIUM 3.7 MEQ/L (3.5-5.1)
[2017-01-23] MEDS: PANTOPRAZOLE SODIUM 40 MG VIAL IV PUSH SCH ×2 (09:00→21:35)
[2017-01-23] MEDS: SODIUM CHLORIDE 0.9% FLUSH 10 ML FLUSH IV FLUSH SCH ×2 (09:00→21:35)
[2017-01-23] MEDS: cloNIDine HCL 0.2 MG TAB PO SCH ×2 (09:04→21:35)
[2017-01-23] MEDS: FUROSEMIDE 20 MG TAB PO SCH (09:04)
--- NOTE | 2017-01-23 11:19 | HHI.NPPN ---
Subjective Renal Failure: Acute Interval History Renal function is stable. No acute overnight events. (Amy Fernandes) Objective Data Data 01/22/17 01/23/17 18:59 06:59 Intake Total 1060 ml Output Total 352 ml Balance 708 ml Intake Oral 960 ml IV Total 100 ml Output Urine Total 350 ml Stool Total 2 ml # Voids 1 # Bowel Movements 2 Vital Signs Date Time Temp Pulse Resp B/P Pulse Ox O2 Delivery O2 Flow Rate FiO2 01/23/17 07:25 96.5 87 19 141/81 99 01/23/17 06:32 97.6 88 16 142/79 98 01/23/17 00:00 97.1 92 18 129/76 98 01/22/17 20:00 98.9 87 22 161/110 100 01/22/17 16:00 97.2 88 18 139/86 100 01/22/17 12:00 97.8 91 18 139/91 97 (Amy Fernandes) -: 01/23/17 0650 01/23/17 0630 Physical Exam General Appearance: No Acute Distress, Comfortable (Amy Fernandes) Eyes Eye Exam: Pupils Equal (Amy Fernandes) Neck Neck Exam: Neck Supple (Amy Fernandes) Pulmonary Resp Exam: Breath Sounds Equal, No Distress, Rhonchi, Decreased Bases (Amy Fernandes) Cardiology CV Exam: Regular, Normal Sinus Rhythm (Amy Fernandes) Gastrointestinal/Abdomen GI Exam: Soft, Non-Tender, Bowel Sounds Present, Distended (Amy Fernandes) Musculoskeletal MS Exam: Normal Tone, Good Strength (Amy Fernandes) Integumentary Skin Exam: Warm, Dry (Amy Fernandes) Extremeties Extremities Exam: Pedal Pulses Palpable, Moderate Edema (Amy Fernandes) Neurologic Neuro Exam: Alert, Awake, Oriented, Speech Clear, Moving All Extremities ( Amy Fernandes) Psychiatric Psych Exam: Appropriate Responses (Amy Fernandes) Assessment/Plan Discussed Condition With: Patient Problem List: (1) BLESSING (acute kidney injury) Plan: in a pt with normal renal function at baseline BLESSING suspected from vancomycin toxicity ; it has since been stopped renal function is stable she no proteinuria on UA renal US negative has edema, see below. avoid nephrotoxins we will sign off at this time, please reconsult us if needed (2) Edema Plan: chronic lymphedema on lasix daily, amlodipine has been stopped as it may contribute to lower extremity edema may benefit from lymphedema clinic after discharge (3) Hypertension Plan: continue BP medications avoid CAT (Amy Fernandes) Plan patient was seen and examined. Renal function has improved. We will sign off, please call if needed. (Juan Francisco Cruz MD) Amy Fernandes January 23, 2017 11:19 Juan Francisco Cruz MD January 23, 2017 16:29
[2017-01-23 11:30] VITALS: BP 132/76; PULSE 90; RESP 19; TEMP 97.5; O2SAT 100
[2017-01-23] MEDS: ACETAMINOPHEN 325 MG TAB PO PRN (15:00)
[2017-01-23] MEDS: cefTRIAXone INJ 2,000 MG in SODIUM CHLORIDE 0.9% INJ 100 ML IV SCH (15:00)
[2017-01-23 15:25] VITALS: BP 182/113; PULSE 108; RESP 20; TEMP 96.9; O2SAT 99
--- NOTE | 2017-01-23 17:17 | HHI.PR ---
Subjective Remarks Seen earlier. Says she still has LE pain and also during the night . Chest pain with dressing changs however is getiing less. and pain is controlled by current meds. She is also complaining of muscle spasm and says she is taking flexril 10 mg 3 x daily at home. Patient denies any fevers. No chest pain, sob, n/v/d/c. Objective Vitals Vital Signs Date Time Temp Pulse Resp B/P Pulse Ox O2 Delivery O2 Flow Rate FiO2 01/23/17 15:47 20 01/23/17 15:47 20 01/23/17 15:25 96.9 108 20 182/113 99 01/23/17 13:54 22 01/23/17 11:30 97.5 90 19 132/76 100 01/23/17 07:25 96.5 87 19 141/81 99 01/23/17 06:32 97.6 88 16 142/79 98 01/23/17 00:00 97.1 92 18 129/76 98 01/22/17 20:00 98.9 87 22 161/110 100 I/O 01/22/17 01/22/17 01/22/17 01/23/17 01/23/17 01/23/17 07:00 15:00 23:00 07:00 15:00 23:00 Intake Total 0 ml 960 ml 100 ml Output Total 250 ml 352 ml Balance -250 ml 608 ml 100 ml Intake Oral 960 ml IV Total 0 ml 100 ml Output Urine Total 250 ml 350 ml Stool Total 2 ml # Voids 1 0 4 # Bowel Movements 0 1 1 2 Result Diagram: 01/23/17 0650 01/23/17 0630 Imaging Last Impressions Lower Extremity Ultrasound 01/20/17 0000 Signed Impressions: Service Date/Time: Friday, January 20, 2017 20:20 - CONCLUSION: No DVT of either lower extremity. Aristides Riley MD Breast Ultrasound 01/20/17 0000 Signed Impressions: Service Date/Time: Sunday, January 22, 2017 10:42 - CONCLUSION: Diffuse edema with multiple small areas of fluid with no single focal abscess. Rigo Serrano MD Needle Aspiration Ultrasound 01/16/17 0000 Signed Impressions: Service Date/Time: Monday, January 16, 2017 15:27 - CONCLUSION: Ultrasound guided aspiration of right axillary abscess. Approximately 5 cc of bloody pus. Residual superficial abscess remains as the remaining fluid was too viscus to drain. Obie Mccloud MD Renal Ultrasound 01/08/17 0000 Signed Impressions: Service Date/Time: Sunday, January 08, 2017 18:32 - CONCLUSION: Symmetric enlarged kidneys bilaterally. No focal lesions seen.. Kulwinder Fish MD Chest X-Ray 01/05/17 2225 Signed Impressions: Service Date/Time: December 22:37 - CONCLUSION: 1. Focal consolidation within the right medial lung base. Infiltrate versus rounded atelectasis. Followup study suggested to document resolution. 2. Cardiomegaly. Kulwinder Chaudhary Jr., MD Objective Remarks GENERAL: This is a well-nourished, well-developed patient, in no apparent distress. SKIN: Warm skin on the left breast, wound VAC applied to the left chest under her axilla HEAD: Atraumatic. Normocephalic. EYES: Pupils equal round and reactive. Extraocular motions intact. No scleral icterus. ENT: Nose without bleeding, or drainage, Airway patent. NECK: Trachea midline. Supple CHEST: Midaxillary wound looks clean. However the left breast is more edematous and painful, mild erythema. CARDIOVASCULAR: Regular rate and rhythm without murmurs, gallops, or rubs. RESPIRATORY: Fair air entry bilaterally. No wheezes, rales, or rhonchi. GASTROINTESTINAL: Abdomen soft, non-tender, nondistended. Positive bowel sounds MUSCULOSKELETAL: Extremities +2 edema on the LLE, +2 RLE NEUROLOGICAL: Awake and alert. Moves all extremity. Normal speech.no focal neurological deficit Procedures 01/06- I and D with WOund VAC application A/P Problem List: (1) Sepsis ICD Code: A41.9 Status: Acute (2) Left breast abscess ICD Code: N61.1 Status: Acute (3) Hypokalemia ICD Code: E87.6 Status: Acute (4) Diarrhea ICD Code: R19.7 Status: Acute (5) Necrotizing fasciitis ICD Code: M72.6 Status: Acute (6) Lymphedema ICD Code: I89.0 Status: Chronic (7) HTN (hypertension) ICD Code: I10 Status: Acute (8) Morbid obesity ICD Code: E66.01 Status: Chronic Assessment and Plan - Status post breast Fluid aspiration growing Klebsiella pneumonia pansensitive ED, continue antibiotic per ID>> plan to change to CFTX with intent to oral abx transition cont po vanco x 2 wks after all abx stopped rechk stool for C.diff neg - BLESSING with hypernatremia: Resolving , status post iv fluid, no eosinophil in the urine unlikely related to Vanco, creatinine reach plateau around 1-1.4, will consult nephrology - Sepsis: source Left breast abscess S/P I & D. Continue w/ IV Abx per ID recommendation, appreciate their consult followed her recs for antibiotic. - Necrotizing Fasciitis: Recent admit 11/16-12/20/16 for Sepsis/Nec Fasc to Left Axilla/Chest Wall s/p emergent debridement by Dr. Lainez w/ placement of Wound VAC, currently on [facility]. Following w/ Dr. Lainez as outpatient, last visit w / no complications, next visit 01/10/17. Will consult for further eval. Consult Wound Management for assistance w/ Wound Vac. Wound vac is DCd . Patient has increased erythema of the left breast. Plan for repeat US for evaluation and poss drainage of abscess.b Repeat US without abscess. Gen surgery following, appreciate recommendations. - C. difficile diarrhea: Symptom improved, on by mouth Vanco with iv per ID, monitor clinical improvement - Lymphedema: Chronic. Worsening RLE w/ increased swelling. Previously on Lasix, will resume. we will consult podiatry and at the same time , educated pt about the need to keep leg elevated and applying compression stocking. Doppler US reviewed and no DVT Diabetic neuropathy. Increase lyrica Muscle spasm: flexeril at night - Hypokalemia: lasix po prn , keep leg elevated , compression stocking , monitor BMP - HTN: Not optimal patient used to be on amlodipine, stop Norvasc due to her lower extremity lymphedema (may cause worsening), start clonidine for now until creatinine improved then patient may go on CAT inhibitor - Morbid Obesity: Chronic. Limited mobility due to body habitus, PT as needed. - DVT Prophylaxis: Mechanical contraindication secondary to severe LE edema. Pharmacologic contraindication secondary to Hemoccult +, high risk for bleeding. Will monitor - Social work for d/c planning as needed. Discharge Planning When improved and cleared by consultants. Problem Qualifiers (1) Morbid obesity: Qualified Code: E66.01 - Morbid obesity due to excess calories Gabby Casiano MD January 23, 2017 17:17
[2017-01-23 20:00] VITALS: BP_SYST 128; BP_SYST 133; BP_DIAS 79; BP_DIAS 80; PULSE 101; PULSE 96; RESP 20; TEMP 98.7; TEMP 99.6; O2SAT 100
[2017-01-23] MEDS ORDERED: CYCLOBENZAPRINE HCL 10 MG TAB PO SCH (21:00)
[2017-01-23] MEDS: traZODone HCL 50 MG TAB PO SCH (21:35)
[2017-01-24] VITALS: BP 132/77; PULSE 98; RESP 20; TEMP 97.7; O2SAT 98
[2017-01-24] MEDS: VANCOMYCIN 500 MG VIAL (FOR ORAL USE ONLY) PO SCH ×4 (00:12→17:26)
[2017-01-24] MEDS: METOPROLOL TARTRATE 50 MG TAB PO SCH ×3 (00:13→17:26)
[2017-01-24] MEDS: MORPHINE SULFATE 4 MG/ML INJ IV PRN ×2 (00:14→12:24)
[2017-01-24 04:00] VITALS: BP 127/75; PULSE 87; RESP 20; TEMP 97.4; O2SAT 98
[2017-01-24] MEDS: HEPARIN SODIUM - SQ 10,000 UNITS/ML VIAL SQ SCH ×2 (05:00→14:02)
[2017-01-24] MEDS: ACETAMINOPHEN/HYDROcodone 325 MG/5 MG TAB PO PRN ×3 (05:00→17:26)
[2017-01-24] MEDS: hydrALAZINE HCL 25 MG TAB PO SCH ×2 (05:00→14:01)
[2017-01-24 07:26] LABS: BICARBONATE 25.2 MEQ/L (21.0-32.0); POTASSIUM 3.8 MEQ/L (3.5-5.1)
[2017-01-24 07:33] LABS: AUTOMATED NEUTROPHIL # 8.6 TH/MM3 (1.8-7.7); BASOPHIL # 0.1 TH/MM3 (0-0.2); BASOPHIL % 0.5 % (0.0-2.0); EOSINOPHIL # 0.4 TH/MM3 (0-0.4); EOSINOPHIL % 3.2 % (0.0-4.0); HEMATOCRIT 26.3 % (35.0-46.0); HEMO FLAGS DIFF FINAL; LYMPH % 15.6 % (9.0-44.0); LYMPHOCYTE # 1.9 TH/MM3 (1.0-4.8); MEAN CELL VOLUME 87.7 FL (80.0-100.0); MEAN CORPUSCULAR HEMOGLOBIN 28.1 PG (27.0-34.0); MONO % 8.2 % (0.0-8.0); NEUT % 72.5 % (16.0-70.0); PLATELET COUNT 406 TH/MM3 (150-450); RED CELL DISTRIBUTION WIDTH 17.6 % (11.6-17.2); WHITE BLOOD COUNT 11.9 TH/MM3 (4.0-11.0)
[2017-01-24 08:00] VITALS: BP 132/82; PULSE 86; RESP 16; TEMP 97.7; O2SAT 98
[2017-01-24] MEDS: ONDANSETRON HCL 4 MG/2 ML VIAL IVP PRN (08:15)
[2017-01-24] MEDS: PANTOPRAZOLE SODIUM 40 MG VIAL IV PUSH SCH (08:16)
[2017-01-24] MEDS: SODIUM CHLORIDE 0.9% FLUSH 10 ML FLUSH IV FLUSH SCH (08:16)
[2017-01-24] MEDS: cloNIDine HCL 0.2 MG TAB PO SCH (08:16)
[2017-01-24] MEDS: FUROSEMIDE 20 MG TAB PO SCH (08:16)
--- NOTE | 2017-01-24 08:29 | HHI.PR ---
Subjective Remarks Patient in nad. Feels much better today. Says elidia is helping a lot and she did not have any pain overnight and in the morning today. No feevr or chills. left breast swelling is improving. there is no redness. Less chest pain. No n/v. Has diarrhea, improving. Objective Vitals Vital Signs Date Time Temp Pulse Resp B/P Pulse Ox O2 Delivery O2 Flow Rate FiO2 01/24/17 04:00 97.4 87 20 127/75 98 01/24/17 00:00 97.7 98 20 132/77 98 01/23/17 20:00 98.7 96 20 133/80 100 01/23/17 18:09 20 01/23/17 15:47 20 01/23/17 15:47 20 01/23/17 15:25 96.9 108 20 182/113 99 01/23/17 11:30 97.5 90 19 132/76 100 I/O 01/23/17 01/23/17 01/23/17 01/24/17 01/24/17 01/24/17 07:00 15:00 23:00 07:00 15:00 23:00 Intake Total 240 ml Balance 240 ml Intake Oral 240 ml # Voids 0 4 2 1 # Bowel Movements 1 2 2 1 Result Diagram: 01/24/1762301/24/17623 Imaging Last Impressions Lower Extremity Ultrasound 01/20/17 0000 Signed Impressions: Service Date/Time: Friday, January 20, 2017 20:20 - CONCLUSION: No DVT of either lower extremity. Aristides Riley MD Breast Ultrasound 01/20/17 0000 Signed Impressions: Service Date/Time: Sunday, January 22, 2017 10:42 - CONCLUSION: Diffuse edema with multiple small areas of fluid with no single focal abscess. Rigo Serrano MD Needle Aspiration Ultrasound 01/16/17 0000 Signed Impressions: Service Date/Time: Monday, January 16, 2017 15:27 - CONCLUSION: Ultrasound guided aspiration of right axillary abscess. Approximately 5 cc of bloody pus. Residual superficial abscess remains as the remaining fluid was too viscus to drain. Obie Mccloud MD Renal Ultrasound 01/08/17 0000 Signed Impressions: Service Date/Time: Sunday, January 08, 2017 18:32 - CONCLUSION: Symmetric enlarged kidneys bilaterally. No focal lesions seen.. Kulwinder Fish MD Chest X-Ray 01/05/17 9751 Signed Impressions: Service Date/Time: December 22:37 - CONCLUSION: 1. Focal consolidation within the right medial lung base. Infiltrate versus rounded atelectasis. Followup study suggested to document resolution. 2. Cardiomegaly. Kulwinder Chaudhary Jr., MD Objective Remarks GENERAL: This is a well-nourished, well-developed patient, in no apparent distress. SKIN: Warm skin on the left breast, wound VAC applied to the left chest under her axilla HEAD: Atraumatic. Normocephalic. EYES: Pupils equal round and reactive. Extraocular motions intact. No scleral icterus. ENT: Nose without bleeding, or drainage, Airway patent. NECK: Trachea midline. Supple CHEST: Midaxillary wound looks clean. However the left breast is more edematous and painful, mild erythema. CARDIOVASCULAR: Regular rate and rhythm without murmurs, gallops, or rubs. RESPIRATORY: Fair air entry bilaterally. No wheezes, rales, or rhonchi. GASTROINTESTINAL: Abdomen soft, non-tender, nondistended. Positive bowel sounds MUSCULOSKELETAL: Extremities +2 edema on the LLE, +2 RLE NEUROLOGICAL: Awake and alert. Moves all extremity. Normal speech.no focal neurological deficit Procedures 01/06- I and D with WOund VAC application A/P Problem List: (1) Sepsis ICD Code: A41.9 Status: Acute (2) Left breast abscess ICD Code: N61.1 Status: Acute (3) Hypokalemia ICD Code: E87.6 Status: Acute (4) Diarrhea ICD Code: R19.7 Status: Acute (5) Necrotizing fasciitis ICD Code: M72.6 Status: Acute (6) Lymphedema ICD Code: I89.0 Status: Chronic (7) HTN (hypertension) ICD Code: I10 Status: Acute (8) Morbid obesity ICD Code: E66.01 Status: Chronic Assessment and Plan - Status post breast Fluid aspiration growing Klebsiella pneumonia pansensitive ED, continue antibiotic per ID>> plan to change to CFTX with intent to oral abx transition cont po vanco x 2 wks after all abx stopped rechk stool for C.diff neg - BLESSING with hypernatremia: Resolving , status post iv fluid, no eosinophil in the urine unlikely related to Vanco, creatinine reach plateau around 1-1.4, will consult nephrology - Sepsis: source Left breast abscess S/P I & D. Continue w/ IV Abx per ID recommendation, appreciate their consult followed her recs for antibiotic. - Necrotizing Fasciitis: Recent admit 11/16-12/20/16 for Sepsis/Nec Fasc to Left Axilla/Chest Wall s/p emergent debridement by Dr. Lainez w/ placement of Wound VAC, currently on [facility]. Following w/ Dr. Lainez as outpatient, last visit w / no complications, next visit 01/10/17. Will consult for further eval. Consult Wound Management for assistance w/ Wound Vac. Wound vac is DCd . Patient has increased erythema of the left breast. Plan for repeat US for evaluation and poss drainage of abscess. Repeat US without abscess. Swelling improving. Gen surgery cleared for DDC to follow up as OP. Plan for MRI left breast with contrast as OP to r/o underlying malignancy. Discussed with ID specialist Dr Marsh, appreciate recommendations. Can dC patient to follow up as OP, augmentin 875 mg po bid x 7 days annd continue vanco PO for Cdiff. - C. difficile diarrhea: Symptom improved, on by mouth Vanco with iv per ID, monitor clinical improvement. Repeat Cdiff 01/19 is negative. Continue vanco at OR for 2 weeks per ID. - Lymphedema: Chronic. Worsening RLE w/ increased swelling. Previously on Lasix, will resume. Improving. we will consult podiatry and at the same time , educated pt about the need to keep leg elevated and applying compression stocking. Doppler US reviewed and no DVT Diabetic neuropathy. Continue lyrica, patient has good response. Muscle spasm: flexeril at night - Hypokalemia: lasix po prn , keep leg elevated , compression stocking , monitor BMP - HTN: Not optimal patient used to be on amlodipine, stop Norvasc due to her lower extremity lymphedema (may cause worsening), start clonidine for now until creatinine improved then patient may go on CAT inhibitor - Morbid Obesity: Chronic. Limited mobility due to body habitus, PT as needed. - DVT Prophylaxis: Mechanical contraindication secondary to severe LE edema. Pharmacologic contraindication secondary to Hemoccult +, high risk for bleeding. Will monitor - Social work for d/c planning as needed. Discharge Planning Improving, cleared by consultants. To follow up as OP with PCP and consultants. Problem Qualifiers (1) Morbid obesity: Qualified Code: E66.01 - Morbid obesity due to excess calories Gabby Casiano MD January 24, 2017 08:29
[2017-01-24] MEDS ORDERED: PREGABALIN 75 MG CAP PO SCH (09:00)
--- NOTE | 2017-01-24 09:20 | HHI.DS ---
Discharge Summary Admission Date Jan 05, 2017 at 20:07 Discharge Date: January 24, 2017 Admitting Diagnosis left breast abscess. Left breast cellulitis. (1) Sepsis ICD Code: A41.9 Diagnosis: Principal (2) Left breast abscess ICD Code: N61.1 Diagnosis: Principal (3) Hypokalemia ICD Code: E87.6 Diagnosis: Secondary (4) Diarrhea ICD Code: R19.7 Diagnosis: Principal (5) Necrotizing fasciitis ICD Code: M72.6 (6) Lymphedema ICD Code: I89.0 Diagnosis: Principal (7) HTN (hypertension) ICD Code: I10 Diagnosis: Secondary (8) Morbid obesity ICD Code: E66.01 Diagnosis: Secondary Procedures 01/06- I and D with WOund VAC application Brief History - From Admission This is a 36-year-old female with a PMH of Morbid Obesity, HTN, Chronic Lymphedema, Tobacco Abuse and h/o Necrotizing Fasciitis to Left Chest Wall who presented to the ER at the suggestion of [facility] RN for evaluation of left breast abscess. Pt w/ previous admit 11/16-12/20/16 for Sepsis and Left Axillary/Chest Necrotizing Fasciitis s/p emergent surgical intervention by Dr. Lainez on 11/16/16 s/p VAC and completed IV Abx by ID. States she was seen by Dr. Lainez in office last week, no issues at that time. Today, [facility] RN noted left breast abscess w/ purulent drainage. Denies fever or chills. Does note epigastric pain and diarrhea which has been ongoing x2 wks, states diarrhea occurs only after eating. Reports dark colored stool, but states she's been taking Pepto for her abdominal pain. Hemoccult + in ER, started on Protonix gtt. on arrival, BP 167 /103, HR 103, O2 sat 98% on RA, Afebrile. WBC 24.3. K+ 2.5, s/p replacement in ER. S/p Blood Cultures, Vanc/Zosyn. CBC/BMP: 01/24/17 0624 01/24/17 0624 Significant Findings Laboratory Tests Test 5/801/23/17 01/24/17 06:30 06:50 06:24 Sodium Level 146 MEQ/L 146 MEQ/L (136-145) (136-145) Chloride Level 112 MEQ/L 113 MEQ/L (98-107) (98-107) Creatinine 1.16 MG/DL 1.13 MG/DL (0.50-1.00) (0.50-1.00) Estimat Glomerular Filtration 64 ML/MIN (>89) 66 ML/MIN (>89) Rate Random Glucose 108 MG/DL 111 MG/DL (74-106) (74-106) Calcium Level 8.2 MG/DL 8.2 MG/DL (8.5-10.1) (8.5-10.1) 25-Hydroxy Vitamin D Total 5.3 ng/ML (30-100) White Blood Count 12.8 TH/MM3 11.9 TH/MM3 (4.0-11.0) (4.0-11.0) Red Blood Count 3.09 MIL/MM3 3.00 MIL/MM3 (4.00-5.30) (4.00-5.30) Hemoglobin 8.8 GM/DL 8.4 GM/DL (11.6-15.3) (11.6-15.3) Hematocrit 27.0 % 26.3 % (35.0-46.0) (35.0-46.0) Red Cell Distribution Width 18.2 % 17.6 % (11.6-17.2) (11.6-17.2) Mean Platelet Volume 6.9 FL (7.0-11.0) Neutrophils (%) (Auto) 77.5 % 72.5 % (16.0-70.0) (16.0-70.0) Neutrophils # (Auto) 10.0 TH/MM3 8.6 TH/MM3 (1.8-7.7) (1.8-7.7) Monocytes # (Auto) 1.0 TH/MM3 1.0 TH/MM3 (0-0.9) (0-0.9) Monocytes (%) (Auto) 8.2 % (0.0-8.0) Imaging Last Impressions Lower Extremity Ultrasound 01/20/17 0000 Signed Impressions: Service Date/Time: Friday, January 20, 2017 20:20 - CONCLUSION: No DVT of either lower extremity. Aristides Riley MD Breast Ultrasound 01/20/17 0000 Signed Impressions: Service Date/Time: Sunday, January 22, 2017 10:42 - CONCLUSION: Diffuse edema with multiple small areas of fluid with no single focal abscess. Rigo Serrano MD Needle Aspiration Ultrasound 01/16/17 0000 Signed Impressions: Service Date/Time: Monday, January 16, 2017 15:27 - CONCLUSION: Ultrasound guided aspiration of right axillary abscess. Approximately 5 cc of bloody pus. Residual superficial abscess remains as the remaining fluid was too viscus to drain. Obie Mccloud MD Renal Ultrasound 01/08/17 0000 Signed Impressions: Service Date/Time: Sunday, January 08, 2017 18:32 - CONCLUSION: Symmetric enlarged kidneys bilaterally. No focal lesions seen.. Kulwinder Fish MD Chest X-Ray 01/05/17 2225 Signed Impressions: Service Date/Time: December 22:37 - CONCLUSION: 1. Focal consolidation within the right medial lung base. Infiltrate versus rounded atelectasis. Followup study suggested to document resolution. 2. Cardiomegaly. Kulwinder Chaudhary Jr., MD PE at Discharge GENERAL: This is a well-nourished, well-developed patient, in no apparent distress. SKIN: Warm skin on the left breast, wound VAC applied to the left chest under her axilla HEAD: Atraumatic. Normocephalic. EYES: Pupils equal round and reactive. Extraocular motions intact. No scleral icterus. ENT: Nose without bleeding, or drainage, Airway patent. NECK: Trachea midline. Supple CHEST: Midaxillary wound looks clean. However the left breast is more edematous and painful, mild erythema. CARDIOVASCULAR: Regular rate and rhythm without murmurs, gallops, or rubs. RESPIRATORY: Fair air entry bilaterally. No wheezes, rales, or rhonchi. GASTROINTESTINAL: Abdomen soft, non-tender, nondistended. Positive bowel sounds MUSCULOSKELETAL: Extremities +2 edema on the LLE, +2 RLE NEUROLOGICAL: Awake and alert. Moves all extremity. Normal speech.no focal neurological deficit Hospital Course - Status post breast Fluid aspiration growing Klebsiella pneumonia pansensitive ED, continue antibiotic per ID>> plan to change to CFTX with intent to oral abx transition cont po vanco x 2 wks after all abx stopped rechk stool for C.diff neg - BLESSING with hypernatremia: Resolving , status post iv fluid, no eosinophil in the urine unlikely related to Vanco, creatinine reach plateau around 1-1.4, will consult nephrology - Sepsis: source Left breast abscess S/P I & D. Continue w/ IV Abx per ID recommendation, appreciate their consult followed her recs for antibiotic. - Necrotizing Fasciitis: Recent admit 11/16-12/20/16 for Sepsis/Nec Fasc to Left Axilla/Chest Wall s/p emergent debridement by Dr. Lainez w/ placement of Wound VAC, currently on [facility]. Following w/ Dr. Lainez as outpatient, last visit w / no complications, next visit 01/10/17. Will consult for further eval. Consult Wound Management for assistance w/ Wound Vac. Wound vac is DCd . Patient has increased erythema of the left breast. Plan for repeat US for evaluation and poss drainage of abscess. Repeat US without abscess. Swelling improving. Gen surgery cleared for DDC to follow up as OP. Plan for MRI left breast with contrast as OP to r/o underlying malignancy. Discussed with ID specialist Dr Marsh, appreciate recommendations. Can dC patient to follow up as OP, augmentin 875 mg po bid x 7 days annd continue vanco PO for Cdiff. - C. difficile diarrhea: Symptom improved, on by mouth Vanco with iv per ID, monitor clinical improvement. Repeat Cdiff 01/19 is negative. Continue vanco at DC for 2 weeks per ID. - Lymphedema: Chronic. Worsening RLE w/ increased swelling. Previously on Lasix, will resume. Improving. we will consult podiatry and at the same time , educated pt about the need to keep leg elevated and applying compression stocking. Doppler US reviewed and no DVT Diabetic neuropathy. Continue lyrica, patient has good response. Muscle spasm: flexeril at night - Hypokalemia: lasix po prn , keep leg elevated , compression stocking , monitor BMP - HTN: Not optimal patient used to be on amlodipine, stop Norvasc due to her lower extremity lymphedema (may cause worsening), start clonidine for now until creatinine improved then patient may go on CAT inhibitor - Morbid Obesity: Chronic. Limited mobility due to body habitus, PT as needed. - DVT Prophylaxis: Mechanical contraindication secondary to severe LE edema. Pharmacologic contraindication secondary to Hemoccult +, high risk for bleeding. Will monitor - Social work for d/c planning as needed. Discharge Planning Improving, cleared by consultants. Plan for MRI Left breast with contrast as OP to r/o malignancy. To follow up as OP with PCP and consultants. Pt Condition on Discharge: Stable Discharge Disposition: Disch w/ Home Health Serv Discharge Time: > 30 minutes Discharge Instructions DIET: Follow Instructions for: Heart Healthy Diet, Diabetic Diet Other Activity Instructions: -Okay to shower between dressing changes -Wet to dry dressing with packing to LEFT axillary---increased frequency of dressing change to 4 times daily -Wet to dry dressing to LEFT breast---increased frequency of dressing change to 4 times daily Follow up Referrals: PCP Follow-up - 2-3 Days Surgical - 2 Weeks with Jose Armando Lainez MD New Orders: MRI Breast W&W/O Contrast, Uni - 1 Week New Medications: Amoxicillin-Clavulanate (Augmentin) 875-125 mg Tab 875 MG PO BID not for use in CrCl <30 ml/min. Infection #14 Ref 0 TAB Famotidine (Famotidine) 20 Mg Tab 20 MG PO BID gerd #60 Ref 0 TAB Lactobacillus Acidophilus (Lactinex) 1 Chew 1 TAB CHEW DAILY Nutritional Supplement #14 Ref 0 TAB Cyclobenzaprine (Flexeril) 10 Mg Tab 10 MG PO HS muscle spasm #14 TAB Furosemide (Furosemide) 20 Mg Tab 20 MG PO DAILY edema #30 TAB Hydrocodone-Acetaminophen (Hydrocodone-Acetaminophen) 5-325 mg Tab 1-2 TAB PO Q4H PRN pain management #45 TAB Metoprolol Tartrate (Lopressor) 50 Mg Tab 50 MG PO Q8H Blood Pressure Management #90 TAB Pregabalin (Lyrica) 75 Mg Cap 75 MG PO DAILY neuropathy/pain #30 CAP Vancomycin Inj (Vancomycin Inj) 500 Mg Inj 125 MG PO Q6HR c diff Days 13 INJECTION Continued Medications: Amlodipine (Norvasc) 5 Mg Tab 2.5 MG PO DAILY HTN Days 30 TAB Diphenhydramine-Acetaminophen (Tylenol Pm Extra Strength) 25-500 Mg Tab 2 TAB PO HS Hydralazine (Hydralazine) 25 Mg Tab 25 MG PO Q12HR Blood Pressure Management #60 TAB Discontinued Medications: Metoprolol Tartrate (Metoprolol Tartrate) 25 Mg Tab 50 MG PO BID HTN Days 30 TAB Gabby Casiano MD January 24, 2017 09:20
[2017-01-24] MEDS ORDERED: CYCL1TAB29 PO (09:24)
[2017-01-24] MEDS ORDERED: FURO20TA PO (09:24)
[2017-01-24] MEDS ORDERED: LYRI75CA PO (09:24)
[2017-01-24] MEDS ORDERED: FAMO20TA2 PO (09:24)
[2017-01-24] MEDS ORDERED: HYDR-3516 PO (09:24)
[2017-01-24] MEDS ORDERED: METO-309 PO (09:24)
--- NOTE | 2017-01-24 10:37 | HHI.PR ---
Addendum to Inpatient Note Additional Information dw Manda Mayes, Oh US did not showed drainable abscess, but has some fluid Surgery recommends to cont conservative tx - cont abx x 1 more week: Augmentin 875 mg po q 12 hrs x 7 days - cont vanco PO 125 mg q 6 hrs x 2 weeks - consider L breast MRI (can be done as o/p) unless rapid resolution of swelling, redness and pain occurs - fu with Dr Mayes in 1 wk Rachel Marsh MD January 24, 2017 10:37
--- NOTE | 2017-01-24 10:43 | HHI.FF ---
Face to Face Verification Diagnosis: (1) Necrotizing cellulitis (2) Abscess of chest wall (3) Chronic acquired lymphedema (4) Morbid obesity (5) Anemia (6) Diarrhea (7) Hypertension (8) Left breast abscess (9) Cellulitis of left breast Home Health Nursing Order: Wound care and dressing changes Instructions: -Okay to shower between dressing changes -Wet to dry dressing with packing to LEFT axillary---increased frequency of dressing change to 4 times daily -Wet to dry dressing to LEFT breast---increased frequency of dressing change to 4 times daily I have seen patient Bijal Martins on 01/24/17. My clinical findings support the need for the requested home health care services because: Ltd mobility - disease progression I certify that my clinical findings support that this patient is homebound because: Post-op weakness Gabby Casiano MD January 24, 2017 10:43
[2017-01-24] MEDS ORDERED: LACTCHW3 CHEW (10:49)
[2017-01-24] MEDS ORDERED: AUGM875T PO (10:49)
[2017-01-24 12:00] VITALS: BP 138/82; PULSE 84; RESP 16; TEMP 98; O2SAT 100
[2017-01-24 12:59] LABS: C. DIFF EPI 027 PRESUMPTIVE NEGATIVE (NEGATIVE); C. DIFF TOXIN PCR NEGATIVE (NEGATIVE)
[2017-01-24] MEDS: cefTRIAXone INJ 2,000 MG in SODIUM CHLORIDE 0.9% INJ 100 ML IV SCH (14:03)
--- NOTE | 2017-01-24 14:17 | HHI.PR ---
Subjective Subjective Notes Sitting up in bed Reports less pain in LEFT breast Overall feeling better Objective Vitals/I&O Vital Signs Date Time Temp Pulse Resp B/P Pulse Ox O2 Delivery O2 Flow Rate FiO2 01/24/17 12:48 20 01/24/17 12:00 98.0 84 138/82 100 Labs Laboratory Tests Test 01/24/17 01/24/17 06:24 11:05 White Blood Count 11.9 Red Blood Count 3.00 Hemoglobin 8.4 Hematocrit 26.3 Mean Corpuscular Volume 87.7 Mean Corpuscular Hemoglobin 28.1 Mean Corpuscular Hemoglobin 32.0 Concent Red Cell Distribution Width 17.6 Platelet Count 406 Mean Platelet Volume 7.1 Neutrophils (%) (Auto) 72.5 Lymphocytes (%) (Auto) 15.6 Monocytes (%) (Auto) 8.2 Eosinophils (%) (Auto) 3.2 Basophils (%) (Auto) 0.5 Neutrophils # (Auto) 8.6 Lymphocytes # (Auto) 1.9 Monocytes # (Auto) 1.0 Eosinophils # (Auto) 0.4 Basophils # (Auto) 0.1 CBC Comment DIFF FINAL Differential Comment Sodium Level 146 Potassium Level 3.8 Chloride Level 113 Carbon Dioxide Level 25.2 Anion Gap 8 Blood Urea Nitrogen 12 Creatinine 1.13 Estimat Glomerular Filtration 66 Rate Random Glucose 111 Calcium Level 8.2 Stool C. difficile Toxin (PCR) NEGATIVE Stl C. difficile Toxin PRESUMPTIVE Epiderm 027 NEGATIVE Cardiovascular: Regular Lungs: Clear Abdomen: Non-distended, Non-tender Narrative Exam LEFT breast---small indurated hard fluid collection at 4 o'clock position; dressing removed; no purulent drainage LEFT axillary--- open wound with good granulation of tissue; 3 areas of tunneling; packing removed; no purulent draining RIGHT axillary --- prior spontaneously draining abscess now closed; no palpable area of fluid collection A/P Assessment and Plan 36 year old female s/p NG of LEFT breast and axillary; re admitted with small LEFT breast abscess (s/p I&D) -US LEFT breast to eval for abscess ---no area of focal abscess -Okay to shower between dressing changes -Wet to dry dressing with packing to LEFT axillary---4 times daily -Wet to dry dressing to LEFT breast---4 times daily -Pain control -Regular diet -ID managing antibiotics - clear for DC when [facility] arranged; Follow up in the office in about 1 week Attending Statement patient seen at bedside pain improving no fevers d/c planning Attestation The exam, history, and the medical decision-making described in the above note were completed with the assistance of the mid-level provider. I reviewed and agree with the findings presented. I attest that I had a [id number] encounter with the patient on the same day, and personally performed and documented my assessment and findings in the medical record. Priyanka Ocasio January 24, 2017 14:17 Rubin Mayes MD January 29, 2017 18:25
[2017-01-24 16:00] VITALS: BP 167/91; PULSE 100; RESP 18; TEMP 98.4; O2SAT 99
[2017-01-24 20:00] VITALS: BP 157/98; PULSE 95; RESP 20; TEMP 98.6; O2SAT 100
== END 2017-01-24 21:06 | disposition home health service (06) | DRG 871 ==
LOC: NEPC 13:37 → NEDA 20:07 → N05A 22:31
PROVIDERS: ADMIT Hospitalist; ATTEND Hospitalist
PROC: 2W04X6Z Change Pressure Dressing on Chest Wall (ICD-10-PCS; 2017-01-06)
PROC: 0H9U3ZZ Drainage of Left Breast, Percutaneous Approach (ICD-10-PCS; principal; 2017-01-06 11:05)
PROC: 0H9U3ZX Drainage of Left Breast, Percutaneous Approach, Diagnostic (ICD-10-PCS; 2017-01-16)
DX: A41.9 Sepsis, unspecified organism (principal); M72.6 Necrotizing fasciitis; E87.0 Hyperosmolality and hypernatremia; N17.9 Acute kidney failure, unspecified; A04.7 Enterocolitis due to Clostridium difficile; Z68.43 Body mass index [BMI] 50.0-59.9, adult; N61.1 Abscess of the breast and nipple; I10 Essential (primary) hypertension; E87.6 Hypokalemia; I89.0 Lymphedema, not elsewhere classified; E66.01 Morbid (severe) obesity due to excess calories; B96.1 Klebsiella pneumoniae [K. pneumoniae] as the cause of diseases classified elsewhere; M62.838 Other muscle spasm; T36.8X5A Adverse effect of other systemic antibiotics, initial encounter; F17.210 Nicotine dependence, cigarettes, uncomplicated
CPT/HCPCS: 10160; 71010; 76642; 76775; 76937; 76942; 80048; 80053; 80069; 80202; 81001; 82306; 82565; 82570; 82607; 83605; 84156; 84300; 85007; 85025; 85027; 86403; 86850; 86900; 86901; 87015; 87040; 87070; 87077; 87102; 87116; 87186; 87205; 87206; 87493; 93970; 96365; 96375; C9113; J0696; J1644; J1940; J2175; J2250; J2270; J2405; J2543; J2710; J3010; J3370; J3480; J7030; J7040; J7050; J7070